=== PATIENT | female | born 1955 | race Caucasian/White ===

== ENCOUNTER 2016-10-07 14:07 | Emergency (ER) | payer BC ==
[2016-10-07 14:17] VITALS: RESP 18
--- NOTE | 2016-10-07 14:35 | ED ---
General Adult HPI - General Chief complaint: Neuro Symptoms/Deficit Stated complaint: R/O CVA Sent by Urgent Care Time Seen by Provider: 10/07/16 14:15 Source: patient, RN notes reviewed Mode of arrival: ambulatory Limitations: no limitations - History of Present Illness Initial comments: This is a 61-year-old female presents emergency department with right-sided facial droop. Patient states heart having some symptoms last evening and they have progressed today per patient states she smiles is her right side of her mouth does not rise. Patient states when she tries to drink she is drooling out of the right side of mouth. Patient states also closing her eyes real tight right eyelid doesn't close status left. Patient states she has had some tingling to the tongue as well. Patient denies any visual disturbance or speech disturbance. Patient denies any headache patient denies any extremity weakness or extremity numbness. Patient denies any recent fever or chills however she does mention she just got over a bad bout of canker sores in her mouth. Patient denies any chest pain shortness of breath difficulty breathing or palpitations - Related Data Home Medications Medication Instructions Recorded Confirmed Fexofenadine HCl [Shamika Allergy] 180 mg PO HS 05/06/15 10/07/16 Levothyroxine Sodium [Synthroid] 75 mcg PO DAILY@1200 05/06/15 10/07/16 Metoprolol Tartrate [Lopressor] 100 mg PO DAILY 05/06/15 10/07/16 Montelukast [Singulair] 10 mg PO HS 05/06/15 10/07/16 Pantoprazole [Protonix] 40 mg PO DAILY 05/06/15 10/07/16 Rosuvastatin [Crestor] 10 mg PO HS 05/06/15 10/07/16 Aspirin [Adult Low Dose Aspirin EC] 81 mg PO DAILY 10/07/16 10/07/16 Fluticasone Nasal [place] [Flonase 1 spray EA NOSTRIL BID 10/07/16 10/07/16 Nasal [place]] Ibuprofen [Motrin] 400 mg PO Q6HR PRN 10/07/16 10/07/16 Melatonin 1 mg PO HS 10/07/16 10/07/16 Multivitamins, Thera [Multivitamin 1 tab PO DAILY 10/07/16 10/07/16 (formulary)] Allergies Allergy/AdvReac Type Severity Reaction Status Date / Time Penicillins Allergy Rash/Hives Verified 10/07/16 15:23 Review of Systems ROS Statement: Those systems with pertinent positive or pertinent negative responses have been documented in the HPI. ROS Other: All systems not noted in ROS Statement are negative. Past Medical History Past Medical History: GERD/Reflux, Hypertension, Thyroid Disorder Additional Past Medical History / Comment(s): 05/06/15 . had a recent normal stress test per pt. She is being admitted with clinical impression of unstable angina pectoris. (, murmur, recent negative stress test, IBS, constipation, hypothyroidism, sciatica with low back and L leg pain, L wrist pulled ligament? hiatal hernia. History of Any Multi-Drug Resistant Organisms: None Reported Past Surgical History: Ablation, Section, Hysterectomy, Tonsillectomy Additional Past Surgical History / Comment(s): Uterine ablation, normal colonoscopy, EGD, 2 C-Sections Past Anesthesia/Blood Transfusion Reactions: Postoperative Nausea & Vomiting ( PONV) Past Psychological History: No Psychological Hx Reported Additional Psychological History / Comment(s): Pt resides with her spouse and 2 adult children. She is independent. She uses no assistive device. She drives. Smoking Status: Never smoker Past Alcohol Use History: None Reported Past Drug Use History: None Reported - Past Family History Father Family Medical History: Cancer Additional Family Medical History / Comment(s): Father has heart problems and has had prostate cancer. He is 78 yrs old. Mother Family Medical History: Cancer, Dementia Additional Family Medical History / Comment(s): Mother of dementia at age 78 yrs. General Exam - General Exam Comments Initial Comments: GENERAL: Patient is well-developed and well-nourished. Patient is nontoxic and well- hydrated and is in no acute distress. ENT: Neck is soft and supple. No significant lymphadenopathy is noted. Oropharynx is clear. Moist mucous membranes. Neck has full range of motion without eliciting any pain. EYES: The sclera were anicteric and conjunctiva were pink and moist. Extraocular movements were intact and pupils were equal round and reactive to light. Eyelids were unremarkable. PULMONARY: Unlabored respirations. Good breath sounds bilaterally. No audible rales rhonchi or wheezing was noted. CARDIOVASCULAR: There is a regular rate and rhythm without any murmurs gallops or rubs. ABDOMEN: Soft and nontender with normal bowel sounds. No palpable organomegaly was noted. There is no palpable pulsatile mass. SKIN: Skin is clear with no lesions or rashes and otherwise unremarkable. NEUROLOGIC: Patient is alert and oriented x3. Patient has some facial droop on the right side about the lip as well as the right eyelid. Motor and sensory are also intact. Normal speech, volume and content. Symmetrical smile. MUSCULOSKELETAL: Normal extremities with adequate strength and full range of motion. No lower extremity swelling or edema. No calf tenderness. LYMPHATICS: No significant lymphadenopathy is noted PSYCHIATRIC: Normal psychiatric evaluation. Normal interpersonal interactions appears functionally intact in deals appropriately with others. No signs of depression. No signs of anxiety. Limitations: no limitations Course Vital Signs 10/07/16 10/07/16 14:12 15:20 Temperature 98.4 F 98.4 F Pulse Rate 84 68 Respiratory 18 18 Rate Blood Pressure 186/101 187/95 O2 Sat by Pulse 99 99 Oximetry Medical Decision Making - Medical Decision Making EKG shows normal sinus rhythm at 74 bpm MT interval 140 QRS is 80 QT interval 370 QTC is 419 per patient's EKG shows no ST segment elevation or depression or T-wave abdomen is noted. CT shows no acute abnormality. Because the patient had symptoms similar to Alvarenga's palsy I started her on her cycle for prednisone. I spoke with Dr. Shaw and I will be admitting the patient with a neurological consult. - Lab Data Result diagrams: 10/07/16 14:42 10/07/16 14:42 Lab Results 10/07/16 10/07/16 10/07/16 Range/Units 14:42 14:42 14:42 WBC 6.6 (3.8-10.6) k/uL RBC 4.65 (3.80-5.40) m/uL Hgb 12.6 (11.4-16.0) gm/dL Hct 37.0 (34.0-46.0) % MCV 79.7 L (80.0-100.0) fL MCH 27.1 (25.0-35.0) pg MCHC 34.0 (31.0-37.0) g/dL RDW 12.8 (11.5-15.5) % Plt Count 335 (150-450) k/uL Neutrophils % 54 % Lymphocytes % 33 % Monocytes % 8 % Eosinophils % 1 % Basophils % 0 % Neutrophils # 3.6 (1.3-7.7) k/uL Lymphocytes # 2.2 (1.0-4.8) k/uL Monocytes # 0.5 (0-1.0) k/uL Eosinophils # 0.1 (0-0.7) k/uL Basophils # 0.0 (0-0.2) k/uL PT (9.0-12.0) sec INR (<1.1) APTT (22.0-30.0) sec Sodium 143 (137-145) mmol/L Potassium 4.0 (3.5-5.1) mmol/L Chloride 107 (98-107) mmol/L Carbon Dioxide 25 (22-30) mmol/L Anion Gap 11 mmol/L BUN 13 (7-17) mg/dL Creatinine 0.73 (0.52-1.04) mg/dL Est GFR (MDRD) Af Amer >60 (>60 ml/min/1.73 sqM) Est GFR (MDRD) Non-Af >60 (>60 ml/min/1.73 sqM) Glucose 113 H (74-99) mg/dL Calcium 9.8 (8.4-10.2) mg/dL Total Bilirubin 0.4 (0.2-1.3) mg/dL AST 31 (14-36) U/L ALT 45 (9-52) U/L Alkaline Phosphatase 120 (38-126) U/L Total Creatine Kinase 53 (30-135) U/L CK-MB (CK-2) 0.6 (0.0-2.4) ng/mL CK-MB (CK-2) Rel Index 1.1 Troponin I <0.012 (0.000-0.034) ng/mL Total Protein 7.8 (6.3-8.2) g/dL Albumin 4.6 (3.5-5.0) g/dL 10/07/16 Range/Units 14:42 WBC (3.8-10.6) k/uL RBC (3.80-5.40) m/uL Hgb (11.4-16.0) gm/dL Hct (34.0-46.0) % MCV (80.0-100.0) fL MCH (25.0-35.0) pg MCHC (31.0-37.0) g/dL RDW (11.5-15.5) % Plt Count (150-450) k/uL Neutrophils % % Lymphocytes % % Monocytes % % Eosinophils % % Basophils % % Neutrophils # (1.3-7.7) k/uL Lymphocytes # (1.0-4.8) k/uL Monocytes # (0-1.0) k/uL Eosinophils # (0-0.7) k/uL Basophils # (0-0.2) k/uL PT 9.9 (9.0-12.0) sec INR 1.0 (<1.1) APTT 22.4 (22.0-30.0) sec Sodium (137-145) mmol/L Potassium (3.5-5.1) mmol/L Chloride (98-107) mmol/L Carbon Dioxide (22-30) mmol/L Anion Gap mmol/L BUN (7-17) mg/dL Creatinine (0.52-1.04) mg/dL Est GFR (MDRD) Af Amer (>60 ml/min/1.73 sqM) Est GFR (MDRD) Non-Af (>60 ml/min/1.73 sqM) Glucose (74-99) mg/dL Calcium (8.4-10.2) mg/dL Total Bilirubin (0.2-1.3) mg/dL AST (14-36) U/L ALT (9-52) U/L Alkaline Phosphatase (38-126) U/L Total Creatine Kinase (30-135) U/L CK-MB (CK-2) (0.0-2.4) ng/mL CK-MB (CK-2) Rel Index Troponin I (0.000-0.034) ng/mL Total Protein (6.3-8.2) g/dL Albumin (3.5-5.0) g/dL Disposition Clinical Impression: CVA (cerebral vascular accident), Alvarenga's palsy Disposition: ADMITTED IP TO THIS HOSP Referrals: Alejandro Haq MD [Primary Care Provider] - 1-2 days Time of Disposition: 15:53
[2016-10-07 14:59] LABS: Basophils % (A) 0 %; CH 26.9; CHCM 33.9; Eosinophils # (A) 0.1 k/uL (0-0.7); Eosinophils % (A) 1 %; HDW 2.75; HGB 12.6 gm/dL (11.4-16.0); Luc # (Auto) 0.21; Luc % (Auto) 3; Lymphocytes # (A) 2.2 k/uL (1.0-4.8); Lymphocytes % (A) 33 %; MCH 27.1 pg (25.0-35.0); MCV 79.7 fL (80.0-100.0); Mean Platelet Volume 6.8; Monocytes # (A) 0.5 k/uL (0-1.0); Monocytes % (A) 8 %; Neutrophils # (A) 3.6 k/uL (1.3-7.7); Neutrophils % (A) 54 %; RBC 4.65 m/uL (3.80-5.40); RDW 12.8 % (11.5-15.5); WBC 6.6 k/uL (3.8-10.6); WBC (Perox) 6.94
[2016-10-07 15:02] LABS: ALT 45 U/L (9-52); AST 31 U/L (14-36); Alkaline Phosphatase 120 U/L (38-126); Anion Gap 11 mmol/L; Blood Urea Nitrogen 13 mg/dL (7-17); Calcium 9.8 mg/dL (8.4-10.2); Carbon Dioxide 25 mmol/L (22-30); Chloride 107 mmol/L (98-107); Glucose 113 mg/dL (74-99); Non-African American GFR(MDRD) >60 (>60 ml/min/1.73 sqM); Sodium 143 mmol/L (137-145); Total Bilirubin 0.4 mg/dL (0.2-1.3); Total Protein 7.8 g/dL (6.3-8.2)
[2016-10-07 15:06] LABS: Partial Thromboplastin Time 22.4 sec (22.0-30.0); Prothrombin Time 9.9 sec (9.0-12.0)
--- NOTE | 2016-10-07 15:08 | XR ---
EXAMINATION TYPE: XR chest 2V DATE OF EXAM ORDERED: 10/07/2016 3:01 PM HISTORY: altered mental status. REFERENCE: Previous study dated 05/06/2015. FINDINGS: The lungs are clear. Pleural spaces are clear. Heart size is normal. IMPRESSION: NORMAL CHEST.
[2016-10-07 15:13] LABS: Creatine Kinase 53 U/L (30-135)
--- NOTE | 2016-10-07 15:16 | CT ---
EXAMINATION TYPE: CT brain wo con DATE OF EXAM: 10/07/2016 3:07 PM COMPARISON: Previous study dated 07/28/2009. HISTORY: Neuro Deficits CT DLP: 1058 mGycm Automated exposure control for dose reduction was used. FINDINGS: Central structures are midline. There is no evidence of hydrocephalus. No acute focal lesion, mass ef fect or midline shift is seen. I do not see evidence of intracranial blood.. Visualized portions of the paranasal sinuses and mastoids are clear. No depressed skull fracture is s een. IMPRESSION: NORMAL CT SCAN OF THE BRAIN.
[2016-10-07 15:26] LABS: Creatine Kinase MB 0.6 ng/mL (0.0-2.4); Troponin I <0.012 ng/mL (0.000-0.034)
[2016-10-07] MEDS ORDERED: ASPIRIN 325 MG TAB PO STA (15:55)
[2016-10-07 16:04] VITALS: TEMP 98.6
[2016-10-07 17:02] VITALS: BP 169/78; PULSE 68
--- NOTE | 2016-10-07 17:07 | US ---
EXAMINATION TYPE: US carotid duplex BILAT DATE OF EXAM: 10/07/2016 4:55 PM COMPARISON: NONE CLINICAL HISTORY: Stenosis. Right facial drooping, left facial edema EXAM MEASUREMENTS: RIGHT: Peak Systolic Velocity (PSV) cm/sec ----- Right CCA: 91.5 ----- Right ICA: 133.8 ----- Right ECA: 72.3 ICA/CCA ratio: 1.5 RIGHT: End Diastole cm/sec ----- Right CCA: 27.5 ----- Right ICA: 37.2 ----- Right ECA: 12.8 LEFT: Peak Systolic Velocity (PSV) cm/sec ----- Left CCA: 83.2 ----- Left ICA: 129.1 ----- Left ECA: 67.2 ICA/CCA ratio: 1.6 LEFT: End Diastole cm/sec ----- Left CCA: 30.3 ----- Left ICA: 38.6 ----- Left ECA: 12.8 VERTEBRALS (direction of flow): Right Vertebral: Antegrade Left Vertebral: Antegrade Tortuous distal ICA's. IMPRESSION: Bilateral slightly elevated peak systolic velocities of the internal carotid arteries. F inding could relate to underlying hypertension as the degree of tang scale plaquing does not correlat e with hemodynamically significant stenosis. Alternatively stenosis of 50-69% bilaterally could be pr esent if there is lack of history of hypertension.
--- NOTE | 2016-10-07 19:49 | HP ---
HISTORY AND PHYSICAL and DISCHARGE SUMMARY DATE OF ADMISSION: REASON FOR ADMISSION: Right-sided facial numbness and weakness. HISTORY OF PRESENTING ILLNESS: This is a 61-year-old female with history of hypertension who comes in the hospital with complaints of acute-onset right-sided facial weakness and numbness. Patient stated that she noticed some drooping on the right side and diffuse numbness on the right side and inability to close her right eye that started the night before admission. Patient came to the emergency room with concern about a cerebrovascular accident. The patient denies having any additional complaints, including headaches, change in vision, nausea, vomiting focal motor or sensory deficits other than as described above. Patient denies having previous episodes of CVA or TIA. In the emergency room a CT scan of the head did not reveal any acute abnormalities. Her only symptoms are facial drooping and numbness from her forehead to the angle of mandible on the right side across the midline. Past medical history includes: 1. Dyslipidemia. 2. Hypertension. 3. Hypothyroidism. 4. Asthma. 5. Remote history of smoking. Surgical history includes: 1. . 2. Hysterectomy. 3. Tonsillectomy. SOCIAL HISTORY: Previous history of smoking. Denies significant alcohol or drug use. FAMILY HISTORY: Significant for cancer on the paternal side and maternal side of blood prostate cancer. Medications included: 1. Aspirin. 2. Flonase. 3. Motrin. 4. Melatonin. 5. Metoprolol. 6. Synthroid. 7. Montelukast. 8. Pantoprazole. 9. Fexofenadine. Doses were appropriately reviewed and reconciled on discharge. ALLERGIES: PENICILLIN causes rash. REVIEW OF SYSTEMS: Fourteen-point review of systems was done; none pertinent other than what was described in HPI. Physical exam today includes vitals of temperature 98.4, heart rate 84, respiratory rate 18, blood pressure 186/101. Saturating 99% on room air. GENERALLY: Patient appears to be alert, oriented x3. HEENT: The pupils are equal and reactive to light and accommodation. HEART: S1, S2 present. No murmur appreciated. LUNGS: Good air entry. No wheezing or rhonchi noted. ABDOMINAL EXAM: Soft, nontender, no organomegaly appreciated. GENITOURINARY: No Duran in place. EXTREMITIES: Pulses can be palpated distally. Denies any tenderness on gross palpation. SKIN: On a gross skin exam does not appear to have any purpura or any skin rashes that were noted. NEUROLOGICALLY: On the right side there is a droop at the angle of the mouth on the right, some weakness of the orbicularis oculi on evaluation of lid retraction. Patient does state she has numbness across the forehead and across the lower part of the face on the right side. Muscle strength is 5 out of 5 in all 4 extremities. Deep tendon reflexes are within normal limits. She is able to perform serial 7s. She is able to recall 3 objects after 5 minutes. Cranial nerves from 2 through 12 other than the facial nerve are within normal limits. RADIOLOGIC IMAGING: CT scan: no abnormalities noted. EKG did not reveal any abnormalities. No ST-T-wave elevations were noted. Laboratory data include hemoglobin 12.6, hematocrit 37, white count 6.6, platelets 335; sodium 143, potassium 4, chloride 107, bicarb 25; BUN 13, creatinine 0.73. ASSESSMENT AND PLAN: 1. Patient was initially evaluated for cerebrovascular accident. However, it appears to be a clear-cut Alvarenga's palsy on the right side. 2. Hypertension, slightly accelerated. 3. Dyslipidemia. 4. Hypothyroidism. 5. History of asthma. 6. Remote history of tobacco use. PLAN: With patient having Alvarenga's palsy, patient will be discharged on a prednisone dose for about 5 days 50 mg b.i.d., valcyclovir to continue for 7 days, and patient will also be added on amlodipine 5 mg, as the blood pressure is slightly elevated. It appears to be an upper motor neuron lesion. Hence there is no significant concern for a cerebrovascular accident. I did discuss that, if patient does seem to have onset of new symptoms, including any focal weakness, to come into the emergency room as soon as possible. Patient was comfortable with disposition. Patient is recommended to follow up with Dr. Haq, who is her primary care physician, in 1 to 2 days. If symptoms of Alvarenga's palsy continue to persist thereafter, she could be referred to a neurologist for further evaluation. I did discuss the effectiveness of steroids in these cases and possibility of prolonged symptoms for a long period of time as well. Patient and her family were comfortable with the disposition and hence patient was discharged home from the emergency room. This was also discussed with the emergency room physician.
[2016-10-07] MEDS ORDERED: valACYclovir 500 MG TAB PO SCH (21:00)
[2016-10-07] MEDS ORDERED: predniSONE 10 MG TAB PO SCH (21:00)
[2016-10-08] MEDS ORDERED: ASPIRIN 325 MG TAB PO SCH (09:00)
== END 2016-10-07 17:43 | disposition home or self-care (01) ==
LOC: EC 14:07 → UNDOADMIN 15:53 → 6SEL 15:53 → EC 17:43
DX: I63.9 Cerebral infarction, unspecified (principal); G51.0 Bell's palsy; K21.9 Gastro-esophageal reflux disease without esophagitis; I10 Essential (primary) hypertension; E03.9 Hypothyroidism, unspecified; K58.9 Irritable bowel syndrome, unspecified; Z79.82 Long term (current) use of aspirin; Z79.899 Other long term (current) drug therapy; Z88.0 Allergy status to penicillin
CPT/HCPCS: 36415; 70450; 71020; 80053; 82550; 82553; 84484; 85025; 85610; 85730; 93005; 93880; 99285

== ENCOUNTER 2017-02-03 09:42 | Day surgery (SDC) | payer BC ==
[2017-02-02 09:18] VITALS: BMI 29.7
[~2017-02-03 09:42] MED LIST: LACTATED RINGERS 1,000 ML IV SCH
[2017-02-03 10:18] VITALS: RESP 16; TEMP 98.1
[2017-02-03] MEDS ORDERED: LIDOCAINE 1% 20 ML VIAL (10MG/ML) FOR IV START INTRADERMA ONE (10:23)
[2017-02-03] MEDS ORDERED: PROPOFOL 10 MG/ML 20 ML VIAL IV ONE (10:43)
--- NOTE | 2017-02-03 10:56 | P.PCN ---
Date of Procedure: 02/03/17 Preoperative Diagnosis: Postoperative Diagnosis: Procedure(s) Performed: BRIEF HISTORY: Patient is a 62-year-old pleasant female, scheduled for an elective colonoscopy as a part of screening for colorectal neoplasia. PROCEDURE PERFORMED: Colonoscopy. PREOPERATIVE DIAGNOSIS: Screening for colon cancer. IV sedation per Anesthesia. PROCEDURE: After informed consent was obtained, the patient, was brought into the endoscopy unit. IV sedation was administered by Anesthesia under continuous monitoring. Digital rectal examination was normal. Initially the Olympus CF- 160 flexible video colonoscope was then inserted in the rectum, gradually advanced into the cecum without any difficulty. Careful examination was performed as the scope was gradually being withdrawn. Ileocecal valve and the appendiceal orifice were visualized and appeared normal. Prep was excellent. Mucosa of the cecum, ascending colon, transverse colon, descending colon, sigmoid colon, and rectum appeared normal. Retroflexion was performed in the rectum and no lesions were seen. The patient tolerated the procedure well. IMPRESSION: Normal-appearing colon from rectum to cecum no evidence of colorectal neoplasia . RECOMMENDATIONS: Findings of this examination were discussed with the patient as well as her family. She was advised to have a repeat screening colonoscopy in 10 years. Implants: Indications for Procedure: Operative Findings: Description of Procedure:
[2017-02-03 11:18] VITALS: BP 142/81; PULSE 61
== END 2017-02-03 11:41 | disposition home or self-care (01) ==
LOC: ORWHC2ENDO 09:42
PROVIDERS: ATTEND Internal Medicine Gastroenterology
DX: Z12.11 Encounter for screening for malignant neoplasm of colon (principal); G43.909 Migraine, unspecified, not intractable, without status migrainosus; K21.9 Gastro-esophageal reflux disease without esophagitis; K58.9 Irritable bowel syndrome, unspecified; Z88.0 Allergy status to penicillin; Z79.1 Long term (current) use of non-steroidal anti-inflammatories (NSAID); Z79.82 Long term (current) use of aspirin; Z79.51 Long term (current) use of inhaled steroids; Z79.899 Other long term (current) drug therapy
CPT/HCPCS: J2704; G0121

== ENCOUNTER → 2018-03-29 | Outpatient (CLI) | payer BC ==
--- NOTE | 2018-04-02 09:11 | MM ---
Reason for exam: screening (asymptomatic). Last mammogram was performed 5 years ago. History: Patient is postmenopausal. Family history of breast cancer in mother at age 58, breast cancer in aunt at age 58, and breast cancer in aunt. Took hormonal contraceptives for 7 years. Physical Findings: A clinical breast exam by your physician is recommended on an annual basis and results should be correlated with mammographic findings. MG 3D Screening Mammo W/Cad Bilateral CC and MLO view(s) were taken. Prior study comparison: March 27, 2013, [facility] DIGITAL LEFT BREAST MAMMOGRAM w/CAD. March 20, 2013, bilateral digital screening mammo w/CAD. The breast tissue is heterogeneously dense. This may lower the sensitivity of mammography. No significant changes when compared with prior studies. ASSESSMENT: Benign, BI-RAD 2 RECOMMENDATION: Routine screening mammogram of both breasts in 1 year.
== END | disposition home or self-care (01) ==
LOC: RADMAMWWP 16:08
PROVIDERS: ATTEND Family Medicine
DX: Z12.31 Encounter for screening mammogram for malignant neoplasm of breast (principal)
CPT/HCPCS: 77063; 77067

== ENCOUNTER 2018-11-12 12:55 | Emergency (ER) | payer BC ==
[2018-11-12 13:27] VITALS: RESP 18
[2018-11-12] MEDS ORDERED: SODIUM CHLORIDE 0.9% 500 ML 500 ML IV STA (13:35)
[2018-11-12 13:56] LABS: Basophils % (A) 0 %; Eosinophils # (A) 0.1 k/uL (0-0.7); Eosinophils % (A) 0 %; HCT 37.3 % (34.0-46.0); HGB 11.9 gm/dL (11.4-16.0); Lymphocytes % (A) 29 %; MCH 26.5 pg (25.0-35.0); MCV 82.8 fL (80.0-100.0); Monocytes # (A) 0.9 k/uL (0-1.0); Monocytes % (A) 6 %; Neutrophils # (A) 8.3 k/uL (1.3-7.7); Neutrophils % (A) 60 %; Platelet Count 405 k/uL (150-450); RBC 4.51 m/uL (3.80-5.40); RDW 13.4 % (11.5-15.5); WBC 13.7 k/uL (3.8-10.6)
[2018-11-12 13:57] LABS: Appearance,Urine Clear (Clear); Bacteria,Urine Few /hpf; Bilirubin,Urine Negative (Negative); Blood,Urine Negative (Negative); Color,Urine Light Yellow; Glucose,Urine (UA) Negative (Negative); Ketones,Urine Negative (Negative); Leukocyte Esterase,Urine Large (Negative); Mucus,Urine Rare /hpf; Nitrite,Urine Negative (Negative); PH, Urine 5.5 (5.0-8.0); Protein,Urine Negative (Negative); RBC,Urine 3 /hpf (0-5); Specific Gravity,Urine 1.007 (1.001-1.035); Squamous Epithelial Cell,Urine 1 /hpf (0-4); Urobilinogen,Urine <2.0 mg/dL (<2.0); WBC,Urine 9 /hpf (0-5)
[2018-11-12 14:08] LABS: African American GFR (CKD) >90 (>60 ml/min/1.73 sqM); Albumin 4.2 g/dL (3.5-5.0); Anion Gap 11 mmol/L; Blood Urea Nitrogen 15 mg/dL (7-17); Carbon Dioxide 24 mmol/L (22-30); Chloride 104 mmol/L (98-107); Glucose 80 mg/dL (74-99); Sodium 139 mmol/L (137-145); Total Bilirubin 0.5 mg/dL (0.2-1.3); Total Protein 6.9 g/dL (6.3-8.2)
[2018-11-12 14:10] LABS: ALT 16 U/L (9-52); AST 26 U/L (14-36); Alkaline Phosphatase 94 U/L (38-126); Magnesium 1.7 mg/dL (1.6-2.3); Potassium 4.2 mmol/L (3.5-5.1)
[2018-11-12 14:17] LABS: INR 0.9 (<1.2); Prothrombin Time 10.1 sec (9.0-12.0)
--- NOTE | 2018-11-12 14:29 | XR ---
EXAMINATION TYPE: XR chest 2V DATE OF EXAM: 11/12/2018 COMPARISON: 10/07/2016 HISTORY: Syncope TECHNIQUE: Frontal and lateral views of the chest are obtained. FINDINGS: There is no focal air space opacity, pleural effusion, or pneumothorax seen. The cardiac silhouette size is within normal limits. Minimal multilevel degenerative changes of the thoracic spin e. The osseous structures are intact. IMPRESSION: No acute cardiopulmonary process.
[2018-11-12] MEDS ORDERED: hydrALAZINE HCL 20 MG/ML 1 ML VIAL IVP STA (14:31)
--- NOTE | 2018-11-12 15:09 | ED ---
General Adult HPI - General Chief complaint: Syncope Stated complaint: near syncope Time Seen by Provider: 11/12/18 13:35 Source: patient Mode of arrival: EMS Limitations: no limitations - History of Present Illness Initial comments: 63-year-old female presenting for presyncope. Patient states that today while in the hallway at work she felt sweaty she felt like her knees were shaking she felt like her heart was racing. She has any chest pain or shortness of breath. Patient states she did eat at 6 AM this morning. Patient states that the symptoms occurred around 11 AM. Patient states she then walked to the office at down. She states that they called EMS because they thought she might pass out. Patient denies any syncope. Patient denies any headache dizziness nausea vomiting epigastric pain and indigestion upper extremity paresthesias. Patient states she has had experience with her heart racing in the past. 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 Patient states she is feeling fine now. She states that when EMS arrived her sugar was 73. She was provided or issues. Patient denies any leg swelling recent travel recent surgeries she denies any history of experiencing recent chest pain or shortness of breath. She has history of blood clots or DVTs she denies hemoptysis. She denies any infectious symptoms fever chills or night sweats. Patient denies a dysuria urgency frequency. Remaining review of systems negative. Upon arrival patient is a symptomaticall appearing well. BP elevated. - Related Data Home Medications Medication Instructions Recorded Confirmed Levothyroxine Sodium [Synthroid] 75 mcg PO DAILY 05/06/15 11/12/18 Metoprolol Tartrate [Lopressor] 100 mg PO DAILY 05/06/15 11/12/18 Montelukast [Singulair] 10 mg PO HS 05/06/15 11/12/18 Pantoprazole [Protonix] 40 mg PO BID 05/06/15 11/12/18 Rosuvastatin [Crestor] 10 mg PO HS 05/06/15 11/12/18 Fluticasone Nasal [place] [Flonase 2 spray EA NOSTRIL DAILY 10/07/16 11/12/18 Nasal [place]] Citalopram Hydrobromide [CeleXA] 20 mg PO DAILY 11/12/18 11/12/18 Lisinopril [Prinivil] 5 mg PO DAILY 11/12/18 11/12/18 metFORMIN HCL [Glucophage] 500 mg PO BID 11/12/18 11/12/18 methylPREDNISolone [Medrol Dose See Taper PO DIRECTED 11/12/18 11/12/18 Pack] Allergies Allergy/AdvReac Type Severity Reaction Status Date / Time Penicillins Allergy Rash/Hives Verified 11/12/18 13:27 Review of Systems ROS Statement: Those systems with pertinent positive or pertinent negative responses have been documented in the HPI. ROS Other: All systems not noted in ROS Statement are negative. Past Medical History Past Medical History: GERD/Reflux, Hypertension, Thyroid Disorder Additional Past Medical History / Comment(s): HEART murmur, IBS, hiatal hernia. History of Any Multi-Drug Resistant Organisms: None Reported Past Surgical History: Section, Hysterectomy, Orthopedic Surgery, To nsillectomy, Uterine Ablation Additional Past Surgical History / Comment(s): RT CARPAL TUNNEL, 2 C-Sections Past Anesthesia/Blood Transfusion Reactions: Postoperative Nausea & Vomiting (PONV) Past Psychological History: No Psychological Hx Reported Smoking Status: Never smoker Past Alcohol Use History: None Reported Past Drug Use History: None Reported - Past Family History Father Family Medical History: Cancer Additional Family Medical History / Comment(s): Father has heart problems and has had prostate cancer. He is 78 yrs old. Mother Family Medical History: Cancer, Dementia Additional Family Medical History / Comment(s): Mother of dementia at age 78 yrs. General Exam - General Exam Comments Initial Comments: General: The patient is awake and alert, in no distress, and does not appear acutely ill. Eye: +3 mm pupils are equal, round and reactive to light, extra-ocular movements are intact. No nystagmus. There is normal conjunctiva bilaterally. No signs of icterus. Ears, nose, mouth and throat: There are moist mucous membranes and no oral lesions. Neck: The neck is supple, there is no tenderness or JVD. Cardiovascular: There is a regular rate and rhythm. No murmur, rub or gallop is appreciated. Respiratory: Lungs are clear to auscultation, respirations are non-labored, breath sounds are equal. No wheezes, stridor, rales, or rhonchi. Gastrointestinal: Soft, non-distended, non-tender abdomen without masses or organomegaly noted. There is no rebound or guarding present. No CVA tenderness. Bowel sounds are unremarkable. Musculoskeletal: Normal ROM, no tenderness. Strength 5/5. Sensation intact. Pulses equal bilaterally 2+. Neurological: A&O x 3. CN II-XII intact, There are no obvious motor or sensory deficits. Coordination appears grossly intact. Speech is normal. No pronator drift. Full strength in the upper extremities. Skin: Skin is warm and dry and no rashes or lesions are noted. No LE edema. Psychiatric: Cooperative, appropriate mood & affect, normal judgment. Limitations: no limitations Course Vital Signs 11/12/18 11/12/18 11/12/18 13:23 13:50 14:34 Temperature 97 F L Pulse Rate 61 57 L 70 Respiratory 18 18 18 Rate Blood Pressure 204/100 183/96 189/95 O2 Sat by Pulse 99 98 99 Oximetry 11/12/18 15:19 Temperature 96.9 F L Pulse Rate 81 Respiratory 18 Rate Blood Pressure 140/72 O2 Sat by Pulse 98 Oximetry EKG Findings - EKG Comments: EKG Findings:: Ventricular rate 59 bpm, IA interval 142 ms, shortest duration 80 ms, QT/QTC 434/429 ms. This is sinus bradycardia no ST elevation or depression. Sinus bradycardia. EKg interpretted by Dr. Crooks. Medical Decision Making - Medical Decision Making Well-appearing 63-year-old female presenting for possible presyncope. Patient has no symptoms on arrival. Patient denies any history of chest pain or shortness of breath. Upon examination there is no focalized findings. No neurological deficits. No murmur. Lungs are clear to auscultation with no lower extremity swelling. Upon arrival EMS patient had slightly decreased blood glucose. Laboratory studies unremarkable. Patient's urinalysis does reveal findings consistent with possible infection patient denies symptoms while culture. EKG no acute findings. Chest x-ray within normal limits. Troponin negative. Patient does have elevated blood pressure did take blood pressures this morning. Patient improved her blood pressure upon a menstruation of IV hydralazine. I discussed the case might any provider Dr. Crooks reviewed patient's EKG as well as laboratory studies and discuss history as well as patient's past medical history. Patient is requesting discharge at this time we feel patient is stable for discharge with strict return parameters. We suggested patient follow-up with her die try out worker as well primary care provider. - Lab Data Result diagrams: 11/12/18 13:15 11/12/18 13:15 Lab Results 11/12/18 11/12/18 11/12/18 Range/Units 13:15 13:15 13:15 WBC 13.7 H (3.8-10.6) k/uL RBC 4.51 (3.80-5.40) m/uL Hgb 11.9 (11.4-16.0) gm/dL Hct 37.3 (34.0-46.0) % MCV 82.8 (80.0-100.0) fL MCH 26.5 (25.0-35.0) pg MCHC 32.0 (31.0-37.0) g/dL RDW 13.4 (11.5-15.5) % Plt Count 405 (150-450) k/uL Neutrophils % 60 % Lymphocytes % 29 % Monocytes % 6 % Eosinophils % 0 % Basophils % 0 % Neutrophils # 8.3 H (1.3-7.7) k/uL Lymphocytes # 4.0 (1.0-4.8) k/uL Monocytes # 0.9 (0-1.0) k/uL Eosinophils # 0.1 (0-0.7) k/uL Basophils # 0.0 (0-0.2) k/uL PT 10.1 (9.0-12.0) sec INR 0.9 (<1.2) APTT 23.0 (22.0-30.0) sec Sodium 139 (137-145) mmol/L Potassium 4.2 (3.5-5.1) mmol/L Chloride 104 (98-107) mmol/L Carbon Dioxide 24 (22-30) mmol/L Anion Gap 11 mmol/L BUN 15 (7-17) mg/dL Creatinine 0.76 (0.52-1.04) mg/dL Est GFR (CKD-EPI)AfAm >90 (>60 ml/min/1.73 sqM) Est GFR (CKD-EPI)NonAf 85 (>60 ml/min/1.73 sqM) Glucose 80 (74-99) mg/dL Calcium 9.0 (8.4-10.2) mg/dL Magnesium 1.7 (1.6-2.3) mg/dL Total Bilirubin 0.5 (0.2-1.3) mg/dL AST 26 (14-36) U/L ALT 16 (9-52) U/L Alkaline Phosphatase 94 (38-126) U/L Troponin I (0.000-0.034) ng/mL Total Protein 6.9 (6.3-8.2) g/dL Albumin 4.2 (3.5-5.0) g/dL Urine Color Urine Appearance (Clear) Urine pH (5.0-8.0) Ur Specific [place] (1.001-1.035) Urine Protein (Negative) Urine Glucose (UA) (Negative) Urine Ketones (Negative) Urine Blood (Negative) Urine Nitrite (Negative) Urine Bilirubin (Negative) Urine Urobilinogen (<2.0) mg/dL Ur Leukocyte Esterase (Negative) Urine RBC (0-5) /hpf Urine WBC (0-5) /hpf Ur Squamous Epith Cells (0-4) /hpf Urine Bacteria (None) /hpf Urine Mucus (None) /hpf 11/12/18 11/12/18 Range/Units 13:15 13:15 WBC (3.8-10.6) k/uL RBC (3.80-5.40) m/uL Hgb (11.4-16.0) gm/dL Hct (34.0-46.0) % MCV (80.0-100.0) fL MCH (25.0-35.0) pg MCHC (31.0-37.0) g/dL RDW (11.5-15.5) % Plt Count (150-450) k/uL Neutrophils % % Lymphocytes % % Monocytes % % Eosinophils % % Basophils % % Neutrophils # (1.3-7.7) k/uL Lymphocytes # (1.0-4.8) k/uL Monocytes # (0-1.0) k/uL Eosinophils # (0-0.7) k/uL Basophils # (0-0.2) k/uL PT (9.0-12.0) sec INR (<1.2) APTT (22.0-30.0) sec Sodium (137-145) mmol/L Potassium (3.5-5.1) mmol/L Chloride (98-107) mmol/L Carbon Dioxide (22-30) mmol/L Anion Gap mmol/L BUN (7-17) mg/dL Creatinine (0.52-1.04) mg/dL Est GFR (CKD-EPI)AfAm (>60 ml/min/1.73 sqM) Est GFR (CKD-EPI)NonAf (>60 ml/min/1.73 sqM) Glucose (74-99) mg/dL Calcium (8.4-10.2) mg/dL Magnesium (1.6-2.3) mg/dL Total Bilirubin (0.2-1.3) mg/dL AST (14-36) U/L ALT (9-52) U/L Alkaline Phosphatase (38-126) U/L Troponin I <0.012 (0.000-0.034) ng/mL Total Protein (6.3-8.2) g/dL Albumin (3.5-5.0) g/dL Urine Color Light Yellow Urine Appearance Clear (Clear) Urine pH 5.5 (5.0-8.0) Ur Specific [place] 1.007 (1.001-1.035) Urine Protein Negative (Negative) Urine Glucose (UA) Negative (Negative) Urine Ketones Negative (Negative) Urine Blood Negative (Negative) Urine Nitrite Negative (Negative) Urine Bilirubin Negative (Negative) Urine Urobilinogen <2.0 (<2.0) mg/dL Ur Leukocyte Esterase Large H (Negative) Urine RBC 3 (0-5) /hpf Urine WBC 9 H (0-5) /hpf Ur Squamous Epith Cells 1 (0-4) /hpf Urine Bacteria Few H (None) /hpf Urine Mucus Rare H (None) /hpf Disposition Clinical Impression: Heart palpitations, Weakness, Elevated blood pressure reading Disposition: HOME SELF-CARE Condition: Good Instructions (If sedation given, give patient instructions): Heart Palpitations (ED), Near Syncope (ED) Additional Instructions: Please follow-up with family doctor in the next 2 days, please follow-up with your die try out worker. Please return to emergency room if the symptoms increase or worsen or for any other concerns. Immediate return for any episodes of presyncope, chest pain, shortness of breath. Is patient prescribed a controlled substance at d/c from ED?: No Referrals: Alejandro Haq MD [Primary Care Provider] - 1-2 days Time of Disposition: 15:08
[2018-11-12 15:21] VITALS: BP 140/72; PULSE 81; TEMP 96.9
== END 2018-11-12 15:19 | disposition home or self-care (01) ==
LOC: EC 12:55
DX: R53.1 Weakness (principal); R00.2 Palpitations; I10 Essential (primary) hypertension; R55 Syncope and collapse; K21.9 Gastro-esophageal reflux disease without esophagitis; E07.9 Disorder of thyroid, unspecified; Z87.19 Personal history of other diseases of the digestive system; Z90.710 Acquired absence of both cervix and uterus; Z98.890 Other specified postprocedural states; Z79.52 Long term (current) use of systemic steroids; Z79.84 Long term (current) use of oral hypoglycemic drugs; Z79.890 Hormone replacement therapy; Z79.899 Other long term (current) drug therapy; Z88.0 Allergy status to penicillin
CPT/HCPCS: 36415; 93005; 80053; 83735; 84484; 85025; 85610; 85730; 81001; 71046; 99285; 96374; J0360

== ENCOUNTER 2019-09-16 16:44 | Emergency (ER) | payer BC ==
[2019-09-16] MEDS ORDERED: KETOROLAC 30 MG/ML 1 ML VIAL IVP STA (18:07)
[2019-09-16] MEDS ORDERED: SODIUM CHLORIDE 0.9% 500 ML 500 ML IV STA (18:07)
[2019-09-16 18:24] LABS: Basophils % (A) 0 %; Eosinophils # (A) 0.1 k/uL (0-0.7); Eosinophils % (A) 1 %; HCT 38.7 % (34.0-46.0); HGB 12.7 gm/dL (11.4-16.0); Lymphocytes % (A) 33 %; MCH 26.8 pg (25.0-35.0); MCHC 32.7 g/dL (31.0-37.0); MCV 81.8 fL (80.0-100.0); Mean Platelet Volume 7.5; Monocytes # (A) 0.4 k/uL (0-1.0); Monocytes % (A) 7 %; Neutrophils # (A) 3.4 k/uL (1.3-7.7); Neutrophils % (A) 57 %; Platelet Count 318 k/uL (150-450); RBC 4.73 m/uL (3.80-5.40)
[2019-09-16 18:32] LABS: INR 0.9 (<1.2); Partial Thromboplastin Time 22.5 sec (22.0-30.0); Prothrombin Time 9.6 sec (9.0-12.0)
[2019-09-16 18:38] LABS: ALT 21 U/L (4-34); AST 28 U/L (14-36); African American GFR (CKD) >90 (>60 ml/min/1.73 sqM); Albumin 4.4 g/dL (3.5-5.0); Alkaline Phosphatase 95 U/L (38-126); Anion Gap 6 mmol/L; Blood Urea Nitrogen 10 mg/dL (7-17); Calcium 9.7 mg/dL (8.4-10.2); Carbon Dioxide 27 mmol/L (22-30); Chloride 106 mmol/L (98-107); Glucose 94 mg/dL (74-99); Magnesium 1.9 mg/dL (1.6-2.3); Non-African American GFR(CKD) >90 (>60 ml/min/1.73 sqM); Sodium 139 mmol/L (137-145); Total Bilirubin 0.2 mg/dL (0.2-1.3); Total Protein 7.2 g/dL (6.3-8.2)
--- NOTE | 2019-09-16 18:38 | XR ---
EXAMINATION TYPE: XR chest 2V DATE OF EXAM: 09/16/2019 COMPARISON: 11/12/2018 TECHNIQUE: PA and lateral views submitted. HISTORY: Dysrhythmia FINDINGS: The lungs are clear and there is no pneumothorax, pleural effusion, or focal pneumonia. Hypertrophi c and degenerative change of the spine. No overt failure. Heart size stable. IMPRESSION: 1. No acute process.
[2019-09-16 19:45] LABS: T4, Free (Free Thyroxine) 1.35 ng/dL (0.78-2.19)
[2019-09-16 19:46] VITALS: BP 159/78; PULSE 58; RESP 17; TEMP 97.7
--- NOTE | 2019-09-16 19:48 | ED ---
General Adult HPI - General Chief complaint: Headache Stated complaint: headache/heart palpitations Time Seen by Provider: 09/16/19 17:05 Source: patient Mode of arrival: wheelchair Limitations: no limitations - History of Present Illness Initial comments: 64-year-old female patient presents to the emergency department today for evaluation of feeling unwell. Patient states her up-to-date stay she has had a mild headache. States that she did have some dizziness earlier in the day. She is also reporting heart palpitations. States it felt like a fluttering in her chest. Patient states that she has had palpitations in the past but has been a long time. States that her blood pressure has been elevated at home. She is currently taking metoprolol and lisinopril daily. States she takes her medications as directed. She denies any chest pain or shortness of breath. Denies any numbness or tingling in her extremities. States that she has been feeling mildly nauseated throughout the day but has been able to eat and drink. Denies any new medications. Patient denies any recent rash, cough, abdominal pain, diarrhea, constipation, back pain, weakness, hematuria, dysuria, urinary urgency, urinary frequency, visual changes, or any other complaints. - Related Data Home Medications Medication Instructions Recorded Confirmed Levothyroxine Sodium [Synthroid] 75 mcg PO DAILY 05/06/15 11/12/18 Metoprolol Tartrate [Lopressor] 100 mg PO DAILY 05/06/15 11/12/18 Montelukast [Singulair] 10 mg PO HS 05/06/15 11/12/18 Pantoprazole [Protonix] 40 mg PO BID 05/06/15 11/12/18 Rosuvastatin [Crestor] 10 mg PO HS 05/06/15 11/12/18 Fluticasone Nasal [place] [Flonase 2 spray EA NOSTRIL DAILY 10/07/16 11/12/18 Nasal [place]] Citalopram Hydrobromide [CeleXA] 20 mg PO DAILY 11/12/18 11/12/18 Lisinopril [Prinivil] 5 mg PO DAILY 11/12/18 11/12/18 metFORMIN HCL [Glucophage] 500 mg PO BID 11/12/18 11/12/18 methylPREDNISolone [Medrol Dose See Taper PO DIRECTED 11/12/18 11/12/18 Pack] Allergies Allergy/AdvReac Type Severity Reaction Status Date / Time Penicillins Allergy Rash/Hives Verified 11/12/18 13:27 Review of Systems ROS Statement: Those systems with pertinent positive or pertinent negative responses have been documented in the HPI. ROS Other: All systems not noted in ROS Statement are negative. Past Medical History Past Medical History: GERD/Reflux, Hypertension, Thyroid Disorder Additional Past Medical History / Comment(s): HEART murmur, IBS, hiatal hernia. raynauds History of Any Multi-Drug Resistant Organisms: None Reported Past Surgical History: Section, Hysterectomy, Orthopedic Surgery, Tonsillectomy, Uterine Ablation Additional Past Surgical History / Comment(s): RT CARPAL TUNNEL, 2 C-Sections Past Anesthesia/Blood Transfusion Reactions: Postoperative Nausea & Vomiting (PONV) Past Psychological History: No Psychological Hx Reported Smoking Status: Never smoker Past Alcohol Use History: None Reported Past Drug Use History: None Reported - Past Family History Father Family Medical History: Cancer Additional Family Medical History / Comment(s): Father has heart problems and has had prostate cancer. He is 78 yrs old. Mother Family Medical History: Cancer, Dementia Additional Family Medical History / Comment(s): Mother of dementia at age 78 yrs. General Exam Limitations: no limitations General appearance: alert, in no apparent distress, other (This is a well- developed, well-nourished adult female patient in no acute distress. Vital signs upon presentation are temperature 97.9F, pulse 60, respirations 18, blood pressure 203/94, pulse ox 100% on room air.) Eye exam: Present: normal appearance, PERRL, EOMI. Absent: scleral icterus, conjunctival injection, periorbital swelling ENT exam: Present: normal exam, normal oropharynx, mucous membranes moist Respiratory exam: Present: normal lung sounds bilaterally. Absent: respiratory distress, wheezes, rales, rhonchi, stridor Cardiovascular Exam: Present: regular rate, normal rhythm, normal heart sounds. Absent: systolic murmur, diastolic murmur, rubs, gallop, clicks GI/Abdominal exam: Present: soft, normal bowel sounds. Absent: distended, tenderness, guarding, rebound, rigid Neurological exam: Present: alert, oriented X3, CN II-XII intact, other (Strength in all 4 extremities is 5/5) Psychiatric exam: Present: normal affect, normal mood Skin exam: Present: warm, dry, intact, normal color. Absent: rash Course Vital Signs 09/16/19 09/16/19 09/16/19 16:45 17:30 18:00 Temperature 97.9 F Pulse Rate 60 54 L 53 L Respiratory 18 16 18 Rate Blood Pressure 203/94 185/83 173/83 O2 Sat by Pulse 100 98 97 Oximetry 09/16/19 09/16/19 09/16/19 18:30 19:00 19:46 Temperature 97.7 F Pulse Rate 54 L 54 L 58 L Respiratory 18 18 17 Rate Blood Pressure 159/88 174/88 159/78 O2 Sat by Pulse 97 Oximetry EKG Findings - EKG Comments: EKG Findings:: EKG obtained at 1717 shows sinus bradycardia at the ventricular rate of 55, [place] interval 156, QRS duration 80, QT 432, QTc 413. No evidence of ST elevation or depression. Medical Decision Making - Medical Decision Making 64-year-old female patient presented to the emergency department today for evaluation of high blood pressure, headache, and palpitations. Physical examination is unremarkable. She is neurologically intact with no focal deficits. EKG showed sinus bradycardia with a heart rate in the 50s. Labs reviewed and did reveal a low TSH with a normal T4. Other labs are unremarkable. Upon reevaluation patient does report improve symptoms. She'll be discharged home at this time to follow-up with her primary care physician, she does have an appointment tomorrow. She is urged discuss TSH level as well as blood pressure, and possible heart monitoring for the palpitations. Return parameters were discussed in detail. She verbalizes understanding and agrees with this plan. - Lab Data Result diagrams: 09/16/19 18:12 09/16/19 18:12 Lab Results 09/16/19 09/16/19 09/16/19 Range/Units 18:12 18:12 18:12 WBC 6.0 (3.8-10.6) k/uL RBC 4.73 (3.80-5.40) m/uL Hgb 12.7 (11.4-16.0) gm/dL Hct 38.7 (34.0-46.0) % MCV 81.8 (80.0-100.0) fL MCH 26.8 (25.0-35.0) pg MCHC 32.7 (31.0-37.0) g/dL RDW 13.0 (11.5-15.5) % Plt Count 318 (150-450) k/uL Neutrophils % 57 % Lymphocytes % 33 % Monocytes % 7 % Eosinophils % 1 % Basophils % 0 % Neutrophils # 3.4 (1.3-7.7) k/uL Lymphocytes # 2.0 (1.0-4.8) k/uL Monocytes # 0.4 (0-1.0) k/uL Eosinophils # 0.1 (0-0.7) k/uL Basophils # 0.0 (0-0.2) k/uL PT 9.6 (9.0-12.0) sec INR 0.9 (<1.2) APTT 22.5 (22.0-30.0) sec Sodium 139 (137-145) mmol/L Potassium 4.0 (3.5-5.1) mmol/L Chloride 106 (98-107) mmol/L Carbon Dioxide 27 (22-30) mmol/L Anion Gap 6 mmol/L BUN 10 (7-17) mg/dL Creatinine 0.64 (0.52-1.04) mg/dL Est GFR (CKD-EPI)AfAm >90 (>60 ml/min/1.73 sqM) Est GFR (CKD-EPI)NonAf >90 (>60 ml/min/1.73 sqM) Glucose 94 (74-99) mg/dL Calcium 9.7 (8.4-10.2) mg/dL Magnesium 1.9 (1.6-2.3) mg/dL Total Bilirubin 0.2 (0.2-1.3) mg/dL AST 28 (14-36) U/L ALT 21 (4-34) U/L Alkaline Phosphatase 95 (38-126) U/L Troponin I (0.000-0.034) ng/mL Total Protein 7.2 (6.3-8.2) g/dL Albumin 4.4 (3.5-5.0) g/dL TSH 0.208 L (0.465-4.680) mIU/L Free T4 1.35 (0.78-2.19) ng/dL 09/16/19 Range/Units 18:12 WBC (3.8-10.6) k/uL RBC (3.80-5.40) m/uL Hgb (11.4-16.0) gm/dL Hct (34.0-46.0) % MCV (80.0-100.0) fL MCH (25.0-35.0) pg MCHC (31.0-37.0) g/dL RDW (11.5-15.5) % Plt Count (150-450) k/uL Neutrophils % % Lymphocytes % % Monocytes % % Eosinophils % % Basophils % % Neutrophils # (1.3-7.7) k/uL Lymphocytes # (1.0-4.8) k/uL Monocytes # (0-1.0) k/uL Eosinophils # (0-0.7) k/uL Basophils # (0-0.2) k/uL PT (9.0-12.0) sec INR (<1.2) APTT (22.0-30.0) sec Sodium (137-145) mmol/L Potassium (3.5-5.1) mmol/L Chloride (98-107) mmol/L Carbon Dioxide (22-30) mmol/L Anion Gap mmol/L BUN (7-17) mg/dL Creatinine (0.52-1.04) mg/dL Est GFR (CKD-EPI)AfAm (>60 ml/min/1.73 sqM) Est GFR (CKD-EPI)NonAf (>60 ml/min/1.73 sqM) Glucose (74-99) mg/dL Calcium (8.4-10.2) mg/dL Magnesium (1.6-2.3) mg/dL Total Bilirubin (0.2-1.3) mg/dL AST (14-36) U/L ALT (4-34) U/L Alkaline Phosphatase (38-126) U/L Troponin I <0.012 (0.000-0.034) ng/mL Total Protein (6.3-8.2) g/dL Albumin (3.5-5.0) g/dL TSH (0.465-4.680) mIU/L Free T4 (0.78-2.19) ng/dL - Radiology Data Radiology results: report reviewed, image reviewed Two-view x-ray of the chest is obtained. Report was reviewed in its entirety. Impression by Dr. Ference shows no acute process. Disposition Clinical Impression: Headache, Palpitations Disposition: HOME SELF-CARE Condition: Good Instructions (If sedation given, give patient instructions): Heart Palpitations (ED), Acute Headache (ED) Additional Instructions: Increase fluids. Rest. Take an additional lisinopril of her blood pressure continues to be high. If palpitations continue discuss possible heart monitoring with your physician. TSH level was low at 0.208, T4 was normal at 1.35. Follow-up with your primary care physician for recheck this as possible. Return to the emergency department immediately for any new, worsening, or concerning symptoms. Is patient prescribed a controlled substance at d/c from ED?: No Referrals: Alejandro Haq MD [Primary Care Provider] - 1-2 days Time of Disposition: 19:55
== END 2019-09-16 20:06 | disposition home or self-care (01) ==
LOC: EC 16:44
DX: R51 Headache (principal); R00.2 Palpitations; R42 Dizziness and giddiness; R00.1 Bradycardia, unspecified; R94.6 Abnormal results of thyroid function studies; I10 Essential (primary) hypertension; E07.9 Disorder of thyroid, unspecified; K21.9 Gastro-esophageal reflux disease without esophagitis; Z79.890 Hormone replacement therapy; Z79.84 Long term (current) use of oral hypoglycemic drugs; Z79.52 Long term (current) use of systemic steroids; Z79.899 Other long term (current) drug therapy; Z88.0 Allergy status to penicillin
CPT/HCPCS: 36415; 93005; 84439; 80053; 84443; 83735; 84484; 85025; 85610; 85730; 71046; 99284; 96374; 96361; J1885

== ENCOUNTER 2020-09-05 17:34 | Inpatient (IN) | payer BC ==
[2020-09-05] MEDS ORDERED: SODIUM CHLORIDE 0.9% 1,000 ML IV STA ×2 (18:02)
--- NOTE | 2020-09-05 18:22 | ED ---
General Adult HPI - General Chief complaint: Shortness of Breath Stated complaint: Covid+, MARCIE Time Seen by Provider: 09/05/20 17:50 Source: patient, RN notes reviewed Mode of arrival: ambulatory Limitations: no limitations - History of Present Illness Initial comments: Is a 65-year-old female states she's been exposed to Covid 19 odor from both her son and daughter who states she's had symptoms similar today for last 8 days which include nausea vomiting recently diarrhea rhinorrhea no overt shortness of breath she does have a cough also a fever and generalized weakness. He also decreased oral intake. She is here just because she is profoundly weak at this time. Not able to keep fluids down. - Related Data Home Medications Medication Instructions Recorded Confirmed RX: Levothyroxine Sodium 75 mcg PO MOTUWETHFR 05/06/15 09/05/20 [Synthroid] RX: Metoprolol Tartrate [Lopressor] 100 mg PO DAILY 05/06/15 09/05/20 RX: Montelukast [Singulair] 10 mg PO HS 05/06/15 09/05/20 RX: Rosuvastatin [Crestor] 10 mg PO HS 05/06/15 09/05/20 lisinopriL [Prinivil] 5 mg PO HS 11/12/18 09/05/20 metFORMIN HCL [Glucophage] 500 mg PO BID 11/12/18 09/05/20 Aspirin EC [Ecotrin Low Dose] 81 mg PO HS 09/05/20 09/05/20 Citalopram Hydrobromide [CeleXA] 40 mg PO DAILY 09/05/20 09/05/20 Fexofenadine HCl [Shamika Allergy] 180 mg PO HS 09/05/20 09/05/20 Levothyroxine Sodium [Synthroid] 37.5 mcg PO SA 09/05/20 09/05/20 Multivitamins, Thera [Multivitamin 1 tab PO HS 09/05/20 09/05/20 (formulary)] RX: Melatonin 5 mg PO HS 09/05/20 09/05/20 RX: Omeprazole 20 mg PO BID 09/05/20 09/05/20 amLODIPine [Norvasc] 5 mg PO DAILY@1400 09/05/20 09/05/20 lisinopriL [Zestril] 10 mg PO DAILY 09/05/20 09/05/20 Allergies Allergy/AdvReac Type Severity Reaction Status Date / Time Penicillins Allergy Rash/Hives Verified 09/05/20 20:18 Review of Systems ROS Statement: Those systems with pertinent positive or pertinent negative responses have been documented in the HPI. ROS Other: All systems not noted in ROS Statement are negative. Past Medical History Past Medical History: GERD/Reflux, Hypertension, Thyroid Disorder Additional Past Medical History / Comment(s): HEART murmur, IBS, hiatal hernia. raynauds History of Any Multi-Drug Resistant Organisms: None Reported Past Surgical History: Section, Hysterectomy, Orthopedic Surgery, Tonsillectomy, Uterine Ablation Additional Past Surgical History / Comment(s): RT CARPAL TUNNEL, 2 C-Sections Past Anesthesia/Blood Transfusion Reactions: Postoperative Nausea & Vomiting (P ONV) Past Psychological History: No Psychological Hx Reported Smoking Status: Never smoker Past Alcohol Use History: None Reported Past Drug Use History: None Reported - Past Family History Father Family Medical History: Cancer Additional Family Medical History / Comment(s): Father has heart problems and has had prostate cancer. He is 78 yrs old. Mother Family Medical History: Cancer, Dementia Additional Family Medical History / Comment(s): Mother of dementia at age 78 yrs. General Exam - General Exam Comments Initial Comments: This is a well-developed well-nourished awake alert oriented 3 female Limitations: no limitations General appearance: alert, in no apparent distress Head exam: Present: atraumatic, normocephalic, normal inspection Eye exam: Present: normal appearance, PERRL, EOMI. Absent: scleral icterus, conjunctival injection, periorbital swelling ENT exam: Present: mucous membranes dry Neck exam: Present: normal inspection. Absent: tenderness, meningismus, lymphadenopathy Respiratory exam: Present: normal lung sounds bilaterally. Absent: respiratory distress, wheezes, rales, rhonchi, stridor Cardiovascular Exam: Present: regular rate, normal rhythm, normal heart sounds. Absent: systolic murmur, diastolic murmur, rubs, gallop, clicks GI/Abdominal exam: Present: soft, normal bowel sounds. Absent: distended, tenderness, guarding, rebound, rigid Extremities exam: Present: normal inspection, full ROM, normal capillary refill. Absent: tenderness, pedal edema, joint swelling, calf tenderness Back exam: Present: normal inspection Neurological exam: Present: alert, oriented X3, CN II-XII intact Psychiatric exam: Present: normal affect, normal mood Skin exam: Present: warm, dry, intact, normal color. Absent: rash Course Vital Signs 09/05/20 09/05/20 09/05/20 17:37 18:13 18:15 Temperature 100.9 F H 101.1 F H Pulse Rate 84 68 Respiratory 24 20 18 Rate Blood Pressure 130/72 143/74 O2 Sat by Pulse 84 L 98 Oximetry 09/05/20 19:06 Temperature 99.7 F H Pulse Rate 76 Respiratory 18 Rate Blood Pressure 117/71 O2 Sat by Pulse 93 L Oximetry EKG Findings - EKG Results: EKG: interpreted by ERMD, sinus rhythm (Sinus rhythm a 71. Interval 158 QRS 76 QT since QTC 396/428 nonspecific T-wave configuration) Medical Decision Making - Medical Decision Making I did discuss findings with the patient as well as Dr. Finch the patient will be admitted for inpatient treatment. - Lab Data Result diagrams: 09/05/20 18:13 09/05/20 18:13 Lab Results 09/05/20 09/05/20 09/05/20 Range/Units 18:13 18:13 18:13 WBC 3.5 L (3.8-10.6) k/uL RBC 4.25 (3.80-5.40) m/uL Hgb 12.5 (11.4-16.0) gm/dL Hct 35.5 (34.0-46.0) % MCV 83.4 (80.0-100.0) fL MCH 29.3 (25.0-35.0) pg MCHC 35.1 (31.0-37.0) g/dL RDW 12.5 (11.5-15.5) % Plt Count 239 (150-450) k/uL MPV 7.3 Neutrophils % 65 % Lymphocytes % 26 % Monocytes % 5 % Eosinophils % 1 % Basophils % 0 % Neutrophils # 2.3 (1.3-7.7) k/uL Lymphocytes # 0.9 L (1.0-4.8) k/uL Monocytes # 0.2 (0-1.0) k/uL Eosinophils # 0.0 (0-0.7) k/uL Basophils # 0.0 (0-0.2) k/uL PT 9.9 (9.0-12.0) sec INR 0.9 (<1.2) APTT 27.0 (22.0-30.0) sec D-Dimer 0.61 H (<0.60) mg/L FEU Sodium 131 L (137-145) mmol/L Potassium 3.9 (3.5-5.1) mmol/L Chloride 100 (98-107) mmol/L Carbon Dioxide 24 (22-30) mmol/L Anion Gap 7 mmol/L BUN 12 (7-17) mg/dL Creatinine 0.64 (0.52-1.04) mg/dL Est GFR (CKD-EPI)AfAm >90 (>60 ml/min/1.73 sqM) Est GFR (CKD-EPI)NonAf >90 (>60 ml/min/1.73 sqM) Glucose 110 H (74-99) mg/dL Plasma Lactic Acid Jose (0.7-2.0) mmol/L Calcium 8.4 (8.4-10.2) mg/dL Magnesium 1.7 (1.6-2.3) mg/dL Total Bilirubin 0.4 (0.2-1.3) mg/dL AST 51 H (14-36) U/L ALT 21 (4-34) U/L Alkaline Phosphatase 89 (38-126) U/L Creatine Kinase 40 (30-135) U/L Troponin I (0.000-0.034) ng/mL NT-Pro-B Natriuret Pep pg/mL Total Protein 6.2 L (6.3-8.2) g/dL Albumin 3.4 L (3.5-5.0) g/dL Coronavirus (PCR) (Not Detectd) 09/05/20 09/05/20 09/05/20 Range/Units 18:13 18:13 18:13 WBC (3.8-10.6) k/uL RBC (3.80-5.40) m/uL Hgb (11.4-16.0) gm/dL Hct (34.0-46.0) % MCV (80.0-100.0) fL MCH (25.0-35.0) pg MCHC (31.0-37.0) g/dL RDW (11.5-15.5) % Plt Count (150-450) k/uL MPV Neutrophils % % Lymphocytes % % Monocytes % % Eosinophils % % Basophils % % Neutrophils # (1.3-7.7) k/uL Lymphocytes # (1.0-4.8) k/uL Monocytes # (0-1.0) k/uL Eosinophils # (0-0.7) k/uL Basophils # (0-0.2) k/uL PT (9.0-12.0) sec INR (<1.2) APTT (22.0-30.0) sec D-Dimer (<0.60) mg/L FEU Sodium (137-145) mmol/L Potassium (3.5-5.1) mmol/L Chloride (98-107) mmol/L Carbon Dioxide (22-30) mmol/L Anion Gap mmol/L BUN (7-17) mg/dL Creatinine (0.52-1.04) mg/dL Est GFR (CKD-EPI)AfAm (>60 ml/min/1.73 sqM) Est GFR (CKD-EPI)NonAf (>60 ml/min/1.73 sqM) Glucose (74-99) mg/dL Plasma Lactic Acid Jose 0.8 (0.7-2.0) mmol/L Calcium (8.4-10.2) mg/dL Magnesium (1.6-2.3) mg/dL Total Bilirubin (0.2-1.3) mg/dL AST (14-36) U/L ALT (4-34) U/L Alkaline Phosphatase (38-126) U/L Creatine Kinase (30-135) U/L Troponin I <0.012 (0.000-0.034) ng/mL NT-Pro-B Natriuret Pep 73 pg/mL Total Protein (6.3-8.2) g/dL Albumin (3.5-5.0) g/dL Coronavirus (PCR) (Not Detectd) 09/05/20 Range/Units 18:13 WBC (3.8-10.6) k/uL RBC (3.80-5.40) m/uL Hgb (11.4-16.0) gm/dL Hct (34.0-46.0) % MCV (80.0-100.0) fL MCH (25.0-35.0) pg MCHC (31.0-37.0) g/dL RDW (11.5-15.5) % Plt Count (150-450) k/uL MPV Neutrophils % % Lymphocytes % % Monocytes % % Eosinophils % % Basophils % % Neutrophils # (1.3-7.7) k/uL Lymphocytes # (1.0-4.8) k/uL Monocytes # (0-1.0) k/uL Eosinophils # (0-0.7) k/uL Basophils # (0-0.2) k/uL PT (9.0-12.0) sec INR (<1.2) APTT (22.0-30.0) sec D-Dimer (<0.60) mg/L FEU Sodium (137-145) mmol/L Potassium (3.5-5.1) mmol/L Chloride (98-107) mmol/L Carbon Dioxide (22-30) mmol/L Anion Gap mmol/L BUN (7-17) mg/dL Creatinine (0.52-1.04) mg/dL Est GFR (CKD-EPI)AfAm (>60 ml/min/1.73 sqM) Est GFR (CKD-EPI)NonAf (>60 ml/min/1.73 sqM) Glucose (74-99) mg/dL Plasma Lactic Acid Jose (0.7-2.0) mmol/L Calcium (8.4-10.2) mg/dL Magnesium (1.6-2.3) mg/dL Total Bilirubin (0.2-1.3) mg/dL AST (14-36) U/L ALT (4-34) U/L Alkaline Phosphatase (38-126) U/L Creatine Kinase (30-135) U/L Troponin I (0.000-0.034) ng/mL NT-Pro-B Natriuret Pep pg/mL Total Protein (6.3-8.2) g/dL Albumin (3.5-5.0) g/dL Coronavirus (PCR) Detected A (Not Detectd) - Radiology Data Radiology results: report reviewed (J reviewed bilateral interstitial infiltrates), image reviewed Disposition Clinical Impression: COVID-19, Interstitial pneumonia of both lungs, Hypoxemia, Dehydration, Febrile illness, acute Disposition: ADMITTED IP TO THIS [facility] Condition: Fair Referrals: Borgiel,Alejandro, MD [Primary Care Provider] - 1-2 days
[2020-09-05 18:24] LABS: Basophils % (A) 0 %; Eosinophils % (A) 1 %; HCT 35.5 % (34.0-46.0); HGB 12.5 gm/dL (11.4-16.0); Lymphocytes # (A) 0.9 k/uL (1.0-4.8); Lymphocytes % (A) 26 %; MCH 29.3 pg (25.0-35.0); MCHC 35.1 g/dL (31.0-37.0); MCV 83.4 fL (80.0-100.0); Mean Platelet Volume 7.3; Monocytes # (A) 0.2 k/uL (0-1.0); Monocytes % (A) 5 %; Neutrophils # (A) 2.3 k/uL (1.3-7.7); Neutrophils % (A) 65 %; Platelet Count 239 k/uL (150-450); RBC 4.25 m/uL (3.80-5.40); RDW 12.5 % (11.5-15.5); WBC 3.5 k/uL (3.8-10.6)
[2020-09-05 18:37] LABS: INR 0.9 (<1.2)
[2020-09-05 18:38] LABS: Prothrombin Time 9.9 sec (9.0-12.0)
[2020-09-05 18:41] LABS: ALT 21 U/L (4-34); AST 51 U/L (14-36); African American GFR (CKD) >90 (>60 ml/min/1.73 sqM); Albumin 3.4 g/dL (3.5-5.0); Alkaline Phosphatase 89 U/L (38-126); Anion Gap 7 mmol/L; Blood Urea Nitrogen 12 mg/dL (7-17); Calcium 8.4 mg/dL (8.4-10.2); Carbon Dioxide 24 mmol/L (22-30); Chloride 100 mmol/L (98-107); Creatine Kinase 40 U/L (30-135); Glucose 110 mg/dL (74-99); Magnesium 1.7 mg/dL (1.6-2.3); Non-African American GFR(CKD) >90 (>60 ml/min/1.73 sqM); Potassium 3.9 mmol/L (3.5-5.1); Sodium 131 mmol/L (137-145); Total Bilirubin 0.4 mg/dL (0.2-1.3); Total Protein 6.2 g/dL (6.3-8.2)
[2020-09-05 18:48] LABS: D-Dimer 0.61 mg/L FEU (<0.60)
--- NOTE | 2020-09-05 19:09 | XR ---
EXAMINATION TYPE: XR chest 2V DATE OF EXAM: 09/05/2020 COMPARISON: 09/16/2019 HISTORY: Difficulty breathing TECHNIQUE: 2 views FINDINGS: There is bilateral patchy pulmonary airspace infiltrates. Heart size is normal. There is no pleural effusion. There are no hilar masses. There are chest leads. Mediastinum is normal. Bony thor ax is intact. IMPRESSION: Bilateral patchy airspace pneumonia is new compared to old exam. Normal heart.
--- NOTE | 2020-09-05 21:07 | CT ---
EXAMINATION TYPE: CT angio chest DATE OF EXAM: 09/05/2020 COMPARISON: None HISTORY: covid, elevated d-dimer CT DLP: 253.9 mGycm Automated exposure control for dose reduction was used. CONTRAST: Performed with IV Contrast, patient injected with 100 mL of Isovue 370. There are 3-D post processed images. There is extensive patchy airspace infiltrates in both lungs. There is mediastinal and bronchial juan carlos opathy. There are lymph nodes measuring up to almost 2 cm. Heart size is is normal. There is no peric ardial effusion. There is no evidence of filling defect in the pulmonary arteries. Thoracic aorta is intact. There is no aneurysm or dissection. The thoracic spine is intact. IMPRESSION: No evidence of pulmonary embolism. Extensive bilateral pneumonia with mediastinal and bronchial adenopathy.
[2020-09-05] MEDS ORDERED: NALOXONE 0.4 MG/ML 1 ML VIAL IV PRN (21:59)
[2020-09-05] MEDS ORDERED: dexAMETHasone 2 MG TAB PO STA (22:02)
[2020-09-05] MEDS: LEVOTHYROXINE 75 MCG TAB PO SCH (22:56)
[2020-09-05] MEDS: SODIUM CHLORIDE 0.9% 1,000 ML IV SCH (22:56)
[2020-09-06] MEDS ORDERED: ALBUTEROL HFA INHALER INHALATION SCH
[2020-09-06] MEDS ORDERED: ALBUTEROL HFA INHALER INHALATION PRN (00:22)
[2020-09-06] MEDS: ALBUTEROL HFA INHALER INHALATION SCH ×4 (07:49→19:54)
[2020-09-06] MEDS: PANTOPRAZOLE 40 MG TABLET PO SCH ×2 (08:13→20:53)
[2020-09-06] MEDS: lisinopriL 5 MG TAB PO SCH ×2 (08:13→20:53)
[2020-09-06] MEDS: metFORMIN 500 MG TAB PO SCH ×2 (08:13→20:53)
[2020-09-06] MEDS: CHOLECALCIFEROL 25 MCG (1000 IU) TABLET PO SCH (08:13)
[2020-09-06] MEDS: METOPROLOL TARTRATE 50 MG TAB PO SCH (08:13)
[2020-09-06] MEDS: ZINC SULFATE 220 MG CAP PO SCH (08:14)
[2020-09-06] MEDS: ASCORBIC ACID 500 MG TAB PO SCH (08:14)
[2020-09-06] MEDS: CITALOPRAM HYDROBROMIDE 20 MG TAB PO SCH (08:14)
[2020-09-06] MEDS: ENOXAPARIN 40 MG/0.4 ML SYRINGE SQ SCH (08:14)
[2020-09-06] MEDS: SODIUM CHLORIDE 0.9% 1,000 ML IV SCH ×3 (08:15→23:57)
[2020-09-06 11:03] LABS: Basophils % (A) 0 %; Eosinophils % (A) 0 %; HCT 34.6 % (34.0-46.0); HGB 11.5 gm/dL (11.4-16.0); Lymphocytes # (A) 0.4 k/uL (1.0-4.8); Lymphocytes % (A) 11 %; MCH 28.1 pg (25.0-35.0); MCHC 33.4 g/dL (31.0-37.0); MCV 84.3 fL (80.0-100.0); Mean Platelet Volume 7.2; Monocytes # (A) 0.2 k/uL (0-1.0); Monocytes % (A) 5 %; Neutrophils # (A) 3.4 k/uL (1.3-7.7); Neutrophils % (A) 82 %; Platelet Count 254 k/uL (150-450); RDW 12.7 % (11.5-15.5); WBC 4.1 k/uL (3.8-10.6)
[2020-09-06 11:13] LABS: African American GFR (CKD) >90 (>60 ml/min/1.73 sqM); Anion Gap 6 mmol/L; Blood Urea Nitrogen 10 mg/dL (7-17); Calcium 8.5 mg/dL (8.4-10.2); Carbon Dioxide 27 mmol/L (22-30); Chloride 103 mmol/L (98-107); Glucose 125 mg/dL (74-99); LDH 1515 U/L (313-618); Non-African American GFR(CKD) >90 (>60 ml/min/1.73 sqM); Sodium 136 mmol/L (137-145)
[2020-09-06] MEDS: ACETAMINOPHEN TAB 325 MG TAB PO PRN (12:25)
[2020-09-06] MEDS: amLODIPine 5 MG TAB PO SCH (14:40)
[2020-09-06 15:05] LABS: ABG PCO2 36 mmHg (35-45); ABG PH 7.46 (7.35-7.45); Allen Test Performed? Yes
[2020-09-06 15:06] LABS: ABG Base Excess 0.9 mmol/L; ABG HCO3 25 mmol/L (21-25); ABG PO2 44 mmHg (83-108); ABG TCO2 26 mmol/L (19-24)
[2020-09-06 16:28] LABS: Ferritin 337.5 ng/mL (10.0-291.0)
[2020-09-06] MEDS: LORazepam 2 MG/ML INJ IV PRN ×2 (18:19→23:33)
--- NOTE | 2020-09-06 18:57 | P.HPIM ---
History of Present Illness H&P Date: 09/06/20 Chief Complaint: Difficulty breathing/COVID positive Is a 65-year-old female states she's been exposed to Covid 19 odor from both her son and daughter who states she's had symptoms similar today for last 8 days which include nausea vomiting recently diarrhea rhinorrhea no overt shortness of breath she does have a cough also a fever and generalized weakness. He also decreased oral intake. She is here just because she is profoundly weak at this time. Not able to keep fluids down. Review of Systems REVIEW OF SYSTEMS: CONSTITUTIONAL: No fever, no malaise, no fatigue. HEENT: No recent visual problems or hearing problems. Denied any sore throat. CARDIOVASCULAR: No chest pain, orthopnea, PND, no palpitations, no syncope. PULMONARY: No shortness of breath, no cough, no hemoptysis. GASTROINTESTINAL: No diarrhea, no nausea, no vomiting, no abdominal pain. NEUROLOGICAL: No headaches, no weakness, no numbness. HEMATOLOGICAL: Denies any bleeding or petechiae. GENITOURINARY: Denies any burning micturition, frequency, or urgency. MUSCULOSKELETAL/RHEUMATOLOGICAL: Denies any joint pain, swelling, or any muscle pain. ENDOCRINE: Denies any polyuria or polydipsia. The rest of the 14-point review of systems is negative. Past Medical History Past Medical History: GERD/Reflux, Hypertension, Thyroid Disorder Additional Past Medical History / Comment(s): HEART murmur, IBS, hiatal hernia. raynauds History of Any Multi-Drug Resistant Organisms: None Reported Past Surgical History: Section, Hysterectomy, Orthopedic Surgery, Tonsillectomy, Uterine Ablation Additional Past Surgical History / Comment(s): RT CARPAL TUNNEL, 2 C-Sections Past Anesthesia/Blood Transfusion Reactions: Postoperative Nausea & Vomiting (PONV) Past Psychological History: No Psychological Hx Reported Smoking Status: Never smoker Past Alcohol Use History: None Reported Past Drug Use History: None Reported - Past Family History Father Family Medical History: Cancer Additional Family Medical History / Comment(s): Father has heart problems and has had prostate cancer. He is 78 yrs old. Mother Family Medical History: Cancer, Dementia Additional Family Medical History / Comment(s): Mother of dementia at age 78 yrs. Medications and Allergies Home Medications Medication Instructions Recorded Confirmed Type Levothyroxine Sodium [Synthroid] 75 mcg PO MOTUWETHFR 05/06/15 09/05/20 History Metoprolol Tartrate [Lopressor] 100 mg PO DAILY 05/06/15 09/05/20 History Montelukast [Singulair] 10 mg PO HS 05/06/15 09/05/20 History Rosuvastatin [Crestor] 10 mg PO HS 05/06/15 09/05/20 History lisinopriL [Prinivil] 5 mg PO HS 11/12/18 09/05/20 History metFORMIN HCL [Glucophage] 500 mg PO BID 11/12/18 09/05/20 History Aspirin EC [Ecotrin Low Dose] 81 mg PO HS 09/05/20 09/05/20 History Citalopram Hydrobromide [CeleXA] 40 mg PO DAILY 09/05/20 09/05/20 History Fexofenadine HCl [Shamika Allergy] 180 mg PO HS 09/05/20 09/05/20 History Levothyroxine Sodium [Synthroid] 37.5 mcg PO SA 09/05/20 09/05/20 History Melatonin 5 mg PO HS 09/05/20 09/05/20 History Multivitamins, Thera [Multivitamin 1 tab PO HS 09/05/20 09/05/20 History (formulary)] Omeprazole 20 mg PO BID 09/05/20 09/05/20 History amLODIPine [Norvasc] 5 mg PO DAILY@1400 09/05/20 09/05/20 History lisinopriL [Zestril] 10 mg PO DAILY 09/05/20 09/05/20 History Allergies Allergy/AdvReac Type Severity Reaction Status Date / Time Penicillins Allergy Rash/Hives Verified 09/05/20 20:18 Physical Exam Vitals: Vital Signs Temp Pulse Resp BP Pulse Ox 09/06/20 08:11 97.8 F 106 H 18 152/80 96 09/06/20 07:18 96 18 148/79 95 09/06/20 06:00 89 18 93 L 09/06/20 05:00 89 18 91 L 09/06/20 02:34 98.9 F 70 18 119/74 92 L 09/05/20 19:06 99.7 F H 76 18 117/71 93 L 09/05/20 18:15 101.1 F H 68 18 143/74 98 09/05/20 18:13 20 09/05/20 17:37 100.9 F H 84 24 130/72 84 L Intake and Output 09/05/20 09/06/20 09/06/20 22:59 06:59 14:59 Other: Weight 63.503 kg General appearance: alert, in no apparent distress Head exam: Present: atraumatic, normocephalic, normal inspection Eye exam: Present: normal appearance, PERRL, EOMI. Absent: scleral icterus, conjunctival injection, periorbital swelling ENT exam: Present: mucous membranes dry Neck exam: Present: normal inspection. Absent: tenderness, meningismus, lymphadenopathy Respiratory exam: Present: normal lung sounds bilaterally. Absent: respiratory distress, wheezes, rales, rhonchi, stridor Cardiovascular Exam: Present: regular rate, normal rhythm, normal heart sounds. Absent: systolic murmur, diastolic murmur, rubs, gallop, clicks GI/Abdominal exam: Present: soft, normal bowel sounds. Absent: distended, tenderness, guarding, rebound, rigid Extremities exam: Present: normal inspection, full ROM, normal capillary refill. Absent: tenderness, pedal edema, joint swelling, calf tenderness Back exam: Present: normal inspection Neurological exam: Present: alert, oriented X3, CN II-XII intact Psychiatric exam: Present: normal affect, normal mood Skin exam: Present: warm, dry, intact, normal color. Absent: rash Results CBC & Chem 7: 09/06/20 10:01 09/06/20 10:01 Labs: Abnormal Lab Results - Last 24 Hours (Table) 09/05/20 09/05/20 09/05/20 Range/Units 18:13 18:13 18:13 WBC 3.5 L (3.8-10.6) k/uL Lymphocytes # 0.9 L (1.0-4.8) k/uL D-Dimer 0.61 H (<0.60) mg/L FEU Sodium 131 L (137-145) mmol/L Glucose 110 H (74-99) mg/dL AST 51 H (14-36) U/L Total Protein 6.2 L (6.3-8.2) g/dL Albumin 3.4 L (3.5-5.0) g/dL Coronavirus (PCR) (Not Detectd) 09/05/20 Range/Units 18:13 WBC (3.8-10.6) k/uL Lymphocytes # (1.0-4.8) k/uL D-Dimer (<0.60) mg/L FEU Sodium (137-145) mmol/L Glucose (74-99) mg/dL AST (14-36) U/L Total Protein (6.3-8.2) g/dL Albumin (3.5-5.0) g/dL Coronavirus (PCR) Detected A (Not Detectd) Assessment and Plan Assessment: 1. Acute hypoxic respiratory failure - Patient was saturating adequately initially on nasal cannula; continue to decline while in ED; we will place patient on BiPAP and titrate oxygen up keeping SpO2 greater than 90% - IV dexamethasone 6 mg daily; zinc sulfate, vitamin C and vitamin D and subcu Lovenox - Pulmonary is consulted for further recommendations 2. Interstitial pneumonia secondary to COVID; with hypoxia; pulmonary consulted for further recommendations 3. Elevated d-dimer; CT of chest is negative for PE 4. Elevated liver enzymes; possibly related to Covid 19 infection 5. Hypothyroidism; levothyroxine 75 MCG daily 6. Hypertension; continue with home dose of metoprolol 100 mg daily, lisinopril 5 mg daily, Norvasc 10 mg daily 6. Hyperlipidemia; continue with home statin therapy 8. Asthma; not in exacerbation; continue singular 10 mg daily at home inhaler therapy 9. Diabetes mellitus type 2; continue with home dose of metformin; monitor Accu-Cheks every 6 hours as with insulin sliding scale DVT prophylaxis; SCDs/subcu Lovenox CODE STATUS; full code
[2020-09-06] MEDS: ATORVASTATIN 20 MG TAB PO SCH (20:53)
[2020-09-06] MEDS: ASPIRIN 81 MG PO SCH (20:53)
[2020-09-06] MEDS: MULTIVITAMINS, THERA 1 EACH TAB PO SCH (20:53)
[2020-09-06] MEDS: MELATONIN 5 MG TABLET PO SCH (20:53)
[2020-09-06] MEDS: MONTELUKAST 10 MG TAB PO SCH (20:53)
[2020-09-06] MEDS: LORATADINE 10 MG TAB PO SCH (20:53)
[2020-09-07 02:45] LABS: Glucose,Whole Blood 128 mg/dL (75-99)
[2020-09-07 03:10] LABS: Appearance,Urine Clear (Clear); Bilirubin,Urine Negative (Negative); Blood,Urine Negative (Negative); Color,Urine Yellow; Glucose,Urine (UA) Negative (Negative); Ketones,Urine Negative (Negative); Leukocyte Esterase,Urine Negative (Negative); Nitrite,Urine Negative (Negative); Protein,Urine Trace (Negative); Specific Gravity,Urine 1.006 (1.001-1.035); Urobilinogen,Urine <2.0 mg/dL (<2.0)
[2020-09-07] MEDS: LORazepam 2 MG/ML INJ IV PRN (04:33)
[2020-09-07] MEDS ORDERED: propofoL 100 ML IV ONE (04:59)
[2020-09-07 05:25] LABS: Basophils % (A) 0 %; Eosinophils % (A) 0 %; HCT 34.8 % (34.0-46.0); HGB 11.7 gm/dL (11.4-16.0); Lymphocytes # (A) 0.7 k/uL (1.0-4.8); Lymphocytes % (A) 9 %; MCH 28.6 pg (25.0-35.0); MCHC 33.7 g/dL (31.0-37.0); MCV 84.8 fL (80.0-100.0); Mean Platelet Volume 7.3; Monocytes # (A) 0.3 k/uL (0-1.0); Monocytes % (A) 4 %; Neutrophils % (A) 86 %; Platelet Count 307 k/uL (150-450); RDW 12.7 % (11.5-15.5)
--- NOTE | 2020-09-07 05:35 | XR ---
EXAM: XR Chest, 1 View CLINICAL HISTORY: ITS.REASON XR Reason: Tube placement TECHNIQUE: Frontal view of the chest. COMPARISON: 09/16/2019 IMPRESSION: ET tube terminates 4 cm from the jason. NG tube side-port terminates above the diaphragm. Recommend advancing 8- 10 cm. Increased bilateral patchy opacities. Trace right pleural effusion. Cardiomegaly.
[2020-09-07] MEDS ORDERED: CISATRACURIUM 2 MG/ML 5 ML VIAL IV ONE (05:39)
[2020-09-07 05:50] LABS: African American GFR (CKD) >90 (>60 ml/min/1.73 sqM); Anion Gap 6 mmol/L; Blood Urea Nitrogen 8 mg/dL (7-17); Carbon Dioxide 27 mmol/L (22-30); Chloride 104 mmol/L (98-107); Glucose 125 mg/dL (74-99); Non-African American GFR(CKD) >90 (>60 ml/min/1.73 sqM); Potassium 3.7 mmol/L (3.5-5.1); Sodium 137 mmol/L (137-145)
[2020-09-07] MEDS: CISATRACURIUM 200 MG in SODIUM CHLORIDE 0.9% 180 ML IV SCH (05:51)
[2020-09-07] MEDS ORDERED: fentaNYL (PF) 1,000 MCG in SODIUM CHLORIDE 0.9% 80 ML IV SCH ×2 (06:00→06:30)
[2020-09-07 06:23] LABS: ABG PCO2 36 mmHg (35-45); ABG PH 7.44 (7.35-7.45); Allen Test Performed? Yes
[2020-09-07 06:24] LABS: ABG Base Excess -0.1 mmol/L; ABG HCO3 24 mmol/L (21-25); ABG PO2 50 mmHg (83-108); ABG TCO2 25 mmol/L (19-24)
[2020-09-07] MEDS ORDERED: Potassium Replacement Protocol 1 EACH MISC MISCELLANE PRN (06:32)
[2020-09-07] MEDS: SODIUM CHLORIDE 0.9% 1,000 ML IV SCH ×3 (06:51→20:17)
[2020-09-07] MEDS: fentaNYL (PF) 1,000 MCG in SODIUM CHLORIDE 0.9% 80 ML IV SCH ×2 (06:54→19:37)
[2020-09-07] MEDS ORDERED: POTASSIUM BICARBONATE/CIT AC 20 MEQ TABLET.EFF NG-TUBE SCH (07:00)
[2020-09-07] MEDS: CITALOPRAM HYDROBROMIDE 20 MG TAB PO SCH (08:36)
[2020-09-07] MEDS: CHLORHEXIDINE GLUCONATE 15 ML CUP MUCOUS MEM SCH ×2 (08:36→20:13)
[2020-09-07] MEDS: CHOLECALCIFEROL 25 MCG (1000 IU) TABLET PO SCH (08:37)
[2020-09-07] MEDS: LEVOTHYROXINE 75 MCG TAB PO SCH (08:37)
[2020-09-07] MEDS: ASCORBIC ACID 500 MG TAB PO SCH (08:37)
[2020-09-07] MEDS: metFORMIN 500 MG TAB PO SCH ×2 (08:37→20:12)
[2020-09-07] MEDS: PANTOPRAZOLE 40 MG TABLET PO SCH ×2 (08:38→20:13)
[2020-09-07] MEDS: ZINC SULFATE 220 MG CAP PO SCH (08:38)
[2020-09-07] MEDS: ENOXAPARIN 40 MG/0.4 ML SYRINGE SQ SCH ×2 (08:38→21:55)
[2020-09-07] MEDS: ALBUTEROL HFA INHALER INHALATION SCH ×4 (08:39→19:30)
[2020-09-07 08:43] LABS: C Reactive Protein 130.8 mg/L (<10.0)
[2020-09-07] MEDS ORDERED: SODIUM CHLORIDE 0.9% IV ONE (10:15)
[2020-09-07] MEDS ORDERED: TOCILIZUMAB IV ONE (10:15)
[2020-09-07] MEDS: methylPREDNISolone SOD SUCCI 125 MG/2 ML VIAL IV SCH ×3 (12:19→23:55)
[2020-09-07 12:28] LABS: ABG Base Excess -0.4 mmol/L; ABG HCO3 24 mmol/L (21-25); ABG Oxygen Saturation 93.2 % (94-97); ABG PCO2 39 mmHg (35-45); ABG PO2 65 mmHg (83-108); ABG TCO2 26 mmol/L (19-24)
[2020-09-07 12:29] LABS: Allen Test Performed? no
[2020-09-07 13:15] LABS: Glucose,Whole Blood 120 mg/dL (75-99)
--- NOTE | 2020-09-07 13:15 | P.CNPUL ---
History of Present Illness Consult date: 09/07/20 Requesting physician: Cheo Olivia Reason for consult: dyspnea Chief complaint: Nausea, vomiting, diarrhea, cough, generalized weakness History of present illness: 65-year-old white female patient of Dr. Haq with past medical history of hypertension, hypothyroidism, IBS, hiatal hernia, renal disorder, who presented to the emergency department on 09/05/2020 with symptoms of nausea, vomiting, diarrhea, she reported some cough, fever and generalized weakness, but no overt shortness of breath. Patient had exposure to COVID 19 from her son and daughter. Patient had decreased oral intake, she came in with profound generalized weakness and not being able to keep fluids down. Chest x-ray showed bilateral patchy airspace pneumonia, COVID 19 PCR was positive. Patient was lymphopenic with lymphocytic 0.9, white blood cell count is 3.5, hemoglobin is 12.5, d-dimer 0.61, troponin was less than 0.012, pro calcitonin level was 0.07. LDH was 1550, CRP is 130.8, ferritin level is 337.5. Presentation patient was severely hypoxic, with O2 saturations in the low 80s on 100% FiO2. Blood gas was obtained showing pO2 of 44, pCO2 of 36, pH of 7.46, patient was intubated and placed on mechanical ventilator. She is currently sedated and paralyzed, and on assist control mode of ventilation with a rate of 28, tacrolimus 400, FiO2 100%, and PEEP of 14. This morning blood gases showed pO2 of 50, pCO2 36, and pH of 7.44. Currently patient sedated and paralyzed on [facility] ventilator. 0.9 at 130 in the per hour, and Nimbex is at 2 mics per kilo per minute, Diprivan is a 50 mics per kilo per minute, and fentanyl drip is currently is 1 mcg/kg/m. Patient has been started on IV steroids 60 mg every 6 hours of Solu-Medrol, she is on Lovenox 40 mg daily. She'll be given a dose of convalescent plasma and she is awaiting a dose of Tocili. Follow-up chest x-ray today shows increased bilateral patchy opacities, and trace right pleural effusion. CTA chest was completed showing no evidence of pulmonary embolism. Review of Systems All systems: negative Constitutional: Denies chills, Denies fever Eyes: denies blurred vision, denies pain Ears, nose, mouth and throat: Denies headache, Denies sore throat Cardiovascular: Denies chest pain, Denies shortness of breath Respiratory: Reports dyspnea, Denies cough Gastrointestinal: Reports diarrhea, Reports nausea, Reports vomiting, Denies abdominal pain Genitourinary: Denies dysuria, Denies hematuria Musculoskeletal: Denies myalgias Integumentary: Denies pruritus, Denies rash Neurological: Denies numbness, Denies weakness Psychiatric: Denies anxiety, Denies depression Endocrine: Denies fatigue, Denies weight change Past Medical History Past Medical History: GERD/Reflux, Hypertension, Thyroid Disorder Additional Past Medical History / Comment(s): HEART murmur, IBS, hiatal hernia. raynauds History of Any Multi-Drug Resistant Organisms: None Reported Past Surgical History: Section, Hysterectomy, Orthopedic Surgery, Tonsillectomy, Uterine Ablation Additional Past Surgical History / Comment(s): RT CARPAL TUNNEL, 2 C-Sections Past Anesthesia/Blood Transfusion Reactions: Postoperative Nausea & Vomiting (PONV) Past Psychological History: No Psychological Hx Reported Smoking Status: Never smoker Past Alcohol Use History: None Reported Past Drug Use History: None Reported - Past Family History Father Family Medical History: Cancer Additional Family Medical History / Comment(s): Father has heart problems and has had prostate cancer. He is 78 yrs old. Mother Family Medical History: Cancer, Dementia Additional Family Medical History / Comment(s): Mother of dementia at age 78 yrs. Medications and Allergies Home Medications Medication Instructions Recorded Confirmed Type Levothyroxine Sodium [Synthroid] 75 mcg PO MOTUWETHFR 05/06/15 09/05/20 History Metoprolol Tartrate [Lopressor] 100 mg PO DAILY 05/06/15 09/05/20 History Montelukast [Singulair] 10 mg PO HS 05/06/15 09/05/20 History Rosuvastatin [Crestor] 10 mg PO HS 05/06/15 09/05/20 History lisinopriL [Prinivil] 5 mg PO HS 11/12/18 09/05/20 History metFORMIN HCL [Glucophage] 500 mg PO BID 11/12/18 09/05/20 History Aspirin EC [Ecotrin Low Dose] 81 mg PO HS 09/05/20 09/05/20 History Citalopram Hydrobromide [CeleXA] 40 mg PO DAILY 09/05/20 09/05/20 History Fexofenadine HCl [Shamika Allergy] 180 mg PO HS 09/05/20 09/05/20 History Levothyroxine Sodium [Synthroid] 37.5 mcg PO 09/05/20 09/05/20 History Melatonin 5 mg PO HS 09/05/20 09/05/20 History Multivitamins, Thera [Multivitamin 1 tab PO HS 09/05/20 09/05/20 History (formulary)] Omeprazole 20 mg PO BID 09/05/20 09/05/20 History amLODIPine [Norvasc] 5 mg PO DAILY@1400 09/05/20 09/05/20 History lisinopriL [Zestril] 10 mg PO DAILY 09/05/20 09/05/20 History Allergies Allergy/AdvReac Type Severity Reaction Status Date / Time Penicillins Allergy Rash/Hives Verified 09/05/20 20:18 Physical Exam Vitals: Vital Signs Temp Pulse Pulse Resp BP BP Pulse Ox 09/07/20 10:00 115 H 28 H 88 L 09/07/20 09:00 111 H 28 H 86 L 09/07/20 08:00 105 H 30 H 85/49 89 L 09/07/20 07:00 104 H 28 H 89 L 09/07/20 06:00 118 H 28 H 127/82 83 L 09/07/20 05:00 126 H 133 H 49 H 167/87 83 L 09/07/20 04:00 133 H 50 H 172/90 87 L 09/07/20 03:00 129 H 48 H 176/106 87 L 09/07/20 02:10 133 H 52 H 149/72 82 L 09/07/20 00:11 97.9 F 106 H 35 H 135/72 98 09/06/20 21:00 98.3 F 102 H 30 H 144/83 92 L 09/06/20 18:02 92 18 175/93 95 09/06/20 16:34 87 18 131/81 98 09/06/20 14:58 94 L 09/06/20 14:38 97.8 F 83 18 130/74 85 L 09/06/20 14:15 88 L 09/06/20 13:44 90 L 09/06/20 13:16 90 L Intake and Output 09/06/20 09/07/20 09/07/20 22:59 06:59 14:59 Intake Total 250 527.367 300.334 Output Total 1025 80 Balance 250 -497.633 220.334 Intake: IV 520 260 Sodium Chloride 0.9% 1, 520 260 000 ml @ 130 mls/hr IV . Q7H42M [facility] Rx#:[id number] Intake, IV Titration 7.367 40.334 Amount Cisatracurium 200 mg In 11.684 Sodium Chloride 0.9% 180 ml @ 1 MCG/KG/MIN 3.81 mls/hr IV .Q24H [facility] Rx#: [id number] fentaNYL (PF) 1,000 mcg 7.567 In Sodium Chloride 0.9% 80 ml @ Per Protocol IV . Q0M [facility] Rx#:[id number] propofoL 1,000 mg In 7.367 21.083 Empty Bag 1 bag @ Titrate IV .Q0M [facility] Rx#: [id number] Oral 250 Output: Urine 1025 80 Other: Voiding Method Bedpan Indwelling Catheter # Voids 1 Weight 63.503 kg ABP, PAP, CO, CI - Last 8 Hours Arterial Blood Pressure 123/63 Arterial Blood Pressure 134/82 Arterial Blood Pressure 118/54 GENERAL EXAM: Sitting, intubated, 65-year-old white female, on assist-control mode of ventilation with FiO2 100%, comfortable in no apparent distress. HEAD: Normocephalic/atraumatic. EYES: Normal reaction of pupils, equal size. Conjunctiva pink, sclera white. NOSE: Clear with pink turbinates. THROAT: No erythema or exudates. NECK: No masses, no JVD, no thyroid enlargement, no adenopathy. CHEST: No chest wall deformity. Symmetrical expansion. LUNGS: Equal air entry with no crackles, wheeze, rhonchi or dullness. CVS: Regular rate and rhythm, normal S1 and S2, no gallops, no murmurs, no rubs ABDOMEN: Soft, nontender. No hepatosplenomegaly, normal bowel sounds, no guarding or rigidity. EXTREMITIES: No clubbing, no edema, no cyanosis, 2+ pulses and upper and lower extremities. MUSCULOSKELETAL: Muscle strength and tone normal. SPINE: No scoliosis or deformity SKIN: No rashes CENTRAL NERVOUS SYSTEM: Sedated, intubated No focal deficits, tone is normal in all 4 extremities. Results - Laboratory Findings CBC and BMP: 09/07/20 04:23 09/07/20 04:23 ABG ABG pH 7.40 (7.35-7.45) 09/07/20 12:26 ABG pCO2 39 mmHg (35-45) 09/07/20 12:26 ABG pO2 65 mmHg (83-108) L 09/07/20 12:26 ABG O2 Saturation 93.2 % (94-97) L 09/07/20 12:26 PT/INR, D-dimer PT 9.9 sec (9.0-12.0) 09/05/20 18:13 INR 0.9 (<1.2) 09/05/20 18:13 D-Dimer 1.12 mg/L FEU (<0.60) H 09/07/20 04:23 Abnormal lab findings: Abnormal Labs 09/05/20 09/05/20 09/05/20 18:13 18:13 18:13 WBC 3.5 L Lymphocytes # 0.9 L D-Dimer 0.61 H ABG pH ABG pO2 ABG Total CO2 ABG O2 Saturation Sodium 131 L Glucose 110 H POC Glucose (mg/dL) Calcium Ferritin AST 51 H Lactate Dehydrogenase C-Reactive Protein Total Protein 6.2 L Albumin 3.4 L Urine Protein Coronavirus (PCR) 09/05/20 09/06/20 09/06/20 18:13 10:01 10:01 WBC Lymphocytes # 0.4 L D-Dimer ABG pH ABG pO2 ABG Total CO2 ABG O2 Saturation Sodium 136 L Glucose 125 H POC Glucose (mg/dL) Calcium Ferritin 337.5 H AST Lactate Dehydrogenase 1515 H C-Reactive Protein Total Protein Albumin Urine Protein Coronavirus (PCR) Detected A 09/06/20 09/07/20 09/07/20 14:31 02:30 02:43 WBC Lymphocytes # D-Dimer ABG pH 7.46 H ABG pO2 44 L* ABG Total CO2 26 H ABG O2 Saturation 82.0 L Sodium Glucose POC Glucose (mg/dL) 128 H Calcium Ferritin AST Lactate Dehydrogenase C-Reactive Protein Total Protein Albumin Urine Protein Trace H Coronavirus (PCR) 09/07/20 09/07/20 09/07/20 04:23 04:23 04:23 WBC Lymphocytes # 0.7 L D-Dimer 1.12 H ABG pH ABG pO2 ABG Total CO2 ABG O2 Saturation Sodium Glucose 125 H POC Glucose (mg/dL) Calcium 8.0 L Ferritin AST Lactate Dehydrogenase C-Reactive Protein Total Protein Albumin Urine Protein Coronavirus (PCR) 09/07/20 09/07/20 09/07/20 04:23 06:15 12:26 WBC Lymphocytes # D-Dimer ABG pH ABG pO2 50 L* 65 L ABG Total CO2 25 H 26 H ABG O2 Saturation 87.0 L 93.2 L Sodium Glucose POC Glucose (mg/dL) Calcium Ferritin AST Lactate Dehydrogenase 1952 H C-Reactive Protein 130.8 H Total Protein Albumin Urine Protein Coronavirus (PCR) - Diagnostic Findings Chest x-ray: report reviewed, image reviewed CT scan - chest: report reviewed, image reviewed Additional studies: EKG reviewed Assessment and Plan Plan: Assessment: #1. Acute hypoxic respiratory failure related to acute COVID 19 pneumonia, patient was admitted to the hospital on 09/05/2020, transfer to the intensive care unit on 09/07/2020 and intubated on 09/07/2020, will receive a dose of Actemra 1, and, last plasma 1 today #2. Increased d-dimer related to the above with no CT evidence of pulmonary embolism #3. Increased inflammatory markers #4. Hypertension #5. Hypothyroidism #6. Never smoker #7. IBS #8. Raynaud's Plan: We will increase the PEEP up to 18 and We'll obtain a follow-up blood gas, keep the patient sedated and paralyzed, no weaning trials today. We'll give the patient a dose of October at 8 mg/kg of body weight, and convalescent plasma 1, continue with current dose of IV steroids Solu-Medrol 60 mg every 6 hours, continue prophylactic dose Lovenox 40 mg daily, continue vitamins, follow-up chest x-ray and labs tomorrow, follow up inflammatory markers and daily d-dimer. Start nutritional support today. Continue to closely follow clinical course and make further recommendations. I performed a history & physical examination of the patient and discussed their management with my nurse practitioner, Danyell Larsen. I reviewed the nurse practitioner's note and agree with the documented findings and plan of care. Lung sounds are positive for diminished breath sounds. The findings and the impression was discussed with the patient. I attest to the documentation by the nurse practitioner. Time with Patient: Greater than 30
[2020-09-07] MEDS ORDERED: SODIUM CHLORIDE 0.9% 1,000 ML IV ONE (14:48)
[2020-09-07] MEDS: lisinopriL 5 MG TAB PO SCH ×2 (14:49→19:38)
[2020-09-07] MEDS: METOPROLOL TARTRATE 50 MG TAB PO SCH (14:49)
[2020-09-07] MEDS: amLODIPine 5 MG TAB PO SCH (14:56)
[2020-09-07 15:28] LABS: ALT 19 U/L (4-34); AST 50 U/L (14-36); African American GFR (CKD) >90 (>60 ml/min/1.73 sqM); Albumin 2.6 g/dL (3.5-5.0); Alkaline Phosphatase 90 U/L (38-126); Anion Gap 8 mmol/L; Blood Urea Nitrogen 11 mg/dL (7-17); Calcium 7.3 mg/dL (8.4-10.2); Carbon Dioxide 23 mmol/L (22-30); Chloride 109 mmol/L (98-107); Glucose 129 mg/dL (74-99); Non-African American GFR(CKD) 88 (>60 ml/min/1.73 sqM); Potassium 3.8 mmol/L (3.5-5.1); Sodium 140 mmol/L (137-145); Total Bilirubin 0.4 mg/dL (0.2-1.3); Total Protein 4.9 g/dL (6.3-8.2)
[2020-09-07 15:37] LABS: Basophils % (A) 0 %; Eosinophils % (A) 1 %; HCT 26.4 % (34.0-46.0); Lymphocytes # (A) 0.4 k/uL (1.0-4.8); Lymphocytes % (A) 7 %; MCH 29.6 pg (25.0-35.0); MCHC 34.8 g/dL (31.0-37.0); Mean Platelet Volume 7.7; Monocytes # (A) 0.2 k/uL (0-1.0); Monocytes % (A) 4 %; Neutrophils # (A) 4.9 k/uL (1.3-7.7); Neutrophils % (A) 87 %; Platelet Count 250 k/uL (150-450); RBC 3.11 m/uL (3.80-5.40); RDW 12.7 % (11.5-15.5); WBC 5.7 k/uL (3.8-10.6)
[2020-09-07 15:40] LABS: HGB 9.2 gm/dL (11.4-16.0)
[2020-09-07 17:33] LABS: Glucose,Whole Blood 177 mg/dL (75-99)
[2020-09-07 17:51] LABS: Ferritin 435.5 ng/mL (10.0-291.0)
[2020-09-07] MEDS: MELATONIN 5 MG TABLET PO SCH (19:39)
[2020-09-07] MEDS ORDERED: ARTIFICIAL TEARS-HYPROMELLOSE DROPS 15 ML BTL BOTH EYES PRN (20:04)
[2020-09-07] MEDS: MULTIVITAMINS, THERA 1 EACH TAB PO SCH (20:12)
[2020-09-07] MEDS: MONTELUKAST 10 MG TAB PO SCH (20:13)
[2020-09-07] MEDS: ATORVASTATIN 20 MG TAB PO SCH (20:13)
[2020-09-07] MEDS: ASPIRIN 81 MG PO SCH (20:13)
[2020-09-07] MEDS: LORATADINE 10 MG TAB PO SCH (20:13)
--- NOTE | 2020-09-07 21:10 | P.PN ---
Progress Note - Text Progress Note Date: 09/07/20 Chief Complaint: Difficulty breathing/COVID positive History of presenting complaint 65-year-old female , whose PCP is Dr. Haq, states she's been exposed to Covid 19 from both her son and daughter who states she's had symptoms similar today for last 8 days which include nausea vomiting recently diarrhea rhinorrhea no overt shortness of breath she does have a cough also a fever and generalized weakness. decreased oral intake. She is here just because she is profoundly weak at this time. Not able to keep fluids down. Admitted with COVID 19 pneumonia. Acute hypoxic respiratory failure. Patient was given convalescent plasma. Dexamethasone, Today-in the ICU: Been into respiratory distress. Was intubated. Given a dose of ACTEMRA. Convalescent plasma. Drips include: Propofol, fentanyl, Nimbex, patient has been febrile. Hypotensive given fluid bolus. Telemetry shows sinus rhythm. Ventilator: FiO2 90% and a PEEP of 18. Sedated Review of systems: Patient intubated Active Medications Acetaminophen (Acetaminophen Tab 325 Mg Tab) 650 mg PO Q6HR PRN PRN Reason: Mild Pain or Fever > 100.5 Last Admin: 09/06/20 12:25 Dose: 650 mg Documented by: Albuterol Sulfate (Albuterol Hfa Inhaler) 2 puff INHALATION RT-QID [facility] Last Admin: 09/07/20 19:30 Dose: 2 puff Documented by: Albuterol Sulfate (Albuterol Hfa Inhaler) 2 puff INHALATION RT-QID PRN PRN Reason: Shortness Of Breath Or Wheezing Amlodipine Besylate (Amlodipine 5 Mg Tab) 5 mg PO DAILY@1400 [facility] Last Admin: 09/07/20 14:56 Dose: Not Given Documented by: Artificial Tears (Artificial Tears-Hypromellose Drops 15 Ml Btl) 1 drops BOTH EYES Q4H [facility] Ascorbic Acid (Ascorbic Acid 500 Mg Tab) 1,000 mg PO DAILY [facility] Last Admin: 09/07/20 08:37 Dose: 1,000 mg Documented by: Aspirin (Aspirin 81 Mg) 81 mg PO [facility] Last Admin: 09/07/20 20:13 Dose: 81 mg Documented by: Atorvastatin Calcium (Atorvastatin 20 Mg Tab) 20 mg PO [facility] Last Admin: 09/07/20 20:13 Dose: 20 mg Documented by: Chlorhexidine Gluconate (Chlorhexidine Gluconate 15 Ml Cup) 15 ml MUCOUS MEM BID [facility] Last Admin: 09/07/20 20:13 Dose: 15 ml Documented by: Cholecalciferol (Cholecalciferol 25 Mcg (1000 Iu) Tablet) 125 mcg PO DAILY [facility] Last Admin: 09/07/20 08:37 Dose: 125 mcg Documented by: Citalopram Hydrobromide (Citalopram Hydrobromide 20 Mg Tab) 40 mg PO DAILY [facility] Last Admin: 09/07/20 08:36 Dose: 40 mg Documented by: Enoxaparin Sodium (Enoxaparin 40 Mg/0.4 Ml Syringe) 40 mg SQ DAILY [facility] Last Admin: 09/07/20 08:38 Dose: 40 mg Documented by: Sodium Chloride (Saline 0.9%) 1,000 mls @ 130 mls/hr IV .Q7H42M [facility] Last Admin: 09/07/20 20:17 Dose: 130 mls/hr Documented by: Propofol 1,000 mg/ IV Solution 100 mls @ 0 mls/hr IV .Q0M [facility]; Protocol Last Titration: 09/07/20 07:23 Dose: 50 mcg/kg/min, 19.051 mls/hr Documented by: Cisatracurium Besylate 200 mg/ (Sodium Chloride) 200 mls @ 3.81 mls/hr IV .Q24H [facility]; Protocol Last Titration: 09/07/20 08:55 Dose: 2 mcg/kg/min, 7.62 mls/hr Documented by: Fentanyl Citrate 1,000 mcg/ (Sodium Chloride) 100 mls @ 0 mls/hr IV .Q0M [facility]; Protocol Last Admin: 09/07/20 19:37 Dose: 1 mcg/kg/hr, 6.35 mls/hr Documented by: Insulin Aspart (Insulin Aspart (Novolog) 100 Unit/Ml Vial) 0 unit SQ Q6H [facility]; Protocol Levothyroxine Sodium (Levothyroxine 75 Mcg Tab) 75 mcg PO MoTuWeThFr@0630 [facility] Last Admin: 09/07/20 08:37 Dose: 75 mcg Documented by: Levothyroxine Sodium (Levothyroxine 75 Mcg Tab) 37.5 mcg PO SA [facility] Last Admin: 09/05/20 22:56 Dose: 37.5 mcg Documented by: Lisinopril (Lisinopril 5 Mg Tab) 10 mg PO DAILY [facility] Last Admin: 09/07/20 14:49 Dose: Not Given Documented by: Lisinopril (Lisinopril 5 Mg Tab) 5 mg PO [facility] Last Admin: 09/07/20 19:38 Dose: Not Given Documented by: Loratadine (Loratadine 10 Mg Tab) 10 mg PO [facility] Last Admin: 09/07/20 20:13 Dose: 10 mg Documented by: Melatonin (Melatonin 5 Mg Tablet) 5 mg PO [facility] Last Admin: 09/07/20 19:39 Dose: Not Given Documented by: Metformin HCl (Metformin 500 Mg Tab) 500 mg PO BID [facility] Last Admin: 09/07/20 20:12 Dose: 500 mg Documented by: Methylprednisolone Sodium Succinate (Methylprednisolone Sod Succi 125 Mg/2 Ml Vial) 60 mg IV Q6HR [facility] Last Admin: 09/07/20 17:30 Dose: 60 mg Documented by: Metoprolol Tartrate (Metoprolol Tartrate 50 Mg Tab) 100 mg PO DAILY [facility] Last Admin: 09/07/20 14:49 Dose: Not Given Documented by: Miscellaneous Information (Potassium Replacement Protocol 1 Each Misc) 1 each MISCELLANE DAILY PRN; Protocol PRN Reason: Per Protocol Montelukast Sodium (Montelukast 10 Mg Tab) 10 mg PO [facility] Last Admin: 09/07/20 20:13 Dose: 10 mg Documented by: Multivitamins (Multivitamins, Thera 1 Each Tab) 1 each PO [facility] Last Admin: 09/07/20 20:12 Dose: 1 each Documented by: Naloxone HCl (Naloxone 0.4 Mg/Ml 1 Ml Vial) 0.2 mg IV Q2M PRN PRN Reason: Opioid Reversal Pantoprazole Sodium (Pantoprazole 40 Mg Tablet) 40 mg PO BID [facility] Last Admin: 09/07/20 20:13 Dose: 40 mg Documented by: Zinc Sulfate (Zinc Sulfate 220 Mg Cap) 220 mg PO DAILY [facility] Last Admin: 09/07/20 08:38 Dose: 220 mg Documented by: On examination: VITAL SIGNS: [101.8, 90, 28, 81/40, 96% on 100% FiO2] GENERAL APPEARANCE: BMI 28.3, laying in bed, intubated PSYCHIATRY: Patient intubated sedated. Unable to assess Rest of exam as per pulmonary nursing INVESTIGATIONS, reviewed in the clinical context: September 07: WBC 5.7 hemoglobin 9.2 platelets 250 potassium 3.8 creatinine 0.73 troponin I 0.084 albumin 2.6 Chest x-ray film personally reviewed by me-[September 07: Bilateral infiltrates, confluent more so in the lower zones and metolazone EKG tracing personally reviewed by me-normal sinus rhythm. Nonspecific changes CT [place] chest: Extensive bilateral infiltrates with adenopathy. No PE Admission labs: Troponin I less than 0.012 Assessment and plan Acute hypoxic respiratory failure-worsening - Patient was saturating adequately initially on nasal cannula; continue to decline while in ED; we will place patient on BiPAP and titrate oxygen up keeping SpO2 greater than 90% Patient intubated today on September 07 Interstitial pneumonia secondary to COVID-19: Worsening -Receiving Lovenox, dexamethasone, vitamin C vitamin D, Pepcid, zinc. Received ACTEMRA and convalescent plasma Hypothyroidism; - levothyroxine 75 MCG daily Essential Hypertension; - continue with home dose of metoprolol 100 mg daily, lisinopril 5 mg daily, Norvasc 10 mg daily Hyperlipidemia; -continue with home statin therapy Asthma; not in exacerbation; -continue singular 10 mg daily at home inhaler therapy GERD: - Continue with PPI Irritable bowel syndrome: -Follow clinically Raynauds phenomenon. - Follow clinically Diabetes mellitus type 2; -hold metformin. Follow Accu-Cheks. Normocytic anemia. -Follow H&H Acute hypoalbuminemia: Acute phase reactant CODE STATUS; full code Patient remains rather critically ill. In the ICU. Intubated. Follow with spiral tube winder helper
[2020-09-07 23:28] LABS: Glucose,Whole Blood 177 mg/dL (75-99)
[2020-09-07] MEDS: INSULIN ASPART (NovoLOG) 100 UNIT/ML VIAL SQ SCH (23:55)
[2020-09-07] MEDS: ARTIFICIAL TEARS-HYPROMELLOSE DROPS 15 ML BTL BOTH EYES SCH (23:55)
[2020-09-08] MEDS: ARTIFICIAL TEARS-HYPROMELLOSE DROPS 15 ML BTL BOTH EYES SCH ×5 (04:06→20:01)
[2020-09-08] MEDS: SODIUM CHLORIDE 0.9% 1,000 ML IV SCH ×3 (04:06→17:44)
[2020-09-08 04:37] LABS: Basophils % (A) 0 %; Eosinophils % (A) 0 %; HCT 25.4 % (34.0-46.0); HGB 8.8 gm/dL (11.4-16.0); Lymphocytes # (A) 0.8 k/uL (1.0-4.8); Lymphocytes % (A) 15 %; MCH 29.3 pg (25.0-35.0); MCHC 34.5 g/dL (31.0-37.0); MCV 84.8 fL (80.0-100.0); Mean Platelet Volume 7.6; Monocytes # (A) 0.2 k/uL (0-1.0); Monocytes % (A) 3 %; Neutrophils # (A) 4.4 k/uL (1.3-7.7); Neutrophils % (A) 80 %; Platelet Count 237 k/uL (150-450); RDW 13.1 % (11.5-15.5); WBC 5.4 k/uL (3.8-10.6)
[2020-09-08 05:00] LABS: ALT 19 U/L (4-34); AST 48 U/L (14-36); African American GFR (CKD) >90 (>60 ml/min/1.73 sqM); Albumin 2.3 g/dL (3.5-5.0); Alkaline Phosphatase 80 U/L (38-126); Anion Gap 6 mmol/L; Blood Urea Nitrogen 13 mg/dL (7-17); Calcium 7.1 mg/dL (8.4-10.2); Carbon Dioxide 19 mmol/L (22-30); Chloride 114 mmol/L (98-107); Glucose 144 mg/dL (74-99); Non-African American GFR(CKD) >90 (>60 ml/min/1.73 sqM); Potassium 3.3 mmol/L (3.5-5.1); Sodium 139 mmol/L (137-145); Total Bilirubin 0.3 mg/dL (0.2-1.3); Total Protein 4.6 g/dL (6.3-8.2)
[2020-09-08] MEDS: CISATRACURIUM 200 MG in SODIUM CHLORIDE 0.9% 180 ML IV SCH (05:10)
[2020-09-08 05:36] LABS: ABG Base Excess -5.7 mmol/L; ABG HCO3 19 mmol/L (21-25); ABG Oxygen Saturation 91.1 % (94-97); ABG PCO2 33 mmHg (35-45); ABG PH 7.38 (7.35-7.45); ABG PO2 63 mmHg (83-108); ABG TCO2 20 mmol/L (19-24); Allen Test Performed? Yes
[2020-09-08] MEDS: LEVOTHYROXINE 75 MCG TAB PO SCH (05:49)
[2020-09-08] MEDS: POTASSIUM BICARBONATE/CIT AC 20 MEQ TABLET.EFF NG-TUBE SCH ×2 (05:49→06:34)
[2020-09-08] MEDS: methylPREDNISolone SOD SUCCI 125 MG/2 ML VIAL IV SCH ×3 (05:50→17:32)
[2020-09-08 05:57] LABS: Glucose,Whole Blood 165 mg/dL (75-99)
[2020-09-08] MEDS: INSULIN ASPART (NovoLOG) 100 UNIT/ML VIAL SQ SCH ×3 (05:57→17:32)
[2020-09-08] MEDS: fentaNYL (PF) 1,000 MCG in SODIUM CHLORIDE 0.9% 80 ML IV SCH ×2 (06:34→19:51)
[2020-09-08] MEDS: ALBUTEROL HFA INHALER INHALATION SCH ×4 (07:20→19:17)
[2020-09-08] MEDS: CHOLECALCIFEROL 25 MCG (1000 IU) TABLET PO SCH (08:12)
[2020-09-08] MEDS: ZINC SULFATE 220 MG CAP PO SCH (08:12)
[2020-09-08] MEDS: ASCORBIC ACID 500 MG TAB PO SCH (08:12)
[2020-09-08] MEDS: CITALOPRAM HYDROBROMIDE 20 MG TAB PO SCH (08:12)
[2020-09-08] MEDS: PANTOPRAZOLE 40 MG TABLET PO SCH ×2 (08:13→20:00)
[2020-09-08] MEDS: ENOXAPARIN 40 MG/0.4 ML SYRINGE SQ SCH (08:13)
[2020-09-08] MEDS: CHLORHEXIDINE GLUCONATE 15 ML CUP MUCOUS MEM SCH ×2 (08:13→20:00)
[2020-09-08] MEDS: METOPROLOL TARTRATE 50 MG TAB PO SCH (08:14)
[2020-09-08] MEDS: lisinopriL 5 MG TAB PO SCH ×2 (08:14→20:00)
--- NOTE | 2020-09-08 09:24 | P.CRDCN ---
History of Present Illness Consult date: 09/08/20 Chief complaint: Shortness of breath History of present illness: This is a 65-year-old female patient with a past medical history significant for hypertension and dyslipidemia who requested to see in the intensive care unit for further evaluation of abnormal cardiac enzymes and slightly elevated troponin. The patient presented to the emergency department 2 days ago with symptoms of nausea and vomiting and also diarrhea and beside that she was reporting symptoms of fever as well as cough and symptoms of generalized weakness. No chest pain or chest discomfort but she wasn't short of breath. The patient was tested positive for COVID-19 infection. The chest x-ray showed bilateral patchy infiltrate and pneumonia. The PCR was positive. We requested to see the patient mainly because of abnormal cardiac enzymes. The first troponin was within normal limits and the second troponin came in to be slightly elevated but the third one came in to be within normal limits. Hemoglobin was 12.5. Kidney function is within normal limits. Again no reports symptoms of chest pain or chest discomfort. Currently the patient is intubated and she is on mechanical ventilation and the history was taken from the chart as well as from the nurse taking care of the patient. No prior history of coronary artery disease or congestive heart failure or cardiac arrhythmia and no history of any coronary revascularization in the past. Currently the patient is on aspirin as well as a statin as well as beta gricel. An echocardiogram was ordered and still pending at this point. Past Medical History Past Medical History: GERD/Reflux, Hypertension, Thyroid Disorder Additional Past Medical History / Comment(s): HEART murmur, IBS, hiatal hernia. raynauds History of Any Multi-Drug Resistant Organisms: None Reported Past Surgical History: Section, Hysterectomy, Orthopedic Surgery, Tonsillectomy, Uterine Ablation Additional Past Surgical History / Comment(s): RT CARPAL TUNNEL, 2 C-Sections Past Anesthesia/Blood Transfusion Reactions: Postoperative Nausea & Vomiting (PONV) Past Psychological History: No Psychological Hx Reported Smoking Status: Never smoker Past Alcohol Use History: None Reported Past Drug Use History: None Reported - Past Family History Father Family Medical History: Cancer Additional Family Medical History / Comment(s): Father has heart problems and has had prostate cancer. He is 78 yrs old. Mother Family Medical History: Cancer, Dementia Additional Family Medical History / Comment(s): Mother of dementia at age 78 yrs. Medications and Allergies Home Medications Medication Instructions Recorded Confirmed Type Levothyroxine Sodium [Synthroid] 75 mcg PO MOTUWETHFR 05/06/15 09/05/20 History Metoprolol Tartrate [Lopressor] 100 mg PO DAILY 05/06/15 09/05/20 History Montelukast [Singulair] 10 mg PO HS 05/06/15 09/05/20 History Rosuvastatin [Crestor] 10 mg PO HS 05/06/15 09/05/20 History lisinopriL [Prinivil] 5 mg PO HS 11/12/18 09/05/20 History metFORMIN HCL [Glucophage] 500 mg PO BID 11/12/18 09/05/20 History Aspirin EC [Ecotrin Low Dose] 81 mg PO HS 09/05/20 09/05/20 History Citalopram Hydrobromide [CeleXA] 40 mg PO DAILY 09/05/20 09/05/20 History Fexofenadine HCl [Shamika Allergy] 180 mg PO HS 09/05/20 09/05/20 History Levothyroxine Sodium [Synthroid] 37.5 mcg PO SA 09/05/20 09/05/20 History Melatonin 5 mg PO HS 09/05/20 09/05/20 History Multivitamins, Thera [Multivitamin 1 tab PO HS 09/05/20 09/05/20 History (formulary)] Omeprazole 20 mg PO BID 09/05/20 09/05/20 History amLODIPine [Norvasc] 5 mg PO DAILY@1400 09/05/20 09/05/20 History lisinopriL [Zestril] 10 mg PO DAILY 09/05/20 09/05/20 History Allergies Allergy/AdvReac Type Severity Reaction Status Date / Time Penicillins Allergy Rash/Hives Verified 09/05/20 20:18 Physical Exam Vitals: Vital Signs Temp Pulse Resp BP Pulse Ox 09/08/20 07:00 48 L 28 H 93 L 09/08/20 06:00 43 L 28 H 92 L 09/08/20 05:00 93.4 F L 41 L 28 H 93 L 09/08/20 04:00 96 F L 44 L 28 H 96 09/08/20 03:00 45 L 28 H 95 09/08/20 02:00 48 L 28 H 95 09/08/20 01:00 50 L 28 H 95 09/08/20 00:05 49 L 28 H 97 09/08/20 00:00 96.8 F L 47 L 28 H 97 09/07/20 23:00 51 L 28 H 96 09/07/20 22:00 52 L 28 H 96 09/07/20 21:00 56 L 28 H 96 09/07/20 20:00 97.6 F 60 28 H 95 09/07/20 19:00 61 28 H 97 09/07/20 18:00 64 28 H 97 09/07/20 17:00 69 28 H 96 09/07/20 16:00 73 28 H 97 09/07/20 15:00 79 28 H 97 09/07/20 14:35 101.8 F H 90 28 H 81/40 96 09/07/20 14:18 101.5 F H 91 28 H 81/41 95 09/07/20 14:09 101.5 F H 105 H 28 H 85/54 93 L 09/07/20 14:08 101.5 F H 98 28 H 85/54 93 L 09/07/20 14:00 109 H 28 H 93 L 09/07/20 13:00 114 H 28 H 91 L 09/07/20 12:00 102.6 F H 113 H 28 H 90 L 09/07/20 11:00 116 H 28 H 90 L 09/07/20 10:00 115 H 28 H 88 L Intake and Output 09/07/20 09/08/20 09/08/20 22:59 06:59 14:59 Intake Total 8742.888 8066.318 193.787 Output Total 354 253 25 Balance 477.749 6289.318 168.787 Intake: IV 1040 1040 130 Sodium Chloride 0.9% 1, 1040 1040 130 000 ml @ 130 mls/hr IV . Q7H42M [facility] Rx#:[id number] Intake, IV Titration 243.593 156.318 43.787 Amount Cisatracurium 200 mg In 106.426 32.933 Sodium Chloride 0.9% 180 ml @ 1 MCG/KG/MIN 3.81 mls/hr IV .Q24H [facility] Rx#: [id number] fentaNYL (PF) 1,000 mcg 65.617 69.533 In Sodium Chloride 0.9% 80 ml @ Per Protocol IV . Q0M [facility] Rx#:[id number] propofoL 1,000 mg In 71.55 53.852 43.787 Empty Bag 1 bag @ Titrate IV .Q0M [facility] Rx#: [id number] Tube Feeding 10 110 20 Other 60 Output: Urine 354 253 25 Other: Voiding Method Indwelling Catheter Indwelling Catheter Weight 70.6 kg ABP, PAP, CO, CI - Last 8 Hours Arterial Blood Pressure 98/50 Arterial Blood Pressure 110/52 Arterial Blood Pressure 102/50 Arterial Blood Pressure 117/57 Arterial Blood Pressure 96/62 Arterial Blood Pressure 99/51 - Constitutional General appearance: no acute distress Results 09/08/20 04:10 09/08/20 04:10 Cardiac Enzymes 09/07/20 09/07/20 09/08/20 Range/Units 14:29 14: 04:10 AST 50 H 48 H (14-36) U/L Troponin I 0.084 H* (0.000-0.034) ng/mL 09/08/20 Range/Units 04:10 AST (14-36) U/L Troponin I <0.012 (0.000-0.034) ng/mL CBC 09/07/20 09/08/20 Range/Units 14:29 04:10 WBC 5.7 5.4 (3.8-10.6) k/uL RBC 3.11 L 3.00 L (3.80-5.40) m/uL Hgb 9.2 L D 8.8 L (11.4-16.0) gm/dL Hct 26.4 L 25.4 L (34.0-46.0) % Plt Count 250 237 (150-450) k/uL Comprehensive Metabolic Panel 09/07/20 09/08/20 Range/Units 14:29 04:10 Sodium 140 139 (137-145) mmol/L Potassium 3.8 3.3 L (3.5-5.1) mmol/L Chloride 109 H 114 H (98-107) mmol/L Carbon Dioxide 23 19 L (22-30) mmol/L BUN 11 13 (7-17) mg/dL Creatinine 0.73 0.53 (0.52-1.04) mg/dL Glucose 129 H 144 H (74-99) mg/dL Calcium 7.3 L 7.1 L (8.4-10.2) mg/dL AST 50 H 48 H (14-36) U/L ALT 19 19 (4-34) U/L Alkaline Phosphatase 90 80 (38-126) U/L Total Protein 4.9 L 4.6 L (6.3-8.2) g/dL Albumin 2.6 L 2.3 L (3.5-5.0) g/dL Current Medications Generic Name Dose Route Start Last Admin Trade Name Freq PRN Reason Stop Dose Admin Acetaminophen 650 mg 09/05/20 21:59 09/06/20 12:25 Acetaminophen Tab 325 Mg Tab PO 650 mg Q6HR PRN Administration Mild Pain or Fever > 100.5 Albuterol Sulfate 2 puff 09/06/20 00:22 Albuterol Hfa Inhaler INHALATION RT-QID PRN Shortness Of Breath Or Wheezing Albuterol Sulfate 4 puff 09/08/20 08:00 09/08/20 07:20 Albuterol Hfa Inhaler INHALATION 4 puff RT-QID [facility] Administration Amlodipine Besylate 5 mg 09/06/20 14:00 09/07/20 14:56 Amlodipine 5 Mg Tab PO Not Given DAILY@1400 [facility] Artificial Tears 1 drops 09/08/20 00:00 09/08/20 08:11 Artificial Tears-Hypromellose Drops 15 Ml Btl BOTH EYES 1 drops Q4H [facility] Administration Ascorbic Acid 1,000 mg 09/06/20 09:00 09/08/20 08:12 Ascorbic Acid 500 Mg Tab PO 1,000 mg DAILY [facility] Administration Aspirin 81 mg 09/06/20 21:00 09/07/20 20:13 Aspirin 81 Mg PO 81 mg HS [facility] Administration Atorvastatin Calcium 20 mg 09/06/20 21:00 09/07/20 20:13 Atorvastatin 20 Mg Tab PO 20 mg HS [facility] Administration Chlorhexidine Gluconate 15 ml 09/07/20 09:00 09/08/20 08:13 Chlorhexidine Gluconate 15 Ml Cup MUCOUS MEM 15 ml BID [facility] Administration Cholecalciferol 125 mcg 09/06/20 09:00 09/08/20 08:12 Cholecalciferol 25 Mcg (1000 Iu) Tablet PO 125 mcg DAILY [facility] Administration Citalopram Hydrobromide 40 mg 09/06/20 09:00 09/08/20 08:12 Citalopram Hydrobromide 20 Mg Tab PO 40 mg DAILY [facility] Administration Enoxaparin Sodium 40 mg 09/07/20 21:15 09/08/20 08:13 Enoxaparin 40 Mg/0.4 Ml Syringe SQ 40 mg BID [facility] Administration Sodium Chloride 1,000 mls @ 130 mls/hr 09/05/20 22:00 09/08/20 04:06 Saline 0.9% IV 130 mls/hr .Q7H42M [facility] Administration Propofol 1,000 mg/ IV Solution 100 mls @ 0 mls/hr 09/07/20 05:15 09/08/20 08:11 IV 35 mcg/kg/min .Q0M [facility] 13.336 mls/hr Administration Protocol Titrate Cisatracurium Besylate 200 mg/ 200 mls @ 3.81 mls/hr 09/07/20 06:00 09/08/20 05:10 Sodium Chloride IV 1.45 mcg/kg/min .Q24H [facility] 5.525 mls/hr Administration Protocol 1 MCG/KG/MIN Fentanyl Citrate 1,000 mcg/ 100 mls @ 0 mls/hr 09/07/20 06:30 09/08/20 06:34 Sodium Chloride IV 1 mcg/kg/hr .Q0M [facility] 6.35 mls/hr Administration Protocol Per Protocol Insulin Aspart 0 unit 09/08/20 00:00 09/08/20 05:57 Insulin Aspart (Novolog) 100 Unit/Ml Vial SQ 3 unit Q6H [facility] Administration Protocol Levothyroxine Sodium 75 mcg 09/07/20 06:30 09/08/20 05:49 Levothyroxine 75 Mcg Tab PO 75 mcg [id number] [facility] Administration Levothyroxine Sodium 37.5 mcg 09/05/20 22:15 09/05/20 22:56 Levothyroxine 75 Mcg Tab PO 37.5 mcg SA [facility] Administration Lisinopril 10 mg 09/06/20 09:00 09/08/20 08:14 Lisinopril 5 Mg Tab PO Not Given DAILY [facility] Lisinopril 5 mg 09/06/20 21:00 09/07/20 19:38 Lisinopril 5 Mg Tab PO Not Given HS [facility] Loratadine 10 mg 09/06/20 21:00 09/07/20 20:13 Loratadine 10 Mg Tab PO 10 mg HS [facility] Administration Melatonin 5 mg 09/06/20 21:00 09/07/20 19:39 Melatonin 5 Mg Tablet PO Not Given HS [facility] Methylprednisolone Sodium Succinate 60 mg 09/07/20 12:00 09/08/20 05:50 Methylprednisolone Sod Succi 125 Mg/2 Ml Vial IV 60 mg Q6HR [facility] Administration Metoprolol Tartrate 100 mg 09/06/20 09:00 09/08/20 08:14 Metoprolol Tartrate 50 Mg Tab PO Not Given DAILY [facility] Miscellaneous Information 1 each 09/07/20 06:32 Potassium Replacement Protocol 1 Each Misc MISCELLANE DAILY PRN Per Protocol Protocol Montelukast Sodium 10 mg 09/06/20 21:00 09/07/20 20:13 Montelukast 10 Mg Tab PO 10 mg HS [facility] Administration Multivitamins 1 each 09/06/20 21:00 09/07/20 20:12 Multivitamins, Thera 1 Each Tab PO 1 each HS [facility] Administration Naloxone HCl 0.2 mg 09/05/20 21:59 Naloxone 0.4 Mg/Ml 1 Ml Vial IV Q2M PRN Opioid Reversal Pantoprazole Sodium 40 mg 09/06/20 09:00 09/08/20 08:13 Pantoprazole 40 Mg Tablet PO 40 mg BID [facility] Administration Zinc Sulfate 220 mg 09/06/20 09:00 09/08/20 08:12 Zinc Sulfate 220 Mg Cap PO 220 mg DAILY [facility] Administration Intake and Output 09/07/20 09/08/20 09/08/20 22:59 06:59 14:59 Intake Total 9195.462 9907.318 193.787 Output Total 354 253 25 Balance 223.925 0316.318 168.787 Intake: IV 1040 1040 130 Sodium Chloride 0.9% 1, 1040 1040 130 000 ml @ 130 mls/hr IV . Q7H42M [facility] Rx#:[id number] Intake, IV Titration 243.593 156.318 43.787 Amount Cisatracurium 200 mg In 106.426 32.933 Sodium Chloride 0.9% 180 ml @ 1 MCG/KG/MIN 3.81 mls/hr IV .Q24H [facility] Rx#: [id number] fentaNYL (PF) 1,000 mcg 65.617 69.533 In Sodium Chloride 0.9% 80 ml @ Per Protocol IV . Q0M [facility] Rx#:[id number] propofoL 1,000 mg In 71.55 53.852 43.787 Empty Bag 1 bag @ Titrate IV .Q0M [facility] Rx#: [id number] Tube Feeding 10 110 20 Other 60 Output: Urine 354 253 25 Other: Voiding Method Indwelling Catheter Indwelling Catheter Weight 70.6 kg 09/08/20 04:10 09/08/20 04:10 Assessment and Plan Assessment: Assessment #1 acute hypoxic respiratory failure secondary to COVID-19 pneumonia #2 mildly abnormal troponin #3 hypertension #4 dyslipidemia #5 multiple comorbid conditions Plan #1 consider conservative medical approach at this point #2 continue the current medical regimen #3 follow-up on the echocardiogram #4 follow-up with the patient
[2020-09-08] MEDS ORDERED: SODIUM CHLORIDE 0.9% 1,000 ML IV ONE (10:20)
--- NOTE | 2020-09-08 10:28 | PCN ---
PROCEDURE NOTE PULMONARY/CRITICAL CARE PROCEDURE NOTE: PROCEDURE: Left subclavian triple-lumen catheter. PREOPERATIVE DIAGNOSIS: Administration of fluids and pressors. POSTOPERATIVE DIAGNOSIS: Administration of fluids and pressors. OPERATORS: Dr. Leon and Danyell Larsen. TRIPLE LUMEN CATHETER PLACEMENT: Indication: Hemodynamic monitoring/Intravenous access. A time-out was completed verifying correct patient, procedure, site, positioning, and implant(s) or special equipment if applicable. The patient was placed in a dependent position appropriate for triple lumen catheter placement based on the vein to be cannulated. The patient's left shoulder was prepped and draped in sterile fashion. 1% Lidocaine was used to anesthetize the surrounding skin area. A triple lumen 9F Cordis catheter was introduced into the left subclavian vein using Seldinger technique. The catheter was threaded smoothly over the guide wire and appropriate blood return was obtained. Each lumen of the catheter was evacuated of air and flushed with sterile saline. The catheter was then sutured in place to the skin and a sterile dressing applied. Perfusion to the extremity distal to the point of catheter insertion was checked and found to be adequate. There was no immediate complication. The catheter was sutured in place. There was good blood return from all 3 ports. A sterile dressing was applied by the nurse. A chest x-ray was ordered. The tip of the catheter was seen in the right atrium. A sterile dressing was applied by the nurse. There was no immediate complication. MMODL / IJN: [id number] /
[2020-09-08 11:24] LABS: Glucose,Whole Blood 156 mg/dL (75-99)
--- NOTE | 2020-09-08 12:02 | XR ---
EXAMINATION TYPE: XR chest 1V portable DATE OF EXAM: 09/08/2020 COMPARISON: 09/08/2020 INDICATION: Placement TECHNIQUE: Single frontal view of the chest is obtained. FINDINGS: The heart size is normal. The pulmonary vasculature is normal. Consolidations are within the bilateral lung bases. This may be increasing on the right Endotracheal tube tip is above the jason. Left central venous catheter tips in the proximal right at rium. No pneumothorax is evident. Nasogastric tube tip is within the abdomen IMPRESSION: 1. Worsening bibasilar infiltrates. 2. Lines and catheters discussed above. 3. Left-sided central venous catheter placement with tip in the proximal right atrium. No pneumothora x is evident.
--- NOTE | 2020-09-08 12:04 | XR ---
EXAMINATION TYPE: XR chest 1V portable DATE OF EXAM: 09/08/2020 COMPARISON: 09/08/2020 INDICATION: Tube placement TECHNIQUE: Single frontal view of the chest is obtained. FINDINGS: The heart size is normal. The pulmonary vasculature is normal. Bibasilar infiltrates are present. There is an endotracheal tube tip above the jaosn. Nasogastric tube transverses the thorax. IMPRESSION: 1. Bibasilar infiltrates.
--- NOTE | 2020-09-08 12:17 | P.PN ---
Subjective Progress Note Date: 09/08/20 Principal diagnosis: Nausea, vomiting, diarrhea, weakness 65-year-old white female patient of Dr. Haq with past medical history of hypertension, hypothyroidism, IBS, hiatal hernia, renal disorder, who presented to the emergency department on 09/05/2020 with symptoms of nausea, vomiting, diarrhea, she reported some cough, fever and generalized weakness, but no overt shortness of breath. Patient had exposure to COVID 19 from her son and daughter. Patient had decreased oral intake, she came in with profound generalized weakness and not being able to keep fluids down. Chest x-ray showed bilateral patchy airspace pneumonia, COVID 19 PCR was positive. Patient was lymphopenic with lymphocytic 0.9, white blood cell count is 3.5, hemoglobin is 12.5, d-dimer 0.61, troponin was less than 0.012, pro calcitonin level was 0.07. LDH was 1550, CRP is 130.8, ferritin level is 337.5. Presentation patient was severely hypoxic, with O2 saturations in the low 80s on 100% FiO2. Blood gas was obtained showing pO2 of 44, pCO2 of 36, pH of 7.46, patient was intubated and placed on mechanical ventilator. She is currently sedated and paralyzed, and on assist control mode of ventilation with a rate of 28, tacrolimus 400, FiO2 100%, and PEEP of 14. This morning blood gases showed pO2 of 50, pCO2 36, and pH of 7.44. Currently patient sedated and paralyzed on [facility] ventilator. 0.9 at 130 in the per hour, and Nimbex is at 2 mics per kilo per minute, Diprivan is a 50 mics per kilo per minute, and fentanyl drip is currently is 1 mcg/kg/m. Patient has been started on IV steroids 60 mg every 6 hours of Solu-Medrol, she is on Lovenox 40 mg daily. She'll be given a dose of convalescent plasma and she is awaiting a dose of Tocili. Follow-up chest x-ray today shows increased bilateral patchy opacities, and trace right pleural effusion. CTA chest was completed showing no evidence of pulmonary embolism. On 09/08/2020 patient seen in follow-up in the intensive care units. She remains sedated, intubated, currently on assist control with a rate of 20s, tidal volume is 450, FiO2 70%, and PEEP of 18, this morning blood gases show pO2 of 63, pCO2 33, pH is 7.38. Patient is currently on 0.9 at 130 and no per hour, Diprivan is a 35 mics per kilo per minute, fentanyl drip is at 1 adam per kilo per minute, and Nexium is at 1.45 mics per kilo per minute. She is noted to be hypothermic early this morning with a temp of 93.4F. White blood cell count is 5.4, hemoglobin is 8.8, facet, 0.8, d-dimer is 1.67, sodium is 139, potassium is 3.3, chloride is 114, CO2 is 19, BUN is 13, creatinine 0.53, CRP is 216, AST is 40, ALT is 19, alkaline phosphatase is 80, troponin was less than 0.012. LDH is pending today. Progesterone level was negative at 0.07, urinalysis showed no evidence of infection. Blood cultures were negative. She remains on Lovenox 40 mg twice daily, IV Solu-Medrol 60 g every 6 hours, she received 480 mg of Tocilizumab. Received 1 unit of convalescent plasma. She is receiving nutritional support in the form of vital HP at 20 with a goal of 29. Has been tolerating tube feedings, fluid boluses were given yesterday, she still continues on 0.9 NS at 130 ML per hour and her urine output is marginal, and patient will receive additional liter fluid bolus Objective - Vital Signs Vital signs: Vital Signs Temp 93.4 F L 09/08/20 05:00 Pulse 48 L 09/08/20 07:00 Resp 28 H 09/08/20 07:00 BP 81/40 09/07/20 14:35 Pulse Ox 93 L 09/08/20 07:00 Intake & Output 09/07/20 09/08/20 09/08/20 18:59 06:59 18:59 Intake Total 2047.580 9568.911 193.787 Output Total 545 382 25 Balance 2239.203 5617.911 168.787 Weight 63.503 kg 70.6 kg Intake: IV 1560 1560 130 Sodium Chloride 0.9% 1, 1560 1560 130 000 ml @ 130 mls/hr IV . Q7H42M [facility] Rx#:[id number] Intake, IV Titration 40.334 399.911 43.787 Amount Cisatracurium 200 mg In 11.684 139.359 Sodium Chloride 0.9% 180 ml @ 1 MCG/KG/MIN 3.81 mls/hr IV .Q24H [facility] Rx#: [id number] fentaNYL (PF) 1,000 mcg 7.567 135.150 In Sodium Chloride 0.9% 80 ml @ Per Protocol IV . Q0M [facility] Rx#:[id number] propofoL 1,000 mg In 21.083 125.402 43.787 Empty Bag 1 bag @ Titrate IV .Q0M [facility] Rx#: [id number] Tube Feeding 120 20 Blood Product 308 Ffp Convalescent Plasma 308 Cpd Unit [id number] Other 60 Output: Urine 545 382 25 Other: Voiding Method Indwelling Catheter Indwelling Catheter ABP, PAP, CO, CI - Last Documented Arterial Blood Pressure 98/50 - Exam GENERAL EXAM: Sitting, intubated, 65-year-old white female, on assist-control mode of ventilation with FiO2 100%, comfortable in no apparent distress. HEAD: Normocephalic/atraumatic. EYES: Normal reaction of pupils, equal size. Conjunctiva pink, sclera white. NOSE: Clear with pink turbinates. THROAT: No erythema or exudates. NECK: No masses, no JVD, no thyroid enlargement, no adenopathy. CHEST: No chest wall deformity. Symmetrical expansion. LUNGS: Equal air entry with no crackles, wheeze, rhonchi or dullness. CVS: Regular rate and rhythm, normal S1 and S2, no gallops, no murmurs, no rubs ABDOMEN: Soft, nontender. No hepatosplenomegaly, normal bowel sounds, no guarding or rigidity. EXTREMITIES: No clubbing, no edema, no cyanosis, 2+ pulses and upper and lower extremities. MUSCULOSKELETAL: Muscle strength and tone normal. SPINE: No scoliosis or deformity SKIN: No rashes CENTRAL NERVOUS SYSTEM: Sedated, intubated No focal deficits, tone is normal in all 4 extremities. - Labs CBC & Chem 7: 09/08/20 04:10 09/08/20 04:10 Labs: Abnormal Lab Results - Last 24 Hours (Table) 09/07/20 09/07/20 09/07/20 Range/Units 04:23 12:26 13:14 RBC (3.80-5.40) m/uL Hgb (11.4-16.0) gm/dL Hct (34.0-46.0) % Lymphocytes # (1.0-4.8) k/uL D-Dimer (<0.60) mg/L FEU ABG pCO2 (35-45) mmHg ABG pO2 65 L (83-108) mmHg ABG HCO3 (21-25) mmol/L ABG Total CO2 26 H (19-24) mmol/L ABG O2 Saturation 93.2 L (94-97) % Potassium (3.5-5.1) mmol/L Chloride (98-107) mmol/L Carbon Dioxide (22-30) mmol/L Glucose (74-99) mg/dL POC Glucose (mg/dL) 120 H (75-99) mg/dL Calcium (8.4-10.2) mg/dL Ferritin 435.5 H (10.0-291.0) ng/mL AST (14-36) U/L Troponin I (0.000-0.034) ng/mL C-Reactive Protein (<10.0) mg/L Total Protein (6.3-8.2) g/dL Albumin (3.5-5.0) g/dL 09/07/20 09/07/20 09/07/20 Range/Units 14:29 14:29 14:29 RBC 3.11 L (3.80-5.40) m/uL Hgb 9.2 L D (11.4-16.0) gm/dL Hct 26.4 L (34.0-46.0) % Lymphocytes # 0.4 L (1.0-4.8) k/uL D-Dimer (<0.60) mg/L FEU ABG pCO2 (35-45) mmHg ABG pO2 (83-108) mmHg ABG HCO3 (21-25) mmol/L ABG Total CO2 (19-24) mmol/L ABG O2 Saturation (94-97) % Potassium (3.5-5.1) mmol/L Chloride 109 H (98-107) mmol/L Carbon Dioxide (22-30) mmol/L Glucose 129 H (74-99) mg/dL POC Glucose (mg/dL) (75-99) mg/dL Calcium 7.3 L (8.4-10.2) mg/dL Ferritin (10.0-291.0) ng/mL AST 50 H (14-36) U/L Troponin I 0.084 H* (0.000-0.034) ng/mL C-Reactive Protein (<10.0) mg/L Total Protein 4.9 L (6.3-8.2) g/dL Albumin 2.6 L (3.5-5.0) g/dL 09/07/20 09/07/20 09/08/20 Range/Units 17:31 23:27 04:10 RBC (3.80-5.40) m/uL Hgb (11.4-16.0) gm/dL Hct (34.0-46.0) % Lymphocytes # (1.0-4.8) k/uL D-Dimer 1.67 H (<0.60) mg/L FEU ABG pCO2 (35-45) mmHg ABG pO2 (83-108) mmHg ABG HCO3 (21-25) mmol/L ABG Total CO2 (19-24) mmol/L ABG O2 Saturation (94-97) % Potassium (3.5-5.1) mmol/L Chloride (98-107) mmol/L Carbon Dioxide (22-30) mmol/L Glucose (74-99) mg/dL POC Glucose (mg/dL) 177 H 177 H (75-99) mg/dL Calcium (8.4-10.2) mg/dL Ferritin (10.0-291.0) ng/mL AST (14-36) U/L Troponin I (0.000-0.034) ng/mL C-Reactive Protein (<10.0) mg/L Total Protein (6.3-8.2) g/dL Albumin (3.5-5.0) g/dL 09/08/20 09/08/20 09/08/20 Range/Units 04:10 04:10 05:31 RBC 3.00 L (3.80-5.40) m/uL Hgb 8.8 L (11.4-16.0) gm/dL Hct 25.4 L (34.0-46.0) % Lymphocytes # 0.8 L (1.0-4.8) k/uL D-Dimer (<0.60) mg/L FEU ABG pCO2 33 L (35-45) mmHg ABG pO2 63 L (83-108) mmHg ABG HCO3 19 L (21-25) mmol/L ABG Total CO2 (19-24) mmol/L ABG O2 Saturation 91.1 L (94-97) % Potassium 3.3 L (3.5-5.1) mmol/L Chloride 114 H (98-107) mmol/L Carbon Dioxide 19 L (22-30) mmol/L Glucose 144 H (74-99) mg/dL POC Glucose (mg/dL) (75-99) mg/dL Calcium 7.1 L (8.4-10.2) mg/dL Ferritin (10.0-291.0) ng/mL AST 48 H (14-36) U/L Troponin I (0.000-0.034) ng/mL C-Reactive Protein 216.0 H (<10.0) mg/L Total Protein 4.6 L (6.3-8.2) g/dL Albumin 2.3 L (3.5-5.0) g/dL 09/08/20 09/08/20 Range/Units 05:55 11:22 RBC (3.80-5.40) m/uL Hgb (11.4-16.0) gm/dL Hct (34.0-46.0) % Lymphocytes # (1.0-4.8) k/uL D-Dimer (<0.60) mg/L FEU ABG pCO2 (35-45) mmHg ABG pO2 (83-108) mmHg ABG HCO3 (21-25) mmol/L ABG Total CO2 (19-24) mmol/L ABG O2 Saturation (94-97) % Potassium (3.5-5.1) mmol/L Chloride (98-107) mmol/L Carbon Dioxide (22-30) mmol/L Glucose (74-99) mg/dL POC Glucose (mg/dL) 165 H 156 H (75-99) mg/dL Calcium (8.4-10.2) mg/dL Ferritin (10.0-291.0) ng/mL AST (14-36) U/L Troponin I (0.000-0.034) ng/mL C-Reactive Protein (<10.0) mg/L Total Protein (6.3-8.2) g/dL Albumin (3.5-5.0) g/dL Microbiology - Last 24 Hours (Table) 09/05/20 19:00 Blood Culture - Preliminary Blood No Growth after 48 hours 09/05/20 18:45 Blood Culture - Preliminary Blood No Growth after 48 hours Assessment and Plan Plan: Assessment: #1. Acute hypoxic respiratory failure related to acute COVID 19 pneumonia, patient was admitted to the hospital on 09/05/2020, transfer to the intensive care unit on 09/07/2020 and intubated on 09/07/2020, will receive a dose of Actemra 1, and, convalescent plasma 1 on 09/07/2020 #2. Increased d-dimer related to the above with no CT evidence of pulmonary embolism #3. Increased inflammatory markers #4. Hypertension #5. Hypothyroidism #6. Never smoker #7. IBS #8. Raynaud's Plan: Continue current medical treatment, continue current dose IV Solu-Medrol, we will adjust the Lovenox to 40 mg daily based on today's d-dimer. She has no CT evidence of pulmonary embolism. Continue follow d-dimer, inflammatory markers on a daily basis, patient is status post transfusion with 1 unit convalescent plasma and Actemra. His blood gases have been reviewed, we'll continue with current vent settings, continue to attempt to wean FiO2 to maintain O2 saturati ons between 88 and 90%. Continue closely follow the patient in the ICU, we'll give the patient 0.9 liter bolus continue maintenance fluids at 130 ML per hour. I performed a history & physical examination of the patient and discussed their management with my nurse practitioner, Danyell Larsen. I reviewed the nurse practitioner's note and agree with the documented findings and plan of care. Lung sounds are positive for diminished breath sounds. The findings and the impression was discussed with the patient. I attest to the documentation by the nurse practitioner. Time with Patient: Greater than 30
[2020-09-08] MEDS: amLODIPine 5 MG TAB PO SCH (14:51)
--- NOTE | 2020-09-08 16:55 | ECHOF ---
Referral Reason:Abnormal troponin MEASUREMENTS -------- HEIGHT: 127.0 cm WEIGHT: 70.3 kg BP: 110/52 IVSd: 1.2 cm (0.6 - 1.1) LVIDd: 3.6 cm (3.9 - 5.3) LVPWd: 1.0 cm (0.6 - 1.1) EDV(Teich): 56 ml IVSs: 1.8 cm LVIDs: 1.5 cm LVPWs: 1.9 cm %IVS Thck: 52 % ESV(Teich): 6 ml EF(Teich): 90 % %FS: 60 % SV(Teich): 50 ml RVIDd: 2.9 cm (< 3.3) IVC: 21.28 mm LALs A4C: 4.6 cm LAAs A4C: 13.3 cm LAESV A-L A4C: 33 ml LAESV MOD A4C: 30 ml LALs A2C: 4.2 cm LAAs A2C: 10.8 cm LAESV A-L A2C: 24 ml LAESV MOD A2C: 22 ml LAESV(A-L): 29 ml LAESV Index (A-L): 19.82 ml/m Ao Diam: 2.6 cm (2.0 - 3.7) LA Diam: 2.9 cm (2.7 - 3.8) AV Cusp: 1.8 cm (1.5 - 2.6) EPSS: 0.2 cm MV E Yann: 0.93 m/s MV DecT: 253 ms MV Dec Morris: 3.7 m/s MV A Yann: 0.54 m/s MV E/A Ratio: 1.70 MV PHT: 73 ms MR Vmax: 1.00 m/s MR maxP.99 mmHg AV Vmax: 1.03 m/s AV maxP.20 mmHg TR Vmax: 1.62 m/s TR maxP.50 mmHg RAP: 20.00 mmHg RVSP: 30.50 mmHg MV EF SLOPE: 114.86 mm/s (70 - 150) MV EXCURSION: 13.34 mm (> 18.000) FINDINGS -------- This was a technically adequate study. Pt. on a vent. The left ventricular size is normal. There is borderline concentric left ventricular hypertrophy. Overall left ventricular systolic function is normal with, an EF between 55 - 60 %. The diastolic filling pattern is normal for the age of the patient 13.73. The right ventricle is normal in size. The left atrial size is normal. Normal LA size by volume 22+/-6 ml/m2. The right atrial size is normal. Interatrial and interventricular septum intact. The aortic valve is trileaflet and appears structurally normal. The mitral valve is normal. There is trace mitral regurgitation. The tricuspid valve appears structurally normal. Mild tricuspid regurgitation present. Right vent ricular systolic pressure is normal at < 35 mmHg. There is no pulmonic regurgitation present. The aortic root size is normal. The inferior vena cava is dilated with no significant inspiratory collapse which is consistent estima gerardo right atrial pressure of >20 mmHg. There is no pericardial effusion. CONCLUSIONS -------- 1. The left ventricular size is normal. 2. There is borderline concentric left ventricular hypertrophy. 3. Overall left ventricular systolic function is normal with, an EF between 55 - 60 %. 4. The diastolic filling pattern is normal for the age of the patient 13.73 5. There is trace mitral regurgitation. 6. Mild tricuspid regurgitation present. 7. The inferior vena cava is dilated with no significant inspiratory collapse which is consistent est imated right atrial pressure of >20 mmHg. 8. There is no pericardial effusion. COOLER MAN: Kellen Edmonds RDCS
[2020-09-08 17:13] LABS: Glucose,Whole Blood 177 mg/dL (75-99)
--- NOTE | 2020-09-08 19:24 | P.PN ---
Progress Note - Text Progress Note Date: 09/08/20 Chief Complaint: Difficulty breathing/COVID positive History of presenting complaint 65-year-old female , whose PCP is Dr. Haq, states she's been exposed to Covid 19 from both her son and daughter who states she's had symptoms similar today for last 8 days which include nausea vomiting recently diarrhea rhinorrhea no overt shortness of breath she does have a cough also a fever and generalized weakness. decreased oral intake. She is here just because she is profoundly weak at this time. Not able to keep fluids down. Admitted with COVID 19 pneumonia. Acute hypoxic respiratory failure. Patient was given convalescent plasma. Dexamethasone, September 07: into respiratory distress. intubated. Given ACTEMRA. Convalescent plasma. , Today: ICU: Drips include: Propofol, fentanyl, Nimbex. Ventilator: 70% with a PEEP of 18 2 feeding at 29 mL an hour. Sinus rhythm Review of systems: Patient intubated Active Medications Acetaminophen (Acetaminophen Tab 325 Mg Tab) 650 mg PO Q6HR PRN PRN Reason: Mild Pain or Fever > 100.5 Last Admin: 09/06/20 12:25 Dose: 650 mg Documented by: Albuterol Sulfate (Albuterol Hfa Inhaler) 2 puff INHALATION RT-QID PRN PRN Reason: Shortness Of Breath Or Wheezing Albuterol Sulfate (Albuterol Hfa Inhaler) 4 puff INHALATION RT-QID [facility] Last Admin: 09/08/20 19:17 Dose: 4 puff Documented by: Amlodipine Besylate (Amlodipine 5 Mg Tab) 5 mg PO DAILY@1400 [facility] Last Admin: 09/08/20 14:51 Dose: 5 mg Documented by: Artificial Tears (Artificial Tears-Hypromellose Drops 15 Ml Btl) 1 drops BOTH EYES Q4H [facility] Last Admin: 09/08/20 16:21 Dose: 1 drops Documented by: Ascorbic Acid (Ascorbic Acid 500 Mg Tab) 1,000 mg PO DAILY [facility] Last Admin: 09/08/20 08:12 Dose: 1,000 mg Documented by: Aspirin (Aspirin 81 Mg) 81 mg PO [facility] Last Admin: 09/07/20 20:13 Dose: 81 mg Documented by: Atorvastatin Calcium (Atorvastatin 20 Mg Tab) 20 mg PO [facility] Last Admin: 09/07/20 20:13 Dose: 20 mg Documented by: Chlorhexidine Gluconate (Chlorhexidine Gluconate 15 Ml Cup) 15 ml MUCOUS MEM BID [facility] Last Admin: 09/08/20 08:13 Dose: 15 ml Documented by: Cholecalciferol (Cholecalciferol 25 Mcg (1000 Iu) Tablet) 125 mcg PO DAILY [facility] Last Admin: 09/08/20 08:12 Dose: 125 mcg Documented by: Citalopram Hydrobromide (Citalopram Hydrobromide 20 Mg Tab) 40 mg PO DAILY [facility] Last Admin: 09/08/20 08:12 Dose: 40 mg Documented by: Enoxaparin Sodium (Enoxaparin 40 Mg/0.4 Ml Syringe) 40 mg SQ DAILY [facility] Sodium Chloride (Saline 0.9%) 1,000 mls @ 130 mls/hr IV .Q7H42M [facility] Last Admin: 09/08/20 17:44 Dose: 130 mls/hr Documented by: Propofol 1,000 mg/ IV Solution 100 mls @ 0 mls/hr IV .Q0M [facility]; Protocol Last Admin: 09/08/20 17:43 Dose: 45 mcg/kg/min, 19.062 mls/hr Documented by: Cisatracurium Besylate 200 mg/ (Sodium Chloride) 200 mls @ 3.81 mls/hr IV .Q24H [facility]; Protocol Last Admin: 09/08/20 05:10 Dose: 1.45 mcg/kg/min, 5.525 mls/hr Documented by: Fentanyl Citrate 1,000 mcg/ (Sodium Chloride) 100 mls @ 0 mls/hr IV .Q0M [facility]; Protocol Last Admin: 09/08/20 06:34 Dose: 1 mcg/kg/hr, 6.35 mls/hr Documented by: Insulin Aspart (Insulin Aspart (Novolog) 100 Unit/Ml Vial) 0 unit SQ Q6H [facility]; Protocol Last Admin: 09/08/20 17:32 Dose: 4 unit Documented by: Levothyroxine Sodium (Levothyroxine 75 Mcg Tab) 75 mcg PO MoTuWeThFr@0630 [facility] Last Admin: 09/08/20 05:49 Dose: 75 mcg Documented by: Levothyroxine Sodium (Levothyroxine 75 Mcg Tab) 37.5 mcg PO SA [facility] Last Admin: 09/05/20 22:56 Dose: 37.5 mcg Documented by: Lisinopril (Lisinopril 5 Mg Tab) 10 mg PO DAILY [facility] Last Admin: 09/08/20 08:14 Dose: Not Given Documented by: Lisinopril (Lisinopril 5 Mg Tab) 5 mg PO [facility] Last Admin: 09/07/20 19:38 Dose: Not Given Documented by: Loratadine (Loratadine 10 Mg Tab) 10 mg PO [facility] Last Admin: 09/07/20 20:13 Dose: 10 mg Documented by: Melatonin (Melatonin 5 Mg Tablet) 5 mg PO [facility] Last Admin: 09/07/20 19:39 Dose: Not Given Documented by: Methylprednisolone Sodium Succinate (Methylprednisolone Sod Succi 125 Mg/2 Ml Vial) 60 mg IV Q6HR [facility] Last Admin: 09/08/20 17:32 Dose: 60 mg Documented by: Metoprolol Tartrate (Metoprolol Tartrate 50 Mg Tab) 100 mg PO DAILY [facility] Last Admin: 09/08/20 08:14 Dose: Not Given Documented by: Miscellaneous Information (Potassium Replacement Protocol 1 Each Misc) 1 each MISCELLANE DAILY PRN; Protocol PRN Reason: Per Protocol Montelukast Sodium (Montelukast 10 Mg Tab) 10 mg PO [facility] Last Admin: 09/07/20 20:13 Dose: 10 mg Documented by: Multivitamins (Multivitamins, Thera 1 Each Tab) 1 each PO [facility] Last Admin: 09/07/20 20:12 Dose: 1 each Documented by: Naloxone HCl (Naloxone 0.4 Mg/Ml 1 Ml Vial) 0.2 mg IV Q2M PRN PRN Reason: Opioid Reversal Pantoprazole Sodium (Pantoprazole 40 Mg Tablet) 40 mg PO BID [facility] Last Admin: 09/08/20 08:13 Dose: 40 mg Documented by: Zinc Sulfate (Zinc Sulfate 220 Mg Cap) 220 mg PO DAILY [facility] Last Admin: 09/08/20 08:12 Dose: 220 mg Documented by: On examination: VITAL SIGNS: 98.1, 62, 28, 106/62, 113/57, 93% on the ventilator GENERAL APPEARANCE: laying in bed, intubated HEENT: Endotracheal tube PSYCHIATRY: Unable to assess Rest of exam as per pulmonary nursing INVESTIGATIONS, reviewed in the clinical context: September 08: WBC 5.4 hemoglobin 8.8 platelets 237 d-dimer 1.67. Potassium 3.3 creatinine 0.53 CRP 216 September 07: WBC 5.7 hemoglobin 9.2 platelets 250 potassium 3.8 creatinine 0.73 troponin I 0.084 albumin 2.6 Chest x-ray film personally reviewed by me-[September 07: Bilateral infiltrates, confluent more so in the lower zones and metolazone EKG tracing personally reviewed by me-normal sinus rhythm. Nonspecific changes CT [place] chest: Extensive bilateral infiltrates with adenopathy. No PE Admission labs: Troponin I less than 0.012 Assessment and plan Acute hypoxic respiratory not improving - intubated on September 07. On the ventilator Interstitial pneumonia secondary to COVID-19: Not improving -Receiving Lovenox, dexamethasone, vitamin C vitamin D, Pepcid, zinc. Received ACTEMRA and convalescent plasma Hypothyroidism; - levothyroxine 75 MCG daily Essential Hypertension; - continue with home dose of metoprolol 100 mg daily, lisinopril 5 mg daily, N orvasc 10 mg daily Hyperlipidemia; -continue with home statin therapy Asthma; not in exacerbation; -continue singular 10 mg daily home inhaler therapy GERD: - Continue with PPI Irritable bowel syndrome: -Follow clinically Raynauds phenomenon. - Follow clinically Diabetes mellitus type 2; -hold metformin. Follow Accu-Cheks. Normocytic anemia. -Follow H&H Acute hypoalbuminemia: -Acute phase reactant Obesity BMI 31.4 -To follow outpatient for weight loss measures CODE STATUS; full code Patient remains rather critically ill. In the ICU. Intubated. Follow with director of accounts payable
[2020-09-08] MEDS: MELATONIN 5 MG TABLET PO SCH (20:00)
[2020-09-08] MEDS: ATORVASTATIN 20 MG TAB PO SCH (20:00)
[2020-09-08] MEDS: MULTIVITAMINS, THERA 1 EACH TAB PO SCH (20:00)
[2020-09-08] MEDS: LORATADINE 10 MG TAB PO SCH (20:00)
[2020-09-08] MEDS: MONTELUKAST 10 MG TAB PO SCH (20:00)
[2020-09-08] MEDS: ASPIRIN 81 MG PO SCH (20:02)
[2020-09-09 00:07] LABS: Glucose,Whole Blood 175 mg/dL (75-99)
[2020-09-09] MEDS: ARTIFICIAL TEARS-HYPROMELLOSE DROPS 15 ML BTL BOTH EYES SCH ×6 (00:37→21:51)
[2020-09-09] MEDS: methylPREDNISolone SOD SUCCI 125 MG/2 ML VIAL IV SCH ×4 (00:37→17:13)
[2020-09-09] MEDS: INSULIN ASPART (NovoLOG) 100 UNIT/ML VIAL SQ SCH ×4 (00:38→18:10)
[2020-09-09 03:53] LABS: Basophils % (A) 0 %; Eosinophils % (A) 0 %; HCT 26.6 % (34.0-46.0); Lymphocytes # (A) 0.8 k/uL (1.0-4.8); Lymphocytes % (A) 8 %; MCH 28.9 pg (25.0-35.0); MCHC 33.8 g/dL (31.0-37.0); MCV 85.6 fL (80.0-100.0); Mean Platelet Volume 7.7; Monocytes # (A) 0.4 k/uL (0-1.0); Monocytes % (A) 3 %; Neutrophils # (A) 9.1 k/uL (1.3-7.7); Neutrophils % (A) 87 %; Platelet Count 352 k/uL (150-450); RBC 3.11 m/uL (3.80-5.40); RDW 13.3 % (11.5-15.5); WBC 10.5 k/uL (3.8-10.6)
[2020-09-09 04:14] LABS: ALT 19 U/L (4-34); AST 39 U/L (14-36); African American GFR (CKD) >90 (>60 ml/min/1.73 sqM); Albumin 2.3 g/dL (3.5-5.0); Alkaline Phosphatase 86 U/L (38-126); Anion Gap 4 mmol/L; Blood Urea Nitrogen 17 mg/dL (7-17); Calcium 7.3 mg/dL (8.4-10.2); Carbon Dioxide 22 mmol/L (22-30); Chloride 118 mmol/L (98-107); Glucose 172 mg/dL (74-99); Non-African American GFR(CKD) >90 (>60 ml/min/1.73 sqM); Potassium 4.2 mmol/L (3.5-5.1); Sodium 144 mmol/L (137-145); Total Bilirubin 0.3 mg/dL (0.2-1.3); Total Protein 4.6 g/dL (6.3-8.2)
[2020-09-09] MEDS: SODIUM CHLORIDE 0.9% 1,000 ML IV SCH ×2 (04:29→18:04)
[2020-09-09 04:37] LABS: C Reactive Protein 80.1 mg/L (<10.0)
[2020-09-09 05:24] LABS: ABG Base Excess -3.9 mmol/L; ABG HCO3 21 mmol/L (21-25); ABG Oxygen Saturation 96.3 % (94-97); ABG PCO2 37 mmHg (35-45); ABG PH 7.37 (7.35-7.45); ABG PO2 84 mmHg (83-108); ABG TCO2 22 mmol/L (19-24); Allen Test Performed? Yes
[2020-09-09 05:56] LABS: Glucose,Whole Blood 181 mg/dL (75-99)
[2020-09-09] MEDS: LEVOTHYROXINE 75 MCG TAB PO SCH (06:15)
[2020-09-09] MEDS: fentaNYL (PF) 1,000 MCG in SODIUM CHLORIDE 0.9% 80 ML IV SCH ×3 (06:31→17:23)
--- NOTE | 2020-09-09 07:30 | XR ---
EXAMINATION TYPE: XR chest 1V portable DATE OF EXAM: 09/09/2020 COMPARISON: NONE HISTORY: SOB, Follow Up FINDINGS: Indwelling tubes and catheters are unchanged. Diffuse airspace infiltrates persist unchanged. Stable appearance of the cardio-mediastinal structures at this time. Pleural effusion unchanged. IMPRESSION: 1. Stable portable chest. Clinical correlation and follow up until resolution is recommended.
[2020-09-09] MEDS: ALBUTEROL HFA INHALER INHALATION SCH ×4 (07:52→21:46)
[2020-09-09] MEDS: PANTOPRAZOLE 40 MG TABLET PO SCH ×2 (07:59→21:40)
[2020-09-09] MEDS: CHOLECALCIFEROL 25 MCG (1000 IU) TABLET PO SCH (07:59)
[2020-09-09] MEDS: CITALOPRAM HYDROBROMIDE 20 MG TAB PO SCH (07:59)
[2020-09-09] MEDS: ZINC SULFATE 220 MG CAP PO SCH (07:59)
[2020-09-09] MEDS: ASCORBIC ACID 500 MG TAB PO SCH (08:00)
[2020-09-09] MEDS: CHLORHEXIDINE GLUCONATE 15 ML CUP MUCOUS MEM SCH ×3 (08:00→21:47)
--- NOTE | 2020-09-09 08:40 | P.PN ---
Subjective Progress Note Date: 09/09/20 Principal diagnosis: Abnormal cardiac enzymes This is a 65-year-old female patient with hypertension and dyslipidemia was admitted to the hospital with acute hypoxic respiratory failure secondary to COVID-19 infection. We consulted to see the patient because of mildly abnormal troponin. The patient was seen today 09/10/2019 first. She remains intubated on mechanical ventilation beach she is hemodynamic be stable. The echo revealed normal left ventricle systolic function without any evidence of wall motion abnormalities. We decided to consider a conservative medical approach in the absence of any evidence of ischemic ST or T-wave abnormalities concerning for ischemia. The patient currently is on maximize medical treatment. Objective - Vital Signs Vital signs: Vital Signs Temp 98.1 F 09/09/20 04:00 Pulse 68 09/09/20 07:00 Resp 28 H 09/09/20 07:00 BP 134/73 09/09/20 07:00 Pulse Ox 93 L 09/09/20 07:00 Intake & Output 09/08/20 09/09/20 09/09/20 18:59 06:59 18:59 Intake Total 3078.787 2320.204 226.67 Output Total 550 510 60 Balance 2528.787 1810.204 166.67 Weight 76.6 kg Intake: IV 2560 1560 130 Sodium Chloride 0.9% 1, 1560 1560 130 000 ml @ 130 mls/hr IV . Q7H42M [facility] Rx#:[id number] Sodium Chloride 0.9% 1, 1000 000 ml @ 999 mls/hr IV . Q1H1M [facility] Rx#:[id number] Intake, IV Titration 143.787 351.204 67.67 Amount fentaNYL (PF) 1,000 mcg 152.082 In Sodium Chloride 0.9% 80 ml @ Per Protocol IV . Q0M [facility] Rx#:[id number] propofoL 1,000 mg In 143.787 199.122 67.67 Empty Bag 1 bag @ Titrate IV .Q0M [facility] Rx#: [id number] Oral 30 Tube Feeding 285 319 29 Other 60 90 Output: Urine 550 510 60 Other: Voiding Method Indwelling Catheter Indwelling Catheter ABP, PAP, CO, CI - Last Documented Arterial Blood Pressure 139/69 - Labs CBC & Chem 7: 09/09/20 03:35 09/09/20 03:35 Labs: Abnormal Lab Results - Last 24 Hours (Table) 09/08/20 09/08/20 09/09/20 Range/Units 11:22 17:12 00:05 RBC (3.80-5.40) m/uL Hgb (11.4-16.0) gm/dL Hct (34.0-46.0) % Neutrophils # (1.3-7.7) k/uL Lymphocytes # (1.0-4.8) k/uL D-Dimer (<0.60) mg/L FEU Chloride (98-107) mmol/L Glucose (74-99) mg/dL POC Glucose (mg/dL) 156 H 177 H 175 H (75-99) mg/dL Calcium (8.4-10.2) mg/dL AST (14-36) U/L Lactate Dehydrogenase (313-618) U/L C-Reactive Protein (<10.0) mg/L Total Protein (6.3-8.2) g/dL Albumin (3.5-5.0) g/dL 09/09/20 09/09/20 09/09/20 Range/Units 03:35 03:35 03:35 RBC 3.11 L (3.80-5.40) m/uL Hgb 9.0 L (11.4-16.0) gm/dL Hct 26.6 L (34.0-46.0) % Neutrophils # 9.1 H (1.3-7.7) k/uL Lymphocytes # 0.8 L (1.0-4.8) k/uL D-Dimer 3.00 H (<0.60) mg/L FEU Chloride 118 H (98-107) mmol/L Glucose 172 H (74-99) mg/dL POC Glucose (mg/dL) (75-99) mg/dL Calcium 7.3 L (8.4-10.2) mg/dL AST 39 H (14-36) U/L Lactate Dehydrogenase (313-618) U/L C-Reactive Protein (<10.0) mg/L Total Protein 4.6 L (6.3-8.2) g/dL Albumin 2.3 L (3.5-5.0) g/dL 09/09/20 09/09/20 Range/Units 03:35 05:54 RBC (3.80-5.40) m/uL Hgb (11.4-16.0) gm/dL Hct (34.0-46.0) % Neutrophils # (1.3-7.7) k/uL Lymphocytes # (1.0-4.8) k/uL D-Dimer (<0.60) mg/L FEU Chloride (98-107) mmol/L Glucose (74-99) mg/dL POC Glucose (mg/dL) 181 H (75-99) mg/dL Calcium (8.4-10.2) mg/dL AST (14-36) U/L Lactate Dehydrogenase 1453 H (313-618) U/L C-Reactive Protein 80.1 H (<10.0) mg/L Total Protein (6.3-8.2) g/dL Albumin (3.5-5.0) g/dL Microbiology - Last 24 Hours (Table) 09/05/20 18:45 Blood Culture - Preliminary Blood No Growth after 72 hours 09/05/20 19:00 Blood Culture - Preliminary Blood No Growth after 72 hours Assessment and Plan Assessment: Assessment #1 acute hypoxic respiratory failure secondary to COVID-19 pneumonia #2 mildly abnormal troponin #3 hypertension #4 dyslipidemia #5 multiple comorbid conditions Plan #1 consider conservative medical approach at this point #2 continue the current medical regimen #3 the echo was reviewed and revealed normal LV function without any wall motion abnormalities. #4 follow-up with the patient
[2020-09-09] MEDS ORDERED: ENOXAPARIN 40 MG/0.4 ML SYRINGE SQ SCH (09:00)
[2020-09-09] MEDS: CISATRACURIUM 200 MG in SODIUM CHLORIDE 0.9% 180 ML IV SCH (09:25)
[2020-09-09] MEDS: METOPROLOL TARTRATE 50 MG TAB PO SCH (10:03)
[2020-09-09 11:24] LABS: Glucose,Whole Blood 191 mg/dL (75-99)
[2020-09-09 11:38] LABS: Glucose,Whole Blood 190 mg/dL (75-99)
[2020-09-09 12:05] LABS: Ferritin 262.3 ng/mL (10.0-291.0)
--- NOTE | 2020-09-09 13:13 | P.PN ---
Subjective Progress Note Date: 09/09/20 Principal diagnosis: Acute hypoxemic respiratory failure 65-year-old white female patient of Dr. Haq with past medical history of hypertension, hypothyroidism, IBS, hiatal hernia, renal disorder, who presented to the emergency department on 09/05/2020 with symptoms of nausea, vomiting, diarrhea, she reported some cough, fever and generalized weakness, but no overt shortness of breath. Patient had exposure to COVID 19 from her son and daughter. Patient had decreased oral intake, she came in with profound generalized weakness and not being able to keep fluids down. Chest x-ray showed bilateral patchy airspace pneumonia, COVID 19 PCR was positive. Patient was lymphopenic with lymphocytic 0.9, white blood cell count is 3.5, hemoglobin is 12.5, d-dimer 0.61, troponin was less than 0.012, pro calcitonin level was 0.07. LDH was 1550, CRP is 130.8, ferritin level is 337.5. Presentation patient was severely hypoxic, with O2 saturations in the low 80s on 100% FiO2. Blood gas was obtained showing pO2 of 44, pCO2 of 36, pH of 7.46, patient was intubated and placed on mechanical ventilator. She is currently sedated and paralyzed, and on assist control mode of ventilation with a rate of 28, tacrolimus 400, FiO2 100%, and PEEP of 14. This morning blood gases showed pO2 of 50, pCO2 36, and pH of 7.44. Currently patient sedated and paralyzed on [facility] ventilator. 0.9 at 130 in the per hour, and Nimbex is at 2 mics per kilo per minute, Diprivan is a 50 mics per kilo per minute, and fentanyl drip is currently is 1 mcg/kg/m. Patient has been started on IV steroids 60 mg every 6 hours of Solu-Medrol, she is on Lovenox 40 mg daily. She'll be given a dose of convalescent plasma and she is awaiting a dose of Tocili. Follow-up chest x-ray today shows increased bilateral patchy opacities, and trace right pleural effusion. CTA chest was completed showing no evidence of pulmonary embolism. On 09/08/2020 patient seen in follow-up in the intensive care units. She remains sedated, intubated, currently on assist control with a rate of 20s, tidal volume is 450, FiO2 70%, and PEEP of 18, this morning blood gases show pO2 of 63, pCO2 33, pH is 7.38. Patient is currently on 0.9 at 130 and no per hour, Diprivan is a 35 mics per kilo per minute, fentanyl drip is at 1 adam per kilo per minute, and Nexium is at 1.45 mics per kilo per minute. She is noted to be hypothermic early this morning with a temp of 93.4F. White blood cell count is 5.4, hemoglobin is 8.8, facet, 0.8, d-dimer is 1.67, sodium is 139, potassium is 3.3, chloride is 114, CO2 is 19, BUN is 13, creatinine 0.53, CRP is 216, AST is 40, ALT is 19, alkaline phosphatase is 80, troponin was less than 0.012. LDH is pending today. Progesterone level was negative at 0.07, urinalysis showed no evidence of infection. Blood cultures were negative. She remains on Lovenox 40 mg twice daily, IV Solu-Medrol 60 g every 6 hours, she received 480 mg of Tocilizumab. Received 1 unit of convalescent plasma. She is receiving nutritional support in the form of vital HP at 20 with a goal of 29. Has been tolerating tube feedings, fluid boluses were given yesterday, she still continues on 0.9 NS at 130 ML per hour and her urine output is marginal, and patient will receive additional liter fluid bolus Progress note dated 09/09/2020. 65-year-old female, seen again today in room 263. She remains on mechanical ventilator. She is on the volume assist control mode, rate of 28, tidal volume 400, FiO2 70%, and a PEEP of 18. Blood gases show pO2 of 83, pCO2 of 37, and a pH is 7.37. Currently, she is on propofol at 50 g kilogram per minute, fentanyl 1 mcg/kg/h, Nimbex at 1.5 mcg/kg/m, saline at 130 mL an hour, vital high protein at 29 mL an hour, which is goal. We will attempt to get her off the Nimbex today if possible. White count 10.5, hemoglobin 9, hematocrit 26.6, platelet count 352,000. D-dimer is 3. Sodium 144, potassium 4.2, chlorides 118, CO2 22, anion gap 4, BUN 17, creatinine 0.59. Calcium 7.3. LDH 1453, and C-reactive protein is 80.1. Chest x-ray shows diffuse bilateral airspace disease which is stable. Objective - Vital Signs Vital signs: Vital Signs Temp 98.3 F 09/09/20 08:00 Pulse 98 09/09/20 10:00 Resp 28 H 09/09/20 10:00 BP 134/73 09/09/20 07:00 Pulse Ox 94 L 09/09/20 10:00 Intake & Output 09/08/20 09/09/20 09/09/20 18:59 06:59 18:59 Intake Total 3078.787 2320.204 1009.224 Output Total 550 510 245 Balance 2528.787 1810.204 764.224 Weight 76.6 kg Intake: IV 2560 1560 520 Sodium Chloride 0.9% 1, 1560 1560 520 000 ml @ 130 mls/hr IV . Q7H42M [facility] Rx#:[id number] Sodium Chloride 0.9% 1, 1000 000 ml @ 999 mls/hr IV . Q1H1M [facility] Rx#:[id number] Intake, IV Titration 143.787 351.204 343.224 Amount Cisatracurium 200 mg In 156.081 Sodium Chloride 0.9% 180 ml @ 1 MCG/KG/MIN 3.81 mls/hr IV .Q24H [facility] Rx#: [id number] fentaNYL (PF) 1,000 mcg 152.082 19.473 In Sodium Chloride 0.9% 80 ml @ Per Protocol IV . Q0M [facility] Rx#:[id number] propofoL 1,000 mg In 143.787 199.122 167.670 Empty Bag 1 bag @ Titrate IV .Q0M [facility] Rx#: [id number] Oral 30 Tube Feeding 285 319 116 Other 60 90 30 Output: Urine 550 510 245 Other: Voiding Method Indwelling Catheter Indwelling Catheter Indwelling Catheter ABP, PAP, CO, CI - Last Documented Arterial Blood Pressure 178/86 - Exam No acute distress, oriented 3. The patient is sedated and intubated and on the mechanical ventilator. She is also chemically paralyzed. HEENT examination is grossly unremarkable. Neck supple. Full range of motion. No adenopathy thyromegaly or neck vein d istention. Cardiovascular examination reveals regular rhythm rate. S1-S2 normal. No S3 or S4. No discernible murmur noted. Heart rate 98 bpm. Lungs reveal coarse bilateral breath sounds. No wheezes. No crackles. Breath sounds equal bilaterally. Abdomen soft bowel sounds are heard. No masses or tenderness. Extremities are intact. No cyanosis clubbing or edema. Skin is without rash or lesion. Neurologic examination is difficult to evaluate because of patient's currently sedated and paralyzed. - Labs CBC & Chem 7: 09/09/20 03:35 09/09/20 03:35 Labs: Abnormal Lab Results - Last 24 Hours (Table) 09/08/20 09/09/20 09/09/20 Range/Units 17:12 00:05 03:35 RBC 3.11 L (3.80-5.40) m/uL Hgb 9.0 L (11.4-16.0) gm/dL Hct 26.6 L (34.0-46.0) % Neutrophils # 9.1 H (1.3-7.7) k/uL Lymphocytes # 0.8 L (1.0-4.8) k/uL D-Dimer (<0.60) mg/L FEU Chloride (98-107) mmol/L Glucose (74-99) mg/dL POC Glucose (mg/dL) 177 H 175 H (75-99) mg/dL Calcium (8.4-10.2) mg/dL AST (14-36) U/L Lactate Dehydrogenase (313-618) U/L C-Reactive Protein (<10.0) mg/L Total Protein (6.3-8.2) g/dL Albumin (3.5-5.0) g/dL 09/09/20 09/09/20 09/09/20 Range/Units 03:35 03:35 03:35 RBC (3.80-5.40) m/uL Hgb (11.4-16.0) gm/dL Hct (34.0-46.0) % Neutrophils # (1.3-7.7) k/uL Lymphocytes # (1.0-4.8) k/uL D-Dimer 3.00 H (<0.60) mg/L FEU Chloride 118 H (98-107) mmol/L Glucose 172 H (74-99) mg/dL POC Glucose (mg/dL) (75-99) mg/dL Calcium 7.3 L (8.4-10.2) mg/dL AST 39 H (14-36) U/L Lactate Dehydrogenase 1453 H (313-618) U/L C-Reactive Protein 80.1 H (<10.0) mg/L Total Protein 4.6 L (6.3-8.2) g/dL Albumin 2.3 L (3.5-5.0) g/dL 09/09/20 09/09/20 09/09/20 Range/Units 05:54 11:22 11:36 RBC (3.80-5.40) m/uL Hgb (11.4-16.0) gm/dL Hct (34.0-46.0) % Neutrophils # (1.3-7.7) k/uL Lymphocytes # (1.0-4.8) k/uL D-Dimer (<0.60) mg/L FEU Chloride (98-107) mmol/L Glucose (74-99) mg/dL POC Glucose (mg/dL) 181 H 191 H 190 H (75-99) mg/dL Calcium (8.4-10.2) mg/dL AST (14-36) U/L Lactate Dehydrogenase (313-618) U/L C-Reactive Protein (<10.0) mg/L Total Protein (6.3-8.2) g/dL Albumin (3.5-5.0) g/dL Microbiology - Last 24 Hours (Table) 09/05/20 18:45 Blood Culture - Preliminary Blood No Growth after 72 hours 09/05/20 19:00 Blood Culture - Preliminary Blood No Growth after 72 hours Assessment and Plan Assessment: #1. Acute hypoxic respiratory failure related to acute COVID 19 pneumonia, patient was admitted to the hospital on 09/05/2020, transfer to the intensive care unit on 09/07/2020 and intubated on 09/07/2020, will receive a dose of Actemra 1, and, convalescent plasma 1 on 09/07/2020 #2. Increased d-dimer related to the above with no CT evidence of pulmonary embolism #3. Increased inflammatory markers #4. Hypertension #5. Hypothyroidism #6. Never smoker #7. IBS #8. Raynaud's Plan: Plan dated 09/09/2020. Currently, the patient remains on the chemical ventilator. We'll attempt to get her off the Nimbex today. The patient's blood gases are reasonable, although she is on FiO2 percent, and PEEP of 18. We will continue to follow make recommendations were appropriate. She's on appropriate medications including corticosteroids, and vitamins. In addition, she is being nourished and really at goal. Additional recommendations and suggestions are forthcoming. Prognosis is guarded. The patient has received convalescent plasma, as well as TOCI. Time with Patient: Greater than 30
[2020-09-09] MEDS: lisinopriL 5 MG TAB PO SCH ×2 (14:20→21:50)
--- NOTE | 2020-09-09 16:07 | P.PN ---
Progress Note - Text Progress Note Date: 09/09/20 Chief Complaint: Difficulty breathing/COVID positive History of presenting complaint 65-year-old female , whose PCP is Dr. Haq, states she's been exposed to Covid 19 from both her son and daughter who states she's had symptoms similar today for last 8 days which include nausea vomiting recently diarrhea rhinorrhea no overt shortness of breath she does have a cough also a fever and generalized weakness. decreased oral intake. She is here just because she is profoundly weak at this time. Not able to keep fluids down. Admitted with COVID 19 pneumonia. Acute hypoxic respiratory failure. Patient was given convalescent plasma. Dexamethasone, September 07: into respiratory distress. intubated. Given ACTEMRA. Convalescent plasma. , Today: ICU: Drips include: Propofol, fentanyl, Nimbex. Ventilator: 70% with a PEEP of 18 ;tube feeding at 29 mL an hour. Sinus rhythm. OG tube and endotracheal tube. Review of systems: Patient intubated Active Medications Acetaminophen (Acetaminophen Tab 325 Mg Tab) 650 mg PO Q6HR PRN PRN Reason: Mild Pain or Fever > 100.5 Last Admin: 09/06/20 12:25 Dose: 650 mg Documented by: Albuterol Sulfate (Albuterol Hfa Inhaler) 2 puff INHALATION RT-QID PRN PRN Reason: Shortness Of Breath Or Wheezing Albuterol Sulfate (Albuterol Hfa Inhaler) 4 puff INHALATION RT-QID [facility] Last Admin: 09/09/20 11:38 Dose: 4 puff Documented by: Amlodipine Besylate (Amlodipine 5 Mg Tab) 5 mg PO DAILY@1400 [facility] Last Admin: 09/08/20 14:51 Dose: 5 mg Documented by: Artificial Tears (Artificial Tears-Hypromellose Drops 15 Ml Btl) 1 drops BOTH EYES Q4H [facility] Last Admin: 09/09/20 12:37 Dose: Not Given Documented by: Ascorbic Acid (Ascorbic Acid 500 Mg Tab) 1,000 mg PO DAILY [facility] Last Admin: 09/09/20 08:00 Dose: 1,000 mg Documented by: Aspirin (Aspirin 81 Mg) 81 mg PO [facility] Last Admin: 09/08/20 20:02 Dose: 81 mg Documented by: Atorvastatin Calcium (Atorvastatin 20 Mg Tab) 20 mg PO [facility] Last Admin: 09/08/20 20:00 Dose: 20 mg Documented by: Chlorhexidine Gluconate (Chlorhexidine Gluconate 15 Ml Cup) 15 ml MUCOUS MEM BID [facility] Last Admin: 09/09/20 08:00 Dose: 15 ml Documented by: Cholecalciferol (Cholecalciferol 25 Mcg (1000 Iu) Tablet) 125 mcg PO DAILY [facility] Last Admin: 09/09/20 07:59 Dose: 125 mcg Documented by: Citalopram Hydrobromide (Citalopram Hydrobromide 20 Mg Tab) 40 mg PO DAILY [facility] Last Admin: 09/09/20 07:59 Dose: 40 mg Documented by: Enoxaparin Sodium (Enoxaparin 40 Mg/0.4 Ml Syringe) 40 mg SQ DAILY [facility] Last Admin: 09/09/20 08:00 Dose: 40 mg Documented by: Sodium Chloride (Saline 0.9%) 1,000 mls @ 130 mls/hr IV .Q7H42M [facility] Last Admin: 09/09/20 04:29 Dose: 130 mls/hr Documented by: Propofol 1,000 mg/ IV Solution 100 mls @ 0 mls/hr IV .Q0M [facility]; Protocol Last Admin: 09/09/20 12:37 Dose: 50 mcg/kg/min, 22.98 mls/hr Documented by: Cisatracurium Besylate 200 mg/ (Sodium Chloride) 200 mls @ 3.81 mls/hr IV .Q24H [facility]; Protocol Last Admin: 09/09/20 09:25 Dose: 1.45 mcg/kg/min, 5.525 mls/hr Documented by: Fentanyl Citrate 1,000 mcg/ (Sodium Chloride) 100 mls @ 0 mls/hr IV .Q0M [facility]; Protocol Last Titration: 09/09/20 09:35 Dose: 2 mcg/kg/hr, 12.701 mls/hr Documented by: Insulin Aspart (Insulin Aspart (Novolog) 100 Unit/Ml Vial) 0 unit SQ Q6H [facility]; Protocol Last Admin: 09/09/20 12:37 Dose: 5 unit Documented by: Levothyroxine Sodium (Levothyroxine 75 Mcg Tab) 75 mcg PO [id number]@0630 [facility] Last Admin: 09/09/20 06:15 Dose: 75 mcg Documented by: Levothyroxine Sodium (Levothyroxine 75 Mcg Tab) 37.5 mcg PO SA [facility] Last Admin: 09/05/20 22:56 Dose: 37.5 mcg Documented by: Lisinopril (Lisinopril 5 Mg Tab) 10 mg PO DAILY [facility] Last Admin: 09/09/20 14:20 Dose: Not Given Documented by: Lisinopril (Lisinopril 5 Mg Tab) 5 mg PO [facility] Last Admin: 09/08/20 20:00 Dose: 5 mg Documented by: Loratadine (Loratadine 10 Mg Tab) 10 mg PO [facility] Last Admin: 09/08/20 20:00 Dose: 10 mg Documented by: Melatonin (Melatonin 5 Mg Tablet) 5 mg PO [facility] Last Admin: 09/08/20 20:00 Dose: 5 mg Documented by: Methylprednisolone Sodium Succinate (Methylprednisolone Sod Succi 125 Mg/2 Ml Vial) 60 mg IV Q6HR [facility] Last Admin: 09/09/20 12:36 Dose: 60 mg Documented by: Metoprolol Tartrate (Metoprolol Tartrate 50 Mg Tab) 100 mg PO DAILY [facility] Last Admin: 09/09/20 10:03 Dose: 100 mg Documented by: Miscellaneous Information (Potassium Replacement Protocol 1 Each Misc) 1 each MISCELLANE DAILY PRN; Protocol PRN Reason: Per Protocol Montelukast Sodium (Montelukast 10 Mg Tab) 10 mg PO [facility] Last Admin: 09/08/20 20:00 Dose: 10 mg Documented by: Multivitamins (Multivitamins, Thera 1 Each Tab) 1 each PO [facility] Last Admin: 09/08/20 20:00 Dose: 1 each Documented by: Naloxone HCl (Naloxone 0.4 Mg/Ml 1 Ml Vial) 0.2 mg IV Q2M PRN PRN Reason: Opioid Reversal Pantoprazole Sodium (Pantoprazole 40 Mg Tablet) 40 mg PO BID [facility] Last Admin: 09/09/20 07:59 Dose: 40 mg Documented by: Zinc Sulfate (Zinc Sulfate 220 Mg Cap) 220 mg PO DAILY [facility] Last Admin: 09/09/20 07:59 Dose: 220 mg Documented by: On examination: VITAL SIGNS: 98.3, 68, 28, 146/72, 93% on the ventilator GENERAL APPEARANCE: laying in bed, intubated . ETT, O-tube HEENT: Endotracheal tube PSYCHIATRY: Unable to assess Rest of exam as per pulmonary nursing INVESTIGATIONS, reviewed in the clinical context: September 09: WBC 10.5 hemoglobin 9 at bedtime 352 d-dimer 3.0 potassium 4.2 creatinine 0.59 CRP 80.1 September 08: WBC 5.4 hemoglobin 8.8 platelets 237 d-dimer 1.67. Potassium 3.3 creatinine 0.53 CRP 216 September 07: WBC 5.7 hemoglobin 9.2 platelets 250 potassium 3.8 creatinine 0.73 troponin I 0.084 albumin 2.6 Chest x-ray film personally reviewed by me-[September 07: Bilateral infiltrates, confluent more so in the lower zones and metolazone EKG tracing personally reviewed by me-normal sinus rhythm. Nonspecific changes CT Malcolm chest: Extensive bilateral infiltrates with adenopathy. No PE Admission labs: Troponin I less than 0.012 Assessment and plan Acute hypoxic respiratory not improving - intubated on September 07. On the ventilator-70% Interstitial pneumonia secondary to COVID-19: Not improving -Receiving Lovenox, dexamethasone, vitamin C vitamin D, Pepcid, zinc. Received ACTEMRA and convalescent plasma Hypothyroidism; - levothyroxine 75 MCG daily Essential Hypertension; - continue with home dose of metoprolol 100 mg daily, lisinopril 5 mg daily, Norvasc 10 mg daily Hyperlipidemia; -continue with home statin therapy Asthma; not in exacerbation; -continue singular 10 mg daily home inhaler therapy GERD: - Continue with PPI Irritable bowel syndrome: -Follow clinically Raynauds phenomenon. - Follow clinically Diabetes mellitus type 2; -hold metformin. Follow Accu-Cheks. Normocytic anemia. -Follow H&H Acute hypoalbuminemia: -Acute phase reactant Obesity BMI 31.4 -To follow outpatient for weight loss measures CODE STATUS; full code Patient remains rather critically ill. In the ICU. Intubated.
[2020-09-09 17:51] LABS: Glucose,Whole Blood 172 mg/dL (75-99)
[2020-09-09] MEDS: amLODIPine 5 MG TAB PO SCH (18:05)
[2020-09-09] MEDS: ASPIRIN 81 MG PO SCH (21:38)
[2020-09-09] MEDS: ATORVASTATIN 20 MG TAB PO SCH (21:39)
[2020-09-09] MEDS: MULTIVITAMINS, THERA 1 EACH TAB PO SCH (21:39)
[2020-09-09] MEDS: MONTELUKAST 10 MG TAB PO SCH (21:39)
[2020-09-09] MEDS: MELATONIN 5 MG TABLET PO SCH (21:50)
[2020-09-09] MEDS: LORATADINE 10 MG TAB PO SCH (21:50)
[2020-09-10] MEDS: fentaNYL (PF) 1,000 MCG in SODIUM CHLORIDE 0.9% 80 ML IV SCH ×4 (01:26→23:31)
[2020-09-10 01:32] LABS: Glucose,Whole Blood 179 mg/dL (75-99)
[2020-09-10] MEDS: INSULIN ASPART (NovoLOG) 100 UNIT/ML VIAL SQ SCH ×4 (01:56→18:26)
[2020-09-10] MEDS: ARTIFICIAL TEARS-HYPROMELLOSE DROPS 15 ML BTL BOTH EYES SCH ×6 (01:56→20:28)
[2020-09-10] MEDS: methylPREDNISolone SOD SUCCI 125 MG/2 ML VIAL IV SCH ×4 (01:56→18:26)
[2020-09-10 04:16] LABS: Basophils % (A) 0 %; Eosinophils % (A) 0 %; HCT 25.9 % (34.0-46.0); HGB 8.8 gm/dL (11.4-16.0); Lymphocytes # (A) 1.1 k/uL (1.0-4.8); Lymphocytes % (A) 8 %; MCH 29.3 pg (25.0-35.0); MCV 86.3 fL (80.0-100.0); Mean Platelet Volume 7.6; Monocytes # (A) 0.5 k/uL (0-1.0); Monocytes % (A) 4 %; Neutrophils # (A) 10.8 k/uL (1.3-7.7); Neutrophils % (A) 85 %; Platelet Count 360 k/uL (150-450); RDW 13.7 % (11.5-15.5); WBC 12.7 k/uL (3.8-10.6)
[2020-09-10 04:17] LABS: African American GFR (CKD) >90 (>60 ml/min/1.73 sqM); Anion Gap 5 mmol/L; Blood Urea Nitrogen 21 mg/dL (7-17); Carbon Dioxide 21 mmol/L (22-30); Chloride 118 mmol/L (98-107); Glucose 152 mg/dL (74-99); Potassium 4.2 mmol/L (3.5-5.1); Sodium 144 mmol/L (137-145)
[2020-09-10 04:18] LABS: ALT 24 U/L (4-34); AST 36 U/L (14-36); Albumin 2.3 g/dL (3.5-5.0); Alkaline Phosphatase 83 U/L (38-126); Calcium 7.6 mg/dL (8.4-10.2); Creatine Kinase 72 U/L (30-135); LDH 1386 U/L (313-618); Non-African American GFR(CKD) >90 (>60 ml/min/1.73 sqM); Total Bilirubin 0.3 mg/dL (0.2-1.3); Total Protein 4.5 g/dL (6.3-8.2)
[2020-09-10 05:02] LABS: D-Dimer 10.5 mg/L FEU (<0.60)
[2020-09-10 05:33] LABS: ABG Base Excess -2.8 mmol/L; ABG HCO3 22 mmol/L (21-25); ABG PCO2 38 mmHg (35-45); ABG PH 7.38 (7.35-7.45); ABG PO2 69 mmHg (83-108); ABG TCO2 23 mmol/L (19-24)
[2020-09-10 05:54] LABS: Allen Test Performed? no
[2020-09-10 06:04] LABS: Glucose,Whole Blood 179 mg/dL (75-99)
[2020-09-10] MEDS: LEVOTHYROXINE 75 MCG TAB PO SCH (06:22)
[2020-09-10] MEDS: SODIUM CHLORIDE 0.9% 1,000 ML IV SCH ×4 (06:23→23:05)
[2020-09-10] MEDS: CISATRACURIUM 200 MG in SODIUM CHLORIDE 0.9% 180 ML IV SCH (06:24)
--- NOTE | 2020-09-10 07:11 | XR ---
EXAMINATION TYPE: XR chest 1V portable DATE OF EXAM: 09/10/2020 COMPARISON: 09/09/2020 HISTORY: SOB, Follow Up FINDINGS: Indwelling tubes and catheters are unchanged. Persistent but slightly improved left perihilar and basilar infiltrates. Stable appearance of the cardio-mediastinal structures at this time. IMPRESSION: 1. Persistent but slightly improved left perihilar and basilar infiltrates. Clinical correlation and follow up until resolution is recommended.
[2020-09-10] MEDS: ALBUTEROL HFA INHALER INHALATION SCH ×4 (07:38→19:13)
[2020-09-10] MEDS ORDERED: FUROSEMIDE 10 MG/ML 4 ML VIAL IV STA (08:49)
[2020-09-10] MEDS ORDERED: LACTULOSE 20 GM/30 ML CUP PO SCH (09:00)
--- NOTE | 2020-09-10 09:04 | P.PN ---
Subjective Progress Note Date: 09/10/20 Principal diagnosis: Abnormal cardiac enzymes This is a 65-year-old female patient with hypertension and dyslipidemia was admitted to the hospital with acute hypoxic respiratory failure secondary to COVID-19 infection. We consulted to see the patient because of mildly abnormal troponin. The patient was seen today per liter of 2020. She remains intubated on mechanical ventilation. The pressure is elevated. With that being seated on going to increase the dose of lisinopril to 20 mg by mouth daily. We'll continue the conservative medical approach regarding mildly abnormal troponin. We'll continue following up with the patient. Objective - Vital Signs Vital signs: Vital Signs Temp 98.3 F 09/10/20 04:00 Pulse 59 L 09/10/20 07:00 Resp 28 H 09/10/20 07:00 BP 131/69 09/09/20 23:00 Pulse Ox 94 L 09/10/20 07:00 Intake & Output 09/09/20 09/10/20 09/10/20 18:59 06:59 18:59 Intake Total 2394.166 2517.108 159 Output Total 670 610 60 Balance 1529.360 3016.108 99 Weight 76.6 kg 82 kg Intake: IV 1560 1560 130 Sodium Chloride 0.9% 1, 1560 1560 130 000 ml @ 130 mls/hr IV . Q7H42M [facility] Rx#:[id number] Intake, IV Titration 542.166 519.108 Amount Cisatracurium 200 mg In 156.081 132.204 Sodium Chloride 0.9% 180 ml @ 1 MCG/KG/MIN 3.81 mls/hr IV .Q24H [facility] Rx#: [id number] fentaNYL (PF) 1,000 mcg 118.415 100 In Sodium Chloride 0.9% 80 ml @ Per Protocol IV . Q0M [facility] Rx#:[id number] propofoL 1,000 mg In 267.670 286.904 Empty Bag 1 bag @ Titrate IV .Q0M [facility] Rx#: [id number] Tube Feeding 232 348 29 Other 60 90 Output: Urine 670 610 60 Other: Voiding Method Indwelling Catheter Indwelling Catheter ABP, PAP, CO, CI - Last Documented Arterial Blood Pressure 159/73 - Labs CBC & Chem 7: 09/10/20 03:35 09/10/20 03:35 Labs: Abnormal Lab Results - Last 24 Hours (Table) 09/09/20 09/09/20 09/09/20 Range/Units 11:22 11:36 17:50 WBC (3.8-10.6) k/uL RBC (3.80-5.40) m/uL Hgb (11.4-16.0) gm/dL Hct (34.0-46.0) % Neutrophils # (1.3-7.7) k/uL D-Dimer (<0.60) mg/L FEU ABG pO2 (83-108) mmHg ABG O2 Saturation (94-97) % Chloride (98-107) mmol/L Carbon Dioxide (22-30) mmol/L BUN (7-17) mg/dL Glucose (74-99) mg/dL POC Glucose (mg/dL) 191 H 190 H 172 H (75-99) mg/dL Calcium (8.4-10.2) mg/dL Lactate Dehydrogenase (313-618) U/L C-Reactive Protein (<10.0) mg/L Total Protein (6.3-8.2) g/dL Albumin (3.5-5.0) g/dL 09/10/20 09/10/20 09/10/20 Range/Units 01:31 03:35 03:35 WBC (3.8-10.6) k/uL RBC (3.80-5.40) m/uL Hgb (11.4-16.0) gm/dL Hct (34.0-46.0) % Neutrophils # (1.3-7.7) k/uL D-Dimer 10.50 H (<0.60) mg/L FEU ABG pO2 (83-108) mmHg ABG O2 Saturation (94-97) % Chloride 118 H (98-107) mmol/L Carbon Dioxide 21 L (22-30) mmol/L BUN 21 H (7-17) mg/dL Glucose 152 H (74-99) mg/dL POC Glucose (mg/dL) 179 H (75-99) mg/dL Calcium 7.6 L (8.4-10.2) mg/dL Lactate Dehydrogenase 1386 H (313-618) U/L C-Reactive Protein 33.0 H (<10.0) mg/L Total Protein 4.5 L (6.3-8.2) g/dL Albumin 2.3 L (3.5-5.0) g/dL 09/10/20 09/10/20 09/10/20 Range/Units 03:35 05:32 06:02 WBC 12.7 H (3.8-10.6) k/uL RBC 3.00 L (3.80-5.40) m/uL Hgb 8.8 L (11.4-16.0) gm/dL Hct 25.9 L (34.0-46.0) % Neutrophils # 10.8 H (1.3-7.7) k/uL D-Dimer (<0.60) mg/L FEU ABG pO2 69 L (83-108) mmHg ABG O2 Saturation 93.0 L (94-97) % Chloride (98-107) mmol/L Carbon Dioxide (22-30) mmol/L BUN (7-17) mg/dL Glucose (74-99) mg/dL POC Glucose (mg/dL) 179 H (75-99) mg/dL Calcium (8.4-10.2) mg/dL Lactate Dehydrogenase (313-618) U/L C-Reactive Protein (<10.0) mg/L Total Protein (6.3-8.2) g/dL Albumin (3.5-5.0) g/dL Microbiology - Last 24 Hours (Table) 09/05/20 18:45 Blood Culture - Preliminary Blood No Growth after 96 hours 09/05/20 19:00 Blood Culture - Preliminary Blood No Growth after 96 hours Assessment and Plan Assessment: Assessment #1 acute hypoxic respiratory failure secondary to COVID-19 pneumonia #2 mildly abnormal troponin #3 hypertension #4 dyslipidemia #5 multiple comorbid conditions Plan #1 consider conservative medical approach at this point #2 continue the current medical regimen #3 the echo was reviewed and revealed normal LV function without any wall motion abnormalities. #4 increase the dose of lisinopril to 20 mg by mouth daily
[2020-09-10] MEDS: ENOXAPARIN 40 MG/0.4 ML SYRINGE SQ SCH ×2 (09:12→21:06)
[2020-09-10] MEDS: METOPROLOL TARTRATE 50 MG TAB PO SCH (09:13)
[2020-09-10] MEDS: PANTOPRAZOLE 40 MG TABLET PO SCH (09:13)
[2020-09-10] MEDS: CITALOPRAM HYDROBROMIDE 20 MG TAB PO SCH (09:13)
[2020-09-10] MEDS: ASCORBIC ACID 500 MG TAB PO SCH (09:13)
[2020-09-10] MEDS: CHOLECALCIFEROL 25 MCG (1000 IU) TABLET PO SCH (09:14)
[2020-09-10] MEDS: CHLORHEXIDINE GLUCONATE 15 ML CUP MUCOUS MEM SCH ×2 (09:14→21:07)
[2020-09-10] MEDS: ZINC SULFATE 220 MG CAP PO SCH (09:14)
[2020-09-10 10:28] LABS: Ferritin 167.4 ng/mL (10.0-291.0)
--- NOTE | 2020-09-10 11:05 | P.PN ---
Subjective Progress Note Date: 09/10/20 Principal diagnosis: Acute hypoxemic respiratory failure 65-year-old white female patient of Dr. Haq with past medical history of hypertension, hypothyroidism, IBS, hiatal hernia, renal disorder, who presented to the emergency department on 09/05/2020 with symptoms of nausea, vomiting, diarrhea, she reported some cough, fever and generalized weakness, but no overt shortness of breath. Patient had exposure to COVID 19 from her son and daughter. Patient had decreased oral intake, she came in with profound generalized weakness and not being able to keep fluids down. Chest x-ray showed bilateral patchy airspace pneumonia, COVID 19 PCR was positive. Patient was lymphopenic with lymphocytic 0.9, white blood cell count is 3.5, hemoglobin is 12.5, d-dimer 0.61, troponin was less than 0.012, pro calcitonin level was 0.07. LDH was 1550, CRP is 130.8, ferritin level is 337.5. Presentation patient was severely hypoxic, with O2 saturations in the low 80s on 100% FiO2. Blood gas was obtained showing pO2 of 44, pCO2 of 36, pH of 7.46, patient was intubated and placed on mechanical ventilator. She is currently sedated and paralyzed, and on assist control mode of ventilation with a rate of 28, tacrolimus 400, FiO2 100%, and PEEP of 14. This morning blood gases showed pO2 of 50, pCO2 36, and pH of 7.44. Currently patient sedated and paralyzed on [facility] ventilator. 0.9 at 130 in the per hour, and Nimbex is at 2 mics per kilo per minute, Diprivan is a 50 mics per kilo per minute, and fentanyl drip is currently is 1 mcg/kg/m. Patient has been started on IV steroids 60 mg every 6 hours of Solu-Medrol, she is on Lovenox 40 mg daily. She'll be given a dose of convalescent plasma and she is awaiting a dose of Tocili. Follow-up chest x-ray today shows increased bilateral patchy opacities, and trace right pleural effusion. CTA chest was completed showing no evidence of pulmonary embolism. On 09/08/2020 patient seen in follow-up in the intensive care units. She remains sedated, intubated, currently on assist control with a rate of 20s, tidal volume is 450, FiO2 70%, and PEEP of 18, this morning blood gases show pO2 of 63, pCO2 33, pH is 7.38. Patient is currently on 0.9 at 130 and no per hour, Diprivan is a 35 mics per kilo per minute, fentanyl drip is at 1 adam per kilo per minute, and Nexium is at 1.45 mics per kilo per minute. She is noted to be hypothermic early this morning with a temp of 93.4F. White blood cell count is 5.4, hemoglobin is 8.8, facet, 0.8, d-dimer is 1.67, sodium is 139, potassium is 3.3, chloride is 114, CO2 is 19, BUN is 13, creatinine 0.53, CRP is 216, AST is 40, ALT is 19, alkaline phosphatase is 80, troponin was less than 0.012. LDH is pending today. Progesterone level was negative at 0.07, urinalysis showed no evidence of infection. Blood cultures were negative. She remains on Lovenox 40 mg twice daily, IV Solu-Medrol 60 g every 6 hours, she received 480 mg of Tocilizumab. Received 1 unit of convalescent plasma. She is receiving nutritional support in the form of vital HP at 20 with a goal of 29. Has been tolerating tube feedings, fluid boluses were given yesterday, she still continues on 0.9 NS at 130 ML per hour and her urine output is marginal, and patient will receive additional liter fluid bolus Progress note dated 09/09/2020. 65-year-old female, seen again today in room 263. She remains on mechanical ventilator. She is on the volume assist control mode, rate of 28, tidal volume 400, FiO2 70%, and a PEEP of 18. Blood gases show pO2 of 83, pCO2 of 37, and a pH is 7.37. Currently, she is on propofol at 50 g kilogram per minute, fentanyl 1 mcg/kg/h, Nimbex at 1.5 mcg/kg/m, saline at 130 mL an hour, vital high protein at 29 mL an hour, which is goal. We will attempt to get her off the Nimbex today if possible. White count 10.5, hemoglobin 9, hematocrit 26.6, platelet count 352,000. D-dimer is 3. Sodium 144, potassium 4.2, chlorides 118, CO2 22, anion gap 4, BUN 17, creatinine 0.59. Calcium 7.3. LDH 1453, and C-reactive protein is 80.1. Chest x-ray shows diffuse bilateral airspace disease which is stable. Progress note dated 09/10/2020. The patient is again seen in the intensive care unit, room 263. She remains on mechanical ventilation. She is on the volume assist control mode, rate 28, tidal volume 400, FiO2 70%, and PEEP of 18. Arterial blood gases show a PaO2 of 69, PaCO2 of 38, and a pH of 7.38. The patient's getting propofol at 50 mcg/kg/m, fentanyl at 2 mcg/kg/h, Nimbex at 2 mcg/kg/m, saline, at 130 mL an hour, to be reduced to 75 mL an hour, Lasix 40 mg IV push 1, and vital high protein at goal, which is 29 mL an hour. Addition, she'll be placed on Lovenox 40 mg subcu twice a day. White count 12.7, hemoglobin 8.8, hematocrit 25.9, platelet count 360,000. D-dimer is 10.50. Sodium 144, potassium 4.2, chlorides 118, CO2 21, anion gap is 5, BUN 21, and creatinine 0.63. LDH is 1386. C- reactive protein is 33. Chest x-ray shows persistent but slightly improved bilateral infiltrates. Objective - Vital Signs Vital signs: Vital Signs Temp 98.3 F 09/10/20 04:00 Pulse 59 L 09/10/20 07:00 Resp 28 H 09/10/20 07:00 BP 131/69 09/09/20 23:00 Pulse Ox 94 L 09/10/20 07:00 Intake & Output 09/09/20 09/10/20 09/10/20 18:59 06:59 18:59 Intake Total 2394.166 2517.108 332.964 Output Total 670 610 60 Balance 2486.739 5350.108 272.964 Weight 76.6 kg 82 kg Intake: IV 1560 1560 130 Sodium Chloride 0.9% 1, 1560 1560 130 000 ml @ 130 mls/hr IV . Q7H42M [facility] Rx#:[id number] Intake, IV Titration 542.166 519.108 173.964 Amount Cisatracurium 200 mg In 156.081 132.204 Sodium Chloride 0.9% 180 ml @ 1 MCG/KG/MIN 3.81 mls/hr IV .Q24H [facility] Rx#: [id number] fentaNYL (PF) 1,000 mcg 118.415 100 99.279 In Sodium Chloride 0.9% 80 ml @ Per Protocol IV . Q0M [facility] Rx#:[id number] propofoL 1,000 mg In 267.670 286.904 74.685 Empty Bag 1 bag @ Titrate IV .Q0M [facility] Rx#: [id number] Tube Feeding 232 348 29 Other 60 90 Output: Urine 670 610 60 Other: Voiding Method Indwelling Catheter Indwelling Catheter ABP, PAP, CO, CI - Last Documented Arterial Blood Pressure 159/73 - Exam No acute distress, oriented 3. The patient is sedated and intubated and on the mechanical ventilator. She is also chemically paralyzed. HEENT examination is grossly unremarkable. Orally placed endotracheal tube is noted. Neck supple. Full range of motion. No adenopathy thyromegaly or neck vein distention. Cardiovascular examination reveals regular rhythm rate. S1-S2 normal. No S3 or S4. No discernible murmur noted. Heart rate 59 bpm. Lungs reveal bilateral coarse rhonchi, and by basilar crackles. Breath sounds equal bilaterally. There are no wheezes. Abdomen soft bowel sounds are heard. No masses or tenderness. Extremities are intact. No cyanosis clubbing or edema. Skin is without rash or lesion. Neurologic examination is difficult to evaluate because of patient's currently sedated and paralyzed. - Labs CBC & Chem 7: 09/10/20 03:35 09/10/20 03:35 Labs: Abnormal Lab Results - Last 24 Hours (Table) 09/09/20 09/09/20 09/09/20 Range/Units 11:22 11:36 17:50 WBC (3.8-10.6) k/uL RBC (3.80-5.40) m/uL Hgb (11.4-16.0) gm/dL Hct (34.0-46.0) % Neutrophils # (1.3-7.7) k/uL D-Dimer (<0.60) mg/L FEU ABG pO2 (83-108) mmHg ABG O2 Saturation (94-97) % Chloride (98-107) mmol/L Carbon Dioxide (22-30) mmol/L BUN (7-17) mg/dL Glucose (74-99) mg/dL POC Glucose (mg/dL) 191 H 190 H 172 H (75-99) mg/dL Calcium (8.4-10.2) mg/dL Lactate Dehydrogenase (313-618) U/L C-Reactive Protein (<10.0) mg/L Total Protein (6.3-8.2) g/dL Albumin (3.5-5.0) g/dL 09/10/20 09/10/20 09/10/20 Range/Units 01:31 03:35 03:35 WBC (3.8-10.6) k/uL RBC (3.80-5.40) m/uL Hgb (11.4-16.0) gm/dL Hct (34.0-46.0) % Neutrophils # (1.3-7.7) k/uL D-Dimer 10.50 H (<0.60) mg/L FEU ABG pO2 (83-108) mmHg ABG O2 Saturation (94-97) % Chloride 118 H (98-107) mmol/L Carbon Dioxide 21 L (22-30) mmol/L BUN 21 H (7-17) mg/dL Glucose 152 H (74-99) mg/dL POC Glucose (mg/dL) 179 H (75-99) mg/dL Calcium 7.6 L (8.4-10.2) mg/dL Lactate Dehydrogenase 1386 H (313-618) U/L C-Reactive Protein 33.0 H (<10.0) mg/L Total Protein 4.5 L (6.3-8.2) g/dL Albumin 2.3 L (3.5-5.0) g/dL 09/10/20 09/10/20 09/10/20 Range/Units 03:35 05:32 06:02 WBC 12.7 H (3.8-10.6) k/uL RBC 3.00 L (3.80-5.40) m/uL Hgb 8.8 L (11.4-16.0) gm/dL Hct 25.9 L (34.0-46.0) % Neutrophils # 10.8 H (1.3-7.7) k/uL D-Dimer (<0.60) mg/L FEU ABG pO2 69 L (83-108) mmHg ABG O2 Saturation 93.0 L (94-97) % Chloride (98-107) mmol/L Carbon Dioxide (22-30) mmol/L BUN (7-17) mg/dL Glucose (74-99) mg/dL POC Glucose (mg/dL) 179 H (75-99) mg/dL Calcium (8.4-10.2) mg/dL Lactate Dehydrogenase (313-618) U/L C-Reactive Protein (<10.0) mg/L Total Protein (6.3-8.2) g/dL Albumin (3.5-5.0) g/dL Microbiology - Last 24 Hours (Table) 09/05/20 18:45 Blood Culture - Preliminary Blood No Growth after 96 hours 09/05/20 19:00 Blood Culture - Preliminary Blood No Growth after 96 hours Assessment and Plan Assessment: #1. Acute hypoxic respiratory failure related to acute COVID 19 pneumonia, patient was admitted to the hospital on 09/05/2020, transfer to the intensive c are unit on 09/07/2020 and intubated on 09/07/2020, will receive a dose of Actemra 1, and, convalescent plasma 1 on 09/07/2020 #2. Increased d-dimer related to the above with no CT evidence of pulmonary embolism #3. Increased inflammatory markers #4. Hypertension #5. Hypothyroidism #6. Never smoker #7. IBS #8. Raynaud's Plan: Plan dated 09/09/2020. Currently, the patient remains on the chemical ventilator. We'll attempt to get her off the Nimbex today. The patient's blood gases are reasonable, although she is on FiO2 percent, and PEEP of 18. We will continue to follow make recommendations were appropriate. She's on appropriate medications including corticosteroids, and vitamins. In addition, she is being nourished and really at goal. Additional recommendations and suggestions are forthcoming. Prognosis is guarded. The patient has received convalescent plasma, as well as TOCI. Plan dated 09/10/2020. The patient remains on the mechanical ventilator. Vent settings as above. She remains on propofol, fentanyl, and Nimbex. We will drop the IV rate from 1:30 down to 75 mL an hour. We'll also give her Lasix 40 mg IV push. She remains on tube feeds at goal. She's getting Lovenox 40 mg subcu twice a day. Additional recommendations and suggestions are forthcoming. Prognosis is guarded. She has not made much progress since being here in the intensive care unit. She did receive convalescent plasma and TOCI. Time with Patient: Greater than 30
[2020-09-10 13:00] LABS: Glucose,Whole Blood 189 mg/dL (75-99)
[2020-09-10] MEDS: CLEVIDIPINE BUTYRATE 25 MG in EMPTY BAG 1 BAG IV SCH (13:44)
[2020-09-10] MEDS: amLODIPine 5 MG TAB PO SCH (14:49)
[2020-09-10 18:07] LABS: Glucose,Whole Blood 190 mg/dL (75-99)
[2020-09-10] MEDS ORDERED: LACTULOSE 20 GM/30 ML CUP PO PRN (19:05)
[2020-09-10] MEDS: MELATONIN 5 MG TABLET PO SCH (20:35)
[2020-09-10] MEDS: PANTOPRAZOLE 40 MG/10 ML VIAL IVP SCH (21:06)
[2020-09-10] MEDS: MULTIVITAMINS, THERA 1 EACH TAB PO SCH (21:07)
[2020-09-10] MEDS: MONTELUKAST 10 MG TAB PO SCH (21:07)
[2020-09-10] MEDS: ATORVASTATIN 20 MG TAB PO SCH (21:07)
[2020-09-10] MEDS: ASPIRIN 81 MG PO SCH (21:07)
[2020-09-10] MEDS: LORATADINE 10 MG TAB PO SCH (21:07)
--- NOTE | 2020-09-10 21:15 | P.PN ---
Progress Note - Text Progress Note Date: 09/10/20 Chief Complaint: Difficulty breathing/COVID positive History of presenting complaint 65-year-old female , whose PCP is Dr. Haq, states she's been exposed to Covid 19 from both her son and daughter who states she's had symptoms similar today for last 8 days which include nausea vomiting recently diarrhea rhinorrhea no overt shortness of breath she does have a cough also a fever and generalized weakness. decreased oral intake. She is here just because she is profoundly weak at this time. Not able to keep fluids down. Admitted with COVID 19 pneumonia. Acute hypoxic respiratory failure. Patient was given convalescent plasma. Dexamethasone, September 07: into respiratory distress. intubated. Given ACTEMRA. Convalescent plasma. , Today: ICU: Drips include: Propofol, fentanyl, Nimbex. Ventilator: 70% with a PEEP of 18 ;tube feeding at 29 mL an hour. Sinus rhythm. OG tube and endotracheal tube. Review of systems: Patient intubated Active Medications Acetaminophen (Acetaminophen Tab 325 Mg Tab) 650 mg PO Q6HR PRN PRN Reason: Mild Pain or Fever > 100.5 Last Admin: 09/06/20 12:25 Dose: 650 mg Documented by: Albuterol Sulfate (Albuterol Hfa Inhaler) 2 puff INHALATION RT-QID PRN PRN Reason: Shortness Of Breath Or Wheezing Albuterol Sulfate (Albuterol Hfa Inhaler) 4 puff INHALATION RT-QID [facility] Last Admin: 09/10/20 19:13 Dose: 4 puff Documented by: Amlodipine Besylate (Amlodipine 5 Mg Tab) 5 mg PO DAILY@1400 [facility] Last Admin: 09/10/20 14:49 Dose: Not Given Documented by: Artificial Tears (Artificial Tears-Hypromellose Drops 15 Ml Btl) 1 drops BOTH EYES Q4H [facility] Last Admin: 09/10/20 20:28 Dose: 1 drops Documented by: Ascorbic Acid (Ascorbic Acid 500 Mg Tab) 1,000 mg PO DAILY [facility] Last Admin: 09/10/20 09:13 Dose: 1,000 mg Documented by: Aspirin (Aspirin 81 Mg) 81 mg PO [facility] Last Admin: 09/09/20 21:38 Dose: 81 mg Documented by: Atorvastatin Calcium (Atorvastatin 20 Mg Tab) 20 mg PO [facility] Last Admin: 09/09/20 21:39 Dose: 20 mg Documented by: Chlorhexidine Gluconate (Chlorhexidine Gluconate 15 Ml Cup) 15 ml MUCOUS MEM BID [facility] Last Admin: 09/10/20 09:14 Dose: 15 ml Documented by: Cholecalciferol (Cholecalciferol 25 Mcg (1000 Iu) Tablet) 125 mcg PO DAILY [facility] Last Admin: 09/10/20 09:14 Dose: 125 mcg Documented by: Citalopram Hydrobromide (Citalopram Hydrobromide 20 Mg Tab) 40 mg PO DAILY [facility] Last Admin: 09/10/20 09:13 Dose: 40 mg Documented by: Enoxaparin Sodium (Enoxaparin 40 Mg/0.4 Ml Syringe) 40 mg SQ BID [facility] Last Admin: 09/10/20 09:12 Dose: 40 mg Documented by: Propofol 1,000 mg/ IV Solution 100 mls @ 0 mls/hr IV .Q0M [facility]; Protocol Last Titration: 09/10/20 20:26 Dose: 55 mcg/kg/min, 27.06 mls/hr Documented by: Cisatracurium Besylate 200 mg/ (Sodium Chloride) 200 mls @ 3.81 mls/hr IV .Q24H [facility]; Protocol Last Admin: 09/10/20 06:24 Dose: 2 mcg/kg/min, 7.62 mls/hr Documented by: Fentanyl Citrate 1,000 mcg/ (Sodium Chloride) 100 mls @ 0 mls/hr IV .Q0M [facility]; Protocol Last Admin: 09/10/20 16:28 Dose: 2 mcg/kg/hr, 12.701 mls/hr Documented by: Sodium Chloride (Saline 0.9%) 1,000 mls @ 75 mls/hr IV .[id number] [facility] Last Admin: 09/10/20 09:12 Dose: 75 mls/hr Documented by: Clevidipine 25 mg/ IV Solution 50 mls @ 2 mls/hr IV .Q24H [facility]; Protocol Last Titration: 09/10/20 20:26 Dose: 2 mg/hr, 4 mls/hr Documented by: Insulin Aspart (Insulin Aspart (Novolog) 100 Unit/Ml Vial) 0 unit SQ Q6H [facility]; Protocol Last Admin: 09/10/20 18:26 Dose: 5 unit Documented by: Lactulose (Lactulose 20 Gm/30 Ml Cup) 30 gm PO BID PRN PRN Reason: Constipation Levothyroxine Sodium (Levothyroxine 75 Mcg Tab) 75 mcg PO [id number] [facility] Last Admin: 09/10/20 06:22 Dose: 75 mcg Documented by: Levothyroxine Sodium (Levothyroxine 75 Mcg Tab) 37.5 mcg PO [facility] Last Admin: 09/05/20 22:56 Dose: 37.5 mcg Documented by: Lisinopril (Lisinopril 20 Mg Tab) 20 mg PO DAILY [facility] Loratadine (Loratadine 10 Mg Tab) 10 mg PO [facility] Last Admin: 09/09/20 21:50 Dose: 10 mg Documented by: Melatonin (Melatonin 5 Mg Tablet) 5 mg PO [facility] Last Admin: 09/10/20 20:35 Dose: Not Given Documented by: Methylprednisolone Sodium Succinate (Methylprednisolone Sod Succi 125 Mg/2 Ml Vial) 60 mg IV Q6HR [facility] Last Admin: 09/10/20 18:26 Dose: 60 mg Documented by: Metoprolol Tartrate (Metoprolol Tartrate 50 Mg Tab) 100 mg PO DAILY [facility] Last Admin: 09/10/20 09:13 Dose: 100 mg Documented by: Miscellaneous Information (Potassium Replacement Protocol 1 Each Misc) 1 each MISCELLANE DAILY PRN; Protocol PRN Reason: Per Protocol Montelukast Sodium (Montelukast 10 Mg Tab) 10 mg PO [facility] Last Admin: 09/09/20 21:39 Dose: 10 mg Documented by: Multivitamins (Multivitamins, Thera 1 Each Tab) 1 each PO [facility] Last Admin: 09/09/20 21:39 Dose: 1 each Documented by: Naloxone HCl (Naloxone 0.4 Mg/Ml 1 Ml Vial) 0.2 mg IV Q2M PRN PRN Reason: Opioid Reversal Pantoprazole Sodium (Pantoprazole 40 Mg/10 Ml Vial) 40 mg IVP BID [facility] Zinc Sulfate (Zinc Sulfate 220 Mg Cap) 220 mg PO DAILY [facility] Last Admin: 09/10/20 09:14 Dose: 220 mg Documented by: On examination: VITAL SIGNS: 97.3, 77, 28, 160/77, 77% on the ventilator GENERAL APPEARANCE: laying in bed, intubated . ETT, OGtube-2 feeding HEENT: Endotracheal tube PSYCHIATRY: Unable to assess Rest of exam as per pulmonary nursing INVESTIGATIONS, reviewed in the clinical context: September 10: WBC 12.7 hemoglobin 8.8 platelets 360 d-dimer 10.5 potassium 4.2 creatinine 0.63 CRP 33 September 09: WBC 10.5 hemoglobin 9 at bedtime 352 d-dimer 3.0 potassium 4.2 creatinine 0.59 CRP 80.1 September 08: WBC 5.4 hemoglobin 8.8 platelets 237 d-dimer 1.67. Potassium 3.3 creatinine 0.53 CRP 216 September 07: WBC 5.7 hemoglobin 9.2 platelets 250 potassium 3.8 creatinine 0.73 troponin I 0.084 albumin 2.6 Chest x-ray film personally reviewed by me-[September 07: Bilateral infiltrates, confluent more so in the lower zones and metolazone EKG tracing personally reviewed by me-normal sinus rhythm. Nonspecific changes CT [place] chest: Extensive bilateral infiltrates with adenopathy. No PE Admission labs: Troponin I less than 0.012 Assessment and plan Acute hypoxic respiratory not improving - intubated on September 07. On the ventilator-70%. PEEP 18 Interstitial pneumonia secondary to COVID-19: Not improving -Receiving Lovenox, dexamethasone, vitamin C vitamin D, Pepcid, zinc. Received ACTEMRA and convalescent plasma Hypothyroidism; - levothyroxine 75 MCG daily Essential Hypertension; - continue with home dose of metoprolol 100 mg daily, lisinopril 5 mg daily, Norvasc 10 mg daily Hyperlipidemia; -continue with home statin therapy Asthma; not in exacerbation; -continue singular 10 mg daily home inhaler therapy GERD: - Continue with PPI Irritable bowel syndrome: -Follow clinically Raynauds phenomenon. - Follow clinically Diabetes mellitus type 2; -hold metformin. Follow Accu-Cheks. Normocytic anemia. -Follow H&H Acute hypoalbuminemia: -Acute phase reactant Obesity BMI 31.4 -To follow outpatient for weight loss measures CODE STATUS; full code Patient remains rather critically ill. In the ICU. Intubated. 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
[2020-09-11 00:01] LABS: Glucose,Whole Blood 172 mg/dL (75-99)
[2020-09-11] MEDS: methylPREDNISolone SOD SUCCI 125 MG/2 ML VIAL IV SCH ×4 (00:16→17:08)
[2020-09-11] MEDS: INSULIN ASPART (NovoLOG) 100 UNIT/ML VIAL SQ SCH ×4 (00:17→17:49)
[2020-09-11] MEDS: ARTIFICIAL TEARS-HYPROMELLOSE DROPS 15 ML BTL BOTH EYES SCH ×6 (00:17→21:17)
[2020-09-11] MEDS: CLEVIDIPINE BUTYRATE 25 MG in EMPTY BAG 1 BAG IV SCH ×5 (03:41→23:33)
[2020-09-11] MEDS: fentaNYL (PF) 1,000 MCG in SODIUM CHLORIDE 0.9% 80 ML IV SCH (04:22)
[2020-09-11 04:27] LABS: ABG Base Excess 3.6 mmol/L; ABG HCO3 27 mmol/L (21-25); ABG Oxygen Saturation 98.6 % (94-97); ABG PCO2 37 mmHg (35-45); ABG PH 7.47 (7.35-7.45); ABG PO2 167 mmHg (83-108); ABG TCO2 28 mmol/L (19-24)
[2020-09-11 04:28] LABS: Allen Test Performed? no
[2020-09-11 04:53] LABS: Basophils # (A) 0.1 k/uL (0-0.2); Basophils % (A) 0 %; Eosinophils % (A) 0 %; HCT 27.2 % (34.0-46.0); HGB 9.6 gm/dL (11.4-16.0); Lymphocytes # (A) 1.4 k/uL (1.0-4.8); Lymphocytes % (A) 8 %; MCH 29.9 pg (25.0-35.0); MCHC 35.3 g/dL (31.0-37.0); MCV 84.7 fL (80.0-100.0); Mean Platelet Volume 7.5; Monocytes # (A) 0.9 k/uL (0-1.0); Monocytes % (A) 5 %; Neutrophils # (A) 14.3 k/uL (1.3-7.7); Neutrophils % (A) 85 %; Platelet Count 442 k/uL (150-450); RBC 3.21 m/uL (3.80-5.40); RDW 13.6 % (11.5-15.5); WBC 16.9 k/uL (3.8-10.6)
[2020-09-11 05:29] LABS: ALT 33 U/L (4-34); AST 34 U/L (14-36); African American GFR (CKD) >90 (>60 ml/min/1.73 sqM); Albumin 2.6 g/dL (3.5-5.0); Alkaline Phosphatase 93 U/L (38-126); Anion Gap 4 mmol/L; Blood Urea Nitrogen 20 mg/dL (7-17); C Reactive Protein 16.6 mg/L (<10.0); Carbon Dioxide 26 mmol/L (22-30); Chloride 115 mmol/L (98-107); Glucose 158 mg/dL (74-99); LDH 1750 U/L (313-618); Non-African American GFR(CKD) >90 (>60 ml/min/1.73 sqM); Potassium 3.6 mmol/L (3.5-5.1); Sodium 145 mmol/L (137-145); Total Bilirubin 0.4 mg/dL (0.2-1.3); Total Protein 4.9 g/dL (6.3-8.2)
[2020-09-11 06:21] LABS: Glucose,Whole Blood 162 mg/dL (75-99)
[2020-09-11] MEDS: LEVOTHYROXINE 75 MCG TAB PO SCH (06:44)
[2020-09-11] MEDS: ALBUTEROL HFA INHALER INHALATION SCH ×4 (07:24→20:27)
[2020-09-11] MEDS ORDERED: POTASSIUM BICARBONATE/CIT AC 20 MEQ TABLET.EFF NG-TUBE SCH (09:00)
[2020-09-11] MEDS: fentaNYL (PF) 2,500 MCG in SODIUM CHLORIDE 0.9% 200 ML IV SCH (09:41)
[2020-09-11] MEDS: CHLORHEXIDINE GLUCONATE 15 ML CUP MUCOUS MEM SCH ×2 (09:41→21:21)
[2020-09-11] MEDS: CISATRACURIUM 200 MG in SODIUM CHLORIDE 0.9% 180 ML IV SCH (09:41)
[2020-09-11] MEDS: CHOLECALCIFEROL 25 MCG (1000 IU) TABLET PO SCH (09:43)
[2020-09-11] MEDS: ENOXAPARIN 40 MG/0.4 ML SYRINGE SQ SCH ×2 (09:44→21:21)
[2020-09-11] MEDS: PANTOPRAZOLE 40 MG/10 ML VIAL IVP SCH ×2 (09:44→21:21)
[2020-09-11] MEDS: lisinopriL 20 MG TAB PO SCH (09:45)
[2020-09-11] MEDS: METOPROLOL TARTRATE 50 MG TAB PO SCH (09:45)
[2020-09-11] MEDS: CITALOPRAM HYDROBROMIDE 20 MG TAB PO SCH (09:45)
[2020-09-11] MEDS: ASCORBIC ACID 500 MG TAB PO SCH (09:45)
[2020-09-11] MEDS: ZINC SULFATE 220 MG CAP PO SCH (09:45)
[2020-09-11] MEDS: SODIUM CHLORIDE 0.9% 1,000 ML IV SCH ×2 (09:47→21:21)
--- NOTE | 2020-09-11 10:23 | XR ---
EXAMINATION TYPE: XR chest 1V portable DATE OF EXAM: 09/11/2020 Comparison: 09/10/2020 Clinical History: 65-year-old female Tube placement Findings: ET tube tip at the level of the medial clavicular heads. NG tube is short, it appears to have been pu lled back. The sidehole is now in the lower chest. The tube can be advanced by 10 cm into the stomach . Heart upper limits of normal in size. Patchy mid and lower lung opacities show some improvement. No pleural effusion. Left subclavian IVC tip in the upper right atrium. Some kinking of the proximal as pect is noted. Impression: 1. NG tube has been pulled back. The sidehole is in the lower chest. The tube can be advanced by 10 c m into the stomach. 2. Some kinking of the proximal aspect of the left subclavian CVC. 3. Patchy mid and lower lung airspace disease persists but is improving.
[2020-09-11 10:33] LABS: Ferritin 152.3 ng/mL (10.0-291.0)
--- NOTE | 2020-09-11 11:25 | P.PN ---
Subjective Progress Note Date: 09/11/20 Principal diagnosis: Acute hypoxemic respiratory failure 65-year-old white female patient of Dr. Haq with past medical history of hypertension, hypothyroidism, IBS, hiatal hernia, renal disorder, who presented to the emergency department on 09/05/2020 with symptoms of nausea, vomiting, diarrhea, she reported some cough, fever and generalized weakness, but no overt shortness of breath. Patient had exposure to COVID 19 from her son and daughter. Patient had decreased oral intake, she came in with profound generalized weakness and not being able to keep fluids down. Chest x-ray showed bilateral patchy airspace pneumonia, COVID 19 PCR was positive. Patient was lymphopenic with lymphocytic 0.9, white blood cell count is 3.5, hemoglobin is 12.5, d-dimer 0.61, troponin was less than 0.012, pro calcitonin level was 0.07. LDH was 1550, CRP is 130.8, ferritin level is 337.5. Presentation patient was severely hypoxic, with O2 saturations in the low 80s on 100% FiO2. Blood gas was obtained showing pO2 of 44, pCO2 of 36, pH of 7.46, patient was intubated and placed on mechanical ventilator. She is currently sedated and paralyzed, and on assist control mode of ventilation with a rate of 28, tacrolimus 400, FiO2 100%, and PEEP of 14. This morning blood gases showed pO2 of 50, pCO2 36, and pH of 7.44. Currently patient sedated and paralyzed on [facility] ventilator. 0.9 at 130 in the per hour, and Nimbex is at 2 mics per kilo per minute, Diprivan is a 50 mics per kilo per minute, and fentanyl drip is currently is 1 mcg/kg/m. Patient has been started on IV steroids 60 mg every 6 hours of Solu-Medrol, she is on Lovenox 40 mg daily. She'll be given a dose of convalescent plasma and she is awaiting a dose of Tocili. Follow-up chest x-ray today shows increased bilateral patchy opacities, and trace right pleural effusion. CTA chest was completed showing no evidence of pulmonary embolism. On 09/08/2020 patient seen in follow-up in the intensive care units. She remains sedated, intubated, currently on assist control with a rate of 20s, tidal volume is 450, FiO2 70%, and PEEP of 18, this morning blood gases show pO2 of 63, pCO2 33, pH is 7.38. Patient is currently on 0.9 at 130 and no per hour, Diprivan is a 35 mics per kilo per minute, fentanyl drip is at 1 adam per kilo per minute, and Nexium is at 1.45 mics per kilo per minute. She is noted to be hypothermic early this morning with a temp of 93.4F. White blood cell count is 5.4, hemoglobin is 8.8, facet, 0.8, d-dimer is 1.67, sodium is 139, potassium is 3.3, chloride is 114, CO2 is 19, BUN is 13, creatinine 0.53, CRP is 216, AST is 40, ALT is 19, alkaline phosphatase is 80, troponin was less than 0.012. LDH is pending today. Progesterone level was negative at 0.07, urinalysis showed no evidence of infection. Blood cultures were negative. She remains on Lovenox 40 mg twice daily, IV Solu-Medrol 60 g every 6 hours, she received 480 mg of Tocilizumab. Received 1 unit of convalescent plasma. She is receiving nutritional support in the form of vital HP at 20 with a goal of 29. Has been tolerating tube feedings, fluid boluses were given yesterday, she still continues on 0.9 NS at 130 ML per hour and her urine output is marginal, and patient will receive additional liter fluid bolus Progress note dated 09/09/2020. 65-year-old female, seen again today in room 263. She remains on mechanical ventilator. She is on the volume assist control mode, rate of 28, tidal volume 400, FiO2 70%, and a PEEP of 18. Blood gases show pO2 of 83, pCO2 of 37, and a pH is 7.37. Currently, she is on propofol at 50 g kilogram per minute, fentanyl 1 mcg/kg/h, Nimbex at 1.5 mcg/kg/m, saline at 130 mL an hour, vital high protein at 29 mL an hour, which is goal. We will attempt to get her off the Nimbex today if possible. White count 10.5, hemoglobin 9, hematocrit 26.6, platelet count 352,000. D-dimer is 3. Sodium 144, potassium 4.2, chlorides 118, CO2 22, anion gap 4, BUN 17, creatinine 0.59. Calcium 7.3. LDH 1453, and C-reactive protein is 80.1. Chest x-ray shows diffuse bilateral airspace disease which is stable. Progress note dated 09/10/2020. The patient is again seen in the intensive care unit, room 263. She remains on mechanical ventilation. She is on the volume assist control mode, rate 28, tidal volume 400, FiO2 70%, and PEEP of 18. Arterial blood gases show a PaO2 of 69, PaCO2 of 38, and a pH of 7.38. The patient's getting propofol at 50 mcg/kg/m, fentanyl at 2 mcg/kg/h, Nimbex at 2 mcg/kg/m, saline, at 130 mL an hour, to be reduced to 75 mL an hour, Lasix 40 mg IV push 1, and vital high protein at goal, which is 29 mL an hour. Addition, she'll be placed on Lovenox 40 mg subcu twice a day. White count 12.7, hemoglobin 8.8, hematocrit 25.9, platelet count 360,000. D-dimer is 10.50. Sodium 144, potassium 4.2, chlorides 118, CO2 21, anion gap is 5, BUN 21, and creatinine 0.63. LDH is 1386. C- reactive protein is 33. Chest x-ray shows persistent but slightly improved bilateral infiltrates. Progress note dated 09/21/2020. 65-year-old female, again seen in the intensive care unit, and room 263. She remains on the mechanical ventilator, and the volume assist control mode. Her rate is set at 28, FiO2 is 60% to be dropped down to 50%, PEEP of 18, to be dropped to a PEEP of 15, and a tidal volume of 400. Arterial blood gases show a PaO2 of 167, pCO2 37, and a pH of 7.47. The patient was prone yesterday. In addition, the patient's on Cleveprex at 3 mg an hour, propofol at 50 mcg/kg/m, fentanyl 3 mcg/kg/h, and Nimbex at 2 mcg/kg/m. The patient's getting saline at 75 mL an hour, and vital high protein at 29, with a goal of 29 mL an hour. White count 16.9, hemoglobin 9.6, hematocrit 27.2, and platelet count 442,000. Sodium 145, potassium 3.6, chlorides 115, CO2 26, anion gap 4, BUN 20, creatinine 0.56. Chest x-ray shows bilateral patchy infiltrates. Objective - Vital Signs Vital signs: Vital Signs Temp 98 F 09/11/20 04:00 Pulse 71 09/11/20 07:00 Resp 28 H 09/11/20 07:00 BP 190/111 09/10/20 22:30 Pulse Ox 99 09/11/20 07:00 Intake & Output 09/10/20 09/11/20 09/11/20 18:59 06:59 18:59 Intake Total 6697.278 5393.124 392.9 Output Total 3000 800 30 Balance -1231.744 552.124 362.9 Weight 79.4 kg Intake: IV 1085 825 75 Sodium Chloride 0.9% 1, 335 000 ml @ 130 mls/hr IV . Q7H42M [facility] Rx#:[id number] Sodium Chloride 0.9% 1, 750 825 75 000 ml @ 75 mls/hr IV . [id number] [facility] Rx#:[id number] Intake, IV Titration 391.256 527.124 317.9 Amount Cisatracurium 200 mg In 200 Sodium Chloride 0.9% 180 ml @ 1 MCG/KG/MIN 3.81 mls/hr IV .Q24H [facility] Rx#: [id number] Clevidipine Butyrate 25 25.633 48.900 17.9 mg In Empty Bag 1 bag @ 1 MG/HR 2 mls/hr IV .Q24H [facility] Rx#:[id number] fentaNYL (PF) 1,000 mcg 190.938 183.738 In Sodium Chloride 0.9% 80 ml @ Per Protocol IV . Q0M [facility] Rx#:[id number] propofoL 1,000 mg In 174.685 294.486 100 Empty Bag 1 bag @ Titrate IV .Q0M [facility] Rx#: [id number] Tube Feeding 232 Other 60 Output: Urine 3000 800 30 Other: Voiding Method Indwelling Catheter Indwelling Catheter # Bowel Movements 1 ABP, PAP, CO, CI - Last Documented Arterial Blood Pressure 168/77 - Exam No acute distress, oriented 3. The patient is sedated and intubated and on the mechanical ventilator. She is also chemically paralyzed. HEENT examination is grossly unremarkable. Orally placed endotracheal tube is noted. Neck supple. Full range of motion. No adenopathy thyromegaly or neck vein distention. Cardiovascular examination reveals regular rhythm rate. S1-S2 normal. No S3 or S4. No discernible murmur noted. Heart rate 71 bpm. Lungs reveal bilateral coarse rhonchi, and by basilar crackles. Breath sounds equal bilaterally. There are no wheezes. Abdomen soft bowel sounds are heard. No masses or tenderness. Extremities are intact. No cyanosis clubbing or edema. Skin is without rash or lesion. Neurologic examination is difficult to evaluate because of patient's currently sedated and paralyzed. - Labs CBC & Chem 7: 09/11/20 04:25 09/11/20 04:25 Labs: Abnormal Lab Results - Last 24 Hours (Table) 09/10/20 09/10/20 09/10/20 Range/Units 12:58 18:06 23:56 WBC (3.8-10.6) k/uL RBC (3.80-5.40) m/uL Hgb (11.4-16.0) gm/dL Hct (34.0-46.0) % Neutrophils # (1.3-7.7) k/uL ABG pH (7.35-7.45) ABG pO2 (83-108) mmHg ABG HCO3 (21-25) mmol/L ABG Total CO2 (19-24) mmol/L ABG O2 Saturation (94-97) % Chloride (98-107) mmol/L BUN (7-17) mg/dL Glucose (74-99) mg/dL POC Glucose (mg/dL) 189 H 190 H 172 H (75-99) mg/dL Calcium (8.4-10.2) mg/dL Lactate Dehydrogenase (313-618) U/L C-Reactive Protein (<10.0) mg/L Total Protein (6.3-8.2) g/dL Albumin (3.5-5.0) g/dL 09/11/20 09/11/20 09/11/20 Range/Units 04:16 04:25 04:25 WBC 16.9 H (3.8-10.6) k/uL RBC 3.21 L (3.80-5.40) m/uL Hgb 9.6 L (11.4-16.0) gm/dL Hct 27.2 L (34.0-46.0) % Neutrophils # 14.3 H (1.3-7.7) k/uL ABG pH 7.47 H (7.35-7.45) ABG pO2 167 H (83-108) mmHg ABG HCO3 27 H (21-25) mmol/L ABG Total CO2 28 H (19-24) mmol/L ABG O2 Saturation 98.6 H (94-97) % Chloride 115 H (98-107) mmol/L BUN 20 H (7-17) mg/dL Glucose 158 H (74-99) mg/dL POC Glucose (mg/dL) (75-99) mg/dL Calcium 8.0 L (8.4-10.2) mg/dL Lactate Dehydrogenase 1750 H (313-618) U/L C-Reactive Protein 16.6 H (<10.0) mg/L Total Protein 4.9 L (6.3-8.2) g/dL Albumin 2.6 L (3.5-5.0) g/dL 09/11/20 Range/Units 06:19 WBC (3.8-10.6) k/uL RBC (3.80-5.40) m/uL Hgb (11.4-16.0) gm/dL Hct (34.0-46.0) % Neutrophils # (1.3-7.7) k/uL ABG pH (7.35-7.45) ABG pO2 (83-108) mmHg ABG HCO3 (21-25) mmol/L ABG Total CO2 (19-24) mmol/L ABG O2 Saturation (94-97) % Chloride (98-107) mmol/L BUN (7-17) mg/dL Glucose (74-99) mg/dL POC Glucose (mg/dL) 162 H (75-99) mg/dL Calcium (8.4-10.2) mg/dL Lactate Dehydrogenase (313-618) U/L C-Reactive Protein (<10.0) mg/L Total Protein (6.3-8.2) g/dL Albumin (3.5-5.0) g/dL Microbiology - Last 24 Hours (Table) 09/05/20 19:00 Blood Culture - Preliminary Blood No Growth after 120 hours 09/05/20 18:45 Blood Culture - Preliminary Blood No Growth after 120 hours Assessment and Plan Assessment: #1. Acute hypoxic respiratory failure related to acute COVID 19 pneumonia, patient was admitted to the hospital on 09/05/2020, transfer to the intensive care unit on 09/07/2020 and intubated on 09/07/2020, will receive a dose of Actemra 1, and, convalescent plasma 1 on 09/07/2020 #2. Increased d-dimer related to the above with no CT evidence of pulmonary embolism #3. Increased inflammatory markers #4. Hypertension #5. Hypothyroidism #6. Never smoker #7. IBS #8. Raynaud's Plan: Plan dated 09/09/2020. Currently, the patient remains on the chemical ventilator. We'll attempt to get her off the Nimbex today. The patient's blood gases are reasonable, although she is on FiO2 percent, and PEEP of 18. We will continue to follow make recommendations were appropriate. She's on appropriate medications including corticosteroids, and vitamins. In addition, she is being nourished and really at goal. Additional recommendations and suggestions are forthcoming. Prognosis is guarded. The patient has received convalescent plasma, as well as TOCI. Plan dated 09/10/2020. The patient remains on the mechanical ventilator. Vent settings as above. She remains on propofol, fentanyl, and Nimbex. We will drop the IV rate from 1:30 down to 75 mL an hour. We'll also give her Lasix 40 mg IV push. She remains on tube feeds at goal. She's getting Lovenox 40 mg subcu twice a day. Additional recommendations and suggestions are forthcoming. Prognosis is guarded. She has not made much progress since being here in the intensive care unit. She did receive convalescent plasma and TOCI. Plan dated 09/11/2020. The patient remains on the mechanical ventilator. The patient was proned to yesterday. Her oxygenation has improved. The FiO2 will be dropped from 60 to 50%. In addition, the PEEP was dropped from 18 down to 15 cm water. The PaO2 on today's blood gases 167. She remains on Cleveprex, propofol, fentanyl, and Nimbex. She is getting tube feeds at goal. Prognosis is guarded. X-rays, labs, and medications are all reviewed. Continue to follow make recommendations were appropriate. In the end, the patient may require a tracheostomy tube and PEG tube. Time with Patient: Greater than 30
[2020-09-11 11:44] LABS: Glucose,Whole Blood 172 mg/dL (75-99)
--- NOTE | 2020-09-11 12:15 | XR ---
EXAMINATION TYPE: XR abdomen 1V DATE OF EXAM: 09/11/2020 Comparison: Chest radiograph earlier today Clinical History: 65-year-old female OG placement to start tube feeds Findings: Nonobstructive bowel gas pattern. The patient's OG tube has been advanced. The sidehole is at the lev el of the gastric body and tip at the level of the gastric antrum. Impression: Satisfactory advancement of the OG tube into the stomach.
[2020-09-11] MEDS: amLODIPine 5 MG TAB PO SCH (15:57)
[2020-09-11 17:17] LABS: Glucose,Whole Blood 160 mg/dL (75-99)
--- NOTE | 2020-09-11 18:16 | P.PN ---
Progress Note - Text Progress Note Date: 09/11/20 Chief Complaint: Difficulty breathing/COVID positive History of presenting complaint 65-year-old female , whose PCP is Dr. Haq, states she's been exposed to Covid 19 from both her son and daughter who states she's had symptoms similar today for last 8 days which include nausea vomiting recently diarrhea rhinorrhea no overt shortness of breath she does have a cough also a fever and generalized weakness. decreased oral intake. She is here just because she is profoundly weak at this time. Not able to keep fluids down. Admitted with COVID 19 pneumonia. Acute hypoxic respiratory failure. Patient was given convalescent plasma. Dexamethasone, September 07: into respiratory distress. intubated. Given ACTEMRA. Convalescent plasma. , Today: ICU: Drips include: Propofol, fentanyl, Nimbex. Ventilator: 70% with a PEEP of 18 ;tube feeding Sinus rhythm. OG tube and endotracheal tube. Review of systems: Patient intubated Active Medications Acetaminophen (Acetaminophen Tab 325 Mg Tab) 650 mg PO Q6HR PRN PRN Reason: Mild Pain or Fever > 100.5 Last Admin: 09/06/20 12:25 Dose: 650 mg Documented by: Albuterol Sulfate (Albuterol Hfa Inhaler) 2 puff INHALATION RT-QID PRN PRN Reason: Shortness Of Breath Or Wheezing Albuterol Sulfate (Albuterol Hfa Inhaler) 4 puff INHALATION RT-QID [facility] Last Admin: 09/11/20 16:09 Dose: 4 puff Documented by: Amlodipine Besylate (Amlodipine 5 Mg Tab) 5 mg PO DAILY@1400 [facility] Last Admin: 09/11/20 15:57 Dose: 5 mg Documented by: Artificial Tears (Artificial Tears-Hypromellose Drops 15 Ml Btl) 1 drops BOTH EYES Q4H [facility] Last Admin: 09/11/20 15:57 Dose: 1 drops Documented by: Ascorbic Acid (Ascorbic Acid 500 Mg Tab) 1,000 mg PO DAILY [facility] Last Admin: 09/11/20 09:45 Dose: 1,000 mg Documented by: Aspirin (Aspirin 81 Mg) 81 mg PO [facility] Last Admin: 09/10/20 21:07 Dose: 81 mg Documented by: Atorvastatin Calcium (Atorvastatin 20 Mg Tab) 20 mg PO [facility] Last Admin: 09/10/20 21:07 Dose: 20 mg Documented by: Chlorhexidine Gluconate (Chlorhexidine Gluconate 15 Ml Cup) 15 ml MUCOUS MEM BID [facility] Last Admin: 09/11/20 09:41 Dose: 15 ml Documented by: Cholecalciferol (Cholecalciferol 25 Mcg (1000 Iu) Tablet) 125 mcg PO DAILY [facility] Last Admin: 09/11/20 09:43 Dose: 125 mcg Documented by: Citalopram Hydrobromide (Citalopram Hydrobromide 20 Mg Tab) 40 mg PO DAILY [facility] Last Admin: 09/11/20 09:45 Dose: 40 mg Documented by: Enoxaparin Sodium (Enoxaparin 40 Mg/0.4 Ml Syringe) 40 mg SQ BID [facility] Last Admin: 09/11/20 09:44 Dose: 40 mg Documented by: Propofol 1,000 mg/ IV Solution 100 mls @ 0 mls/hr IV .Q0M [facility]; Protocol Last Admin: 09/11/20 15:56 Dose: 60 mcg/kg/min, 28.584 mls/hr Documented by: Cisatracurium Besylate 200 mg/ (Sodium Chloride) 200 mls @ 3.81 mls/hr IV .Q24H [facility]; Protocol Last Titration: 09/11/20 12:00 Dose: 3 mcg/kg/min, 11.431 mls/hr Documented by: Sodium Chloride (Saline 0.9%) 1,000 mls @ 75 mls/hr IV .[id number] [facility] Last Admin: 09/11/20 09:47 Dose: 75 mls/hr Documented by: Clevidipine 25 mg/ IV Solution 50 mls @ 2 mls/hr IV .Q24H [facility]; Protocol Last Admin: 09/11/20 15:56 Dose: 4 mg/hr, 8 mls/hr Documented by: Fentanyl Citrate 2,500 mcg/ (Sodium Chloride) 250 mls @ 0 mls/hr IV .Q0M [facility]; Protocol Last Admin: 09/11/20 09:41 Dose: 3 mcg/kg/hr, 23.82 mls/hr Documented by: Insulin Aspart (Insulin Aspart (Novolog) 100 Unit/Ml Vial) 0 unit SQ Q6H [facility]; Protocol Last Admin: 09/11/20 17:49 Dose: 3 unit Documented by: Lactulose (Lactulose 20 Gm/30 Ml Cup) 30 gm PO BID PRN PRN Reason: Constipation Levothyroxine Sodium (Levothyroxine 75 Mcg Tab) 75 mcg PO MoTuWeThFr@0630 [facility] Last Admin: 09/11/20 06:44 Dose: 75 mcg Documented by: Levothyroxine Sodium (Levothyroxine 75 Mcg Tab) 37.5 mcg PO [facility] Last Admin: 09/05/20 22:56 Dose: 37.5 mcg Documented by: Lisinopril (Lisinopril 20 Mg Tab) 20 mg PO DAILY [facility] Last Admin: 09/11/20 09:45 Dose: 20 mg Documented by: Loratadine (Loratadine 10 Mg Tab) 10 mg PO [facility] Last Admin: 09/10/20 21:07 Dose: 10 mg Documented by: Melatonin (Melatonin 5 Mg Tablet) 5 mg PO [facility] Last Admin: 09/10/20 20:35 Dose: Not Given Documented by: Methylprednisolone Sodium Succinate (Methylprednisolone Sod Succi 125 Mg/2 Ml Vial) 60 mg IV Q6HR [facility] Last Admin: 09/11/20 17:08 Dose: 60 mg Documented by: Metoprolol Tartrate (Metoprolol Tartrate 50 Mg Tab) 100 mg PO DAILY [facility] Last Admin: 09/11/20 09:45 Dose: 100 mg Documented by: Miscellaneous Information (Potassium Replacement Protocol 1 Each Misc) 1 each MISCELLANE DAILY PRN; Protocol PRN Reason: Per Protocol Montelukast Sodium (Montelukast 10 Mg Tab) 10 mg PO [facility] Last Admin: 09/10/20 21:07 Dose: 10 mg Documented by: Multivitamins (Multivitamins, Thera 1 Each Tab) 1 each PO [facility] Last Admin: 09/10/20 21:07 Dose: 1 each Documented by: Naloxone HCl (Naloxone 0.4 Mg/Ml 1 Ml Vial) 0.2 mg IV Q2M PRN PRN Reason: Opioid Reversal Pantoprazole Sodium (Pantoprazole 40 Mg/10 Ml Vial) 40 mg IVP BID [facility] Last Admin: 09/11/20 09:44 Dose: 40 mg Documented by: Zinc Sulfate (Zinc Sulfate 220 Mg Cap) 220 mg PO DAILY [facility] Last Admin: 09/11/20 09:45 Dose: 220 mg Documented by: On examination: VITAL SIGNS: 98, 62, 28, 1 54 x 69, 94% on the ventilator GENERAL APPEARANCE: laying in bed, intubated . ETT, OGtube-2 feeding HEENT: Endotracheal tube PSYCHIATRY: Unable to assess Rest of exam as per pulmonary nursing INVESTIGATIONS, reviewed in the clinical context: September 11: WBC 16.9 hemoglobin 9.6 platelets 442 potassium 3.6 creatinine 0.56 CR be 16.6 September 10: WBC 12.7 hemoglobin 8.8 platelets 360 d-dimer 10.5 potassium 4.2 creatinine 0.63 CRP 33 September 09: WBC 10.5 hemoglobin 9 at bedtime 352 d-dimer 3.0 potassium 4.2 creatinine 0.59 CRP 80.1 September 08: WBC 5.4 hemoglobin 8.8 platelets 237 d-dimer 1.67. Potassium 3.3 creatinine 0.53 CRP 216 September 07: WBC 5.7 hemoglobin 9.2 platelets 250 potassium 3.8 creatinine 0.73 troponin I 0.084 albumin 2.6 Chest x-ray film personally reviewed by me-[September 07: Bilateral infiltrates, confluent more so in the lower zones and metolazone EKG tracing personally reviewed by me-normal sinus rhythm. Nonspecific changes CT [place] chest: Extensive bilateral infiltrates with adenopathy. No PE Admission labs: Troponin I less than 0.012 Assessment and plan Acute hypoxic respiratory not improving - intubated on September 07. On the ventilator-70%. PEEP 18 Interstitial pneumonia secondary to COVID-19: Not improving -Receiving Lovenox, dexamethasone, vitamin C vitamin D, Pepcid, zinc. Received ACTEMRA and convalescent plasma Hypothyroidism; - levothyroxine 75 MCG daily Essential Hypertension; - continue with home dose of metoprolol 100 mg daily, lisinopril 5 mg daily, Norvasc 10 mg daily Hyperlipidemia; -continue with home statin therapy Asthma; not in exacerbation; -continue singular 10 mg daily home inhaler therapy GERD: - Continue with PPI Irritable bowel syndrome: -Follow clinically Raynauds phenomenon. - Follow clinically Diabetes mellitus type 2; -hold metformin. Follow Accu-Cheks. Normocytic anemia. -Follow H&H Acute hypoalbuminemia: -Acute phase reactant Obesity BMI 31.4 -To follow outpatient for weight loss measures CODE STATUS; full code Patient remains rather critically ill. In the ICU. Continue current medications
[2020-09-11] MEDS: LORATADINE 10 MG TAB PO SCH (21:21)
[2020-09-11] MEDS: MELATONIN 5 MG TABLET PO SCH (21:21)
[2020-09-11] MEDS: ASPIRIN 81 MG PO SCH (21:21)
[2020-09-11] MEDS: MONTELUKAST 10 MG TAB PO SCH (21:22)
[2020-09-11] MEDS: ATORVASTATIN 20 MG TAB PO SCH (21:22)
[2020-09-11] MEDS: MULTIVITAMINS, THERA 1 EACH TAB PO SCH (21:22)
[2020-09-12 00:08] LABS: Glucose,Whole Blood 176 mg/dL (75-99)
[2020-09-12] MEDS: methylPREDNISolone SOD SUCCI 125 MG/2 ML VIAL IV SCH ×4 (00:23→18:05)
[2020-09-12] MEDS: INSULIN ASPART (NovoLOG) 100 UNIT/ML VIAL SQ SCH ×4 (00:24→18:05)
[2020-09-12] MEDS: fentaNYL (PF) 2,500 MCG in SODIUM CHLORIDE 0.9% 200 ML IV SCH ×2 (01:22→17:50)
[2020-09-12] MEDS: CLEVIDIPINE BUTYRATE 25 MG in EMPTY BAG 1 BAG IV SCH ×3 (01:42→15:18)
[2020-09-12] MEDS: ARTIFICIAL TEARS-HYPROMELLOSE DROPS 15 ML BTL BOTH EYES SCH ×6 (01:44→20:21)
[2020-09-12] MEDS: CISATRACURIUM 200 MG in SODIUM CHLORIDE 0.9% 180 ML IV SCH ×2 (04:14→21:20)
[2020-09-12 05:50] LABS: ABG Base Excess 3.5 mmol/L; ABG HCO3 27 mmol/L (21-25); ABG Oxygen Saturation 95.5 % (94-97); ABG PCO2 35 mmHg (35-45); ABG PH 7.49 (7.35-7.45); ABG PO2 77 mmHg (83-108); ABG TCO2 28 mmol/L (19-24); Allen Test Performed? Yes
[2020-09-12 05:51] LABS: ALT 30 U/L (4-34); AST 29 U/L (14-36); African American GFR (CKD) >90 (>60 ml/min/1.73 sqM); Albumin 2.4 g/dL (3.5-5.0); Alkaline Phosphatase 82 U/L (38-126); Anion Gap 2 mmol/L; Blood Urea Nitrogen 27 mg/dL (7-17); C Reactive Protein 10.3 mg/L (<10.0); Calcium 7.7 mg/dL (8.4-10.2); Carbon Dioxide 26 mmol/L (22-30); Chloride 112 mmol/L (98-107); Glucose 181 mg/dL (74-99); Non-African American GFR(CKD) >90 (>60 ml/min/1.73 sqM); Potassium 3.5 mmol/L (3.5-5.1); Sodium 140 mmol/L (137-145); Total Bilirubin 0.5 mg/dL (0.2-1.3); Total Protein 4.5 g/dL (6.3-8.2)
[2020-09-12 05:58] LABS: D-Dimer 10.2 mg/L FEU (<0.60)
[2020-09-12 06:05] LABS: Glucose,Whole Blood 198 mg/dL (75-99)
[2020-09-12 06:08] LABS: HGB 10.2 gm/dL (11.4-16.0); MCH 29.1 pg (25.0-35.0); MCHC 34.1 g/dL (31.0-37.0); MCV 85.2 fL (80.0-100.0); Mean Platelet Volume 7.6; Platelet Count 430 k/uL (150-450); RBC 3.52 m/uL (3.80-5.40); RDW 14.1 % (11.5-15.5); WBC 14.2 k/uL (3.8-10.6)
[2020-09-12] MEDS ORDERED: Potassium Replacement Protocol 1 EACH MISC MISCELLANE PRN (06:42)
[2020-09-12] MEDS: POTASSIUM BICARBONATE/CIT AC 20 MEQ TABLET.EFF NG-TUBE SCH ×2 (06:50→09:29)
[2020-09-12] MEDS: ALBUTEROL HFA INHALER INHALATION SCH ×4 (07:46→20:10)
[2020-09-12] MEDS ORDERED: FUROSEMIDE 10 MG/ML 4 ML VIAL IV STA (09:06)
--- NOTE | 2020-09-12 09:07 | XR ---
EXAMINATION TYPE: XR chest 1V portable DATE OF EXAM: 09/12/2020 COMPARISON: 09/11/2020 INDICATION: Tube placement TECHNIQUE: Single frontal view of the chest is obtained. FINDINGS: The heart size is normal. The pulmonary vasculature is normal. Right lower lobe consolidation is present. Some scattered mild left lower lobe infiltrate is present. Endotracheal tube tip is above the jason. Nasogastric tube transverses the thorax. Left central veno us catheter is present with tip in the proximal right atrium. IMPRESSION: 1. Right lower lobe and milder left lower lobe infiltrate, worsening from comparison. 2. Lines and catheters discussed above
[2020-09-12 09:14] LABS: Band Neutrophils % 5 %; Eosinophils # (M) 0.14 k/uL (0-0.7); Lymphocytes # (M) 0.28 k/uL (1.0-4.8); Metamyelocytes # (M) 0.43 k/uL (0); Metamyelocytes % 3 %; Monocytes # (M) 0.57 k/uL (0-1.0); Myelocytes # (M) 0.14 k/uL (0); Myelocytes % 1 %; Neutrophils % (M) 85 %; Nucleated Red Blood Cells 0 /100 WBC (0-0); Total Cells Counted 200
[2020-09-12] MEDS: CITALOPRAM HYDROBROMIDE 20 MG TAB PO SCH (09:29)
[2020-09-12] MEDS: lisinopriL 20 MG TAB PO SCH (09:29)
[2020-09-12] MEDS: ENOXAPARIN 40 MG/0.4 ML SYRINGE SQ SCH ×2 (09:29→21:21)
[2020-09-12] MEDS: CHOLECALCIFEROL 25 MCG (1000 IU) TABLET PO SCH (09:29)
[2020-09-12] MEDS: CHLORHEXIDINE GLUCONATE 15 ML CUP MUCOUS MEM SCH ×2 (09:29→21:21)
[2020-09-12] MEDS: PANTOPRAZOLE 40 MG/10 ML VIAL IVP SCH ×2 (09:30→21:21)
[2020-09-12] MEDS: ASCORBIC ACID 500 MG TAB PO SCH (09:30)
[2020-09-12] MEDS: METOPROLOL TARTRATE 50 MG TAB PO SCH (09:30)
[2020-09-12] MEDS: ZINC SULFATE 220 MG CAP PO SCH (09:30)
--- NOTE | 2020-09-12 11:52 | P.PN ---
Subjective Progress Note Date: 09/12/20 Principal diagnosis: Acute hypoxemic respiratory failure 65-year-old white female patient of Dr. Haq with past medical history of hypertension, hypothyroidism, IBS, hiatal hernia, renal disorder, who presented to the emergency department on 09/05/2020 with symptoms of nausea, vomiting, diarrhea, she reported some cough, fever and generalized weakness, but no overt shortness of breath. Patient had exposure to COVID 19 from her son and daughter. Patient had decreased oral intake, she came in with profound generalized weakness and not being able to keep fluids down. Chest x-ray showed bilateral patchy airspace pneumonia, COVID 19 PCR was positive. Patient was lymphopenic with lymphocytic 0.9, white blood cell count is 3.5, hemoglobin is 12.5, d-dimer 0.61, troponin was less than 0.012, pro calcitonin level was 0.07. LDH was 1550, CRP is 130.8, ferritin level is 337.5. Presentation patient was severely hypoxic, with O2 saturations in the low 80s on 100% FiO2. Blood gas was obtained showing pO2 of 44, pCO2 of 36, pH of 7.46, patient was intubated and placed on mechanical ventilator. She is currently sedated and paralyzed, and on assist control mode of ventilation with a rate of 28, tacrolimus 400, FiO2 100%, and PEEP of 14. This morning blood gases showed pO2 of 50, pCO2 36, and pH of 7.44. Currently patient sedated and paralyzed on [facility] ventilator. 0.9 at 130 in the per hour, and Nimbex is at 2 mics per kilo per minute, Diprivan is a 50 mics per kilo per minute, and fentanyl drip is currently is 1 mcg/kg/m. Patient has been started on IV steroids 60 mg every 6 hours of Solu-Medrol, she is on Lovenox 40 mg daily. She'll be given a dose of convalescent plasma and she is awaiting a dose of Tocili. Follow-up chest x-ray today shows increased bilateral patchy opacities, and trace right pleural effusion. CTA chest was completed showing no evidence of pulmonary embolism. On 09/08/2020 patient seen in follow-up in the intensive care units. She remains sedated, intubated, currently on assist control with a rate of 20s, tidal volume is 450, FiO2 70%, and PEEP of 18, this morning blood gases show pO2 of 63, pCO2 33, pH is 7.38. Patient is currently on 0.9 at 130 and no per hour, Diprivan is a 35 mics per kilo per minute, fentanyl drip is at 1 adam per kilo per minute, and Nexium is at 1.45 mics per kilo per minute. She is noted to be hypothermic early this morning with a temp of 93.4F. White blood cell count is 5.4, hemoglobin is 8.8, facet, 0.8, d-dimer is 1.67, sodium is 139, potassium is 3.3, chloride is 114, CO2 is 19, BUN is 13, creatinine 0.53, CRP is 216, AST is 40, ALT is 19, alkaline phosphatase is 80, troponin was less than 0.012. LDH is pending today. Progesterone level was negative at 0.07, urinalysis showed no evidence of infection. Blood cultures were negative. She remains on Lovenox 40 mg twice daily, IV Solu-Medrol 60 g every 6 hours, she received 480 mg of Tocilizumab. Received 1 unit of convalescent plasma. She is receiving nutritional support in the form of vital HP at 20 with a goal of 29. Has been tolerating tube feedings, fluid boluses were given yesterday, she still continues on 0.9 NS at 130 ML per hour and her urine output is marginal, and patient will receive additional liter fluid bolus Progress note dated 09/09/2020. 65-year-old female, seen again today in room 263. She remains on mechanical ventilator. She is on the volume assist control mode, rate of 28, tidal volume 400, FiO2 70%, and a PEEP of 18. Blood gases show pO2 of 83, pCO2 of 37, and a pH is 7.37. Currently, she is on propofol at 50 g kilogram per minute, fentanyl 1 mcg/kg/h, Nimbex at 1.5 mcg/kg/m, saline at 130 mL an hour, vital high protein at 29 mL an hour, which is goal. We will attempt to get her off the Nimbex today if possible. White count 10.5, hemoglobin 9, hematocrit 26.6, platelet count 352,000. D-dimer is 3. Sodium 144, potassium 4.2, chlorides 118, CO2 22, anion gap 4, BUN 17, creatinine 0.59. Calcium 7.3. LDH 1453, and C-reactive protein is 80.1. Chest x-ray shows diffuse bilateral airspace disease which is stable. Progress note dated 09/10/2020. The patient is again seen in the intensive care unit, room 263. She remains on mechanical ventilation. She is on the volume assist control mode, rate 28, tidal volume 400, FiO2 70%, and PEEP of 18. Arterial blood gases show a PaO2 of 69, PaCO2 of 38, and a pH of 7.38. The patient's getting propofol at 50 mcg/kg/m, fentanyl at 2 mcg/kg/h, Nimbex at 2 mcg/kg/m, saline, at 130 mL an hour, to be reduced to 75 mL an hour, Lasix 40 mg IV push 1, and vital high protein at goal, which is 29 mL an hour. Addition, she'll be placed on Lovenox 40 mg subcu twice a day. White count 12.7, hemoglobin 8.8, hematocrit 25.9, platelet count 360,000. D-dimer is 10.50. Sodium 144, potassium 4.2, chlorides 118, CO2 21, anion gap is 5, BUN 21, and creatinine 0.63. LDH is 1386. C- reactive protein is 33. Chest x-ray shows persistent but slightly improved bilateral infiltrates. Progress note dated 09/11/2020. 65-year-old female, again seen in the intensive care unit, and room 263. She remains on the mechanical ventilator, and the volume assist control mode. Her rate is set at 28, FiO2 is 60% to be dropped down to 50%, PEEP of 18, to be dropped to a PEEP of 15, and a tidal volume of 400. Arterial blood gases show a PaO2 of 167, pCO2 37, and a pH of 7.47. The patient was prone yesterday. In addition, the patient's on Cleveprex at 3 mg an hour, propofol at 50 mcg/kg/m, fentanyl 3 mcg/kg/h, and Nimbex at 2 mcg/kg/m. The patient's getting saline at 75 mL an hour, and vital high protein at 29, with a goal of 29 mL an hour. White count 16.9, hemoglobin 9.6, hematocrit 27.2, and platelet count 442,000. Sodium 145, potassium 3.6, chlorides 115, CO2 26, anion gap 4, BUN 20, creatinine 0.56. Chest x-ray shows bilateral patchy infiltrates. Progress note dated 09/12/2020. 65-year-old female again seen in the intensive care unit, room 263. She was admitted with a diagnosis of acute hypoxemic respiratory volume. The patient remains on the ventilator. She is on the volume assist control mode, rate 28, out of I'm 400, FiO2 50%, PEEP of 15. Blood gases show a PaO2 of 77, pCO2 35, pH is 7.49. She's on propofol at 60 g kilogram per minute, fentanyl at 3 mcg/kg/h, Nimbex at 3 mcg/kg/m, Cleveprex is 6 mg an hour, saline at 75 mL an hour and vital high protein at 10 mL an hour which is goal. White count 14.2, hematoma 10.2, hematocrit 30, and platelet count 430,000. Fibrinogen is 207. D-dimer 10.2. Sodium 140, potassium 3.5, chlorides 112, CO2 26, anion gap is 2, BUN 27, and creatinine 0.53. C-reactive protein is 10.3. Chest x-ray shows bilateral infiltrates, right greater than left. Objective - Vital Signs Vital signs: Vital Signs Temp 98.5 F 09/12/20 04:00 Pulse 64 09/12/20 07:00 Resp 28 H 09/12/20 07:00 BP 190/111 09/10/20 22:30 Pulse Ox 94 L 09/12/20 07:00 Intake & Output 09/11/20 09/12/20 09/12/20 18:59 06:59 18:59 Intake Total 1600.077 5237.314 88 Output Total 525 980 115 Balance 917.620 923.314 -27 Weight 79.4 kg 80.8 kg Intake: IV 900 933 78 Purnima flush 33 3 Sodium Chloride 0.9% 1, 900 900 75 000 ml @ 75 mls/hr IV . [id number] [facility] Rx#:[id number] Intake, IV Titration 484.620 760.314 Amount Cisatracurium 200 mg In 217.653 182.347 Sodium Chloride 0.9% 180 ml @ 1 MCG/KG/MIN 3.81 mls/hr IV .Q24H [facility] Rx#: [id number] Clevidipine Butyrate 25 66.967 127.967 mg In Empty Bag 1 bag @ 1 MG/HR 2 mls/hr IV .Q24H [facility] Rx#:[id number] fentaNYL (PF) 2,500 mcg 250 In Sodium Chloride 0.9% 200 ml @ Per Protocol IV .Q0M [facility] Rx#:[id number] propofoL 1,000 mg In 200 200 Empty Bag 1 bag @ Titrate IV .Q0M [facility] Rx#: [id number] Tube Feeding 58 120 10 Other 90 Output: Urine 525 980 115 Other: Voiding Method Indwelling Catheter Indwelling Catheter ABP, PAP, CO, CI - Last Documented Arterial Blood Pressure 144/70 - Exam No acute distress, oriented 3. The patient is sedated and intubated and on the mechanical ventilator. She is also chemically paralyzed. HEENT examination is grossly unremarkable. Orally placed endotracheal tube is noted. Neck supple. Full range of motion. No adenopathy thyromegaly or neck vein distention. Cardiovascular examination reveals regular rhythm rate. S1-S2 normal. No S3 or S4. No discernible murmur noted. Heart rate 64 bpm. Lungs reveal bilateral coarse rhonchi, and by basilar crackles. Breath sounds equal bilaterally. There are no wheezes. Abdomen soft bowel sounds are heard. No masses or tenderness. Extremities are intact. No cyanosis clubbing or edema. Skin is without rash or lesion. Neurologic examination is difficult to evaluate because of patient's currently sedated and paralyzed. - Labs CBC & Chem 7: 09/12/20 05:20 09/12/20 05:20 Labs: Abnormal Lab Results - Last 24 Hours (Table) 09/11/20 09/12/20 09/12/20 Range/Units 17:16 00:05 05:20 WBC 14.2 H (3.8-10.6) k/uL RBC 3.52 L (3.80-5.40) m/uL Hgb 10.2 L (11.4-16.0) gm/dL Hct 30.0 L (34.0-46.0) % Neutrophils # (Manual) 12.70 H (1.3-7.7) k/uL Lymphocytes # (Manual) 0.28 L (1.0-4.8) k/uL Metamyelocytes # (Man) 0.43 H (0) k/uL Myelocytes # (Manual) 0.14 H (0) k/uL D-Dimer (<0.60) mg/L FEU ABG pH (7.35-7.45) ABG pO2 (83-108) mmHg ABG HCO3 (21-25) mmol/L ABG Total CO2 (19-24) mmol/L Chloride (98-107) mmol/L BUN (7-17) mg/dL Glucose (74-99) mg/dL POC Glucose (mg/dL) 160 H 176 H (75-99) mg/dL Calcium (8.4-10.2) mg/dL C-Reactive Protein (<10.0) mg/L Total Protein (6.3-8.2) g/dL Albumin (3.5-5.0) g/dL 09/12/20 09/12/20 09/12/20 Range/Units 05:20 05:20 05:45 WBC (3.8-10.6) k/uL RBC (3.80-5.40) m/uL Hgb (11.4-16.0) gm/dL Hct (34.0-46.0) % Neutrophils # (Manual) (1.3-7.7) k/uL Lymphocytes # (Manual) (1.0-4.8) k/uL Metamyelocytes # (Man) (0) k/uL Myelocytes # (Manual) (0) k/uL D-Dimer 10.20 H (<0.60) mg/L FEU ABG pH 7.49 H (7.35-7.45) ABG pO2 77 L (83-108) mmHg ABG HCO3 27 H (21-25) mmol/L ABG Total CO2 28 H (19-24) mmol/L Chloride 112 H (98-107) mmol/L BUN 27 H (7-17) mg/dL Glucose 181 H (74-99) mg/dL POC Glucose (mg/dL) (75-99) mg/dL Calcium 7.7 L (8.4-10.2) mg/dL C-Reactive Protein 10.3 H (<10.0) mg/L Total Protein 4.5 L (6.3-8.2) g/dL Albumin 2.4 L (3.5-5.0) g/dL 09/12/20 Range/Units 06:02 WBC (3.8-10.6) k/uL RBC (3.80-5.40) m/uL Hgb (11.4-16.0) gm/dL Hct (34.0-46.0) % Neutrophils # (Manual) (1.3-7.7) k/uL Lymphocytes # (Manual) (1.0-4.8) k/uL Metamyelocytes # (Man) (0) k/uL Myelocytes # (Manual) (0) k/uL D-Dimer (<0.60) mg/L FEU ABG pH (7.35-7.45) ABG pO2 (83-108) mmHg ABG HCO3 (21-25) mmol/L ABG Total CO2 (19-24) mmol/L Chloride (98-107) mmol/L BUN (7-17) mg/dL Glucose (74-99) mg/dL POC Glucose (mg/dL) 198 H (75-99) mg/dL Calcium (8.4-10.2) mg/dL C-Reactive Protein (<10.0) mg/L Total Protein (6.3-8.2) g/dL Albumin (3.5-5.0) g/dL Microbiology - Last 24 Hours (Table) 09/05/20 19:00 Blood Culture - Final Blood No Growth after 144 hours 09/05/20 18:45 Blood Culture - Final Blood No Growth after 144 hours Assessment and Plan Assessment: #1. Acute hypoxic respiratory failure related to acute COVID 19 pneumonia, patient was admitted to the hospital on 09/05/2020, transfer to the intensive care unit on 09/07/2020 and intubated on 09/07/2020, will receive a dose of Actemra 1, and, convalescent plasma 1 on 09/07/2020 #2. Increased d-dimer related to the above with no CT evidence of pulmonary embolism #3. Increased inflammatory markers #4. Hypertension #5. Hypothyroidism #6. Never smoker #7. IBS #8. Raynaud's Plan: Plan dated 09/09/2020. Currently, the patient remains on the chemical ventilator. We'll attempt to get her off the Nimbex today. The patient's blood gases are reasonable, although she is on FiO2 percent, and PEEP of 18. We will continue to follow make recommendations were appropriate. She's on appropriate medications including corticosteroids, and vitamins. In addition, she is being nourished and really at goal. Additional recommendations and suggestions are forthcoming. Prognosis is guarded. The patient has received convalescent plasma, as well as TOCI. Plan dated 09/10/2020. The patient remains on the mechanical ventilator. Vent settings as above. She remains on propofol, fentanyl, and Nimbex. We will drop the IV rate from 1:30 down to 75 mL an hour. We'll also give her Lasix 40 mg IV push. She remains on tube feeds at goal. She's getting Lovenox 40 mg subcu twice a day. Additional recommendations and suggestions are forthcoming. Prognosis is guarded. She has not made much progress since being here in the intensive care unit. She did receive convalescent plasma and TOCI. Plan dated 09/11/2020. The patient remains on the mechanical ventilator. The patient was proned to yesterday. Her oxygenation has improved. The FiO2 will be dropped from 60 to 50%. In addition, the PEEP was dropped from 18 down to 15 cm water. The PaO2 on today's blood gases 167. She remains on Cleveprex, propofol, fentanyl, and Nimbex. She is getting tube feeds at goal. Prognosis is guarded. X-rays, lab s, and medications are all reviewed. Continue to follow make recommendations were appropriate. In the end, the patient may require a tracheostomy tube and PEG tube. Plan dated 09/12/2020. The patient remains on the mechanical ventilator. Her oxygenation is a bit improved. She remains on propofol, fentanyl, Nimbex, Cleveprex, and nutrition. We will attempt to get her off Nimbex today. Additional recommendations and suggestions are forthcoming. The patient did receive convalescent plasma and TOCI. Prognosis remains guarded. Labs, x-rays, and medications are all reviewed. In the end, the patient may require tracheostomy tube and PEG tube placement. Additional recommendations and suggestions are forthcoming. Time with Patient: Greater than 30
[2020-09-12 11:56] LABS: Glucose,Whole Blood 209 mg/dL (75-99)
[2020-09-12] MEDS: SODIUM CHLORIDE 0.9% 1,000 ML IV SCH ×2 (14:19→22:40)
[2020-09-12] MEDS: amLODIPine 5 MG TAB PO SCH (15:18)
[2020-09-12 17:35] LABS: Glucose,Whole Blood 167 mg/dL (75-99)
[2020-09-12] MEDS: ASPIRIN 81 MG PO SCH (21:21)
[2020-09-12] MEDS: MONTELUKAST 10 MG TAB PO SCH (21:21)
[2020-09-12] MEDS: MELATONIN 5 MG TABLET PO SCH (21:21)
[2020-09-12] MEDS: ATORVASTATIN 20 MG TAB PO SCH (21:21)
[2020-09-12] MEDS: MULTIVITAMINS, THERA 1 EACH TAB PO SCH (21:21)
[2020-09-12] MEDS: LORATADINE 10 MG TAB PO SCH (21:22)
[2020-09-12] MEDS: LEVOTHYROXINE 75 MCG TAB PO SCH (21:22)
--- NOTE | 2020-09-12 21:35 | P.PN ---
Progress Note - Text Progress Note Date: 09/12/20 Chief Complaint: Difficulty breathing/COVID positive History of presenting complaint 65-year-old female , whose PCP is Dr. Haq, states she's been exposed to Covid 19 from both her son and daughter who states she's had symptoms similar today for last 8 days which include nausea vomiting recently diarrhea rhinorrhea no overt shortness of breath she does have a cough also a fever and generalized weakness. decreased oral intake. She is here just because she is profoundly weak at this time. Not able to keep fluids down. Admitted with COVID 19 pneumonia. Acute hypoxic respiratory failure. Patient was given convalescent plasma. Dexamethasone, September 07: into respiratory distress. intubated. Given ACTEMRA. Convalescent plasma. , Today: ICU: Drips include: Propofol, Nimbex, fentanyl, Cleviprex. Ventilator: FiO2 50 with PEEP of 15. Telemetry: Sinus rhythm. 2 feeding Review of systems: Patient intubated Active Medications Acetaminophen (Acetaminophen Tab 325 Mg Tab) 650 mg PO Q6HR PRN PRN Reason: Mild Pain or Fever > 100.5 Last Admin: 09/06/20 12:25 Dose: 650 mg Documented by: Albuterol Sulfate (Albuterol Hfa Inhaler) 2 puff INHALATION RT-QID PRN PRN Reason: Shortness Of Breath Or Wheezing Albuterol Sulfate (Albuterol Hfa Inhaler) 4 puff INHALATION RT-QID [facility] Last Admin: 09/12/20 20:10 Dose: 4 puff Documented by: Amlodipine Besylate (Amlodipine 5 Mg Tab) 5 mg PO DAILY@1400 [facility] Last Admin: 09/12/20 15:18 Dose: 5 mg Documented by: Artificial Tears (Artificial Tears-Hypromellose Drops 15 Ml Btl) 1 drops BOTH EYES Q4H [facility] Last Admin: 09/12/20 20:21 Dose: 1 drops Documented by: Ascorbic Acid (Ascorbic Acid 500 Mg Tab) 1,000 mg PO DAILY [facility] Last Admin: 09/12/20 09:30 Dose: 1,000 mg Documented by: Aspirin (Aspirin 81 Mg) 81 mg PO [facility] Last Admin: 09/12/20 21:21 Dose: 81 mg Documented by: Atorvastatin Calcium (Atorvastatin 20 Mg Tab) 20 mg PO [facility] Last Admin: 09/12/20 21:21 Dose: 20 mg Documented by: Chlorhexidine Gluconate (Chlorhexidine Gluconate 15 Ml Cup) 15 ml MUCOUS MEM BID [facility] Last Admin: 09/12/20 21:21 Dose: 15 ml Documented by: Cholecalciferol (Cholecalciferol 25 Mcg (1000 Iu) Tablet) 125 mcg PO DAILY [facility] Last Admin: 09/12/20 09:29 Dose: 125 mcg Documented by: Citalopram Hydrobromide (Citalopram Hydrobromide 20 Mg Tab) 40 mg PO DAILY [facility] Last Admin: 09/12/20 09:29 Dose: 40 mg Documented by: Enoxaparin Sodium (Enoxaparin 40 Mg/0.4 Ml Syringe) 40 mg SQ BID [facility] Last Admin: 09/12/20 21:21 Dose: 40 mg Documented by: Propofol 1,000 mg/ IV Solution 100 mls @ 0 mls/hr IV .Q0M [facility]; Protocol Last Admin: 09/12/20 15:19 Dose: 60 mcg/kg/min, 28.584 mls/hr Documented by: Cisatracurium Besylate 200 mg/ (Sodium Chloride) 200 mls @ 3.81 mls/hr IV .Q24H [facility]; Protocol Last Admin: 09/12/20 21:20 Dose: 3 mcg/kg/min, 11.431 mls/hr Documented by: Sodium Chloride (Saline 0.9%) 1,000 mls @ 75 mls/hr IV .[id number] [facility] Last Admin: 09/12/20 14:19 Dose: Not Given Documented by: Clevidipine 25 mg/ IV Solution 50 mls @ 2 mls/hr IV .Q24H [facility]; Protocol Last Admin: 09/12/20 15:18 Dose: 4 mg/hr, 8 mls/hr Documented by: Fentanyl Citrate 2,500 mcg/ (Sodium Chloride) 250 mls @ 0 mls/hr IV .Q0M [facility]; Protocol Last Admin: 09/12/20 17:50 Dose: 3 mcg/kg/hr, 24.24 mls/hr Documented by: Insulin Aspart (Insulin Aspart (Novolog) 100 Unit/Ml Vial) 0 unit SQ Q6H [facility]; Protocol Last Admin: 09/12/20 18:05 Dose: 3 unit Documented by: Lactulose (Lactulose 20 Gm/30 Ml Cup) 30 gm PO BID PRN PRN Reason: Constipation Levothyroxine Sodium (Levothyroxine 75 Mcg Tab) 75 mcg PO [id number]@0630 [facility] Last Admin: 09/11/20 06:44 Dose: 75 mcg Documented by: Levothyroxine Sodium (Levothyroxine 75 Mcg Tab) 37.5 mcg PO SA [facility] Last Admin: 09/12/20 21:22 Dose: 37.5 mcg Documented by: Lisinopril (Lisinopril 20 Mg Tab) 20 mg PO DAILY [facility] Last Admin: 09/12/20 09:29 Dose: 20 mg Documented by: Loratadine (Loratadine 10 Mg Tab) 10 mg PO [facility] Last Admin: 09/12/20 21:22 Dose: 10 mg Documented by: Melatonin (Melatonin 5 Mg Tablet) 5 mg PO [facility] Last Admin: 09/12/20 21:21 Dose: 5 mg Documented by: Methylprednisolone Sodium Succinate (Methylprednisolone Sod Succi 125 Mg/2 Ml Vial) 60 mg IV Q6HR [facility] Last Admin: 09/12/20 18:05 Dose: 60 mg Documented by: Metoprolol Tartrate (Metoprolol Tartrate 50 Mg Tab) 100 mg PO DAILY [facility] Last Admin: 09/12/20 09:30 Dose: 100 mg Documented by: Miscellaneous Information (Potassium Replacement Protocol 1 Each Misc) 1 each MISCELLANE DAILY PRN; Protocol PRN Reason: Per Protocol Miscellaneous Information (Potassium Replacement Protocol 1 Each Misc) 1 each MISCELLANE DAILY PRN; Protocol PRN Reason: Per Protocol Montelukast Sodium (Montelukast 10 Mg Tab) 10 mg PO [facility] Last Admin: 09/12/20 21:21 Dose: 10 mg Documented by: Multivitamins (Multivitamins, Thera 1 Each Tab) 1 each PO HS [facility] Last Admin: 09/12/20 21:21 Dose: 1 each Documented by: Naloxone HCl (Naloxone 0.4 Mg/Ml 1 Ml Vial) 0.2 mg IV Q2M PRN PRN Reason: Opioid Reversal Pantoprazole Sodium (Pantoprazole 40 Mg/10 Ml Vial) 40 mg IVP BID [facility] Last Admin: 09/12/20 21:21 Dose: 40 mg Documented by: Zinc Sulfate (Zinc Sulfate 220 Mg Cap) 220 mg PO DAILY [facility] Last Admin: 09/12/20 09:30 Dose: 220 mg Documented by: On examination: VITAL SIGNS: 98, 62, 28, 1 54 x 69, 94% on the ventilator GENERAL APPEARANCE: laying in bed, intubated . ETT, OGtube-2 feeding HEENT: Endotracheal tube PSYCHIATRY: Unable to assess Rest of exam as per pulmonary nursing INVESTIGATIONS, reviewed in the clinical context: September 12: WBC 14.2 hemoglobin 10.2 d-dimer 10.2 potassium 3.5 creatinine 0.53 CRP 10.3 September 11: WBC 16.9 hemoglobin 9.6 platelets 442 potassium 3.6 creatinine 0.56 CR be 16.6 September 10: WBC 12.7 hemoglobin 8.8 platelets 360 d-dimer 10.5 potassium 4.2 creatinine 0.63 CRP 33 September 09: WBC 10.5 hemoglobin 9 at bedtime 352 d-dimer 3.0 potassium 4.2 creatinine 0.59 CRP 80.1 September 08: WBC 5.4 hemoglobin 8.8 platelets 237 d-dimer 1.67. Potassium 3.3 creatinine 0.53 CRP 216 September 07: WBC 5.7 hemoglobin 9.2 platelets 250 potassium 3.8 creatinine 0.73 troponin I 0.084 albumin 2.6 Chest x-ray film personally reviewed by me-[September 07: Bilateral infiltrates, confluent more so in the lower zones and metolazone EKG tracing personally reviewed by me-normal sinus rhythm. Nonspecific changes CT [place] chest: Extensive bilateral infiltrates with adenopathy. No PE Blood cultures: Negative Admission labs: Troponin I less than 0.012 Assessment and plan Acute hypoxic respiratory-slow to respond - intubated on September 07. On the ventilator-50 %. PEEP 15 Interstitial pneumonia secondary to COVID-19: Not improving -Receiving Lovenox, dexamethasone, vitamin C vitamin D, Pepcid, zinc. Received ACTEMRA and convalescent plasma Hypothyroidism; - levothyroxine 75 MCG daily Essential Hypertension; -metoprolol 100 mg daily, lisinopril 5 mg daily, Norvasc 10 mg daily Hyperlipidemia; -continue with home statin therapy Asthma; not in exacerbation; -continue singular 10 mg daily home inhaler therapy GERD: - Continue with PPI Irritable bowel syndrome: -Follow clinically Raynauds phenomenon. - Follow clinically Diabetes mellitus type 2; uncontrolled with hyperglycemia -hold metformin. Follow Accu-Cheks. Normocytic anemia. -Follow H&H Acute hypoalbuminemia: -Acute phase reactant Obesity BMI 31.4 -To follow outpatient for weight loss measures CODE STATUS; full code Patient remains rather critically ill. In the ICU. Follow with guide plant
[2020-09-12 23:54] LABS: Glucose,Whole Blood 192 mg/dL (75-99)
[2020-09-13] MEDS: INSULIN ASPART (NovoLOG) 100 UNIT/ML VIAL SQ SCH ×4 (00:13→18:13)
[2020-09-13] MEDS: methylPREDNISolone SOD SUCCI 125 MG/2 ML VIAL IV SCH ×3 (00:13→12:22)
[2020-09-13] MEDS: ARTIFICIAL TEARS-HYPROMELLOSE DROPS 15 ML BTL BOTH EYES SCH ×6 (00:31→21:23)
[2020-09-13] MEDS: CLEVIDIPINE BUTYRATE 25 MG in EMPTY BAG 1 BAG IV SCH ×3 (01:23→21:24)
[2020-09-13] MEDS: fentaNYL (PF) 2,500 MCG in SODIUM CHLORIDE 0.9% 200 ML IV SCH ×2 (05:14→17:45)
[2020-09-13 05:40] LABS: Basophils % (A) 0 %; Eosinophils % (A) 0 %; HCT 28.8 % (34.0-46.0); HGB 9.3 gm/dL (11.4-16.0); Lymphocytes # (A) 1.1 k/uL (1.0-4.8); Lymphocytes % (A) 8 %; MCHC 32.3 g/dL (31.0-37.0); MCV 86.5 fL (80.0-100.0); Mean Platelet Volume 7.9; Monocytes # (A) 0.9 k/uL (0-1.0); Monocytes % (A) 7 %; Neutrophils # (A) 10.7 k/uL (1.3-7.7); Neutrophils % (A) 83 %; Platelet Count 420 k/uL (150-450); RBC 3.33 m/uL (3.80-5.40); RDW 14.6 % (11.5-15.5); WBC 12.8 k/uL (3.8-10.6)
[2020-09-13 05:48] LABS: D-Dimer 8.21 mg/L FEU (<0.60)
[2020-09-13 05:53] LABS: ABG HCO3 29 mmol/L (21-25); ABG Oxygen Saturation 96.6 % (94-97); ABG PCO2 33 mmHg (35-45); ABG PH 7.54 (7.35-7.45); ABG PO2 83 mmHg (83-108); ABG TCO2 30 mmol/L (19-24); Allen Test Performed? Yes
[2020-09-13 05:55] LABS: ALT 36 U/L (4-34); AST 33 U/L (14-36); African American GFR (CKD) >90 (>60 ml/min/1.73 sqM); Albumin 2.4 g/dL (3.5-5.0); Alkaline Phosphatase 70 U/L (38-126); Anion Gap 4 mmol/L; Blood Urea Nitrogen 31 mg/dL (7-17); Calcium 7.6 mg/dL (8.4-10.2); Carbon Dioxide 26 mmol/L (22-30); Chloride 110 mmol/L (98-107); Glucose 165 mg/dL (74-99); Non-African American GFR(CKD) >90 (>60 ml/min/1.73 sqM); Sodium 140 mmol/L (137-145); Total Bilirubin 0.5 mg/dL (0.2-1.3); Total Protein 4.5 g/dL (6.3-8.2)
[2020-09-13 06:08] LABS: Glucose,Whole Blood 187 mg/dL (75-99)
[2020-09-13] MEDS ORDERED: POTASSIUM BICARBONATE/CIT AC 20 MEQ TABLET.EFF PO ONE (06:13)
[2020-09-13] MEDS: CHLORHEXIDINE GLUCONATE 15 ML CUP MUCOUS MEM SCH ×2 (07:54→22:37)
[2020-09-13] MEDS: ASCORBIC ACID 500 MG TAB PO SCH (07:54)
[2020-09-13] MEDS: CITALOPRAM HYDROBROMIDE 20 MG TAB PO SCH (07:55)
[2020-09-13] MEDS: CHOLECALCIFEROL 25 MCG (1000 IU) TABLET PO SCH (07:55)
[2020-09-13] MEDS: ENOXAPARIN 40 MG/0.4 ML SYRINGE SQ SCH (07:56)
[2020-09-13] MEDS: ALBUTEROL HFA INHALER INHALATION SCH ×4 (07:56→19:01)
[2020-09-13] MEDS: lisinopriL 20 MG TAB PO SCH ×2 (07:56→22:38)
[2020-09-13] MEDS: METOPROLOL TARTRATE 50 MG TAB PO SCH (07:56)
[2020-09-13] MEDS: PANTOPRAZOLE 40 MG/10 ML VIAL IVP SCH ×2 (07:57→22:39)
[2020-09-13] MEDS: ZINC SULFATE 220 MG CAP PO SCH (07:58)
[2020-09-13 09:36] LABS: Ferritin 99.2 ng/mL (10.0-291.0)
--- NOTE | 2020-09-13 10:37 | XR ---
EXAMINATION TYPE: XR chest 1V DATE OF EXAM: 09/13/2020 COMPARISON: 09/12/2020 INDICATION: Short of breath TECHNIQUE: Single frontal view of the chest is obtained. FINDINGS: The heart size is normal. The pulmonary vasculature is normal. Right lower lobe infiltrate is present. Some milder scattered infiltrates through the right upper and left lower lung eli. Findings are improving from comparison. Endotracheal tube tip is above the jason. Nasogastric tube transverses the thorax. Left central veno us catheter tip is in the proximal right atrium. IMPRESSION: 1. Improving bilateral lung infiltrates. 2. Lines and catheters discussed above.
[2020-09-13 12:01] LABS: Glucose,Whole Blood 181 mg/dL (75-99)
--- NOTE | 2020-09-13 12:55 | P.PN ---
Subjective Progress Note Date: 09/13/20 Principal diagnosis: Acute hypoxemic respiratory failure 65-year-old white female patient of Dr. Haq with past medical history of hypertension, hypothyroidism, IBS, hiatal hernia, renal disorder, who presented to the emergency department on 09/05/2020 with symptoms of nausea, vomiting, diarrhea, she reported some cough, fever and generalized weakness, but no overt shortness of breath. Patient had exposure to COVID 19 from her son and daughter. Patient had decreased oral intake, she came in with profound generalized weakness and not being able to keep fluids down. Chest x-ray showed bilateral patchy airspace pneumonia, COVID 19 PCR was positive. Patient was lymphopenic with lymphocytic 0.9, white blood cell count is 3.5, hemoglobin is 12.5, d-dimer 0.61, troponin was less than 0.012, pro calcitonin level was 0.07. LDH was 1550, CRP is 130.8, ferritin level is 337.5. Presentation patient was severely hypoxic, with O2 saturations in the low 80s on 100% FiO2. Blood gas was obtained showing pO2 of 44, pCO2 of 36, pH of 7.46, patient was intubated and placed on mechanical ventilator. She is currently sedated and paralyzed, and on assist control mode of ventilation with a rate of 28, tacrolimus 400, FiO2 100%, and PEEP of 14. This morning blood gases showed pO2 of 50, pCO2 36, and pH of 7.44. Currently patient sedated and paralyzed on [facility] ventilator. 0.9 at 130 in the per hour, and Nimbex is at 2 mics per kilo per minute, Diprivan is a 50 mics per kilo per minute, and fentanyl drip is currently is 1 mcg/kg/m. Patient has been started on IV steroids 60 mg every 6 hours of Solu-Medrol, she is on Lovenox 40 mg daily. She'll be given a dose of convalescent plasma and she is awaiting a dose of Tocili. Follow-up chest x-ray today shows increased bilateral patchy opacities, and trace right pleural effusion. CTA chest was completed showing no evidence of pulmonary embolism. On 09/08/2020 patient seen in follow-up in the intensive care units. She remains sedated, intubated, currently on assist control with a rate of 20s, tidal volume is 450, FiO2 70%, and PEEP of 18, this morning blood gases show pO2 of 63, pCO2 33, pH is 7.38. Patient is currently on 0.9 at 130 and no per hour, Diprivan is a 35 mics per kilo per minute, fentanyl drip is at 1 adam per kilo per minute, and Nexium is at 1.45 mics per kilo per minute. She is noted to be hypothermic early this morning with a temp of 93.4F. White blood cell count is 5.4, hemoglobin is 8.8, facet, 0.8, d-dimer is 1.67, sodium is 139, potassium is 3.3, chloride is 114, CO2 is 19, BUN is 13, creatinine 0.53, CRP is 216, AST is 40, ALT is 19, alkaline phosphatase is 80, troponin was less than 0.012. LDH is pending today. Progesterone level was negative at 0.07, urinalysis showed no evidence of infection. Blood cultures were negative. She remains on Lovenox 40 mg twice daily, IV Solu-Medrol 60 g every 6 hours, she received 480 mg of Tocilizumab. Received 1 unit of convalescent plasma. She is receiving nutritional support in the form of vital HP at 20 with a goal of 29. Has been tolerating tube feedings, fluid boluses were given yesterday, she still continues on 0.9 NS at 130 ML per hour and her urine output is marginal, and patient will receive additional liter fluid bolus Progress note dated 09/09/2020. 65-year-old female, seen again today in room 263. She remains on mechanical ventilator. She is on the volume assist control mode, rate of 28, tidal volume 400, FiO2 70%, and a PEEP of 18. Blood gases show pO2 of 83, pCO2 of 37, and a pH is 7.37. Currently, she is on propofol at 50 g kilogram per minute, fentanyl 1 mcg/kg/h, Nimbex at 1.5 mcg/kg/m, saline at 130 mL an hour, vital high protein at 29 mL an hour, which is goal. We will attempt to get her off the Nimbex today if possible. White count 10.5, hemoglobin 9, hematocrit 26.6, platelet count 352,000. D-dimer is 3. Sodium 144, potassium 4.2, chlorides 118, CO2 22, anion gap 4, BUN 17, creatinine 0.59. Calcium 7.3. LDH 1453, and C-reactive protein is 80.1. Chest x-ray shows diffuse bilateral airspace disease which is stable. Progress note dated 09/10/2020. The patient is again seen in the intensive care unit, room 263. She remains on mechanical ventilation. She is on the volume assist control mode, rate 28, tidal volume 400, FiO2 70%, and PEEP of 18. Arterial blood gases show a PaO2 of 69, PaCO2 of 38, and a pH of 7.38. The patient's getting propofol at 50 mcg/kg/m, fentanyl at 2 mcg/kg/h, Nimbex at 2 mcg/kg/m, saline, at 130 mL an hour, to be reduced to 75 mL an hour, Lasix 40 mg IV push 1, and vital high protein at goal, which is 29 mL an hour. Addition, she'll be placed on Lovenox 40 mg subcu twice a day. White count 12.7, hemoglobin 8.8, hematocrit 25.9, platelet count 360,000. D-dimer is 10.50. Sodium 144, potassium 4.2, chlorides 118, CO2 21, anion gap is 5, BUN 21, and creatinine 0.63. LDH is 1386. C- reactive protein is 33. Chest x-ray shows persistent but slightly improved bilateral infiltrates. Progress note dated 09/11/2020. 65-year-old female, again seen in the intensive care unit, and room 263. She remains on the mechanical ventilator, and the volume assist control mode. Her rate is set at 28, FiO2 is 60% to be dropped down to 50%, PEEP of 18, to be dropped to a PEEP of 15, and a tidal volume of 400. Arterial blood gases show a PaO2 of 167, pCO2 37, and a pH of 7.47. The patient was prone yesterday. In addition, the patient's on Cleveprex at 3 mg an hour, propofol at 50 mcg/kg/m, fentanyl 3 mcg/kg/h, and Nimbex at 2 mcg/kg/m. The patient's getting saline at 75 mL an hour, and vital high protein at 29, with a goal of 29 mL an hour. White count 16.9, hemoglobin 9.6, hematocrit 27.2, and platelet count 442,000. Sodium 145, potassium 3.6, chlorides 115, CO2 26, anion gap 4, BUN 20, creatinine 0.56. Chest x-ray shows bilateral patchy infiltrates. Progress note dated 09/12/2020. 65-year-old female again seen in the intensive care unit, room 263. She was admitted with a diagnosis of acute hypoxemic respiratory volume. The patient remains on the ventilator. She is on the volume assist control mode, rate 28, out of I'm 400, FiO2 50%, PEEP of 15. Blood gases show a PaO2 of 77, pCO2 35, pH is 7.49. She's on propofol at 60 g kilogram per minute, fentanyl at 3 mcg/kg/h, Nimbex at 3 mcg/kg/m, Cleveprex is 6 mg an hour, saline at 75 mL an hour and vital high protein at 10 mL an hour which is goal. White count 14.2, hematoma 10.2, hematocrit 30, and platelet count 430,000. Fibrinogen is 207. D-dimer 10.2. Sodium 140, potassium 3.5, chlorides 112, CO2 26, anion gap is 2, BUN 27, and creatinine 0.53. C-reactive protein is 10.3. Chest x-ray shows bilateral infiltrates, right greater than left. Progress note dated 09/13/2020. 65-year-old female, again seen in the intensive care unit, room 263. She was admitted with a diagnosis of acute hypoxemic respiratory failure. The patient remains on mechanical ventilator, on the volume assist control mode, rate 28, tidal volume 400, FiO2 50%, PEEP of 15. Arterial blood gases show a PaO2 of 83, PaCO2 33, pH is 7.54. The patient is on saline at 75 mL an hour, propofol at 60 mcg/kg/m, clubbing or milligrams an hour, fentanyl and 3 g kilogram per hour, Nimbex at 3 mcg/kg/m, and vital high protein at 10, which is goal. Today, we'll attempt to discontinue the Nimbex. White count 12.8, he will 9.3, hematocrit 28.8, and platelet count is 120,000. D-dimer is 8.21, sodium 140, potassium 4, chlorides 110, CO2 26, anion gap 4, BUN 31, creatinine 0.54. Chest x-ray shows stable to slightly improved bilateral infiltrates. Objective - Vital Signs Vital signs: Vital Signs Temp 99.5 F 09/13/20 03:00 Pulse 75 09/13/20 05:00 Resp 28 H 09/13/20 12:00 BP 190/111 09/10/20 22:30 Pulse Ox 95 09/13/20 08:00 Intake & Output 09/12/20 09/13/20 09/13/20 18:59 06:59 18:59 Intake Total 1646 1782.537 763.849 Output Total 2024 850 515 Balance -379 932.537 248.849 Weight 69.6 kg Intake: IV 936 936 453 Sodium Chloride 0.9% 1, 900 900 450 000 ml @ 75 mls/hr IV . [id number] [facility] Rx#:[id number] pressure bag 36 36 3 Intake, IV Titration 500 626.537 170.849 Amount Cisatracurium 200 mg In 195.47 140.982 Sodium Chloride 0.9% 180 ml @ 1 MCG/KG/MIN 3.81 mls/hr IV .Q24H [facility] Rx#: [id number] Clevidipine Butyrate 25 50 81.067 29.867 mg In Empty Bag 1 bag @ 1 MG/HR 2 mls/hr IV .Q24H [facility] Rx#:[id number] fentaNYL (PF) 2,500 mcg 250 250 In Sodium Chloride 0.9% 200 ml @ Per Protocol IV .Q0M [facility] Rx#:[id number] propofoL 1,000 mg In 200 100 Empty Bag 1 bag @ Titrate IV .Q0M [facility] Rx#: [id number] Tube Feeding 120 130 80 Other 90 90 60 Output: Urine 2024 850 515 Other: Voiding Method Indwelling Catheter Indwelling Catheter Indwelling Catheter # Voids 1 ABP, PAP, CO, CI - Last Documented Arterial Blood Pressure 170/46 - Exam No acute distress, oriented 3. The patient is sedated and intubated and on the mechanical ventilator. She is also chemically paralyzed. HEENT examination is grossly unremarkable. Orally placed endotracheal tube is noted. Neck supple. Full range of motion. No adenopathy thyromegaly or neck vein distention. Cardiovascular examination reveals regular rhythm rate. S1-S2 normal. No S3 or S4. No discernible murmur noted. Heart rate 75 bpm. Lungs reveal bilateral coarse rhonchi, and by basilar crackles. Breath sounds equal bilaterally. There are no wheezes. Abdomen soft bowel sounds are heard. No masses or tenderness. Extremities are intact. No cyanosis clubbing or edema. Skin is without rash or lesion. Neurologic examination is difficult to evaluate because of patient's currently sedated and paralyzed. - Labs CBC & Chem 7: 09/13/20 04:55 09/13/20 04:55 Labs: Abnormal Lab Results - Last 24 Hours (Table) 09/12/20 09/12/20 09/13/20 Range/Units 17:34 23:50 04:55 WBC 12.8 H (3.8-10.6) k/uL RBC 3.33 L (3.80-5.40) m/uL Hgb 9.3 L (11.4-16.0) gm/dL Hct 28.8 L (34.0-46.0) % Neutrophils # 10.7 H (1.3-7.7) k/uL Fibrinogen (200-500) mg/dL D-Dimer (<0.60) mg/L FEU ABG pH (7.35-7.45) ABG pCO2 (35-45) mmHg ABG HCO3 (21-25) mmol/L ABG Total CO2 (19-24) mmol/L Chloride (98-107) mmol/L BUN (7-17) mg/dL Glucose (74-99) mg/dL POC Glucose (mg/dL) 167 H 192 H (75-99) mg/dL Calcium (8.4-10.2) mg/dL ALT (4-34) U/L Total Protein (6.3-8.2) g/dL Albumin (3.5-5.0) g/dL 09/13/20 09/13/20 09/13/20 Range/Units 04:55 04:55 05:50 WBC (3.8-10.6) k/uL RBC (3.80-5.40) m/uL Hgb (11.4-16.0) gm/dL Hct (34.0-46.0) % Neutrophils # (1.3-7.7) k/uL Fibrinogen 170 L (200-500) mg/dL D-Dimer 8.21 H (<0.60) mg/L FEU ABG pH 7.54 H (7.35-7.45) ABG pCO2 33 L (35-45) mmHg ABG HCO3 29 H (21-25) mmol/L ABG Total CO2 30 H (19-24) mmol/L Chloride 110 H (98-107) mmol/L BUN 31 H (7-17) mg/dL Glucose 165 H (74-99) mg/dL POC Glucose (mg/dL) (75-99) mg/dL Calcium 7.6 L (8.4-10.2) mg/dL ALT 36 H (4-34) U/L Total Protein 4.5 L (6.3-8.2) g/dL Albumin 2.4 L (3.5-5.0) g/dL 09/13/20 09/13/20 Range/Units 06:04 11:59 WBC (3.8-10.6) k/uL RBC (3.80-5.40) m/uL Hgb (11.4-16.0) gm/dL Hct (34.0-46.0) % Neutrophils # (1.3-7.7) k/uL Fibrinogen (200-500) mg/dL D-Dimer (<0.60) mg/L FEU ABG pH (7.35-7.45) ABG pCO2 (35-45) mmHg ABG HCO3 (21-25) mmol/L ABG Total CO2 (19-24) mmol/L Chloride (98-107) mmol/L BUN (7-17) mg/dL Glucose (74-99) mg/dL POC Glucose (mg/dL) 187 H 181 H (75-99) mg/dL Calcium (8.4-10.2) mg/dL ALT (4-34) U/L Total Protein (6.3-8.2) g/dL Albumin (3.5-5.0) g/dL Assessment and Plan Assessment: #1. Acute hypoxic respiratory failure related to acute COVID 19 pneumonia, patient was admitted to the hospital on 09/05/2020, transfer to the intensive care unit on 09/07/2020 and intubated on 09/07/2020, will receive a dose of Actemra 1, and, convalescent plasma 1 on 09/07/2020 #2. Increased d-dimer related to the above with no CT evidence of pulmonary embolism #3. Increased inflammatory markers #4. Hypertension #5. Hypothyroidism #6. Never smoker #7. IBS #8. Raynaud's Plan: Plan dated 09/09/2020. Currently, the patient remains on the chemical ventilator. We'll attempt to get her off the Nimbex today. The patient's blood gases are reasonable, although she is on FiO2 percent, and PEEP of 18. We will continue to follow make recommendations were appropriate. She's on appropriate medications including corticosteroids, and vitamins. In addition, she is being nourished and really at goal. Additional recommendations and suggestions are forthcoming. Prognosis is guarded. The patient has received convalescent plasma, as well as TOCI. Plan dated 09/10/2020. The patient remains on the mechanical ventilator. Vent settings as above. She remains on propofol, fentanyl, and Nimbex. We will drop the IV rate from 1:30 down to 75 mL an hour. We'll also give her Lasix 40 mg IV push. She remains on tube feeds at goal. She's getting Lovenox 40 mg subcu twice a day. Additional recommendations and suggestions are forthcoming. Prognosis is guarded. She has not made much progress since being here in the intensive care unit. She did receive convalescent plasma and TOCI. Plan dated 09/11/2020. The patient remains on the mechanical ventilator. The patient was proned to yesterday. Her oxygenation has improved. The FiO2 will be dropped from 60 to 50%. In addition, the PEEP was dropped from 18 down to 15 cm water. The PaO2 on today's blood gases 167. She remains on Cleveprex, propofol, fentanyl, and Nimbex. She is getting tube feeds at goal. Prognosis is guarded. X-rays, labs, and medications are all reviewed. Continue to follow make recommendations were appropriate. In the end, the patient may require a tracheostomy tube and PEG tube. Plan dated 09/12/2020. The patient remains on the mechanical ventilator. Her oxygenation is a bit improved. She remains on propofol, fentanyl, Nimbex, Cleveprex, and nutrition. We will attempt to get her off Nimbex today. Additional recommendations and suggestions are forthcoming. The patient did receive convalescent plasma and TOCI. Prognosis remains guarded. Labs, x-rays, and medications are all reviewed. In the end, the patient may require tracheostomy tube and PEG tube placement. Additional recommendations and suggestions are forthcoming. Plan dated 09/13/2020. The patient remains on the mechanical ventilator. We will attempt to DC the Nimbex today. The patient remains on Cleveprex to lower the blood pressure. The patient is getting nourished with the bilateral high protein at goal. Blood gases have been reviewed. Chest x-ray, medications, and labs are all reviewed. The patient's overall prognosis is guarded. She did receive convalescent plasma and TOCI. She will eventually probably end up with a tracheostomy tube and PEG tube. Additional recommendations and suggestions are forthcoming. We will continue to follow this patient and make recommendations. Time with Patient: Greater than 30
[2020-09-13 17:13] LABS: Glucose,Whole Blood 127 mg/dL (75-99)
[2020-09-13] MEDS: methylPREDNISolone SOD SUCCI 40 MG/ML 1 ML VIAL IV SCH (17:45)
[2020-09-13] MEDS: SODIUM CHLORIDE 0.9% 1,000 ML IV SCH (17:46)
--- NOTE | 2020-09-13 18:01 | P.PN ---
Progress Note - Text Progress Note Date: 09/13/20 Chief Complaint: Difficulty breathing/COVID positive History of presenting complaint 65-year-old female , whose PCP is Dr. Haq, states she's been exposed to Covid 19 from both her son and daughter who states she's had symptoms similar today for last 8 days which include nausea vomiting recently diarrhea rhinorrhea no overt shortness of breath she does have a cough also a fever and generalized weakness. decreased oral intake. She is here just because she is profoundly weak at this time. Not able to keep fluids down. Admitted with COVID 19 pneumonia. Acute hypoxic respiratory failure. Patient was given convalescent plasma. Dexamethasone, September 07: into respiratory distress. intubated. Given ACTEMRA. Convalescent plasma. , Today: ICU: Drips include: Propofol, Nimbex, fentanyl, Cleviprex. Ventilator: FiO2 50 with PEEP of 15. Telemetry: Sinus rhythm. Tube feeding. Blood pressure running high Review of systems: Patient intubated Active Medications Acetaminophen (Acetaminophen Tab 325 Mg Tab) 650 mg PO Q6HR PRN PRN Reason: Mild Pain or Fever > 100.5 Last Admin: 09/06/20 12:25 Dose: 650 mg Documented by: Albuterol Sulfate (Albuterol Hfa Inhaler) 2 puff INHALATION RT-QID PRN PRN Reason: Shortness Of Breath Or Wheezing Albuterol Sulfate (Albuterol Hfa Inhaler) 4 puff INHALATION RT-QID [facility] Last Admin: 09/13/20 16:13 Dose: 4 puff Documented by: Amlodipine Besylate (Amlodipine 5 Mg Tab) 5 mg PO BID [facility] Artificial Tears (Artificial Tears-Hypromellose Drops 15 Ml Btl) 1 drops BOTH EYES Q4H [facility] Last Admin: 09/13/20 16:25 Dose: Not Given Documented by: Ascorbic Acid (Ascorbic Acid 500 Mg Tab) 1,000 mg PO DAILY [facility] Last Admin: 09/13/20 07:54 Dose: 1,000 mg Documented by: Aspirin (Aspirin 81 Mg) 81 mg PO HS [facility] Last Admin: 09/12/20 21:21 Dose: 81 mg Documented by: Atorvastatin Calcium (Atorvastatin 20 Mg Tab) 20 mg PO [facility] Last Admin: 09/12/20 21:21 Dose: 20 mg Documented by: Chlorhexidine Gluconate (Chlorhexidine Gluconate 15 Ml Cup) 15 ml MUCOUS MEM BID [facility] Last Admin: 09/13/20 07:54 Dose: 15 ml Documented by: Cholecalciferol (Cholecalciferol 25 Mcg (1000 Iu) Tablet) 125 mcg PO DAILY [facility] Last Admin: 09/13/20 07:55 Dose: 125 mcg Documented by: Citalopram Hydrobromide (Citalopram Hydrobromide 20 Mg Tab) 40 mg PO DAILY [facility] Last Admin: 09/13/20 07:55 Dose: 40 mg Documented by: Enoxaparin Sodium (Enoxaparin 60 Mg/0.6 Ml Syringe) 60 mg SQ BID [facility] Propofol 1,000 mg/ IV Solution 100 mls @ 0 mls/hr IV .Q0M [facility]; Protocol Last Admin: 09/13/20 12:54 Dose: 60 mcg/kg/min, 25.056 mls/hr Documented by: Cisatracurium Besylate 200 mg/ (Sodium Chloride) 200 mls @ 3.81 mls/hr IV .Q24H [facility]; Protocol Last Titration: 09/13/20 10:00 Dose: 1 mcg/kg/min, 3.81 mls/hr Documented by: Sodium Chloride (Saline 0.9%) 1,000 mls @ 75 mls/hr IV .[id number] [facility] Last Admin: 09/13/20 17:46 Dose: 75 mls/hr Documented by: Clevidipine 25 mg/ IV Solution 50 mls @ 2 mls/hr IV .Q24H [facility]; Protocol Last Titration: 09/13/20 09:00 Dose: 2 mg/hr, 4 mls/hr Documented by: Fentanyl Citrate 2,500 mcg/ (Sodium Chloride) 250 mls @ 0 mls/hr IV .Q0M [facility]; Protocol Last Admin: 09/13/20 17:45 Dose: 3 mcg/kg/hr, 20.88 mls/hr Documented by: Insulin Aspart (Insulin Aspart (Novolog) 100 Unit/Ml Vial) 0 unit SQ Q6H [facility]; Protocol Last Admin: 09/13/20 12:22 Dose: 4 unit Documented by: Lactulose (Lactulose 20 Gm/30 Ml Cup) 30 gm PO BID PRN PRN Reason: Constipation Levothyroxine Sodium (Levothyroxine 75 Mcg Tab) 75 mcg PO [id number] [facility] Last Admin: 09/11/20 06:44 Dose: 75 mcg Documented by: Levothyroxine Sodium (Levothyroxine 75 Mcg Tab) 37.5 mcg PO SA [facility] Last Admin: 09/12/20 21:22 Dose: 37.5 mcg Documented by: Lisinopril (Lisinopril 20 Mg Tab) 20 mg PO BID [facility] Loratadine (Loratadine 10 Mg Tab) 10 mg PO [facility] Last Admin: 09/12/20 21:22 Dose: 10 mg Documented by: Melatonin (Melatonin 5 Mg Tablet) 5 mg PO [facility] Last Admin: 09/12/20 21:21 Dose: 5 mg Documented by: Methylprednisolone Sodium Succinate (Methylprednisolone Sod Succi 40 Mg/Ml 1 Ml Vial) 40 mg IV Q8HR [facility] Last Admin: 09/13/20 17:45 Dose: 40 mg Documented by: Metoprolol Tartrate (Metoprolol Tartrate 50 Mg Tab) 100 mg PO DAILY [facility] Last Admin: 09/13/20 07:56 Dose: 100 mg Documented by: Miscellaneous Information (Potassium Replacement Protocol 1 Each Misc) 1 each MISCELLANE DAILY PRN; Protocol PRN Reason: Per Protocol Miscellaneous Information (Potassium Replacement Protocol 1 Each Misc) 1 each MISCELLANE DAILY PRN; Protocol PRN Reason: Per Protocol Montelukast Sodium (Montelukast 10 Mg Tab) 10 mg PO [facility] Last Admin: 09/12/20 21:21 Dose: 10 mg Documented by: Multivitamins (Multivitamins, Thera 1 Each Tab) 1 each PO [facility] Last Admin: 09/12/20 21:21 Dose: 1 each Documented by: Naloxone HCl (Naloxone 0.4 Mg/Ml 1 Ml Vial) 0.2 mg IV Q2M PRN PRN Reason: Opioid Reversal Pantoprazole Sodium (Pantoprazole 40 Mg/10 Ml Vial) 40 mg IVP BID [facility] Last Admin: 09/13/20 07:57 Dose: 40 mg Documented by: Zinc Sulfate (Zinc Sulfate 220 Mg Cap) 220 mg PO DAILY [facility] Last Admin: 09/13/20 07:58 Dose: 220 mg Documented by: On examination: VITAL SIGNS: 99.2, 73, 18, 149/66, 92% on the ventilator GENERAL APPEARANCE: laying in bed, intubated . ETT, OGtube-2 feeding HEENT: Endotracheal tube PSYCHIATRY: Unable to assess Rest of exam as per pulmonary nursing INVESTIGATIONS, reviewed in the clinical context: September 13: WBC 12.8 hemoglobin 9.3 platelets 420 d-dimer 8.21 potassium 4 creatinine 0.5 for CRP 9 September 12: WBC 14.2 hemoglobin 10.2 d-dimer 10.2 potassium 3.5 creatinine 0.53 CRP 10.3 September 9: WBC 16.9 hemoglobin 9.6 platelets 442 potassium 3.6 creatinine 0.56 CR be 16.6 September 10: WBC 12.7 hemoglobin 8.8 platelets 360 d-dimer 10.5 potassium 4.2 creatinine 0.63 CRP 33 September 7: WBC 10.5 hemoglobin 9 at bedtime 352 d-dimer 3.0 potassium 4.2 creatinine 0.59 CRP 80.1 September 08: WBC 5.4 hemoglobin 8.8 platelets 237 d-dimer 1.67. Potassium 3.3 creatinine 0.53 CRP 216 September 07: WBC 5.7 hemoglobin 9.2 platelets 250 potassium 3.8 creatinine 0.73 troponin I 0.084 albumin 2.6 Chest x-ray film personally reviewed by me-[September 07: Bilateral infiltrates, confluent more so in the lower zones and metolazone EKG tracing personally reviewed by me-normal sinus rhythm. Nonspecific changes CT [place] chest: Extensive bilateral infiltrates with adenopathy. No PE Blood cultures: Negative Admission labs: Troponin I less than 0.012 Assessment and plan Acute hypoxic respiratory-slow to respond - intubated on September 07. On the ventilator-50 %. PEEP 15 Interstitial pneumonia secondary to COVID-19: Not improving -Receiving Lovenox, dexamethasone, vitamin C vitamin D, Pepcid, zinc. Received ACTEMRA and convalescent plasma Hypothyroidism; - levothyroxine 75 MCG daily Essential Hypertension; uncontrolled Increase lisinopril to 20 mg twice a day, amlodipine increased to 5 mg twice a day Hyperlipidemia; -continue with home statin therapy Asthma; not in exacerbation; -continue singular 10 mg daily home inhaler therapy GERD: - Continue with PPI Irritable bowel syndrome: -Follow clinically Raynauds phenomenon. - Follow clinically Diabetes mellitus type 2; uncontrolled with hyperglycemia -hold metformin. Follow Accu-Cheks. Normocytic anemia. -Follow H&H Acute hypoalbuminemia: -Acute phase reactant Obesity BMI 31.4 -To follow outpatient for weight loss measures CODE STATUS; full code Antihypertensives dose increased today. Cutback and Solu-Medrol. Prognosis guarded.
[2020-09-13] MEDS: LORATADINE 10 MG TAB PO SCH (22:37)
[2020-09-13] MEDS: MULTIVITAMINS, THERA 1 EACH TAB PO SCH (22:37)
[2020-09-13] MEDS: MONTELUKAST 10 MG TAB PO SCH (22:38)
[2020-09-13] MEDS: MELATONIN 5 MG TABLET PO SCH (22:38)
[2020-09-13] MEDS: ASPIRIN 81 MG PO SCH (22:39)
[2020-09-13] MEDS: amLODIPine 5 MG TAB PO SCH (22:39)
[2020-09-13] MEDS: ATORVASTATIN 20 MG TAB PO SCH (22:39)
[2020-09-13] MEDS: ENOXAPARIN 60 MG/0.6 ML SYRINGE SQ SCH (23:10)
[2020-09-13 23:33] LABS: Glucose,Whole Blood 156 mg/dL (75-99)
[2020-09-14] MEDS: methylPREDNISolone SOD SUCCI 40 MG/ML 1 ML VIAL IV SCH ×4 (00:01→23:44)
[2020-09-14] MEDS: ARTIFICIAL TEARS-HYPROMELLOSE DROPS 15 ML BTL BOTH EYES SCH ×7 (00:02→23:44)
[2020-09-14] MEDS: INSULIN ASPART (NovoLOG) 100 UNIT/ML VIAL SQ SCH ×5 (00:02→23:44)
[2020-09-14] MEDS: CLEVIDIPINE BUTYRATE 25 MG in EMPTY BAG 1 BAG IV SCH ×2 (02:10→16:52)
[2020-09-14 05:17] LABS: Glucose,Whole Blood 152 mg/dL (75-99)
[2020-09-14] MEDS: LEVOTHYROXINE 75 MCG TAB PO SCH (05:52)
[2020-09-14 05:53] LABS: African American GFR (CKD) >90 (>60 ml/min/1.73 sqM); Anion Gap 2 mmol/L; Blood Urea Nitrogen 29 mg/dL (7-17); Calcium 7.5 mg/dL (8.4-10.2); Carbon Dioxide 25 mmol/L (22-30); Chloride 112 mmol/L (98-107); Glucose 151 mg/dL (74-99); Non-African American GFR(CKD) >90 (>60 ml/min/1.73 sqM); Sodium 139 mmol/L (137-145)
--- NOTE | 2020-09-14 06:09 | P.PN ---
Subjective Progress Note Date: 09/14/20 On 09/14/2020 and seeing this patient for a follow-up as the patient is sara landaverde intubated on a mechanical ventilated with hypoxic respiratory failure due to COVID 19 related pneumonia and respiratory failure. The patient was intubated on 09/07/2020 and the patient has been treated with a convalescent plasma and received a dose of Actemra and the patient is currently on steroids. On today's evaluation, the patient remains sedated and the patient is currently on a combination of propofol 60 mics /kg per minute and the patient on fentanyl at 3 mcg/kg/h. The patient was also paralyzed and the paramedics was discontinued yesterday at around 10:00. Since then the patient has been off paralytics.. The patient remains on a mechanical ventilator on assist control mode at the rate of 28 with a tidal volume of 400 and FiO2 of 50% with a PEEP of 15. The patient blood gases is still pending from this morning.Chest x-ray showing diffuse bilateral pulmonary infiltrate, and the infiltrates are worse in the right lower lobe compared to the left although there is bilateral pulmonary infiltrates. The patient's subclavian triple-lumen catheter on the left and the patient has an ET tube that that being around 2 cm above the jason. and the patient remains on Lovenox 60 mg every 24 hours. The patient is receiving NovoLog insulin for size. Coverage blood sugar control. The patient is also utilizing clevidipine drip for blood pressure control at 2 mg an hour she is on Norvasc 5 mg by mouth twice a day. The patient is also on metoprolol 100 mg by mouth twice a day. The patient is on Zestril 20 mg by mouth twice a day for blood pressure control. The patient is on levothyroxine 75 g and 37.5 g orally on a daily basis. The patient is receiving enteral feeding for nutritional support. The most recent CRP level is at 9, the most recent LDH level was 1750. D-dimer was elevated at 8.2. Hypertension, hypothyroidism, IBS, hiatal hernia, and the patient initially presented to us on 09/05/2020 with gastrointestinal symptoms and shortness of breath. the morning labs show normal electrolytes, no other abnormalities are noted. The patient remains on IV Solu- Medrol 40 mg every 12 hours. Lovenox is a 60 mg every 12 hours and the patient d-dimer was 8.21. The peak airway pressures around 41. Static pressure is 33- 34. Objective - Vital Signs Vital signs: Vital Signs Temp 99 F 09/14/20 04:00 Pulse 68 09/14/20 05:00 Resp 19 09/14/20 05:00 BP 144/69 09/13/20 12:00 Pulse Ox 92 L 09/14/20 05:00 Intake & Output 09/13/20 09/13/20 09/14/20 06:59 18:59 06:59 Intake Total 9722.114 0129.982 1162.926 Output Total 850 840 900 Balance 932.537 913.982 262.926 Weight 69.6 kg 84.2 kg Intake: IV 936 903 825 Sodium Chloride 0.9% 1, 900 900 825 000 ml @ 75 mls/hr IV . [id number] [facility] Rx#:[id number] pressure bag 36 3 Intake, IV Titration 626.537 640.982 167.926 Amount Cisatracurium 200 mg In 195.47 140.982 Sodium Chloride 0.9% 180 ml @ 1 MCG/KG/MIN 3.81 mls/hr IV .Q24H [facility] Rx#: [id number] Clevidipine Butyrate 25 81.067 50.000 19.067 mg In Empty Bag 1 bag @ 1 MG/HR 2 mls/hr IV .Q24H [facility] Rx#:[id number] fentaNYL (PF) 2,500 mcg 250 250 In Sodium Chloride 0.9% 200 ml @ Per Protocol IV .Q0M [facility] Rx#:[id number] propofoL 1,000 mg In 100 200 148.859 Empty Bag 1 bag @ Titrate IV .Q0M [facility] Rx#: [id number] Tube Feeding 130 150 110 Other 90 60 60 Output: Urine 850 840 900 Other: Voiding Method Indwelling Catheter Indwelling Catheter Indwelling Catheter # Voids 1 ABP, PAP, CO, CI - Last Documented Arterial Blood Pressure 158/72 - Exam No acute distress. The patient is sedated and intubated and on the mechanical ventilator. She is also off paralytics, the tongue is swollen and protruded. The patient is off paralytics and the patient is quite segments of the mechanical ventilator. HEENT examination is grossly unremarkable. Orally placed endotracheal tube is noted. Neck supple. Full range of motion. No adenopathy thyromegaly or neck vein distention. Cardiovascular examination reveals regular rhythm rate. S1-S2 normal. No S3 or S4. No discernible murmur noted. Heart rate 75 bpm. Lungs reveal bilateral coarse rhonchi, and by basilar crackles. Breath sounds equal bilaterally. There are no wheezes. Abdomen soft bowel sounds are heard. No masses or tenderness. Extremities are intact. No cyanosis clubbing or edema. Skin is without rash or lesion. Neurologic examination is difficult to evaluate because of patient's currently sedated and paralyzed. - Labs CBC & Chem 7: 09/13/20 04:55 09/14/20 05:12 Labs: Abnormal Lab Results - Last 24 Hours (Table) 09/13/20 09/13/20 09/13/20 Range/Units 05:50 06:04 11:59 ABG pH 7.54 H (7.35-7.45) ABG pCO2 33 L (35-45) mmHg ABG HCO3 29 H (21-25) mmol/L ABG Total CO2 30 H (19-24) mmol/L Chloride (98-107) mmol/L BUN (7-17) mg/dL Glucose (74-99) mg/dL POC Glucose (mg/dL) 187 H 181 H (75-99) mg/dL Calcium (8.4-10.2) mg/dL 09/13/20 09/13/20 09/14/20 Range/Units 17:12 23:30 05:12 ABG pH (7.35-7.45) ABG pCO2 (35-45) mmHg ABG HCO3 (21-25) mmol/L ABG Total CO2 (19-24) mmol/L Chloride 112 H (98-107) mmol/L BUN 29 H (7-17) mg/dL Glucose 151 H (74-99) mg/dL POC Glucose (mg/dL) 127 H 156 H (75-99) mg/dL Calcium 7.5 L (8.4-10.2) mg/dL 09/14/20 Range/Units 05:14 ABG pH (7.35-7.45) ABG pCO2 (35-45) mmHg ABG HCO3 (21-25) mmol/L ABG Total CO2 (19-24) mmol/L Chloride (98-107) mmol/L BUN (7-17) mg/dL Glucose (74-99) mg/dL POC Glucose (mg/dL) 152 H (75-99) mg/dL Calcium (8.4-10.2) mg/dL Assessment and Plan Plan: #1. Acute hypoxic respiratory failure related to acute COVID 19 pneumonia, patient was admitted to the hospital on 09/05/2020, transfer to the intensive care unit on 09/07/2020 and intubated on 09/07/2020, will receive a dose of Actemra 1, and, convalescent plasma 1 on 09/07/2020, and the patient is currently sedated with a combination of propofol and fentanyl and the patient is also paralyzed. Chest x-ray and blood gases were noted. The patient is on Decadron. Note that on today's evaluation, the patient is stable chest x-ray findings. The patient is in a positive fluid balance over the past 48 hours and the patient is showing edema in all 4 extremities. The patient is on IV Solu- Medrol. The patient is taken off paralytics over the past 24 hours. Blood gases are still pending. Inflammatory markers are still pending. D-dimer was elevated and the patient is on Lovenox 60 mg every 12 hours. #2. Increased d-dimer related to the above with no CT evidence of pulmonary embolism, currently on Lovenox 60 mg subcu every 12 hours #3. Increased inflammatory markers #4. Hypertension, requiring clevidipine drip in addition to a combination of Norvasc, lisinopril and metoprolol for blood pressure control #5. Hypothyroidism, currently on thyroid hormone replacement #6. Never smoker #7. IBS #8. Raynaud's Plan: Continue sedation with combination of propofol and fentanyl Paralytic has been discontinued Wean off to have a proximal drip and discontinue the patient is on various ant ihypertensive medication which will be continued Give the patient Lasix 40 mg IV every 24 hours Continue ventilator support Continue IV Solu Medrol 40 mg every every 8 hours Continue Lovenox 60 mg subcu every 12 hours Monitor inflammatory markers Enteral feeding for nutritional support Wean off clevidipine drip and discontinue and utilizing a combination of Norvasc and lisinopril and metoprolol for blood pressure control Humalog sliding scale coverage We'll continue to follow, not a whole lot of improvement, unable to do any ventilator changes awaiting blood gases for now. Critically care evaluation more than 30 minutes Time with Patient: Greater than 30
[2020-09-14 06:26] LABS: ABG Base Excess 4.3 mmol/L; ABG HCO3 27 mmol/L (21-25); ABG Oxygen Saturation 96.3 % (94-97); ABG PCO2 32 mmHg (35-45); ABG PH 7.53 (7.35-7.45); ABG PO2 80 mmHg (83-108); ABG TCO2 28 mmol/L (19-24); Allen Test Performed? Yes
[2020-09-14 06:29] LABS: HCT 27.1 % (34.0-46.0); HGB 9.6 gm/dL (11.4-16.0); MCH 30.2 pg (25.0-35.0); MCHC 35.6 g/dL (31.0-37.0); Platelet Count 344 k/uL (150-450); RBC 3.19 m/uL (3.80-5.40); RDW 14.1 % (11.5-15.5); WBC 12.9 k/uL (3.8-10.6)
[2020-09-14] MEDS: CISATRACURIUM 200 MG in SODIUM CHLORIDE 0.9% 180 ML IV SCH (08:03)
[2020-09-14] MEDS: ENOXAPARIN 60 MG/0.6 ML SYRINGE SQ SCH ×2 (08:10→21:05)
[2020-09-14] MEDS: CHLORHEXIDINE GLUCONATE 15 ML CUP MUCOUS MEM SCH ×2 (08:10→21:05)
[2020-09-14] MEDS: amLODIPine 5 MG TAB PO SCH ×2 (08:10→21:05)
[2020-09-14] MEDS: ZINC SULFATE 220 MG CAP PO SCH (08:10)
[2020-09-14] MEDS: ASCORBIC ACID 500 MG TAB PO SCH (08:11)
[2020-09-14] MEDS: CITALOPRAM HYDROBROMIDE 20 MG TAB PO SCH (08:11)
[2020-09-14] MEDS: METOPROLOL TARTRATE 50 MG TAB PO SCH (08:11)
[2020-09-14] MEDS: PANTOPRAZOLE 40 MG/10 ML VIAL IVP SCH ×2 (08:11→21:05)
[2020-09-14] MEDS: lisinopriL 20 MG TAB PO SCH ×2 (08:11→21:05)
[2020-09-14] MEDS ORDERED: propofoL 100 ML IV ONE (08:17)
[2020-09-14] MEDS: fentaNYL (PF) 2,500 MCG in SODIUM CHLORIDE 0.9% 200 ML IV SCH (08:32)
[2020-09-14] MEDS: SODIUM CHLORIDE 0.9% 1,000 ML IV SCH ×2 (08:33→21:06)
[2020-09-14] MEDS ORDERED: FUROSEMIDE 10 MG/ML 4 ML VIAL IV SCH (09:00)
[2020-09-14] MEDS: ALBUTEROL HFA INHALER INHALATION SCH ×4 (09:32→19:43)
[2020-09-14 10:54] LABS: Band Neutrophils % 3 %; Lymphocytes # (M) 0.65 k/uL (1.0-4.8); Metamyelocytes # (M) 0.26 k/uL (0); Metamyelocytes % 2 %; Monocytes # (M) 0.77 k/uL (0-1.0); Myelocytes # (M) 0.39 k/uL (0); Myelocytes % 3 %; Neutrophils % (M) 83 %; Nucleated Red Blood Cells 0 /100 WBC (0-0); Total Cells Counted 200
--- NOTE | 2020-09-14 10:55 | XR ---
EXAMINATION TYPE: XR chest 1V DATE OF EXAM: 09/14/2020 CLINICAL HISTORY: Difficulty breathing progress study. TECHNIQUE: Single AP portable semiupright view of the chest is obtained. COMPARISON: Chest x-ray from one day earlier and older studies. CTA chest September 05, 2020. FINDINGS: Stable endotracheal and orogastric tubes. Stable left subclavian central venous catheter. Cardiac silhouette size is stable and within normal limits. Persistent bilateral increased opacities greatest in the lower lungs. Osseous structures are intact. IMPRESSION: Bilateral multifocal opacities redemonstrated consistent with covid-19 infection, no sign ificant change from most recent x-ray.
[2020-09-14 11:54] LABS: Glucose,Whole Blood 163 mg/dL (75-99)
[2020-09-14] MEDS: CHOLECALCIFEROL 25 MCG (1000 IU) TABLET PO SCH (12:26)
[2020-09-14 13:03] LABS: ABG Base Excess 4.9 mmol/L; ABG HCO3 28 mmol/L (21-25); ABG Oxygen Saturation 96.8 % (94-97); ABG PCO2 38 mmHg (35-45); ABG PH 7.48 (7.35-7.45); ABG PO2 90 mmHg (83-108); ABG TCO2 30 mmol/L (19-24); Allen Test Performed? Yes
[2020-09-14 18:11] LABS: Glucose,Whole Blood 140 mg/dL (75-99)
[2020-09-14] MEDS: MULTIVITAMINS, THERA 1 EACH TAB PO SCH (21:05)
[2020-09-14] MEDS: ATORVASTATIN 20 MG TAB PO SCH (21:05)
[2020-09-14] MEDS: ASPIRIN 81 MG PO SCH (21:05)
[2020-09-14] MEDS: MONTELUKAST 10 MG TAB PO SCH (21:05)
[2020-09-14] MEDS: LORATADINE 10 MG TAB PO SCH (21:05)
[2020-09-14] MEDS: MELATONIN 5 MG TABLET PO SCH (21:05)
--- NOTE | 2020-09-14 21:43 | P.PN ---
Progress Note - Text Progress Note Date: 09/14/20 Chief Complaint: Difficulty breathing/COVID positive History of presenting complaint 65-year-old female , whose PCP is Dr. Haq, states she's been exposed to Covid 19 from both her son and daughter who states she's had symptoms similar today for last 8 days which include nausea vomiting recently diarrhea rhinorrhea no overt shortness of breath she does have a cough also a fever and generalized weakness. decreased oral intake. She is here just because she is profoundly weak at this time. Not able to keep fluids down. Admitted with COVID 19 pneumonia. Acute hypoxic respiratory failure. Patient was given convalescent plasma. Dexamethasone, September 07: into respiratory distress. intubated. Given ACTEMRA. Convalescent plasma. , Today: ICU: Tubes include propofol, clubbing pricks, fentanyl, Nimbex has been off. 2 feeding at 10 mL an hour. Ventilator: FiO2 59 PEEP of 15. Review of systems: Patient intubated Active Medications Acetaminophen (Acetaminophen Tab 325 Mg Tab) 650 mg PO Q6HR PRN PRN Reason: Mild Pain or Fever > 100.5 Last Admin: 09/06/20 12:25 Dose: 650 mg Documented by: Albuterol Sulfate (Albuterol Hfa Inhaler) 2 puff INHALATION RT-QID PRN PRN Reason: Shortness Of Breath Or Wheezing Albuterol Sulfate (Albuterol Hfa Inhaler) 4 puff INHALATION RT-QID [facility] Last Admin: 09/14/20 19:43 Dose: 4 puff Documented by: Amlodipine Besylate (Amlodipine 5 Mg Tab) 5 mg PO BID [facility] Last Admin: 09/14/20 21:05 Dose: 5 mg Documented by: Artificial Tears (Artificial Tears-Hypromellose Drops 15 Ml Btl) 1 drops BOTH EYES Q4H [facility] Last Admin: 09/14/20 20:58 Dose: 1 drops Documented by: Ascorbic Acid (Ascorbic Acid 500 Mg Tab) 1,000 mg PO DAILY [facility] Last Admin: 09/14/20 08:11 Dose: 1,000 mg Documented by: Aspirin (Aspirin 81 Mg) 81 mg PO [facility] Last Admin: 09/14/20 21:05 Dose: 81 mg Documented by: Atorvastatin Calcium (Atorvastatin 20 Mg Tab) 20 mg PO [facility] Last Admin: 09/14/20 21:05 Dose: 20 mg Documented by: Chlorhexidine Gluconate (Chlorhexidine Gluconate 15 Ml Cup) 15 ml MUCOUS MEM BID [facility] Last Admin: 09/14/20 21:05 Dose: 15 ml Documented by: Cholecalciferol (Cholecalciferol 25 Mcg (1000 Iu) Tablet) 125 mcg PO DAILY [facility] Last Admin: 09/14/20 12:26 Dose: 125 mcg Documented by: Citalopram Hydrobromide (Citalopram Hydrobromide 20 Mg Tab) 40 mg PO DAILY [facility] Last Admin: 09/14/20 08:11 Dose: 40 mg Documented by: Enoxaparin Sodium (Enoxaparin 60 Mg/0.6 Ml Syringe) 60 mg SQ BID [facility] Last Admin: 09/14/20 21:05 Dose: 60 mg Documented by: Furosemide (Furosemide 10 Mg/Ml 4 Ml Vial) 40 mg IV DAILY [facility] Last Admin: 09/14/20 06:32 Dose: 40 mg Documented by: Propofol 1,000 mg/ IV Solution 100 mls @ 0 mls/hr IV .Q0M [facility]; Protocol Last Admin: 09/14/20 20:59 Dose: 60 mcg/kg/min, 25.056 mls/hr Documented by: Cisatracurium Besylate 200 mg/ (Sodium Chloride) 200 mls @ 3.81 mls/hr IV .Q24H [facility]; Protocol Last Admin: 09/14/20 08:03 Dose: Not Given Documented by: Sodium Chloride (Saline 0.9%) 1,000 mls @ 20 mls/hr IV .Q24H [facility] Last Admin: 09/14/20 21:06 Dose: 20 mls/hr Documented by: Clevidipine 25 mg/ IV Solution 50 mls @ 2 mls/hr IV .Q24H [facility]; Protocol Last Admin: 09/14/20 16:52 Dose: 2 mg/hr, 4 mls/hr Documented by: Fentanyl Citrate 2,500 mcg/ (Sodium Chloride) 250 mls @ 0 mls/hr IV .Q0M [facility]; Protocol Last Admin: 09/14/20 08:32 Dose: 3 mcg/kg/hr, 20.88 mls/hr Documented by: Insulin Aspart (Insulin Aspart (Novolog) 100 Unit/Ml Vial) 0 unit SQ Q6H [facility]; Protocol Last Admin: 09/14/20 18:19 Dose: 1 unit Documented by: Lactulose (Lactulose 20 Gm/30 Ml Cup) 30 gm PO BID PRN PRN Reason: Constipation Levothyroxine Sodium (Levothyroxine 75 Mcg Tab) 75 mcg PO [id number] [facility] Last Admin: 09/14/20 05:52 Dose: 75 mcg Documented by: Levothyroxine Sodium (Levothyroxine 75 Mcg Tab) 37.5 mcg PO SA [facility] Last Admin: 09/12/20 21:22 Dose: 37.5 mcg Documented by: Lisinopril (Lisinopril 20 Mg Tab) 20 mg PO BID [facility] Last Admin: 09/14/20 21:05 Dose: 20 mg Documented by: Loratadine (Loratadine 10 Mg Tab) 10 mg PO [facility] Last Admin: 09/14/20 21:05 Dose: 10 mg Documented by: Melatonin (Melatonin 5 Mg Tablet) 5 mg PO [facility] Last Admin: 09/14/20 21:05 Dose: 5 mg Documented by: Methylprednisolone Sodium Succinate (Methylprednisolone Sod Succi 40 Mg/Ml 1 Ml Vial) 40 mg IV Q8HR [facility] Last Admin: 09/14/20 16:52 Dose: 40 mg Documented by: Metoprolol Tartrate (Metoprolol Tartrate 50 Mg Tab) 100 mg PO DAILY [facility] Last Admin: 09/14/20 08:11 Dose: Not Given Documented by: Miscellaneous Information (Potassium Replacement Protocol 1 Each Misc) 1 each MISCELLANE DAILY PRN; Protocol PRN Reason: Per Protocol Miscellaneous Information (Potassium Replacement Protocol 1 Each Misc) 1 each MISCELLANE DAILY PRN; Protocol PRN Reason: Per Protocol Montelukast Sodium (Montelukast 10 Mg Tab) 10 mg PO [facility] Last Admin: 09/14/20 21:05 Dose: 10 mg Documented by: Multivitamins (Multivitamins, Thera 1 Each Tab) 1 each PO [facility] Last Admin: 09/14/20 21:05 Dose: 1 each Documented by: Naloxone HCl (Naloxone 0.4 Mg/Ml 1 Ml Vial) 0.2 mg IV Q2M PRN PRN Reason: Opioid Reversal Pantoprazole Sodium (Pantoprazole 40 Mg/10 Ml Vial) 40 mg IVP BID [facility] Last Admin: 09/14/20 21:05 Dose: 40 mg Documented by: Zinc Sulfate (Zinc Sulfate 220 Mg Cap) 220 mg PO DAILY [facility] Last Admin: 09/14/20 08:10 Dose: 220 mg Documented by: On examination: VITAL SIGNS: 98.9, 49, 28, 1 25 x 56, 95% on the ventilator GENERAL APPEARANCE: laying in bed, intubated . ETT, OGtube-2 feeding HEENT: Endotracheal tube PSYCHIATRY: Unable to assess Rest of exam as per pulmonary nursing INVESTIGATIONS, reviewed in the clinical context: September 14: WBC 12.9 hemoglobin 9.6 potassium 4 creatinine 0.62 September 08: WBC 5.4 hemoglobin 8.8 platelets 237 d-dimer 1.67. Potassium 3.3 creatinine 0.53 CRP 216 September 07: WBC 5.7 hemoglobin 9.2 platelets 250 potassium 3.8 creatinine 0.73 troponin I 0.084 albumin 2.6 Chest x-ray film personally reviewed by me-[September 07: Bilateral infiltrates, confluent more so in the lower zones and metolazone EKG tracing personally reviewed by me-normal sinus rhythm. Nonspecific changes CT [place] chest: Extensive bilateral infiltrates with adenopathy. No PE Blood cultures: Negative Admission labs: Troponin I less than 0.012 Assessment and plan Acute hypoxic respiratory-slow to respond - intubated on September 07. On the ventilator-50 %. PEEP 15 Interstitial pneumonia secondary to COVID-19: Not improving -Receiving Lovenox, dexamethasone, vitamin C vitamin D, Pepcid, zinc. Received ACTEMRA and convalescent plasma Hypothyroidism; - levothyroxine 75 MCG daily Essential Hypertension; better controlled Increase lisinopril to 20 mg twice a day, amlodipine increased to 5 mg twice a day Hyperlipidemia; -continue with home statin therapy Asthma; not in exacerbation; -continue singular 10 mg daily home inhaler therapy GERD: - Continue with PPI Irritable bowel syndrome: -Follow clinically Raynauds phenomenon. - Follow clinically Diabetes mellitus type 2; uncontrolled with hyperglycemia -hold metformin. Follow Accu-Cheks. Normocytic anemia. -Follow H&H Acute hypoalbuminemia: -Acute phase reactant Obesity BMI 31.4 -To follow outpatient for weight loss measures CODE STATUS; full code Continue current medication treatment plan. 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 Prognosis guarded
[2020-09-14 23:29] LABS: Glucose,Whole Blood 139 mg/dL (75-99)
[2020-09-15] MEDS: fentaNYL (PF) 2,500 MCG in SODIUM CHLORIDE 0.9% 200 ML IV SCH ×2 (01:22→18:03)
[2020-09-15] MEDS: CLEVIDIPINE BUTYRATE 25 MG in EMPTY BAG 1 BAG IV SCH ×7 (01:29→23:53)
[2020-09-15 04:09] LABS: Basophils % (A) 0 %; Eosinophils % (A) 0 %; HCT 28.4 % (34.0-46.0); HGB 9.8 gm/dL (11.4-16.0); Lymphocytes # (A) 0.9 k/uL (1.0-4.8); Lymphocytes % (A) 7 %; MCH 29.3 pg (25.0-35.0); MCHC 34.3 g/dL (31.0-37.0); MCV 85.3 fL (80.0-100.0); Mean Platelet Volume 8.3; Monocytes # (A) 0.6 k/uL (0-1.0); Monocytes % (A) 5 %; Neutrophils % (A) 87 %; Platelet Count 278 k/uL (150-450); RBC 3.33 m/uL (3.80-5.40); RDW 14.3 % (11.5-15.5); WBC 12.7 k/uL (3.8-10.6)
[2020-09-15] MEDS: ARTIFICIAL TEARS-HYPROMELLOSE DROPS 15 ML BTL BOTH EYES SCH ×6 (04:20→23:54)
[2020-09-15 04:25] LABS: ALT 60 U/L (4-34); AST 42 U/L (14-36); African American GFR (CKD) >90 (>60 ml/min/1.73 sqM); Albumin 2.3 g/dL (3.5-5.0); Alkaline Phosphatase 65 U/L (38-126); Anion Gap 0 mmol/L; Blood Urea Nitrogen 27 mg/dL (7-17); Calcium 7.5 mg/dL (8.4-10.2); Carbon Dioxide 28 mmol/L (22-30); Chloride 109 mmol/L (98-107); Glucose 158 mg/dL (74-99); Non-African American GFR(CKD) >90 (>60 ml/min/1.73 sqM); Potassium 4.1 mmol/L (3.5-5.1); Sodium 137 mmol/L (137-145); Total Bilirubin 0.6 mg/dL (0.2-1.3); Total Protein 4.3 g/dL (6.3-8.2)
[2020-09-15 05:17] LABS: ABG HCO3 28 mmol/L (21-25); ABG Oxygen Saturation 96.8 % (94-97); ABG PCO2 38 mmHg (35-45); ABG PH 7.49 (7.35-7.45); ABG PO2 90 mmHg (83-108); ABG TCO2 30 mmol/L (19-24)
[2020-09-15] MEDS: CISATRACURIUM 200 MG in SODIUM CHLORIDE 0.9% 180 ML IV SCH (05:42)
[2020-09-15] MEDS: LEVOTHYROXINE 75 MCG TAB PO SCH (05:43)
--- NOTE | 2020-09-15 06:10 | P.PN ---
Subjective Progress Note Date: 09/15/20 On 09/14/2020 and seeing this patient for a follow-up as the patient is sara landaverde intubated on a mechanical ventilated with hypoxic respiratory failure due to COVID 19 related pneumonia and respiratory failure. The patient was intubated on 09/07/2020 and the patient has been treated with a convalescent plasma and received a dose of Actemra and the patient is currently on steroids. On today's evaluation, the patient remains sedated and the patient is currently on a combination of propofol 60 mics /kg per minute and the patient on fentanyl at 3 mcg/kg/h. The patient was also paralyzed and the paramedics was discontinued yesterday at around 10:00. Since then the patient has been off paralytics.. The patient remains on a mechanical ventilator on assist control mode at the rate of 28 with a tidal volume of 400 and FiO2 of 50% with a PEEP of 15. The patient blood gases is still pending from this morning.Chest x-ray showing diffuse bilateral pulmonary infiltrate, and the infiltrates are worse in the right lower lobe compared to the left although there is bilateral pulmonary infiltrates. The patient's subclavian triple-lumen catheter on the left and the patient has an ET tube that that being around 2 cm above the jason. and the patient remains on Lovenox 60 mg every 24 hours. The patient is receiving NovoLog insulin for size. Coverage blood sugar control. The patient is also utilizing clevidipine drip for blood pressure control at 2 mg an hour she is on Norvasc 5 mg by mouth twice a day. The patient is also on metoprolol 100 mg by mouth twice a day. The patient is on Zestril 20 mg by mouth twice a day for blood pressure control. The patient is on levothyroxine 75 g and 37.5 g orally on a daily basis. The patient is receiving enteral feeding for nutritional support. The most recent CRP level is at 9, the most recent LDH level was 1750. D-dimer was elevated at 8.2. Hypertension, hypothyroidism, IBS, hiatal hernia, and the patient initially presented to us on 09/05/2020 with gastrointestinal symptoms and shortness of breath. the morning labs show normal electrolytes, no other abnormalities are noted. The patient remains on IV Solu- Medrol 40 mg every 12 hours. Lovenox is a 60 mg every 12 hours and the patient d-dimer was 8.21. The peak airway pressures around 41. Static pressure is 33- 34. On 09/15/2020, the patient remains intubated on mechanical ventilator. The patient was intubated for Covid 19 related pneumonia. The patient was intubated on 09/07/2020. The patient currently is sedated with propofol which is running at 60 mcg/kg per minute and the fentanyl is also running at 3 mcg/kg/h. The patient is off paralytics for now. Meanwhile, the patient remains an assist- control mode of ventilation which is essentially the same as yesterday. The patient is on a tidal volume of 350 with an FiO2 of 50% and a PEEP of 13 and the rate of 28. The peak airway pressures around 37 anesthetic pressures 34. The patient continues to have a very enlarged and swollen tongue which is nonnecrotic at this point in time. The blood gases from this morning shows a pH of 7.49 with a pCO2 of 38 and a pO2 of 90. Chest x-ray still pending for now. The chest x-ray from yesterday was still showing diffuse bilateral pulmonary infiltrates. Meanwhile, the patient is still on clevidipine drip for blood pressure control. Her blood pressure remains quite elevated. She is running at 4 mg an hour and the patient is also on a combination of Norvasc a total of 10 mg by mouth daily, metoprolol 100 mg by mouth twice a day, Zestril 20 mg by mouth twice a day. She is still receiving Solu-Medrol 40 mg IV every 8 hours. Anticoagulation is with Lovenox 60 mg by subcu twice a day. On her blood work, she has a normal renal function with a BUN of 27 and creatinine of 0.5. Electrolytes are normal. White count of 12.7 with a hemoglobin of 9.8. The liver function tests are essentially within normal limits. Hemodynamically stable. No pressors for now. She is afebrile. Her net fluid balance is been +1.4 L over the past 24 hours. The patient is receiving enteral feeding for nutritional support. She is receiving vital high protein at the rate of 10 mL an hour. She is also receiving NovoLog insulin for sliding scale coverage. Objective - Vital Signs Vital signs: Vital Signs Temp 98.7 F 09/15/20 00:00 Pulse 76 09/15/20 05:30 Resp 28 H 09/15/20 05:30 BP 144/69 09/13/20 12:00 Pulse Ox 95 09/15/20 05:30 Intake & Output 09/14/20 09/14/20 09/15/20 06:59 18:59 06:59 Intake Total 1497.926 735.367 888.569 Output Total 940 2670 950 Balance 557.926 -1934.633 -61.431 Weight 84.2 kg 84.2 kg 84.7 kg Intake: IV 900 275 230 Sodium Chloride 0.9% 1, 900 260 200 000 ml @ 20 mls/hr IV . Q24H [facility] Rx#:[id number] pressure bag 15 30 Intake, IV Titration 417.926 220.367 408.569 Amount Clevidipine Butyrate 25 19.067 20.367 57.733 mg In Empty Bag 1 bag @ 1 MG/HR 2 mls/hr IV .Q24H [facility] Rx#:[id number] fentaNYL (PF) 2,500 mcg 250 250 In Sodium Chloride 0.9% 200 ml @ Per Protocol IV .Q0M [facility] Rx#:[id number] propofoL 1,000 mg In 148.859 200 100.836 Empty Bag 1 bag @ Titrate IV .Q0M [facility] Rx#: [id number] Tube Feeding 120 150 100 Other 60 90 150 Output: Urine 940 2670 950 Other: Voiding Method Indwelling Catheter Indwelling Catheter Indwelling Catheter ABP, PAP, CO, CI - Last Documented Arterial Blood Pressure 151/60 - Exam No acute distress. The patient is sedated and intubated and on the mechanical ventilator. She is also off paralytics, the tongue is swollen and protruded. The patient is off paralytics and the patient is quite segments of the mechanical ventilator. HEENT examination is grossly unremarkable. Orally placed endotracheal tube is noted. Neck supple. Full range of motion. No adenopathy thyromegaly or neck vein distention. Cardiovascular examination reveals regular rhythm rate. S1-S2 normal. No S3 or S4. No discernible murmur noted. Heart rate 75 bpm. Lungs reveal bilateral coarse rhonchi, and by basilar crackles. Breath sounds equal bilaterally. There are no wheezes. Abdomen soft bowel sounds are heard. No masses or tenderness. Extremities are intact. No cyanosis clubbing or edema. Skin is without rash or lesion. Neurologic examination is difficult to evaluate because of patient's currently sedated and the patient is currently off paralytics. - Labs CBC & Chem 7: 09/15/20 03:45 09/15/20 03:45 Labs: Abnormal Lab Results - Last 24 Hours (Table) 09/14/20 09/14/20 09/14/20 Range/Units 05:12 06:20 11:51 WBC 12.9 H (3.8-10.6) k/uL RBC 3.19 L (3.80-5.40) m/uL Hgb 9.6 L (11.4-16.0) gm/dL Hct 27.1 L (34.0-46.0) % Neutrophils # (1.3-7.7) k/uL Neutrophils # (Manual) 11.00 H (1.3-7.7) k/uL Lymphocytes # (1.0-4.8) k/uL Lymphocytes # (Manual) 0.65 L (1.0-4.8) k/uL Metamyelocytes # (Man) 0.26 H (0) k/uL Myelocytes # (Manual) 0.39 H (0) k/uL ABG pH 7.53 H (7.35-7.45) ABG pCO2 32 L (35-45) mmHg ABG pO2 80 L (83-108) mmHg ABG HCO3 27 H (21-25) mmol/L ABG Total CO2 28 H (19-24) mmol/L Chloride (98-107) mmol/L BUN (7-17) mg/dL Creatinine (0.52-1.04) mg/dL Glucose (74-99) mg/dL POC Glucose (mg/dL) 163 H (75-99) mg/dL Calcium (8.4-10.2) mg/dL AST (14-36) U/L ALT (4-34) U/L Total Protein (6.3-8.2) g/dL Albumin (3.5-5.0) g/dL 09/14/20 09/14/20 09/14/20 Range/Units 12:54 18:08 23:28 WBC (3.8-10.6) k/uL RBC (3.80-5.40) m/uL Hgb (11.4-16.0) gm/dL Hct (34.0-46.0) % Neutrophils # (1.3-7.7) k/uL Neutrophils # (Manual) (1.3-7.7) k/uL Lymphocytes # (1.0-4.8) k/uL Lymphocytes # (Manual) (1.0-4.8) k/uL Metamyelocytes # (Man) (0) k/uL Myelocytes # (Manual) (0) k/uL ABG pH 7.48 H (7.35-7.45) ABG pCO2 (35-45) mmHg ABG pO2 (83-108) mmHg ABG HCO3 28 H (21-25) mmol/L ABG Total CO2 30 H (19-24) mmol/L Chloride (98-107) mmol/L BUN (7-17) mg/dL Creatinine (0.52-1.04) mg/dL Glucose (74-99) mg/dL POC Glucose (mg/dL) 140 H 139 H (75-99) mg/dL Calcium (8.4-10.2) mg/dL AST (14-36) U/L ALT (4-34) U/L Total Protein (6.3-8.2) g/dL Albumin (3.5-5.0) g/dL 09/15/20 09/15/20 09/15/20 Range/Units 03:45 03:45 05:08 WBC 12.7 H (3.8-10.6) k/uL RBC 3.33 L (3.80-5.40) m/uL Hgb 9.8 L (11.4-16.0) gm/dL Hct 28.4 L (34.0-46.0) % Neutrophils # 11.0 H (1.3-7.7) k/uL Neutrophils # (Manual) (1.3-7.7) k/uL Lymphocytes # 0.9 L (1.0-4.8) k/uL Lymphocytes # (Manual) (1.0-4.8) k/uL Metamyelocytes # (Man) (0) k/uL Myelocytes # (Manual) (0) k/uL ABG pH 7.49 H (7.35-7.45) ABG pCO2 (35-45) mmHg ABG pO2 (83-108) mmHg ABG HCO3 28 H (21-25) mmol/L ABG Total CO2 30 H (19-24) mmol/L Chloride 109 H (98-107) mmol/L BUN 27 H (7-17) mg/dL Creatinine 0.51 L (0.52-1.04) mg/dL Glucose 158 H (74-99) mg/dL POC Glucose (mg/dL) (75-99) mg/dL Calcium 7.5 L (8.4-10.2) mg/dL AST 42 H (14-36) U/L ALT 60 H (4-34) U/L Total Protein 4.3 L (6.3-8.2) g/dL Albumin 2.3 L (3.5-5.0) g/dL Assessment and Plan Plan: #1. Acute hypoxic respiratory failure related to acute COVID 19 pneumonia, patient was admitted to the hospital on 09/05/2020, transfer to the intensive c are unit on 09/07/2020 and intubated on 09/07/2020, will receive a dose of Actemra 1, and, convalescent plasma 1 on 09/07/2020, and the patient is currently sedated with a combination of propofol and fentanyl and the patient is also paralyzed. Chest x-ray and blood gases were noted. The patient is on Decadron. Note that on today's evaluation, the patient is stable chest x-ray findings. The patient remains intubated on a mechanical ventilator. I was able to wean the PEEP off yesterday. I'm also giving her steroids and diuretics to achieve a negative fluid balance. The patient was wide swallow no 4 extremities. Meanwhile, she remains on IV Solu Medrol and chest x-ray from today is to follow on the blood gases showed adequate oxygenation. #2. Increased d-dimer related to the above with no CT evidence of pulmonary embolism, currently on Lovenox 60 mg subcu every 12 hours, the d-dimer from 09/13/2020 was 8.2. This is to be repeated. The rest of the inflammatory markers will be also repeated. #3. Increased inflammatory markers #4. Hypertension, requiring clevidipine drip in addition to a combination of Norvasc, lisinopril and metoprolol for blood pressure control, consider the possibility of angioedema of the tongue from lisinopril. #5. Hypothyroidism, currently on thyroid hormone replacement #6. Never smoker #7. IBS #8. Raynaud's Plan: Continue sedation with combination of propofol and fentanyl Paralytic has been discontinued Increase the Lasix to 40 mg every 12 hours Stop the lisinopril for now and monitor the tongue swelling Continue chiropractor for blood pressure control Drop the PEEP down to 10 and keep the FiO2 at 50% Continue ventilator support Continue IV Solu Medrol 40 mg every every 8 hours Continue Lovenox 60 mg subcu every 12 hours, and recheck a d-dimer that the rest of the inflammatory markers Monitor inflammatory markers Enteral feeding for nutritional support Wean off clevidipine drip and discontinue and utilizing a combination of Norvasc and and metoprolol for blood pressure control, and add hydralazine 100 mg 3 times a day for blood pressure control and discontinue the lisinopril because of tongue swelling. Humalog sliding scale coverage We'll continue to follow, is likely that we are headed towards a PEG tube insertion of tracheostomy tube insertion for prolonged respiratory failure and prolonged need for mechanical ventilation. I'm going to discuss this with the family and is agreeable, we'll consult general surgery for a PEG tube insertion of tracheostomy tube insertion. Critically care evaluation more than 30 minutes Time with Patient: Greater than 30
[2020-09-15 06:48] LABS: Glucose,Whole Blood 149 mg/dL (75-99)
[2020-09-15] MEDS: INSULIN ASPART (NovoLOG) 100 UNIT/ML VIAL SQ SCH ×3 (07:07→17:55)
[2020-09-15 07:48] LABS: D-Dimer 6.75 mg/L FEU (<0.60)
[2020-09-15 07:52] LABS: C Reactive Protein 7.1 mg/L (<10.0)
[2020-09-15] MEDS: CHOLECALCIFEROL 25 MCG (1000 IU) TABLET PO SCH (08:13)
[2020-09-15] MEDS: methylPREDNISolone SOD SUCCI 40 MG/ML 1 ML VIAL IV SCH ×3 (08:14→23:54)
[2020-09-15] MEDS: ASCORBIC ACID 500 MG TAB PO SCH (08:15)
[2020-09-15] MEDS: ZINC SULFATE 220 MG CAP PO SCH (08:15)
[2020-09-15] MEDS: ALBUTEROL HFA INHALER INHALATION SCH ×4 (08:15→21:15)
[2020-09-15] MEDS: hydrALAZINE HCL 50 MG TAB PO SCH ×3 (08:15→20:03)
[2020-09-15] MEDS: METOPROLOL TARTRATE 50 MG TAB PO SCH (08:16)
[2020-09-15] MEDS: amLODIPine 5 MG TAB PO SCH ×2 (08:16→20:03)
[2020-09-15] MEDS: CITALOPRAM HYDROBROMIDE 20 MG TAB PO SCH (08:16)
[2020-09-15] MEDS: FUROSEMIDE 10 MG/ML 4 ML VIAL IV SCH ×2 (08:17→20:03)
[2020-09-15] MEDS: PANTOPRAZOLE 40 MG/10 ML VIAL IVP SCH ×2 (08:17→20:03)
--- NOTE | 2020-09-15 08:50 | XR ---
EXAMINATION TYPE: XR chest 1V portable DATE OF EXAM: 09/15/2020 Comparison: 09/14/2020 Clinical History: 65-year-old female Crackles Findings: ET tube satisfactory. Left subclavian CVC tip at the lower SVC. NG tube courses below the diaphragm. Heart borderline enlarged. Diffuse interstitial opacity and patchy confluent mid and lower lung opaci ties relatively unchanged. Small left effusion difficult to exclude. Impression: Borderline heart size with continued diffuse interstitial opacity and confluent consolidation in the lower lungs, not significantly changed. Possible small left effusion.
[2020-09-15] MEDS: ENOXAPARIN 60 MG/0.6 ML SYRINGE SQ SCH ×2 (10:31→20:04)
[2020-09-15] MEDS: CHLORHEXIDINE GLUCONATE 15 ML CUP MUCOUS MEM SCH ×2 (10:31→20:03)
[2020-09-15 11:58] LABS: Glucose,Whole Blood 201 mg/dL (75-99)
[2020-09-15 16:51] LABS: Ferritin 116.8 ng/mL (10.0-291.0)
[2020-09-15 17:22] LABS: Glucose,Whole Blood 125 mg/dL (75-99)
[2020-09-15] MEDS: ASPIRIN 81 MG PO SCH (20:02)
[2020-09-15] MEDS: MULTIVITAMINS, THERA 1 EACH TAB PO SCH (20:02)
[2020-09-15] MEDS: ATORVASTATIN 20 MG TAB PO SCH (20:02)
[2020-09-15] MEDS: MELATONIN 5 MG TABLET PO SCH (20:03)
[2020-09-15] MEDS: LORATADINE 10 MG TAB PO SCH (20:03)
[2020-09-15] MEDS: MONTELUKAST 10 MG TAB PO SCH (20:03)
[2020-09-15] MEDS: SODIUM CHLORIDE 0.9% 1,000 ML IV SCH (20:05)
--- NOTE | 2020-09-15 20:22 | P.PN ---
Progress Note - Text Progress Note Date: 09/15/20 Chief Complaint: Difficulty breathing/COVID positive History of presenting complaint 65-year-old female , whose PCP is Dr. Haq, states she's been exposed to Covid 19 from both her son and daughter who states she's had symptoms similar today for last 8 days which include nausea vomiting recently diarrhea rhinorrhea no overt shortness of breath she does have a cough also a fever and generalized weakness. decreased oral intake. She is here just because she is profoundly weak at this time. Not able to keep fluids down. Admitted with COVID 19 pneumonia. Acute hypoxic respiratory failure. Patient was given convalescent plasma. Dexamethasone, September 07: into respiratory distress. intubated. Given ACTEMRA. Convalescent plasma. , Today: ICU: Ventilator: FiO2 50 and a PEEP of 10. Drips included propofol, Cleviprex, fentanyl, 2 feeding at 10 mL an hour Review of systems: Patient intubated Active Medications Acetaminophen (Acetaminophen Tab 325 Mg Tab) 650 mg PO Q6HR PRN PRN Reason: Mild Pain or Fever > 100.5 Last Admin: 09/06/20 12:25 Dose: 650 mg Documented by: Albuterol Sulfate (Albuterol Hfa Inhaler) 2 puff INHALATION RT-QID PRN PRN Reason: Shortness Of Breath Or Wheezing Albuterol Sulfate (Albuterol Hfa Inhaler) 4 puff INHALATION RT-QID [facility] Last Admin: 09/15/20 16:45 Dose: 4 puff Documented by: Amlodipine Besylate (Amlodipine 5 Mg Tab) 5 mg PO BID [facility] Last Admin: 09/15/20 20:03 Dose: 5 mg Documented by: Artificial Tears (Artificial Tears-Hypromellose Drops 15 Ml Btl) 1 drops BOTH EYES Q4H [facility] Last Admin: 09/15/20 20:04 Dose: 1 drops Documented by: Ascorbic Acid (Ascorbic Acid 500 Mg Tab) 1,000 mg PO DAILY [facility] Last Admin: 09/15/20 08:15 Dose: 1,000 mg Documented by: Aspirin (Aspirin 81 Mg) 81 mg PO [facility] Last Admin: 09/15/20 20:02 Dose: 81 mg Documented by: Atorvastatin Calcium (Atorvastatin 20 Mg Tab) 20 mg PO [facility] Last Admin: 09/15/20 20:02 Dose: 20 mg Documented by: Chlorhexidine Gluconate (Chlorhexidine Gluconate 15 Ml Cup) 15 ml MUCOUS MEM BID [facility] Last Admin: 09/15/20 20:03 Dose: 15 ml Documented by: Cholecalciferol (Cholecalciferol 25 Mcg (1000 Iu) Tablet) 125 mcg PO DAILY [facility] Last Admin: 09/15/20 08:13 Dose: 125 mcg Documented by: Citalopram Hydrobromide (Citalopram Hydrobromide 20 Mg Tab) 40 mg PO DAILY [facility] Last Admin: 09/15/20 08:16 Dose: 40 mg Documented by: Enoxaparin Sodium (Enoxaparin 60 Mg/0.6 Ml Syringe) 60 mg SQ BID [facility] Last Admin: 09/15/20 20:04 Dose: 60 mg Documented by: Furosemide (Furosemide 10 Mg/Ml 4 Ml Vial) 40 mg IV Q12HR [facility] Last Admin: 09/15/20 20:03 Dose: 40 mg Documented by: Hydralazine HCl (Hydralazine Hcl 50 Mg Tab) 100 mg PO TID [facility] Last Admin: 09/15/20 20:03 Dose: 100 mg Documented by: Propofol 1,000 mg/ IV Solution 100 mls @ 0 mls/hr IV .Q0M [facility]; Protocol Last Admin: 09/15/20 20:06 Dose: 50 mcg/kg/min, 25.41 mls/hr Documented by: Cisatracurium Besylate 200 mg/ (Sodium Chloride) 200 mls @ 3.81 mls/hr IV .Q24H [facility]; Protocol Last Admin: 09/15/20 05:42 Dose: Not Given Documented by: Sodium Chloride (Saline 0.9%) 1,000 mls @ 20 mls/hr IV .Q24H [facility] Last Admin: 09/15/20 20:05 Dose: 20 mls/hr Documented by: Clevidipine 25 mg/ IV Solution 50 mls @ 2 mls/hr IV .Q24H [facility]; Protocol Last Admin: 09/15/20 16:40 Dose: 6 mg/hr, 12 mls/hr Documented by: Fentanyl Citrate 2,500 mcg/ (Sodium Chloride) 250 mls @ 0 mls/hr IV .Q0M [facility]; Protocol Last Admin: 09/15/20 18:03 Dose: 2.5 mcg/kg/hr, 21.175 mls/hr Documented by: Insulin Aspart (Insulin Aspart (Novolog) 100 Unit/Ml Vial) 0 unit SQ Q6H [facility]; Protocol Last Admin: 09/15/20 17:55 Dose: Not Given Documented by: Lactulose (Lactulose 20 Gm/30 Ml Cup) 30 gm PO BID PRN PRN Reason: Constipation Levothyroxine Sodium (Levothyroxine 75 Mcg Tab) 75 mcg PO [id number] [facility] Last Admin: 09/15/20 05:43 Dose: 75 mcg Documented by: Levothyroxine Sodium (Levothyroxine 75 Mcg Tab) 37.5 mcg PO [facility] Last Admin: 09/12/20 21:22 Dose: 37.5 mcg Documented by: Loratadine (Loratadine 10 Mg Tab) 10 mg PO [facility] Last Admin: 09/15/20 20:03 Dose: 10 mg Documented by: Melatonin (Melatonin 5 Mg Tablet) 5 mg PO [facility] Last Admin: 09/15/20 20:03 Dose: 5 mg Documented by: Methylprednisolone Sodium Succinate (Methylprednisolone Sod Succi 40 Mg/Ml 1 Ml Vial) 40 mg IV Q8HR [facility] Last Admin: 09/15/20 15:18 Dose: 40 mg Documented by: Metoprolol Tartrate (Metoprolol Tartrate 50 Mg Tab) 100 mg PO DAILY [facility] Last Admin: 09/15/20 08:16 Dose: 100 mg Documented by: Miscellaneous Information (Potassium Replacement Protocol 1 Each Misc) 1 each MISCELLANE DAILY PRN; Protocol PRN Reason: Per Protocol Miscellaneous Information (Potassium Replacement Protocol 1 Each Misc) 1 each MISCELLANE DAILY PRN; Protocol PRN Reason: Per Protocol Montelukast Sodium (Montelukast 10 Mg Tab) 10 mg PO [facility] Last Admin: 09/15/20 20:03 Dose: 10 mg Documented by: Multivitamins (Multivitamins, Thera 1 Each Tab) 1 each PO [facility] Last Admin: 09/15/20 20:02 Dose: 1 each Documented by: Naloxone HCl (Naloxone 0.4 Mg/Ml 1 Ml Vial) 0.2 mg IV Q2M PRN PRN Reason: Opioid Reversal Pantoprazole Sodium (Pantoprazole 40 Mg/10 Ml Vial) 40 mg IVP BID [facility] Last Admin: 09/15/20 20:03 Dose: 40 mg Documented by: Zinc Sulfate (Zinc Sulfate 220 Mg Cap) 220 mg PO DAILY [facility] Last Admin: 09/15/20 08:15 Dose: 220 mg Documented by: On examination: VITAL SIGNS: 98.8, 69, 28, 148/69, 95% on the ventilator GENERAL APPEARANCE: laying in bed, intubated . ETT, OGtube-2 feeding HEENT: Endotracheal tube PSYCHIATRY: Unable to assess Rest of exam as per pulmonary nursing INVESTIGATIONS, reviewed in the clinical context: September 15: D-dimer 6.75 CRP 7.1 September 14: WBC 12.9 hemoglobin 9.6 potassium 4 creatinine 0.62 September 08: WBC 5.4 hemoglobin 8.8 platelets 237 d-dimer 1.67. Potassium 3.3 creatinine 0.53 CRP 216 September 07: WBC 5.7 hemoglobin 9.2 platelets 250 potassium 3.8 creatinine 0.73 troponin I 0.084 albumin 2.6 Chest x-ray film personally reviewed by me-[September 07: Bilateral infiltrates, confluent more so in the lower zones and metolazone EKG tracing personally reviewed by me-normal sinus rhythm. Nonspecific changes CT [facility] chest: Extensive bilateral infiltrates with adenopathy. No PE Blood cultures: Negative Admission labs: Troponin I less than 0.012 Assessment and plan Acute hypoxic respiratory-slow to respond - intubated on September 07. On the ventilator-50 %. PEEP 15 Interstitial pneumonia secondary to COVID-19: Not improving -Receiving Lovenox, dexamethasone, vitamin C vitamin D, Pepcid, zinc. Received ACTEMRA and convalescent plasma Hypothyroidism; - levothyroxine 75 MCG daily Essential Hypertension; better controlled lisinopril to 20 mg twice a day, amlodipine to 5 mg twice a day Hyperlipidemia; -continue with home statin therapy Asthma; not in exacerbation; -continue singular 10 mg daily home inhaler therapy GERD: - Continue with PPI Irritable bowel syndrome: -Follow clinically Raynauds phenomenon. - Follow clinically Diabetes mellitus type 2; uncontrolled with hyperglycemia -hold metformin. Follow Accu-Cheks. Normocytic anemia. -Follow H&H Acute hypoalbuminemia: -Acute phase reactant Obesity BMI 31.4 -To follow outpatient for weight loss measures CODE STATUS; full code Continue current medication treatment plan. In the ICU Prognosis guarded
[2020-09-15 22:37] LABS: LD Isoenzymes 1 15 % (19-38); LD Isoenzymes 2 33 % (30-43); LD Isoenzymes 3 26 % (16-26); LD Isoenzymes 4 13 % (3-12); LD Isoenzymes 5 13 % (3-14); Lactacte Dehydrogenase(LD) ISO 505 U/L (120-250)
[2020-09-15 22:37] LABS: LD Isoenzymes 1 20 % (19-38); LD Isoenzymes 2 34 % (30-43); LD Isoenzymes 3 24 % (16-26); LD Isoenzymes 4 11 % (3-12); LD Isoenzymes 5 11 % (3-14); Lactacte Dehydrogenase(LD) ISO 485 U/L (120-250)
[2020-09-16 00:32] LABS: Glucose,Whole Blood 131 mg/dL (75-99)
[2020-09-16] MEDS: INSULIN ASPART (NovoLOG) 100 UNIT/ML VIAL SQ SCH ×5 (00:41→23:19)
[2020-09-16] MEDS: CLEVIDIPINE BUTYRATE 25 MG in EMPTY BAG 1 BAG IV SCH (03:13)
[2020-09-16] MEDS: ARTIFICIAL TEARS-HYPROMELLOSE DROPS 15 ML BTL BOTH EYES SCH ×6 (03:14→23:19)
[2020-09-16 04:27] LABS: Basophils # (A) 0.1 k/uL (0-0.2); Basophils % (A) 0 %; Eosinophils % (A) 0 %; HCT 30.6 % (34.0-46.0); HGB 10.4 gm/dL (11.4-16.0); Lymphocytes # (A) 0.8 k/uL (1.0-4.8); Lymphocytes % (A) 4 %; MCH 29.4 pg (25.0-35.0); MCHC 33.9 g/dL (31.0-37.0); MCV 86.7 fL (80.0-100.0); Mean Platelet Volume 8.2; Monocytes # (A) 1.1 k/uL (0-1.0); Monocytes % (A) 6 %; Neutrophils # (A) 16.5 k/uL (1.3-7.7); Neutrophils % (A) 89 %; Platelet Count 279 k/uL (150-450); RBC 3.53 m/uL (3.80-5.40); RDW 14.7 % (11.5-15.5); WBC 18.6 k/uL (3.8-10.6)
[2020-09-16 04:38] LABS: ALT 47 U/L (4-34); AST 36 U/L (14-36); African American GFR (CKD) >90 (>60 ml/min/1.73 sqM); Albumin 2.4 g/dL (3.5-5.0); Alkaline Phosphatase 77 U/L (38-126); Anion Gap 2 mmol/L; Blood Urea Nitrogen 23 mg/dL (7-17); C Reactive Protein 6.9 mg/L (<10.0); Calcium 7.6 mg/dL (8.4-10.2); Carbon Dioxide 29 mmol/L (22-30); Chloride 102 mmol/L (98-107); Creatine Kinase 113 U/L (30-135); Glucose 145 mg/dL (74-99); Non-African American GFR(CKD) >90 (>60 ml/min/1.73 sqM); Potassium 3.7 mmol/L (3.5-5.1); Sodium 133 mmol/L (137-145); Total Bilirubin 0.6 mg/dL (0.2-1.3); Total Protein 4.3 g/dL (6.3-8.2)
[2020-09-16 04:50] LABS: D-Dimer 5.62 mg/L FEU (<0.60)
[2020-09-16] MEDS ORDERED: POTASSIUM BICARBONATE/CIT AC 20 MEQ TABLET.EFF NG-TUBE SCH ×3 (05:00→19:00)
[2020-09-16 05:26] LABS: ABG Base Excess 6.3 mmol/L; ABG HCO3 29 mmol/L (21-25); ABG Oxygen Saturation 91.7 % (94-97); ABG PCO2 35 mmHg (35-45); ABG PH 7.53 (7.35-7.45); ABG PO2 62 mmHg (83-108); ABG TCO2 30 mmol/L (19-24); Allen Test Performed? Yes
[2020-09-16] MEDS: CISATRACURIUM 200 MG in SODIUM CHLORIDE 0.9% 180 ML IV SCH (05:30)
[2020-09-16 06:00] LABS: Glucose,Whole Blood 167 mg/dL (75-99)
[2020-09-16] MEDS: LEVOTHYROXINE 75 MCG TAB PO SCH (06:09)
[2020-09-16] MEDS: methylPREDNISolone SOD SUCCI 40 MG/ML 1 ML VIAL IV SCH (07:53)
[2020-09-16] MEDS: CHOLECALCIFEROL 25 MCG (1000 IU) TABLET PO SCH (07:55)
[2020-09-16] MEDS: hydrALAZINE HCL 50 MG TAB PO SCH ×3 (07:55→20:10)
[2020-09-16] MEDS: METOPROLOL TARTRATE 50 MG TAB PO SCH (07:55)
[2020-09-16] MEDS: CITALOPRAM HYDROBROMIDE 20 MG TAB PO SCH (07:56)
[2020-09-16] MEDS: FUROSEMIDE 10 MG/ML 4 ML VIAL IV SCH ×2 (07:56→20:04)
[2020-09-16] MEDS: CHLORHEXIDINE GLUCONATE 15 ML CUP MUCOUS MEM SCH ×2 (07:56→20:04)
[2020-09-16] MEDS: PANTOPRAZOLE 40 MG/10 ML VIAL IVP SCH ×2 (07:56→20:04)
[2020-09-16] MEDS: ASCORBIC ACID 500 MG TAB PO SCH (07:56)
[2020-09-16] MEDS: amLODIPine 5 MG TAB PO SCH ×2 (07:56→20:10)
[2020-09-16] MEDS: ZINC SULFATE 220 MG CAP PO SCH (07:57)
[2020-09-16] MEDS: ENOXAPARIN 60 MG/0.6 ML SYRINGE SQ SCH ×2 (07:57→20:04)
--- NOTE | 2020-09-16 09:25 | P.PN ---
Subjective Progress Note Date: 09/16/20 On 09/14/2020 and seeing this patient for a follow-up as the patient is sara landaverde intubated on a mechanical ventilated with hypoxic respiratory failure due to COVID 19 related pneumonia and respiratory failure. The patient was intubated on 09/07/2020 and the patient has been treated with a convalescent plasma and received a dose of Actemra and the patient is currently on steroids. On today's evaluation, the patient remains sedated and the patient is currently on a combination of propofol 60 mics /kg per minute and the patient on fentanyl at 3 mcg/kg/h. The patient was also paralyzed and the paramedics was discontinued yesterday at around 10:00. Since then the patient has been off paralytics.. The patient remains on a mechanical ventilator on assist control mode at the rate of 28 with a tidal volume of 400 and FiO2 of 50% with a PEEP of 15. The patient blood gases is still pending from this morning.Chest x-ray showing diffuse bilateral pulmonary infiltrate, and the infiltrates are worse in the right lower lobe compared to the left although there is bilateral pulmonary infiltrates. The patient's subclavian triple-lumen catheter on the left and the patient has an ET tube that that being around 2 cm above the jason. and the patient remains on Lovenox 60 mg every 24 hours. The patient is receiving NovoLog insulin for size. Coverage blood sugar control. The patient is also utilizing clevidipine drip for blood pressure control at 2 mg an hour she is on Norvasc 5 mg by mouth twice a day. The patient is also on metoprolol 100 mg by mouth twice a day. The patient is on Zestril 20 mg by mouth twice a day for blood pressure control. The patient is on levothyroxine 75 g and 37.5 g orally on a daily basis. The patient is receiving enteral feeding for nutritional support. The most recent CRP level is at 9, the most recent LDH level was 1750. D-dimer was elevated at 8.2. Hypertension, hypothyroidism, IBS, hiatal hernia, and the patient initially presented to us on 09/05/2020 with gastrointestinal symptoms and shortness of breath. the morning labs show normal electrolytes, no other abnormalities are noted. The patient remains on IV Solu- Medrol 40 mg every 12 hours. Lovenox is a 60 mg every 12 hours and the patient d-dimer was 8.21. The peak airway pressures around 41. Static pressure is 33- 34. On 09/15/2020, the patient remains intubated on mechanical ventilator. The patient was intubated for Covid 19 related pneumonia. The patient was intubated on 09/07/2020. The patient currently is sedated with propofol which is running at 60 mcg/kg per minute and the fentanyl is also running at 3 mcg/kg/h. The patient is off paralytics for now. Meanwhile, the patient remains an assist- control mode of ventilation which is essentially the same as yesterday. The patient is on a tidal volume of 350 with an FiO2 of 50% and a PEEP of 13 and the rate of 28. The peak airway pressures around 37 anesthetic pressures 34. The patient continues to have a very enlarged and swollen tongue which is nonnecrotic at this point in time. The blood gases from this morning shows a pH of 7.49 with a pCO2 of 38 and a pO2 of 90. Chest x-ray still pending for now. The chest x-ray from yesterday was still showing diffuse bilateral pulmonary infiltrates. Meanwhile, the patient is still on clevidipine drip for blood pressure control. Her blood pressure remains quite elevated. She is running at 4 mg an hour and the patient is also on a combination of Norvasc a total of 10 mg by mouth daily, metoprolol 100 mg by mouth twice a day, Zestril 20 mg by mouth twice a day. She is still receiving Solu-Medrol 40 mg IV every 8 hours. Anticoagulation is with Lovenox 60 mg by subcu twice a day. On her blood work, she has a normal renal function with a BUN of 27 and creatinine of 0.5. Electrolytes are normal. White count of 12.7 with a hemoglobin of 9.8. The liver function tests are essentially within normal limits. Hemodynamically stable. No pressors for now. She is afebrile. Her net fluid balance is been +1.4 L over the past 24 hours. The patient is receiving enteral feeding for nutritional support. She is receiving vital high protein at the rate of 10 mL an hour. She is also receiving NovoLog insulin for sliding scale coverage. 09/15/2020, patient is being seen for a follow-up. The patient remains sedated with propofol at 50 mcg/kg per minute and fentanyl is running at 2.5 mcg/kg/h. No paralytics are being utilized. She remains on a mechanical ventilator. She is still with Covid 19 related pneumonia and she is intubated as such on 09/07/2020. She is on assist control mode at the rate of 28 with a tidal volume of 350 and FiO2 of 50% with a PEEP of 8. We were able to wean the PEEP considerably since yesterday. Her current peak airway pressure is 31. The follow-up blood gases from today showing a pH of 7.52 with a pCO2 of 35 and a pO2 of 61. The chest x-ray from today is showing bilateral pulmonary infiltrates and there is improved aeration in the upper lobes. There is still infiltration of the mid and lower lobes bilaterally. ET tube is in good location. The patient continues to have extensive tongue swelling which is obviously protruding outside her mouth. No signs of any necrosis of the tongue. I stopped the DEV inhibitor. She remains on steroids and the patient is receiving Solu Medrol 40 mg every 8 hours. She remains on Lovenox 60 mg of cutaneous every 12 hours. In terms of her blood work, the patient has a hemoglobin of 10.4 with a white cell count of 18.6, and platelet count is at 279, her d-dimer is at 5.62 which is lower compared to yesterday, the rest of the inflammatory markers are showing a CRP level of 6.9 which is also lower compared to yesterday. LFTs are normal. Creatinine 0.5 which is also normal. He was dynamically stable. She is on no pressors. Fluid balance is -3.8 L over the past 24 hours as the patient was being diuresed with Lasix. She received 40 mg of Lasix every 12 hours and this is obviously helped her with her fluid balance. She is gently sedated for now. She is arousable. Moves around. No agitation. She is quite successfully mechanical ventilator. During feeding is with vital high protein at the rate of 10 mL an hour. Objective - Vital Signs Vital signs: Vital Signs Temp 99.9 F H 09/16/20 08:00 Pulse 67 09/16/20 08:00 Resp 28 H 09/16/20 08:00 BP 152/72 09/15/20 19:00 Pulse Ox 94 L 09/16/20 08:00 Intake & Output 09/15/20 09/16/20 09/16/20 18:59 06:59 18:59 Intake Total 1160.944 810.315 65.267 Output Total 3025 2839 80 Balance -1864.056 -2028.685 -14.733 Weight 81.7 kg Intake: IV 276 276 23 Sodium Chloride 0.9% 1, 240 240 20 000 ml @ 20 mls/hr IV . Q24H [facility] Rx#:[id number] pressure bag 36 36 3 Intake, IV Titration 654.944 254.315 32.267 Amount Clevidipine Butyrate 25 120.667 153.467 32.267 mg In Empty Bag 1 bag @ 1 MG/HR 2 mls/hr IV .Q24H [facility] Rx#:[id number] fentaNYL (PF) 2,500 mcg 250 In Sodium Chloride 0.9% 200 ml @ Per Protocol IV .Q0M [facility] Rx#:[id number] propofoL 1,000 mg In 284.277 100.848 Empty Bag 1 bag @ Titrate IV .Q0M [facility] Rx#: [id number] Tube Feeding 140 130 10 Other 90 150 Output: Urine 3025 2839 80 Other: Voiding Method Indwelling Catheter Indwelling Catheter Indwelling Catheter ABP, PAP, CO, CI - Last Documented Arterial Blood Pressure 122/58 - Exam No acute distress. The patient is sedated and intubated and on the mechanical ventilator. She is also off paralytics, the tongue is swollen and protruded. The patient is off paralytics and the patient is quite segments of the mechanical ventilator. The patient is arousable despite being off sedation. I will say she is lightly sedated on a combination of propofol and fentanyl. The bulky protruding tongue remains unchanged. HEENT examination is grossly unremarkable. Orally placed endotracheal tube is noted. Neck supple. Full range of motion. No adenopathy thyromegaly or neck vein distention. Cardiovascular examination reveals regular rhythm rate. S1-S2 normal. No S3 or S4. No discernible murmur noted. Heart rate 75 bpm. Lungs reveal bilateral coarse rhonchi, and by basilar crackles. Breath sounds equal bilaterally. There are no wheezes. Abdomen soft bowel sounds are heard. No masses or tenderness. Extremities are intact. No cyanosis clubbing or edema. Skin is without rash or lesion. Neurologic the patient opens her eyes spontaneously. She is moving all 4 extremities. She gently sedated for now. No focal neurological deficit at this point in time. - Labs CBC & Chem 7: 09/16/20 03:50 09/16/20 03:50 Labs: Abnormal Lab Results - Last 24 Hours (Table) 09/12/20 09/13/20 09/15/20 Range/Units 05:20 04:55 11:56 WBC (3.8-10.6) k/uL RBC (3.80-5.40) m/uL Hgb (11.4-16.0) gm/dL Hct (34.0-46.0) % Neutrophils # (1.3-7.7) k/uL Lymphocytes # (1.0-4.8) k/uL Monocytes # (0-1.0) k/uL Fibrinogen (200-500) mg/dL D-Dimer (<0.60) mg/L FEU ABG pH (7.35-7.45) ABG pO2 (83-108) mmHg ABG HCO3 (21-25) mmol/L ABG Total CO2 (19-24) mmol/L ABG O2 Saturation (94-97) % Sodium (137-145) mmol/L BUN (7-17) mg/dL Glucose (74-99) mg/dL POC Glucose (mg/dL) 201 H (75-99) mg/dL Calcium (8.4-10.2) mg/dL ALT (4-34) U/L LD Isoenzymes 505 H 485 H (120-250) U/L LD 1 15 L (19-38) % LD 4 13 H (3-12) % Total Protein (6.3-8.2) g/dL Albumin (3.5-5.0) g/dL 09/15/20 09/16/20 09/16/20 Range/Units 17:17 00:31 03:50 WBC (3.8-10.6) k/uL RBC (3.80-5.40) m/uL Hgb (11.4-16.0) gm/dL Hct (34.0-46.0) % Neutrophils # (1.3-7.7) k/uL Lymphocytes # (1.0-4.8) k/uL Monocytes # (0-1.0) k/uL Fibrinogen 171 L (200-500) mg/dL D-Dimer 5.62 H (<0.60) mg/L FEU ABG pH (7.35-7.45) ABG pO2 (83-108) mmHg ABG HCO3 (21-25) mmol/L ABG Total CO2 (19-24) mmol/L ABG O2 Saturation (94-97) % Sodium (137-145) mmol/L BUN (7-17) mg/dL Glucose (74-99) mg/dL POC Glucose (mg/dL) 125 H 131 H (75-99) mg/dL Calcium (8.4-10.2) mg/dL ALT (4-34) U/L LD Isoenzymes (120-250) U/L LD 1 (19-38) % LD 4 (3-12) % Total Protein (6.3-8.2) g/dL Albumin (3.5-5.0) g/dL 09/16/20 09/16/20 09/16/20 Range/Units 03:50 03:50 05:20 WBC 18.6 H (3.8-10.6) k/uL RBC 3.53 L (3.80-5.40) m/uL Hgb 10.4 L (11.4-16.0) gm/dL Hct 30.6 L (34.0-46.0) % Neutrophils # 16.5 H (1.3-7.7) k/uL Lymphocytes # 0.8 L (1.0-4.8) k/uL Monocytes # 1.1 H (0-1.0) k/uL Fibrinogen (200-500) mg/dL D-Dimer (<0.60) mg/L FEU ABG pH 7.53 H (7.35-7.45) ABG pO2 62 L (83-108) mmHg ABG HCO3 29 H (21-25) mmol/L ABG Total CO2 30 H (19-24) mmol/L ABG O2 Saturation 91.7 L (94-97) % Sodium 133 L (137-145) mmol/L BUN 23 H (7-17) mg/dL Glucose 145 H (74-99) mg/dL POC Glucose (mg/dL) (75-99) mg/dL Calcium 7.6 L (8.4-10.2) mg/dL ALT 47 H (4-34) U/L LD Isoenzymes (120-250) U/L LD 1 (19-38) % LD 4 (3-12) % Total Protein 4.3 L (6.3-8.2) g/dL Albumin 2.4 L (3.5-5.0) g/dL 09/16/20 Range/Units 05:59 WBC (3.8-10.6) k/uL RBC (3.80-5.40) m/uL Hgb (11.4-16.0) gm/dL Hct (34.0-46.0) % Neutrophils # (1.3-7.7) k/uL Lymphocytes # (1.0-4.8) k/uL Monocytes # (0-1.0) k/uL Fibrinogen (200-500) mg/dL D-Dimer (<0.60) mg/L FEU ABG pH (7.35-7.45) ABG pO2 (83-108) mmHg ABG HCO3 (21-25) mmol/L ABG Total CO2 (19-24) mmol/L ABG O2 Saturation (94-97) % Sodium (137-145) mmol/L BUN (7-17) mg/dL Glucose (74-99) mg/dL POC Glucose (mg/dL) 167 H (75-99) mg/dL Calcium (8.4-10.2) mg/dL ALT (4-34) U/L LD Isoenzymes (120-250) U/L LD 1 (19-38) % LD 4 (3-12) % Total Protein (6.3-8.2) g/dL Albumin (3.5-5.0) g/dL Assessment and Plan Plan: #1. Acute hypoxic respiratory failure related to acute COVID 19 pneumonia, patient was admitted to the hospital on 09/05/2020, transfer to the intensive care unit on 09/07/2020 and intubated on 09/07/2020, will receive a dose of Actemra 1, and, convalescent plasma 1 on 09/07/2020, and the patient is currently sedated with a combination of propofol and fentanyl.. Chest x-ray and blood gases were noted. The patient is on Decadron. The patient is arousable. Chest x-ray was noted. Blood gases was noted. There is some limited improvement and x-ray findings. Oxygenation is also improved and the patient is currently on a PEEP of 8 with an FiO2 of 50%. She continues to have a bulky protruded tongue. ET tube is in a good location of the chest x-ray. She is in a negative fluid balance on IV Lasix. #2. Increased d-dimer related to the above with no CT evidence of pulmonary embolism, currently on Lovenox 60 mg subcu every 12 hours, the d-dimer from 09/13/2020 was 5.6. This is to be repeated. The rest of the inflammatory markers will be also repeated. #3. Increased inflammatory markers #4. Hypertension, requiring clevidipine drip in addition to a combination of Norvasc, lisinopril and metoprolol for blood pressure control, consider the possibility of angioedema of the tongue from lisinopril. The clevidipine drip is running at 2 mg an hour. #5. Hypothyroidism, currently on thyroid hormone replacement #6. Never smoker #7. IBS #8. Raynaud's Plan: Continue sedation with combination of propofol and fentanyl Lasix to 40 mg every 12 hours for another 24 hours Stop the lisinopril on hold and monitor the tongue swelling Continue clevipine for blood pressure control Continue ventilator support Stop the patient IV Solu-Medrol. The patient on Decadron 6 mg IV every 12 hours. I'm hoping this would also help with her tongue swelling. Continue Lovenox 60 mg subcu every 12 hours, and recheck a d-dimer that the rest of the inflammatory markers Monitor inflammatory markers Enteral feeding for nutritional support Wean off clevidipine drip and discontinue and utilizing a combination of Norvasc and and metoprolol for blood pressure control, and add hydralazine 100 mg 3 times a day for blood pressure control and discontinue the lisinopril because of tongue swelling. Humalog sliding scale coverage I think ultimately, the patient may benefit from a tracheostomy tube insertion. I think removing the ET tube will at least give the tongue some relief and I do not foresee the patient extubating properly with a very large bulky tongue. As such, I'm recommending a tracheostomy tube insertion which was secured airway for this patient and may facilitate her weaning process. The family will be aware I am going to contact the patient family accordingly. Critically care evaluation more than 30 minutes Time with Patient: Greater than 30
--- NOTE | 2020-09-16 11:15 | P.GSCN ---
History of Present Illness Consult date: 09/16/20 Reason for Consult: Respiratory failure History of present illness: 65-year-old female admitted to the hospital with complaints of shortness of breath. Patient had some other symptoms including nausea vomiting and diarrhea. Patient was exposed to Covid. She was found to be positive. She was placed on the ventilator on 09/07. Has been prone at least on one occasion. Patient having some improvement in her pulmonary status. [employer] however does not believe patient is a candidate for weaning or extubation given her current settings and some tongue swelling that has been appreciated. For that reason we were consulted for tracheostomy and PEG tube placement. Patient on Lovenox 60 mg twice a day. Review of Systems ROS unobtainable: due to endotracheal tube, due to mental status Past Medical History Past Medical History: GERD/Reflux, Hypertension, Thyroid Disorder Additional Past Medical History / Comment(s): HEART murmur, IBS, hiatal hernia. raynauds History of Any Multi-Drug Resistant Organisms: None Reported Past Surgical History: Section, Hysterectomy, Orthopedic Surgery, Tonsillectomy, Uterine Ablation Additional Past Surgical History / Comment(s): RT CARPAL TUNNEL, 2 C-Sections Past Anesthesia/Blood Transfusion Reactions: Postoperative Nausea & Vomiting (PONV) Past Psychological History: No Psychological Hx Reported Smoking Status: Never smoker Past Alcohol Use History: None Reported Past Drug Use History: None Reported - Past Family History Father Family Medical History: Cancer Additional Family Medical History / Comment(s): Father has heart problems and has had prostate cancer. He is 78 yrs old. Mother Family Medical History: Cancer, Dementia Additional Family Medical History / Comment(s): Mother of dementia at age 78 yrs. Medications and Allergies Home Medications Medication Instructions Recorded Confirmed Type Levothyroxine Sodium [Synthroid] 75 mcg PO MOTUWETHFR 05/06/15 09/05/20 History Metoprolol Tartrate [Lopressor] 100 mg PO DAILY 05/06/15 09/05/20 History Montelukast [Singulair] 10 mg PO HS 05/06/15 09/05/20 History Rosuvastatin [Crestor] 10 mg PO HS 05/06/15 09/05/20 History lisinopriL [Prinivil] 5 mg PO HS 11/12/18 09/05/20 History metFORMIN HCL [Glucophage] 500 mg PO BID 11/12/18 09/05/20 History Aspirin EC [Ecotrin Low Dose] 81 mg PO HS 09/05/20 09/05/20 History Citalopram Hydrobromide [CeleXA] 40 mg PO DAILY 09/05/20 09/05/20 History Fexofenadine HCl [Shamika Allergy] 180 mg PO HS 09/05/20 09/05/20 History Levothyroxine Sodium [Synthroid] 37.5 mcg PO SA 09/05/20 09/05/20 History Melatonin 5 mg PO HS 09/05/20 09/05/20 History Multivitamins, Thera [Multivitamin 1 tab PO HS 09/05/20 09/05/20 History (formulary)] Omeprazole 20 mg PO BID 09/05/20 09/05/20 History amLODIPine [Norvasc] 5 mg PO DAILY@1400 09/05/20 09/05/20 History lisinopriL [Zestril] 10 mg PO DAILY 09/05/20 09/05/20 History Allergies Allergy/AdvReac Type Severity Reaction Status Date / Time Penicillins Allergy Rash/Hives Verified 09/05/20 20:18 Surgical - Exam Vital Signs Temp Pulse Resp BP Pulse Ox 100.9 F H 84 24 130/72 84 L 09/05/20 17:37 09/05/20 17:37 09/05/20 17:37 09/05/20 17:37 09/05/20 17:37 Physical exam: General: Well-developed, well-nourished HEENT: Normocephalic, sclerae nonicteric, some Neck swelling, Tongue swelling obviously present without evidence of necrosis Abdomen: Nontender, nondistended Extremities: Mild lower extremity edema Neuro: Sedated Results - Labs 09/16/20 03:50 09/16/20 03:50 Abnormal Lab Results - Last 24 Hours (Table) 09/12/20 09/13/20 09/15/20 Range/Units 05:20 04:55 11:56 WBC (3.8-10.6) k/uL RBC (3.80-5.40) m/uL Hgb (11.4-16.0) gm/dL Hct (34.0-46.0) % Neutrophils # (1.3-7.7) k/uL Lymphocytes # (1.0-4.8) k/uL Monocytes # (0-1.0) k/uL Fibrinogen (200-500) mg/dL D-Dimer (<0.60) mg/L FEU ABG pH (7.35-7.45) ABG pO2 (83-108) mmHg ABG HCO3 (21-25) mmol/L ABG Total CO2 (19-24) mmol/L ABG O2 Saturation (94-97) % Sodium (137-145) mmol/L BUN (7-17) mg/dL Glucose (74-99) mg/dL POC Glucose (mg/dL) 201 H (75-99) mg/dL Calcium (8.4-10.2) mg/dL ALT (4-34) U/L LD Isoenzymes 505 H 485 H (120-250) U/L LD 1 15 L (19-38) % LD 4 13 H (3-12) % Total Protein (6.3-8.2) g/dL Albumin (3.5-5.0) g/dL 09/15/20 09/16/20 09/16/20 Range/Units 17:17 00:31 03:50 WBC (3.8-10.6) k/uL RBC (3.80-5.40) m/uL Hgb (11.4-16.0) gm/dL Hct (34.0-46.0) % Neutrophils # (1.3-7.7) k/uL Lymphocytes # (1.0-4.8) k/uL Monocytes # (0-1.0) k/uL Fibrinogen 171 L (200-500) mg/dL D-Dimer 5.62 H (<0.60) mg/L FEU ABG pH (7.35-7.45) ABG pO2 (83-108) mmHg ABG HCO3 (21-25) mmol/L ABG Total CO2 (19-24) mmol/L ABG O2 Saturation (94-97) % Sodium (137-145) mmol/L BUN (7-17) mg/dL Glucose (74-99) mg/dL POC Glucose (mg/dL) 125 H 131 H (75-99) mg/dL Calcium (8.4-10.2) mg/dL ALT (4-34) U/L LD Isoenzymes (120-250) U/L LD 1 (19-38) % LD 4 (3-12) % Total Protein (6.3-8.2) g/dL Albumin (3.5-5.0) g/dL 09/16/20 09/16/20 09/16/20 Range/Units 03:50 03:50 05:20 WBC 18.6 H (3.8-10.6) k/uL RBC 3.53 L (3.80-5.40) m/uL Hgb 10.4 L (11.4-16.0) gm/dL Hct 30.6 L (34.0-46.0) % Neutrophils # 16.5 H (1.3-7.7) k/uL Lymphocytes # 0.8 L (1.0-4.8) k/uL Monocytes # 1.1 H (0-1.0) k/uL Fibrinogen (200-500) mg/dL D-Dimer (<0.60) mg/L FEU ABG pH 7.53 H (7.35-7.45) ABG pO2 62 L (83-108) mmHg ABG HCO3 29 H (21-25) mmol/L ABG Total CO2 30 H (19-24) mmol/L ABG O2 Saturation 91.7 L (94-97) % Sodium 133 L (137-145) mmol/L BUN 23 H (7-17) mg/dL Glucose 145 H (74-99) mg/dL POC Glucose (mg/dL) (75-99) mg/dL Calcium 7.6 L (8.4-10.2) mg/dL ALT 47 H (4-34) U/L LD Isoenzymes (120-250) U/L LD 1 (19-38) % LD 4 (3-12) % Total Protein 4.3 L (6.3-8.2) g/dL Albumin 2.4 L (3.5-5.0) g/dL 09/16/20 Range/Units 05:59 WBC (3.8-10.6) k/uL RBC (3.80-5.40) m/uL Hgb (11.4-16.0) gm/dL Hct (34.0-46.0) % Neutrophils # (1.3-7.7) k/uL Lymphocytes # (1.0-4.8) k/uL Monocytes # (0-1.0) k/uL Fibrinogen (200-500) mg/dL D-Dimer (<0.60) mg/L FEU ABG pH (7.35-7.45) ABG pO2 (83-108) mmHg ABG HCO3 (21-25) mmol/L ABG Total CO2 (19-24) mmol/L ABG O2 Saturation (94-97) % Sodium (137-145) mmol/L BUN (7-17) mg/dL Glucose (74-99) mg/dL POC Glucose (mg/dL) 167 H (75-99) mg/dL Calcium (8.4-10.2) mg/dL ALT (4-34) U/L LD Isoenzymes (120-250) U/L LD 1 (19-38) % LD 4 (3-12) % Total Protein (6.3-8.2) g/dL Albumin (3.5-5.0) g/dL Diabetes panel 09/16/20 Range/Units 03:50 Sodium 133 L (137-145) mmol/L Potassium 3.7 (3.5-5.1) mmol/L Chloride 102 (98-107) mmol/L Carbon Dioxide 29 (22-30) mmol/L BUN 23 H (7-17) mg/dL Creatinine 0.52 (0.52-1.04) mg/dL Glucose 145 H (74-99) mg/dL Calcium 7.6 L (8.4-10.2) mg/dL AST 36 (14-36) U/L ALT 47 H (4-34) U/L Alkaline Phosphatase 77 (38-126) U/L Total Protein 4.3 L (6.3-8.2) g/dL Albumin 2.4 L (3.5-5.0) g/dL Calcium panel 09/16/20 Range/Units 03:50 Calcium 7.6 L (8.4-10.2) mg/dL Albumin 2.4 L (3.5-5.0) g/dL Pituitary panel 09/16/20 Range/Units 03:50 Sodium 133 L (137-145) mmol/L Potassium 3.7 (3.5-5.1) mmol/L Chloride 102 (98-107) mmol/L Carbon Dioxide 29 (22-30) mmol/L BUN 23 H (7-17) mg/dL Creatinine 0.52 (0.52-1.04) mg/dL Glucose 145 H (74-99) mg/dL Calcium 7.6 L (8.4-10.2) mg/dL Adrenal panel 09/16/20 Range/Units 03:50 Sodium 133 L (137-145) mmol/L Potassium 3.7 (3.5-5.1) mmol/L Chloride 102 (98-107) mmol/L Carbon Dioxide 29 (22-30) mmol/L BUN 23 H (7-17) mg/dL Creatinine 0.52 (0.52-1.04) mg/dL Glucose 145 H (74-99) mg/dL Calcium 7.6 L (8.4-10.2) mg/dL Total Bilirubin 0.6 (0.2-1.3) mg/dL AST 36 (14-36) U/L ALT 47 H (4-34) U/L Alkaline Phosphatase 77 (38-126) U/L Total Protein 4.3 L (6.3-8.2) g/dL Albumin 2.4 L (3.5-5.0) g/dL Assessment and Plan (1) Respiratory failure Narrative/Plan: Will proceed with tracheostomy and PEG tube placement tentatively tomorrow. Will discuss with patient's family. I called the and left a message. Current Visit: Yes Status: Acute Code(s): J96.90 - RESPIRATORY FAILURE, UNSP, UNSP W HYPOXIA OR HYPERCAPNIA SNOMED Code(s): 306230733
[2020-09-16 11:32] LABS: Glucose,Whole Blood 182 mg/dL (75-99)
[2020-09-16] MEDS: ALBUTEROL HFA INHALER INHALATION SCH ×4 (11:35→19:53)
--- NOTE | 2020-09-16 11:56 | XR ---
EXAMINATION TYPE: XR chest 1V portable DATE OF EXAM: 09/16/2020 COMPARISON: 09/15/2020 INDICATION: Abnormal auscultation TECHNIQUE: Single frontal view of the chest is obtained. FINDINGS: The heart size is highly prominent. The pulmonary vasculature is normal. Patchy infiltrates are present in the mid lower lung eli bilaterally. Endotracheal tube tip is 1.4 cm above the jason. This could be pulled back approximately 1 cm. Nasog astric tube transverses the thorax. Left central venous catheter tip is in the right atrium. IMPRESSION: 1. Stable bilateral patchy infiltrates. 2. Lines and catheters discussed above. 3. Endotracheal tube tip 1.4 cm above the jason and can be pulled back 1 cm.
[2020-09-16 12:56] LABS: Ferritin 105.7 ng/mL (10.0-291.0)
[2020-09-16] MEDS: fentaNYL (PF). 1,000 MCG in SODIUM CHLORIDE 0.9% 80 ML IV SCH ×2 (14:35→19:59)
[2020-09-16 17:40] LABS: Glucose,Whole Blood 109 mg/dL (75-99)
--- NOTE | 2020-09-16 19:02 | P.PN ---
Progress Note - Text Progress Note Date: 09/16/20 Chief Complaint: Difficulty breathing/COVID positive History of presenting complaint 65-year-old female , whose PCP is Dr. Haq, states she's been exposed to Covid 19 from both her son and daughter who states she's had symptoms similar today for last 8 days which include nausea vomiting recently diarrhea rhinorrhea no overt shortness of breath she does have a cough also a fever and generalized weakness. decreased oral intake. She is here just because she is profoundly weak at this time. Not able to keep fluids down. Admitted with COVID 19 pneumonia. Acute hypoxic respiratory failure. Patient was given convalescent plasma. Dexamethasone, September 07: into respiratory distress. intubated. Given ACTEMRA. Convalescent plasma. , Today: ICU: Ventilator: FiO2 50 and a PEEP of 10. Drips included propofol, Cleviprex, fentanyl, 2 feeding at 10 mL an hour Review of systems: Patient intubated Active Medications Acetaminophen (Acetaminophen Tab 325 Mg Tab) 650 mg PO Q6HR PRN PRN Reason: Mild Pain or Fever > 100.5 Last Admin: 09/06/20 12:25 Dose: 650 mg Documented by: Albuterol Sulfate (Albuterol Hfa Inhaler) 2 puff INHALATION RT-QID PRN PRN Reason: Shortness Of Breath Or Wheezing Albuterol Sulfate (Albuterol Hfa Inhaler) 4 puff INHALATION RT-QID [facility] Last Admin: 09/16/20 15:53 Dose: 4 puff Documented by: Amlodipine Besylate (Amlodipine 5 Mg Tab) 5 mg PO BID [facility] Last Admin: 09/16/20 07:56 Dose: 5 mg Documented by: Artificial Tears (Artificial Tears-Hypromellose Drops 15 Ml Btl) 1 drops BOTH EYES Q4H [facility] Last Admin: 09/16/20 16:00 Dose: 1 drops Documented by: Ascorbic Acid (Ascorbic Acid 500 Mg Tab) 1,000 mg PO DAILY [facility] Last Admin: 09/16/20 07:56 Dose: 1,000 mg Documented by: Aspirin (Aspirin 81 Mg) 81 mg PO [facility] Last Admin: 09/15/20 20:02 Dose: 81 mg Documented by: Atorvastatin Calcium (Atorvastatin 20 Mg Tab) 20 mg PO [facility] Last Admin: 09/15/20 20:02 Dose: 20 mg Documented by: Chlorhexidine Gluconate (Chlorhexidine Gluconate 15 Ml Cup) 15 ml MUCOUS MEM BID [facility] Last Admin: 09/16/20 07:56 Dose: 15 ml Documented by: Cholecalciferol (Cholecalciferol 25 Mcg (1000 Iu) Tablet) 125 mcg PO DAILY [facility] Last Admin: 09/16/20 07:55 Dose: 125 mcg Documented by: Citalopram Hydrobromide (Citalopram Hydrobromide 20 Mg Tab) 40 mg PO DAILY [facility] Last Admin: 09/16/20 07:56 Dose: 40 mg Documented by: Dexamethasone Sodium Phosphate (Dexamethasone Sod Phosphate 10 Mg/Ml 1 Ml Vial) 6 mg IV BID [facility] Enoxaparin Sodium (Enoxaparin 60 Mg/0.6 Ml Syringe) 60 mg SQ BID [facility] Last Admin: 09/16/20 07:57 Dose: 60 mg Documented by: Furosemide (Furosemide 10 Mg/Ml 4 Ml Vial) 40 mg IV Q12HR [facility] Last Admin: 09/16/20 07:56 Dose: 40 mg Documented by: Hydralazine HCl (Hydralazine Hcl 50 Mg Tab) 100 mg PO TID [facility] Last Admin: 09/16/20 18:06 Dose: 100 mg Documented by: Propofol 1,000 mg/ IV Solution 100 mls @ 0 mls/hr IV .Q0M [facility]; Protocol Last Admin: 09/16/20 15:40 Dose: 50 mcg/kg/min, 24.51 mls/hr Documented by: Sodium Chloride (Saline 0.9%) 1,000 mls @ 20 mls/hr IV .Q24H [facility] Last Admin: 09/15/20 20:05 Dose: 20 mls/hr Documented by: Clevidipine 25 mg/ IV Solution 50 mls @ 2 mls/hr IV .Q24H [facility]; Protocol Last Titration: 09/16/20 11:44 Dose: Infused Documented by: Fentanyl Citrate 1,000 mcg/ (Sodium Chloride) 100 mls @ 0 mls/hr IV .Q0M [facility]; Protocol Last Admin: 09/16/20 14:35 Dose: 2 mcg/kg/hr, 16.34 mls/hr Documented by: Insulin Aspart (Insulin Aspart (Novolog) 100 Unit/Ml Vial) 0 unit SQ Q6H [facility]; Protocol Last Admin: 09/16/20 18:09 Dose: Not Given Documented by: Lactulose (Lactulose 20 Gm/30 Ml Cup) 30 gm PO BID PRN PRN Reason: Constipation Levothyroxine Sodium (Levothyroxine 75 Mcg Tab) 75 mcg PO [id number] [facility] Last Admin: 09/16/20 06:09 Dose: 75 mcg Documented by: Levothyroxine Sodium (Levothyroxine 75 Mcg Tab) 37.5 mcg PO [facility] Last Admin: 09/12/20 21:22 Dose: 37.5 mcg Documented by: Loratadine (Loratadine 10 Mg Tab) 10 mg PO [facility] Last Admin: 09/15/20 20:03 Dose: 10 mg Documented by: Melatonin (Melatonin 5 Mg Tablet) 5 mg PO [facility] Last Admin: 09/15/20 20:03 Dose: 5 mg Documented by: Metoprolol Tartrate (Metoprolol Tartrate 50 Mg Tab) 100 mg PO DAILY [facility] Last Admin: 09/16/20 07:55 Dose: 100 mg Documented by: Miscellaneous Information (Potassium Replacement Protocol 1 Each Misc) 1 each MISCELLANE DAILY PRN; Protocol PRN Reason: Per Protocol Miscellaneous Information (Potassium Replacement Protocol 1 Each Misc) 1 each MISCELLANE DAILY PRN; Protocol PRN Reason: Per Protocol Montelukast Sodium (Montelukast 10 Mg Tab) 10 mg PO [facility] Last Admin: 09/15/20 20:03 Dose: 10 mg Documented by: Multivitamins (Multivitamins, Thera 1 Each Tab) 1 each PO [facility] Last Admin: 09/15/20 20:02 Dose: 1 each Documented by: Naloxone HCl (Naloxone 0.4 Mg/Ml 1 Ml Vial) 0.2 mg IV Q2M PRN PRN Reason: Opioid Reversal Pantoprazole Sodium (Pantoprazole 40 Mg/10 Ml Vial) 40 mg IVP BID [facility] Last Admin: 09/16/20 07:56 Dose: 40 mg Documented by: Potassium Bicarbonate (Potassium Bicarbonate/Cit Ac 20 Meq Tablet.Eff) 20 meq NG-TUBE Q1HR [facility]; Protocol Stop: 09/16/20 19:01 Zinc Sulfate (Zinc Sulfate 220 Mg Cap) 220 mg PO DAILY [facility] Last Admin: 09/16/20 07:57 Dose: 220 mg Documented by: On examination: VITAL SIGNS: Afebrile, 85, 28, 162.75, 96% on the ventilator GENERAL APPEARANCE: laying in bed, intubated . ETT, OGtube-2 feeding HEENT: Endotracheal tube PSYCHIATRY: Unable to assess Rest of exam as per pulmonary nursing INVESTIGATIONS, reviewed in the clinical context: September 16: WBC 10.6 hemoglobin 10.4 platelets 279 d-dimer 5.62 potassium 3.7 creatinine 0.5 to September 15: D-dimer 6.75 CRP 7.1 September 14: WBC 12.9 hemoglobin 9.6 potassium 4 creatinine 0.62 September 08: WBC 5.4 hemoglobin 8.8 platelets 237 d-dimer 1.67. Potassium 3.3 creatinine 0.53 CRP 216 September 07: WBC 5.7 hemoglobin 9.2 platelets 250 potassium 3.8 creatinine 0.73 troponin I 0.084 albumin 2.6 Chest x-ray film personally reviewed by me-[September 07: Bilateral infiltrates, confluent more so in the lower zones and metolazone EKG tracing personally reviewed by me-normal sinus rhythm. Nonspecific changes CT [place] chest: Extensive bilateral infiltrates with adenopathy. No PE Blood cultures: Negative Admission labs: Troponin I less than 0.012 Assessment and plan Acute hypoxic respiratory-slow to respond - intubated on September 07. On the ventilator-50 %. PEEP 8 Interstitial pneumonia secondary to COVID-19: Not improving -Receiving Lovenox, dexamethasone, vitamin C vitamin D, Pepcid, zinc. Received ACTEMRA and convalescent plasma Hypothyroidism; - levothyroxine 75 MCG daily Essential Hypertension; better controlled lisinopril to 20 mg twice a day, amlodipine to 5 mg twice a day Hyperlipidemia; -continue with home statin therapy Asthma; not in exacerbation; -continue singular 10 mg daily home inhaler therapy GERD: - Continue with PPI Irritable bowel syndrome: -Follow clinically Raynauds phenomenon. - Follow clinically Diabetes mellitus type 2; uncontrolled with hyperglycemia -hold metformin. Follow Accu-Cheks. Normocytic anemia. -Follow H&H Acute hypoalbuminemia: -Acute phase reactant Obesity BMI 31.4 -To follow outpatient for weight loss measures CODE STATUS; full code Continue current medication treatment plan. Prognosis guarded
[2020-09-16] MEDS: SODIUM CHLORIDE 0.9% 1,000 ML IV SCH (19:30)
[2020-09-16] MEDS: DEXAMETHASONE SOD PHOSPHATE 10 MG/ML 1 ML VIAL IV SCH (20:05)
[2020-09-16] MEDS: ASPIRIN 81 MG PO SCH (20:10)
[2020-09-16] MEDS: ATORVASTATIN 20 MG TAB PO SCH (20:10)
[2020-09-16] MEDS: LORATADINE 10 MG TAB PO SCH (20:10)
[2020-09-16] MEDS: MELATONIN 5 MG TABLET PO SCH (20:10)
[2020-09-16] MEDS: MULTIVITAMINS, THERA 1 EACH TAB PO SCH (20:10)
[2020-09-16] MEDS: MONTELUKAST 10 MG TAB PO SCH (20:10)
[2020-09-16 23:19] LABS: Glucose,Whole Blood 125 mg/dL (75-99)
[2020-09-17] MEDS: fentaNYL (PF). 1,000 MCG in SODIUM CHLORIDE 0.9% 80 ML IV SCH ×4 (01:23→19:48)
[2020-09-17] MEDS: ARTIFICIAL TEARS-HYPROMELLOSE DROPS 15 ML BTL BOTH EYES SCH ×6 (03:12→23:01)
[2020-09-17 04:25] LABS: ALT 44 U/L (4-34); AST 36 U/L (14-36); African American GFR (CKD) >90 (>60 ml/min/1.73 sqM); Albumin 2.3 g/dL (3.5-5.0); Alkaline Phosphatase 71 U/L (38-126); Anion Gap 3 mmol/L; Blood Urea Nitrogen 22 mg/dL (7-17); C Reactive Protein 9.8 mg/L (<10.0); Calcium 7.6 mg/dL (8.4-10.2); Carbon Dioxide 29 mmol/L (22-30); Chloride 101 mmol/L (98-107); Creatine Kinase 68 U/L (30-135); Glucose 121 mg/dL (74-99); Non-African American GFR(CKD) >90 (>60 ml/min/1.73 sqM); Potassium 3.7 mmol/L (3.5-5.1); Sodium 133 mmol/L (137-145); Total Bilirubin 0.5 mg/dL (0.2-1.3); Total Protein 4.2 g/dL (6.3-8.2)
[2020-09-17 04:32] LABS: D-Dimer 2.87 mg/L FEU (<0.60)
[2020-09-17 05:10] LABS: Basophils % (A) 0 %; Eosinophils % (A) 0 %; HCT 27.4 % (34.0-46.0); HGB 9.7 gm/dL (11.4-16.0); Lymphocytes # (A) 0.9 k/uL (1.0-4.8); Lymphocytes % (A) 5 %; MCH 30.3 pg (25.0-35.0); MCHC 35.5 g/dL (31.0-37.0); MCV 85.5 fL (80.0-100.0); Mean Platelet Volume 8.9; Monocytes % (A) 6 %; Neutrophils % (A) 87 %; Platelet Count 214 k/uL (150-450); RBC 3.21 m/uL (3.80-5.40); RDW 14.6 % (11.5-15.5)
[2020-09-17 05:31] LABS: ABG HCO3 30 mmol/L (21-25); ABG Oxygen Saturation 96.4 % (94-97); ABG PCO2 33 mmHg (35-45); ABG PO2 88 mmHg (83-108); ABG TCO2 31 mmol/L (19-24)
[2020-09-17] MEDS: LEVOTHYROXINE 75 MCG TAB PO SCH (05:45)
[2020-09-17 05:57] LABS: ABG PH 7.57 (7.35-7.45); Allen Test Performed? no
[2020-09-17 06:04] LABS: Glucose,Whole Blood 120 mg/dL (75-99)
[2020-09-17] MEDS: INSULIN ASPART (NovoLOG) 100 UNIT/ML VIAL SQ SCH ×4 (06:11→23:43)
[2020-09-17] MEDS: POTASSIUM CHLORIDE 10 MEQ in WATER FOR INJECTION 1 100ML.BAG IVPB SCH ×4 (06:17→22:41)
[2020-09-17] MEDS: ENOXAPARIN 60 MG/0.6 ML SYRINGE SQ SCH (07:27)
[2020-09-17] MEDS: ALBUTEROL HFA INHALER INHALATION SCH ×4 (07:33→19:53)
[2020-09-17] MEDS: PANTOPRAZOLE 40 MG/10 ML VIAL IVP SCH ×2 (08:20→20:11)
[2020-09-17] MEDS: CHLORHEXIDINE GLUCONATE 15 ML CUP MUCOUS MEM SCH ×2 (08:20→20:11)
[2020-09-17] MEDS: hydrALAZINE HCL 50 MG TAB PO SCH ×3 (08:21→21:37)
[2020-09-17] MEDS: FUROSEMIDE 10 MG/ML 4 ML VIAL IV SCH ×2 (08:21→10:37)
[2020-09-17] MEDS: METOPROLOL TARTRATE 50 MG TAB PO SCH (08:21)
[2020-09-17] MEDS: ASCORBIC ACID 500 MG TAB PO SCH (08:21)
[2020-09-17] MEDS: CITALOPRAM HYDROBROMIDE 20 MG TAB PO SCH (08:21)
[2020-09-17] MEDS: amLODIPine 5 MG TAB PO SCH ×2 (08:21→21:37)
[2020-09-17] MEDS: DEXAMETHASONE SOD PHOSPHATE 10 MG/ML 1 ML VIAL IV SCH ×2 (08:21→20:11)
[2020-09-17] MEDS: CHOLECALCIFEROL 25 MCG (1000 IU) TABLET PO SCH (08:22)
[2020-09-17] MEDS: ZINC SULFATE 220 MG CAP PO SCH (08:22)
--- NOTE | 2020-09-17 08:40 | P.PN ---
Subjective Progress Note Date: 09/17/20 On 09/14/2020 and seeing this patient for a follow-up as the patient is sara landaverde intubated on a mechanical ventilated with hypoxic respiratory failure due to COVID 19 related pneumonia and respiratory failure. The patient was intubated on 09/07/2020 and the patient has been treated with a convalescent plasma and received a dose of Actemra and the patient is currently on steroids. On today's evaluation, the patient remains sedated and the patient is currently on a combination of propofol 60 mics /kg per minute and the patient on fentanyl at 3 mcg/kg/h. The patient was also paralyzed and the paramedics was discontinued yesterday at around 10:00. Since then the patient has been off paralytics.. The patient remains on a mechanical ventilator on assist control mode at the rate of 28 with a tidal volume of 400 and FiO2 of 50% with a PEEP of 15. The patient blood gases is still pending from this morning.Chest x-ray showing diffuse bilateral pulmonary infiltrate, and the infiltrates are worse in the right lower lobe compared to the left although there is bilateral pulmonary infiltrates. The patient's subclavian triple-lumen catheter on the left and the patient has an ET tube that that being around 2 cm above the jason. and the patient remains on Lovenox 60 mg every 24 hours. The patient is receiving NovoLog insulin for size. Coverage blood sugar control. The patient is also utilizing clevidipine drip for blood pressure control at 2 mg an hour she is on Norvasc 5 mg by mouth twice a day. The patient is also on metoprolol 100 mg by mouth twice a day. The patient is on Zestril 20 mg by mouth twice a day for blood pressure control. The patient is on levothyroxine 75 g and 37.5 g orally on a daily basis. The patient is receiving enteral feeding for nutritional support. The most recent CRP level is at 9, the most recent LDH level was 1750. D-dimer was elevated at 8.2. Hypertension, hypothyroidism, IBS, hiatal hernia, and the patient initially presented to us on 09/05/2020 with gastrointestinal symptoms and shortness of breath. the morning labs show normal electrolytes, no other abnormalities are noted. The patient remains on IV Solu- Medrol 40 mg every 12 hours. Lovenox is a 60 mg every 12 hours and the patient d-dimer was 8.21. The peak airway pressures around 41. Static pressure is 33- 34. On 09/15/2020, the patient remains intubated on mechanical ventilator. The patient was intubated for Covid 19 related pneumonia. The patient was intubated on 09/07/2020. The patient currently is sedated with propofol which is running at 60 mcg/kg per minute and the fentanyl is also running at 3 mcg/kg/h. The patient is off paralytics for now. Meanwhile, the patient remains an assist- control mode of ventilation which is essentially the same as yesterday. The patient is on a tidal volume of 350 with an FiO2 of 50% and a PEEP of 13 and the rate of 28. The peak airway pressures around 37 anesthetic pressures 34. The patient continues to have a very enlarged and swollen tongue which is nonnecrotic at this point in time. The blood gases from this morning shows a pH of 7.49 with a pCO2 of 38 and a pO2 of 90. Chest x-ray still pending for now. The chest x-ray from yesterday was still showing diffuse bilateral pulmonary infiltrates. Meanwhile, the patient is still on clevidipine drip for blood pressure control. Her blood pressure remains quite elevated. She is running at 4 mg an hour and the patient is also on a combination of Norvasc a total of 10 mg by mouth daily, metoprolol 100 mg by mouth twice a day, Zestril 20 mg by mouth twice a day. She is still receiving Solu-Medrol 40 mg IV every 8 hours. Anticoagulation is with Lovenox 60 mg by subcu twice a day. On her blood work, she has a normal renal function with a BUN of 27 and creatinine of 0.5. Electrolytes are normal. White count of 12.7 with a hemoglobin of 9.8. The liver function tests are essentially within normal limits. Hemodynamically stable. No pressors for now. She is afebrile. Her net fluid balance is been +1.4 L over the past 24 hours. The patient is receiving enteral feeding for nutritional support. She is receiving vital high protein at the rate of 10 mL an hour. She is also receiving NovoLog insulin for sliding scale coverage. 09/16/2020, patient is being seen for a follow-up. The patient remains sedated with propofol at 50 mcg/kg per minute and fentanyl is running at 2.5 mcg/kg/h. No paralytics are being utilized. She remains on a mechanical ventilator. She is still with Covid 19 related pneumonia and she is intubated as such on 09/07/2020. She is on assist control mode at the rate of 28 with a tidal volume of 350 and FiO2 of 50% with a PEEP of 8. We were able to wean the PEEP considerably since yesterday. Her current peak airway pressure is 31. The follow-up blood gases from today showing a pH of 7.52 with a pCO2 of 35 and a pO2 of 61. The chest x-ray from today is showing bilateral pulmonary infiltrates and there is improved aeration in the upper lobes. There is still infiltration of the mid and lower lobes bilaterally. ET tube is in good location. The patient continues to have extensive tongue swelling which is obviously protruding outside her mouth. No signs of any necrosis of the tongue. I stopped the DEV inhibitor. She remains on steroids and the patient is receiving Solu Medrol 40 mg every 8 hours. She remains on Lovenox 60 mg of cutaneous every 12 hours. In terms of her blood work, the patient has a hemoglobin of 10.4 with a white cell count of 18.6, and platelet count is at 279, her d-dimer is at 5.62 which is lower compared to yesterday, the rest of the inflammatory markers are showing a CRP level of 6.9 which is also lower compared to yesterday. LFTs are normal. Creatinine 0.5 which is also normal. He was dynamically stable. She is on no pressors. Fluid balance is -3.8 L over the past 24 hours as the patient was being diuresed with Lasix. She received 40 mg of Lasix every 12 hours and this is obviously helped her with her fluid balance. She is gently sedated for now. She is arousable. Moves around. No agitation. She is quite successfully mechanical ventilator. During feeding is with vital high protein at the rate of 10 mL an hour. Orthostasis thousand and 21, the patient is awaiting PEG and trach. She is currently sedated with propofol running at 50 mcg/kg per minute and the fentanyl is running at 2.5 mcg/kg/h. The patient is on no paralytics. She is arousable and she is following some simple orders and commands even while being on sedation. She is gradually noted to be more aroused. As mentioned earlier she, she is a case of a Covid 19 related pneumonia with secondary respiratory failure and the patient has been on mechanical ventilator since 09/07/2020. She remains on assist control mode at the rate of 28 with a tidal volume of 350 and FiO2 of 50% with a PEEP of 8. The chest x-ray from today is showing infiltration in the mid and lower lung eli bilaterally. Most of the infiltration is in the perihilar area.. X-ray is looking slightly improved compared to yesterday and ET tube remains in a good location, The blood gases from today is showing a pH of 7.57 with a pCO2 of 33 and pO2 of 88. I'm suggesting a drop in her respiratory rate based on the fact that the patient has developed some respirato ry alkalosis. The peak and static pressures are 29 and 22 respectively. I dropped a respiratory rate down to 18 and the flow down to 60. On a separate note, the patient continues to have a very swollen and large tongue which is sticking out of her mouth. I'm not exactly sure what's causing this problem. ET tube may be causing some pressure on her tongue. In any rate, the ET tube was removed and the patient will be having a tracheostomy tube inserted today.. The patient remains on Decadron. The patient is currently on Decadron at a dose of 6 mg IV every 12 hours. The patient is also on Lovenox 60 mg every 12 hours and this is held this morning for surgery. The patient has a d-dimer of 2.87 and the rest of the inflammatory markers are still pending for now. She is hemodynamically stable. Fluid balance is in order of -1.6 L. The patient is getting Lasix 40 mg IV every 12 hours pages also on vital high protein at the rate of 10 mL an hour and currently the enteral feeding is on hold awaiting surgery. Objective - Vital Signs Vital signs: Vital Signs Temp 99.7 F H 09/17/20 04:00 Pulse 59 L 09/17/20 07:00 Resp 28 H 09/17/20 07:00 BP 152/72 09/15/20 19:00 Pulse Ox 95 09/17/20 07:00 Intake & Output 09/16/20 09/17/20 09/17/20 18:59 06:59 18:59 Intake Total 6112.627 9370.853 123 Output Total 1979 1825 110 Balance -977.600 -720.147 13 Weight 81.7 kg 79.1 kg Intake: IV 276 376 123 Potassium Chloride 10 meq 100 100 In Water For Injection 1 100ml.bag @ 100 mls/hr IVPB Q1H [facility] Rx#: [id number] Sodium Chloride 0.9% 1, 240 240 20 000 ml @ 20 mls/hr IV . Q24H [facility] Rx#:[id number] pressure bag 36 36 3 Intake, IV Titration 486.400 558.853 Amount Clevidipine Butyrate 25 36.400 mg In Empty Bag 1 bag @ 1 MG/HR 2 mls/hr IV .Q24H [facility] Rx#:[id number] fentaNYL (PF) 2,500 mcg 250 In Sodium Chloride 0.9% 200 ml @ Per Protocol IV .Q0M [facility] Rx#:[id number] fentaNYL (PF). 1,000 mcg 256.810 In Sodium Chloride 0.9% 80 ml @ Per Protocol IV . Q0M [facility] Rx#:[id number] propofoL 1,000 mg In 200 302.043 Empty Bag 1 bag @ Titrate IV .Q0M [facility] Rx#: [id number] Tube Feeding 150 60 Other 90 110 Output: Urine 1979 Other: Voiding Method Indwelling Catheter Indwelling Catheter ABP, PAP, CO, CI - Last Documented Arterial Blood Pressure 126/54 - Exam No acute distress. The patient is sedated and intubated and on the mechanical ventilator. She is also off paralytics, the tongue is swollen and protruded. The patient is arousable despite being off sedation. I will say she is lightly sedated on a combination of propofol and fentanyl. The bulky protruding tongue remains unchanged. HEENT examination is grossly unremarkable. Orally placed endotracheal tube is noted. Neck supple. Full range of motion. No adenopathy thyromegaly or neck vein distention. Cardiovascular examination reveals regular rhythm rate. S1-S2 normal. No S3 or S4. No discernible murmur noted. Heart rate 75 bpm. Lungs reveal bilateral coarse rhonchi, and by basilar crackles. Breath sounds equal bilaterally. There are no wheezes. Abdomen soft bowel sounds are heard. No masses or tenderness. Extremities are intact. No cyanosis clubbing or edema. Skin is without rash or lesion. Neurologic the patient opens her eyes spontaneously. She is moving all 4 extremities. She gently sedated for now. No focal neurological deficit at this point in time. - Labs CBC & Chem 7: 09/17/20 03:40 09/17/20 03:40 Labs: Abnormal Lab Results - Last 24 Hours (Table) 09/16/20 09/16/20 09/16/20 Range/Units 11:30 17:38 23:15 WBC (3.8-10.6) k/uL RBC (3.80-5.40) m/uL Hgb (11.4-16.0) gm/dL Hct (34.0-46.0) % Neutrophils # (1.3-7.7) k/uL Lymphocytes # (1.0-4.8) k/uL D-Dimer (<0.60) mg/L FEU ABG pH (7.35-7.45) ABG pCO2 (35-45) mmHg ABG HCO3 (21-25) mmol/L ABG Total CO2 (19-24) mmol/L Sodium (137-145) mmol/L BUN (7-17) mg/dL Glucose (74-99) mg/dL POC Glucose (mg/dL) 182 H 109 H 125 H (75-99) mg/dL Calcium (8.4-10.2) mg/dL ALT (4-34) U/L Total Protein (6.3-8.2) g/dL Albumin (3.5-5.0) g/dL 09/17/20 09/17/20 09/17/20 Range/Units 03:40 03:40 03:40 WBC 16.0 H (3.8-10.6) k/uL RBC 3.21 L (3.80-5.40) m/uL Hgb 9.7 L (11.4-16.0) gm/dL Hct 27.4 L (34.0-46.0) % Neutrophils # 14.0 H (1.3-7.7) k/uL Lymphocytes # 0.9 L (1.0-4.8) k/uL D-Dimer 2.87 H (<0.60) mg/L FEU ABG pH (7.35-7.45) ABG pCO2 (35-45) mmHg ABG HCO3 (21-25) mmol/L ABG Total CO2 (19-24) mmol/L Sodium 133 L (137-145) mmol/L BUN 22 H (7-17) mg/dL Glucose 121 H (74-99) mg/dL POC Glucose (mg/dL) (75-99) mg/dL Calcium 7.6 L (8.4-10.2) mg/dL ALT 44 H (4-34) U/L Total Protein 4.2 L (6.3-8.2) g/dL Albumin 2.3 L (3.5-5.0) g/dL 09/17/20 09/17/20 Range/Units 05:30 06:01 WBC (3.8-10.6) k/uL RBC (3.80-5.40) m/uL Hgb (11.4-16.0) gm/dL Hct (34.0-46.0) % Neutrophils # (1.3-7.7) k/uL Lymphocytes # (1.0-4.8) k/uL D-Dimer (<0.60) mg/L FEU ABG pH 7.57 H* (7.35-7.45) ABG pCO2 33 L (35-45) mmHg ABG HCO3 30 H (21-25) mmol/L ABG Total CO2 31 H (19-24) mmol/L Sodium (137-145) mmol/L BUN (7-17) mg/dL Glucose (74-99) mg/dL POC Glucose (mg/dL) 120 H (75-99) mg/dL Calcium (8.4-10.2) mg/dL ALT (4-34) U/L Total Protein (6.3-8.2) g/dL Albumin (3.5-5.0) g/dL Assessment and Plan Plan: #1. Acute hypoxic respiratory failure related to acute COVID 19 pneumonia, patient was admitted to the hospital on 09/05/2020, transfer to the intensive care unit on 09/07/2020 and intubated on 09/07/2020, will receive a dose of Actemra 1, and, convalescent plasma 1 on 09/07/2020, and the patient is currently sedated with a combination of propofol and fentanyl.. Chest x-ray and blood gases were noted. The patient is on Decadron. The patient is arousable. Chest x-ray was noted. Blood gases was noted. Elevation, the patient's blood gases showing a component of respiratory alkalosis and the necessary ventilator changes will be done. Chest x-rays also showing some interval clearing of the bilateral pulmonary infiltrates more so on the right. The patient continues to have a large protruded tongue. This is obviously going to go with anatomic obstruction. The plan is to proceed with a tracheostomy tube insertion for ongoing respiratory care and ongoing need for mechanical ventilation. She will also have a PEG tube inserted. For now, the patient is nothing by mouth and the Lovenox has been held. #2. Increased d-dimer related to the above with no CT evidence of pulmonary embolism, currently on Lovenox 60 mg subcu every 12 hours, the d-dimer from 09/13/2020 was 5.6. Repeat d-dimer is showing lower levels of the Lovenox dose will be adjusted. #3. Increased inflammatory markers #4. Hypertension, off clevidipine drip in addition to a combination of Norvasc and metoprolol for blood pressure control, consider the possibility of angioedema of the tongue from lisinopril. Lisinopril has been discontinued. The patient is currently on when necessary hydralazine #5. Hypothyroidism, currently on thyroid hormone replacement #6. Never smoker #7. IBS #8. Raynaud's #9 swollen and extremely bulky and enlarged tongue, could be ALLERGIC, could be angioedema, consider possibility of anatomic obstruction and secondary swelling. Plan: Continue sedation with combination of propofol and fentanyl, the patient will be gradually weaned off the sedation once she arrived back from the operating room post PEG and trach Lasix to 40 mg every 24 hr Stop the lisinopril on hold and monitor the tongue swelling Continue clevipine on hold Continue ventilator support, drop RR to 18 and flow to 60 Decadron 6 mg IV every 12 hours. Continue Lovenox 40 mg SC qd Monitor inflammatory markers Enteral feeding for nutritional support Humalog sliding scale coverage PEG and trach today Critically care evaluation more than 30 minutes Time with Patient: Greater than 30
[2020-09-17] MEDS ORDERED: ENOXAPARIN 60 MG/0.6 ML SYRINGE SQ SCH (09:00)
--- NOTE | 2020-09-17 09:16 | XR ---
EXAMINATION TYPE: XR chest 1V portable DATE OF EXAM: 09/17/2020 COMPARISON: 09/16/2020 INDICATION: Rhonchi, abnormal auscultation TECHNIQUE: Single frontal view of the chest is obtained. FINDINGS: The heart size is normal. The pulmonary vasculature is normal. Bibasilar infiltrates are present. Small left pleural effusion is present. Endotracheal tube tip is above the jason. Left central venous catheter tip is in the proximal right atrium. Nasogastric tube transverses the thorax. IMPRESSION: 1. Improving bibasilar infiltrates. Small left pleural effusion is present. 2. Lines and catheters discussed above.
[2020-09-17 09:54] LABS: Ferritin 119.8 ng/mL (10.0-291.0)
[2020-09-17] MEDS: ENOXAPARIN 40 MG/0.4 ML SYRINGE SQ SCH (10:37)
[2020-09-17 11:09] LABS: Glucose,Whole Blood 122 mg/dL (75-99)
--- NOTE | 2020-09-17 12:31 | P.PN ---
Progress Note - Text Progress Note Date: 09/17/20 Patient did well overnight. Oxygen requirements slightly improved. She is on sedation and responding to simple commands. Tongue swelling persists. I did speak with the patient's by phone. The procedures both tracheostomy and EGD with PEG tube placement described in detail. Risks of bleeding infection catheter malposition bowel injury and discussed as risks. He understands and wishes to proceed. Lovenox and tube feeds remains on hold.
[2020-09-17] MEDS ORDERED: fentaNYL (PF) 50 MCG/ML 2 ML AMP ONE (13:59)
[2020-09-17] MEDS ORDERED: ROCURONIUM 10 MG/ML (5 ML VIAL) IV ONE (13:59)
[2020-09-17] MEDS ORDERED: IV FLUID CONTINUATION 1,000 ML IV ONE (14:09)
[2020-09-17] MEDS ORDERED: BUPIVACAINE (PF) 0.5% 30 ML VIAL SQ ONE ×2 (14:35)
[2020-09-17] MEDS ORDERED: LACTATED RINGERS 1,000 ML IV ONE (15:48)
--- NOTE | 2020-09-17 15:55 | P.OP ---
Date of Procedure: 09/17/20 Procedure(s) Performed: PREOPERATIVE DIAGNOSIS: Respiratory failure, malnutrition POSTOPERATIVE DIAGNOSIS: Same PROCEDURE: Tracheostomy, EGD with PEG tube placement SURGEON: Servando EBL: 10 mL ANESTHESIA: General COMPLICATIONS: None OPERATIVE PROCEDURE: Patient was placed in the operative table in the supine position. A shoulder roll was utilized. The neck was prepped and draped in usual sterile fashion. The skin was infiltrated with local anesthesia. A small cervical incision was created using the scalpel. Dissection through the subcutaneous fat and platysma layer took place using electrocautery. The underlying strap muscles were divided in the midline. It should be noted that there was some ecchymosis within the strap muscle layer and induration between the strap muscles and the thyroid isthmus. The thyroid isthmus was divided using electrocautery as well. No bleeding was seen. The trachea was easily identified at this time. The endotracheal tube was advanced and the balloon was reinflated. The patient was preoxygenated with 100% FiO2. The FiO2 was then brought down to room air. Once the end title oxygen level was less than 35 a vertical tracheostomy was created using the electrocautery. This went through the second and third tracheal ring. The patient was again preoxygenated with 100% FiO2. The child development teacher was utilized. Carefully the endotracheal tube was withdrawn just proximal to our tracheostomy. The 8-[place]oc[place] Shiley nonfenestrated tracheostomy catheter was advanced under direct visualization into the trachea. This was then connected to the ventilator. Positive end tidal CO2 was confirmed. The tracheal ties were utilized. The trach was sutured to the skin superiorly using 2 separate 0 silk sutures. The skin was closed using 3-0 Vicryl sutures. A dressing was applied. The patient was kept in the supine position on the operating room table. The Olympus gastroscope was inserted into the oropharynx and passed under direct visualization to the region of the duodenum. No obstruction was seen. The pylorus was widely patent. The stomach was carefully inspected. The stomach was fully insufflated with air. The abdominal wall was inspected. The light was seen shining through the abdominal wall in the left upper quadrant. This site was chosen for PEG tube placement. The area was prepped in the usual sterile fashion. A small vertical incision was made using the scalpel. The Seldinger needle was advanced into the lumen of the stomach the wire was advanced. The wire was grasped with an endoscopic snare. The wire was pulled through the oropharynx. The catheter was then threaded over the guidewire and the guidewire and catheter were pulled anteriorly until the hub of the PEG tube catheter was seated against the anterior wall the stomach. The circular bolster was applied and tightened down. The endoscope was then readvanced into the stomach. There was no evidence of any bleeding and there was appropriate tightness on the bolster. The catheter was cut appropriately. The dual port feeding adapter was applied. DISPOSITION: Case discussed with reference services head. The patient's significant tongue swelling and some purulent fluid noted in the oropharynx was discussed. The tongue itself had some irritation from the underlying teeth on the inferior aspect. We decided to consult ear nose and throat at that point. I spoke with Dr. Rutherford. He will be evaluating later tonight or tomorrow.
[2020-09-17 17:59] LABS: Glucose,Whole Blood 103 mg/dL (75-99)
[2020-09-17] MEDS: SODIUM CHLORIDE 0.9% 1,000 ML IV SCH (18:11)
--- NOTE | 2020-09-17 18:41 | P.PN ---
Progress Note - Text Progress Note Date: 09/17/20 Chief Complaint: Difficulty breathing/COVID positive History of presenting complaint 65-year-old female , whose PCP is Dr. Haq, states she's been exposed to Covid 19 from both her son and daughter who states she's had symptoms similar today for last 8 days which include nausea vomiting recently diarrhea rhinorrhea no overt shortness of breath she does have a cough also a fever and generalized weakness. decreased oral intake. She is here just because she is profoundly weak at this time. Not able to keep fluids down. Admitted with COVID 19 pneumonia. Acute hypoxic respiratory failure. Patient was given convalescent plasma. Dexamethasone, September 07: into respiratory distress. intubated. Given ACTEMRA. Convalescent plasma. , Today: ICU: Ventilator: FiO2 30 and a PEEP of 5. 2 feeding is on hold. Patient is pending a colostomy and PEG tube placement later this afternoon. Telemetry sinus rhythm. Drips included propofol and fentanyl. Does occasionally open eyes Review of systems: Patient intubated Active Medications Acetaminophen (Acetaminophen Tab 325 Mg Tab) 650 mg PO Q6HR PRN PRN Reason: Mild Pain or Fever > 100.5 Last Admin: 09/06/20 12:25 Dose: 650 mg Documented by: Albuterol Sulfate (Albuterol Hfa Inhaler) 2 puff INHALATION RT-QID PRN PRN Reason: Shortness Of Breath Or Wheezing Albuterol Sulfate (Albuterol Hfa Inhaler) 4 puff INHALATION RT-QID [facility] [place] Last Admin: 09/17/20 16:40 Dose: 4 puff Documented by: Amlodipine Besylate (Amlodipine 5 Mg Tab) 5 mg PO BID [facility] [place] Last Admin: 09/17/20 08:21 Dose: 5 mg Documented by: Artificial Tears (Artificial Tears-Hypromellose Drops 15 Ml Btl) 1 drops BOTH EYES Q4H [facility] [place] Last Admin: 09/17/20 16:39 Dose: 1 drops Documented by: Ascorbic Acid (Ascorbic Acid 500 Mg Tab) 1,000 mg PO DAILY [facility] [place] Last Admin: 09/17/20 08:21 Dose: 1,000 mg Documented by: Aspirin (Aspirin 81 Mg) 81 mg PO [facility] Last Admin: 09/16/20 20:10 Dose: 81 mg Documented by: Atorvastatin Calcium (Atorvastatin 20 Mg Tab) 20 mg PO [facility] Last Admin: 09/16/20 20:10 Dose: 20 mg Documented by: Chlorhexidine Gluconate (Chlorhexidine Gluconate 15 Ml Cup) 15 ml MUCOUS MEM BID [facility] [place] Last Admin: 09/17/20 08:20 Dose: 15 ml Documented by: Cholecalciferol (Cholecalciferol 25 Mcg (1000 Iu) Tablet) 125 mcg PO DAILY [facility] [place] Last Admin: 09/17/20 08:22 Dose: 125 mcg Documented by: Citalopram Hydrobromide (Citalopram Hydrobromide 20 Mg Tab) 40 mg PO DAILY [facility] [place] Last Admin: 09/17/20 08:21 Dose: 40 mg Documented by: Dexamethasone Sodium Phosphate (Dexamethasone Sod Phosphate 10 Mg/Ml 1 Ml Vial) 6 mg IV BID [facility] [place] Last Admin: 09/17/20 08:21 Dose: 6 mg Documented by: Enoxaparin Sodium (Enoxaparin 40 Mg/0.4 Ml Syringe) 40 mg SQ DAILY [facility] [place] Last Admin: 09/17/20 10:37 Dose: Not Given Documented by: Furosemide (Furosemide 10 Mg/Ml 4 Ml Vial) 40 mg IV DAILY [facility] Last Admin: 09/17/20 10:37 Dose: Not Given Documented by: Hydralazine HCl (Hydralazine Hcl 50 Mg Tab) 100 mg PO TID [facility] [place] Last Admin: 09/17/20 16:39 Dose: 100 mg Documented by: Propofol 1,000 mg/ IV Solution 100 mls @ 0 mls/hr IV .Q0M [facility] [place]; Protocol Last Admin: 09/17/20 18:09 Dose: 50 mcg/kg/min, 24.51 mls/hr Documented by: Sodium Chloride (Saline 0.9%) 1,000 mls @ 20 mls/hr IV .Q24H [facility] [place] Last Admin: 09/17/20 18:11 Dose: 20 mls/hr Documented by: Fentanyl Citrate 1,000 mcg/ (Sodium Chloride) 100 mls @ 0 mls/hr IV .Q0M [facility] [place]; Protocol Last Admin: 09/17/20 12:03 Dose: 2 mcg/kg/hr, 16.34 mls/hr Documented by: Insulin Aspart (Insulin Aspart (Novolog) 100 Unit/Ml Vial) 0 unit SQ Q6H [facility] [place]; Protocol Last Admin: 09/17/20 18:10 Dose: Not Given Documented by: Lactulose (Lactulose 20 Gm/30 Ml Cup) 30 gm PO BID PRN PRN Reason: Constipation Levothyroxine Sodium (Levothyroxine 75 Mcg Tab) 75 mcg PO [id number] [facility] [place] Last Admin: 09/17/20 05:45 Dose: Not Given Documented by: Levothyroxine Sodium (Levothyroxine 75 Mcg Tab) 37.5 mcg PO [facility] Last Admin: 09/12/20 21:22 Dose: 37.5 mcg Documented by: Loratadine (Loratadine 10 Mg Tab) 10 mg PO [facility] Last Admin: 09/16/20 20:10 Dose: 10 mg Documented by: Melatonin (Melatonin 5 Mg Tablet) 5 mg PO [facility] Last Admin: 09/16/20 20:10 Dose: 5 mg Documented by: Metoprolol Tartrate (Metoprolol Tartrate 50 Mg Tab) 100 mg PO DAILY [facility] [place] Last Admin: 09/17/20 08:21 Dose: 100 mg Documented by: Miscellaneous Information (Potassium Replacement Protocol 1 Each Misc) 1 each MISCELLANE DAILY PRN; Protocol PRN Reason: Per Protocol Miscellaneous Information (Potassium Replacement Protocol 1 Each Misc) 1 each MISCELLANE DAILY PRN; Protocol PRN Reason: Per Protocol Montelukast Sodium (Montelukast 10 Mg Tab) 10 mg PO [facility] Last Admin: 09/16/20 20:10 Dose: 10 mg Documented by: Multivitamins (Multivitamins, Thera 1 Each Tab) 1 each PO [facility] Last Admin: 09/16/20 20:10 Dose: 1 each Documented by: Naloxone HCl (Naloxone 0.4 Mg/Ml 1 Ml Vial) 0.2 mg IV Q2M PRN PRN Reason: Opioid Reversal Pantoprazole Sodium (Pantoprazole 40 Mg/10 Ml Vial) 40 mg IVP BID [facility] [place] [place] Last Admin: 09/17/20 08:20 Dose: 40 mg Documented by: Zinc Sulfate (Zinc Sulfate 220 Mg Cap) 220 mg PO DAILY [facility] Last Admin: 09/17/20 08:22 Dose: 220 mg Documented by: On examination: VITAL SIGNS: 98.9, 59, 18, 104/44, 95% on the ventilator GENERAL APPEARANCE: laying in bed, intubated . ETT, OGtube-2 feeding HEENT: Endotracheal tube PSYCHIATRY: Unable to assess Rest of exam as per pulmonary nursing INVESTIGATIONS, reviewed in the clinical context: September 17: WBC 16 hemoglobin 9.7 platelets 214 potassium 3.7 creatinine 0.59 September 16: WBC 10.6 hemoglobin 10.4 platelets 279 d-dimer 5.62 potassium 3.7 creatinine 0.5 to September 15: D-dimer 6.75 CRP 7.1 September 14: WBC 12.9 hemoglobin 9.6 potassium 4 creatinine 0.62 September 08: WBC 5.4 hemoglobin 8.8 platelets 237 d-dimer 1.67. Potassium 3.3 creatinine 0.53 CRP 216 September 07: WBC 5.7 hemoglobin 9.2 platelets 250 potassium 3.8 creatinine 0.73 troponin I 0.084 albumin 2.6 Chest x-ray film personally reviewed by me-[September 07: Bilateral infiltrates, confluent more so in the lower zones and metolazone EKG tracing personally reviewed by me-normal sinus rhythm. Nonspecific changes CT Mora chest: Extensive bilateral infiltrates with adenopathy. No PE Blood cultures: Negative Admission labs: Troponin I less than 0.012 Assessment and plan Acute hypoxic respiratory-slow to respond - intubated on September 07. On the ventilator-01/11 Interstitial pneumonia secondary to COVID-19: Not improving -Receiving Lovenox, dexamethasone, vitamin C vitamin D, Pepcid, zinc. Received ACTEMRA and convalescent plasma Hypothyroidism; - levothyroxine 75 MCG daily Essential Hypertension; better controlled lisinopril to 20 mg twice a day, amlodipine to 5 mg twice a day Hyperlipidemia; -continue with home statin therapy Asthma; not in exacerbation; -continue singular 10 mg daily home inhaler therapy GERD: - Continue with PPI Irritable bowel syndrome: -Follow clinically Raynauds phenomenon. - Follow clinically Diabetes mellitus type 2; uncontrolled with hyperglycemia -hold metformin. Follow Accu-Cheks. Normocytic anemia. -Follow H&H Acute hypoalbuminemia: -Acute phase reactant Obesity BMI 31.4 -To follow outpatient for weight loss measures CODE STATUS; full code Pending placement of tracheostomy and PEG tube today. Prognosis guarded.
[2020-09-17] MEDS: MELATONIN 5 MG TABLET PO SCH (20:11)
[2020-09-17] MEDS: MONTELUKAST 10 MG TAB PO SCH (20:11)
[2020-09-17] MEDS: ASPIRIN 81 MG PO SCH (20:11)
[2020-09-17] MEDS: LORATADINE 10 MG TAB PO SCH (20:11)
[2020-09-17] MEDS: ATORVASTATIN 20 MG TAB PO SCH (20:11)
[2020-09-17] MEDS: MULTIVITAMINS, THERA 1 EACH TAB PO SCH (20:12)
[2020-09-17 23:39] LABS: Glucose,Whole Blood 103 mg/dL (75-99)
[2020-09-18] MEDS: fentaNYL (PF). 1,000 MCG in SODIUM CHLORIDE 0.9% 80 ML IV SCH ×4 (02:05→23:19)
[2020-09-18 04:43] LABS: ABG Base Excess 5.9 mmol/L; ABG HCO3 30 mmol/L (21-25); ABG Oxygen Saturation 97.9 % (94-97); ABG PCO2 43 mmHg (35-45); ABG PH 7.45 (7.35-7.45); ABG PO2 154 mmHg (83-108); ABG TCO2 31 mmol/L (19-24); Allen Test Performed? Yes
[2020-09-18] MEDS: ARTIFICIAL TEARS-HYPROMELLOSE DROPS 15 ML BTL BOTH EYES SCH ×5 (04:59→19:52)
[2020-09-18 05:51] LABS: Glucose,Whole Blood 115 mg/dL (75-99)
[2020-09-18] MEDS: INSULIN ASPART (NovoLOG) 100 UNIT/ML VIAL SQ SCH ×3 (06:11→17:34)
[2020-09-18] MEDS: LEVOTHYROXINE 75 MCG TAB PO SCH (06:12)
[2020-09-18 06:57] LABS: Basophils % (A) 0 %; Eosinophils % (A) 0 %; HGB 8.8 gm/dL (11.4-16.0); Lymphocytes # (A) 0.5 k/uL (1.0-4.8); Lymphocytes % (A) 5 %; MCH 29.7 pg (25.0-35.0); MCHC 33.8 g/dL (31.0-37.0); MCV 87.9 fL (80.0-100.0); Mean Platelet Volume 9.3; Monocytes # (A) 0.7 k/uL (0-1.0); Monocytes % (A) 6 %; Neutrophils # (A) 10.3 k/uL (1.3-7.7); Neutrophils % (A) 88 %; Platelet Count 175 k/uL (150-450); RBC 2.96 m/uL (3.80-5.40); RDW 14.6 % (11.5-15.5); WBC 11.6 k/uL (3.8-10.6)
[2020-09-18 07:02] LABS: ALT 48 U/L (4-34); AST 36 U/L (14-36); African American GFR (CKD) >90 (>60 ml/min/1.73 sqM); Albumin 2.2 g/dL (3.5-5.0); Alkaline Phosphatase 74 U/L (38-126); Anion Gap 2 mmol/L; Blood Urea Nitrogen 20 mg/dL (7-17); Calcium 7.6 mg/dL (8.4-10.2); Carbon Dioxide 29 mmol/L (22-30); Chloride 104 mmol/L (98-107); Glucose 117 mg/dL (74-99); Non-African American GFR(CKD) >90 (>60 ml/min/1.73 sqM); Potassium 4.2 mmol/L (3.5-5.1); Sodium 135 mmol/L (137-145); Total Bilirubin 0.5 mg/dL (0.2-1.3); Total Protein 4.1 g/dL (6.3-8.2)
[2020-09-18] MEDS: ALBUTEROL HFA INHALER INHALATION SCH ×4 (07:51→22:56)
[2020-09-18] MEDS: PANTOPRAZOLE 40 MG/10 ML VIAL IVP SCH ×2 (08:02→20:30)
[2020-09-18] MEDS: ENOXAPARIN 40 MG/0.4 ML SYRINGE SQ SCH (08:02)
[2020-09-18] MEDS: CHLORHEXIDINE GLUCONATE 15 ML CUP MUCOUS MEM SCH ×2 (08:02→20:30)
[2020-09-18] MEDS: DEXAMETHASONE SOD PHOSPHATE 10 MG/ML 1 ML VIAL IV SCH (08:02)
[2020-09-18] MEDS: amLODIPine 5 MG TAB PO SCH ×2 (08:03→20:30)
[2020-09-18] MEDS: METOPROLOL TARTRATE 50 MG TAB PO SCH (08:03)
[2020-09-18] MEDS: ASCORBIC ACID 500 MG TAB PO SCH (08:03)
[2020-09-18] MEDS: FUROSEMIDE 10 MG/ML 4 ML VIAL IV SCH (08:03)
[2020-09-18] MEDS: CITALOPRAM HYDROBROMIDE 20 MG TAB PO SCH (08:03)
[2020-09-18] MEDS: CHOLECALCIFEROL 25 MCG (1000 IU) TABLET PO SCH (08:03)
[2020-09-18] MEDS: ZINC SULFATE 220 MG CAP PO SCH (08:03)
[2020-09-18] MEDS: hydrALAZINE HCL 50 MG TAB PO SCH ×3 (08:03→20:30)
--- NOTE | 2020-09-18 09:24 | P.PN ---
Subjective Progress Note Date: 09/18/20 On 09/14/2020 and seeing this patient for a follow-up as the patient is sara landaverde intubated on a mechanical ventilated with hypoxic respiratory failure due to COVID 19 related pneumonia and respiratory failure. The patient was intubated on 09/07/2020 and the patient has been treated with a convalescent plasma and received a dose of Actemra and the patient is currently on steroids. On today's evaluation, the patient remains sedated and the patient is currently on a combination of propofol 60 mics /kg per minute and the patient on fentanyl at 3 mcg/kg/h. The patient was also paralyzed and the paramedics was discontinued yesterday at around 10:00. Since then the patient has been off paralytics.. The patient remains on a mechanical ventilator on assist control mode at the rate of 28 with a tidal volume of 400 and FiO2 of 50% with a PEEP of 15. The patient blood gases is still pending from this morning.Chest x-ray showing diffuse bilateral pulmonary infiltrate, and the infiltrates are worse in the right lower lobe compared to the left although there is bilateral pulmonary infiltrates. The patient's subclavian triple-lumen catheter on the left and the patient has an ET tube that that being around 2 cm above the jason. and the patient remains on Lovenox 60 mg every 24 hours. The patient is receiving NovoLog insulin for size. Coverage blood sugar control. The patient is also utilizing clevidipine drip for blood pressure control at 2 mg an hour she is on Norvasc 5 mg by mouth twice a day. The patient is also on metoprolol 100 mg by mouth twice a day. The patient is on Zestril 20 mg by mouth twice a day for blood pressure control. The patient is on levothyroxine 75 g and 37.5 g orally on a daily basis. The patient is receiving enteral feeding for nutritional support. The most recent CRP level is at 9, the most recent LDH level was 1750. D-dimer was elevated at 8.2. Hypertension, hypothyroidism, IBS, hiatal hernia, and the patient initially presented to us on 09/05/2020 with gastrointestinal symptoms and shortness of breath. the morning labs show normal electrolytes, no other abnormalities are noted. The patient remains on IV Solu- Medrol 40 mg every 12 hours. Lovenox is a 60 mg every 12 hours and the patient d-dimer was 8.21. The peak airway pressures around 41. Static pressure is 33- 34. On 09/15/2020, the patient remains intubated on mechanical ventilator. The patient was intubated for Covid 19 related pneumonia. The patient was intubated on 09/07/2020. The patient currently is sedated with propofol which is running at 60 mcg/kg per minute and the fentanyl is also running at 3 mcg/kg/h. The patient is off paralytics for now. Meanwhile, the patient remains an assist- control mode of ventilation which is essentially the same as yesterday. The patient is on a tidal volume of 350 with an FiO2 of 50% and a PEEP of 13 and the rate of 28. The peak airway pressures around 37 anesthetic pressures 34. The patient continues to have a very enlarged and swollen tongue which is nonnecrotic at this point in time. The blood gases from this morning shows a pH of 7.49 with a pCO2 of 38 and a pO2 of 90. Chest x-ray still pending for now. The chest x-ray from yesterday was still showing diffuse bilateral pulmonary infiltrates. Meanwhile, the patient is still on clevidipine drip for blood pressure control. Her blood pressure remains quite elevated. She is running at 4 mg an hour and the patient is also on a combination of Norvasc a total of 10 mg by mouth daily, metoprolol 100 mg by mouth twice a day, Zestril 20 mg by mouth twice a day. She is still receiving Solu-Medrol 40 mg IV every 8 hours. Anticoagulation is with Lovenox 60 mg by subcu twice a day. On her blood work, she has a normal renal function with a BUN of 27 and creatinine of 0.5. Electrolytes are normal. White count of 12.7 with a hemoglobin of 9.8. The liver function tests are essentially within normal limits. Hemodynamically stable. No pressors for now. She is afebrile. Her net fluid balance is been +1.4 L over the past 24 hours. The patient is receiving enteral feeding for nutritional support. She is receiving vital high protein at the rate of 10 mL an hour. She is also receiving NovoLog insulin for sliding scale coverage. 09/16/2020, patient is being seen for a follow-up. The patient remains sedated with propofol at 50 mcg/kg per minute and fentanyl is running at 2.5 mcg/kg/h. No paralytics are being utilized. She remains on a mechanical ventilator. She is still with Covid 19 related pneumonia and she is intubated as such on 09/07/2020. She is on assist control mode at the rate of 28 with a tidal volume of 350 and FiO2 of 50% with a PEEP of 8. We were able to wean the PEEP considerably since yesterday. Her current peak airway pressure is 31. The follow-up blood gases from today showing a pH of 7.52 with a pCO2 of 35 and a pO2 of 61. The chest x-ray from today is showing bilateral pulmonary infiltrates and there is improved aeration in the upper lobes. There is still infiltration of the mid and lower lobes bilaterally. ET tube is in good location. The patient continues to have extensive tongue swelling which is obviously protruding outside her mouth. No signs of any necrosis of the tongue. I stopped the DEV inhibitor. She remains on steroids and the patient is receiving Solu Medrol 40 mg every 8 hours. She remains on Lovenox 60 mg of cutaneous every 12 hours. In terms of her blood work, the patient has a hemoglobin of 10.4 with a white cell count of 18.6, and platelet count is at 279, her d-dimer is at 5.62 which is lower compared to yesterday, the rest of the inflammatory markers are showing a CRP level of 6.9 which is also lower compared to yesterday. LFTs are normal. Creatinine 0.5 which is also normal. He was dynamically stable. She is on no pressors. Fluid balance is -3.8 L over the past 24 hours as the patient was being diuresed with Lasix. She received 40 mg of Lasix every 12 hours and this is obviously helped her with her fluid balance. She is gently sedated for now. She is arousable. Moves around. No agitation. She is quite successfully mechanical ventilator. During feeding is with vital high protein at the rate of 10 mL an hour. Orthostasis thousand and 21, the patient is awaiting PEG and trach. She is currently sedated with propofol running at 50 mcg/kg per minute and the fentanyl is running at 2.5 mcg/kg/h. The patient is on no paralytics. She is arousable and she is following some simple orders and commands even while being on sedation. She is gradually noted to be more aroused. As mentioned earlier she, she is a case of a Covid 19 related pneumonia with secondary respiratory failure and the patient has been on mechanical ventilator since 09/07/2020. She remains on assist control mode at the rate of 28 with a tidal volume of 350 and FiO2 of 50% with a PEEP of 8. The chest x-ray from today is showing infiltration in the mid and lower lung eli bilaterally. Most of the infiltration is in the perihilar area.. X-ray is looking slightly improved compared to yesterday and ET tube remains in a good location, The blood gases from today is showing a pH of 7.57 with a pCO2 of 33 and pO2 of 88. I'm suggesting a drop in her respiratory rate based on the fact that the patient has developed some respirato ry alkalosis. The peak and static pressures are 29 and 22 respectively. I dropped a respiratory rate down to 18 and the flow down to 60. On a separate note, the patient continues to have a very swollen and large tongue which is sticking out of her mouth. I'm not exactly sure what's causing this problem. ET tube may be causing some pressure on her tongue. In any rate, the ET tube was removed and the patient will be having a tracheostomy tube inserted today.. The patient remains on Decadron. The patient is currently on Decadron at a dose of 6 mg IV every 12 hours. The patient is also on Lovenox 60 mg every 12 hours and this is held this morning for surgery. The patient has a d-dimer of 2.87 and the rest of the inflammatory markers are still pending for now. She is hemodynamically stable. Fluid balance is in order of -1.6 L. The patient is getting Lasix 40 mg IV every 12 hours pages also on vital high protein at the rate of 10 mL an hour and currently the enteral feeding is on hold awaiting surgery. On today's evaluation of 09/17/2020, the patient is post PEG tube insertion and tracheostomy tube insertion. As noted earlier, the patient had a massively enlarged and swollen and protruding the tongue and on today's evaluation the tongue seems to be smaller and more retracted as the orotracheal tube has been taken out and the patient was given a tracheostomy. Currently she is a trach tube which is a Shiley #8. She is calm and comfortable. She is on a combination of propofol and fentanyl. We're the process of weaning the sedation. She is arousable. She is following commands. She is currently running at propofol at 40 mcg/kg per minute and fentanyl is running at 2 mcg/kg/h. She stated that she was in pain and essentially intended to drop the propofol and keep the fentanyl for now. She is quite successfully mechanical ventilator. She is currently on assist control mode with a rate of 18 and tidal volume of 350and FiO2 of 40% with a PEEP of 8. The blood gases from today showing a pH of 7.45 with a pCO2 43 and pO2 of 154. The patient is also having a follow-up chest x-ray that showed adequate positioning of the orotracheal tube. There is some limited infiltration of the lung bases bilaterally. There is also a left subclavian triple-lumen catheter. Otherwise, the patient is doing well. She is arousable. She is following some simple commands. The peak airway pressure on the mechanical ventilator is 24. She remains on Decadron 6 mg IV every 12 hours and the patient is also on Lovenox at a dose of 40 mg every 24 hours. On her blood work, the patient has a d-dimer of 1.83, the patient's LDH level is 1080 and a CRP level was not obtained on today's evaluation. As such, COVID-19 pneumonia is table and the patient is post tracheostomy tube insertion for the need of a prolonged ventilatory support. As far as enteral feeding, the patient was receiving vital high protein is be restarted within 24 hours a PEG tube insertion. PEG tube exit site is dry clean and intact at this point in time. No fever. Hemodynamically stable. No pressors. ENT was consulted regarding the tongue swelling. We are the process of weaning this patient of sedation. Protest on Levaquin for a few days ago was 0.05. Objective - Vital Signs Vital signs: Vital Signs Temp 98.4 F 09/18/20 08:00 Pulse 74 09/18/20 09:00 Resp 23 09/18/20 09:00 BP 152/72 09/15/20 19:00 Pulse Ox 96 09/18/20 09:00 Intake & Output 09/17/20 09/18/20 09/18/20 18:59 06:59 18:59 Intake Total 1423.139 581.638 161.886 Output Total 2045 952 480 Balance -621.861 -370.362 -318.114 Weight 79 kg Intake: IV 945 356 39 Potassium Chloride 10 meq 100 200 In Water For Injection 1 100ml.bag @ 100 mls/hr IVPB Q1H [facility] Rx#: [id number] Sodium Chloride 0.9% 1, 200 120 30 000 ml @ 20 mls/hr IV . Q24H [facility] Rx#:[id number] pressure bag 45 36 9 Intake, IV Titration 418.139 130.638 122.886 Amount fentaNYL (PF). 1,000 mcg 193.955 100 53.524 In Sodium Chloride 0.9% 80 ml @ Per Protocol IV . Q0M [facility] Rx#:[id number] propofoL 1,000 mg In 224.184 30.638 69.362 Empty Bag 1 bag @ Titrate IV .Q0M [facility] Rx#: [id number] Other 60 95 Output: Urine 2034 952 480 Estimated Blood Loss 10 Other: Voiding Method Indwelling Catheter Indwelling Catheter Indwelling Catheter ABP, PAP, CO, CI - Last Documented Arterial Blood Pressure 162/78 - Exam The patient is arousable and she has smoked is eye-opening. She is on a combination of propofol and fentanyl. She is a tracheostomy tube in place. Tongue is less protruded and less swollen compared to yesterday. No signs of tongue necrosis in the mid part of the tongue or the tip. She is able to move her tongue for now Head exam was generally normal. There was no scleral icterus or corneal arcus. Mucous membranes were moist. Neck was supple and without jugular venous distension, thyromegaly, or carotid bruits. Carotids were easily palpable bilaterally. There was no adenopathy. Patient has a #8 [address] trache[address] tube [address] place. Neck supple. Full range of motion. No adenopathy thyromegaly or neck vein distention. Cardiovascular examination reveals regular rhythm rate. S1-S2 normal. No S3 or S4. No discernible murmur noted. Heart rate 75 bpm. Lungs reveal bilateral coarse rhonchi, and by basilar crackles. Breath sounds equal bilaterally. There are no wheezes. Abdomen soft bowel sounds are heard. No masses or tenderness.The patient has a PEG tube in place and the PEG tube site is dry clean and intact and there is no evidence of any bleeds. Extremities are intact. No cyanosis clubbing or edema. Skin is without rash or lesion. Neurologic the patient opens her eyes spontaneously. She is moving all 4 extremities. She gently sedated for now. No focal neurological deficit at this point in time.The patient is arousable. The patient is unresponsive. The patient is moving all 4 extremities. She is following commands. She has generalized global weakness. - Labs CBC & Chem 7: 09/18/20 03:40 09/18/20 03:40 Labs: Abnormal Lab Results - Last 24 Hours (Table) 09/17/20 09/17/20 09/17/20 Range/Units 03:40 11:07 17:57 WBC (3.8-10.6) k/uL RBC (3.80-5.40) m/uL Hgb (11.4-16.0) gm/dL Hct (34.0-46.0) % Neutrophils # (1.3-7.7) k/uL Lymphocytes # (1.0-4.8) k/uL D-Dimer (<0.60) mg/L FEU ABG pO2 (83-108) mmHg ABG HCO3 (21-25) mmol/L ABG Total CO2 (19-24) mmol/L ABG O2 Saturation (94-97) % Sodium (137-145) mmol/L BUN (7-17) mg/dL Glucose (74-99) mg/dL POC Glucose (mg/dL) 122 H 103 H (75-99) mg/dL Calcium (8.4-10.2) mg/dL ALT (4-34) U/L Lactate Dehydrogenase 492 H (120-246) U/L Total Protein (6.3-8.2) g/dL Albumin (3.5-5.0) g/dL 09/17/20 09/18/20 09/18/20 Range/Units 23:37 03:40 03:40 WBC (3.8-10.6) k/uL RBC (3.80-5.40) m/uL Hgb (11.4-16.0) gm/dL Hct (34.0-46.0) % Neutrophils # (1.3-7.7) k/uL Lymphocytes # (1.0-4.8) k/uL D-Dimer 1.83 H (<0.60) mg/L FEU ABG pO2 (83-108) mmHg ABG HCO3 (21-25) mmol/L ABG Total CO2 (19-24) mmol/L ABG O2 Saturation (94-97) % Sodium (137-145) mmol/L BUN (7-17) mg/dL Glucose (74-99) mg/dL POC Glucose (mg/dL) 103 H (75-99) mg/dL Calcium (8.4-10.2) mg/dL ALT (4-34) U/L Lactate Dehydrogenase 1080 H (120-246) U/L Total Protein (6.3-8.2) g/dL Albumin (3.5-5.0) g/dL 09/18/20 09/18/20 09/18/20 Range/Units 03:40 03:40 04:26 WBC 11.6 H (3.8-10.6) k/uL RBC 2.96 L (3.80-5.40) m/uL Hgb 8.8 L (11.4-16.0) gm/dL Hct 26.0 L (34.0-46.0) % Neutrophils # 10.3 H (1.3-7.7) k/uL Lymphocytes # 0.5 L (1.0-4.8) k/uL D-Dimer (<0.60) mg/L FEU ABG pO2 154 H (83-108) mmHg ABG HCO3 30 H (21-25) mmol/L ABG Total CO2 31 H (19-24) mmol/L ABG O2 Saturation 97.9 H (94-97) % Sodium 135 L (137-145) mmol/L BUN 20 H (7-17) mg/dL Glucose 117 H (74-99) mg/dL POC Glucose (mg/dL) (75-99) mg/dL Calcium 7.6 L (8.4-10.2) mg/dL ALT 48 H (4-34) U/L Lactate Dehydrogenase (120-246) U/L Total Protein 4.1 L (6.3-8.2) g/dL Albumin 2.2 L (3.5-5.0) g/dL 09/18/20 Range/Units 05:48 WBC (3.8-10.6) k/uL RBC (3.80-5.40) m/uL Hgb (11.4-16.0) gm/dL Hct (34.0-46.0) % Neutrophils # (1.3-7.7) k/uL Lymphocytes # (1.0-4.8) k/uL D-Dimer (<0.60) mg/L FEU ABG pO2 (83-108) mmHg ABG HCO3 (21-25) mmol/L ABG Total CO2 (19-24) mmol/L ABG O2 Saturation (94-97) % Sodium (137-145) mmol/L BUN (7-17) mg/dL Glucose (74-99) mg/dL POC Glucose (mg/dL) 115 H (75-99) mg/dL Calcium (8.4-10.2) mg/dL ALT (4-34) U/L Lactate Dehydrogenase (120-246) U/L Total Protein (6.3-8.2) g/dL Albumin (3.5-5.0) g/dL Assessment and Plan Plan: #1. Acute hypoxic respiratory failure related to acute COVID 19 pneumonia, patient was admitted to the hospital on for possible transfer, transfer to the intensive care unit on 09/07/2020 and intubated on 09/07/2020, will receive a dose of Actemra 1, and, convalescent plasma 1 on 09/07/2020, and the patient is currently sedated with a combination of propofol and fentanyl. The chest x- ray from today and the blood gas was noted. The necessity ventilator changes will be done. The patient has a nicely inserted a cath every 2 which is a #8 Shiley and this was inserted on 09/17/2020. No complications. We are in the process of gradually withdrawing sedation, propofol first and fentanyl next. #2. elevated inflammatory markers including LDH. D-dimer is down and the patient is only on prophylactic dose of Lovenox #3. swollen and extremely bulky and enlarged tongue, could be ALLERGIC, could be angioedema, consider possibility of anatomic obstruction and secondary swelling. The swelling is improved compared to yesterday and the patient has no orotracheal tube removed and the patient is a tracheostomy tube in place #4. Hypertension, off clevidipine drip in addition to a combination of Norvasc and metoprolol for blood pressure control, consider the possibility of angioedema of the tongue from lisinopril. Lisinopril has been discontinued. The patient is currently on when necessary hydralazine #5. Hypothyroidism, currently on thyroid hormone replacement #6. Never smoker #7. IBS #8. Raynaud's #9 Plan: Continue sedation with combination of propofol and fentanyl Drop the PEEP down to 5 Lasix to 40 mg IV every 24 hr, balance is -1.6 L over the past 24 hours Stop the lisinopril on hold and monitor the tongue swelling, ENT consultation has been obtained Continue clevipine on hold Decadron 6 mg IV and that it used to dose to every 24 hours Continue Lovenox 40 mg SC qd Monitor inflammatory markers Enteral feeding for nutritional support, post tracheostomy tube insertion Humalog sliding scale coverage Consult select specialty for possible LTAC transfer. Critically care evaluation more than 30 minutes Time with Patient: Greater than 30
--- NOTE | 2020-09-18 10:42 | XR ---
EXAMINATION TYPE: XR chest 1V portable DATE OF EXAM: 09/18/2020 Comparison: 09/17/2020 Clinical History: 65-year-old female POST TRACH Findings: Tracheostomy cannula. Left subclavian CVC tip in the upper right atrium. Heart normal size. Dense ret rocardiac opacity and additional patchy lower lung opacities. Aeration shows some improvement on the right. Impression: 1. Interval conversion to tracheostomy cannula. 2. Continued bibasilar airspace disease though with some improvement in aeration of the right.
[2020-09-18 11:21] LABS: Glucose,Whole Blood 110 mg/dL (75-99)
--- NOTE | 2020-09-18 12:13 | P.PN ---
Subjective Progress Note Date: 09/18/20 Principal diagnosis: Respiratory failure Patient doing well today. She is awake on the ventilator at present. No obvious discomfort. Pulmonary status improved. Being seen by ENT regarding tongue swelling. Tongue swelling per nursing's improved as well. Gastric output from [place] connected to the PEG tube 250 mL overnight. Objective - Vital Signs Vital signs: Vital Signs Temp 98.4 F 09/18/20 08:00 Pulse 71 09/18/20 11:00 Resp 22 09/18/20 11:00 BP 152/72 09/15/20 19:00 Pulse Ox 95 09/18/20 11:00 Intake & Output 09/17/20 09/18/20 09/18/20 18:59 06:59 18:59 Intake Total 1423.139 581.638 237.077 Output Total 2045 952 1755 Balance -621.861 -370.362 -1517.923 Weight 79 kg 79 kg Intake: IV 945 356 65 Potassium Chloride 10 meq 100 200 In Water For Injection 1 100ml.bag @ 100 mls/hr IVPB Q1H [facility] Rx#: [id number] Sodium Chloride 0.9% 1, 200 120 50 000 ml @ 20 mls/hr IV . Q24H [facility] Rx#:[id number] pressure bag 45 36 15 Intake, IV Titration 418.139 130.638 172.077 Amount fentaNYL (PF). 1,000 mcg 193.955 100 88.021 In Sodium Chloride 0.9% 80 ml @ Per Protocol IV . Q0M [facility] Rx#:[id number] propofoL 1,000 mg In 224.184 30.638 84.056 Empty Bag 1 bag @ Titrate IV .Q0M [facility] Rx#: [id number] Other 60 95 Output: Urine 2035 952 1755 Estimated Blood Loss 10 Other: Voiding Method Indwelling Catheter Indwelling Catheter Indwelling Catheter ABP, PAP, CO, CI - Last Documented Arterial Blood Pressure 150/68 - Exam Trach site clean and dry, no erythema, tongue one third smaller in size Abdomen soft, mild tenderness around PEG tube site - Labs CBC & Chem 7: 09/18/20 03:40 09/18/20 03:40 Labs: Abnormal Lab Results - Last 24 Hours (Table) 09/17/20 09/17/20 09/17/20 Range/Units 03:40 17:57 23:37 WBC (3.8-10.6) k/uL RBC (3.80-5.40) m/uL Hgb (11.4-16.0) gm/dL Hct (34.0-46.0) % Neutrophils # (1.3-7.7) k/uL Lymphocytes # (1.0-4.8) k/uL D-Dimer (<0.60) mg/L FEU ABG pO2 (83-108) mmHg ABG HCO3 (21-25) mmol/L ABG Total CO2 (19-24) mmol/L ABG O2 Saturation (94-97) % Sodium (137-145) mmol/L BUN (7-17) mg/dL Glucose (74-99) mg/dL POC Glucose (mg/dL) 103 H 103 H (75-99) mg/dL Calcium (8.4-10.2) mg/dL ALT (4-34) U/L Lactate Dehydrogenase 492 H (120-246) U/L Total Protein (6.3-8.2) g/dL Albumin (3.5-5.0) g/dL 09/18/20 09/18/20 09/18/20 Range/Units 03:40 03:40 03:40 WBC 11.6 H (3.8-10.6) k/uL RBC 2.96 L (3.80-5.40) m/uL Hgb 8.8 L (11.4-16.0) gm/dL Hct 26.0 L (34.0-46.0) % Neutrophils # 10.3 H (1.3-7.7) k/uL Lymphocytes # 0.5 L (1.0-4.8) k/uL D-Dimer 1.83 H (<0.60) mg/L FEU ABG pO2 (83-108) mmHg ABG HCO3 (21-25) mmol/L ABG Total CO2 (19-24) mmol/L ABG O2 Saturation (94-97) % Sodium (137-145) mmol/L BUN (7-17) mg/dL Glucose (74-99) mg/dL POC Glucose (mg/dL) (75-99) mg/dL Calcium (8.4-10.2) mg/dL ALT (4-34) U/L Lactate Dehydrogenase 1080 H (120-246) U/L Total Protein (6.3-8.2) g/dL Albumin (3.5-5.0) g/dL 09/18/20 09/18/20 09/18/20 Range/Units 03:40 04:26 05:48 WBC (3.8-10.6) k/uL RBC (3.80-5.40) m/uL Hgb (11.4-16.0) gm/dL Hct (34.0-46.0) % Neutrophils # (1.3-7.7) k/uL Lymphocytes # (1.0-4.8) k/uL D-Dimer (<0.60) mg/L FEU ABG pO2 154 H (83-108) mmHg ABG HCO3 30 H (21-25) mmol/L ABG Total CO2 31 H (19-24) mmol/L ABG O2 Saturation 97.9 H (94-97) % Sodium 135 L (137-145) mmol/L BUN 20 H (7-17) mg/dL Glucose 117 H (74-99) mg/dL POC Glucose (mg/dL) 115 H (75-99) mg/dL Calcium 7.6 L (8.4-10.2) mg/dL ALT 48 H (4-34) U/L Lactate Dehydrogenase (120-246) U/L Total Protein 4.1 L (6.3-8.2) g/dL Albumin 2.2 L (3.5-5.0) g/dL 09/18/20 Range/Units 11:19 WBC (3.8-10.6) k/uL RBC (3.80-5.40) m/uL Hgb (11.4-16.0) gm/dL Hct (34.0-46.0) % Neutrophils # (1.3-7.7) k/uL Lymphocytes # (1.0-4.8) k/uL D-Dimer (<0.60) mg/L FEU ABG pO2 (83-108) mmHg ABG HCO3 (21-25) mmol/L ABG Total CO2 (19-24) mmol/L ABG O2 Saturation (94-97) % Sodium (137-145) mmol/L BUN (7-17) mg/dL Glucose (74-99) mg/dL POC Glucose (mg/dL) 110 H (75-99) mg/dL Calcium (8.4-10.2) mg/dL ALT (4-34) U/L Lactate Dehydrogenase (120-246) U/L Total Protein (6.3-8.2) g/dL Albumin (3.5-5.0) g/dL Assessment and Plan (1) Respiratory failure Narrative/Plan: Overall patient seems to be improving. Begin tube feeds at 10 mL per hour. Check residuals every 4-6 hours and hold if greater than 100 mL. Continue ventilatory weaning per pulmonary. Current Visit: Yes Status: Acute Code(s): J96.90 - RESPIRATORY FAILURE, UNSP, UNSP W HYPOXIA OR HYPERCAPNIA SNOMED Code(s): 442823079
--- NOTE | 2020-09-18 12:24 | P.GSCN ---
History of Present Illness Consult date: 09/18/20 Reason for Consult: Tongue swelling Requesting physician: David Al History of present illness: This is a 65-year-old white female who was intubated secondary to coated 19. She developed some significant tongue swelling. Yesterday she underwent a tracheotomy and was extubated. The nursing staff tells me that the tongue swelling has gone down by 25-33% since extubation yesterday. The patient is not on lisinopril or any DEV inhibitor use. Patient is not able to communicate and the history is through her surgeon and the nursing staff. No other significant issues noted. Review of Systems ROS unobtainable: due to endotracheal tube - Constitutional Reports as per HPI - EENT Ears, nose, mouth and throat: Reports as per HPI Past Medical History Past Medical History: GERD/Reflux, Hypertension, Thyroid Disorder Additional Past Medical History / Comment(s): HEART murmur, IBS, hiatal hernia. raynauds History of Any Multi-Drug Resistant Organisms: None Reported Past Surgical History: Section, Hysterectomy, Orthopedic Surgery, Tonsillectomy, Uterine Ablation Additional Past Surgical History / Comment(s): RT CARPAL TUNNEL, 2 C-Sections Past Anesthesia/Blood Transfusion Reactions: Postoperative Nausea & Vomiting (PONV) Past Psychological History: No Psychological Hx Reported Smoking Status: Never smoker Past Alcohol Use History: None Reported Past Drug Use History: None Reported - Past Family History Father Family Medical History: Cancer Additional Family Medical History / Comment(s): Father has heart problems and has had prostate cancer. He is 78 yrs old. Mother Family Medical History: Cancer, Dementia Additional Family Medical History / Comment(s): Mother of dementia at age 78 yrs. Medications and Allergies Home Medications Medication Instructions Recorded Confirmed Type Levothyroxine Sodium [Synthroid] 75 mcg PO MOTUWETHFR 05/06/15 09/05/20 History Metoprolol Tartrate [Lopressor] 100 mg PO DAILY 05/06/15 09/05/20 History Montelukast [Singulair] 10 mg PO HS 05/06/15 09/05/20 History Rosuvastatin [Crestor] 10 mg PO HS 05/06/15 09/05/20 History lisinopriL [Prinivil] 5 mg PO HS 11/12/18 09/05/20 History metFORMIN HCL [Glucophage] 500 mg PO BID 11/12/18 09/05/20 History Aspirin EC [Ecotrin Low Dose] 81 mg PO HS 09/05/20 09/05/20 History Citalopram Hydrobromide [CeleXA] 40 mg PO DAILY 09/05/20 09/05/20 History Fexofenadine HCl [Shamika Allergy] 180 mg PO HS 09/05/20 09/05/20 History Levothyroxine Sodium [Synthroid] 37.5 mcg PO SA 09/05/20 09/05/20 History Melatonin 5 mg PO HS 09/05/20 09/05/20 History Multivitamins, Thera [Multivitamin 1 tab PO HS 09/05/20 09/05/20 History (formulary)] Omeprazole 20 mg PO BID 09/05/20 09/05/20 History amLODIPine [Norvasc] 5 mg PO DAILY@1400 09/05/20 09/05/20 History lisinopriL [Zestril] 10 mg PO DAILY 09/05/20 09/05/20 History Allergies Allergy/AdvReac Type Severity Reaction Status Date / Time Penicillins Allergy Rash/Hives Verified 09/05/20 20:18 Surgical - Exam Osteopathic Statement: *. No significant issues noted on an osteopathic structural exam other than those noted in the History and Physical/Consult. Vital Signs Temp Pulse Resp BP Pulse Ox 100.9 F H 84 24 130/72 84 L 09/05/20 17:37 09/05/20 17:37 09/05/20 17:37 09/05/20 17:37 09/05/20 17:37 - General no distress, obese - Eyes PERRL, normal ocular movement - ENT Head is in the cephalic face is symmetric. Ears auricles well formed canals are clear. Nose is patent. Mouth and throat demonstrates an enlarged tongue with no signs of any mucosal ulcerations or tumors or masses. Manual palpation reveals a soft but enlarged tongue. No signs of any lateral dental infections or other abnormalities. normal pinna, normal nares - Neck Tracheotomy tube in place no masses, no bruits - Respiratory normal expansion, normal respiratory effort Results - Labs 09/18/20 03:40 09/18/20 03:40 Abnormal Lab Results - Last 24 Hours (Table) 09/17/20 09/17/20 09/17/20 Range/Units 03:40 17:57 23:37 WBC (3.8-10.6) k/uL RBC (3.80-5.40) m/uL Hgb (11.4-16.0) gm/dL Hct (34.0-46.0) % Neutrophils # (1.3-7.7) k/uL Lymphocytes # (1.0-4.8) k/uL D-Dimer (<0.60) mg/L FEU ABG pO2 (83-108) mmHg ABG HCO3 (21-25) mmol/L ABG Total CO2 (19-24) mmol/L ABG O2 Saturation (94-97) % Sodium (137-145) mmol/L BUN (7-17) mg/dL Glucose (74-99) mg/dL POC Glucose (mg/dL) 103 H 103 H (75-99) mg/dL Calcium (8.4-10.2) mg/dL ALT (4-34) U/L Lactate Dehydrogenase 492 H (120-246) U/L Total Protein (6.3-8.2) g/dL Albumin (3.5-5.0) g/dL 09/18/20 09/18/20 09/18/20 Range/Units 03:40 03:40 03:40 WBC 11.6 H (3.8-10.6) k/uL RBC 2.96 L (3.80-5.40) m/uL Hgb 8.8 L (11.4-16.0) gm/dL Hct 26.0 L (34.0-46.0) % Neutrophils # 10.3 H (1.3-7.7) k/uL Lymphocytes # 0.5 L (1.0-4.8) k/uL D-Dimer 1.83 H (<0.60) mg/L FEU ABG pO2 (83-108) mmHg ABG HCO3 (21-25) mmol/L ABG Total CO2 (19-24) mmol/L ABG O2 Saturation (94-97) % Sodium (137-145) mmol/L BUN (7-17) mg/dL Glucose (74-99) mg/dL POC Glucose (mg/dL) (75-99) mg/dL Calcium (8.4-10.2) mg/dL ALT (4-34) U/L Lactate Dehydrogenase 1080 H (120-246) U/L Total Protein (6.3-8.2) g/dL Albumin (3.5-5.0) g/dL 09/18/20 09/18/20 09/18/20 Range/Units 03:40 04:26 05:48 WBC (3.8-10.6) k/uL RBC (3.80-5.40) m/uL Hgb (11.4-16.0) gm/dL Hct (34.0-46.0) % Neutrophils # (1.3-7.7) k/uL Lymphocytes # (1.0-4.8) k/uL D-Dimer (<0.60) mg/L FEU ABG pO2 154 H (83-108) mmHg ABG HCO3 30 H (21-25) mmol/L ABG Total CO2 31 H (19-24) mmol/L ABG O2 Saturation 97.9 H (94-97) % Sodium 135 L (137-145) mmol/L BUN 20 H (7-17) mg/dL Glucose 117 H (74-99) mg/dL POC Glucose (mg/dL) 115 H (75-99) mg/dL Calcium 7.6 L (8.4-10.2) mg/dL ALT 48 H (4-34) U/L Lactate Dehydrogenase (120-246) U/L Total Protein 4.1 L (6.3-8.2) g/dL Albumin 2.2 L (3.5-5.0) g/dL 09/18/20 Range/Units 11:19 WBC (3.8-10.6) k/uL RBC (3.80-5.40) m/uL Hgb (11.4-16.0) gm/dL Hct (34.0-46.0) % Neutrophils # (1.3-7.7) k/uL Lymphocytes # (1.0-4.8) k/uL D-Dimer (<0.60) mg/L FEU ABG pO2 (83-108) mmHg ABG HCO3 (21-25) mmol/L ABG Total CO2 (19-24) mmol/L ABG O2 Saturation (94-97) % Sodium (137-145) mmol/L BUN (7-17) mg/dL Glucose (74-99) mg/dL POC Glucose (mg/dL) 110 H (75-99) mg/dL Calcium (8.4-10.2) mg/dL ALT (4-34) U/L Lactate Dehydrogenase (120-246) U/L Total Protein (6.3-8.2) g/dL Albumin (3.5-5.0) g/dL Diabetes panel 09/17/20 09/18/20 Range/Units 21:07 03:40 Sodium 135 L (137-145) mmol/L Potassium 3.9 4.2 (3.5-5.1) mmol/L Chloride 104 (98-107) mmol/L Carbon Dioxide 29 (22-30) mmol/L BUN 20 H (7-17) mg/dL Creatinine 0.59 (0.52-1.04) mg/dL Glucose 117 H (74-99) mg/dL Calcium 7.6 L (8.4-10.2) mg/dL AST 36 (14-36) U/L ALT 48 H (4-34) U/L Alkaline Phosphatase 74 (38-126) U/L Total Protein 4.1 L (6.3-8.2) g/dL Albumin 2.2 L (3.5-5.0) g/dL Calcium panel 09/18/20 Range/Units 03:40 Calcium 7.6 L (8.4-10.2) mg/dL Albumin 2.2 L (3.5-5.0) g/dL Pituitary panel 09/17/20 09/18/20 Range/Units 21:07 03:40 Sodium 135 L (137-145) mmol/L Potassium 3.9 4.2 (3.5-5.1) mmol/L Chloride 104 (98-107) mmol/L Carbon Dioxide 29 (22-30) mmol/L BUN 20 H (7-17) mg/dL Creatinine 0.59 (0.52-1.04) mg/dL Glucose 117 H (74-99) mg/dL Calcium 7.6 L (8.4-10.2) mg/dL Adrenal panel 09/17/20 09/18/20 Range/Units 21:07 03:40 Sodium 135 L (137-145) mmol/L Potassium 3.9 4.2 (3.5-5.1) mmol/L Chloride 104 (98-107) mmol/L Carbon Dioxide 29 (22-30) mmol/L BUN 20 H (7-17) mg/dL Creatinine 0.59 (0.52-1.04) mg/dL Glucose 117 H (74-99) mg/dL Calcium 7.6 L (8.4-10.2) mg/dL Total Bilirubin 0.5 (0.2-1.3) mg/dL AST 36 (14-36) U/L ALT 48 H (4-34) U/L Alkaline Phosphatase 74 (38-126) U/L Total Protein 4.1 L (6.3-8.2) g/dL Albumin 2.2 L (3.5-5.0) g/dL Assessment and Plan (1) Edema of the tongue Current Visit: Yes Status: Acute Code(s): K14.8 - OTHER DISEASES OF TONGUE SNOMED Code(s): 56354535 Plan: This patient's tongue swelling appears to be secondary to a vascular compromise from an endotracheal tube. Now that the endotracheal tube has been removed or tongue swelling is going down his predicted. I do not see any signs of any specific angioedema etiology. Again I think this is from a vascular compromise from the endotracheal tube and I anticipate resolution over time. Please reconsult me if this swelling should return. Time with Patient: Greater than 30
[2020-09-18 17:29] LABS: Glucose,Whole Blood 87 mg/dL (75-99)
--- NOTE | 2020-09-18 19:20 | P.PN ---
Progress Note - Text Progress Note Date: 09/18/20 Chief Complaint: Difficulty breathing/COVID positive History of presenting complaint 65-year-old female , whose PCP is Dr. Haq, states she's been exposed to Covid 19 from both her son and daughter who states she's had symptoms similar today for last 8 days which include nausea vomiting recently diarrhea rhinorrhea no overt shortness of breath she does have a cough also a fever and generalized weakness. decreased oral intake. She is here just because she is profoundly weak at this time. Not able to keep fluids down. Admitted with COVID 19 pneumonia. Acute hypoxic respiratory failure. Patient was given convalescent plasma. Dexamethasone, September 07: into respiratory distress. intubated. Given ACTEMRA. Convalescent plasma. , September 17: PEG tube and tracheostomy tube done Today: ICU: Ventilator: FiO2 30 and a PEEP of 5. 2 feeding is on hold. Patient is pending a colostomy and PEG tube placement later this afternoon. Telemetry sinus rhythm. Drips included propofol and fentanyl. This seems to understand and follows simple commands Review of systems: Patient intubated Active Medications Acetaminophen (Acetaminophen Tab 325 Mg Tab) 650 mg PO Q6HR PRN PRN Reason: Mild Pain or Fever > 100.5 Last Admin: 09/06/20 12:25 Dose: 650 mg Documented by: Albuterol Sulfate (Albuterol Hfa Inhaler) 2 puff INHALATION RT-QID PRN PRN Reason: Shortness Of Breath Or Wheezing Albuterol Sulfate (Albuterol Hfa Inhaler) 4 puff INHALATION RT-QID [facility] Last Admin: 09/18/20 17:42 Dose: 4 puff Documented by: Amlodipine Besylate (Amlodipine 5 Mg Tab) 5 mg PO BID [facility] Last Admin: 09/18/20 08:03 Dose: 5 mg Documented by: Artificial Tears (Artificial Tears-Hypromellose Drops 15 Ml Btl) 1 drops BOTH EYES Q4H [facility] Last Admin: 09/18/20 16:58 Dose: 1 drops Documented by: Ascorbic Acid (Ascorbic Acid 500 Mg Tab) 1,000 mg PO DAILY [facility] Last Admin: 09/18/20 08:03 Dose: 1,000 mg Documented by: Aspirin (Aspirin 81 Mg) 81 mg PO HS [facility] Last Admin: 09/17/20 20:11 Dose: 81 mg Documented by: Atorvastatin Calcium (Atorvastatin 20 Mg Tab) 20 mg PO HS [facility] Last Admin: 09/17/20 20:11 Dose: 20 mg Documented by: Chlorhexidine Gluconate (Chlorhexidine Gluconate 15 Ml Cup) 15 ml MUCOUS MEM BID [facility] Last Admin: 09/18/20 08:02 Dose: 15 ml Documented by: Cholecalciferol (Cholecalciferol 25 Mcg (1000 Iu) Tablet) 125 mcg PO DAILY [facility] Last Admin: 09/18/20 08:03 Dose: 125 mcg Documented by: Citalopram Hydrobromide (Citalopram Hydrobromide 20 Mg Tab) 40 mg PO DAILY [facility] Last Admin: 09/18/20 08:03 Dose: 40 mg Documented by: Dexamethasone Sodium Phosphate (Dexamethasone Sod Phosphate 10 Mg/Ml 1 Ml Vial) 6 mg IV DAILY [facility] Enoxaparin Sodium (Enoxaparin 40 Mg/0.4 Ml Syringe) 40 mg SQ DAILY [facility] Last Admin: 09/18/20 08:02 Dose: 40 mg Documented by: Furosemide (Furosemide 10 Mg/Ml 4 Ml Vial) 40 mg IV DAILY [facility] Last Admin: 09/18/20 08:03 Dose: 40 mg Documented by: Hydralazine HCl (Hydralazine Hcl 50 Mg Tab) 100 mg PO TID [facility] Last Admin: 09/18/20 16:52 Dose: 100 mg Documented by: Propofol 1,000 mg/ IV Solution 100 mls @ 0 mls/hr IV .Q0M [facility]; Protocol Last Titration: 09/18/20 10:04 Dose: 0 mcg/kg/min, 0 mls/hr Documented by: Sodium Chloride (Saline 0.9%) 1,000 mls @ 20 mls/hr IV .Q24H [facility] Last Admin: 09/17/20 18:11 Dose: 20 mls/hr Documented by: Fentanyl Citrate 1,000 mcg/ (Sodium Chloride) 100 mls @ 0 mls/hr IV .Q0M [facility]; Protocol Last Admin: 09/18/20 16:51 Dose: 2.5 mcg/kg/hr, 19.75 mls/hr Documented by: Insulin Aspart (Insulin Aspart (Novolog) 100 Unit/Ml Vial) 0 unit SQ Q6H [facility]; Protocol Last Admin: 09/18/20 17:34 Dose: Not Given Documented by: Lactulose (Lactulose 20 Gm/30 Ml Cup) 30 gm PO BID PRN PRN Reason: Constipation Levothyroxine Sodium (Levothyroxine 75 Mcg Tab) 75 mcg PO [id number] [facility] Last Admin: 09/18/20 06:12 Dose: 75 mcg Documented by: Levothyroxine Sodium (Levothyroxine 75 Mcg Tab) 37.5 mcg PO [facility] Last Admin: 09/12/20 21:22 Dose: 37.5 mcg Documented by: Loratadine (Loratadine 10 Mg Tab) 10 mg PO [facility] Last Admin: 09/17/20 20:11 Dose: 10 mg Documented by: Melatonin (Melatonin 5 Mg Tablet) 5 mg PO [facility] Last Admin: 09/17/20 20:11 Dose: 5 mg Documented by: Metoprolol Tartrate (Metoprolol Tartrate 50 Mg Tab) 100 mg PO DAILY [facility] Last Admin: 09/18/20 08:03 Dose: 100 mg Documented by: Miscellaneous Information (Potassium Replacement Protocol 1 Each Misc) 1 each MISCELLANE DAILY PRN; Protocol PRN Reason: Per Protocol Miscellaneous Information (Potassium Replacement Protocol 1 Each Misc) 1 each MISCELLANE DAILY PRN; Protocol PRN Reason: Per Protocol Montelukast Sodium (Montelukast 10 Mg Tab) 10 mg PO [facility] Last Admin: 09/17/20 20:11 Dose: 10 mg Documented by: Multivitamins (Multivitamins, Thera 1 Each Tab) 1 each PO [facility] Last Admin: 09/17/20 20:12 Dose: 1 each Documented by: Naloxone HCl (Naloxone 0.4 Mg/Ml 1 Ml Vial) 0.2 mg IV Q2M PRN PRN Reason: Opioid Reversal Pantoprazole Sodium (Pantoprazole 40 Mg/10 Ml Vial) 40 mg IVP BID [facility] Last Admin: 09/18/20 08:02 Dose: 40 mg Documented by: Zinc Sulfate (Zinc Sulfate 220 Mg Cap) 220 mg PO DAILY [facility] Last Admin: 09/18/20 08:03 Dose: 220 mg Documented by: On examination: VITAL SIGNS: 98.4, 76, 19, 157 with 72, 96% on the ventilator NECK: Tracheostomy tube GENERAL APPEARANCE: laying in bed, intubated . ETT, OGtube-2 feeding HEENT: Endotracheal tube PSYCHIATRY: Unable to assess Rest of exam as per pulmonary nursing INVESTIGATIONS, reviewed in the clinical context: September 18: WBC 11.6 hemoglobin 8.8 platelets 175 d-dimer 1.83 potassium 4.2 creatinine 0.59 LDH 180 September 17: WBC 16 hemoglobin 9.7 platelets 214 potassium 3.7 creatinine 0.59 September 16: WBC 10.6 hemoglobin 10.4 platelets 279 d-dimer 5.62 potassium 3.7 creatinine 0.5 to September 15: D-dimer 6.75 CRP 7.1 September 14: WBC 12.9 hemoglobin 9.6 potassium 4 creatinine 0.62 September 08: WBC 5.4 hemoglobin 8.8 platelets 237 d-dimer 1.67. Potassium 3.3 creatinine 0.53 CRP 216 September 07: WBC 5.7 hemoglobin 9.2 platelets 250 potassium 3.8 creatinine 0.73 troponin I 0.084 albumin 2.6 Chest x-ray film personally reviewed by me-[September 07: Bilateral infiltrates, confluent more so in the lower zones and metolazone EKG tracing personally reviewed by me-normal sinus rhythm. Nonspecific changes CT [place] chest: Extensive bilateral infiltrates with adenopathy. No PE Blood cultures: Negative Admission labs: Troponin I less than 0.012 Assessment and plan Acute hypoxic respiratory-slow to respond - intubated on September 07. On the ventilator-01/11 Interstitial pneumonia secondary to COVID-19: Not improving -Receiving Lovenox, dexamethasone, vitamin C vitamin D, Pepcid, zinc. Received ACTEMRA and convalescent plasma Hypothyroidism; - levothyroxine 75 MCG daily Essential Hypertension; better controlled lisinopril to 20 mg twice a day, amlodipine to 5 mg twice a day Hyperlipidemia; -continue with home statin therapy Asthma; not in exacerbation; -continue singular 10 mg daily home inhaler therapy GERD: - Continue with PPI Irritable bowel syndrome: -Follow clinically Raynauds phenomenon. - Follow clinically Diabetes mellitus type 2; uncontrolled with hyperglycemia -hold metformin. Follow Accu-Cheks. Normocytic anemia. -Follow H&H Acute hypoalbuminemia: -Acute phase reactant Obesity BMI 31.4 -To follow outpatient for weight loss measures CODE STATUS; full code -PEG tube and tracheostomy to done on September 17. Continue drips as above. 2 feeding through the PEG tube will resume. Prognosis guarded
[2020-09-18] MEDS: SODIUM CHLORIDE 0.9% 1,000 ML IV SCH (19:34)
[2020-09-18] MEDS: ATORVASTATIN 20 MG TAB PO SCH (20:30)
[2020-09-18] MEDS: MULTIVITAMINS, THERA 1 EACH TAB PO SCH (20:30)
[2020-09-18] MEDS: MELATONIN 5 MG TABLET PO SCH (20:30)
[2020-09-18] MEDS: ASPIRIN 81 MG PO SCH (20:30)
[2020-09-18] MEDS: LORATADINE 10 MG TAB PO SCH (20:30)
[2020-09-18] MEDS: MONTELUKAST 10 MG TAB PO SCH (20:30)
[2020-09-19 00:02] LABS: Glucose,Whole Blood 105 mg/dL (75-99)
[2020-09-19] MEDS: INSULIN ASPART (NovoLOG) 100 UNIT/ML VIAL SQ SCH ×4 (00:06→17:49)
[2020-09-19] MEDS: ARTIFICIAL TEARS-HYPROMELLOSE DROPS 15 ML BTL BOTH EYES SCH ×4 (00:57→12:54)
[2020-09-19] MEDS: fentaNYL (PF). 1,000 MCG in SODIUM CHLORIDE 0.9% 80 ML IV SCH (04:30)
[2020-09-19 04:35] LABS: Basophils % (A) 0 %; Eosinophils % (A) 0 %; HCT 30.1 % (34.0-46.0); HGB 9.7 gm/dL (11.4-16.0); Lymphocytes # (A) 1.4 k/uL (1.0-4.8); Lymphocytes % (A) 11 %; MCH 28.5 pg (25.0-35.0); MCHC 32.1 g/dL (31.0-37.0); MCV 88.7 fL (80.0-100.0); Mean Platelet Volume 8.6; Monocytes # (A) 1.2 k/uL (0-1.0); Monocytes % (A) 10 %; Neutrophils # (A) 9.5 k/uL (1.3-7.7); Neutrophils % (A) 77 %; Platelet Count 217 k/uL (150-450); RBC 3.39 m/uL (3.80-5.40); RDW 14.6 % (11.5-15.5); WBC 12.3 k/uL (3.8-10.6)
[2020-09-19 05:06] LABS: ALT 48 U/L (4-34); AST 35 U/L (14-36); African American GFR (CKD) >90 (>60 ml/min/1.73 sqM); Albumin 2.6 g/dL (3.5-5.0); Alkaline Phosphatase 94 U/L (38-126); Anion Gap 5 mmol/L; Blood Urea Nitrogen 24 mg/dL (7-17); Calcium 8.3 mg/dL (8.4-10.2); Carbon Dioxide 27 mmol/L (22-30); Chloride 102 mmol/L (98-107); Glucose 81 mg/dL (74-99); LDH 1055 U/L (313-618); Non-African American GFR(CKD) >90 (>60 ml/min/1.73 sqM); Potassium 3.9 mmol/L (3.5-5.1); Sodium 134 mmol/L (137-145); Total Bilirubin 0.5 mg/dL (0.2-1.3); Total Protein 4.8 g/dL (6.3-8.2)
[2020-09-19 05:16] LABS: ABG Base Excess 3.8 mmol/L; ABG HCO3 28 mmol/L (21-25); ABG Oxygen Saturation 97.2 % (94-97); ABG PCO2 41 mmHg (35-45); ABG PH 7.44 (7.35-7.45); ABG PO2 107 mmHg (83-108); ABG TCO2 29 mmol/L (19-24)
[2020-09-19 05:39] LABS: Allen Test Performed? no
[2020-09-19 05:42] LABS: Glucose,Whole Blood 99 mg/dL (75-99)
[2020-09-19 06:47] LABS: C Reactive Protein 1.9 mg/dL (<1.0)
--- NOTE | 2020-09-19 07:00 | XR ---
EXAMINATION TYPE: XR chest 1V portable DATE OF EXAM: 09/19/2020 CLINICAL HISTORY: Difficulty breathing progress study. TECHNIQUE: Single AP portable upright view of the chest is obtained. COMPARISON: Chest x-ray from one day earlier and older studies FINDINGS: Stable tracheostomy tube. Stable left subclavian central venous catheter. Diminished inspiration on current study. Cardiac silhouette size is stable and upper limits of normal . Persistent bilateral multifocal increased opacities greatest in the lower lungs. Osseous structures are intact. IMPRESSION: Bilateral multifocal opacities greatest in the lower lungs redemonstrated consistent with covid-19 infection, no significant change from most recent x-ray.
[2020-09-19] MEDS: ALBUTEROL HFA INHALER INHALATION SCH ×4 (07:44→19:12)
[2020-09-19] MEDS ORDERED: POTASSIUM BICARBONATE/CIT AC 20 MEQ TABLET.EFF NG-TUBE SCH (08:00)
[2020-09-19] MEDS: ENOXAPARIN 40 MG/0.4 ML SYRINGE SQ SCH (08:04)
[2020-09-19] MEDS: PANTOPRAZOLE 40 MG/10 ML VIAL IVP SCH ×2 (08:04→20:07)
[2020-09-19] MEDS: amLODIPine 5 MG TAB PO SCH ×2 (08:04→20:03)
[2020-09-19] MEDS: ASCORBIC ACID 500 MG TAB PO SCH (08:04)
[2020-09-19] MEDS: FUROSEMIDE 10 MG/ML 4 ML VIAL IV SCH (08:04)
[2020-09-19] MEDS: ZINC SULFATE 220 MG CAP PO SCH (08:04)
[2020-09-19] MEDS: hydrALAZINE HCL 50 MG TAB PO SCH ×3 (08:04→20:03)
[2020-09-19] MEDS: CHLORHEXIDINE GLUCONATE 15 ML CUP MUCOUS MEM SCH ×2 (08:04→20:03)
[2020-09-19] MEDS: CITALOPRAM HYDROBROMIDE 20 MG TAB PO SCH (08:05)
[2020-09-19] MEDS: METOPROLOL TARTRATE 50 MG TAB PO SCH (08:05)
[2020-09-19] MEDS: CHOLECALCIFEROL 25 MCG (1000 IU) TABLET PO SCH (08:05)
--- NOTE | 2020-09-19 08:45 | P.PN ---
Subjective Progress Note Date: 09/19/20 On 09/14/2020 and seeing this patient for a follow-up as the patient is sara landaverde intubated on a mechanical ventilated with hypoxic respiratory failure due to COVID 19 related pneumonia and respiratory failure. The patient was intubated on 09/07/2020 and the patient has been treated with a convalescent plasma and received a dose of Actemra and the patient is currently on steroids. On today's evaluation, the patient remains sedated and the patient is currently on a combination of propofol 60 mics /kg per minute and the patient on fentanyl at 3 mcg/kg/h. The patient was also paralyzed and the paramedics was discontinued yesterday at around 10:00. Since then the patient has been off paralytics.. The patient remains on a mechanical ventilator on assist control mode at the rate of 28 with a tidal volume of 400 and FiO2 of 50% with a PEEP of 15. The patient blood gases is still pending from this morning.Chest x-ray showing diffuse bilateral pulmonary infiltrate, and the infiltrates are worse in the right lower lobe compared to the left although there is bilateral pulmonary infiltrates. The patient's subclavian triple-lumen catheter on the left and the patient has an ET tube that that being around 2 cm above the jason. and the patient remains on Lovenox 60 mg every 24 hours. The patient is receiving NovoLog insulin for size. Coverage blood sugar control. The patient is also utilizing clevidipine drip for blood pressure control at 2 mg an hour she is on Norvasc 5 mg by mouth twice a day. The patient is also on metoprolol 100 mg by mouth twice a day. The patient is on Zestril 20 mg by mouth twice a day for blood pressure control. The patient is on levothyroxine 75 g and 37.5 g orally on a daily basis. The patient is receiving enteral feeding for nutritional support. The most recent CRP level is at 9, the most recent LDH level was 1750. D-dimer was elevated at 8.2. Hypertension, hypothyroidism, IBS, hiatal hernia, and the patient initially presented to us on 09/05/2020 with gastrointestinal symptoms and shortness of breath. the morning labs show normal electrolytes, no other abnormalities are noted. The patient remains on IV Solu- Medrol 40 mg every 12 hours. Lovenox is a 60 mg every 12 hours and the patient d-dimer was 8.21. The peak airway pressures around 41. Static pressure is 33- 34. On 09/15/2020, the patient remains intubated on mechanical ventilator. The patient was intubated for Covid 19 related pneumonia. The patient was intubated on 09/07/2020. The patient currently is sedated with propofol which is running at 60 mcg/kg per minute and the fentanyl is also running at 3 mcg/kg/h. The patient is off paralytics for now. Meanwhile, the patient remains an assist- control mode of ventilation which is essentially the same as yesterday. The patient is on a tidal volume of 350 with an FiO2 of 50% and a PEEP of 13 and the rate of 28. The peak airway pressures around 37 anesthetic pressures 34. The patient continues to have a very enlarged and swollen tongue which is nonnecrotic at this point in time. The blood gases from this morning shows a pH of 7.49 with a pCO2 of 38 and a pO2 of 90. Chest x-ray still pending for now. The chest x-ray from yesterday was still showing diffuse bilateral pulmonary infiltrates. Meanwhile, the patient is still on clevidipine drip for blood pressure control. Her blood pressure remains quite elevated. She is running at 4 mg an hour and the patient is also on a combination of Norvasc a total of 10 mg by mouth daily, metoprolol 100 mg by mouth twice a day, Zestril 20 mg by mouth twice a day. She is still receiving Solu-Medrol 40 mg IV every 8 hours. Anticoagulation is with Lovenox 60 mg by subcu twice a day. On her blood work, she has a normal renal function with a BUN of 27 and creatinine of 0.5. Electrolytes are normal. White count of 12.7 with a hemoglobin of 9.8. The liver function tests are essentially within normal limits. Hemodynamically stable. No pressors for now. She is afebrile. Her net fluid balance is been +1.4 L over the past 24 hours. The patient is receiving enteral feeding for nutritional support. She is receiving vital high protein at the rate of 10 mL an hour. She is also receiving NovoLog insulin for sliding scale coverage. 09/16/2020, patient is being seen for a follow-up. The patient remains sedated with propofol at 50 mcg/kg per minute and fentanyl is running at 2.5 mcg/kg/h. No paralytics are being utilized. She remains on a mechanical ventilator. She is still with Covid 19 related pneumonia and she is intubated as such on 09/07/2020. She is on assist control mode at the rate of 28 with a tidal volume of 350 and FiO2 of 50% with a PEEP of 8. We were able to wean the PEEP considerably since yesterday. Her current peak airway pressure is 31. The follow-up blood gases from today showing a pH of 7.52 with a pCO2 of 35 and a pO2 of 61. The chest x-ray from today is showing bilateral pulmonary infiltrates and there is improved aeration in the upper lobes. There is still infiltration of the mid and lower lobes bilaterally. ET tube is in good location. The patient continues to have extensive tongue swelling which is obviously protruding outside her mouth. No signs of any necrosis of the tongue. I stopped the DEV inhibitor. She remains on steroids and the patient is receiving Solu Medrol 40 mg every 8 hours. She remains on Lovenox 60 mg of cutaneous every 12 hours. In terms of her blood work, the patient has a hemoglobin of 10.4 with a white cell count of 18.6, and platelet count is at 279, her d-dimer is at 5.62 which is lower compared to yesterday, the rest of the inflammatory markers are showing a CRP level of 6.9 which is also lower compared to yesterday. LFTs are normal. Creatinine 0.5 which is also normal. He was dynamically stable. She is on no pressors. Fluid balance is -3.8 L over the past 24 hours as the patient was being diuresed with Lasix. She received 40 mg of Lasix every 12 hours and this is obviously helped her with her fluid balance. She is gently sedated for now. She is arousable. Moves around. No agitation. She is quite successfully mechanical ventilator. During feeding is with vital high protein at the rate of 10 mL an hour. Orthostasis thousand and 21, the patient is awaiting PEG and trach. She is currently sedated with propofol running at 50 mcg/kg per minute and the fentanyl is running at 2.5 mcg/kg/h. The patient is on no paralytics. She is arousable and she is following some simple orders and commands even while being on sedation. She is gradually noted to be more aroused. As mentioned earlier she, she is a case of a Covid 19 related pneumonia with secondary respiratory failure and the patient has been on mechanical ventilator since 09/07/2020. She remains on assist control mode at the rate of 28 with a tidal volume of 350 and FiO2 of 50% with a PEEP of 8. The chest x-ray from today is showing infiltration in the mid and lower lung eli bilaterally. Most of the infiltration is in the perihilar area.. X-ray is looking slightly improved compared to yesterday and ET tube remains in a good location, The blood gases from today is showing a pH of 7.57 with a pCO2 of 33 and pO2 of 88. I'm suggesting a drop in her respiratory rate based on the fact that the patient has developed some respirato ry alkalosis. The peak and static pressures are 29 and 22 respectively. I dropped a respiratory rate down to 18 and the flow down to 60. On a separate note, the patient continues to have a very swollen and large tongue which is sticking out of her mouth. I'm not exactly sure what's causing this problem. ET tube may be causing some pressure on her tongue. In any rate, the ET tube was removed and the patient will be having a tracheostomy tube inserted today.. The patient remains on Decadron. The patient is currently on Decadron at a dose of 6 mg IV every 12 hours. The patient is also on Lovenox 60 mg every 12 hours and this is held this morning for surgery. The patient has a d-dimer of 2.87 and the rest of the inflammatory markers are still pending for now. She is hemodynamically stable. Fluid balance is in order of -1.6 L. The patient is getting Lasix 40 mg IV every 12 hours pages also on vital high protein at the rate of 10 mL an hour and currently the enteral feeding is on hold awaiting surgery. On today's evaluation of 09/18/2020, the patient is post PEG tube insertion and tracheostomy tube insertion. As noted earlier, the patient had a massively enlarged and swollen and protruding the tongue and on today's evaluation the tongue seems to be smaller and more retracted as the orotracheal tube has been taken out and the patient was given a tracheostomy. Currently she is a trach tube which is a Shiley #8. She is calm and comfortable. She is on a combination of propofol and fentanyl. We're the process of weaning the sedation. She is arousable. She is following commands. She is currently running at propofol at 40 mcg/kg per minute and fentanyl is running at 2 mcg/kg/h. She stated that she was in pain and essentially intended to drop the propofol and keep the fentanyl for now. She is quite successfully mechanical ventilator. She is currently on assist control mode with a rate of 18 and tidal volume of 350and FiO2 of 40% with a PEEP of 8. The blood gases from today showing a pH of 7.45 with a pCO2 43 and pO2 of 154. The patient is also having a follow-up chest x-ray that showed adequate positioning of the orotracheal tube. There is some limited infiltration of the lung bases bilaterally. There is also a left subclavian triple-lumen catheter. Otherwise, the patient is doing well. She is arousable. She is following some simple commands. The peak airway pressure on the mechanical ventilator is 24. She remains on Decadron 6 mg IV every 12 hours and the patient is also on Lovenox at a dose of 40 mg every 24 hours. On her blood work, the patient has a d-dimer of 1.83, the patient's LDH level is 1080 and a CRP level was not obtained on today's evaluation. As such, COVID-19 pneumonia is table and the patient is post tracheostomy tube insertion for the need of a prolonged ventilatory support. As far as enteral feeding, the patient was receiving vital high protein is be restarted within 24 hours a PEG tube insertion. PEG tube exit site is dry clean and intact at this point in time. No fever. Hemodynamically stable. No pressors. ENT was consulted regarding the tongue swelling. We are the process of weaning this patient of sedation. Protest on Levaquin for a few days ago was 0.05. 09/19/2020, the patient is off sedation with propofol and she is on requiring fentanyl at 1.5 mcg/kg per hour and this is only for pain control. she is awake and following commands and answering questions. She is profoundly weak. She again with increasing her fingers and toes. She cannot raise it against gravity. She can move her head. She can blink. Her tongue swelling has improved considerably. She isPost tracheostomy tube insertion and the patient has a #[address]. On today's evaluation, the patient has a assist-control mode rate of 18, tidal volume is at 350, FiO2 is at 40% and a PEEP is currently at 5. The blood gases from today showed a pH of 7.44 with a pCO2 of 41 and pO2 of 107. The chest x-ray from today is showing adequate positioning of the tracheostomy tube. Limited bibasilar pulmonary infiltrates. Findings are essentially stable for now. In terms of inflammatory markers, the d-dimer is down to 3.1 and the LDH level is 1055 and a CRP level is 1.9. Rest of the blood work and electrodes are all within normal limits. She has a PEG tube for which she is getting enteral feeding and nutritional support. She is currently receiving vital high protein at the rate of 30 mL an hour. No abdominal distention. She has not had a bowel movement since 09/11/2020. Her pro-calcitonin level was low. She remains on Lovenox 40 mg subcu every 24 hours. She is also on Decadron 6 mg IV once a day. Objective - Vital Signs Vital signs: Vital Signs Temp 98.6 F 09/19/20 08:00 Pulse 70 09/19/20 08:00 Resp 18 09/19/20 08:00 BP 136/67 09/19/20 08:00 Pulse Ox 97 09/19/20 08:00 Intake & Output 09/18/20 09/19/20 09/19/20 18:59 06:59 18:59 Intake Total 518.077 872.271 103 Output Total 2305 790 90 Balance -1786.923 82.271 13 Weight 79 kg 76.1 kg Intake: IV 156 266 23 Sodium Chloride 0.9% 1, 120 230 20 000 ml @ 20 mls/hr IV . Q24H [facility] Rx#:[id number] pressure bag 36 36 3 Intake, IV Titration 272.077 231.271 Amount fentaNYL (PF). 1,000 mcg 188.021 231.271 In Sodium Chloride 0.9% 80 ml @ Per Protocol IV . Q0M [facility] Rx#:[id number] propofoL 1,000 mg In 84.056 Empty Bag 1 bag @ Titrate IV .Q0M [facility] Rx#: [id number] Tube Feeding 60 240 30 Other 30 135 50 Output: Urine 2305 790 90 Other: Voiding Method Indwelling Catheter Indwelling Catheter Indwelling Catheter ABP, PAP, CO, CI - Last Documented Arterial Blood Pressure 118/45 - Exam The patient is awake and alert and communicating. She has a tracheostomy tube in place. She is very calm and comfortable. No signs of tongue necrosis in the mid part of the tongue or the tip. She is able to move her tongue for now Head exam was generally normal. There was no scleral icterus or corneal arcus. Mucous membranes were moist. Neck was supple and without jugular venous distension, thyromegaly, or carotid bruits. Carotids were easily palpable bilaterally. There was no adenopathy. Patient has a #8 [address] trache[address] tube [address]. Neck supple. Full range of motion. No adenopathy thyromegaly or neck vein distention. Cardiovascular examination reveals regular rhythm rate. S1-S2 normal. No S3 or S4. No discernible murmur noted. Lungs reveal bilateral coarse rhonchi, and by basilar crackles. Breath sounds equal bilaterally. There are no wheezes. Abdomen soft bowel sounds are heard. No masses or tenderness.The patient has a PEG tube in place and the PEG tube site is dry clean and intact and there is no evidence of any bleeds. Extremities are intact. No cyanosis clubbing or edema. Skin is without rash or lesion. Neurologic the patient awake and alert and communicating. She is moving all 4 extremities. She gently sedated for now. No focal neurological deficit at this point in time.The patient is arousable. The patient is unresponsive. The patient is moving all 4 extremities. She is following commands. She has generalized global weakness. - Labs CBC & Chem 7: 09/19/20 04:00 09/19/20 04:00 Labs: Abnormal Lab Results - Last 24 Hours (Table) 09/18/20 09/19/20 09/19/20 Range/Units 11:19 00:00 04:00 WBC (3.8-10.6) k/uL RBC (3.80-5.40) m/uL Hgb (11.4-16.0) gm/dL Hct (34.0-46.0) % Neutrophils # (1.3-7.7) k/uL Monocytes # (0-1.0) k/uL D-Dimer 3.21 H (<0.60) mg/L FEU ABG HCO3 (21-25) mmol/L ABG Total CO2 (19-24) mmol/L ABG O2 Saturation (94-97) % Sodium (137-145) mmol/L BUN (7-17) mg/dL Creatinine (0.52-1.04) mg/dL POC Glucose (mg/dL) 110 H 105 H (75-99) mg/dL Calcium (8.4-10.2) mg/dL ALT (4-34) U/L Lactate Dehydrogenase (313-618) U/L C-Reactive Protein (<1.0) mg/dL Total Protein (6.3-8.2) g/dL Albumin (3.5-5.0) g/dL 09/19/20 09/19/20 09/19/20 Range/Units 04:00 04:00 05:15 WBC 12.3 H (3.8-10.6) k/uL RBC 3.39 L (3.80-5.40) m/uL Hgb 9.7 L (11.4-16.0) gm/dL Hct 30.1 L (34.0-46.0) % Neutrophils # 9.5 H (1.3-7.7) k/uL Monocytes # 1.2 H (0-1.0) k/uL D-Dimer (<0.60) mg/L FEU ABG HCO3 28 H (21-25) mmol/L ABG Total CO2 29 H (19-24) mmol/L ABG O2 Saturation 97.2 H (94-97) % Sodium 134 L (137-145) mmol/L BUN 24 H (7-17) mg/dL Creatinine 0.50 L (0.52-1.04) mg/dL POC Glucose (mg/dL) (75-99) mg/dL Calcium 8.3 L (8.4-10.2) mg/dL ALT 48 H (4-34) U/L Lactate Dehydrogenase 1055 H (313-618) U/L C-Reactive Protein 1.9 H (<1.0) mg/dL Total Protein 4.8 L (6.3-8.2) g/dL Albumin 2.6 L (3.5-5.0) g/dL Assessment and Plan Plan: #1. Acute hypoxic respiratory failure related to acute COVID 19 pneumonia, patient was admitted to the hospital on for possible transfer, transfer to the intensive care unit on 09/07/2020 and intubated on 09/07/2020, will receive a dose of Actemra 1, and, convalescent plasma 1 on 09/07/2020, and the patient is currently sedated with a combination of propofol and fentanyl. The chest x-r ay from today and the blood gas was noted. The necessity ventilator changes will be done. The patient has a nicely inserted a cath every 2 which is a #8 Shiley and this was inserted on 09/17/2020. No complications. The patient is currently off sedation. The patient is currently on an assist-control mode of mechanical ventilation and she is going to be given trial. will start pressure support mode a daily basis. Chest x-ray was noted. Blood gases was noted. oxygenation is improved significantly. She is currently on a PEEP of 5 with an FiO2 of 40% #2. elevated inflammatory markers including LDH. D-dimer is down and the patient is only on prophylactic dose of Lovenox #3. swollen and extremely bulky and enlarged tongue, could be ALLERGIC, could be angioedema, consider possibility of anatomic obstruction and secondary swelling. The swelling is improved compared to yesterday and the patient has no orotracheal tube removed and the patient is a tracheostomy tube in place #4. Hypertension, off clevidipine drip in addition to a combination of Norvasc and metoprolol for blood pressure control, consider the possibility of angioedema of the tongue from lisinopril. Lisinopril has been discontinued. The patient is currently on when necessary hydralazine #5. Hypothyroidism, currently on thyroid hormone replacement #6. Never smoker #7. IBS #8. Raynaud's #9 Plan: Stop fentanyl drip Dilaudid 0.5-1 mg every 3 hours on a when necessary basis for pain The patient is currently on a PEEP of 5 with an FiO2 of 40%. We'll give her daily trazodone pressure support of 10 and PEEP of 5 with an FiO2 of 40%. Switch the Decadron to oral 60 mg by mouth on a daily basis Lovenox 40 mg subcu daily basis Enteral feeding for the condition support and physical therapy for passive range of motion Consult select specialty for possible LTAC transfer. Critically care evaluation more than 30 minutes
[2020-09-19] MEDS ORDERED: DEXAMETHASONE SOD PHOSPHATE 10 MG/ML 1 ML VIAL IV SCH (09:00)
[2020-09-19 12:21] LABS: Glucose,Whole Blood 172 mg/dL (75-99)
[2020-09-19] MEDS: HYDROmorphone 0.5 MG/0.5 ML SYRINGE IVP PRN ×2 (14:46→20:32)
--- NOTE | 2020-09-19 15:31 | P.PN ---
Subjective Progress Note Date: 09/19/20 CHIEF COMPLAINT: Respiratory failure HISTORY OF PRESENT ILLNESS: The patient is a 65-year-old female status post tracheostomy and gastrostomy tube placement. She is currently on tube feeds. She is maintained on tracheostomy with tube feeds being managed by dietitian. ROS: Currently on full ventilatory support. No fevers or chills. PHYSICAL EXAM: VITAL SIGNS: Reviewed CONSTITUTIONAL: Well developed and in no acute distress. EYES: Conjuctivae without sclera icterus. Extraocular movements grossly intact. HEAD, EARS, NOSE, THROAT: Moist buccal mucosa. Head is atraumatic, normocephalic. Hears conversational speech. No nasal drainage. NECK: Trach present RESPIRATORY: Non-labored respirations and equal bilateral excursions. CARDIOVASCULAR: Palpable 2+ radial pulses. ABDOMEN: PEG tube present MUSCULOSKELETAL: No gross deformity of the lower extremities noted. No clubbing. No cyanosis. SKIN: Good skin turgor. Well perfused. NEUROLOGIC: Cranial nerves II through XII grossly intact. No focal or lateralizing signs. PSYCH: Appropriate affect. Alert and oriented to person, place and time. CLINICAL LABS: White blood cell count elevated over 12,000. Hemoglobin low at 9.7 ASSESSMENT: 1. Vent dependent respiratory failure 2. COVID-positive pneumonia 3. Inadequate protein nutrition 4. Tracheostomy status PLAN: 1. Adjust tube feeds to goal as tolerated. Objective - Vital Signs Vital signs: Vital Signs Temp 98.6 F 09/19/20 12:00 Pulse 84 09/19/20 15:00 Resp 20 09/19/20 15:00 BP 136/67 09/19/20 13:00 Pulse Ox 97 09/19/20 15:00 Intake & Output 09/18/20 09/19/20 09/19/20 18:59 06:59 18:59 Intake Total 518.077 872.271 684.436 Output Total 2305 790 1740 Balance -1786.923 82.271 -1055.564 Weight 79 kg 76.1 kg Intake: IV 156 266 207 Sodium Chloride 0.9% 1, 120 230 180 000 ml @ 20 mls/hr IV . Q24H [facility] Rx#:[id number] pressure bag 36 36 27 Intake, IV Titration 272.077 231.271 47.436 Amount fentaNYL (PF). 1,000 mcg 188.021 231.271 47.436 In Sodium Chloride 0.9% 80 ml @ Per Protocol IV . Q0M [facility] Rx#:[id number] propofoL 1,000 mg In 84.056 Empty Bag 1 bag @ Titrate IV .Q0M [facility] Rx#: [id number] Tube Feeding 60 240 320 Other 30 135 110 Output: Urine 2305 790 1740 Other: Voiding Method Indwelling Catheter Indwelling Catheter Indwelling Catheter ABP, PAP, CO, CI - Last Documented Arterial Blood Pressure 143/65 - Labs CBC & Chem 7: 09/24/20 04:45 09/24/20 04:45 Labs: Abnormal Lab Results - Last 24 Hours (Table) 09/19/20 09/19/20 09/19/20 Range/Units 00:00 04:00 04:00 WBC (3.8-10.6) k/uL RBC (3.80-5.40) m/uL Hgb (11.4-16.0) gm/dL Hct (34.0-46.0) % Neutrophils # (1.3-7.7) k/uL Monocytes # (0-1.0) k/uL D-Dimer 3.21 H (<0.60) mg/L FEU ABG HCO3 (21-25) mmol/L ABG Total CO2 (19-24) mmol/L ABG O2 Saturation (94-97) % Sodium 134 L (137-145) mmol/L BUN 24 H (7-17) mg/dL Creatinine 0.50 L (0.52-1.04) mg/dL POC Glucose (mg/dL) 105 H (75-99) mg/dL Calcium 8.3 L (8.4-10.2) mg/dL ALT 48 H (4-34) U/L Lactate Dehydrogenase 1055 H (313-618) U/L C-Reactive Protein 1.9 H (<1.0) mg/dL Total Protein 4.8 L (6.3-8.2) g/dL Albumin 2.6 L (3.5-5.0) g/dL 09/19/20 09/19/20 09/19/20 Range/Units 04:00 05:15 12:19 WBC 12.3 H (3.8-10.6) k/uL RBC 3.39 L (3.80-5.40) m/uL Hgb 9.7 L (11.4-16.0) gm/dL Hct 30.1 L (34.0-46.0) % Neutrophils # 9.5 H (1.3-7.7) k/uL Monocytes # 1.2 H (0-1.0) k/uL D-Dimer (<0.60) mg/L FEU ABG HCO3 28 H (21-25) mmol/L ABG Total CO2 29 H (19-24) mmol/L ABG O2 Saturation 97.2 H (94-97) % Sodium (137-145) mmol/L BUN (7-17) mg/dL Creatinine (0.52-1.04) mg/dL POC Glucose (mg/dL) 172 H (75-99) mg/dL Calcium (8.4-10.2) mg/dL ALT (4-34) U/L Lactate Dehydrogenase (313-618) U/L C-Reactive Protein (<1.0) mg/dL Total Protein (6.3-8.2) g/dL Albumin (3.5-5.0) g/dL Assessment and Plan (1) Tracheostomy present Status: Acute Code(s): Z93.0 - TRACHEOSTOMY STATUS SNOMED Code(s): 070810633 (2) Gastrostomy tube in place Status: Acute Code(s): Z93.1 - GASTROSTOMY STATUS SNOMED Code(s): 025430220 (3) COVID-19 Status: Acute Code(s): U07.1 - COVID-19 SNOMED Code(s): 745354217 (4) Edema of the tongue Status: Acute Code(s): K14.8 - OTHER DISEASES OF TONGUE SNOMED Code(s): 75609299 (5) Respiratory failure Status: Acute Code(s): J96.90 - RESPIRATORY FAILURE, UNSP, UNSP W HYPOXIA OR HYPERCAPNIA SNOMED Code(s): 099330916
[2020-09-19 17:24] LABS: Glucose,Whole Blood 115 mg/dL (75-99)
[2020-09-19] MEDS: ATORVASTATIN 20 MG TAB PO SCH (20:03)
[2020-09-19] MEDS: MONTELUKAST 10 MG TAB PO SCH (20:03)
[2020-09-19] MEDS: MELATONIN 5 MG TABLET PO SCH (20:03)
[2020-09-19] MEDS: ASPIRIN 81 MG PO SCH (20:03)
[2020-09-19] MEDS: MULTIVITAMINS, THERA 1 EACH TAB PO SCH (20:03)
[2020-09-19] MEDS: LORATADINE 10 MG TAB PO SCH (20:03)
[2020-09-19] MEDS: SODIUM CHLORIDE 0.9% 1,000 ML IV SCH (20:04)
[2020-09-19] MEDS: LEVOTHYROXINE 75 MCG TAB PO SCH (20:12)
[2020-09-19] MEDS: ACETAMINOPHEN TAB 325 MG TAB PO PRN (22:21)
--- NOTE | 2020-09-20 00:27 | P.PN ---
Progress Note - Text Progress Note Date: 09/19/20 Chief Complaint: Difficulty breathing/COVID positive History of presenting complaint 65-year-old female , whose PCP is Dr. Haq, states she's been exposed to Covid 19 from both her son and daughter who states she's had symptoms similar today for last 8 days which include nausea vomiting recently diarrhea rhinorrhea no overt shortness of breath she does have a cough also a fever and generalized weakness. decreased oral intake. She is here just because she is profoundly weak at this time. Not able to keep fluids down. Admitted with COVID 19 pneumonia. Acute hypoxic respiratory failure. Patient was given convalescent plasma. Dexamethasone, September 07: into respiratory distress. intubated. Given ACTEMRA. Convalescent plasma. , September 17: PEG tube and tracheostomy tube done Today: ICU: Ventilator: . Has a PEG tube and tracheostomy. Tongue swelling is gone on. Following simple commands. 2 feeding started. Review of systems: Unable to obtain Active Medications Acetaminophen (Acetaminophen Tab 325 Mg Tab) 650 mg PO Q6HR PRN PRN Reason: Mild Pain or Fever > 100.5 Last Admin: 09/19/20 22:21 Dose: 650 mg Documented by: Albuterol Sulfate (Albuterol Hfa Inhaler) 2 puff INHALATION RT-QID PRN PRN Reason: Shortness Of Breath Or Wheezing Albuterol Sulfate (Albuterol Hfa Inhaler) 4 puff INHALATION RT-QID [facility] Last Admin: 09/19/20 19:12 Dose: 4 puff Documented by: Amlodipine Besylate (Amlodipine 5 Mg Tab) 5 mg PO BID [facility] Last Admin: 09/19/20 20:03 Dose: 5 mg Documented by: Ascorbic Acid (Ascorbic Acid 500 Mg Tab) 1,000 mg PO DAILY [facility] Last Admin: 09/19/20 08:04 Dose: 1,000 mg Documented by: Aspirin (Aspirin 81 Mg) 81 mg PO [facility] Last Admin: 09/19/20 20:03 Dose: 81 mg Documented by: Atorvastatin Calcium (Atorvastatin 20 Mg Tab) 20 mg PO [facility] Last Admin: 09/19/20 20:03 Dose: 20 mg Documented by: Chlorhexidine Gluconate (Chlorhexidine Gluconate 15 Ml Cup) 15 ml MUCOUS MEM BID [facility] Last Admin: 09/19/20 20:03 Dose: 15 ml Documented by: Cholecalciferol (Cholecalciferol 25 Mcg (1000 Iu) Tablet) 125 mcg PO DAILY [facility] Last Admin: 09/19/20 08:05 Dose: 125 mcg Documented by: Citalopram Hydrobromide (Citalopram Hydrobromide 20 Mg Tab) 40 mg PO DAILY [facility] Last Admin: 09/19/20 08:05 Dose: 40 mg Documented by: Dexamethasone (Dexamethasone 4 Mg Tab) 4 mg PO DAILY [facility] Enoxaparin Sodium (Enoxaparin 40 Mg/0.4 Ml Syringe) 40 mg SQ DAILY [facility] Last Admin: 09/19/20 08:04 Dose: 40 mg Documented by: Furosemide (Furosemide 10 Mg/Ml 4 Ml Vial) 40 mg IV DAILY [facility] Last Admin: 09/19/20 08:04 Dose: 40 mg Documented by: Hydralazine HCl (Hydralazine Hcl 50 Mg Tab) 100 mg PO TID [facility] Last Admin: 09/19/20 20:03 Dose: 100 mg Documented by: Hydromorphone HCl (Hydromorphone 0.5 Mg/0.5 Ml Syringe) 0.5 mg IVP Q3HR PRN PRN Reason: Pain Last Admin: 09/19/20 20:32 Dose: 0.5 mg Documented by: Sodium Chloride (Saline 0.9%) 1,000 mls @ 20 mls/hr IV .Q24H [facility] Last Admin: 09/19/20 20:04 Dose: 20 mls/hr Documented by: Insulin Aspart (Insulin Aspart (Novolog) 100 Unit/Ml Vial) 0 unit SQ Q6H [facility]; Protocol Last Admin: 09/19/20 17:49 Dose: Not Given Documented by: Lactulose (Lactulose 20 Gm/30 Ml Cup) 30 gm PO BID PRN PRN Reason: Constipation Levothyroxine Sodium (Levothyroxine 75 Mcg Tab) 75 mcg PO [id number] [facility] Last Admin: 09/18/20 06:12 Dose: 75 mcg Documented by: Levothyroxine Sodium (Levothyroxine 75 Mcg Tab) 37.5 mcg PO SA [facility] Last Admin: 09/19/20 20:12 Dose: 37.5 mcg Documented by: Loratadine (Loratadine 10 Mg Tab) 10 mg PO HS [facility] Last Admin: 09/19/20 20:03 Dose: 10 mg Documented by: Melatonin (Melatonin 5 Mg Tablet) 5 mg PO HS [facility] Last Admin: 09/19/20 20:03 Dose: 5 mg Documented by: Metoprolol Tartrate (Metoprolol Tartrate 50 Mg Tab) 100 mg PO DAILY [facility] Last Admin: 09/19/20 08:05 Dose: 100 mg Documented by: Miscellaneous Information (Potassium Replacement Protocol 1 Each Misc) 1 each MISCELLANE DAILY PRN; Protocol PRN Reason: Per Protocol Miscellaneous Information (Potassium Replacement Protocol 1 Each Misc) 1 each MISCELLANE DAILY PRN; Protocol PRN Reason: Per Protocol Montelukast Sodium (Montelukast 10 Mg Tab) 10 mg PO HS [facility] Last Admin: 09/19/20 20:03 Dose: 10 mg Documented by: Multivitamins (Multivitamins, Thera 1 Each Tab) 1 each PO HS [facility] Last Admin: 09/19/20 20:03 Dose: 1 each Documented by: Naloxone HCl (Naloxone 0.4 Mg/Ml 1 Ml Vial) 0.2 mg IV Q2M PRN PRN Reason: Opioid Reversal Pantoprazole Sodium (Pantoprazole 40 Mg/10 Ml Vial) 40 mg IVP BID [facility] Last Admin: 09/19/20 20:07 Dose: 40 mg Documented by: Zinc Sulfate (Zinc Sulfate 220 Mg Cap) 220 mg PO DAILY [facility] Last Admin: 09/19/20 08:04 Dose: 220 mg Documented by: On examination: VITAL SIGNS: 84, 20, 1 36 x 6-7, 97% on the ventilator/40% NECK: Tracheostomy tube GENERAL APPEARANCE: laying in bed, awake, tired HEENT: Endotracheal tube PSYCHIATRY: Unable to assess Rest of exam as per pulmonary nursing INVESTIGATIONS, reviewed in the clinical context: September 19: WBC 12.3 hemoglobin 9.7 d-dimer 3.2 potassium 3.9 creatinine 0.5 LDH 1055 CRP 1.9 September 18: WBC 11.6 hemoglobin 8.8 platelets 175 d-dimer 1.83 potassium 4.2 creatinine 0.59 LDH 180 September 17: WBC 16 hemoglobin 9.7 platelets 214 potassium 3.7 creatinine 0.59 September 16: WBC 10.6 hemoglobin 10.4 platelets 279 d-dimer 5.62 potassium 3.7 creatinine 0.5 to September 15: D-dimer 6.75 CRP 7.1 September 14: WBC 12.9 hemoglobin 9.6 potassium 4 creatinine 0.62 Sirena 6: WBC 5.4 hemoglobin 8.8 platelets 237 d-dimer 1.67. Potassium 3.3 creatinine 0.53 CRP 216 September 07: WBC 5.7 hemoglobin 9.2 platelets 250 potassium 3.8 creatinine 0.73 troponin I 0.084 albumin 2.6 Chest x-ray film personally reviewed by me-[September 07: Bilateral infiltrates, confluent more so in the lower zones and metolazone EKG tracing personally reviewed by me-normal sinus rhythm. Nonspecific changes CT Normal chest: Extensive bilateral infiltrates with adenopathy. No PE Blood cultures: Negative Admission labs: Troponin I less than 0.012 Assessment and plan Acute hypoxic respiratory-slow to respond - intubated on September 07. On the ventilator-01/11 Interstitial pneumonia secondary to COVID-19: Not improving -Receiving Lovenox, dexamethasone, vitamin C vitamin D, Pepcid, zinc. Received ACTEMRA and convalescent plasma Hypothyroidism; - levothyroxine 75 MCG daily Essential Hypertension; better controlled lisinopril to 20 mg twice a day, amlodipine to 5 mg twice a day Hyperlipidemia; -continue with home statin therapy Asthma; not in exacerbation; -continue singular 10 mg daily home inhaler therapy GERD: - Continue with PPI Irritable bowel syndrome: -Follow clinically Raynauds phenomenon. - Follow clinically Diabetes mellitus type 2; uncontrolled with hyperglycemia -hold metformin. Follow Accu-Cheks. Normocytic anemia. -Follow H&H Acute hypoalbuminemia: -Acute phase reactant Obesity BMI 31.4 -To follow outpatient for weight loss measures CODE STATUS; full code -PEG tube and tracheostomy to done on September 17. Remains in ICU. Critical.
[2020-09-20] MEDS: HYDROmorphone 0.5 MG/0.5 ML SYRINGE IVP PRN ×4 (00:40→22:06)
[2020-09-20 00:50] LABS: Glucose,Whole Blood 123 mg/dL (75-99)
[2020-09-20] MEDS: INSULIN ASPART (NovoLOG) 100 UNIT/ML VIAL SQ SCH ×4 (01:44→18:03)
[2020-09-20 05:02] LABS: Basophils % (A) 0 %; Eosinophils % (A) 0 %; HCT 26.5 % (34.0-46.0); Lymphocytes # (A) 1.1 k/uL (1.0-4.8); Lymphocytes % (A) 13 %; MCH 29.7 pg (25.0-35.0); MCHC 34.1 g/dL (31.0-37.0); MCV 87.2 fL (80.0-100.0); Mean Platelet Volume 8.2; Monocytes # (A) 0.9 k/uL (0-1.0); Monocytes % (A) 10 %; Neutrophils # (A) 6.2 k/uL (1.3-7.7); Neutrophils % (A) 74 %; Platelet Count 206 k/uL (150-450); RBC 3.04 m/uL (3.80-5.40); RDW 14.3 % (11.5-15.5); WBC 8.3 k/uL (3.8-10.6)
[2020-09-20 05:36] LABS: ALT 44 U/L (4-34); AST 29 U/L (14-36); African American GFR (CKD) >90 (>60 ml/min/1.73 sqM); Albumin 2.5 g/dL (3.5-5.0); Alkaline Phosphatase 97 U/L (38-126); Anion Gap 1 mmol/L; Blood Urea Nitrogen 23 mg/dL (7-17); C Reactive Protein 1.6 mg/dL (<1.0); Carbon Dioxide 31 mmol/L (22-30); Chloride 100 mmol/L (98-107); Glucose 105 mg/dL (74-99); LDH 883 U/L (313-618); Non-African American GFR(CKD) >90 (>60 ml/min/1.73 sqM); Potassium 3.7 mmol/L (3.5-5.1); Sodium 132 mmol/L (137-145); Total Bilirubin 0.4 mg/dL (0.2-1.3); Total Protein 4.5 g/dL (6.3-8.2)
[2020-09-20 05:44] LABS: ABG HCO3 30 mmol/L (21-25); ABG Oxygen Saturation 98.6 % (94-97); ABG PCO2 40 mmHg (35-45); ABG PH 7.49 (7.35-7.45); ABG PO2 126 mmHg (83-108); ABG TCO2 32 mmol/L (19-24); Allen Test Performed? Yes
[2020-09-20 06:10] LABS: Glucose,Whole Blood 124 mg/dL (75-99)
--- NOTE | 2020-09-20 06:12 | XR ---
EXAMINATION TYPE: XR chest 1V portable DATE OF EXAM: 09/20/2020 CLINICAL HISTORY: Difficulty breathing progress study. TECHNIQUE: Single AP portable semiupright view of the chest is obtained. COMPARISON: Chest x-ray from one day earlier and older studies. FINDINGS: Stable tracheostomy tube. Stable left subclavian central venous catheter. Cardiac silhouette size is stable and upper limits of normal. Persistent multifocal increased opaciti es greatest in the left lung base. Osseous structures are intact. IMPRESSION: Bilateral multifocal opacities greatest in the left lung base redemonstrated consistent w ith covid-19 infection, no significant change from one day earlier.
[2020-09-20] MEDS ORDERED: POTASSIUM BICARBONATE/CIT AC 20 MEQ TABLET.EFF NG-TUBE SCH (07:00)
[2020-09-20] MEDS: ALBUTEROL HFA INHALER INHALATION SCH ×4 (08:20→19:23)
[2020-09-20] MEDS: ENOXAPARIN 40 MG/0.4 ML SYRINGE SQ SCH (08:28)
[2020-09-20] MEDS: FUROSEMIDE 10 MG/ML 4 ML VIAL IV SCH (08:28)
[2020-09-20] MEDS: PANTOPRAZOLE 40 MG/10 ML VIAL IVP SCH ×2 (08:28→21:50)
[2020-09-20] MEDS: CITALOPRAM HYDROBROMIDE 20 MG TAB PO SCH (08:28)
[2020-09-20] MEDS: ASCORBIC ACID 500 MG TAB PO SCH (08:28)
[2020-09-20] MEDS: CHLORHEXIDINE GLUCONATE 15 ML CUP MUCOUS MEM SCH ×2 (08:28→21:50)
[2020-09-20] MEDS: hydrALAZINE HCL 50 MG TAB PO SCH ×3 (08:28→21:51)
[2020-09-20] MEDS: amLODIPine 5 MG TAB PO SCH ×2 (08:28→21:51)
[2020-09-20] MEDS: CHOLECALCIFEROL 25 MCG (1000 IU) TABLET PO SCH (08:29)
[2020-09-20] MEDS: METOPROLOL TARTRATE 50 MG TAB PO SCH (08:29)
[2020-09-20] MEDS: ZINC SULFATE 220 MG CAP PO SCH (08:29)
--- NOTE | 2020-09-20 08:43 | P.PN ---
Subjective Progress Note Date: 09/20/20 On 09/14/2020 and seeing this patient for a follow-up as the patient is sara landaverde intubated on a mechanical ventilated with hypoxic respiratory failure due to COVID 19 related pneumonia and respiratory failure. The patient was intubated on 09/07/2020 and the patient has been treated with a convalescent plasma and received a dose of Actemra and the patient is currently on steroids. On today's evaluation, the patient remains sedated and the patient is currently on a combination of propofol 60 mics /kg per minute and the patient on fentanyl at 3 mcg/kg/h. The patient was also paralyzed and the paramedics was discontinued yesterday at around 10:00. Since then the patient has been off paralytics.. The patient remains on a mechanical ventilator on assist control mode at the rate of 28 with a tidal volume of 400 and FiO2 of 50% with a PEEP of 15. The patient blood gases is still pending from this morning.Chest x-ray showing diffuse bilateral pulmonary infiltrate, and the infiltrates are worse in the right lower lobe compared to the left although there is bilateral pulmonary infiltrates. The patient's subclavian triple-lumen catheter on the left and the patient has an ET tube that that being around 2 cm above the jason. and the patient remains on Lovenox 60 mg every 24 hours. The patient is receiving NovoLog insulin for size. Coverage blood sugar control. The patient is also utilizing clevidipine drip for blood pressure control at 2 mg an hour she is on Norvasc 5 mg by mouth twice a day. The patient is also on metoprolol 100 mg by mouth twice a day. The patient is on Zestril 20 mg by mouth twice a day for blood pressure control. The patient is on levothyroxine 75 g and 37.5 g orally on a daily basis. The patient is receiving enteral feeding for nutritional support. The most recent CRP level is at 9, the most recent LDH level was 1750. D-dimer was elevated at 8.2. Hypertension, hypothyroidism, IBS, hiatal hernia, and the patient initially presented to us on 09/05/2020 with gastrointestinal symptoms and shortness of breath. the morning labs show normal electrolytes, no other abnormalities are noted. The patient remains on IV Solu- Medrol 40 mg every 12 hours. Lovenox is a 60 mg every 12 hours and the patient d-dimer was 8.21. The peak airway pressures around 41. Static pressure is 33- 34. On 09/15/2020, the patient remains intubated on mechanical ventilator. The patient was intubated for Covid 19 related pneumonia. The patient was intubated on 09/07/2020. The patient currently is sedated with propofol which is running at 60 mcg/kg per minute and the fentanyl is also running at 3 mcg/kg/h. The patient is off paralytics for now. Meanwhile, the patient remains an assist- control mode of ventilation which is essentially the same as yesterday. The patient is on a tidal volume of 350 with an FiO2 of 50% and a PEEP of 13 and the rate of 28. The peak airway pressures around 37 anesthetic pressures 34. The patient continues to have a very enlarged and swollen tongue which is nonnecrotic at this point in time. The blood gases from this morning shows a pH of 7.49 with a pCO2 of 38 and a pO2 of 90. Chest x-ray still pending for now. The chest x-ray from yesterday was still showing diffuse bilateral pulmonary infiltrates. Meanwhile, the patient is still on clevidipine drip for blood pressure control. Her blood pressure remains quite elevated. She is running at 4 mg an hour and the patient is also on a combination of Norvasc a total of 10 mg by mouth daily, metoprolol 100 mg by mouth twice a day, Zestril 20 mg by mouth twice a day. She is still receiving Solu-Medrol 40 mg IV every 8 hours. Anticoagulation is with Lovenox 60 mg by subcu twice a day. On her blood work, she has a normal renal function with a BUN of 27 and creatinine of 0.5. Electrolytes are normal. White count of 12.7 with a hemoglobin of 9.8. The liver function tests are essentially within normal limits. Hemodynamically stable. No pressors for now. She is afebrile. Her net fluid balance is been +1.4 L over the past 24 hours. The patient is receiving enteral feeding for nutritional support. She is receiving vital high protein at the rate of 10 mL an hour. She is also receiving NovoLog insulin for sliding scale coverage. 09/16/2020, patient is being seen for a follow-up. The patient remains sedated with propofol at 50 mcg/kg per minute and fentanyl is running at 2.5 mcg/kg/h. No paralytics are being utilized. She remains on a mechanical ventilator. She is still with Covid 19 related pneumonia and she is intubated as such on 09/07/2020. She is on assist control mode at the rate of 28 with a tidal volume of 350 and FiO2 of 50% with a PEEP of 8. We were able to wean the PEEP considerably since yesterday. Her current peak airway pressure is 31. The follow-up blood gases from today showing a pH of 7.52 with a pCO2 of 35 and a pO2 of 61. The chest x-ray from today is showing bilateral pulmonary infiltrates and there is improved aeration in the upper lobes. There is still infiltration of the mid and lower lobes bilaterally. ET tube is in good location. The patient continues to have extensive tongue swelling which is obviously protruding outside her mouth. No signs of any necrosis of the tongue. I stopped the DEV inhibitor. She remains on steroids and the patient is receiving Solu Medrol 40 mg every 8 hours. She remains on Lovenox 60 mg of cutaneous every 12 hours. In terms of her blood work, the patient has a hemoglobin of 10.4 with a white cell count of 18.6, and platelet count is at 279, her d-dimer is at 5.62 which is lower compared to yesterday, the rest of the inflammatory markers are showing a CRP level of 6.9 which is also lower compared to yesterday. LFTs are normal. Creatinine 0.5 which is also normal. He was dynamically stable. She is on no pressors. Fluid balance is -3.8 L over the past 24 hours as the patient was being diuresed with Lasix. She received 40 mg of Lasix every 12 hours and this is obviously helped her with her fluid balance. She is gently sedated for now. She is arousable. Moves around. No agitation. She is quite successfully mechanical ventilator. During feeding is with vital high protein at the rate of 10 mL an hour. Orthostasis thousand and 21, the patient is awaiting PEG and trach. She is currently sedated with propofol running at 50 mcg/kg per minute and the fentanyl is running at 2.5 mcg/kg/h. The patient is on no paralytics. She is arousable and she is following some simple orders and commands even while being on sedation. She is gradually noted to be more aroused. As mentioned earlier she, she is a case of a Covid 19 related pneumonia with secondary respiratory failure and the patient has been on mechanical ventilator since 09/07/2020. She remains on assist control mode at the rate of 28 with a tidal volume of 350 and FiO2 of 50% with a PEEP of 8. The chest x-ray from today is showing infiltration in the mid and lower lung eli bilaterally. Most of the infiltration is in the perihilar area.. X-ray is looking slightly improved compared to yesterday and ET tube remains in a good location, The blood gases from today is showing a pH of 7.57 with a pCO2 of 33 and pO2 of 88. I'm suggesting a drop in her respiratory rate based on the fact that the patient has developed some respirato ry alkalosis. The peak and static pressures are 29 and 22 respectively. I dropped a respiratory rate down to 18 and the flow down to 60. On a separate note, the patient continues to have a very swollen and large tongue which is sticking out of her mouth. I'm not exactly sure what's causing this problem. ET tube may be causing some pressure on her tongue. In any rate, the ET tube was removed and the patient will be having a tracheostomy tube inserted today.. The patient remains on Decadron. The patient is currently on Decadron at a dose of 6 mg IV every 12 hours. The patient is also on Lovenox 60 mg every 12 hours and this is held this morning for surgery. The patient has a d-dimer of 2.87 and the rest of the inflammatory markers are still pending for now. She is hemodynamically stable. Fluid balance is in order of -1.6 L. The patient is getting Lasix 40 mg IV every 12 hours pages also on vital high protein at the rate of 10 mL an hour and currently the enteral feeding is on hold awaiting surgery. On today's evaluation of 09/18/2020, the patient is post PEG tube insertion and tracheostomy tube insertion. As noted earlier, the patient had a massively enlarged and swollen and protruding the tongue and on today's evaluation the tongue seems to be smaller and more retracted as the orotracheal tube has been taken out and the patient was given a tracheostomy. Currently she is a trach tube which is a Shiley #8. She is calm and comfortable. She is on a combination of propofol and fentanyl. We're the process of weaning the sedation. She is arousable. She is following commands. She is currently running at propofol at 40 mcg/kg per minute and fentanyl is running at 2 mcg/kg/h. She stated that she was in pain and essentially intended to drop the propofol and keep the fentanyl for now. She is quite successfully mechanical ventilator. She is currently on assist control mode with a rate of 18 and tidal volume of 350and FiO2 of 40% with a PEEP of 8. The blood gases from today showing a pH of 7.45 with a pCO2 43 and pO2 of 154. The patient is also having a follow-up chest x-ray that showed adequate positioning of the orotracheal tube. There is some limited infiltration of the lung bases bilaterally. There is also a left subclavian triple-lumen catheter. Otherwise, the patient is doing well. She is arousable. She is following some simple commands. The peak airway pressure on the mechanical ventilator is 24. She remains on Decadron 6 mg IV every 12 hours and the patient is also on Lovenox at a dose of 40 mg every 24 hours. On her blood work, the patient has a d-dimer of 1.83, the patient's LDH level is 1080 and a CRP level was not obtained on today's evaluation. As such, COVID-19 pneumonia is table and the patient is post tracheostomy tube insertion for the need of a prolonged ventilatory support. As far as enteral feeding, the patient was receiving vital high protein is be restarted within 24 hours a PEG tube insertion. PEG tube exit site is dry clean and intact at this point in time. No fever. Hemodynamically stable. No pressors. ENT was consulted regarding the tongue swelling. We are the process of weaning this patient of sedation. Protest on Levaquin for a few days ago was 0.05. 09/19/2020, the patient is off sedation with propofol and she is on requiring fentanyl at 1.5 mcg/kg per hour and this is only for pain control. she is awake and following commands and answering questions. She is profoundly weak. She again with increasing her fingers and toes. She cannot raise it against gravity. She can move her head. She can blink. Her tongue swelling has improved considerably. She isPost tracheostomy tube insertion and the patient has a #[address]. On today's evaluation, the patient has a assist-control mode rate of 18, tidal volume is at 350, FiO2 is at 40% and a PEEP is currently at 5. The blood gases from today showed a pH of 7.44 with a pCO2 of 41 and pO2 of 107. The chest x-ray from today is showing adequate positioning of the tracheostomy tube. Limited bibasilar pulmonary infiltrates. Findings are essentially stable for now. In terms of inflammatory markers, the d-dimer is down to 3.1 and the LDH level is 1055 and a CRP level is 1.9. Rest of the blood work and electrodes are all within normal limits. She has a PEG tube for which she is getting enteral feeding and nutritional support. She is currently receiving vital high protein at the rate of 30 mL an hour. No abdominal distention. She has not had a bowel movement since 09/11/2020. Her pro-calcitonin level was low. She remains on Lovenox 40 mg subcu every 24 hours. She is also on Decadron 6 mg IV once a day. 09/20/2020, the patient is completely off sedation. She is awake. Extremely weak limited to prolonged hospitalization intubation mechanical ventilation. She is able to wiggle her toes pH is able to communicate. She follows instructions the she also response to commands. She is very much, comfortable. She is laying down comfortably in bed. She is still on a mechanical ventilator. She has a Shiley tracheostomy tube #8. She is currently on a tidal volume of 350 with an FiO2 of 40% and a PEEP of 5 and a rate of 18. Blood gases from today shows a pH of 7.49 with a pCO2 of 40 and pO2 of 126. Chest x-ray from today is showing no significant change. Note that the patient was given a spontanous breathing trial yesterday with a support of 10 and a PEEP of 5. She was able to tolerate it for a total of 30 minutes and that she gets tired and she was placed back on assist control volume cycle mechanical ventilator. There is clearing of the lower lobe pulmonary infiltrates and a tracheostomy tube is in a good location. She is receiving enteral feeding for nutritional support and she is currently on vital high protein at the rate of 46 mL an hour. On her blood work, the inflammatory markers show a decline in the LDH and CRP as noted from today with an LDH of 883 and a CRP of 1.6. Renal function stable. Hemoglobin is at 9.0. No other issues for now. Does have dropped feet bilaterally and the patient has medi boots. The patient has been in a negative fluid balance as the patient is receiving Lasix 40 mg IV every 24 hours. There is significant improvement edema in all 4 extremities. She is also on Decadron 4 mg oral dose as the patient has been in the hospital and was being on steroids for the past 2 weeks. Objective - Vital Signs Vital signs: Vital Signs Temp 99.1 F 09/20/20 04:00 Pulse 87 09/20/20 07:00 Resp 20 09/20/20 07:00 BP 136/67 09/19/20 13:00 Pulse Ox 99 09/20/20 07:00 Intake & Output 09/19/20 09/20/20 09/20/20 18:59 06:59 18:59 Intake Total 966.436 899 114 Output Total 2014 755 350 Balance -1048.564 144 -236 Weight 73.6 kg Intake: IV 299 253 23 Sodium Chloride 0.9% 1, 260 220 20 000 ml @ 20 mls/hr IV . Q24H [facility] Rx#:[id number] pressure bag 39 33 3 Intake, IV Titration 47.436 Amount fentaNYL (PF). 1,000 mcg 47.436 In Sodium Chloride 0.9% 80 ml @ Per Protocol IV . Q0M [facility] Rx#:[id number] Tube Feeding 480 506 46 Other 140 140 45 Output: Urine 2014 755 350 Other: Voiding Method Indwelling Catheter Indwelling Catheter ABP, PAP, CO, CI - Last Documented Arterial Blood Pressure 156/62 - Exam The patient is awake and alert and communicating. She has a tracheostomy tube in place. She is very calm and comfortable. No signs of tongue necrosis in the mid part of the tongue or the tip. She is able to move her tongue for now and there is further interval improvement in the size and the swelling of the tongue. Head exam was generally normal. There was no scleral icterus or corneal arcus. Mucous membranes were moist. Neck was supple and without jugular venous distension, thyromegaly, or carotid bruits. Carotids were easily palpable bilaterally. There was no adenopathy. Patient has a #[address] trache[address] tube [address]. Neck supple. Full range of motion. No adenopathy thyromegaly or neck vein distention. Cardiovascular examination reveals regular rhythm rate. S1-S2 normal. No S3 or S4. No discernible murmur noted. Lungs reveal bilateral coarse rhonchi, and by basilar crackles. Breath sounds equal bilaterally. There are no wheezes. Abdomen soft bowel sounds are heard. No masses or tenderness.The patient has a PEG tube in place and the PEG tube site is dry clean and intact and there is no evidence of any bleeds. Extremities are intact. No cyanosis clubbing or edema. Skin is without rash or lesion. Neurologic the patient awake and alert and communicating. She is moving all 4 extremities. She gently sedated for now. No focal neurological deficit at this point in time.The patient is arousable. There is significant motor weakness related to critical illness myopathy is also bilateral foot drop.. The patient is moving all 4 extremities. motor strength is 2-3/5 She is following commands. She has generalized global weakness. - Labs CBC & Chem 7: 09/20/20 04:33 09/20/20 04:33 Labs: Abnormal Lab Results - Last 24 Hours (Table) 09/19/20 09/19/20 09/20/20 Range/Units 12:19 17:13 00:49 RBC (3.80-5.40) m/uL Hgb (11.4-16.0) gm/dL Hct (34.0-46.0) % D-Dimer (<0.60) mg/L FEU ABG pH (7.35-7.45) ABG pO2 (83-108) mmHg ABG HCO3 (21-25) mmol/L ABG Total CO2 (19-24) mmol/L ABG O2 Saturation (94-97) % Sodium (137-145) mmol/L Carbon Dioxide (22-30) mmol/L BUN (7-17) mg/dL Creatinine (0.52-1.04) mg/dL Glucose (74-99) mg/dL POC Glucose (mg/dL) 172 H 115 H 123 H (75-99) mg/dL Calcium (8.4-10.2) mg/dL ALT (4-34) U/L Lactate Dehydrogenase (313-618) U/L C-Reactive Protein (<1.0) mg/dL Total Protein (6.3-8.2) g/dL Albumin (3.5-5.0) g/dL 09/20/20 09/20/20 09/20/20 Range/Units 04:33 04:33 04:33 RBC 3.04 L (3.80-5.40) m/uL Hgb 9.0 L (11.4-16.0) gm/dL Hct 26.5 L (34.0-46.0) % D-Dimer 3.54 H (<0.60) mg/L FEU ABG pH (7.35-7.45) ABG pO2 (83-108) mmHg ABG HCO3 (21-25) mmol/L ABG Total CO2 (19-24) mmol/L ABG O2 Saturation (94-97) % Sodium 132 L (137-145) mmol/L Carbon Dioxide 31 H (22-30) mmol/L BUN 23 H (7-17) mg/dL Creatinine 0.42 L (0.52-1.04) mg/dL Glucose 105 H (74-99) mg/dL POC Glucose (mg/dL) (75-99) mg/dL Calcium 8.0 L (8.4-10.2) mg/dL ALT 44 H (4-34) U/L Lactate Dehydrogenase 883 H (313-618) U/L C-Reactive Protein 1.6 H (<1.0) mg/dL Total Protein 4.5 L (6.3-8.2) g/dL Albumin 2.5 L (3.5-5.0) g/dL 09/20/20 09/20/20 Range/Units 05:40 06:08 RBC (3.80-5.40) m/uL Hgb (11.4-16.0) gm/dL Hct (34.0-46.0) % D-Dimer (<0.60) mg/L FEU ABG pH 7.49 H (7.35-7.45) ABG pO2 126 H (83-108) mmHg ABG HCO3 30 H (21-25) mmol/L ABG Total CO2 32 H (19-24) mmol/L ABG O2 Saturation 98.6 H (94-97) % Sodium (137-145) mmol/L Carbon Dioxide (22-30) mmol/L BUN (7-17) mg/dL Creatinine (0.52-1.04) mg/dL Glucose (74-99) mg/dL POC Glucose (mg/dL) 124 H (75-99) mg/dL Calcium (8.4-10.2) mg/dL ALT (4-34) U/L Lactate Dehydrogenase (313-618) U/L C-Reactive Protein (<1.0) mg/dL Total Protein (6.3-8.2) g/dL Albumin (3.5-5.0) g/dL Assessment and Plan Plan: #1. Acute hypoxic respiratory failure related to acute COVID 19 pneumonia, patient was admitted to the hospital on for possible transfer, transfer to the intensive care unit on 09/07/2020 and intubated on 09/07/2020, will receive a dose of Actemra 1, and, convalescent plasma 1 on 09/07/2020. The #8 Shiley and this was inserted on 09/17/2020. No complications. The patient is currently off sedation. The patient is currently on an assist-control mode of mechanical ventilation and she is going to be given trial of spontaneous breathing on a daily basis pH was able to tolerate 30 minutes yesterday. #2. elevated inflammatory markers including LDH. The LDH and D-dimer is down and the patient is only on prophylactic dose of Lovenox #3. swollen and extremely bulky and enlarged tongue, could be ALLERGIC, could be angioedema, consider possibility of anatomic obstruction and secondary swelling. The swelling is improved compared to yesterday and the patient has no orotracheal tube removed and the patient is a tracheostomy tube in place at the tongue swelling has pretty much subsided #4. Hypertension currently on Norvasc, Lopressor and hydralazine. #5. Hypothyroidism, currently on thyroid hormone replacement #6. Never smoker #7. IBS #8. Raynaud's #9 profound muscle weakness secondary to critical illness polyneuropathy and myopathy. Motor function remains extremely weak. Plan: No sedation Aggressive physical therapy and passive range of motion Dilaudid 0.5-1 mg every 3 hours on a when necessary basis for pain The patient is currently on a PEEP of 5 with an FiO2 of 40%. We'll give her daily trials of pressure support of 10 and PEEP of 5 with an FiO2 of 40%. Switch the Decadron to oral 4 mg by mouth on a daily basis Lovenox 40 mg subcu daily basis 6 for another 24 hours as the patient continues to have some swelling Enteral feeding for the condition support and physical therapy for passive range of motion Consult select specialty for possible LTAC transfer. Critically care evaluation more than 30 minutes Time with Patient: Greater than 30
[2020-09-20] MEDS: dexAMETHasone 4 MG TAB PO SCH (08:48)
[2020-09-20 11:49] LABS: Glucose,Whole Blood 171 mg/dL (75-99)
--- NOTE | 2020-09-20 16:20 | P.PN ---
Subjective Progress Note Date: 09/20/20 CHIEF COMPLAINT: Respiratory failure HISTORY OF PRESENT ILLNESS: The patient is a 65-year-old female status post tracheostomy and gastrostomy tube placement. She is tolerating tube feeds. No reports of fevers or chills. She is on ventilatory and undergoing sedation holidays. Overall global weakness noted. She is on tube feeds. No new events overnight ROS: Currently on full ventilatory support. No fevers or chills. PHYSICAL EXAM: VITAL SIGNS: Reviewed CONSTITUTIONAL: Well developed and in no acute distress. EYES: Conjuctivae without sclera icterus. Extraocular movements grossly intact. HEAD, EARS, NOSE, THROAT: Moist buccal mucosa. Head is atraumatic, normocephalic. Hears conversational speech. No nasal drainage. NECK: Trach present on mechanical vent RESPIRATORY: Non-labored respirations and equal bilateral excursions. On full ventilatory support. CARDIOVASCULAR: Palpable 2+ radial pulses. ABDOMEN: PEG tube present with tube feeds running. MUSCULOSKELETAL: No gross deformity of the lower extremities noted. No clubbing. No cyanosis. SKIN: Good skin turgor. Well perfused. NEUROLOGIC: Cranial nerves II through XII grossly intact. No focal or lateralizing signs. PSYCH: Appropriate affect. CLINICAL LABS: White blood cell count elevated over 12,000. Hemoglobin low at 9.7 ASSESSMENT: 1. Vent dependent respiratory failure 2. COVID-positive pneumonia 3. Inadequate protein nutrition 4. Tracheostomy status PLAN: 1. Tube feeds to goal per dietitian 2. Transfer to [facility] care facility when stable Objective - Vital Signs Vital signs: Vital Signs Temp 99.1 F 09/20/20 04:00 Pulse 81 09/20/20 13:00 Resp 20 09/20/20 13:00 BP 136/67 09/19/20 13:00 Pulse Ox 97 09/20/20 13:00 Intake & Output 09/19/20 09/20/20 09/20/20 18:59 06:59 18:59 Intake Total 966.436 899 519 Output Total [phone] Balance -1048.564 144 -9921 Weight 73.6 kg Intake: IV 299 253 138 Sodium Chloride 0.9% 1, 260 220 120 000 ml @ 20 mls/hr IV . Q24H [facility] Rx#:[id number] pressure bag 39 33 18 Intake, IV Titration 47.436 Amount fentaNYL (PF). 1,000 mcg 47.436 In Sodium Chloride 0.9% 80 ml @ Per Protocol IV . Q0M [facility] Rx#:[id number] Tube Feeding 480 506 276 Other 140 140 105 Output: Urine 2014 435 1590 Other: Voiding Method Indwelling Catheter Indwelling Catheter Indwelling Catheter ABP, PAP, CO, CI - Last Documented Arterial Blood Pressure 127/47 - Labs CBC & Chem 7: 09/24/20 04:45 09/24/20 04:45 Labs: Abnormal Lab Results - Last 24 Hours (Table) 09/19/20 09/20/20 09/20/20 Range/Units 17:13 00:49 04:33 RBC 3.04 L (3.80-5.40) m/uL Hgb 9.0 L (11.4-16.0) gm/dL Hct 26.5 L (34.0-46.0) % D-Dimer (<0.60) mg/L FEU ABG pH (7.35-7.45) ABG pO2 (83-108) mmHg ABG HCO3 (21-25) mmol/L ABG Total CO2 (19-24) mmol/L ABG O2 Saturation (94-97) % Sodium (137-145) mmol/L Carbon Dioxide (22-30) mmol/L BUN (7-17) mg/dL Creatinine (0.52-1.04) mg/dL Glucose (74-99) mg/dL POC Glucose (mg/dL) 115 H 123 H (75-99) mg/dL Calcium (8.4-10.2) mg/dL ALT (4-34) U/L Lactate Dehydrogenase (313-618) U/L C-Reactive Protein (<1.0) mg/dL Total Protein (6.3-8.2) g/dL Albumin (3.5-5.0) g/dL 09/20/20 09/20/20 09/20/20 Range/Units 04:33 04:33 05:40 RBC (3.80-5.40) m/uL Hgb (11.4-16.0) gm/dL Hct (34.0-46.0) % D-Dimer 3.54 H (<0.60) mg/L FEU ABG pH 7.49 H (7.35-7.45) ABG pO2 126 H (83-108) mmHg ABG HCO3 30 H (21-25) mmol/L ABG Total CO2 32 H (19-24) mmol/L ABG O2 Saturation 98.6 H (94-97) % Sodium 132 L (137-145) mmol/L Carbon Dioxide 31 H (22-30) mmol/L BUN 23 H (7-17) mg/dL Creatinine 0.42 L (0.52-1.04) mg/dL Glucose 105 H (74-99) mg/dL POC Glucose (mg/dL) (75-99) mg/dL Calcium 8.0 L (8.4-10.2) mg/dL ALT 44 H (4-34) U/L Lactate Dehydrogenase 883 H (313-618) U/L C-Reactive Protein 1.6 H (<1.0) mg/dL Total Protein 4.5 L (6.3-8.2) g/dL Albumin 2.5 L (3.5-5.0) g/dL 09/20/20 09/20/20 Range/Units 06:08 11:37 RBC (3.80-5.40) m/uL Hgb (11.4-16.0) gm/dL Hct (34.0-46.0) % D-Dimer (<0.60) mg/L FEU ABG pH (7.35-7.45) ABG pO2 (83-108) mmHg ABG HCO3 (21-25) mmol/L ABG Total CO2 (19-24) mmol/L ABG O2 Saturation (94-97) % Sodium (137-145) mmol/L Carbon Dioxide (22-30) mmol/L BUN (7-17) mg/dL Creatinine (0.52-1.04) mg/dL Glucose (74-99) mg/dL POC Glucose (mg/dL) 124 H 171 H (75-99) mg/dL Calcium (8.4-10.2) mg/dL ALT (4-34) U/L Lactate Dehydrogenase (313-618) U/L C-Reactive Protein (<1.0) mg/dL Total Protein (6.3-8.2) g/dL Albumin (3.5-5.0) g/dL Assessment and Plan (1) COVID-19 Status: Acute Code(s): U07.1 - COVID-19 SNOMED Code(s): 415107078 (2) Edema of the tongue Status: Acute Code(s): K14.8 - OTHER DISEASES OF TONGUE SNOMED Code(s): 09977769 (3) Gastrostomy tube in place Status: Acute Code(s): Z93.1 - GASTROSTOMY STATUS SNOMED Code(s): 030522680 (4) Respiratory failure Status: Acute Code(s): J96.90 - RESPIRATORY FAILURE, UNSP, UNSP W HYPOXIA OR HYPERCAPNIA SNOMED Code(s): 035569970 (5) Tracheostomy present Status: Acute Code(s): Z93.0 - TRACHEOSTOMY STATUS SNOMED Code(s): 470244753
[2020-09-20 18:07] LABS: Glucose,Whole Blood 130 mg/dL (75-99)
--- NOTE | 2020-09-20 20:13 | P.PN ---
Progress Note - Text Progress Note Date: 09/20/20 Chief Complaint: Difficulty breathing/COVID positive History of presenting complaint 65-year-old female , whose PCP is Dr. Haq, states she's been exposed to Covid 19 from both her son and daughter who states she's had symptoms similar today for last 8 days which include nausea vomiting recently diarrhea rhinorrhea no overt shortness of breath she does have a cough also a fever and generalized weakness. decreased oral intake. She is here just because she is profoundly weak at this time. Not able to keep fluids down. Admitted with COVID 19 pneumonia. Acute hypoxic respiratory failure. Patient was given convalescent plasma. Dexamethasone, September 07: into respiratory distress. intubated. Given ACTEMRA. Convalescent plasma. , September 17: PEG tube and tracheostomy tube done Today: ICU: Ventilator FiO2 40 and a PEEP of 5. Telemetry sinus rhythm. 2 fe eding at 46 mL an hour. Awake but lethargic. On face time with family. Review of systems: Unable to obtain Active Medications Acetaminophen (Acetaminophen Tab 325 Mg Tab) 650 mg PO Q6HR PRN PRN Reason: Mild Pain or Fever > 100.5 Last Admin: 09/19/20 22:21 Dose: 650 mg Documented by: Albuterol Sulfate (Albuterol Hfa Inhaler) 2 puff INHALATION RT-QID PRN PRN Reason: Shortness Of Breath Or Wheezing Albuterol Sulfate (Albuterol Hfa Inhaler) 4 puff INHALATION RT-QID [facility] Last Admin: 09/20/20 19:23 Dose: 4 puff Documented by: Amlodipine Besylate (Amlodipine 5 Mg Tab) 5 mg PO BID [facility] Last Admin: 09/20/20 08:28 Dose: 5 mg Documented by: Ascorbic Acid (Ascorbic Acid 500 Mg Tab) 1,000 mg PO DAILY [facility] Last Admin: 09/20/20 08:28 Dose: 1,000 mg Documented by: Aspirin (Aspirin 81 Mg) 81 mg PO [facility] Last Admin: 09/19/20 20:03 Dose: 81 mg Documented by: Atorvastatin Calcium (Atorvastatin 20 Mg Tab) 20 mg PO [facility] Last Admin: 09/19/20 20:03 Dose: 20 mg Documented by: Chlorhexidine Gluconate (Chlorhexidine Gluconate 15 Ml Cup) 15 ml MUCOUS MEM BID [facility] Last Admin: 09/20/20 08:28 Dose: 15 ml Documented by: Cholecalciferol (Cholecalciferol 25 Mcg (1000 Iu) Tablet) 125 mcg PO DAILY [facility] Last Admin: 09/20/20 08:29 Dose: 125 mcg Documented by: Citalopram Hydrobromide (Citalopram Hydrobromide 20 Mg Tab) 40 mg PO DAILY [facility] Last Admin: 09/20/20 08:28 Dose: 40 mg Documented by: Dexamethasone (Dexamethasone 4 Mg Tab) 4 mg PO DAILY [facility] Last Admin: 09/20/20 08:48 Dose: 4 mg Documented by: Enoxaparin Sodium (Enoxaparin 40 Mg/0.4 Ml Syringe) 40 mg SQ DAILY [facility] Last Admin: 09/20/20 08:28 Dose: 40 mg Documented by: Furosemide (Furosemide 10 Mg/Ml 4 Ml Vial) 40 mg IV DAILY [facility] Hydralazine HCl (Hydralazine Hcl 50 Mg Tab) 100 mg PO TID [facility] Last Admin: 09/20/20 17:52 Dose: 100 mg Documented by: Hydromorphone HCl (Hydromorphone 0.5 Mg/0.5 Ml Syringe) 0.5 mg IVP Q3HR PRN PRN Reason: Pain Last Admin: 09/20/20 17:53 Dose: 0.5 mg Documented by: Sodium Chloride (Saline 0.9%) 1,000 mls @ 20 mls/hr IV .Q24H [facility] Last Admin: 09/19/20 20:04 Dose: 20 mls/hr Documented by: Insulin Aspart (Insulin Aspart (Novolog) 100 Unit/Ml Vial) 0 unit SQ Q6H [facility]; Protocol Last Admin: 09/20/20 18:03 Dose: Not Given Documented by: Lactulose (Lactulose 20 Gm/30 Ml Cup) 30 gm PO BID PRN PRN Reason: Constipation Levothyroxine Sodium (Levothyroxine 75 Mcg Tab) 75 mcg PO [id number] [facility] Last Admin: 09/18/20 06:12 Dose: 75 mcg Documented by: Levothyroxine Sodium (Levothyroxine 75 Mcg Tab) 37.5 mcg PO SA [facility] Last Admin: 09/19/20 20:12 Dose: 37.5 mcg Documented by: Loratadine (Loratadine 10 Mg Tab) 10 mg PO HS [facility] Last Admin: 09/19/20 20:03 Dose: 10 mg Documented by: Melatonin (Melatonin 5 Mg Tablet) 5 mg PO HS [facility] Last Admin: 09/19/20 20:03 Dose: 5 mg Documented by: Metoprolol Tartrate (Metoprolol Tartrate 50 Mg Tab) 100 mg PO DAILY [facility] Last Admin: 09/20/20 08:29 Dose: 100 mg Documented by: Miscellaneous Information (Potassium Replacement Protocol 1 Each Misc) 1 each MISCELLANE DAILY PRN; Protocol PRN Reason: Per Protocol Miscellaneous Information (Potassium Replacement Protocol 1 Each Misc) 1 each MISCELLANE DAILY PRN; Protocol PRN Reason: Per Protocol Montelukast Sodium (Montelukast 10 Mg Tab) 10 mg PO HS [facility] Last Admin: 09/19/20 20:03 Dose: 10 mg Documented by: Multivitamins (Multivitamins, Thera 1 Each Tab) 1 each PO HS [facility] Last Admin: 09/19/20 20:03 Dose: 1 each Documented by: Naloxone HCl (Naloxone 0.4 Mg/Ml 1 Ml Vial) 0.2 mg IV Q2M PRN PRN Reason: Opioid Reversal Pantoprazole Sodium (Pantoprazole 40 Mg/10 Ml Vial) 40 mg IVP BID [facility] Last Admin: 09/20/20 08:28 Dose: 40 mg Documented by: Zinc Sulfate (Zinc Sulfate 220 Mg Cap) 220 mg PO DAILY [facility] Last Admin: 09/20/20 08:29 Dose: 220 mg Documented by: On examination: VITAL SIGNS: 99.3, 88, 30, 135 and 52, 98% on the ventilator NECK: Tracheostomy tube GENERAL APPEARANCE: laying in bed, awake, tired HEENT: Endotracheal tube PSYCHIATRY: Unable to assess NEURO: Weakness of the limbs. Following simple commands. Rest of exam as per pulmonary nursing INVESTIGATIONS, reviewed in the clinical context: September 20: WBC 8.3 hemoglobin 9 platelets 206 d-dimer 3.5 for potassium 3.7 creatinine 0.4 to CRP 1.6 LDH 883 September 19: WBC 12.3 hemoglobin 9.7 d-dimer 3.2 potassium 3.9 creatinine 0.5 LDH 1055 CRP 1.9 September 18: WBC 11.6 hemoglobin 8.8 platelets 175 d-dimer 1.83 potassium 4.2 creatinine 0.59 LDH 180 September 17: WBC 16 hemoglobin 9.7 platelets 214 potassium 3.7 creatinine 0.59 September 16: WBC 10.6 hemoglobin 10.4 platelets 279 d-dimer 5.62 potassium 3.7 creatinine 0.5 to September 15: D-dimer 6.75 CRP 7.1 September 14: WBC 12.9 hemoglobin 9.6 potassium 4 creatinine 0.62 September 08: WBC 5.4 hemoglobin 8.8 platelets 237 d-dimer 1.67. Potassium 3.3 creatinine 0.53 CRP 216 September 07: WBC 5.7 hemoglobin 9.2 platelets 250 potassium 3.8 creatinine 0.73 troponin I 0.084 albumin 2.6 Chest x-ray film personally reviewed by me-[September 07: Bilateral infiltrates, confluent more so in the lower zones and metolazone EKG tracing personally reviewed by me-normal sinus rhythm. Nonspecific changes CT [place] chest: Extensive bilateral infiltrates with adenopathy. No PE Blood cultures: Negative Admission labs: Troponin I less than 0.012 Assessment and plan Acute hypoxic respiratory-slow to respond - intubated on September 07. On the ventilator-01/11. Interstitial pneumonia secondary to COVID-19: Slow to respond -Receiving Lovenox, dexamethasone, vitamin C vitamin D, Pepcid, zinc. Received ACTEMRA and convalescent plasma Hypothyroidism; - levothyroxine 75 MCG daily Essential Hypertension; better controlled lisinopril to 20 mg twice a day, amlodipine to 5 mg twice a day Hyperlipidemia; -continue with home statin therapy Asthma; not in exacerbation; -continue singular 10 mg daily home inhaler therapy GERD: - Continue with PPI Irritable bowel syndrome: -Follow clinically Raynauds phenomenon. - Follow clinically Diabetes mellitus type 2; uncontrolled with hyperglycemia -hold metformin. Follow Accu-Cheks. Normocytic anemia. -Follow H&H Acute hypoalbuminemia: -Acute phase reactant Obesity BMI 31.4 -To follow outpatient for weight loss measures CODE STATUS; full code -PEG tube and tracheostomy-September 17. 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 Continue current medications..
[2020-09-20] MEDS: ASPIRIN 81 MG PO SCH (21:50)
[2020-09-20] MEDS: MONTELUKAST 10 MG TAB PO SCH (21:50)
[2020-09-20] MEDS: MULTIVITAMINS, THERA 1 EACH TAB PO SCH (21:50)
[2020-09-20] MEDS: LORATADINE 10 MG TAB PO SCH (21:51)
[2020-09-20] MEDS: MELATONIN 5 MG TABLET PO SCH (21:51)
[2020-09-20] MEDS: ATORVASTATIN 20 MG TAB PO SCH (21:51)
[2020-09-20] MEDS: SODIUM CHLORIDE 0.9% 1,000 ML IV SCH (21:51)
[2020-09-21 00:07] LABS: Glucose,Whole Blood 127 mg/dL (75-99)
[2020-09-21] MEDS: INSULIN ASPART (NovoLOG) 100 UNIT/ML VIAL SQ SCH ×4 (00:09→18:36)
[2020-09-21] MEDS: HYDROmorphone 0.5 MG/0.5 ML SYRINGE IVP PRN ×5 (02:07→21:29)
[2020-09-21 05:35] LABS: Glucose,Whole Blood 131 mg/dL (75-99)
[2020-09-21 05:43] LABS: Basophils % (A) 0 %; Eosinophils % (A) 0 %; HCT 26.1 % (34.0-46.0); HGB 8.9 gm/dL (11.4-16.0); Lymphocytes % (A) 11 %; MCH 29.8 pg (25.0-35.0); MCHC 34.1 g/dL (31.0-37.0); MCV 87.5 fL (80.0-100.0); Mean Platelet Volume 8.3; Monocytes % (A) 11 %; Neutrophils # (A) 6.4 k/uL (1.3-7.7); Neutrophils % (A) 75 %; Platelet Count 212 k/uL (150-450); RBC 2.98 m/uL (3.80-5.40); RDW 14.4 % (11.5-15.5); WBC 8.5 k/uL (3.8-10.6)
[2020-09-21 05:52] LABS: ABG Base Excess 7.5 mmol/L; ABG HCO3 31 mmol/L (21-25); ABG PCO2 41 mmHg (35-45); ABG PH 7.49 (7.35-7.45); ABG PO2 118 mmHg (83-108); ABG TCO2 32 mmol/L (19-24); Allen Test Performed? Yes
[2020-09-21 06:12] LABS: African American GFR (CKD) >90 (>60 ml/min/1.73 sqM); Anion Gap 0 mmol/L; Blood Urea Nitrogen 21 mg/dL (7-17); Calcium 8.1 mg/dL (8.4-10.2); Carbon Dioxide 31 mmol/L (22-30); Chloride 102 mmol/L (98-107); Glucose 122 mg/dL (74-99); LDH 793 U/L (313-618); Non-African American GFR(CKD) >90 (>60 ml/min/1.73 sqM); Potassium 3.5 mmol/L (3.5-5.1); Sodium 133 mmol/L (137-145)
[2020-09-21] MEDS ORDERED: Potassium Replacement Protocol 1 EACH MISC MISCELLANE PRN ×2 (06:25→07:01)
[2020-09-21] MEDS ORDERED: POTASSIUM CHLORIDE ER 20 MEQ TAB.ER PO SCH (07:00)
[2020-09-21] MEDS: POTASSIUM BICARBONATE/CIT AC 20 MEQ TABLET.EFF NG-TUBE SCH ×3 (07:05→08:14)
[2020-09-21] MEDS: LEVOTHYROXINE 75 MCG TAB PO SCH (07:06)
[2020-09-21] MEDS: ALBUTEROL HFA INHALER INHALATION SCH ×4 (07:23→19:51)
--- NOTE | 2020-09-21 07:57 | XR ---
EXAMINATION TYPE: XR chest 1V DATE OF EXAM: 09/21/2020 COMPARISON: 09/20/2020 HISTORY: 65 year-old female shortness of breath TECHNIQUE: Single frontal view of the chest is obtained. FINDINGS: Tracheostomy cannula. Left subclavian CVC tip in the right atrium. Heart normal size. Interstitial op acity bilaterally are similar. No pleural effusion. IMPRESSION: Similar bilateral mild interstitial opacities.
[2020-09-21] MEDS: PANTOPRAZOLE 40 MG/10 ML VIAL IVP SCH ×2 (08:13→20:31)
[2020-09-21] MEDS: ENOXAPARIN 40 MG/0.4 ML SYRINGE SQ SCH (08:14)
[2020-09-21] MEDS: CITALOPRAM HYDROBROMIDE 20 MG TAB PO SCH (08:14)
[2020-09-21] MEDS: hydrALAZINE HCL 50 MG TAB PO SCH ×3 (08:14→20:31)
[2020-09-21] MEDS: METOPROLOL TARTRATE 50 MG TAB PO SCH (08:14)
[2020-09-21] MEDS: amLODIPine 5 MG TAB PO SCH ×2 (08:14→20:31)
[2020-09-21] MEDS: CHLORHEXIDINE GLUCONATE 15 ML CUP MUCOUS MEM SCH ×2 (08:14→20:31)
[2020-09-21] MEDS: CHOLECALCIFEROL 25 MCG (1000 IU) TABLET PO SCH (08:15)
[2020-09-21] MEDS: FUROSEMIDE 10 MG/ML 4 ML VIAL IV SCH (08:15)
[2020-09-21] MEDS: ZINC SULFATE 220 MG CAP PO SCH (08:15)
[2020-09-21] MEDS: ASCORBIC ACID 500 MG TAB PO SCH (08:15)
[2020-09-21] MEDS: dexAMETHasone 4 MG TAB PO SCH (08:15)
[2020-09-21] MEDS ORDERED: LIDOCAINE 1% INJ 10MG/ML (20 ML MDV) SQ ONE (10:38)
--- NOTE | 2020-09-21 10:55 | P.PN ---
<Kayce Morocho - Last Filed: 09/21/20 10:45> Subjective Progress Note Date: 09/21/20 CHIEF COMPLAINT: Respiratory failure HISTORY OF PRESENT ILLNESS: Patient is status post tracheostomy and PEG tube placement. She is tolerating tube feedings. Tube feeds are at goal. She is scheduled for PICC line placement today and possible transfer to LTAC today. She's currently on CPAP. Afebrile. WBC 8.5 PHYSICAL EXAM: VITAL SIGNS: Reviewed. GENERAL: Well-developed in no acute distress. HEENT: Trach site clean dry and intact ABDOMEN: Soft. Nondistended. Nontender. PEG tube site clean dry and intact NEUROLOGIC: Alert and oriented. Cranial nerves II through XII grossly intact. ASSESSMENT: 1. Acute hypoxic respiratory failure secondary to COVID-19 pneumonia. Status post tracheostomy placement 2. Severe protein calorie malnutrition status post PEG tube placement PLAN: -Continue ICU management -Continue supportive care -Continue tube feedings Physician Picker And Sorter Load And Unload note has been reviewed by physician. Signing provider agrees with the documented findings, assessment, and plan of care. Objective - Vital Signs Vital signs: Vital Signs Temp 99.1 F 09/21/20 08:00 Pulse 87 09/21/20 10:00 Resp 15 09/21/20 10:00 BP 136/67 09/21/20 10:00 Pulse Ox 96 09/21/20 10:00 Intake & Output 09/20/20 09/21/20 09/21/20 18:59 06:59 18:59 Intake Total 1032 895 412 Output Total 2265 715 1160 Balance -1233 180 -748 Weight 72.2 kg Intake: IV 299 253 92 Sodium Chloride 0.9% 1, 260 220 80 000 ml @ 20 mls/hr IV . Q24H [facility] Rx#:[id number] pressure bag 39 33 12 Tube Feeding 598 552 230 Other 135 90 90 Output: Urine 2265 715 1160 Other: Voiding Method Indwelling Catheter Indwelling Catheter Indwelling Catheter ABP, PAP, CO, CI - Last Documented Arterial Blood Pressure 112/50 - Labs CBC & Chem 7: 09/21/20 05:00 09/21/20 05:00 Labs: Abnormal Lab Results - Last 24 Hours (Table) 09/20/20 09/20/20 09/21/20 Range/Units 11:37 17:55 00:05 RBC (3.80-5.40) m/uL Hgb (11.4-16.0) gm/dL Hct (34.0-46.0) % ABG pH (7.35-7.45) ABG pO2 (83-108) mmHg ABG HCO3 (21-25) mmol/L ABG Total CO2 (19-24) mmol/L ABG O2 Saturation (94-97) % Sodium (137-145) mmol/L Carbon Dioxide (22-30) mmol/L BUN (7-17) mg/dL Creatinine (0.52-1.04) mg/dL Glucose (74-99) mg/dL POC Glucose (mg/dL) 171 H 130 H 127 H (75-99) mg/dL Calcium (8.4-10.2) mg/dL Lactate Dehydrogenase (313-618) U/L C-Reactive Protein (<1.0) mg/dL 09/21/20 09/21/20 09/21/20 Range/Units 05:00 05:00 05:34 RBC 2.98 L (3.80-5.40) m/uL Hgb 8.9 L (11.4-16.0) gm/dL Hct 26.1 L (34.0-46.0) % ABG pH (7.35-7.45) ABG pO2 (83-108) mmHg ABG HCO3 (21-25) mmol/L ABG Total CO2 (19-24) mmol/L ABG O2 Saturation (94-97) % Sodium 133 L (137-145) mmol/L Carbon Dioxide 31 H (22-30) mmol/L BUN 21 H (7-17) mg/dL Creatinine 0.42 L (0.52-1.04) mg/dL Glucose 122 H (74-99) mg/dL POC Glucose (mg/dL) 131 H (75-99) mg/dL Calcium 8.1 L (8.4-10.2) mg/dL Lactate Dehydrogenase 793 H (313-618) U/L C-Reactive Protein 1.0 H (<1.0) mg/dL 09/21/20 Range/Units 05:48 RBC (3.80-5.40) m/uL Hgb (11.4-16.0) gm/dL Hct (34.0-46.0) % ABG pH 7.49 H (7.35-7.45) ABG pO2 118 H (83-108) mmHg ABG HCO3 31 H (21-25) mmol/L ABG Total CO2 32 H (19-24) mmol/L ABG O2 Saturation 99.0 H (94-97) % Sodium (137-145) mmol/L Carbon Dioxide (22-30) mmol/L BUN (7-17) mg/dL Creatinine (0.52-1.04) mg/dL Glucose (74-99) mg/dL POC Glucose (mg/dL) (75-99) mg/dL Calcium (8.4-10.2) mg/dL Lactate Dehydrogenase (313-618) U/L C-Reactive Protein (<1.0) mg/dL <David Al - Last Filed: 09/21/20 15:04> Subjective As above. Patient tolerating tube feeds at goal. No issues with the tracheostomy. Has been weaning. She is afebrile with stable vital signs. Her white blood cell count is normal. On exam her abdomen has mild tenderness around the PEG tube site without erythema. The bolster was loosened 0.5-1 cm which I routinely do. After loosening and I did see some purulent fluid coming from around the PEG tube site. Will resume antibiotics in the form of Levaquin. CAT scan abdomen will be ordered prior to consideration for transfer. Objective - Vital Signs Vital signs: Vital Signs Temp 98.9 F 09/21/20 12:00 Pulse 95 09/21/20 14:00 Resp 16 09/21/20 14:00 BP 136/67 09/21/20 09:00 Pulse Ox 97 09/21/20 14:00 Intake & Output 09/20/20 09/21/20 09/21/20 18:59 06:59 18:59 Intake Total 1032 895 675 Output Total 2265 715 1959 Balance -1233 180 -1285 Weight 72.2 kg Intake: IV 299 253 141 Sodium Chloride 0.9% 1, 260 220 120 000 ml @ 20 mls/hr IV . Q24H [facility] Rx#:[id number] pressure bag 39 33 21 Tube Feeding 598 552 414 Other 135 90 120 Output: Urine 2265 715 1960 Other: Voiding Method Indwelling Catheter Indwelling Catheter Indwelling Catheter ABP, PAP, CO, CI - Last Documented Arterial Blood Pressure 135/59 - Labs CBC & Chem 7: 09/21/20 05:00 09/21/20 05:00 Labs: Abnormal Lab Results - Last 24 Hours (Table) 09/20/20 09/21/20 09/21/20 Range/Units 17:55 00:05 05:00 RBC (3.80-5.40) m/uL Hgb (11.4-16.0) gm/dL Hct (34.0-46.0) % ABG pH (7.35-7.45) ABG pO2 (83-108) mmHg ABG HCO3 (21-25) mmol/L ABG Total CO2 (19-24) mmol/L ABG O2 Saturation (94-97) % Sodium 133 L (137-145) mmol/L Carbon Dioxide 31 H (22-30) mmol/L BUN 21 H (7-17) mg/dL Creatinine 0.42 L (0.52-1.04) mg/dL Glucose 122 H (74-99) mg/dL POC Glucose (mg/dL) 130 H 127 H (75-99) mg/dL Calcium 8.1 L (8.4-10.2) mg/dL Lactate Dehydrogenase 793 H (313-618) U/L C-Reactive Protein 1.0 H (<1.0) mg/dL 09/21/20 09/21/20 09/21/20 Range/Units 05:00 05:34 05:48 RBC 2.98 L (3.80-5.40) m/uL Hgb 8.9 L (11.4-16.0) gm/dL Hct 26.1 L (34.0-46.0) % ABG pH 7.49 H (7.35-7.45) ABG pO2 118 H (83-108) mmHg ABG HCO3 31 H (21-25) mmol/L ABG Total CO2 32 H (19-24) mmol/L ABG O2 Saturation 99.0 H (94-97) % Sodium (137-145) mmol/L Carbon Dioxide (22-30) mmol/L BUN (7-17) mg/dL Creatinine (0.52-1.04) mg/dL Glucose (74-99) mg/dL POC Glucose (mg/dL) 131 H (75-99) mg/dL Calcium (8.4-10.2) mg/dL Lactate Dehydrogenase (313-618) U/L C-Reactive Protein (<1.0) mg/dL 09/21/20 Range/Units 12:01 RBC (3.80-5.40) m/uL Hgb (11.4-16.0) gm/dL Hct (34.0-46.0) % ABG pH (7.35-7.45) ABG pO2 (83-108) mmHg ABG HCO3 (21-25) mmol/L ABG Total CO2 (19-24) mmol/L ABG O2 Saturation (94-97) % Sodium (137-145) mmol/L Carbon Dioxide (22-30) mmol/L BUN (7-17) mg/dL Creatinine (0.52-1.04) mg/dL Glucose (74-99) mg/dL POC Glucose (mg/dL) 217 H (75-99) mg/dL Calcium (8.4-10.2) mg/dL Lactate Dehydrogenase (313-618) U/L C-Reactive Protein (<1.0) mg/dL Assessment and Plan (1) Respiratory failure Current Visit: Yes Status: Acute Code(s): J96.90 - RESPIRATORY FAILURE, UNSP , UNSP W HYPOXIA OR HYPERCAPNIA SNOMED Code(s): 153429658
--- NOTE | 2020-09-21 11:20 | CDI ---
Documentation Clarification Form Date: 09/21/2020 11:02:53 AM From: Tiffany Caldwell RN, CCDS Admit Date: 09/05/2020 09:59:00 PM Patient Name: Peri Ayala Visit Number: [id number] ATTENTION: The Clinical Documentation Specialists (CDI) and [facility] Coding Staff appreciate your assistance in clarifying documentation. Please respond to the clarification below the line at the bottom and electronically sign. The CDI & [facility] Coding staff will review the response and follow-up if needed. Please note: Queries are made part of the Legal Health Record. If you have any questions, please contact the author of this message via ITS. Dr. Juan Peace Malnutrition is documented 09/17 in the Op not as reason for PEG tube insertion and requires further specificity. Additional clarification regarding the severity of malnutrition is requested. History/Risk Factors: GERD, HTN, Hypothyroid, IBS, Hiatal hernia, Raynauds, DM2 with hyperglycemia, Obesity, Covid 19 pneumonia with acute hypoxic respiratory failure, ventilator dependent Clinical Indicators: 09/21 Current BMI: 32.1 Insufficient energy intake: Patient Maintained NPO, tune feeding initiated 09/07 Loss of subcutaneous fat: no documented pressure ulcers 09/20 Fluid accumulation: There is significant improvement edema in all 4 extremities. 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 Lab monitoring: Am daily 09/17 PEG tube inserted Please clarify the type of malnutrition, if known: [ ] Mild Protein-Calorie Malnutrition [ ] Moderate Protein-Calorie Malnutrition [ ] Severe Protein-Calorie Malnutrition [ ] Other condition, please specify [ ] Unable to Determine (Template Last Revised: August 2020) No protein calorie malnutrition MTDD
--- NOTE | 2020-09-21 11:32 | XR ---
EXAMINATION TYPE: XR chest 1V confirm line [facility] DATE OF EXAM: 09/21/2020 COMPARISON: Chest x-ray 09/21/2020 HISTORY: PICC line placement TECHNIQUE: Single frontal view of the chest is obtained. FINDINGS: There is been interval placement of right-sided PICC line, distal tip is overlying superio r vena cava. No significant change. IMPRESSION: No evident complication status post PICC line placement
--- NOTE | 2020-09-21 11:38 | P.PN ---
Subjective Progress Note Date: 09/21/20 Principal diagnosis: Nausea, vomiting, diarrhea, weakness 65-year-old white female patient of Dr. Haq with past medical history of hypertension, hypothyroidism, IBS, hiatal hernia, renal disorder, who presented to the emergency department on 09/05/2020 with symptoms of nausea, vomiting, diarrhea, she reported some cough, fever and generalized weakness, but no overt shortness of breath. Patient had exposure to COVID 19 from her son and daughter. Patient had decreased oral intake, she came in with profound generalized weakness and not being able to keep fluids down. Chest x-ray showed bilateral patchy airspace pneumonia, COVID 19 PCR was positive. Patient was lymphopenic with lymphocytic 0.9, white blood cell count is 3.5, hemoglobin is 12.5, d-dimer 0.61, troponin was less than 0.012, pro calcitonin level was 0.07. LDH was 1550, CRP is 130.8, ferritin level is 337.5. Presentation patient was severely hypoxic, with O2 saturations in the low 80s on 100% FiO2. Blood gas was obtained showing pO2 of 44, pCO2 of 36, pH of 7.46, patient was intubated and placed on mechanical ventilator. She is currently sedated and paralyzed, and on assist control mode of ventilation with a rate of 28, tacrolimus 400, FiO2 100%, and PEEP of 14. This morning blood gases showed pO2 of 50, pCO2 36, and pH of 7.44. Currently patient sedated and paralyzed on [facility] ventilator. 0.9 at 130 in the per hour, and Nimbex is at 2 mics per kilo per minute, Diprivan is a 50 mics per kilo per minute, and fentanyl drip is currently is 1 mcg/kg/m. Patient has been started on IV steroids 60 mg every 6 hours of Solu-Medrol, she is on Lovenox 40 mg daily. She'll be given a dose of convalescent plasma and she is awaiting a dose of Tocili. Follow-up chest x-ray today shows increased bilateral patchy opacities, and trace right pleural effusion. CTA chest was completed showing no evidence of pulmonary embolism. On 09/08/2020 patient seen in follow-up in the intensive care units. She remains sedated, intubated, currently on assist control with a rate of 20s, tidal volume is 450, FiO2 70%, and PEEP of 18, this morning blood gases show pO2 of 63, pCO2 33, pH is 7.38. Patient is currently on 0.9 at 130 and no per hour, Diprivan is a 35 mics per kilo per minute, fentanyl drip is at 1 adam per kilo per minute, and Nexium is at 1.45 mics per kilo per minute. She is noted to be hypothermic early this morning with a temp of 93.4F. White blood cell count is 5.4, hemoglobin is 8.8, facet, 0.8, d-dimer is 1.67, sodium is 139, potassium is 3.3, chloride is 114, CO2 is 19, BUN is 13, creatinine 0.53, CRP is 216, AST is 40, ALT is 19, alkaline phosphatase is 80, troponin was less than 0.012. LDH is pending today. Progesterone level was negative at 0.07, urinalysis showed no evidence of infection. Blood cultures were negative. She remains on Lovenox 40 mg twice daily, IV Solu-Medrol 60 g every 6 hours, she received 480 mg of Tocilizumab. Received 1 unit of convalescent plasma. She is receiving nutritional support in the form of vital HP at 20 with a goal of 29. Has been tolerating tube feedings, fluid boluses were given yesterday, she still continues on 0.9 NS at 130 ML per hour and her urine output is marginal, and patient will receive additional liter fluid bolus On 09/14/2020 and seeing this patient for a follow-up as the patient is currently intubated on a mechanical ventilated with hypoxic respiratory failure due to COVID 19 related pneumonia and respiratory failure. The patient was intubated on 09/07/2020 and the patient has been treated with a convalescent plasma and received a dose of Actemra and the patient is currently on steroids. On today's evaluation, the patient remains sedated and the patient is currently on a combination of propofol 60 mics /kg per minute and the patient on fentanyl at 3 mcg/kg/h. The patient was also paralyzed and the paramedics was discontinued yesterday at around 10:00. Since then the patient has been off paralytics.. The patient remains on a mechanical ventilator on assist control mode at the rate of 28 with a tidal volume of 400 and FiO2 of 50% with a PEEP of 15. The patient blood gases is still pending from this morning.Chest x-ray showing diffuse bilateral pulmonary infiltrate, and the infiltrates are worse in the right lower lobe compared to the left although there is bilateral pulmonary infiltrates. The patient's subclavian triple-lumen catheter on the left and the patient has an ET tube that that being around 2 cm above the jason. and the patient remains on Lovenox 60 mg every 24 hours. The patient is receiving NovoLog insulin for size. Coverage blood sugar control. The patient is also utilizing clevidipine drip for blood pressure control at 2 mg an hour she is on Norvasc 5 mg by mouth twice a day. The patient is also on metoprolol 100 mg by mouth twice a day. The patient is on Zestril 20 mg by mouth twice a day for blood pressure control. The patient is on levothyroxine 75 g and 37.5 g orally on a daily basis. The patient is receiving enteral feeding for nutritional support. The most recent CRP level is at 9, the most recent LDH level was 1750. D-dimer was elevated at 8.2. Hypertension, hypothyroidism, IBS, hiatal hernia, and the patient initially presented to us on 09/05/2020 with gastrointestinal symptoms and shortness of breath. the morning labs show normal electrolytes, no other abnormalities are noted. The patient remains on IV Solu-Medrol 40 mg every 12 hours. Lovenox is a 60 mg every 12 hours and the patient d-dimer was 8.21. The peak airway pressures around 41. Static pressure is 33-34. On 09/15/2020, the patient remains intubated on mechanical ventilator. The patient was intubated for Covid 19 related pneumonia. The patient was intubated on 09/07/2020. The patient currently is sedated with propofol which is running at 60 mcg/kg per minute and the fentanyl is also running at 3 mcg/kg/h. The patient is off paralytics for now. Meanwhile, the patient remains an assist- control mode of ventilation which is essentially the same as yesterday. The patient is on a tidal volume of 350 with an FiO2 of 50% and a PEEP of 13 and the rate of 28. The peak airway pressures around 37 anesthetic pressures 34. The patient continues to have a very enlarged and swollen tongue which is nonnecrotic at this point in time. The blood gases from this morning shows a pH of 7.49 with a pCO2 of 38 and a pO2 of 90. Chest x-ray still pending for now. The chest x-ray from yesterday was still showing diffuse bilateral pulmonary in filtrates. Meanwhile, the patient is still on clevidipine drip for blood pressure control. Her blood pressure remains quite elevated. She is running at 4 mg an hour and the patient is also on a combination of Norvasc a total of 10 mg by mouth daily, metoprolol 100 mg by mouth twice a day, Zestril 20 mg by mouth twice a day. She is still receiving Solu-Medrol 40 mg IV every 8 hours. Anticoagulation is with Lovenox 60 mg by subcu twice a day. On her blood work, she has a normal renal function with a BUN of 27 and creatinine of 0.5. Electrolytes are normal. White count of 12.7 with a hemoglobin of 9.8. The liver function tests are essentially within normal limits. Hemodynamically stab le. No pressors for now. She is afebrile. Her net fluid balance is been +1.4 L over the past 24 hours. The patient is receiving enteral feeding for nutritional support. She is receiving vital high protein at the rate of 10 mL an hour. She is also receiving NovoLog insulin for sliding scale coverage. 09/16/2020, patient is being seen for a follow-up. The patient remains sedated with propofol at 50 mcg/kg per minute and fentanyl is running at 2.5 mcg/kg/h. No paralytics are being utilized. She remains on a mechanical ventilator. She is still with Covid 19 related pneumonia and she is intubated as such on 09/07/2020. She is on assist control mode at the rate of 28 with a tidal volume of 350 and FiO2 of 50% with a PEEP of 8. We were able to wean the PEEP considerably since yesterday. Her current peak airway pressure is 31. The follow-up blood gases from today showing a pH of 7.52 with a pCO2 of 35 and a pO2 of 61. The chest x-ray from today is showing bilateral pulmonary in filtrates and there is improved aeration in the upper lobes. There is still infiltration of the mid and lower lobes bilaterally. ET tube is in good location. The patient continues to have extensive tongue swelling which is obviously protruding outside her mouth. No signs of any necrosis of the tongue. I stopped the DEV inhibitor. She remains on steroids and the patient is receiving Solu Medrol 40 mg every 8 hours. She remains on Lovenox 60 mg of cutaneous every 12 hours. In terms of her blood work, the patient has a hemoglobin of 10.4 with a white cell count of 18.6, and platelet count is at 279, her d-dimer is at 5.62 which is lower compared to yesterday, the rest of the inflammatory markers are showing a CRP level of 6.9 which is also lower compared to yesterday. LFTs are normal. Creatinine 0.5 which is also normal. He was dynamically stable. She is on no pressors. Fluid balance is -3.8 L over the past 24 hours as the patient was being diuresed with Lasix. She received 40 mg of Lasix every 12 hours and this is obviously helped her with her fluid balance. She is gently sedated for now. She is arousable. Moves around. No agitation. She is quite successfully mechanical ventilator. During feeding is with vital high protein at the rate of 10 mL an hour. Orthostasis thousand and 21, the patient is awaiting PEG and trach. She is currently sedated with propofol running at 50 mcg/kg per minute and the fentanyl is running at 2.5 mcg/kg/h. The patient is on no paralytics. She is arousable and she is following some simple orders and commands even while being on sedation. She is gradually noted to be more aroused. As mentioned earlier she, she is a case of a Covid 19 related pneumonia with secondary respiratory failure and the patient has been on mechanical ventilator since 09/07/2020. She remains on assist control mode at the rate of 28 with a tidal volume of 350 and FiO2 of 50% with a PEEP of 8. The chest x-ray from today is showing infiltration in the mid and lower lung eli bilaterally. Most of the infiltration is in the perihilar area.. X-ray is looking slightly improved compared to yesterday and ET tube remains in a good location, The blood gases from today is showing a pH of 7.57 with a pCO2 of 33 and pO2 of 88. I'm suggesting a drop in her respiratory rate based on the fact that the patient has developed some respiratory alkalosis. The peak and static pressures are 29 and 22 respectively. I dropped a respiratory rate down to 18 and the flow down to 60. On a separate note, the patient continues to have a very swollen and large tongue which is sticking out of her mouth. I'm not exactly sure what's causing this problem. ET tube may be causing some pressure on her tongue. In any rate, the ET tube was removed and the patient will be having a tracheostomy tube inserted today.. The patient remains on Decadron. The patient is currently on Decadron at a dose of 6 mg IV every 12 hours. The patient is also on Lovenox 60 mg every 12 hours and this is held this morning for surgery. The patient has a d-dimer of 2.87 and the rest of the inflammatory markers are still pending for now. She is hemodynamically stable. Fluid balance is in order of -1.6 L. The patient is getting Lasix 40 mg IV every 12 hours pages also on vital high protein at the rate of 10 mL an hour and currently the enteral feeding is on hold awaiting surgery. On today's evaluation of 09/18/2020, the patient is post PEG tube insertion and tracheostomy tube insertion. As noted earlier, the patient had a massively enlarged and swollen and protruding the tongue and on today's evaluation the tongue seems to be smaller and more retracted as the orotracheal tube has been taken out and the patient was given a tracheostomy. Currently she is a trach tube which is a Shiley #8. She is calm and comfortable. She is on a combination of propofol and fentanyl. We're the process of weaning the sedation. She is arousable. She is following commands. She is currently running at propofol at 40 mcg/kg per minute and fentanyl is running at 2 mcg/ kg/h. She stated that she was in pain and essentially intended to drop the propofol and keep the fentanyl for now. She is quite successfully mechanical ventilator. She is currently on assist control mode with a rate of 18 and tidal volume of 350and FiO2 of 40% with a PEEP of 8. The blood gases from today showing a pH of 7.45 with a pCO2 43 and pO2 of 154. The patient is also having a follow-up chest x-ray that showed adequate positioning of the orotracheal tube. There is some limited infiltration of the lung bases bilaterally. There is also a left subclavian triple-lumen catheter. Otherwise, the patient is doing well. She is arousable. She is following some simple commands. The peak airway pressure on the mechanical ventilator is 24. She remains on Decadron 6 mg IV every 12 hours and the patient is also on Lovenox at a dose of 40 mg every 24 hours. On her blood work, the patient has a d-dimer of 1.83, the patient's LDH level is 1080 and a CRP level was not obtained on today's evaluation. As such, COVID-19 pneumonia is table and the patient is post tracheostomy tube inse rtion for the need of a prolonged ventilatory support. As far as enteral feeding, the patient was receiving vital high protein is be restarted within 24 hours a PEG tube insertion. PEG tube exit site is dry clean and intact at this point in time. No fever. Hemodynamically stable. No pressors. ENT was consulted regarding the tongue swelling. We are the process of weaning this patient of sedation. Protest on Levaquin for a few days ago was 0.05. 09/19/2020, the patient is off sedation with propofol and she is on requiring fentanyl at 1.5 mcg/kg per hour and this is only for pain control. she is awake and following commands and answering questions. She is profoundly weak. She again with increasing her fingers and toes. She cannot raise it against gravity. She can move her head. She can blink. Her tongue swelling has improved considerably. She isPost tracheostomy tube insertion and the patient has a #[address]. On today's evaluation, the patient has a assist-control mode rate of 18, tidal volume is at 350, FiO2 is at 40% and a PEEP is currently at 5. The blood gases from today showed a pH of 7.44 with a pCO2 of 41 and pO2 of 107. The chest x-ray from today is showing adequate positioning of the tracheostomy tube. Limited bibasilar pulmonary infiltrates. Findings are essentially stable for now. In terms of inflammatory markers, the d-dimer is down to 3.1 and the LDH level is 1055 and a CRP level is 1.9. Rest of the blood work and electrodes are all within normal limits. She has a PEG tube for which she is getting enteral feeding and nutritional support. She is currently receiving vital high protein at the rate of 30 mL an hour. No abdominal distention. She has not had a bowel movement since 09/11/2020. Her pro-calcitonin level was low. She remains on Lovenox 40 mg subcu every 24 hours. She is also on Decadron 6 mg IV once a day. 09/20/2020, the patient is completely off sedation. She is awake. Extremely weak limited to prolonged hospitalization intubation mechanical ventilation. She is able to wiggle her toes pH is able to communicate. She follows instructions the she also response to commands. She is very much, comfortable. She is laying down comfortably in bed. She is still on a mechanical ventilator. She has a Shiley tracheostomy tube #8. She is currently on a tidal volume of 350 with an FiO2 of 40% and a PEEP of 5 and a rate of 18. Blood gases from today shows a pH of 7.49 with a pCO2 of 40 and pO2 of 126. Chest x-ray from today is showing no significant change. Note that the patient was given a spontanous breathing trial yesterday with a support of 10 and a PEEP of 5. She was able to tolerate it for a total of 30 minutes and that she gets tired and she was placed back on assist control volume cycle mechanical ventilator. There is clearing of the lower lobe pulmonary infiltrates and a tracheostomy tube is in a good location. She is receiving enteral feeding for nutritional support and she is currently on vital high protein at the rate of 46 mL an hour. On her blood work, the inflammatory markers show a decline in the LDH and CRP as noted from today with an LDH of 883 and a CRP of 1.6. Renal function stable. Hemoglobin is at 9.0. No other issues for now. Does have dropped feet bilaterally and the patient has medi boots. The patient has been in a negative fluid balance as the patient is receiving Lasix 40 mg IV every 24 hours. There is significant improvement edema in all 4 extremities. She is also on Decadron 4 mg oral dose as the patient has been in the hospital and was being on steroids for the past 2 weeks. On 09/21/2020 patient seen in follow-up in the intensive care unit, she remains off all sedation, she is following commands, she is awake and alert, she is mouthing words, she is able to raise her arms slightly, and wiggle her toes, however she remains very weak, she has been tolerating pressure support trials, and she currently remains on pressure support of 10 and CPAP of 5, with FiO2 of 40%, and she has been tolerating them very well, is maintaining O2 saturation at or around 96-97% on FiO2 of 40%, her vital signs have been stable, hem odynamically she stable, she is in sinus mechanism, she has had some low-grade fevers, afebrile this morning, blood cultures have shown no growth. Today's labs have been reviewed, normal white count at 8.5, hemoglobin of 8.9, sodium is 133, potassium is 3.5, chloride is 102, CO2 31, BUN of 21 creatinine 0.42, LDH is trending down, and is currently at 793, and CRP is at 1.0. Patient remains on oral Decadron 4 mg daily, current dose of Lovenox is 40 mg daily. Today's chest x-ray shows similar appearing bilateral interstitial opacities. She is receiving nutritional support in the form of vital high protein at goal, with standard water flushes, and patient has been tolerating tube feedings quite well. Patient will receive a PICC line today, her central line will be discontinued, discharge planning is in progress for discharge to LTAC facility Objective - Vital Signs Vital signs: Vital Signs Temp 99.1 F 09/21/20 08:00 Pulse 87 09/21/20 10:00 Resp 15 09/21/20 10:00 BP 136/67 09/21/20 10:00 Pulse Ox 96 09/21/20 10:00 Intake & Output 09/20/20 09/21/20 09/21/20 18:59 06:59 18:59 Intake Total 1032 895 412 Output Total 2265 715 1160 Balance -1233 180 -748 Weight 72.2 kg Intake: IV 299 253 92 Sodium Chloride 0.9% 1, 260 220 80 000 ml @ 20 mls/hr IV . [facility] Rx#:[id number] pressure bag 39 33 12 Tube Feeding 598 552 230 Other 135 90 90 Output: Urine 2265 715 1160 Other: Voiding Method Indwelling Catheter Indwelling Catheter Indwelling Catheter ABP, PAP, CO, CI - Last Documented Arterial Blood Pressure 112/50 - Exam GENERAL EXAM: Awake and alert, 65-year-old white female trached to the vent ilator, on pressure-support of 10, and CPAP of 5, and FiO2 of 40% of 96%, comfortable in no apparent distress. HEAD: Normocephalic/atraumatic. EYES: Normal reaction of pupils, equal size. Conjunctiva pink, sclera white. NOSE: Clear with pink turbinates. THROAT: No erythema or exudates. NECK: No masses, no JVD, no thyroid enlargement, no adenopathy. Midline tracheostomy patient has a Shiley tube in place, and it is connected to the ventilator patient is currently on pressure-support mode of ventilation CHEST: No chest wall deformity. Symmetrical expansion. LUNGS: Equal air entry with no crackles, wheeze, rhonchi or dullness. CVS: Regular rate and rhythm, normal S1 and S2, no gallops, no murmurs, no rubs ABDOMEN: Soft, nontender. No hepatosplenomegaly, normal bowel sounds, no guarding or rigidity. PEG tube is in place and patient is receiving nutritional support with tube feedings EXTREMITIES: No clubbing, no edema, no cyanosis, 2+ pulses and upper and lower extremities. MUSCULOSKELETAL: Muscle strength and tone normal. SPINE: No scoliosis or deformity SKIN: No rashes CENTRAL NERVOUS SYSTEM: Awake and alert, oriented 3, is trached, she is able to mouth words, she is responding appropriately to verbal command, No focal deficits, tone is normal in all 4 extremities. - Labs CBC & Chem 7: 09/21/20 05:00 09/21/20 05:00 Labs: Abnormal Lab Results - Last 24 Hours (Table) 09/20/20 09/20/20 09/21/20 Range/Units 11:37 17:55 00:05 RBC (3.80-5.40) m/uL Hgb (11.4-16.0) gm/dL Hct (34.0-46.0) % ABG pH (7.35-7.45) ABG pO2 (83-108) mmHg ABG HCO3 (21-25) mmol/L ABG Total CO2 (19-24) mmol/L ABG O2 Saturation (94-97) % Sodium (137-145) mmol/L Carbon Dioxide (22-30) mmol/L BUN (7-17) mg/dL Creatinine (0.52-1.04) mg/dL Glucose (74-99) mg/dL POC Glucose (mg/dL) 171 H 130 H 127 H (75-99) mg/dL Calcium (8.4-10.2) mg/dL Lactate Dehydrogenase (313-618) U/L C-Reactive Protein (<1.0) mg/dL 09/21/20 09/21/20 09/21/20 Range/Units 05:00 05:00 05:34 RBC 2.98 L (3.80-5.40) m/uL Hgb 8.9 L (11.4-16.0) gm/dL Hct 26.1 L (34.0-46.0) % ABG pH (7.35-7.45) ABG pO2 (83-108) mmHg ABG HCO3 (21-25) mmol/L ABG Total CO2 (19-24) mmol/L ABG O2 Saturation (94-97) % Sodium 133 L (137-145) mmol/L Carbon Dioxide 31 H (22-30) mmol/L BUN 21 H (7-17) mg/dL Creatinine 0.42 L (0.52-1.04) mg/dL Glucose 122 H (74-99) mg/dL POC Glucose (mg/dL) 131 H (75-99) mg/dL Calcium 8.1 L (8.4-10.2) mg/dL Lactate Dehydrogenase 793 H (313-618) U/L C-Reactive Protein 1.0 H (<1.0) mg/dL 09/21/20 Range/Units 05:48 RBC (3.80-5.40) m/uL Hgb (11.4-16.0) gm/dL Hct (34.0-46.0) % ABG pH 7.49 H (7.35-7.45) ABG pO2 118 H (83-108) mmHg ABG HCO3 31 H (21-25) mmol/L ABG Total CO2 32 H (19-24) mmol/L ABG O2 Saturation 99.0 H (94-97) % Sodium (137-145) mmol/L Carbon Dioxide (22-30) mmol/L BUN (7-17) mg/dL Creatinine (0.52-1.04) mg/dL Glucose (74-99) mg/dL POC Glucose (mg/dL) (75-99) mg/dL Calcium (8.4-10.2) mg/dL Lactate Dehydrogenase (313-618) U/L C-Reactive Protein (<1.0) mg/dL Assessment and Plan Plan: Assessment: #1. Acute hypoxic respiratory failure related to acute COVID 19 pneumonia, patient was admitted to the hospital on 09/05/2020, transfer to the intensive care unit on 09/07/2020 and intubated on 09/07/2020, will receive a dose of Actemra 1, and, convalescent plasma 1 on 09/07/2020. Patient received a tracheostomy tube and PEG tube on 09/17/2020, without complications, patient is currently off sedation, following commands, and currently on pressure-support with pressure of 10 and CPAP of 5, tolerating them well so far #2. Elevated inflammatory markers including LDH and a d-dimer, which are improving and patient is currently on Decadron 4 mg daily, and at prophylactic dose of Lovenox #3. Swollen and extremely bulky and enlarged tongue, the possibility of ALLERGIC reaction and possibility of angioedema consider possibility of an stomach obstruction and secondary swelling and the swelling has improved, and patient had the orotracheal ET tube removed and patient currently has a tracheostomy tube in place and the tongue swelling has pretty much subsided #4. Retention, currently better controlled, and she is on cognition and Norvasc on Lopressor and hydralazine #5. Increased inflammatory markers, improving #6. Hypothyroidism #6. Never smoker #7. IBS #8. 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 Plan: Continue with pressure-support trials, and patient may be switched to assist control mode of ventilation if she becomes fatigued Keep off sedation Continue nutritional support Continue current dose of prophylactic Lovenox in the Decadron is being weaned and is currently at 4 mg daily Physical therapy to continue working on passive range of motion Chest x-ray and labs reviewed Clinically stable, oxygenation has improved and patient has been breathing comfortably tolerating pressure-support trials and maintaining O2 saturations above 92-94% on FiO2 of 40% Patient is stable for LTAC facility discharge today We'll obtain a PICC line, and remove the central line I performed a history & physical examination of the patient and discussed their management with my nurse practitioner, Danyell Larsen. I reviewed the nurse practitioner's note and agree with the documented findings and plan of care. Lung sounds are positive for diminished breath sounds. The findings and the impression was discussed with the patient. I attest to the documentation by the nurse practitioner. Time with Patient: Greater than 30
--- NOTE | 2020-09-21 11:43 | CDI ---
Documentation Clarification Form Date: 09/21/2020 11:28:14 AM From: Tiffany Caldwell RN, CCDS Admit Date: 09/05/2020 09:59:00 PM Patient Name: Peri Ayala Visit Number: [id number] ATTENTION: The Clinical Documentation Specialists (CDI) and [facility] Coding Staff appreciate your assistance in clarifying documentation. Please respond to the clarification below the line at the bottom and electronically sign. The CDI & [facility] Coding staff will review the response and follow-up if needed. Please note: Queries are made part of the Legal Health Record. If you have any questions, please contact the author of this message via ITS. Dr. Juan Peace There is documentation of nausea, vomiting, and diarrhea in a patient with documented COVID 19. Additional clarification is requested in regards to if the conditions are related to Covid 19. History/Risk Factors: GERD, HTN, Hypothyroidism, IBS, Hiatal Hernia, Covid 19 pneumonia with acute hypoxic respiratory failure s/p trach and peg, critical illness polyneuropathy and myopathy Clinical Indicators: 09/06 H&P-09/20 Attending Progress Notes: "she's been exposed to Covid 19 from both her son and daughter who states she's had symptoms similar today for last 8 days which include nausea vomiting recently diarrhea rhinorrhea no overt shortness of breath she does have a cough also a fever and generalized weakness. Decreased oral intake." Treatment: 09/05 1L 0.9% NS IVF Bolus followed by 130 cc/hr. 09/07 1L 0.9% NS IVF Bolus 09/08 31L 0.9% NS IVF Bolus Electrolytes replaced per protocol Daily Multivitamin Tube feedings of Vital High Protein as recommended by Dietary Can you please clarify if the nausea, vomiting and diarrhea are related to COVID 19? [ ] Covid 19 viral enteritis [ ] GI symptoms are related to other specified cause, please specify [ ] Unable to determine (Template Last Revised: August 2020) COVID 19 viral enteritis MTDD
[2020-09-21 12:03] LABS: Glucose,Whole Blood 217 mg/dL (75-99)
[2020-09-21] MEDS: SODIUM CHLORIDE 0.9% 500 ML 500 ML IV SCH (15:11)
[2020-09-21] MEDS: LEVOFLOXACIN 500MG-D5W PMX 500 MG in DEXTROSE/WATER 1 100ML.BAG IVPB SCH (16:48)
--- NOTE | 2020-09-21 17:05 | IR ---
EXAMINATION TYPE: IR cvc insert >=5 years DATE OF EXAM: 09/21/2020 COMPARISON: NONE HISTORY: Needs long-term intravenous access for therapy, Covid 19 infection, pneumonia FINDINGS: Maximal barrier technique was utilized. Hand hygiene obtained with soap and water and alco hol-based hand rub. The skin overlying the right upper extremity vein was localized with ultrasound a nd noted to be compressible and patent by ultrasound. An ultrasound image was obtained and submitted on patient's chart. Sterile technique utilized with the ultrasound machine. The skin overlying was p repped and draped and Lidocaine used for local anesthesia. A skin joey was made with a scalpel. Acc ess was gained to the vein under direct ultrasound guidance with a 21-gauge needle and a 0.018 inch w shira was advanced. Access site was dilated with a peel-away sheath and the catheter tailored to lengt h. Catheter advanced centrally and a post procedure chest x-ray verified placement with tip at the s uperior vena cava. Catheter was fixed to the skin and a sterile dressing placed. Hemostasis achieve d and the catheter was aspirated and flushed with sterile saline. The patient remained in stable con dition. IMPRESSION: STATUS POST ULTRASOUND GUIDED PICC LINE PLACEMENT, READY FOR USE. THIS PROCEDURE WAS PER FORMED BY THE UNDERSIGNED.
[2020-09-21 17:36] LABS: Glucose,Whole Blood 175 mg/dL (75-99)
[2020-09-21] MEDS: ASPIRIN 81 MG PO SCH (20:31)
[2020-09-21] MEDS: ATORVASTATIN 20 MG TAB PO SCH (20:31)
[2020-09-21] MEDS: MELATONIN 5 MG TABLET PO SCH (20:31)
[2020-09-21] MEDS: LORATADINE 10 MG TAB PO SCH (20:31)
[2020-09-21] MEDS: MONTELUKAST 10 MG TAB PO SCH (20:31)
[2020-09-21] MEDS: MULTIVITAMINS, THERA 1 EACH TAB PO SCH (20:31)
--- NOTE | 2020-09-21 20:56 | P.PN ---
Progress Note - Text Progress Note Date: 09/21/20 Chief Complaint: Difficulty breathing/COVID positive History of presenting complaint 65-year-old female , whose PCP is Dr. Haq, states she's been exposed to Covid 19 from both her son and daughter who states she's had symptoms similar today for last 8 days which include nausea vomiting recently diarrhea rhinorrhea no overt shortness of breath she does have a cough also a fever and generalized weakness. decreased oral intake. She is here just because she is profoundly weak at this time. Not able to keep fluids down. Admitted with COVID 19 pneumonia. Acute hypoxic respiratory failure. Patient was given convalescent plasma. Dexamethasone, September 07: into respiratory distress. intubated. Given ACTEMRA. Convalescent plasma. , September 17: PEG tube and tracheostomy tube done Today: ICU: Had a PICC line placed. Patient did CPAP yesterday at 40/5. And today. Some pus/redness was noted around PEG tube. Bolster was loosened by surgery. They added Levaquin. Telemetry sinus rhythm. Awake. Weakness in the limbs. Review of systems: Unable to obtain Active Medications Acetaminophen (Acetaminophen Tab 325 Mg Tab) 650 mg PO Q6HR PRN PRN Reason: Mild Pain or Fever > 100.5 Last Admin: 09/19/20 22:21 Dose: 650 mg Documented by: Albuterol Sulfate (Albuterol Hfa Inhaler) 2 puff INHALATION RT-QID PRN PRN Reason: Shortness Of Breath Or Wheezing Albuterol Sulfate (Albuterol Hfa Inhaler) 4 puff INHALATION RT-QID [facility] Last Admin: 09/21/20 19:51 Dose: 4 puff Documented by: Amlodipine Besylate (Amlodipine 5 Mg Tab) 5 mg PO BID [facility] Last Admin: 09/21/20 20:31 Dose: 5 mg Documented by: Ascorbic Acid (Ascorbic Acid 500 Mg Tab) 1,000 mg PO DAILY [facility] Last Admin: 09/21/20 08:15 Dose: 1,000 mg Documented by: Aspirin (Aspirin 81 Mg) 81 mg PO [facility] Last Admin: 09/21/20 20:31 Dose: 81 mg Documented by: Atorvastatin Calcium (Atorvastatin 20 Mg Tab) 20 mg PO [facility] Last Admin: 09/21/20 20:31 Dose: 20 mg Documented by: Chlorhexidine Gluconate (Chlorhexidine Gluconate 15 Ml Cup) 15 ml MUCOUS MEM BID [facility] Last Admin: 09/21/20 20:31 Dose: 15 ml Documented by: Cholecalciferol (Cholecalciferol 25 Mcg (1000 Iu) Tablet) 125 mcg PO DAILY [facility] Last Admin: 09/21/20 08:15 Dose: 125 mcg Documented by: Citalopram Hydrobromide (Citalopram Hydrobromide 20 Mg Tab) 40 mg PO DAILY [facility] Last Admin: 09/21/20 08:14 Dose: 40 mg Documented by: Dexamethasone (Dexamethasone 4 Mg Tab) 4 mg PO DAILY [facility] Last Admin: 09/21/20 08:15 Dose: 4 mg Documented by: Enoxaparin Sodium (Enoxaparin 40 Mg/0.4 Ml Syringe) 40 mg SQ DAILY [facility] Last Admin: 09/21/20 08:14 Dose: 40 mg Documented by: Furosemide (Furosemide 10 Mg/Ml 4 Ml Vial) 40 mg IV DAILY [facility] Last Admin: 09/21/20 08:15 Dose: 40 mg Documented by: Hydralazine HCl (Hydralazine Hcl 50 Mg Tab) 100 mg PO TID [facility] Last Admin: 09/21/20 20:31 Dose: 100 mg Documented by: Hydromorphone HCl (Hydromorphone 0.5 Mg/0.5 Ml Syringe) 0.5 mg IVP Q3HR PRN PRN Reason: Pain Last Admin: 09/21/20 17:45 Dose: 0.5 mg Documented by: Levofloxacin 500 mg/ IV (Solution) 100 mls @ 100 mls/hr IVPB Q24H [facility] Last Admin: 09/21/20 16:48 Dose: 100 mls/hr Documented by: Sodium Chloride (Saline 0.9%) 500 mls @ 20 mls/hr IV .Q24H [facility] Last Admin: 09/21/20 15:11 Dose: 20 mls/hr Documented by: Insulin Aspart (Insulin Aspart (Novolog) 100 Unit/Ml Vial) 0 unit SQ Q6H [facility]; Protocol Last Admin: 09/21/20 18:36 Dose: 4 unit Documented by: Iopamidol (Iopamidol Contrast (Oral Use) Vial) 30 ml PO ONCE PRN PRN Reason: CT Scan Stop: 09/22/20 23:00 Lactulose (Lactulose 20 Gm/30 Ml Cup) 30 gm PO BID PRN PRN Reason: Constipation Last Admin: 09/21/20 13:52 Dose: 30 gm Documented by: Levothyroxine Sodium (Levothyroxine 75 Mcg Tab) 75 mcg PO [id number] [facility] Last Admin: 09/21/20 07:06 Dose: 75 mcg Documented by: Levothyroxine Sodium (Levothyroxine 75 Mcg Tab) 37.5 mcg PO SA [facility] Last Admin: 09/19/20 20:12 Dose: 37.5 mcg Documented by: Loratadine (Loratadine 10 Mg Tab) 10 mg PO [facility] Last Admin: 09/21/20 20:31 Dose: 10 mg Documented by: Melatonin (Melatonin 5 Mg Tablet) 5 mg PO [facility] Last Admin: 09/21/20 20:31 Dose: 5 mg Documented by: Metoprolol Tartrate (Metoprolol Tartrate 50 Mg Tab) 100 mg PO DAILY [facility] Last Admin: 09/21/20 08:14 Dose: 100 mg Documented by: Miscellaneous Information (Potassium Replacement Protocol 1 Each Misc) 1 each MISCELLANE DAILY PRN; Protocol PRN Reason: Per Protocol Miscellaneous Information (Potassium Replacement Protocol 1 Each Misc) 1 each MISCELLANE DAILY PRN; Protocol PRN Reason: Per Protocol Miscellaneous Information (Potassium Replacement Protocol 1 Each Misc) 1 each MISCELLANE DAILY PRN; Protocol PRN Reason: Per Protocol Miscellaneous Information (Potassium Replacement Protocol 1 Each Misc) 1 each MISCELLANE DAILY PRN; Protocol PRN Reason: Per Protocol Montelukast Sodium (Montelukast 10 Mg Tab) 10 mg PO [facility] Last Admin: 09/21/20 20:31 Dose: 10 mg Documented by: Multivitamins (Multivitamins, Thera 1 Each Tab) 1 each PO [facility] Last Admin: 09/21/20 20:31 Dose: 1 each Documented by: Naloxone HCl (Naloxone 0.4 Mg/Ml 1 Ml Vial) 0.2 mg IV Q2M PRN PRN Reason: Opioid Reversal Pantoprazole Sodium (Pantoprazole 40 Mg/10 Ml Vial) 40 mg IVP BID [facility] Last Admin: 09/21/20 20:31 Dose: 40 mg Documented by: Sodium Chloride (Sodium Chloride 0.9% Flush 10 Ml Syringe) 10 ml IV Q4HR PRN PRN Reason: PICC Line Sodium Chloride (Sodium Chloride 0.9% Flush 10 Ml Syringe) 10 ml IV WEEKLY [facility] Sodium Chloride (Sodium Chloride 0.9% Flush 10 Ml Syringe) 20 ml IV Q4HR PRN PRN Reason: PICC Line Zinc Sulfate (Zinc Sulfate 220 Mg Cap) 220 mg PO DAILY [facility] Last Admin: 09/21/20 08:15 Dose: 220 mg Documented by: On examination: VITAL SIGNS: 99.1, 87, 16, 127/51, 97% on this CPAP/40% NECK: Tracheostomy tube GENERAL APPEARANCE: laying in bed, awake, tired PSYCHIATRY: Unable to assess NEURO: Weakness of the limbs. Following simple commands. Rest of exam as per pulmonary nursing INVESTIGATIONS, reviewed in the clinical context: September 21: WBC 8.5 hemoglobin 8.9 platelets 212 potassium 3.5 bun 21 creatinine 0.42 LDH 793 CRP 1 September 20: WBC 8.3 hemoglobin 9 platelets 206 d-dimer 3.5 for potassium 3.7 creatinine 0.4 to CRP 1.6 LDH 883 September 19: WBC 12.3 hemoglobin 9.7 d-dimer 3.2 potassium 3.9 creatinine 0.5 LDH 1055 CRP 1.9 September 18: WBC 11.6 hemoglobin 8.8 platelets 175 d-dimer 1.83 potassium 4.2 creatinine 0.59 LDH 180 September 15: WBC 16 hemoglobin 9.7 platelets 214 potassium 3.7 creatinine 0.59 September 16: WBC 10.6 hemoglobin 10.4 platelets 279 d-dimer 5.62 potassium 3.7 creatinine 0.5 to September 13: D-dimer 6.75 CRP 7.1 September 14: WBC 12.9 hemoglobin 9.6 potassium 4 creatinine 0.62 September 6: WBC 5.4 hemoglobin 8.8 platelets 237 d-dimer 1.67. Potassium 3.3 creatinine 0.53 CRP 216 September 07: WBC 5.7 hemoglobin 9.2 platelets 250 potassium 3.8 creatinine 0.73 troponin I 0.084 albumin 2.6 Chest x-ray film personally reviewed by me-[September 07: Bilateral infiltrates, confluent more so in the lower zones and metolazone EKG tracing personally reviewed by me-normal sinus rhythm. Nonspecific changes CT [place] chest: Extensive bilateral infiltrates with adenopathy. No PE Blood cultures: Negative Admission labs: Troponin I less than 0.012 Assessment and plan Acute hypoxic respiratory failure-improving - intubated on September 07. Patient now on CPAP since yesterday. At 40% Interstitial pneumonia secondary to COVID-19: Slow to respond -Receiving Lovenox, dexamethasone, vitamin C vitamin D, Pepcid, zinc. Received ACTEMRA and convalescent plasma Hypothyroidism; - levothyroxine 75 MCG daily Essential Hypertension; better controlled lisinopril to 20 mg twice a day, amlodipine to 5 mg twice a day Hyperlipidemia; -continue with home statin therapy Asthma; not in exacerbation; -continue singular 10 mg daily home inhaler therapy GERD: - Continue with PPI Irritable bowel syndrome: -Follow clinically Raynauds phenomenon. - Follow clinically Diabetes mellitus type 2; uncontrolled with hyperglycemia -hold metformin. Follow Accu-Cheks. Normocytic anemia. -Follow H&H Acute hypoalbuminemia: -Acute phase reactant Obesity BMI 31.4 -To follow outpatient for weight loss measures CODE STATUS; full code -PEG tube and tracheostomy-September 17. -Acute medical debility multifactorial PTOT -Critical care myopathy PTOT -Acute PEG tube site cellulitis. Put on Levaquin. Plan is in place to possibly have the patient transferred. Surgery wants to do a computed tomography scan prior to that. Meantime continue current medication treatment plan.
[2020-09-21 23:51] LABS: Glucose,Whole Blood 108 mg/dL (75-99)
[2020-09-22] MEDS: INSULIN ASPART (NovoLOG) 100 UNIT/ML VIAL SQ SCH ×4 (00:01→18:34)
[2020-09-22] MEDS: HYDROmorphone 0.5 MG/0.5 ML SYRINGE IVP PRN ×3 (04:19→23:19)
--- NOTE | 2020-09-22 05:17 | CT ---
EXAM: CT Abdomen Without Intravenous Contrast CLINICAL HISTORY: ITS.REASON CT Reason: Epigastric pain, evaluate PEG TECHNIQUE: Axial computed tomography images of the abdomen without intravenous contrast. CTDI is 13.8 mGy and DLP is 536.2 mGy-cm. This CT exam was performed using one or more of the following dose reduction techniques: automated exposure control, adjustment of the mA and/or kV according to patient size, and/or use of iterative reconstruction technique. COMPARISON: No relevant prior studies available. FINDINGS: Lung bases: Patchy reticular and groundglass opacities within the lower lungs with consolidation of the left lower lobe likely is an infectious process. Liver: Lobular contour of the liver which may represent early cirrhosis. Gallbladder and bile ducts: Unremarkable. No calcified stones. No ductal dilation. Pancreas: Unremarkable. No ductal dilation. Spleen: Unremarkable. No splenomegaly. Adrenals: Unremarkable. No mass. Kidneys and ureters: Unremarkable. No obstructing stones. No hydronephrosis. Stomach and bowel: Unremarkable. No obstruction. No mucosal thickening. Intraperitoneal space: Unremarkable. No free air. No significant fluid collection. Bones/joints: No acute fracture. No dislocation. Soft tissues: See below. Vasculature: Unremarkable. No abdominal aortic aneurysm. Lymph nodes: Unremarkable. Tubes, lines and devices: Percutaneous G-tube is noted. This appears to be in appropriate position. There is mild edema within the soft tissues about the catheter. Correlate clinically to exclude cellulitis. IMPRESSION: 1. Patchy reticular and groundglass opacities within the lower lungs with consolidation of the left lower lobe likely is an infectious process. 2. Percutaneous G-tube is noted. This appears to be in appropriate position. There is mild edema within the soft tissues about the catheter. Correlate clinically to exclude cellulitis. 3. Lobular contour of the liver which may represent early cirrhosis.
[2020-09-22 05:32] LABS: Basophils % (A) 0 %; Eosinophils % (A) 0 %; HCT 27.4 % (34.0-46.0); HGB 9.3 gm/dL (11.4-16.0); Lymphocytes # (A) 0.8 k/uL (1.0-4.8); Lymphocytes % (A) 8 %; MCH 30.2 pg (25.0-35.0); MCHC 34.2 g/dL (31.0-37.0); MCV 88.4 fL (80.0-100.0); Mean Platelet Volume 7.8; Monocytes # (A) 0.6 k/uL (0-1.0); Monocytes % (A) 6 %; Neutrophils # (A) 8.1 k/uL (1.3-7.7); Neutrophils % (A) 84 %; Platelet Count 218 k/uL (150-450); RDW 14.6 % (11.5-15.5); WBC 9.7 k/uL (3.8-10.6)
[2020-09-22 05:58] LABS: Glucose,Whole Blood 181 mg/dL (75-99)
[2020-09-22] MEDS: LEVOTHYROXINE 75 MCG TAB PO SCH (06:03)
[2020-09-22 06:07] LABS: ABG Base Excess 7.1 mmol/L; ABG HCO3 30 mmol/L (21-25); ABG Oxygen Saturation 99.2 % (94-97); ABG PCO2 40 mmHg (35-45); ABG PH 7.49 (7.35-7.45); ABG PO2 139 mmHg (83-108); ABG TCO2 32 mmol/L (19-24)
[2020-09-22 06:07] LABS: African American GFR (CKD) >90 (>60 ml/min/1.73 sqM); Anion Gap 0 mmol/L; Blood Urea Nitrogen 20 mg/dL (7-17); C Reactive Protein 1.4 mg/dL (<1.0); Calcium 8.7 mg/dL (8.4-10.2); Carbon Dioxide 31 mmol/L (22-30); Chloride 101 mmol/L (98-107); Glucose 158 mg/dL (74-99); LDH 816 U/L (313-618); Non-African American GFR(CKD) >90 (>60 ml/min/1.73 sqM); Potassium 3.5 mmol/L (3.5-5.1); Sodium 132 mmol/L (137-145)
[2020-09-22 06:08] LABS: Allen Test Performed? no
[2020-09-22] MEDS: POTASSIUM BICARBONATE/CIT AC 20 MEQ TABLET.EFF NG-TUBE SCH ×2 (06:25→08:11)
[2020-09-22] MEDS: ALBUTEROL HFA INHALER INHALATION SCH ×4 (07:18→22:29)
--- NOTE | 2020-09-22 07:31 | XR ---
EXAMINATION TYPE: XR chest 1V portable DATE OF EXAM: 09/22/2020 Comparison: 09/21/2020 Clinical History: 65-year-old female vent Findings: Tracheostomy cannula. Residual oral contrast material within the stomach. Heart upper limits of joana l in size. Mild interstitial opacities are relatively similar. No mathieu consolidation or pleural effu young. Right PICC tip mid SVC level. Left subclavian CVC removed in the interval. No pleural effusion. Impression: Very mild interstitial infiltrates are similar.
[2020-09-22] MEDS ORDERED: IOPAMIDOL CONTRAST (ORAL USE) VIAL PO PRN (08:00)
[2020-09-22] MEDS: dexAMETHasone 4 MG TAB PO SCH (08:09)
[2020-09-22] MEDS: ASCORBIC ACID 500 MG TAB PO SCH (08:10)
[2020-09-22] MEDS: METOPROLOL TARTRATE 50 MG TAB PO SCH (08:10)
[2020-09-22] MEDS: CHOLECALCIFEROL 25 MCG (1000 IU) TABLET PO SCH (08:10)
[2020-09-22] MEDS: FUROSEMIDE 10 MG/ML 4 ML VIAL IV SCH (08:10)
[2020-09-22] MEDS: PANTOPRAZOLE 40 MG/10 ML VIAL IVP SCH ×2 (08:10→20:46)
[2020-09-22] MEDS: ZINC SULFATE 220 MG CAP PO SCH (08:10)
[2020-09-22] MEDS: CITALOPRAM HYDROBROMIDE 20 MG TAB PO SCH (08:10)
[2020-09-22] MEDS: hydrALAZINE HCL 50 MG TAB PO SCH ×3 (08:10→20:46)
[2020-09-22] MEDS: amLODIPine 5 MG TAB PO SCH ×2 (08:10→20:46)
[2020-09-22] MEDS: CHLORHEXIDINE GLUCONATE 15 ML CUP MUCOUS MEM SCH ×2 (08:11→20:46)
[2020-09-22] MEDS: ENOXAPARIN 40 MG/0.4 ML SYRINGE SQ SCH (08:11)
--- NOTE | 2020-09-22 10:57 | P.PN ---
<Kayce Morocho - Last Filed: 09/22/20 10:47> Subjective Progress Note Date: 09/22/20 CHIEF COMPLAINT: Respiratory failure HISTORY OF PRESENT ILLNESS: Patient is status post tracheostomy and PEG tube placement. She is tolerating tube feedings. Tube feeds are at goal. She is a possible transfer to LTAC, pending insurance authorization. She is on mechanical ventilation. She had some drainage around the PEG tube site yesterday and was started on Levaquin. Computed tomography scan of the abdomen and pelvis shows percutaneous G-tube is noted. This appears to be in appropriate position. There is mild edema within the soft tissue about the catheter. Correlate clinically to exclude cellulitis. Patchy reticular and groundglass opacities within the lower lungs with consolidation of the left lower lobe likely is an infectious process. Lobular contour of the liver which may represent early cirrhosis. Afebrile. Patient was tachycardic with a heart rate of 128 this morning now down to 91. WBC 9.7 hemoglobin 9.3 PHYSICAL EXAM: VITAL SIGNS: Reviewed. GENERAL: Well-developed in no acute distress. HEENT: Trach site clean dry and intact ABDOMEN: Soft. Nondistended. Nontender. PEG tube site clean dry and intact NEUROLOGIC: Alert and oriented. Cranial nerves II through XII grossly intact. ASSESSMENT: 1. Acute hypoxic respiratory failure secondary to COVID-19 pneumonia. Status post tracheostomy placement 2. Severe protein calorie malnutrition status post PEG tube placement 3. Drainage from PEG tube site PLAN: -Continue ICU management -Continue supportive care -Continue antibiotics -Continue tube feedings -Further recommendations forthcoming per surgeon Physician Chlorine Operator note has been reviewed by physician. Signing provider agrees with the documented findings, assessment, and plan of care. Objective - Vital Signs Vital signs: Vital Signs Temp 97.8 F 09/22/20 05:00 Pulse 91 09/22/20 10:00 Resp 20 09/22/20 10:00 BP 136/67 09/22/20 06:00 Pulse Ox 97 09/22/20 10:00 Intake & Output 09/21/20 09/22/20 09/22/20 18:59 06:59 18:59 Intake Total 1175 964 412 Output Total 2480 525 915 Balance -1305 439 -503 Weight 72.2 kg 72.4 kg Intake: IV 156 256 92 Sodium Chloride 0.9% 1, 120 000 ml @ 20 mls/hr IV . Q24H [facility] Rx#:[id number] Sodium Chloride 0.9% 500 220 80 ml 500 ml @ 20 mls/hr IV .Q24H [facility] Rx#:[id number] pressure bag 36 36 12 Intake, IV Titration 180 20 Amount Levofloxacin 500Mg-D5w 100 Pmx 500 mg In Dextrose/ Water 1 100ml.bag @ 100 mls/hr IVPB Q24H [facility] Rx#: [id number] Sodium Chloride 0.9% 500 80 20 ml 500 ml @ 20 mls/hr IV .Q24H [facility] Rx#:[id number] Tube Feeding 689 598 230 Other 150 90 90 Output: Urine 2480 525 915 Other: Voiding Method Indwelling Catheter Indwelling Catheter # Bowel Movements 1 1 ABP, PAP, CO, CI - Last Documented Arterial Blood Pressure 118/53 - Labs CBC & Chem 7: 09/22/20 04:57 09/22/20 04:57 Labs: Abnormal Lab Results - Last 24 Hours (Table) 09/21/20 09/21/20 09/21/20 Range/Units 12:01 17:34 23:49 RBC (3.80-5.40) m/uL Hgb (11.4-16.0) gm/dL Hct (34.0-46.0) % Neutrophils # (1.3-7.7) k/uL Lymphocytes # (1.0-4.8) k/uL ABG pH (7.35-7.45) ABG pO2 (83-108) mmHg ABG HCO3 (21-25) mmol/L ABG Total CO2 (19-24) mmol/L ABG O2 Saturation (94-97) % Sodium (137-145) mmol/L Carbon Dioxide (22-30) mmol/L BUN (7-17) mg/dL Creatinine (0.52-1.04) mg/dL Glucose (74-99) mg/dL POC Glucose (mg/dL) 217 H 175 H 108 H (75-99) mg/dL Lactate Dehydrogenase (313-618) U/L C-Reactive Protein (<1.0) mg/dL 09/22/20 09/22/20 09/22/20 Range/Units 04:57 04:57 05:57 RBC 3.10 L (3.80-5.40) m/uL Hgb 9.3 L (11.4-16.0) gm/dL Hct 27.4 L (34.0-46.0) % Neutrophils # 8.1 H (1.3-7.7) k/uL Lymphocytes # 0.8 L (1.0-4.8) k/uL ABG pH (7.35-7.45) ABG pO2 (83-108) mmHg ABG HCO3 (21-25) mmol/L ABG Total CO2 (19-24) mmol/L ABG O2 Saturation (94-97) % Sodium 132 L (137-145) mmol/L Carbon Dioxide 31 H (22-30) mmol/L BUN 20 H (7-17) mg/dL Creatinine 0.44 L (0.52-1.04) mg/dL Glucose 158 H (74-99) mg/dL POC Glucose (mg/dL) 181 H (75-99) mg/dL Lactate Dehydrogenase 816 H (313-618) U/L C-Reactive Protein 1.4 H (<1.0) mg/dL 09/22/20 Range/Units 06:00 RBC (3.80-5.40) m/uL Hgb (11.4-16.0) gm/dL Hct (34.0-46.0) % Neutrophils # (1.3-7.7) k/uL Lymphocytes # (1.0-4.8) k/uL ABG pH 7.49 H (7.35-7.45) ABG pO2 139 H (83-108) mmHg ABG HCO3 30 H (21-25) mmol/L ABG Total CO2 32 H (19-24) mmol/L ABG O2 Saturation 99.2 H (94-97) % Sodium (137-145) mmol/L Carbon Dioxide (22-30) mmol/L BUN (7-17) mg/dL Creatinine (0.52-1.04) mg/dL Glucose (74-99) mg/dL POC Glucose (mg/dL) (75-99) mg/dL Lactate Dehydrogenase (313-618) U/L C-Reactive Protein (<1.0) mg/dL <David Al - Last Filed: 09/22/20 16:46> Subjective CAT scan reviewed. Mild thickening of the rectus noted. No abscess seen. When I reexamined the PEG tube today again proximally 5 mL of malodorous purulent fluid came out from around the PEG tube. No fluctuance or erythema around the PEG tube. She is afebrile with a normal white blood cell count. Continue antibiotics. We will reevaluate tomorrow. Objective - Vital Signs Vital signs: Vital Signs Temp 98.7 F 09/22/20 16:00 Pulse 79 09/22/20 16:00 Resp 20 09/22/20 16:00 BP 136/67 09/22/20 06:00 Pulse Ox 98 09/22/20 16:00 Intake & Output 09/21/20 09/22/20 09/22/20 18:59 06:59 18:59 Intake Total 9568 844 6173 Output Total 2480 525 1460 Balance -1305 439 -398 Weight 72.2 kg 72.4 kg Intake: IV 156 256 230 Sodium Chloride 0.9% 1, 120 000 ml @ 20 mls/hr IV . Q24H [facility] Rx#:[id number] Sodium Chloride 0.9% 500 220 200 ml 500 ml @ 20 mls/hr IV .Q24H [facility] Rx#:[id number] pressure bag 36 36 30 Intake, IV Titration 180 20 100 Amount Levofloxacin 500Mg-D5w 100 100 Pmx 500 mg In Dextrose/ Water 1 100ml.bag @ 100 mls/hr IVPB Q24H [facility] Rx#: [id number] Sodium Chloride 0.9% 500 80 20 ml 500 ml @ 20 mls/hr IV .Q24H [facility] Rx#:[id number] Tube Feeding 689 598 552 Other 150 90 180 Output: Urine 2480 525 1460 Other: Voiding Method Indwelling Catheter Indwelling Catheter Indwelling Catheter # Bowel Movements 1 1 ABP, PAP, CO, CI - Last Documented Arterial Blood Pressure 121/50 - Labs CBC & Chem 7: 09/22/20 04:57 09/22/20 04:57 Labs: Abnormal Lab Results - Last 24 Hours (Table) 09/21/20 09/21/20 09/22/20 Range/Units 17:34 23:49 04:57 RBC 3.10 L (3.80-5.40) m/uL Hgb 9.3 L (11.4-16.0) gm/dL Hct 27.4 L (34.0-46.0) % Neutrophils # 8.1 H (1.3-7.7) k/uL Lymphocytes # 0.8 L (1.0-4.8) k/uL ABG pH (7.35-7.45) ABG pO2 (83-108) mmHg ABG HCO3 (21-25) mmol/L ABG Total CO2 (19-24) mmol/L ABG O2 Saturation (94-97) % Sodium (137-145) mmol/L Carbon Dioxide (22-30) mmol/L BUN (7-17) mg/dL Creatinine (0.52-1.04) mg/dL Glucose (74-99) mg/dL POC Glucose (mg/dL) 175 H 108 H (75-99) mg/dL Lactate Dehydrogenase (313-618) U/L C-Reactive Protein (<1.0) mg/dL 09/22/20 09/22/20 09/22/20 Range/Units 04:57 05:57 06:00 RBC (3.80-5.40) m/uL Hgb (11.4-16.0) gm/dL Hct (34.0-46.0) % Neutrophils # (1.3-7.7) k/uL Lymphocytes # (1.0-4.8) k/uL ABG pH 7.49 H (7.35-7.45) ABG pO2 139 H (83-108) mmHg ABG HCO3 30 H (21-25) mmol/L ABG Total CO2 32 H (19-24) mmol/L ABG O2 Saturation 99.2 H (94-97) % Sodium 132 L (137-145) mmol/L Carbon Dioxide 31 H (22-30) mmol/L BUN 20 H (7-17) mg/dL Creatinine 0.44 L (0.52-1.04) mg/dL Glucose 158 H (74-99) mg/dL POC Glucose (mg/dL) 181 H (75-99) mg/dL Lactate Dehydrogenase 816 H (313-618) U/L C-Reactive Protein 1.4 H (<1.0) mg/dL 09/22/20 Range/Units 11:46 RBC (3.80-5.40) m/uL Hgb (11.4-16.0) gm/dL Hct (34.0-46.0) % Neutrophils # (1.3-7.7) k/uL Lymphocytes # (1.0-4.8) k/uL ABG pH (7.35-7.45) ABG pO2 (83-108) mmHg ABG HCO3 (21-25) mmol/L ABG Total CO2 (19-24) mmol/L ABG O2 Saturation (94-97) % Sodium (137-145) mmol/L Carbon Dioxide (22-30) mmol/L BUN (7-17) mg/dL Creatinine (0.52-1.04) mg/dL Glucose (74-99) mg/dL POC Glucose (mg/dL) 204 H (75-99) mg/dL Lactate Dehydrogenase (313-618) U/L C-Reactive Protein (<1.0) mg/dL Assessment and Plan (1) Respiratory failure Current Visit: Yes Status: Acute Code(s): J96.90 - RESPIRATORY FAILURE, UNSP, UNSP W HYPOXIA OR HYPERCAPNIA SNOMED Code(s): 295350103
[2020-09-22 11:48] LABS: Glucose,Whole Blood 204 mg/dL (75-99)
--- NOTE | 2020-09-22 12:56 | P.PN ---
Subjective Progress Note Date: 09/22/20 Principal diagnosis: Nausea, vomiting, diarrhea, weakness 65-year-old white female patient of Dr. Haq with past medical history of hypertension, hypothyroidism, IBS, hiatal hernia, renal disorder, who presented to the emergency department on 09/05/2020 with symptoms of nausea, vomiting, diarrhea, she reported some cough, fever and generalized weakness, but no overt shortness of breath. Patient had exposure to COVID 19 from her son and daughter. Patient had decreased oral intake, she came in with profound generalized weakness and not being able to keep fluids down. Chest x-ray showed bilateral patchy airspace pneumonia, COVID 19 PCR was positive. Patient was lymphopenic with lymphocytic 0.9, white blood cell count is 3.5, hemoglobin is 12.5, d-dimer 0.61, troponin was less than 0.012, pro calcitonin level was 0.07. LDH was 1550, CRP is 130.8, ferritin level is 337.5. Presentation patient was severely hypoxic, with O2 saturations in the low 80s on 100% FiO2. Blood gas was obtained showing pO2 of 44, pCO2 of 36, pH of 7.46, patient was intubated and placed on mechanical ventilator. She is currently sedated and paralyzed, and on assist control mode of ventilation with a rate of 28, tacrolimus 400, FiO2 100%, and PEEP of 14. This morning blood gases showed pO2 of 50, pCO2 36, and pH of 7.44. Currently patient sedated and paralyzed on [facility] ventilator. 0.9 at 130 in the per hour, and Nimbex is at 2 mics per kilo per minute, Diprivan is a 50 mics per kilo per minute, and fentanyl drip is currently is 1 mcg/kg/m. Patient has been started on IV steroids 60 mg every 6 hours of Solu-Medrol, she is on Lovenox 40 mg daily. She'll be given a dose of convalescent plasma and she is awaiting a dose of Tocili. Follow-up chest x-ray today shows increased bilateral patchy opacities, and trace right pleural effusion. CTA chest was completed showing no evidence of pulmonary embolism. On 09/08/2020 patient seen in follow-up in the intensive care units. She remains sedated, intubated, currently on assist control with a rate of 20s, tidal volume is 450, FiO2 70%, and PEEP of 18, this morning blood gases show pO2 of 63, pCO2 33, pH is 7.38. Patient is currently on 0.9 at 130 and no per hour, Diprivan is a 35 mics per kilo per minute, fentanyl drip is at 1 adam per kilo per minute, and Nexium is at 1.45 mics per kilo per minute. She is noted to be hypothermic early this morning with a temp of 93.4F. White blood cell count is 5.4, hemoglobin is 8.8, facet, 0.8, d-dimer is 1.67, sodium is 139, potassium is 3.3, chloride is 114, CO2 is 19, BUN is 13, creatinine 0.53, CRP is 216, AST is 40, ALT is 19, alkaline phosphatase is 80, troponin was less than 0.012. LDH is pending today. Progesterone level was negative at 0.07, urinalysis showed no evidence of infection. Blood cultures were negative. She remains on Lovenox 40 mg twice daily, IV Solu-Medrol 60 g every 6 hours, she received 480 mg of Tocilizumab. Received 1 unit of convalescent plasma. She is receiving nutritional support in the form of vital HP at 20 with a goal of 29. Has been tolerating tube feedings, fluid boluses were given yesterday, she still continues on 0.9 NS at 130 ML per hour and her urine output is marginal, and patient will receive additional liter fluid bolus On 09/14/2020 and seeing this patient for a follow-up as the patient is currently intubated on a mechanical ventilated with hypoxic respiratory failure due to COVID 19 related pneumonia and respiratory failure. The patient was intubated on 09/07/2020 and the patient has been treated with a convalescent plasma and received a dose of Actemra and the patient is currently on steroids. On today's evaluation, the patient remains sedated and the patient is currently on a combination of propofol 60 mics /kg per minute and the patient on fentanyl at 3 mcg/kg/h. The patient was also paralyzed and the paramedics was discontinued yesterday at around 10:00. Since then the patient has been off paralytics.. The patient remains on a mechanical ventilator on assist control mode at the rate of 28 with a tidal volume of 400 and FiO2 of 50% with a PEEP of 15. The patient blood gases is still pending from this morning.Chest x-ray showing diffuse bilateral pulmonary infiltrate, and the infiltrates are worse in the right lower lobe compared to the left although there is bilateral pulmonary infiltrates. The patient's subclavian triple-lumen catheter on the left and the patient has an ET tube that that being around 2 cm above the jason. and the patient remains on Lovenox 60 mg every 24 hours. The patient is receiving NovoLog insulin for size. Coverage blood sugar control. The patient is also utilizing clevidipine drip for blood pressure control at 2 mg an hour she is on Norvasc 5 mg by mouth twice a day. The patient is also on metoprolol 100 mg by mouth twice a day. The patient is on Zestril 20 mg by mouth twice a day for blood pressure control. The patient is on levothyroxine 75 g and 37.5 g orally on a daily basis. The patient is receiving enteral feeding for nutritional support. The most recent CRP level is at 9, the most recent LDH level was 1750. D-dimer was elevated at 8.2. Hypertension, hypothyroidism, IBS, hiatal hernia, and the patient initially presented to us on 09/05/2020 with gastrointestinal symptoms and shortness of breath. the morning labs show normal electrolytes, no other abnormalities are noted. The patient remains on IV Solu-Medrol 40 mg every 12 hours. Lovenox is a 60 mg every 12 hours and the patient d-dimer was 8.21. The peak airway pressures around 41. Static pressure is 33-34. On 09/15/2020, the patient remains intubated on mechanical ventilator. The patient was intubated for Covid 19 related pneumonia. The patient was intubated on 09/07/2020. The patient currently is sedated with propofol which is running at 60 mcg/kg per minute and the fentanyl is also running at 3 mcg/kg/h. The patient is off paralytics for now. Meanwhile, the patient remains an assist- control mode of ventilation which is essentially the same as yesterday. The patient is on a tidal volume of 350 with an FiO2 of 50% and a PEEP of 13 and the rate of 28. The peak airway pressures around 37 anesthetic pressures 34. The patient continues to have a very enlarged and swollen tongue which is nonnecrotic at this point in time. The blood gases from this morning shows a pH of 7.49 with a pCO2 of 38 and a pO2 of 90. Chest x-ray still pending for now. The chest x-ray from yesterday was still showing diffuse bilateral pulmonary in filtrates. Meanwhile, the patient is still on clevidipine drip for blood pressure control. Her blood pressure remains quite elevated. She is running at 4 mg an hour and the patient is also on a combination of Norvasc a total of 10 mg by mouth daily, metoprolol 100 mg by mouth twice a day, Zestril 20 mg by mouth twice a day. She is still receiving Solu-Medrol 40 mg IV every 8 hours. Anticoagulation is with Lovenox 60 mg by subcu twice a day. On her blood work, she has a normal renal function with a BUN of 27 and creatinine of 0.5. Electrolytes are normal. White count of 12.7 with a hemoglobin of 9.8. The liver function tests are essentially within normal limits. Hemodynamically stab le. No pressors for now. She is afebrile. Her net fluid balance is been +1.4 L over the past 24 hours. The patient is receiving enteral feeding for nutritional support. She is receiving vital high protein at the rate of 10 mL an hour. She is also receiving NovoLog insulin for sliding scale coverage. 09/16/2020, patient is being seen for a follow-up. The patient remains sedated with propofol at 50 mcg/kg per minute and fentanyl is running at 2.5 mcg/kg/h. No paralytics are being utilized. She remains on a mechanical ventilator. She is still with Covid 19 related pneumonia and she is intubated as such on 09/07/2020. She is on assist control mode at the rate of 28 with a tidal volume of 350 and FiO2 of 50% with a PEEP of 8. We were able to wean the PEEP considerably since yesterday. Her current peak airway pressure is 31. The follow-up blood gases from today showing a pH of 7.52 with a pCO2 of 35 and a pO2 of 61. The chest x-ray from today is showing bilateral pulmonary in filtrates and there is improved aeration in the upper lobes. There is still infiltration of the mid and lower lobes bilaterally. ET tube is in good location. The patient continues to have extensive tongue swelling which is obviously protruding outside her mouth. No signs of any necrosis of the tongue. I stopped the DEV inhibitor. She remains on steroids and the patient is receiving Solu Medrol 40 mg every 8 hours. She remains on Lovenox 60 mg of cutaneous every 12 hours. In terms of her blood work, the patient has a hemoglobin of 10.4 with a white cell count of 18.6, and platelet count is at 279, her d-dimer is at 5.62 which is lower compared to yesterday, the rest of the inflammatory markers are showing a CRP level of 6.9 which is also lower compared to yesterday. LFTs are normal. Creatinine 0.5 which is also normal. He was dynamically stable. She is on no pressors. Fluid balance is -3.8 L over the past 24 hours as the patient was being diuresed with Lasix. She received 40 mg of Lasix every 12 hours and this is obviously helped her with her fluid balance. She is gently sedated for now. She is arousable. Moves around. No agitation. She is quite successfully mechanical ventilator. During feeding is with vital high protein at the rate of 10 mL an hour. Orthostasis thousand and 21, the patient is awaiting PEG and trach. She is currently sedated with propofol running at 50 mcg/kg per minute and the fentanyl is running at 2.5 mcg/kg/h. The patient is on no paralytics. She is arousable and she is following some simple orders and commands even while being on sedation. She is gradually noted to be more aroused. As mentioned earlier she, she is a case of a Covid 19 related pneumonia with secondary respiratory failure and the patient has been on mechanical ventilator since 09/07/2020. She remains on assist control mode at the rate of 28 with a tidal volume of 350 and FiO2 of 50% with a PEEP of 8. The chest x-ray from today is showing infiltration in the mid and lower lung eli bilaterally. Most of the infiltration is in the perihilar area.. X-ray is looking slightly improved compared to yesterday and ET tube remains in a good location, The blood gases from today is showing a pH of 7.57 with a pCO2 of 33 and pO2 of 88. I'm suggesting a drop in her respiratory rate based on the fact that the patient has developed some respiratory alkalosis. The peak and static pressures are 29 and 22 respectively. I dropped a respiratory rate down to 18 and the flow down to 60. On a separate note, the patient continues to have a very swollen and large tongue which is sticking out of her mouth. I'm not exactly sure what's causing this problem. ET tube may be causing some pressure on her tongue. In any rate, the ET tube was removed and the patient will be having a tracheostomy tube inserted today.. The patient remains on Decadron. The patient is currently on Decadron at a dose of 6 mg IV every 12 hours. The patient is also on Lovenox 60 mg every 12 hours and this is held this morning for surgery. The patient has a d-dimer of 2.87 and the rest of the inflammatory markers are still pending for now. She is hemodynamically stable. Fluid balance is in order of -1.6 L. The patient is getting Lasix 40 mg IV every 12 hours pages also on vital high protein at the rate of 10 mL an hour and currently the enteral feeding is on hold awaiting surgery. On today's evaluation of 09/18/2020, the patient is post PEG tube insertion and tracheostomy tube insertion. As noted earlier, the patient had a massively enlarged and swollen and protruding the tongue and on today's evaluation the tongue seems to be smaller and more retracted as the orotracheal tube has been taken out and the patient was given a tracheostomy. Currently she is a trach tube which is a Shiley #8. She is calm and comfortable. She is on a combination of propofol and fentanyl. We're the process of weaning the sedation. She is arousable. She is following commands. She is currently running at propofol at 40 mcg/kg per minute and fentanyl is running at 2 mcg/ kg/h. She stated that she was in pain and essentially intended to drop the propofol and keep the fentanyl for now. She is quite successfully mechanical ventilator. She is currently on assist control mode with a rate of 18 and tidal volume of 350and FiO2 of 40% with a PEEP of 8. The blood gases from today showing a pH of 7.45 with a pCO2 43 and pO2 of 154. The patient is also having a follow-up chest x-ray that showed adequate positioning of the orotracheal tube. There is some limited infiltration of the lung bases bilaterally. There is also a left subclavian triple-lumen catheter. Otherwise, the patient is doing well. She is arousable. She is following some simple commands. The peak airway pressure on the mechanical ventilator is 24. She remains on Decadron 6 mg IV every 12 hours and the patient is also on Lovenox at a dose of 40 mg every 24 hours. On her blood work, the patient has a d-dimer of 1.83, the patient's LDH level is 1080 and a CRP level was not obtained on today's evaluation. As such, COVID-19 pneumonia is table and the patient is post tracheostomy tube inse rtion for the need of a prolonged ventilatory support. As far as enteral feeding, the patient was receiving vital high protein is be restarted within 24 hours a PEG tube insertion. PEG tube exit site is dry clean and intact at this point in time. No fever. Hemodynamically stable. No pressors. ENT was consulted regarding the tongue swelling. We are the process of weaning this patient of sedation. Protest on Levaquin for a few days ago was 0.05. 09/19/2020, the patient is off sedation with propofol and she is on requiring fentanyl at 1.5 mcg/kg per hour and this is only for pain control. she is awake and following commands and answering questions. She is profoundly weak. She again with increasing her fingers and toes. She cannot raise it against gravity. She can move her head. She can blink. Her tongue swelling has improved considerably. She isPost tracheostomy tube insertion and the patient has a #[address]. On today's evaluation, the patient has a assist-control mode rate of 18, tidal volume is at 350, FiO2 is at 40% and a PEEP is currently at 5. The blood gases from today showed a pH of 7.44 with a pCO2 of 41 and pO2 of 107. The chest x-ray from today is showing adequate positioning of the tracheostomy tube. Limited bibasilar pulmonary infiltrates. Findings are essentially stable for now. In terms of inflammatory markers, the d-dimer is down to 3.1 and the LDH level is 1055 and a CRP level is 1.9. Rest of the blood work and electrodes are all within normal limits. She has a PEG tube for which she is getting enteral feeding and nutritional support. She is currently receiving vital high protein at the rate of 30 mL an hour. No abdominal distention. She has not had a bowel movement since 09/11/2020. Her pro-calcitonin level was low. She remains on Lovenox 40 mg subcu every 24 hours. She is also on Decadron 6 mg IV once a day. 09/20/2020, the patient is completely off sedation. She is awake. Extremely weak limited to prolonged hospitalization intubation mechanical ventilation. She is able to wiggle her toes pH is able to communicate. She follows instructions the she also response to commands. She is very much, comfortable. She is laying down comfortably in bed. She is still on a mechanical ventilator. She has a Shiley tracheostomy tube #8. She is currently on a tidal volume of 350 with an FiO2 of 40% and a PEEP of 5 and a rate of 18. Blood gases from today shows a pH of 7.49 with a pCO2 of 40 and pO2 of 126. Chest x-ray from today is showing no significant change. Note that the patient was given a spontanous breathing trial yesterday with a support of 10 and a PEEP of 5. She was able to tolerate it for a total of 30 minutes and that she gets tired and she was placed back on assist control volume cycle mechanical ventilator. There is clearing of the lower lobe pulmonary infiltrates and a tracheostomy tube is in a good location. She is receiving enteral feeding for nutritional support and she is currently on vital high protein at the rate of 46 mL an hour. On her blood work, the inflammatory markers show a decline in the LDH and CRP as noted from today with an LDH of 883 and a CRP of 1.6. Renal function stable. Hemoglobin is at 9.0. No other issues for now. Does have dropped feet bilaterally and the patient has medi boots. The patient has been in a negative fluid balance as the patient is receiving Lasix 40 mg IV every 24 hours. There is significant improvement edema in all 4 extremities. She is also on Decadron 4 mg oral dose as the patient has been in the hospital and was being on steroids for the past 2 weeks. On 09/21/2020 patient seen in follow-up in the intensive care unit, she remains off all sedation, she is following commands, she is awake and alert, she is mouthing words, she is able to raise her arms slightly, and wiggle her toes, however she remains very weak, she has been tolerating pressure support trials, and she currently remains on pressure support of 10 and CPAP of 5, with FiO2 of 40%, and she has been tolerating them very well, is maintaining O2 saturation at or around 96-97% on FiO2 of 40%, her vital signs have been stable, hem odynamically she stable, she is in sinus mechanism, she has had some low-grade fevers, afebrile this morning, blood cultures have shown no growth. Today's labs have been reviewed, normal white count at 8.5, hemoglobin of 8.9, sodium is 133, potassium is 3.5, chloride is 102, CO2 31, BUN of 21 creatinine 0.42, LDH is trending down, and is currently at 793, and CRP is at 1.0. Patient remains on oral Decadron 4 mg daily, current dose of Lovenox is 40 mg daily. Today's chest x-ray shows similar appearing bilateral interstitial opacities. She is receiving nutritional support in the form of vital high protein at goal, with standard water flushes, and patient has been tolerating tube feedings quite well. Patient will receive a PICC line today, her central line will be discontinued, discharge planning is in progress for discharge to LTAC facility On 09/22/2020 patient seen in follow-up in the intensive care unit, she is awake and alert, she is following commands, she remains very weak, she is mouthing words, answering appropriately, seems to be oriented 3, she is trached to the ventilator, and she has tolerated close to 36 hours of pressure-support trials from Monday at 9:30 in the morning through Monday at 5:30 in the evening, and was placed on assist-control mode of ventilation last night in view of respiratory fatigue, this morning she was on assist-control ventilation with a rate of 18, tidal 350, FiO2 of 40% and PEEP of 5, this morning's blood gas showed pO2 of 139, pCO2 40, and pH of 7.49, patient was placed back on pressure- support of 10, a CPAP of 5, FiO2 of 40%, tolerating it very well, her only IV drip this point I'm seeing in 20 ML per hour, she was found to have some drainage around the PEG tube site and some redness, and she was placed on Levaquin empirically, CT of the abdomen and pelvis showed mild edema within the soft tissues about the PEG tube insertion site, with possibility of cellulitis, and lobular contour of the liver which may represent early cirrhosis. Lung windows showed a patchy reticular and groundglass opacities within the lower lungs with consolidation in the left lower lobe related to COVID-19 pneumonia. Chest x-ray showed very mild interstitial infiltrates. Her CBC shows white blood cell count of 9.7, hemoglobin of 9.3, sodium is 132, potassium is 3.5, chloride is 101, CO2 31, BUN 20, creatinine 0.4, LDH of 816, CRP of 1.4. Blood cultures have shown no growth. Patient is currently on 4 mg of oral Decadron and daily basis, and prophylactic dose of Lovenox, she also continues on daily dose of IV Lasix, she is in -866 mL fluid balance over the last 24 hours, she has had no acute events overnight, social work is following, and patient is appropriate for transfer to LTAC facility for further weaning and physical therapy, and is currently awaiting insurance authorization. Objective - Vital Signs Vital signs: Vital Signs Temp 98.9 F 09/22/20 12:00 Pulse 90 09/22/20 12:00 Resp 24 09/22/20 12:00 BP 136/67 09/22/20 06:00 Pulse Ox 98 09/22/20 12:00 Intake & Output 09/21/20 09/22/20 09/22/20 18:59 06:59 18:59 Intake Total 1175 964 580 Output Total 2480 525 1190 Balance -1305 439 -610 Weight 72.2 kg 72.4 kg Intake: IV 156 256 138 Sodium Chloride 0.9% 1, 120 000 ml @ 20 mls/hr IV . Q24H [facility] Rx#:[id number] Sodium Chloride 0.9% 500 220 120 ml 500 ml @ 20 mls/hr IV .Q24H [facility] Rx#:[id number] pressure bag 36 36 18 Intake, IV Titration 180 20 Amount Levofloxacin 500Mg-D5w 100 Pmx 500 mg In Dextrose/ Water 1 100ml.bag @ 100 mls/hr IVPB Q24H [facility] Rx#: [id number] Sodium Chloride 0.9% 500 80 20 ml 500 ml @ 20 mls/hr IV .Q24H [facility] Rx#:[id number] Tube Feeding 689 598 322 Other 150 90 120 Output: Urine 2480 525 1190 Other: Voiding Method Indwelling Catheter Indwelling Catheter Indwelling Catheter # Bowel Movements 1 1 ABP, PAP, CO, CI - Last Documented Arterial Blood Pressure 125/53 - Exam GENERAL EXAM: Awake and alert, 65-year-old white female trached to the ventilator, on pressure-support of 10, and CPAP of 5, and FiO2 of 40% of 96%, comfortable in no apparent distress. HEAD: Normocephalic/atraumatic. EYES: Normal reaction of pupils, equal size. Conjunctiva pink, sclera white. NOSE: Clear with pink turbinates. THROAT: No erythema or exudates. NECK: No masses, no JVD, no thyroid enlargement, no adenopathy. Midline trache ostomy patient has a Shiley tube in place, and it is connected to the ventilator patient is currently on pressure-support mode of ventilation CHEST: No chest wall deformity. Symmetrical expansion. LUNGS: Equal air entry with no crackles, wheeze, rhonchi or dullness. CVS: Regular rate and rhythm, normal S1 and S2, no gallops, no murmurs, no rubs ABDOMEN: Soft, nontender. No hepatosplenomegaly, normal bowel sounds, no guarding or rigidity. PEG tube is in place and patient is receiving nutritional support with tube feedings EXTREMITIES: No clubbing, no edema, no cyanosis, 2+ pulses and upper and lower extremities. MUSCULOSKELETAL: Muscle strength and tone normal. SPINE: No scoliosis or deformity SKIN: No rashes CENTRAL NERVOUS SYSTEM: Awake and alert, oriented 3, is trached, she is able to mouth words, she is responding appropriately to verbal command, No focal deficits, tone is normal in all 4 extremities. - Labs CBC & Chem 7: 09/22/20 04:57 09/22/20 04:57 Labs: Abnormal Lab Results - Last 24 Hours (Table) 09/21/20 09/21/20 09/22/20 Range/Units 17:34 23:49 04:57 RBC 3.10 L (3.80-5.40) m/uL Hgb 9.3 L (11.4-16.0) gm/dL Hct 27.4 L (34.0-46.0) % Neutrophils # 8.1 H (1.3-7.7) k/uL Lymphocytes # 0.8 L (1.0-4.8) k/uL ABG pH (7.35-7.45) ABG pO2 (83-108) mmHg ABG HCO3 (21-25) mmol/L ABG Total CO2 (19-24) mmol/L ABG O2 Saturation (94-97) % Sodium (137-145) mmol/L Carbon Dioxide (22-30) mmol/L BUN (7-17) mg/dL Creatinine (0.52-1.04) mg/dL Glucose (74-99) mg/dL POC Glucose (mg/dL) 175 H 108 H (75-99) mg/dL Lactate Dehydrogenase (313-618) U/L C-Reactive Protein (<1.0) mg/dL 09/22/20 09/22/20 09/22/20 Range/Units 04:57 05:57 06:00 RBC (3.80-5.40) m/uL Hgb (11.4-16.0) gm/dL Hct (34.0-46.0) % Neutrophils # (1.3-7.7) k/uL Lymphocytes # (1.0-4.8) k/uL ABG pH 7.49 H (7.35-7.45) ABG pO2 139 H (83-108) mmHg ABG HCO3 30 H (21-25) mmol/L ABG Total CO2 32 H (19-24) mmol/L ABG O2 Saturation 99.2 H (94-97) % Sodium 132 L (137-145) mmol/L Carbon Dioxide 31 H (22-30) mmol/L BUN 20 H (7-17) mg/dL Creatinine 0.44 L (0.52-1.04) mg/dL Glucose 158 H (74-99) mg/dL POC Glucose (mg/dL) 181 H (75-99) mg/dL Lactate Dehydrogenase 816 H (313-618) U/L C-Reactive Protein 1.4 H (<1.0) mg/dL 09/22/20 Range/Units 11:46 RBC (3.80-5.40) m/uL Hgb (11.4-16.0) gm/dL Hct (34.0-46.0) % Neutrophils # (1.3-7.7) k/uL Lymphocytes # (1.0-4.8) k/uL ABG pH (7.35-7.45) ABG pO2 (83-108) mmHg ABG HCO3 (21-25) mmol/L ABG Total CO2 (19-24) mmol/L ABG O2 Saturation (94-97) % Sodium (137-145) mmol/L Carbon Dioxide (22-30) mmol/L BUN (7-17) mg/dL Creatinine (0.52-1.04) mg/dL Glucose (74-99) mg/dL POC Glucose (mg/dL) 204 H (75-99) mg/dL Lactate Dehydrogenase (313-618) U/L C-Reactive Protein (<1.0) mg/dL Assessment and Plan Plan: Assessment: #1. Acute hypoxic respiratory failure related to acute COVID 19 pneumonia, patient was admitted to the hospital on 09/05/2020, transfer to the intensive care unit on 09/07/2020 and intubated on 09/07/2020, will receive a dose of Actemra 1, and, convalescent plasma 1 on 09/07/2020. Patient received a tracheostomy tube and PEG tube on 09/17/2020, without complications, patient is currently off sedation, following commands, and currently on pressure-support with pressure of 10 and CPAP of 5, tolerating them well so far #2. Elevated inflammatory markers including LDH and a d-dimer, which are improving and patient is currently on Decadron 4 mg daily, and at prophylactic dose of Lovenox #3. Swollen and extremely bulky and enlarged tongue, the possibility of ALLERGIC reaction and possibility of angioedema consider possibility of an stomach obstruction and secondary swelling and the swelling has improved, and patient had the orotracheal ET tube removed and patient currently has a tracheostomy tube in place and the tongue swelling has pretty much subsided #4. Retention, currently better controlled, and she is on cognition and Norvasc on Lopressor and hydralazine #5. Increased inflammatory markers, improving #6. Hypothyroidism #6. Never smoker #7. IBS #8. 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 Hemodynamically stable Continue current dose of prophylactic Lovenox in the Decadron is being weaned and is currently at 4 mg daily Physical therapy to continue working on passive range of motion Chest x-ray and labs reviewed Clinically stable, oxygenation has improved and patient has been breathing comfortably tolerating pressure-support trials and maintaining O2 saturations above 92-94% on FiO2 of 40% PICC line was placed Discharge to LTAC facility once the insurance authorization is obtained I performed a history & physical examination of the patient and discussed their management with my nurse practitioner, Danyell Larsen. I reviewed the nurse practitioner's note and agree with the documented findings and plan of care. Lung sounds are positive for diminished breath sounds. The findings and the i mpression was discussed with the patient. I attest to the documentation by the nurse practitioner. Time with Patient: Greater than 30
[2020-09-22] MEDS: SODIUM CHLORIDE 0.9% 500 ML 500 ML IV SCH (16:18)
[2020-09-22] MEDS: LEVOFLOXACIN 500MG-D5W PMX 500 MG in DEXTROSE/WATER 1 100ML.BAG IVPB SCH (16:18)
[2020-09-22 18:25] LABS: Glucose,Whole Blood 172 mg/dL (75-99)
[2020-09-22] MEDS: ASPIRIN 81 MG PO SCH (20:46)
[2020-09-22] MEDS: MELATONIN 5 MG TABLET PO SCH (20:46)
[2020-09-22] MEDS: MULTIVITAMINS, THERA 1 EACH TAB PO SCH (20:46)
[2020-09-22] MEDS: LORATADINE 10 MG TAB PO SCH (20:46)
[2020-09-22] MEDS: ATORVASTATIN 20 MG TAB PO SCH (20:46)
[2020-09-22] MEDS: MONTELUKAST 10 MG TAB PO SCH (20:46)
--- NOTE | 2020-09-22 22:02 | P.PN ---
Subjective 65-year-old female , whose PCP is Dr. Haq, states she's been exposed to Covid 19 from both her son and daughter who states she's had symptoms similar today for last 8 days which include nausea vomiting recently diarrhea rhinorrhea no overt shortness of breath she does have a cough also a fever and generalized weakness. decreased oral intake. She is here just because she is profoundly weak at this time. Not able to keep fluids down. Pt Admitted with COVID 19 pneumonia. Acute hypoxic respiratory failure. Patient was given intubated and currently status post tracheostomy and PEG tube placement with plan for her to go to LTAC facility once insurance approval obtained Objective - Vital Signs Vital signs: Vital Signs Temp 98.9 F 09/22/20 12:00 Pulse 90 09/22/20 12:00 Resp 24 09/22/20 12:00 BP 136/67 09/22/20 06:00 Pulse Ox 98 09/22/20 12:00 Intake & Output 09/21/20 09/22/20 09/22/20 18:59 06:59 18:59 Intake Total 1175 964 580 Output Total 2480 525 1190 Balance -1305 439 -610 Weight 72.2 kg 72.4 kg Intake: IV 156 256 138 Sodium Chloride 0.9% 1, 120 000 ml @ 20 mls/hr IV . Q24H [facility] Rx#:[id number] Sodium Chloride 0.9% 500 220 120 ml 500 ml @ 20 mls/hr IV .Q24H [facility] Rx#:[id number] pressure bag 36 36 18 Intake, IV Titration 180 20 Amount Levofloxacin 500Mg-D5w 100 Pmx 500 mg In Dextrose/ Water 1 100ml.bag @ 100 mls/hr IVPB Q24H [facility] Rx#: [id number] Sodium Chloride 0.9% 500 80 20 ml 500 ml @ 20 mls/hr IV .Q24H [facility] Rx#:[id number] Tube Feeding 689 598 322 Other 150 90 120 Output: Urine 2480 525 1190 Other: Voiding Method Indwelling Catheter Indwelling Catheter Indwelling Catheter # Bowel Movements 1 1 ABP, PAP, CO, CI - Last Documented Arterial Blood Pressure 125/53 - Exam -GENERAL: The patient is alert and awake and oriented , follows commands HEENT: Pupils are round and equally reacting to light. EOMI. No scleral icterus. No conjunctival pallor. Normocephalic, atraumatic. No pharyngeal erythema. No thyromegaly. CARDIOVASCULAR: S1 and S2 present. No murmurs, rubs, or gallops. PULMONARY: Chest is clear to auscultation, no wheezing or crackles ABDOMEN: Soft, nontender, nondistended, normoactive bowel sounds. No palpable organomegaly. MUSCULOSKELETAL: No joint swelling or deformity. EXTREMITIES: No cyanosis, clubbing, or pedal edema. NEUROLOGICAL: Gross neurological examination did not reveal any focal deficits. SKIN: No rashes. no petechiae. - Labs CBC & Chem 7: 09/22/20 04:57 09/22/20 04:57 Labs: Abnormal Lab Results - Last 24 Hours (Table) 09/21/20 09/21/20 09/22/20 Range/Units 17:34 23:49 04:57 RBC 3.10 L (3.80-5.40) m/uL Hgb 9.3 L (11.4-16.0) gm/dL Hct 27.4 L (34.0-46.0) % Neutrophils # 8.1 H (1.3-7.7) k/uL Lymphocytes # 0.8 L (1.0-4.8) k/uL ABG pH (7.35-7.45) ABG pO2 (83-108) mmHg ABG HCO3 (21-25) mmol/L ABG Total CO2 (19-24) mmol/L ABG O2 Saturation (94-97) % Sodium (137-145) mmol/L Carbon Dioxide (22-30) mmol/L BUN (7-17) mg/dL Creatinine (0.52-1.04) mg/dL Glucose (74-99) mg/dL POC Glucose (mg/dL) 175 H 108 H (75-99) mg/dL Lactate Dehydrogenase (313-618) U/L C-Reactive Protein (<1.0) mg/dL 09/22/20 09/22/20 09/22/20 Range/Units 04:57 05:57 06:00 RBC (3.80-5.40) m/uL Hgb (11.4-16.0) gm/dL Hct (34.0-46.0) % Neutrophils # (1.3-7.7) k/uL Lymphocytes # (1.0-4.8) k/uL ABG pH 7.49 H (7.35-7.45) ABG pO2 139 H (83-108) mmHg ABG HCO3 30 H (21-25) mmol/L ABG Total CO2 32 H (19-24) mmol/L ABG O2 Saturation 99.2 H (94-97) % Sodium 132 L (137-145) mmol/L Carbon Dioxide 31 H (22-30) mmol/L BUN 20 H (7-17) mg/dL Creatinine 0.44 L (0.52-1.04) mg/dL Glucose 158 H (74-99) mg/dL POC Glucose (mg/dL) 181 H (75-99) mg/dL Lactate Dehydrogenase 816 H (313-618) U/L C-Reactive Protein 1.4 H (<1.0) mg/dL 09/22/20 Range/Units 11:46 RBC (3.80-5.40) m/uL Hgb (11.4-16.0) gm/dL Hct (34.0-46.0) % Neutrophils # (1.3-7.7) k/uL Lymphocytes # (1.0-4.8) k/uL ABG pH (7.35-7.45) ABG pO2 (83-108) mmHg ABG HCO3 (21-25) mmol/L ABG Total CO2 (19-24) mmol/L ABG O2 Saturation (94-97) % Sodium (137-145) mmol/L Carbon Dioxide (22-30) mmol/L BUN (7-17) mg/dL Creatinine (0.52-1.04) mg/dL Glucose (74-99) mg/dL POC Glucose (mg/dL) 204 H (75-99) mg/dL Lactate Dehydrogenase (313-618) U/L C-Reactive Protein (<1.0) mg/dL Assessment and Plan Assessment: -Acute severe bilateral COVID 19 pneumonia, improving -Acute severe hypoxic respiratory failure, she is status post tracheostomy tube and PEG tube on 09/17/2020 -Acute delirium and acute metabolic encephalopathy from COVID 19 pneumonia, improved and currently she is alert and awake. -Hypothyroidism; -Essential Hypertension -Hyperlipidemia -Asthma -GERD - irritable bowel syndrome: -Diabetes mellitus type 2 -Obesity BMI 31.4 Plan: This is a pleasant 65 years old female who presents with Covid pneumonia and hypoxia, she is status post tracheostomy tube and PEG tube, awake, she is going to LTAC upon discharge. Surgery team and Pulmonary/critical care team on the case and follow-up with a recommendation. Pt is on vitamin c, vitamin D and zinc, also on dexamethasone, lovenex and Levaquin . DVT and GI prophylaxis
[2020-09-22 23:50] LABS: Glucose,Whole Blood 110 mg/dL (75-99)
[2020-09-23] MEDS: INSULIN ASPART (NovoLOG) 100 UNIT/ML VIAL SQ SCH ×4 (00:59→18:49)
[2020-09-23 04:47] LABS: Basophils % (A) 0 %; Eosinophils % (A) 0 %; HCT 23.7 % (34.0-46.0); HGB 8.1 gm/dL (11.4-16.0); Lymphocytes # (A) 1.4 k/uL (1.0-4.8); Lymphocytes % (A) 16 %; MCH 30.3 pg (25.0-35.0); MCHC 34.2 g/dL (31.0-37.0); MCV 88.5 fL (80.0-100.0); Mean Platelet Volume 7.9; Monocytes # (A) 0.6 k/uL (0-1.0); Monocytes % (A) 7 %; Neutrophils # (A) 6.4 k/uL (1.3-7.7); Neutrophils % (A) 74 %; Platelet Count 209 k/uL (150-450); RBC 2.68 m/uL (3.80-5.40); RDW 14.9 % (11.5-15.5); WBC 8.6 k/uL (3.8-10.6)
[2020-09-23 05:05] LABS: African American GFR (CKD) >90 (>60 ml/min/1.73 sqM); Anion Gap 3 mmol/L; Blood Urea Nitrogen 22 mg/dL (7-17); C Reactive Protein 1.7 mg/dL (<1.0); Calcium 8.2 mg/dL (8.4-10.2); Carbon Dioxide 29 mmol/L (22-30); Chloride 104 mmol/L (98-107); Glucose 136 mg/dL (74-99); LDH 652 U/L (313-618); Non-African American GFR(CKD) >90 (>60 ml/min/1.73 sqM); Potassium 3.4 mmol/L (3.5-5.1); Sodium 136 mmol/L (137-145)
[2020-09-23 05:17] LABS: ABG Base Excess 5.8 mmol/L; ABG HCO3 29 mmol/L (21-25); ABG Oxygen Saturation 98.9 % (94-97); ABG PCO2 40 mmHg (35-45); ABG PH 7.47 (7.35-7.45); ABG PO2 133 mmHg (83-108); ABG TCO2 31 mmol/L (19-24); Allen Test Performed? Yes
[2020-09-23] MEDS: LEVOTHYROXINE 75 MCG TAB PO SCH (05:28)
[2020-09-23] MEDS: POTASSIUM BICARBONATE/CIT AC 20 MEQ TABLET.EFF NG-TUBE SCH ×2 (05:28→07:05)
[2020-09-23 05:33] LABS: Glucose,Whole Blood 148 mg/dL (75-99)
[2020-09-23] MEDS: ALBUTEROL HFA INHALER INHALATION SCH ×4 (08:24→20:32)
[2020-09-23] MEDS: CITALOPRAM HYDROBROMIDE 20 MG TAB PO SCH (08:25)
[2020-09-23] MEDS: ASCORBIC ACID 500 MG TAB PO SCH (08:25)
[2020-09-23] MEDS: CHLORHEXIDINE GLUCONATE 15 ML CUP MUCOUS MEM SCH ×2 (08:25→21:33)
[2020-09-23] MEDS: ZINC SULFATE 220 MG CAP PO SCH (08:26)
[2020-09-23] MEDS: hydrALAZINE HCL 50 MG TAB PO SCH ×3 (08:26→21:34)
[2020-09-23] MEDS: amLODIPine 5 MG TAB PO SCH ×2 (08:26→08:32)
[2020-09-23] MEDS: METOPROLOL TARTRATE 50 MG TAB PO SCH ×4 (08:26→21:34)
[2020-09-23] MEDS: dexAMETHasone 4 MG TAB PO SCH (08:26)
[2020-09-23] MEDS: CHOLECALCIFEROL 25 MCG (1000 IU) TABLET PO SCH (08:26)
[2020-09-23] MEDS: PANTOPRAZOLE 40 MG/10 ML VIAL IVP SCH ×2 (08:29→21:34)
[2020-09-23] MEDS: ENOXAPARIN 40 MG/0.4 ML SYRINGE SQ SCH (08:29)
[2020-09-23] MEDS: FUROSEMIDE 10 MG/ML 4 ML VIAL IV SCH (08:30)
[2020-09-23] MEDS ORDERED: LIDOCAINE 1% INJ 10MG/ML (20 ML MDV) ONE (11:40)
[2020-09-23 11:41] VITALS: BMI 32.8
[2020-09-23] MEDS: HYDROmorphone 0.5 MG/0.5 ML SYRINGE IVP PRN ×2 (11:52→21:33)
--- NOTE | 2020-09-23 12:01 | P.PCN ---
Date of Procedure: 09/23/20 Procedure(s) Performed: PREOPERATIVE DIAGNOSIS: Abdominal wall abscess POSTOPERATIVE DIAGNOSIS: Same PROCEDURE: Excision and drainage abdominal wall abscess SURGEON: Servando EBL: Deborah ANESTHESIA: Local COMPLICATIONS: None OPERATIVE PROCEDURE: Patient with a area purulence around her PEG tube site. Some fluctuance and mild erythema seen on today's exam. Area prepped with ChloraPrep. Bolster loosened to about 10 cm. Hub of PEG tube able to easily pass in and out. Area of fluctuance was inferiorly. Skin localized with lidocaine. Less than 1 cm incision made inferiorly. Cotton-tipped gauze used to palpate the tissue around the feeding tube. Small amount of additional purulence evacuated. Cultures were retaken this morning. Wound was packed with quarter-inch iodoform gauze. DISPOSITION: Stable. Will irrigate this wound later today with hydrogen peroxide. Discussed findings and plan with the patient's by phone.
--- NOTE | 2020-09-23 12:08 | P.DS ---
Providers Date of admission: 09/05/20 21:59 Attending physician: Juan Peace Consults: 09/06/20 14:19 Consult Physician Routine Consulting Provider: Malinda Bazzi Consult Reason/Comments: Acute hypoxic respiratory failure/COVID 19 pneumonia Do you want consulting provider notified?: Yes 09/07/20 20:59 Consult Physician Routine Consulting Provider: Andrew Hawkins Consult Reason/Comments: Abnormal troponin Do you want consulting provider notified?: Yes 09/16/20 09:25 Consult Physician Routine Consulting Provider: David Al Consult Reason/Comments: trach and peg Do you want consulting provider notified?: Yes 09/17/20 15:51 Consult Physician Routine Consulting Provider: Vidal Mccoy Consult Reason/Comments: Tongue swelling Do you want consulting provider notified?: Already Contacted Primary care physician: Uriah Haq [facility] Course: Diagnoses: -Acute severe bilateral COVID 19 pneumonia, improving -Acute severe hypoxic respiratory failure, she is status post tracheostomy tube and PEG tube on 09/17/2020 -Acute delirium and acute metabolic encephalopathy from COVID 19 pneumonia, improved and currently she is alert and awake. -Acute PEG tube site cellulitis. Put on Levaquin. -mildly abnormal troponin, stock lifter recommended conservative medical management and normal LV function per echo -Hypothyroidism -Essential Hypertension -Hyperlipidemia -Asthma -GERD - irritable bowel syndrome: -Diabetes mellitus type 2 -Obesity BMI 31.4 Hospital course: 65-year-old female , whose PCP is Dr. Haq, states she's been exposed to Covid 19 from both her son and daughter who states she's had smiilar symptoms for last 8 days which include nausea vomiting recently diarrhea rhinorrhea no overt shortness of breath she does have a cough also a fever and generalized weakness. decreased oral intake. Patient found to have acute hypoxic respiratory failure secondary to bilateral acute Covid 19 pneumonia, patient was admitted to the hospital on 09/05/2020, transfer to the intensive care unit on 09/07/2020 and intubated on 09/07/2020, received a dose of Actemra 1, and convalescent plasma 1 on 09/07/2020. Patient received a tracheostomy tube and PEG tube on 09/17/2020, without complications, Currently patient awake and alert and follows commands. She has been followed closely by pulmonary/critical care team. Surgery team did the tracheostomy and PEG tube placement Currently patient is medically stable and she was cleared by all consultants including the pulmonary/critical care team to be transferred to for LTAC facility He would be discharged on short course of dexamethasone, oral Lasix, vitamin C, vitamin D and zinc. Also prophylactic dose of Lovenox, multiple blood pressure medication including hydralazine, metoprolol and Lasix. Her blood pressure is expected to improve with stopping steroids dexamethasone. Also levofloxacin, short oral course while monitoring her cellulitis in the abdomen around PEG tube. Problems and management plan were discussed with the patient and he verbalized understanding and acceptance Patient was found stable and can be discharged home however he needs follow-up as an outpatient. Patient was instructed to follow up with PCP to [facility] within one week and patient agrees. Patient recommended to follow-up with Dr. Leon in 3-4 weeks, surgeon Dr. Mireles went 2 weeks and stock lifter Dr. Bach in 2-4 weeks Physical exam -Gen: patient is a AAOx3, no distress. Status post tracheostomy. Follow command CVS: S1-S2, RRR, no murmur Lungs: B/L CTA, no wheezing -Abdomen: soft, no distention, no tenderness, positive bowel sounds. Status post PEG tube, improving cellulitis around PEG opening Extremity: no leg edema or induration Time spent more than 35 minutes Patient Condition at Discharge: Fair Plan - Discharge Summary New Discharge Prescriptions: New dexAMETHasone ORAL [Hexadrol] 4 mg PO DAILY 2 Days #2 tab Furosemide [Lasix] 40 mg PO DAILY #30 tablet Metoprolol Tartrate [Lopressor] 50 mg PO TID tab Enoxaparin [Lovenox] 40 mg SQ DAILY syringe INSULIN ASPART (NovoLOG) [NovoLOG (formulary)] 0 unit SQ Q6H vial Pantoprazole Sodium [Protonix] 40 mg PO BID #60 tablet. Albuterol Inhaler [Ventolin Hfa Inhaler] 4 puff INHALATION RT-QID PRN puff PRN Reason: Shortness Of Breath Or Wheezing Cholecalciferol [Vitamin D3 (25 Mcg = 1000 Iu)] 125 mcg PO DAILY tablet hydrALAZINE HCL [Apresoline] 100 mg PO TID tab Lactulose [Cephulac] 30 gm PO BID PRN ml PRN Reason: Constipation Levofloxacin [Levaquin] 500 mg PO DAILY 7 Days #7 tab Zinc Sulfate [Orazinc] 220 mg PO DAILY cap Chlorhexidine Gluconate [Peridex] 15 ml MUCOUS MEM BID ml Ascorbic Acid [Vitamin C] 1,000 mg PO DAILY tab Continue Rosuvastatin [Crestor] 10 mg PO HS Montelukast [Singulair] 10 mg PO HS Levothyroxine Sodium [Synthroid] 75 mcg PO MOTUWETHFR Citalopram Hydrobromide [CeleXA] 40 mg PO DAILY Aspirin EC [Ecotrin Low Dose] 81 mg PO HS amLODIPine [Norvasc] 5 mg PO DAILY@1400 Levothyroxine Sodium [Synthroid] 37.5 mcg PO SA Omeprazole 20 mg PO BID Fexofenadine HCl [Shamika Allergy] 180 mg PO HS Changed Melatonin 5 mg PO HS PRN #0 PRN Reason: Insomnia Discontinued Metoprolol Tartrate [Lopressor] 100 mg PO DAILY metFORMIN HCL [Glucophage] 500 mg PO BID lisinopriL [Prinivil] 5 mg PO HS Multivitamins, Thera [Multivitamin (formulary)] 1 tab PO HS lisinopriL [Zestril] 10 mg PO DAILY Discharge Medication List Levothyroxine Sodium [Synthroid] 75 mcg PO MOTUWETHFR 05/06/15 [History] Montelukast [Singulair] 10 mg PO HS 05/06/15 [History] Rosuvastatin [Crestor] 10 mg PO HS 05/06/15 [History] Aspirin EC [Ecotrin Low Dose] 81 mg PO HS 09/05/20 [History] Citalopram Hydrobromide [CeleXA] 40 mg PO DAILY 09/05/20 [History] Fexofenadine HCl [Shamika Allergy] 180 mg PO HS 09/05/20 [History] Levothyroxine Sodium [Synthroid] 37.5 mcg PO SA 09/05/20 [History] Omeprazole 20 mg PO BID 09/05/20 [History] amLODIPine [Norvasc] 5 mg PO DAILY@1400 09/05/20 [History] Albuterol Inhaler [Ventolin Hfa Inhaler] 4 puff INHALATION RT-QID PRN puff 09/23/20 [Rx] Ascorbic Acid [Vitamin C] 1,000 mg PO DAILY tab 09/23/20 [Rx] Chlorhexidine Gluconate [Peridex] 15 ml MUCOUS MEM BID ml 09/23/20 [Rx] Cholecalciferol [Vitamin D3 (25 Mcg = 1000 Iu)] 125 mcg PO DAILY tablet 09/23/20 [Rx] Enoxaparin [Lovenox] 40 mg SQ DAILY syringe 09/23/20 [Rx] Furosemide [Lasix] 40 mg PO DAILY #30 tablet 09/23/20 [Rx] INSULIN ASPART (NovoLOG) [NovoLOG (formulary)] 0 unit SQ Q6H vial 09/23/20 [Rx] Lactulose [Cephulac] 30 gm PO BID PRN ml 09/23/20 [Rx] Levofloxacin [Levaquin] 500 mg PO DAILY 7 Days #7 tab 09/23/20 [Rx] Melatonin 5 mg PO HS PRN #0 09/23/20 [Rx] Metoprolol Tartrate [Lopressor] 50 mg PO TID tab 09/23/20 [Rx] Pantoprazole Sodium [Protonix] 40 mg PO BID #60 tablet.dr 09/23/20 [Rx] Zinc Sulfate [Orazinc] 220 mg PO DAILY cap 09/23/20 [Rx] dexAMETHasone ORAL [Hexadrol] 4 mg PO DAILY 2 Days #2 tab 09/23/20 [Rx] hydrALAZINE HCL [Apresoline] 100 mg PO TID tab 09/23/20 [Rx] Follow up Appointment(s)/Referral(s): David Al MD [Medical Doctor] - 1 Week (general surgeon ) Alejandro aHq MD [Primary Care Provider] - 1-2 days Cheo Leon DO [Doctor of Osteopathic Medicine] - 4 Weeks (tipple supervisor )
--- NOTE | 2020-09-23 12:52 | P.PN ---
Subjective Progress Note Date: 09/23/20 Principal diagnosis: Nausea, vomiting, diarrhea, weakness 65-year-old white female patient of Dr. Haq with past medical history of hypertension, hypothyroidism, IBS, hiatal hernia, renal disorder, who presented to the emergency department on 09/05/2020 with symptoms of nausea, vomiting, diarrhea, she reported some cough, fever and generalized weakness, but no overt shortness of breath. Patient had exposure to COVID 19 from her son and daughter. Patient had decreased oral intake, she came in with profound generalized weakness and not being able to keep fluids down. Chest x-ray showed bilateral patchy airspace pneumonia, COVID 19 PCR was positive. Patient was lymphopenic with lymphocytic 0.9, white blood cell count is 3.5, hemoglobin is 12.5, d-dimer 0.61, troponin was less than 0.012, pro calcitonin level was 0.07. LDH was 1550, CRP is 130.8, ferritin level is 337.5. Presentation patient was severely hypoxic, with O2 saturations in the low 80s on 100% FiO2. Blood gas was obtained showing pO2 of 44, pCO2 of 36, pH of 7.46, patient was intubated and placed on mechanical ventilator. She is currently sedated and paralyzed, and on assist control mode of ventilation with a rate of 28, tacrolimus 400, FiO2 100%, and PEEP of 14. This morning blood gases showed pO2 of 50, pCO2 36, and pH of 7.44. Currently patient sedated and paralyzed on [facility] ventilator. 0.9 at 130 in the per hour, and Nimbex is at 2 mics per kilo per minute, Diprivan is a 50 mics per kilo per minute, and fentanyl drip is currently is 1 mcg/kg/m. Patient has been started on IV steroids 60 mg every 6 hours of Solu-Medrol, she is on Lovenox 40 mg daily. She'll be given a dose of convalescent plasma and she is awaiting a dose of Tocili. Follow-up chest x-ray today shows increased bilateral patchy opacities, and trace right pleural effusion. CTA chest was completed showing no evidence of pulmonary embolism. On 09/08/2020 patient seen in follow-up in the intensive care units. She remains sedated, intubated, currently on assist control with a rate of 20s, tidal volume is 450, FiO2 70%, and PEEP of 18, this morning blood gases show pO2 of 63, pCO2 33, pH is 7.38. Patient is currently on 0.9 at 130 and no per hour, Diprivan is a 35 mics per kilo per minute, fentanyl drip is at 1 adam per kilo per minute, and Nexium is at 1.45 mics per kilo per minute. She is noted to be hypothermic early this morning with a temp of 93.4F. White blood cell count is 5.4, hemoglobin is 8.8, facet, 0.8, d-dimer is 1.67, sodium is 139, potassium is 3.3, chloride is 114, CO2 is 19, BUN is 13, creatinine 0.53, CRP is 216, AST is 40, ALT is 19, alkaline phosphatase is 80, troponin was less than 0.012. LDH is pending today. Progesterone level was negative at 0.07, urinalysis showed no evidence of infection. Blood cultures were negative. She remains on Lovenox 40 mg twice daily, IV Solu-Medrol 60 g every 6 hours, she received 480 mg of Tocilizumab. Received 1 unit of convalescent plasma. She is receiving nutritional support in the form of vital HP at 20 with a goal of 29. Has been tolerating tube feedings, fluid boluses were given yesterday, she still continues on 0.9 NS at 130 ML per hour and her urine output is marginal, and patient will receive additional liter fluid bolus On 09/14/2020 and seeing this patient for a follow-up as the patient is currently intubated on a mechanical ventilated with hypoxic respiratory failure due to COVID 19 related pneumonia and respiratory failure. The patient was intubated on 09/07/2020 and the patient has been treated with a convalescent plasma and received a dose of Actemra and the patient is currently on steroids. On today's evaluation, the patient remains sedated and the patient is currently on a combination of propofol 60 mics /kg per minute and the patient on fentanyl at 3 mcg/kg/h. The patient was also paralyzed and the paramedics was discontinued yesterday at around 10:00. Since then the patient has been off paralytics.. The patient remains on a mechanical ventilator on assist control mode at the rate of 28 with a tidal volume of 400 and FiO2 of 50% with a PEEP of 15. The patient blood gases is still pending from this morning.Chest x-ray showing diffuse bilateral pulmonary infiltrate, and the infiltrates are worse in the right lower lobe compared to the left although there is bilateral pulmonary infiltrates. The patient's subclavian triple-lumen catheter on the left and the patient has an ET tube that that being around 2 cm above the jason. and the patient remains on Lovenox 60 mg every 24 hours. The patient is receiving NovoLog insulin for size. Coverage blood sugar control. The patient is also utilizing clevidipine drip for blood pressure control at 2 mg an hour she is on Norvasc 5 mg by mouth twice a day. The patient is also on metoprolol 100 mg by mouth twice a day. The patient is on Zestril 20 mg by mouth twice a day for blood pressure control. The patient is on levothyroxine 75 g and 37.5 g orally on a daily basis. The patient is receiving enteral feeding for nutritional support. The most recent CRP level is at 9, the most recent LDH level was 1750. D-dimer was elevated at 8.2. Hypertension, hypothyroidism, IBS, hiatal hernia, and the patient initially presented to us on 09/05/2020 with gastrointestinal symptoms and shortness of breath. the morning labs show normal electrolytes, no other abnormalities are noted. The patient remains on IV Solu-Medrol 40 mg every 12 hours. Lovenox is a 60 mg every 12 hours and the patient d-dimer was 8.21. The peak airway pressures around 41. Static pressure is 33-34. On 09/15/2020, the patient remains intubated on mechanical ventilator. The patient was intubated for Covid 19 related pneumonia. The patient was intubated on 09/07/2020. The patient currently is sedated with propofol which is running at 60 mcg/kg per minute and the fentanyl is also running at 3 mcg/kg/h. The patient is off paralytics for now. Meanwhile, the patient remains an assist- control mode of ventilation which is essentially the same as yesterday. The patient is on a tidal volume of 350 with an FiO2 of 50% and a PEEP of 13 and the rate of 28. The peak airway pressures around 37 anesthetic pressures 34. The patient continues to have a very enlarged and swollen tongue which is nonnecrotic at this point in time. The blood gases from this morning shows a pH of 7.49 with a pCO2 of 38 and a pO2 of 90. Chest x-ray still pending for now. The chest x-ray from yesterday was still showing diffuse bilateral pulmonary in filtrates. Meanwhile, the patient is still on clevidipine drip for blood pressure control. Her blood pressure remains quite elevated. She is running at 4 mg an hour and the patient is also on a combination of Norvasc a total of 10 mg by mouth daily, metoprolol 100 mg by mouth twice a day, Zestril 20 mg by mouth twice a day. She is still receiving Solu-Medrol 40 mg IV every 8 hours. Anticoagulation is with Lovenox 60 mg by subcu twice a day. On her blood work, she has a normal renal function with a BUN of 27 and creatinine of 0.5. Electrolytes are normal. White count of 12.7 with a hemoglobin of 9.8. The liver function tests are essentially within normal limits. Hemodynamically stab le. No pressors for now. She is afebrile. Her net fluid balance is been +1.4 L over the past 24 hours. The patient is receiving enteral feeding for nutritional support. She is receiving vital high protein at the rate of 10 mL an hour. She is also receiving NovoLog insulin for sliding scale coverage. 09/16/2020, patient is being seen for a follow-up. The patient remains sedated with propofol at 50 mcg/kg per minute and fentanyl is running at 2.5 mcg/kg/h. No paralytics are being utilized. She remains on a mechanical ventilator. She is still with Covid 19 related pneumonia and she is intubated as such on 09/07/2020. She is on assist control mode at the rate of 28 with a tidal volume of 350 and FiO2 of 50% with a PEEP of 8. We were able to wean the PEEP considerably since yesterday. Her current peak airway pressure is 31. The follow-up blood gases from today showing a pH of 7.52 with a pCO2 of 35 and a pO2 of 61. The chest x-ray from today is showing bilateral pulmonary in filtrates and there is improved aeration in the upper lobes. There is still infiltration of the mid and lower lobes bilaterally. ET tube is in good location. The patient continues to have extensive tongue swelling which is obviously protruding outside her mouth. No signs of any necrosis of the tongue. I stopped the DEV inhibitor. She remains on steroids and the patient is receiving Solu Medrol 40 mg every 8 hours. She remains on Lovenox 60 mg of cutaneous every 12 hours. In terms of her blood work, the patient has a hemoglobin of 10.4 with a white cell count of 18.6, and platelet count is at 279, her d-dimer is at 5.62 which is lower compared to yesterday, the rest of the inflammatory markers are showing a CRP level of 6.9 which is also lower compared to yesterday. LFTs are normal. Creatinine 0.5 which is also normal. He was dynamically stable. She is on no pressors. Fluid balance is -3.8 L over the past 24 hours as the patient was being diuresed with Lasix. She received 40 mg of Lasix every 12 hours and this is obviously helped her with her fluid balance. She is gently sedated for now. She is arousable. Moves around. No agitation. She is quite successfully mechanical ventilator. During feeding is with vital high protein at the rate of 10 mL an hour. Orthostasis thousand and 21, the patient is awaiting PEG and trach. She is currently sedated with propofol running at 50 mcg/kg per minute and the fentanyl is running at 2.5 mcg/kg/h. The patient is on no paralytics. She is arousable and she is following some simple orders and commands even while being on sedation. She is gradually noted to be more aroused. As mentioned earlier she, she is a case of a Covid 19 related pneumonia with secondary respiratory failure and the patient has been on mechanical ventilator since 09/07/2020. She remains on assist control mode at the rate of 28 with a tidal volume of 350 and FiO2 of 50% with a PEEP of 8. The chest x-ray from today is showing infiltration in the mid and lower lung eli bilaterally. Most of the infiltration is in the perihilar area.. X-ray is looking slightly improved compared to yesterday and ET tube remains in a good location, The blood gases from today is showing a pH of 7.57 with a pCO2 of 33 and pO2 of 88. I'm suggesting a drop in her respiratory rate based on the fact that the patient has developed some respiratory alkalosis. The peak and static pressures are 29 and 22 respectively. I dropped a respiratory rate down to 18 and the flow down to 60. On a separate note, the patient continues to have a very swollen and large tongue which is sticking out of her mouth. I'm not exactly sure what's causing this problem. ET tube may be causing some pressure on her tongue. In any rate, the ET tube was removed and the patient will be having a tracheostomy tube inserted today.. The patient remains on Decadron. The patient is currently on Decadron at a dose of 6 mg IV every 12 hours. The patient is also on Lovenox 60 mg every 12 hours and this is held this morning for surgery. The patient has a d-dimer of 2.87 and the rest of the inflammatory markers are still pending for now. She is hemodynamically stable. Fluid balance is in order of -1.6 L. The patient is getting Lasix 40 mg IV every 12 hours pages also on vital high protein at the rate of 10 mL an hour and currently the enteral feeding is on hold awaiting surgery. On today's evaluation of 09/18/2020, the patient is post PEG tube insertion and tracheostomy tube insertion. As noted earlier, the patient had a massively enlarged and swollen and protruding the tongue and on today's evaluation the tongue seems to be smaller and more retracted as the orotracheal tube has been taken out and the patient was given a tracheostomy. Currently she is a trach tube which is a Shiley #8. She is calm and comfortable. She is on a combination of propofol and fentanyl. We're the process of weaning the sedation. She is arousable. She is following commands. She is currently running at propofol at 40 mcg/kg per minute and fentanyl is running at 2 mcg/ kg/h. She stated that she was in pain and essentially intended to drop the propofol and keep the fentanyl for now. She is quite successfully mechanical ventilator. She is currently on assist control mode with a rate of 18 and tidal volume of 350and FiO2 of 40% with a PEEP of 8. The blood gases from today showing a pH of 7.45 with a pCO2 43 and pO2 of 154. The patient is also having a follow-up chest x-ray that showed adequate positioning of the orotracheal tube. There is some limited infiltration of the lung bases bilaterally. There is also a left subclavian triple-lumen catheter. Otherwise, the patient is doing well. She is arousable. She is following some simple commands. The peak airway pressure on the mechanical ventilator is 24. She remains on Decadron 6 mg IV every 12 hours and the patient is also on Lovenox at a dose of 40 mg every 24 hours. On her blood work, the patient has a d-dimer of 1.83, the patient's LDH level is 1080 and a CRP level was not obtained on today's evaluation. As such, COVID-19 pneumonia is table and the patient is post tracheostomy tube inse rtion for the need of a prolonged ventilatory support. As far as enteral feeding, the patient was receiving vital high protein is be restarted within 24 hours a PEG tube insertion. PEG tube exit site is dry clean and intact at this point in time. No fever. Hemodynamically stable. No pressors. ENT was consulted regarding the tongue swelling. We are the process of weaning this patient of sedation. Protest on Levaquin for a few days ago was 0.05. 09/19/2020, the patient is off sedation with propofol and she is on requiring fentanyl at 1.5 mcg/kg per hour and this is only for pain control. she is awake and following commands and answering questions. She is profoundly weak. She again with increasing her fingers and toes. She cannot raise it against gravity. She can move her head. She can blink. Her tongue swelling has improved considerably. She isPost tracheostomy tube insertion and the patient has a #[address]. On today's evaluation, the patient has a assist-control mode rate of 18, tidal volume is at 350, FiO2 is at 40% and a PEEP is currently at 5. The blood gases from today showed a pH of 7.44 with a pCO2 of 41 and pO2 of 107. The chest x-ray from today is showing adequate positioning of the tracheostomy tube. Limited bibasilar pulmonary infiltrates. Findings are essentially stable for now. In terms of inflammatory markers, the d-dimer is down to 3.1 and the LDH level is 1055 and a CRP level is 1.9. Rest of the blood work and electrodes are all within normal limits. She has a PEG tube for which she is getting enteral feeding and nutritional support. She is currently receiving vital high protein at the rate of 30 mL an hour. No abdominal distention. She has not had a bowel movement since 09/11/2020. Her pro-calcitonin level was low. She remains on Lovenox 40 mg subcu every 24 hours. She is also on Decadron 6 mg IV once a day. 09/20/2020, the patient is completely off sedation. She is awake. Extremely weak limited to prolonged hospitalization intubation mechanical ventilation. She is able to wiggle her toes pH is able to communicate. She follows instructions the she also response to commands. She is very much, comfortable. She is laying down comfortably in bed. She is still on a mechanical ventilator. She has a Shiley tracheostomy tube #8. She is currently on a tidal volume of 350 with an FiO2 of 40% and a PEEP of 5 and a rate of 18. Blood gases from today shows a pH of 7.49 with a pCO2 of 40 and pO2 of 126. Chest x-ray from today is showing no significant change. Note that the patient was given a spontanous breathing trial yesterday with a support of 10 and a PEEP of 5. She was able to tolerate it for a total of 30 minutes and that she gets tired and she was placed back on assist control volume cycle mechanical ventilator. There is clearing of the lower lobe pulmonary infiltrates and a tracheostomy tube is in a good location. She is receiving enteral feeding for nutritional support and she is currently on vital high protein at the rate of 46 mL an hour. On her blood work, the inflammatory markers show a decline in the LDH and CRP as noted from today with an LDH of 883 and a CRP of 1.6. Renal function stable. Hemoglobin is at 9.0. No other issues for now. Does have dropped feet bilaterally and the patient has medi boots. The patient has been in a negative fluid balance as the patient is receiving Lasix 40 mg IV every 24 hours. There is significant improvement edema in all 4 extremities. She is also on Decadron 4 mg oral dose as the patient has been in the hospital and was being on steroids for the past 2 weeks. On 09/21/2020 patient seen in follow-up in the intensive care unit, she remains off all sedation, she is following commands, she is awake and alert, she is mouthing words, she is able to raise her arms slightly, and wiggle her toes, however she remains very weak, she has been tolerating pressure support trials, and she currently remains on pressure support of 10 and CPAP of 5, with FiO2 of 40%, and she has been tolerating them very well, is maintaining O2 saturation at or around 96-97% on FiO2 of 40%, her vital signs have been stable, hem odynamically she stable, she is in sinus mechanism, she has had some low-grade fevers, afebrile this morning, blood cultures have shown no growth. Today's labs have been reviewed, normal white count at 8.5, hemoglobin of 8.9, sodium is 133, potassium is 3.5, chloride is 102, CO2 31, BUN of 21 creatinine 0.42, LDH is trending down, and is currently at 793, and CRP is at 1.0. Patient remains on oral Decadron 4 mg daily, current dose of Lovenox is 40 mg daily. Today's chest x-ray shows similar appearing bilateral interstitial opacities. She is receiving nutritional support in the form of vital high protein at goal, with standard water flushes, and patient has been tolerating tube feedings quite well. Patient will receive a PICC line today, her central line will be discontinued, discharge planning is in progress for discharge to LTAC facility On 09/22/2020 patient seen in follow-up in the intensive care unit, she is awake and alert, she is following commands, she remains very weak, she is mouthing words, answering appropriately, seems to be oriented 3, she is trached to the ventilator, and she has tolerated close to 36 hours of pressure-support trials from Monday at 9:30 in the morning through Monday at 5:30 in the evening, and was placed on assist-control mode of ventilation last night in view of respiratory fatigue, this morning she was on assist-control ventilation with a rate of 18, tidal 350, FiO2 of 40% and PEEP of 5, this morning's blood gas showed pO2 of 139, pCO2 40, and pH of 7.49, patient was placed back on pressure- support of 10, a CPAP of 5, FiO2 of 40%, tolerating it very well, her only IV drip this point I'm seeing in 20 ML per hour, she was found to have some drainage around the PEG tube site and some redness, and she was placed on Levaquin empirically, CT of the abdomen and pelvis showed mild edema within the soft tissues about the PEG tube insertion site, with possibility of cellulitis, and lobular contour of the liver which may represent early cirrhosis. Lung windows showed a patchy reticular and groundglass opacities within the lower lungs with consolidation in the left lower lobe related to COVID-19 pneumonia. Chest x-ray showed very mild interstitial infiltrates. Her CBC shows white blood cell count of 9.7, hemoglobin of 9.3, sodium is 132, potassium is 3.5, chloride is 101, CO2 31, BUN 20, creatinine 0.4, LDH of 816, CRP of 1.4. Blood cultures have shown no growth. Patient is currently on 4 mg of oral Decadron and daily basis, and prophylactic dose of Lovenox, she also continues on daily dose of IV Lasix, she is in -866 mL fluid balance over the last 24 hours, she has had no acute events overnight, social work is following, and patient is appropriate for transfer to LTAC facility for further weaning and physical therapy, and is currently awaiting insurance authorization. On 09/23/2020 patient seen in follow-up in intensive care unit, she is trached to the ventilator, she has been doing pressure-support trials every day, she has remained on pressure-support of 10 and CPAP of 5 settings since yesterday morning, tolerating them quite well so far, FiO2 is at 40%, she is maintaining stable O2 saturations, she is breathing comfortably, she is awake and alert, oriented 3, she is achieving tidal volumes of over 600 ML, no tachycardia or tachypnea no desaturations, she is on point of normal saline at a rate of 20 ML per hour, no other drips, she is tolerating tube feedings with vital high protein at a rate of 46 with a goal of 46 and standard water flushes. Her PEG tube site was draining some yellow drainage and patient was started on antibiotics, CT of abdomen and pelvis was completed showing possibility of cellulitis, we'll send wound cultures today, otherwise she has remained stable, no new chest x-ray today, no worsening dyspnea, she is on Levaquin for antibiotic coverage, she is in sinus mechanism with a rate of 90, today's labs have been reviewed showing white blood cell count 8.6, hemoglobin is 8.1, sodium is 136, potassium 3.4, chloride is 104, CO2 is 29, BUN of 22, creatinine 0.47, LDH is 652, and CRP is 1.7. Patient remains on daily dose of Lasix, and she is maintaining negative fluid balance -1.500 fluid balance over the last 24 hours, generalized edema is improving. Patient is working with physical therapy, she remains on Decadron 4 mg daily, Lovenox 40 mg daily, and Polyvitamin's. No other acute events overnight, the patient is awaiting insurance authorization for placement in the LTAC facility Objective - Vital Signs Vital signs: Vital Signs Temp 98.7 F 09/23/20 08:00 Pulse 85 09/23/20 12:00 Resp 18 09/23/20 12:00 BP 117/69 09/23/20 12:00 Pulse Ox 98 09/23/20 12:00 Intake & Output 09/22/20 09/23/20 09/23/20 18:59 06:59 18:59 Intake Total 1246 1012 592 Output Total 3280 668 2333 Balance -314 52 -1558 Weight 73.8 kg 73.8 kg Intake: IV 276 276 135 Sodium Chloride 0.9% 500 240 240 120 ml 500 ml @ 20 mls/hr IV .Q24H [facility] Rx#:[id number] pressure bag 36 36 15 Intake, IV Titration 100 Amount Levofloxacin 500Mg-D5w 100 Pmx 500 mg In Dextrose/ Water 1 100ml.bag @ 100 mls/hr IVPB Q24H [facility] Rx#: [id number] Tube Feeding 690 551 322 Other 180 185 135 Output: Urine 8301 219 6507 Other: Voiding Method Indwelling Catheter Indwelling Catheter Indwelling Catheter # Bowel Movements 1 1 1 ABP, PAP, CO, CI - Last Documented Arterial Blood Pressure 116/55 - Exam GENERAL EXAM: Awake and alert, 65-year-old white female trached to the vent ilator, on pressure-support of 10, and CPAP of 5, and FiO2 of 40% of 96%, comfortable in no apparent distress. HEAD: Normocephalic/atraumatic. EYES: Normal reaction of pupils, equal size. Conjunctiva pink, sclera white. NOSE: Clear with pink turbinates. THROAT: No erythema or exudates. NECK: No masses, no JVD, no thyroid enlargement, no adenopathy. Midline tracheostomy patient has a Shiley tube in place, and it is connected to the ventilator patient is currently on pressure-support mode of ventilation CHEST: No chest wall deformity. Symmetrical expansion. LUNGS: Equal air entry with no crackles, wheeze, rhonchi or dullness. CVS: Regular rate and rhythm, normal S1 and S2, no gallops, no murmurs, no rubs ABDOMEN: Soft, nontender. No hepatosplenomegaly, normal bowel sounds, no guarding or rigidity. PEG tube is in place and patient is receiving nutritional support with tube feedings EXTREMITIES: No clubbing, no edema, no cyanosis, 2+ pulses and upper and lower extremities. MUSCULOSKELETAL: Muscle strength and tone normal. SPINE: No scoliosis or deformity SKIN: No rashes CENTRAL NERVOUS SYSTEM: Awake and alert, oriented 3, is trached, she is able to mouth words, she is responding appropriately to verbal command, No focal deficits, tone is normal in all 4 extremities. - Labs CBC & Chem 7: 09/23/20 04:35 09/23/20 04:35 Labs: Abnormal Lab Results - Last 24 Hours (Table) 09/22/20 09/22/20 09/23/20 Range/Units 18:24 23:49 04:35 RBC 2.68 L (3.80-5.40) m/uL Hgb 8.1 L (11.4-16.0) gm/dL Hct 23.7 L (34.0-46.0) % ABG pH (7.35-7.45) ABG pO2 (83-108) mmHg ABG HCO3 (21-25) mmol/L ABG Total CO2 (19-24) mmol/L ABG O2 Saturation (94-97) % Sodium (137-145) mmol/L Potassium (3.5-5.1) mmol/L BUN (7-17) mg/dL Creatinine (0.52-1.04) mg/dL Glucose (74-99) mg/dL POC Glucose (mg/dL) 172 H 110 H (75-99) mg/dL Calcium (8.4-10.2) mg/dL Lactate Dehydrogenase (313-618) U/L C-Reactive Protein (<1.0) mg/dL 09/23/20 09/23/20 09/23/20 Range/Units 04:35 05:12 05:32 RBC (3.80-5.40) m/uL Hgb (11.4-16.0) gm/dL Hct (34.0-46.0) % ABG pH 7.47 H (7.35-7.45) ABG pO2 133 H (83-108) mmHg ABG HCO3 29 H (21-25) mmol/L ABG Total CO2 31 H (19-24) mmol/L ABG O2 Saturation 98.9 H (94-97) % Sodium 136 L (137-145) mmol/L Potassium 3.4 L (3.5-5.1) mmol/L BUN 22 H (7-17) mg/dL Creatinine 0.47 L (0.52-1.04) mg/dL Glucose 136 H (74-99) mg/dL POC Glucose (mg/dL) 148 H (75-99) mg/dL Calcium 8.2 L (8.4-10.2) mg/dL Lactate Dehydrogenase 652 H (313-618) U/L C-Reactive Protein 1.7 H (<1.0) mg/dL Assessment and Plan Plan: Assessment: #1. Acute hypoxic respiratory failure related to acute COVID 19 pneumonia, patient was admitted to the hospital on 09/05/2020, transfer to the intensive care unit on 09/07/2020 and intubated on 09/07/2020, will receive a dose of Actemra 1, and, convalescent plasma 1 on 09/07/2020. Patient received a tracheostomy tube and PEG tube on 09/17/2020, without complications, patient is currently off sedation, following commands, and currently on pressure-support with pressure of 10 and CPAP of 5, tolerating them well so far #2. Elevated inflammatory markers including LDH and a d-dimer, which are impr oving and patient is currently on Decadron 4 mg daily, and at prophylactic dose of Lovenox #3. Swollen and extremely bulky and enlarged tongue, the possibility of ALLERGIC reaction and possibility of angioedema consider possibility of an stomach obstruction and secondary swelling and the swelling has improved, and patient had the orotracheal ET tube removed and patient currently has a tracheostomy tube in place and the tongue swelling has pretty much subsided #4. Retention, currently better controlled, and she is on cognition and Norvasc on Lopressor and hydralazine #5. Increased inflammatory markers, improving #6. Hypothyroidism #6. Never smoker #7. IBS #8. 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 Plan: Continue on pressure support motor ventilation with pressure support of 10, CPAP of 5 and FiO2 of 40% Switch back to assist control becomes fatigued Continue Lasix Continue current dose Decadron and prophylactic Lovenox Patient is doing well Continues on empiric antibiotics for purulent drainage from around the PEG tube site which we will culture Continue nutritional support Continue with empiric Levaquin Physical therapy to continue working on passive range of motion Chest x-ray and labs reviewed Discharge to LTAC facility once the insurance authorization is obtained I performed a history & physical examination of the patient and discussed their management with my nurse practitioner, Danyell Larsen. I reviewed the nurse practitioner's note and agree with the documented findings and plan of care. Lung sounds are positive for diminished breath sounds. The findings and the impression was discussed with the patient. I attest to the documentation by the nurse practitioner. Time with Patient: Greater than 30
[2020-09-23 13:21] LABS: Glucose,Whole Blood 227 mg/dL (75-99)
[2020-09-23] MEDS: LEVOFLOXACIN 500MG-D5W PMX 500 MG in DEXTROSE/WATER 1 100ML.BAG IVPB SCH (15:58)
[2020-09-23] MEDS: SODIUM CHLORIDE 0.9% 500 ML 500 ML IV SCH (15:59)
--- NOTE | 2020-09-23 16:51 | P.PN ---
Subjective Progress Note Date: 09/23/20 Principal diagnosis: Respiratory failure Patient has remained afebrile. White blood cell count remains normal. Nurse did notice some redness inferior to the PEG tube site. Patient was complaining of mild soreness there. Otherwise as tolerated her tube feeds. Objective - Vital Signs Vital signs: Vital Signs Temp 98.4 F 09/23/20 16:00 Pulse 91 09/23/20 16:00 Resp 17 09/23/20 16:00 BP 121/64 09/23/20 16:00 Pulse Ox 99 09/23/20 16:00 Intake & Output 09/22/20 09/23/20 09/23/20 18:59 06:59 18:59 Intake Total 1246 1012 1014 Output Total 6144 470 2501 Balance -314 52 -1611 Weight 73.8 kg 73.8 kg Intake: IV 276 276 215 Sodium Chloride 0.9% 500 240 240 200 ml 500 ml @ 20 mls/hr IV .Q24H [facility] Rx#:[id number] pressure bag 36 36 15 Intake, IV Titration 100 100 Amount Levofloxacin 500Mg-D5w 100 100 Pmx 500 mg In Dextrose/ Water 1 100ml.bag @ 100 mls/hr IVPB Q24H [facility] Rx#: [id number] Tube Feeding 690 551 534 Other 180 185 165 Output: Urine 5088 163 5272 Other: Voiding Method Indwelling Catheter Indwelling Catheter Indwelling Catheter # Bowel Movements 1 1 1 ABP, PAP, CO, CI - Last Documented Arterial Blood Pressure 116/55 - Exam Abdomen: Soft, nondistended, mild tenderness around PEG tube with decreased drainage, small area of erythema and fluctuance inferior to PEG tube insertion - Labs CBC & Chem 7: 09/23/20 04:35 09/23/20 14:00 Labs: Abnormal Lab Results - Last 24 Hours (Table) 09/22/20 09/22/20 09/23/20 Range/Units 18:24 23:49 04:35 RBC 2.68 L (3.80-5.40) m/uL Hgb 8.1 L (11.4-16.0) gm/dL Hct 23.7 L (34.0-46.0) % ABG pH (7.35-7.45) ABG pO2 (83-108) mmHg ABG HCO3 (21-25) mmol/L ABG Total CO2 (19-24) mmol/L ABG O2 Saturation (94-97) % Sodium (137-145) mmol/L Potassium (3.5-5.1) mmol/L BUN (7-17) mg/dL Creatinine (0.52-1.04) mg/dL Glucose (74-99) mg/dL POC Glucose (mg/dL) 172 H 110 H (75-99) mg/dL Calcium (8.4-10.2) mg/dL Lactate Dehydrogenase (313-618) U/L C-Reactive Protein (<1.0) mg/dL 09/23/20 09/23/20 09/23/20 Range/Units 04:35 05:12 05:32 RBC (3.80-5.40) m/uL Hgb (11.4-16.0) gm/dL Hct (34.0-46.0) % ABG pH 7.47 H (7.35-7.45) ABG pO2 133 H (83-108) mmHg ABG HCO3 29 H (21-25) mmol/L ABG Total CO2 31 H (19-24) mmol/L ABG O2 Saturation 98.9 H (94-97) % Sodium 136 L (137-145) mmol/L Potassium 3.4 L (3.5-5.1) mmol/L BUN 22 H (7-17) mg/dL Creatinine 0.47 L (0.52-1.04) mg/dL Glucose 136 H (74-99) mg/dL POC Glucose (mg/dL) 148 H (75-99) mg/dL Calcium 8.2 L (8.4-10.2) mg/dL Lactate Dehydrogenase 652 H (313-618) U/L C-Reactive Protein 1.7 H (<1.0) mg/dL 09/23/20 Range/Units 13:19 RBC (3.80-5.40) m/uL Hgb (11.4-16.0) gm/dL Hct (34.0-46.0) % ABG pH (7.35-7.45) ABG pO2 (83-108) mmHg ABG HCO3 (21-25) mmol/L ABG Total CO2 (19-24) mmol/L ABG O2 Saturation (94-97) % Sodium (137-145) mmol/L Potassium (3.5-5.1) mmol/L BUN (7-17) mg/dL Creatinine (0.52-1.04) mg/dL Glucose (74-99) mg/dL POC Glucose (mg/dL) 227 H (75-99) mg/dL Calcium (8.4-10.2) mg/dL Lactate Dehydrogenase (313-618) U/L C-Reactive Protein (<1.0) mg/dL Microbiology - Last 24 Hours (Table) 09/23/20 11:00 Anaerobic Culture - Preliminary Abdomen 09/23/20 11:00 Wound Culture - Preliminary Abdomen Assessment and Plan (1) Respiratory failure Narrative/Plan: Suspect infected hematoma at PEG tube site. Will proceed with bedside incision and drainage. Await cultures. Continue antibiotics. Current Visit: Yes Status: Acute Code(s): J96.90 - RESPIRATORY FAILURE, UNSP, UNSP W HYPOXIA OR HYPERCAPNIA SNOMED Code(s): 076068257
[2020-09-23 17:36] LABS: Glucose,Whole Blood 143 mg/dL (75-99)
[2020-09-23] MEDS: LORATADINE 10 MG TAB PO SCH (21:34)
[2020-09-23] MEDS: ATORVASTATIN 20 MG TAB PO SCH (21:34)
[2020-09-23] MEDS: ASPIRIN 81 MG PO SCH (21:34)
[2020-09-23] MEDS: MELATONIN 5 MG TABLET PO SCH (21:34)
[2020-09-23] MEDS: MONTELUKAST 10 MG TAB PO SCH (21:35)
[2020-09-23] MEDS: MULTIVITAMINS, THERA 1 EACH TAB PO SCH (21:35)
[2020-09-23 23:43] LABS: Glucose,Whole Blood 131 mg/dL (75-99)
[2020-09-24] MEDS: HYDROmorphone 0.5 MG/0.5 ML SYRINGE IVP PRN (02:18)
[2020-09-24] MEDS: INSULIN ASPART (NovoLOG) 100 UNIT/ML VIAL SQ SCH ×3 (02:35→14:34)
[2020-09-24 05:01] LABS: Basophils % (A) 0 %; Eosinophils % (A) 0 %; HCT 25.2 % (34.0-46.0); HGB 7.9 gm/dL (11.4-16.0); Lymphocytes # (A) 1.4 k/uL (1.0-4.8); Lymphocytes % (A) 22 %; MCH 28.5 pg (25.0-35.0); MCHC 31.4 g/dL (31.0-37.0); MCV 90.8 fL (80.0-100.0); Mean Platelet Volume 7.4; Monocytes # (A) 0.5 k/uL (0-1.0); Monocytes % (A) 7 %; Neutrophils # (A) 4.5 k/uL (1.3-7.7); Neutrophils % (A) 68 %; Platelet Count 236 k/uL (150-450); RBC 2.77 m/uL (3.80-5.40); RDW 15.2 % (11.5-15.5); WBC 6.6 k/uL (3.8-10.6)
[2020-09-24 05:13] LABS: ALT 127 U/L (4-34); AST 51 U/L (14-36); African American GFR (CKD) >90 (>60 ml/min/1.73 sqM); Albumin 2.8 g/dL (3.5-5.0); Alkaline Phosphatase 138 U/L (38-126); Anion Gap 4 mmol/L; Blood Urea Nitrogen 22 mg/dL (7-17); Calcium 8.7 mg/dL (8.4-10.2); Carbon Dioxide 29 mmol/L (22-30); Chloride 101 mmol/L (98-107); Glucose 118 mg/dL (74-99); Non-African American GFR(CKD) >90 (>60 ml/min/1.73 sqM); Potassium 3.8 mmol/L (3.5-5.1); Sodium 134 mmol/L (137-145); Total Bilirubin 0.3 mg/dL (0.2-1.3)
[2020-09-24 06:10] LABS: Glucose,Whole Blood 142 mg/dL (75-99)
[2020-09-24 06:22] VITALS: TEMP 98.4
--- NOTE | 2020-09-24 06:28 | XR ---
EXAMINATION TYPE: XR chest 1V portable DATE OF EXAM: 09/24/2020 CLINICAL HISTORY: Difficulty breathing progress study. TECHNIQUE: Single AP portable upright view of the chest is obtained. COMPARISON: Chest x-ray from 2 days earlier and older studies FINDINGS: Stable tracheostomy tube. Stable right-sided PICC line. Cardiac silhouette size is mildly enlarged. Persistent multifocal increased opacities greatest in the lung bases. Osseous structures remain intact. Interval clearance of contrast from the stomach. IMPRESSION: Mild cardiomegaly and Bilateral multifocal opacities greatest in the lung bases redemonst rated consistent with covid-19 infection, no significant change from most recent x-ray.
[2020-09-24] MEDS: LEVOTHYROXINE 75 MCG TAB PO SCH (06:30)
[2020-09-24] MEDS ORDERED: POTASSIUM BICARBONATE/CIT AC 20 MEQ TABLET.EFF NG-TUBE SCH (07:00)
[2020-09-24] MEDS: ALBUTEROL HFA INHALER INHALATION SCH ×2 (08:02→11:31)
[2020-09-24] MEDS: CHLORHEXIDINE GLUCONATE 15 ML CUP MUCOUS MEM SCH (08:29)
[2020-09-24] MEDS: FUROSEMIDE 10 MG/ML 4 ML VIAL IV SCH (08:29)
[2020-09-24] MEDS: ENOXAPARIN 40 MG/0.4 ML SYRINGE SQ SCH (08:30)
[2020-09-24] MEDS: hydrALAZINE HCL 50 MG TAB PO SCH (08:30)
[2020-09-24] MEDS: dexAMETHasone 4 MG TAB PO SCH (08:30)
[2020-09-24] MEDS: PANTOPRAZOLE 40 MG/10 ML VIAL IVP SCH (08:30)
[2020-09-24] MEDS: CHOLECALCIFEROL 25 MCG (1000 IU) TABLET PO SCH (08:30)
[2020-09-24] MEDS: amLODIPine 5 MG TAB PO SCH (08:30)
[2020-09-24] MEDS: ZINC SULFATE 220 MG CAP PO SCH (08:31)
[2020-09-24] MEDS: CITALOPRAM HYDROBROMIDE 20 MG TAB PO SCH (08:31)
[2020-09-24] MEDS: METOPROLOL TARTRATE 50 MG TAB PO SCH (08:31)
[2020-09-24] MEDS: ASCORBIC ACID 500 MG TAB PO SCH (08:31)
[2020-09-24 11:22] LABS: Glucose,Whole Blood 175 mg/dL (75-99)
--- NOTE | 2020-09-24 12:23 | P.PN ---
Subjective Progress Note Date: 09/24/20 Principal diagnosis: Nausea, vomiting, diarrhea, weakness 65-year-old white female patient of Dr. Haq with past medical history of hypertension, hypothyroidism, IBS, hiatal hernia, renal disorder, who presented to the emergency department on 09/05/2020 with symptoms of nausea, vomiting, diarrhea, she reported some cough, fever and generalized weakness, but no overt shortness of breath. Patient had exposure to COVID 19 from her son and daughter. Patient had decreased oral intake, she came in with profound generalized weakness and not being able to keep fluids down. Chest x-ray showed bilateral patchy airspace pneumonia, COVID 19 PCR was positive. Patient was lymphopenic with lymphocytic 0.9, white blood cell count is 3.5, hemoglobin is 12.5, d-dimer 0.61, troponin was less than 0.012, pro calcitonin level was 0.07. LDH was 1550, CRP is 130.8, ferritin level is 337.5. Presentation patient was severely hypoxic, with O2 saturations in the low 80s on 100% FiO2. Blood gas was obtained showing pO2 of 44, pCO2 of 36, pH of 7.46, patient was intubated and placed on mechanical ventilator. She is currently sedated and paralyzed, and on assist control mode of ventilation with a rate of 28, tacrolimus 400, FiO2 100%, and PEEP of 14. This morning blood gases showed pO2 of 50, pCO2 36, and pH of 7.44. Currently patient sedated and paralyzed on [facility] ventilator. 0.9 at 130 in the per hour, and Nimbex is at 2 mics per kilo per minute, Diprivan is a 50 mics per kilo per minute, and fentanyl drip is currently is 1 mcg/kg/m. Patient has been started on IV steroids 60 mg every 6 hours of Solu-Medrol, she is on Lovenox 40 mg daily. She'll be given a dose of convalescent plasma and she is awaiting a dose of Tocili. Follow-up chest x-ray today shows increased bilateral patchy opacities, and trace right pleural effusion. CTA chest was completed showing no evidence of pulmonary embolism. On 09/08/2020 patient seen in follow-up in the intensive care units. She remains sedated, intubated, currently on assist control with a rate of 20s, tidal volume is 450, FiO2 70%, and PEEP of 18, this morning blood gases show pO2 of 63, pCO2 33, pH is 7.38. Patient is currently on 0.9 at 130 and no per hour, Diprivan is a 35 mics per kilo per minute, fentanyl drip is at 1 adam per kilo per minute, and Nexium is at 1.45 mics per kilo per minute. She is noted to be hypothermic early this morning with a temp of 93.4F. White blood cell count is 5.4, hemoglobin is 8.8, facet, 0.8, d-dimer is 1.67, sodium is 139, potassium is 3.3, chloride is 114, CO2 is 19, BUN is 13, creatinine 0.53, CRP is 216, AST is 40, ALT is 19, alkaline phosphatase is 80, troponin was less than 0.012. LDH is pending today. Progesterone level was negative at 0.07, urinalysis showed no evidence of infection. Blood cultures were negative. She remains on Lovenox 40 mg twice daily, IV Solu-Medrol 60 g every 6 hours, she received 480 mg of Tocilizumab. Received 1 unit of convalescent plasma. She is receiving nutritional support in the form of vital HP at 20 with a goal of 29. Has been tolerating tube feedings, fluid boluses were given yesterday, she still continues on 0.9 NS at 130 ML per hour and her urine output is marginal, and patient will receive additional liter fluid bolus On 09/14/2020 and seeing this patient for a follow-up as the patient is currently intubated on a mechanical ventilated with hypoxic respiratory failure due to COVID 19 related pneumonia and respiratory failure. The patient was intubated on 09/07/2020 and the patient has been treated with a convalescent plasma and received a dose of Actemra and the patient is currently on steroids. On today's evaluation, the patient remains sedated and the patient is currently on a combination of propofol 60 mics /kg per minute and the patient on fentanyl at 3 mcg/kg/h. The patient was also paralyzed and the paramedics was discontinued yesterday at around 10:00. Since then the patient has been off paralytics.. The patient remains on a mechanical ventilator on assist control mode at the rate of 28 with a tidal volume of 400 and FiO2 of 50% with a PEEP of 15. The patient blood gases is still pending from this morning.Chest x-ray showing diffuse bilateral pulmonary infiltrate, and the infiltrates are worse in the right lower lobe compared to the left although there is bilateral pulmonary infiltrates. The patient's subclavian triple-lumen catheter on the left and the patient has an ET tube that that being around 2 cm above the jason. and the patient remains on Lovenox 60 mg every 24 hours. The patient is receiving NovoLog insulin for size. Coverage blood sugar control. The patient is also utilizing clevidipine drip for blood pressure control at 2 mg an hour she is on Norvasc 5 mg by mouth twice a day. The patient is also on metoprolol 100 mg by mouth twice a day. The patient is on Zestril 20 mg by mouth twice a day for blood pressure control. The patient is on levothyroxine 75 g and 37.5 g orally on a daily basis. The patient is receiving enteral feeding for nutritional support. The most recent CRP level is at 9, the most recent LDH level was 1750. D-dimer was elevated at 8.2. Hypertension, hypothyroidism, IBS, hiatal hernia, and the patient initially presented to us on 09/05/2020 with gastrointestinal symptoms and shortness of breath. the morning labs show normal electrolytes, no other abnormalities are noted. The patient remains on IV Solu-Medrol 40 mg every 12 hours. Lovenox is a 60 mg every 12 hours and the patient d-dimer was 8.21. The peak airway pressures around 41. Static pressure is 33-34. On 09/15/2020, the patient remains intubated on mechanical ventilator. The patient was intubated for Covid 19 related pneumonia. The patient was intubated on 09/07/2020. The patient currently is sedated with propofol which is running at 60 mcg/kg per minute and the fentanyl is also running at 3 mcg/kg/h. The patient is off paralytics for now. Meanwhile, the patient remains an assist- control mode of ventilation which is essentially the same as yesterday. The patient is on a tidal volume of 350 with an FiO2 of 50% and a PEEP of 13 and the rate of 28. The peak airway pressures around 37 anesthetic pressures 34. The patient continues to have a very enlarged and swollen tongue which is nonnecrotic at this point in time. The blood gases from this morning shows a pH of 7.49 with a pCO2 of 38 and a pO2 of 90. Chest x-ray still pending for now. The chest x-ray from yesterday was still showing diffuse bilateral pulmonary in filtrates. Meanwhile, the patient is still on clevidipine drip for blood pressure control. Her blood pressure remains quite elevated. She is running at 4 mg an hour and the patient is also on a combination of Norvasc a total of 10 mg by mouth daily, metoprolol 100 mg by mouth twice a day, Zestril 20 mg by mouth twice a day. She is still receiving Solu-Medrol 40 mg IV every 8 hours. Anticoagulation is with Lovenox 60 mg by subcu twice a day. On her blood work, she has a normal renal function with a BUN of 27 and creatinine of 0.5. Electrolytes are normal. White count of 12.7 with a hemoglobin of 9.8. The liver function tests are essentially within normal limits. Hemodynamically stab le. No pressors for now. She is afebrile. Her net fluid balance is been +1.4 L over the past 24 hours. The patient is receiving enteral feeding for nutritional support. She is receiving vital high protein at the rate of 10 mL an hour. She is also receiving NovoLog insulin for sliding scale coverage. 09/16/2020, patient is being seen for a follow-up. The patient remains sedated with propofol at 50 mcg/kg per minute and fentanyl is running at 2.5 mcg/kg/h. No paralytics are being utilized. She remains on a mechanical ventilator. She is still with Covid 19 related pneumonia and she is intubated as such on 09/07/2020. She is on assist control mode at the rate of 28 with a tidal volume of 350 and FiO2 of 50% with a PEEP of 8. We were able to wean the PEEP considerably since yesterday. Her current peak airway pressure is 31. The follow-up blood gases from today showing a pH of 7.52 with a pCO2 of 35 and a pO2 of 61. The chest x-ray from today is showing bilateral pulmonary in filtrates and there is improved aeration in the upper lobes. There is still infiltration of the mid and lower lobes bilaterally. ET tube is in good location. The patient continues to have extensive tongue swelling which is obviously protruding outside her mouth. No signs of any necrosis of the tongue. I stopped the DEV inhibitor. She remains on steroids and the patient is receiving Solu Medrol 40 mg every 8 hours. She remains on Lovenox 60 mg of cutaneous every 12 hours. In terms of her blood work, the patient has a hemoglobin of 10.4 with a white cell count of 18.6, and platelet count is at 279, her d-dimer is at 5.62 which is lower compared to yesterday, the rest of the inflammatory markers are showing a CRP level of 6.9 which is also lower compared to yesterday. LFTs are normal. Creatinine 0.5 which is also normal. He was dynamically stable. She is on no pressors. Fluid balance is -3.8 L over the past 24 hours as the patient was being diuresed with Lasix. She received 40 mg of Lasix every 12 hours and this is obviously helped her with her fluid balance. She is gently sedated for now. She is arousable. Moves around. No agitation. She is quite successfully mechanical ventilator. During feeding is with vital high protein at the rate of 10 mL an hour. Orthostasis thousand and 21, the patient is awaiting PEG and trach. She is currently sedated with propofol running at 50 mcg/kg per minute and the fentanyl is running at 2.5 mcg/kg/h. The patient is on no paralytics. She is arousable and she is following some simple orders and commands even while being on sedation. She is gradually noted to be more aroused. As mentioned earlier she, she is a case of a Covid 19 related pneumonia with secondary respiratory failure and the patient has been on mechanical ventilator since 09/07/2020. She remains on assist control mode at the rate of 28 with a tidal volume of 350 and FiO2 of 50% with a PEEP of 8. The chest x-ray from today is showing infiltration in the mid and lower lung eli bilaterally. Most of the infiltration is in the perihilar area.. X-ray is looking slightly improved compared to yesterday and ET tube remains in a good location, The blood gases from today is showing a pH of 7.57 with a pCO2 of 33 and pO2 of 88. I'm suggesting a drop in her respiratory rate based on the fact that the patient has developed some respiratory alkalosis. The peak and static pressures are 29 and 22 respectively. I dropped a respiratory rate down to 18 and the flow down to 60. On a separate note, the patient continues to have a very swollen and large tongue which is sticking out of her mouth. I'm not exactly sure what's causing this problem. ET tube may be causing some pressure on her tongue. In any rate, the ET tube was removed and the patient will be having a tracheostomy tube inserted today.. The patient remains on Decadron. The patient is currently on Decadron at a dose of 6 mg IV every 12 hours. The patient is also on Lovenox 60 mg every 12 hours and this is held this morning for surgery. The patient has a d-dimer of 2.87 and the rest of the inflammatory markers are still pending for now. She is hemodynamically stable. Fluid balance is in order of -1.6 L. The patient is getting Lasix 40 mg IV every 12 hours pages also on vital high protein at the rate of 10 mL an hour and currently the enteral feeding is on hold awaiting surgery. On today's evaluation of 09/18/2020, the patient is post PEG tube insertion and tracheostomy tube insertion. As noted earlier, the patient had a massively enlarged and swollen and protruding the tongue and on today's evaluation the tongue seems to be smaller and more retracted as the orotracheal tube has been taken out and the patient was given a tracheostomy. Currently she is a trach tube which is a Shiley #8. She is calm and comfortable. She is on a combination of propofol and fentanyl. We're the process of weaning the sedation. She is arousable. She is following commands. She is currently running at propofol at 40 mcg/kg per minute and fentanyl is running at 2 mcg/ kg/h. She stated that she was in pain and essentially intended to drop the propofol and keep the fentanyl for now. She is quite successfully mechanical ventilator. She is currently on assist control mode with a rate of 18 and tidal volume of 350and FiO2 of 40% with a PEEP of 8. The blood gases from today showing a pH of 7.45 with a pCO2 43 and pO2 of 154. The patient is also having a follow-up chest x-ray that showed adequate positioning of the orotracheal tube. There is some limited infiltration of the lung bases bilaterally. There is also a left subclavian triple-lumen catheter. Otherwise, the patient is doing well. She is arousable. She is following some simple commands. The peak airway pressure on the mechanical ventilator is 24. She remains on Decadron 6 mg IV every 12 hours and the patient is also on Lovenox at a dose of 40 mg every 24 hours. On her blood work, the patient has a d-dimer of 1.83, the patient's LDH level is 1080 and a CRP level was not obtained on today's evaluation. As such, COVID-19 pneumonia is table and the patient is post tracheostomy tube inse rtion for the need of a prolonged ventilatory support. As far as enteral feeding, the patient was receiving vital high protein is be restarted within 24 hours a PEG tube insertion. PEG tube exit site is dry clean and intact at this point in time. No fever. Hemodynamically stable. No pressors. ENT was consulted regarding the tongue swelling. We are the process of weaning this patient of sedation. Protest on Levaquin for a few days ago was 0.05. 09/19/2020, the patient is off sedation with propofol and she is on requiring fentanyl at 1.5 mcg/kg per hour and this is only for pain control. she is awake and following commands and answering questions. She is profoundly weak. She again with increasing her fingers and toes. She cannot raise it against gravity. She can move her head. She can blink. Her tongue swelling has improved considerably. She isPost tracheostomy tube insertion and the patient has a #[address]. On today's evaluation, the patient has a assist-control mode rate of 18, tidal volume is at 350, FiO2 is at 40% and a PEEP is currently at 5. The blood gases from today showed a pH of 7.44 with a pCO2 of 41 and pO2 of 107. The chest x-ray from today is showing adequate positioning of the tracheostomy tube. Limited bibasilar pulmonary infiltrates. Findings are essentially stable for now. In terms of inflammatory markers, the d-dimer is down to 3.1 and the LDH level is 1055 and a CRP level is 1.9. Rest of the blood work and electrodes are all within normal limits. She has a PEG tube for which she is getting enteral feeding and nutritional support. She is currently receiving vital high protein at the rate of 30 mL an hour. No abdominal distention. She has not had a bowel movement since 09/11/2020. Her pro-calcitonin level was low. She remains on Lovenox 40 mg subcu every 24 hours. She is also on Decadron 6 mg IV once a day. 09/20/2020, the patient is completely off sedation. She is awake. Extremely weak limited to prolonged hospitalization intubation mechanical ventilation. She is able to wiggle her toes pH is able to communicate. She follows instructions the she also response to commands. She is very much, comfortable. She is laying down comfortably in bed. She is still on a mechanical ventilator. She has a Shiley tracheostomy tube #8. She is currently on a tidal volume of 350 with an FiO2 of 40% and a PEEP of 5 and a rate of 18. Blood gases from today shows a pH of 7.49 with a pCO2 of 40 and pO2 of 126. Chest x-ray from today is showing no significant change. Note that the patient was given a spontanous breathing trial yesterday with a support of 10 and a PEEP of 5. She was able to tolerate it for a total of 30 minutes and that she gets tired and she was placed back on assist control volume cycle mechanical ventilator. There is clearing of the lower lobe pulmonary infiltrates and a tracheostomy tube is in a good location. She is receiving enteral feeding for nutritional support and she is currently on vital high protein at the rate of 46 mL an hour. On her blood work, the inflammatory markers show a decline in the LDH and CRP as noted from today with an LDH of 883 and a CRP of 1.6. Renal function stable. Hemoglobin is at 9.0. No other issues for now. Does have dropped feet bilaterally and the patient has medi boots. The patient has been in a negative fluid balance as the patient is receiving Lasix 40 mg IV every 24 hours. There is significant improvement edema in all 4 extremities. She is also on Decadron 4 mg oral dose as the patient has been in the hospital and was being on steroids for the past 2 weeks. On 09/21/2020 patient seen in follow-up in the intensive care unit, she remains off all sedation, she is following commands, she is awake and alert, she is mouthing words, she is able to raise her arms slightly, and wiggle her toes, however she remains very weak, she has been tolerating pressure support trials, and she currently remains on pressure support of 10 and CPAP of 5, with FiO2 of 40%, and she has been tolerating them very well, is maintaining O2 saturation at or around 96-97% on FiO2 of 40%, her vital signs have been stable, hem odynamically she stable, she is in sinus mechanism, she has had some low-grade fevers, afebrile this morning, blood cultures have shown no growth. Today's labs have been reviewed, normal white count at 8.5, hemoglobin of 8.9, sodium is 133, potassium is 3.5, chloride is 102, CO2 31, BUN of 21 creatinine 0.42, LDH is trending down, and is currently at 793, and CRP is at 1.0. Patient remains on oral Decadron 4 mg daily, current dose of Lovenox is 40 mg daily. Today's chest x-ray shows similar appearing bilateral interstitial opacities. She is receiving nutritional support in the form of vital high protein at goal, with standard water flushes, and patient has been tolerating tube feedings quite well. Patient will receive a PICC line today, her central line will be discontinued, discharge planning is in progress for discharge to LTAC facility On 09/22/2020 patient seen in follow-up in the intensive care unit, she is awake and alert, she is following commands, she remains very weak, she is mouthing words, answering appropriately, seems to be oriented 3, she is trached to the ventilator, and she has tolerated close to 36 hours of pressure-support trials from Monday at 9:30 in the morning through Monday at 5:30 in the evening, and was placed on assist-control mode of ventilation last night in view of respiratory fatigue, this morning she was on assist-control ventilation with a rate of 18, tidal 350, FiO2 of 40% and PEEP of 5, this morning's blood gas showed pO2 of 139, pCO2 40, and pH of 7.49, patient was placed back on pressure- support of 10, a CPAP of 5, FiO2 of 40%, tolerating it very well, her only IV drip this point I'm seeing in 20 ML per hour, she was found to have some drainage around the PEG tube site and some redness, and she was placed on Levaquin empirically, CT of the abdomen and pelvis showed mild edema within the soft tissues about the PEG tube insertion site, with possibility of cellulitis, and lobular contour of the liver which may represent early cirrhosis. Lung windows showed a patchy reticular and groundglass opacities within the lower lungs with consolidation in the left lower lobe related to COVID-19 pneumonia. Chest x-ray showed very mild interstitial infiltrates. Her CBC shows white blood cell count of 9.7, hemoglobin of 9.3, sodium is 132, potassium is 3.5, chloride is 101, CO2 31, BUN 20, creatinine 0.4, LDH of 816, CRP of 1.4. Blood cultures have shown no growth. Patient is currently on 4 mg of oral Decadron and daily basis, and prophylactic dose of Lovenox, she also continues on daily dose of IV Lasix, she is in -866 mL fluid balance over the last 24 hours, she has had no acute events overnight, social work is following, and patient is appropriate for transfer to LTAC facility for further weaning and physical therapy, and is currently awaiting insurance authorization. On 09/23/2020 patient seen in follow-up in intensive care unit, she is trached to the ventilator, she has been doing pressure-support trials every day, she has remained on pressure-support of 10 and CPAP of 5 settings since yesterday morning, tolerating them quite well so far, FiO2 is at 40%, she is maintaining stable O2 saturations, she is breathing comfortably, she is awake and alert, oriented 3, she is achieving tidal volumes of over 600 ML, no tachycardia or tachypnea no desaturations, she is on point of normal saline at a rate of 20 ML per hour, no other drips, she is tolerating tube feedings with vital high protein at a rate of 46 with a goal of 46 and standard water flushes. Her PEG tube site was draining some yellow drainage and patient was started on antibiotics, CT of abdomen and pelvis was completed showing possibility of cellulitis, we'll send wound cultures today, otherwise she has remained stable, no new chest x-ray today, no worsening dyspnea, she is on Levaquin for antibiotic coverage, she is in sinus mechanism with a rate of 90, today's labs have been reviewed showing white blood cell count 8.6, hemoglobin is 8.1, sodium is 136, potassium 3.4, chloride is 104, CO2 is 29, BUN of 22, creatinine 0.47, LDH is 652, and CRP is 1.7. Patient remains on daily dose of Lasix, and she is maintaining negative fluid balance -1.500 fluid balance over the last 24 hours, generalized edema is improving. Patient is working with physical therapy, she remains on Decadron 4 mg daily, Lovenox 40 mg daily, and Polyvitamin's. No other acute events overnight, the patient is awaiting insurance authorization for placement in the LTAC facility On 09/25/1999 the patient in follow-up in the intensive care unit, she is awake, she is following commands, she is oriented 3, she started to the ventilator, yesterday she tolerated all day of pressure-support trials with the pressure- support of 10, and CPAP of 5, she did become fatigued at bedtime and she was placed back on assist control mode of ventilation, she remains on assist-control this morning with a rate of 18, tidal vital 350, FiO2 40% and PEEP of 5, no blood gases were done this morning, she is on point and was seen at 20 ML per hour, patient's chest x-ray shows bilateral multifocal opacities greater in the lung bases, with no significant change, but signs have been stable, she is hemodynamically stable, she is in sinus mechanism, she is not on any vasopressor support, she is awake and alert, she is breathing comfortably, she is tolerating nutritional support with bilateral AFOs at 50 ML per hour, she is on antibiotics in the form of Levaquin for possibility of PEG tube site infection, this is less purulent drainage around the PEG tube site today, wound cultures have been sent and are pending at this time, in the meantime patient has no leukocytosis on today's labs, no fever or chills, no increased redness or purulent drainage. Patient is working with physical therapy, and she has had no acute events overnight, she is awaiting insurance authorization and there is possibility she may be approved today. Objective - Vital Signs Vital signs: Vital Signs Temp 98.4 F 09/24/20 04:00 Pulse 84 09/24/20 09:00 Resp 20 09/24/20 09:00 BP 121/66 09/24/20 09:00 Pulse Ox 99 09/24/20 09:00 Intake & Output 09/23/20 09/24/20 09/24/20 18:59 06:59 18:59 Intake Total 1134 990 255 Output Total 2825 865 360 Balance -1691 125 -105 Weight 73.8 kg 73.5 kg Intake: IV 255 240 60 Sodium Chloride 0.9% 500 240 240 60 ml 500 ml @ 20 mls/hr IV .Q24H [facility] Rx#:[id number] pressure bag 15 Intake, IV Titration 100 Amount Levofloxacin 500Mg-D5w 100 Pmx 500 mg In Dextrose/ Water 1 100ml.bag @ 100 mls/hr IVPB Q24H [facility] Rx#: [id number] Tube Feeding 614 610 150 Other 165 140 45 Output: Urine 2825 865 360 Other: Voiding Method Indwelling Catheter Indwelling Catheter Indwelling Catheter # Bowel Movements 1 2 ABP, PAP, CO, CI - Last Documented Arterial Blood Pressure 116/55 - Exam GENERAL EXAM: Awake and alert, 65-year-old white female trached to the ventilator, on pressure-support of 10, and CPAP of 5, and FiO2 of 40% of 96%, comfortable in no apparent distress. HEAD: Normocephalic/atraumatic. EYES: Normal reaction of pupils, equal size. Conjunctiva pink, sclera white. NOSE: Clear with pink turbinates. THROAT: No erythema or exudates. NECK: No masses, no JVD, no thyroid enlargement, no adenopathy. Midline tracheostomy patient has a Shiley tube in place, and it is connected to the ventilator patient is currently on pressure-support mode of ventilation CHEST: No chest wall deformity. Symmetrical expansion. LUNGS: Equal air entry with no crackles, wheeze, rhonchi or dullness. CVS: Regular rate and rhythm, normal S1 and S2, no gallops, no murmurs, no rubs ABDOMEN: Soft, nontender. No hepatosplenomegaly, normal bowel sounds, no guarding or rigidity. PEG tube is in place and patient is receiving nutritional support with tube feedings EXTREMITIES: No clubbing, no edema, no cyanosis, 2+ pulses and upper and lower extremities. MUSCULOSKELETAL: Muscle strength and tone normal. SPINE: No scoliosis or deformity SKIN: No rashes CENTRAL NERVOUS SYSTEM: Awake and alert, oriented 3, is trached, she is able to mouth words, she is responding appropriately to verbal command, No focal deficits, tone is normal in all 4 extremities. - Labs CBC & Chem 7: 09/24/20 04:45 09/24/20 04:45 Labs: Abnormal Lab Results - Last 24 Hours (Table) 09/23/20 09/23/20 09/23/20 Range/Units 13:19 17:35 23:42 RBC (3.80-5.40) m/uL Hgb (11.4-16.0) gm/dL Hct (34.0-46.0) % Sodium (137-145) mmol/L BUN (7-17) mg/dL Creatinine (0.52-1.04) mg/dL Glucose (74-99) mg/dL POC Glucose (mg/dL) 227 H 143 H 131 H (75-99) mg/dL AST (14-36) U/L ALT (4-34) U/L Alkaline Phosphatase (38-126) U/L Total Protein (6.3-8.2) g/dL Albumin (3.5-5.0) g/dL 09/24/20 09/24/20 09/24/20 Range/Units 04:45 04:45 06:09 RBC 2.77 L (3.80-5.40) m/uL Hgb 7.9 L (11.4-16.0) gm/dL Hct 25.2 L (34.0-46.0) % Sodium 134 L (137-145) mmol/L BUN 22 H (7-17) mg/dL Creatinine 0.44 L (0.52-1.04) mg/dL Glucose 118 H (74-99) mg/dL POC Glucose (mg/dL) 142 H (75-99) mg/dL AST 51 H (14-36) U/L ALT 127 H (4-34) U/L Alkaline Phosphatase 138 H (38-126) U/L Total Protein 5.0 L (6.3-8.2) g/dL Albumin 2.8 L (3.5-5.0) g/dL 09/24/20 Range/Units 11:20 RBC (3.80-5.40) m/uL Hgb (11.4-16.0) gm/dL Hct (34.0-46.0) % Sodium (137-145) mmol/L BUN (7-17) mg/dL Creatinine (0.52-1.04) mg/dL Glucose (74-99) mg/dL POC Glucose (mg/dL) 175 H (75-99) mg/dL AST (14-36) U/L ALT (4-34) U/L Alkaline Phosphatase (38-126) U/L Total Protein (6.3-8.2) g/dL Albumin (3.5-5.0) g/dL Microbiology - Last 24 Hours (Table) 09/23/20 11:00 Gram Stain - Preliminary Abdomen Wound Culture - Preliminary Gram Neg Bacilli 09/23/20 11:00 Anaerobic Culture - Preliminary Abdomen Assessment and Plan Plan: Assessment: #1. Acute hypoxic respiratory failure related to acute COVID 19 pneumonia, patient was admitted to the hospital on 09/05/2020, transfer to the intensive care unit on 09/07/2020 and intubated on 09/07/2020, will receive a dose of Actemra 1, and, convalescent plasma 1 on 09/07/2020. Patient received a tracheostomy tube and PEG tube on 09/17/2020, without complications, patient is currently off sedation, following commands, and currently on pressure-support with pressure of 10 and CPAP of 5, tolerating them well so far #2. Elevated inflammatory markers including LDH and a d-dimer, which are improving and patient is currently on Decadron 4 mg daily, and at prophylactic dose of Lovenox #3. Swollen and extremely bulky and enlarged tongue, the possibility of ALLERGIC reaction and possibility of angioedema consider possibility of an stomach obstruction and secondary swelling and the swelling has improved, and patient had the orotracheal ET tube removed and patient currently has a tracheostomy tube in place and the tongue swelling has pretty much subsided #4. Retention, currently better controlled, and she is on cognition and Norvasc on Lopressor and hydralazine #5. Increased inflammatory markers, improving #6. Hypothyroidism #6. Never smoker #7. IBS #8. Profound muscle weakness related to critical illness polyneuropathy and my opathy Plan: Continue on current vent settings, with assist-control mode of ventilation Continue current dose Decadron and prophylactic Lovenox Patient is doing well Continues on empiric antibiotics for purulent drainage from around the PEG tube site which we will culture Continue nutritional support Continue with empiric Levaquin Physical therapy to continue working on passive range of motion Chest x-ray and labs reviewed Discharge to LTAC facility once the insurance authorization is obtained I performed a history & physical examination of the patient and discussed their management with my nurse practitioner, Danyell Larsen. I reviewed the nurse practitioner's note and agree with the documented findings and plan of care. Lung sounds are positive for diminished breath sounds. The findings and the impression was discussed with the patient. I attest to the documentation by the nurse practitioner. Time with Patient: Greater than 30
--- NOTE | 2020-09-24 12:28 | P.PN ---
<Kayce Morocho - Last Filed: 09/24/20 12:24> Subjective Progress Note Date: 09/24/20 CHIEF COMPLAINT: Respiratory failure HISTORY OF PRESENT ILLNESS: Patient is status post tracheostomy and PEG tube placement. She is tolerating tube feedings. Tube feeds are at goal. Patient is scheduled to be transferred to [facility] later today. She is on mechanical ventilation. Patient is status post excision and drainage of abdominal wall abscess by Dr. Al. Cultures were obtained. She remains on antibiotics. Per nursing staff there is only a small amount of drainage on the dressing around the PEG tube. The erythema has resolved. Afebrile WBC 6.6 hemoglobin 7.9 PHYSICAL EXAM: VITAL SIGNS: Reviewed. GENERAL: Well-developed in no acute distress. HEENT: Trach site clean dry and intact ABDOMEN: Soft. Nondistended. Nontender. Minimal drainage on dressing around PEG tube site NEUROLOGIC: Alert and oriented. Cranial nerves II through XII grossly intact. ASSESSMENT: 1. Acute hypoxic respiratory failure secondary to COVID-19 pneumonia. Status post tracheostomy placement 2. Severe protein calorie malnutrition status post PEG tube placement 3. Suspected infected hematoma at PEG tube site status post bedside I&D by Dr. Al PLAN: -Continue ICU management -Continue supportive care -Continue antibiotics -Continue tube feedings Physician Copy Coordinator note has been reviewed by physician. Signing provider agrees with the documented findings, assessment, and plan of care. Objective - Vital Signs Vital signs: Vital Signs Temp 98.4 F 09/24/20 04:00 Pulse 84 09/24/20 09:00 Resp 20 09/24/20 09:00 BP 121/66 09/24/20 09:00 Pulse Ox 99 09/24/20 09:00 Intake & Output 09/23/20 09/24/20 09/24/20 18:59 06:59 18:59 Intake Total 1134 990 255 Output Total 2825 865 360 Balance -1691 125 -105 Weight 73.8 kg 73.5 kg Intake: IV 255 240 60 Sodium Chloride 0.9% 500 240 240 60 ml 500 ml @ 20 mls/hr IV .Q24H [facility] Rx#:[id number] pressure bag 15 Intake, IV Titration 100 Amount Levofloxacin 500Mg-D5w 100 Pmx 500 mg In Dextrose/ Water 1 100ml.bag @ 100 mls/hr IVPB Q24H [facility] Rx#: [id number] Tube Feeding 614 610 150 Other 165 140 45 Output: Urine 2825 865 360 Other: Voiding Method Indwelling Catheter Indwelling Catheter Indwelling Catheter # Bowel Movements 1 2 ABP, PAP, CO, CI - Last Documented Arterial Blood Pressure 116/55 - Labs CBC & Chem 7: 09/24/20 04:45 09/24/20 04:45 Labs: Abnormal Lab Results - Last 24 Hours (Table) 09/23/20 09/23/20 09/23/20 Range/Units 13:19 17:35 23:42 RBC (3.80-5.40) m/uL Hgb (11.4-16.0) gm/dL Hct (34.0-46.0) % Sodium (137-145) mmol/L BUN (7-17) mg/dL Creatinine (0.52-1.04) mg/dL Glucose (74-99) mg/dL POC Glucose (mg/dL) 227 H 143 H 131 H (75-99) mg/dL AST (14-36) U/L ALT (4-34) U/L Alkaline Phosphatase (38-126) U/L Total Protein (6.3-8.2) g/dL Albumin (3.5-5.0) g/dL 09/24/20 09/24/20 09/24/20 Range/Units 04:45 04:45 06:09 RBC 2.77 L (3.80-5.40) m/uL Hgb 7.9 L (11.4-16.0) gm/dL Hct 25.2 L (34.0-46.0) % Sodium 134 L (137-145) mmol/L BUN 22 H (7-17) mg/dL Creatinine 0.44 L (0.52-1.04) mg/dL Glucose 118 H (74-99) mg/dL POC Glucose (mg/dL) 142 H (75-99) mg/dL AST 51 H (14-36) U/L ALT 127 H (4-34) U/L Alkaline Phosphatase 138 H (38-126) U/L Total Protein 5.0 L (6.3-8.2) g/dL Albumin 2.8 L (3.5-5.0) g/dL 09/24/20 Range/Units 11:20 RBC (3.80-5.40) m/uL Hgb (11.4-16.0) gm/dL Hct (34.0-46.0) % Sodium (137-145) mmol/L BUN (7-17) mg/dL Creatinine (0.52-1.04) mg/dL Glucose (74-99) mg/dL POC Glucose (mg/dL) 175 H (75-99) mg/dL AST (14-36) U/L ALT (4-34) U/L Alkaline Phosphatase (38-126) U/L Total Protein (6.3-8.2) g/dL Albumin (3.5-5.0) g/dL Microbiology - Last 24 Hours (Table) 09/23/20 11:00 Gram Stain - Preliminary Abdomen Wound Culture - Preliminary Gram Neg Bacilli 09/23/20 11:00 Anaerobic Culture - Preliminary Abdomen <David Al - Last Filed: 09/24/20 16:02> Subjective As above. Gastrostomy site packing was removed. Area was irrigated with saline. No significant purulence noted. Tenderness is minimal. Mild erythema. Continue local wound care to the PEG tube site. Bolster remains quite loose. She is tolerating tube feeds. Stable for transfer. Continue local wound care at [facility]. I was able to meet the patient's in person and show him the feeding tube site. Objective - Vital Signs Vital signs: Vital Signs Temp 98.4 F 09/24/20 04:00 Pulse 88 09/24/20 14:00 Resp 11 L 09/24/20 14:00 BP 104/58 09/24/20 14:00 Pulse Ox 99 09/24/20 14:00 Intake & Output 09/23/20 09/24/20 09/24/20 18:59 06:59 18:59 Intake Total 1134 990 555 Output Total 2825 865 2360 Balance -1691 125 -1805 Weight 73.8 kg 73.5 kg Intake: IV 255 240 60 Sodium Chloride 0.9% 500 240 240 60 ml 500 ml @ 20 mls/hr IV .Q24H [facility] Rx#:[id number] pressure bag 15 Intake, IV Titration 100 Amount Levofloxacin 500Mg-D5w 100 Pmx 500 mg In Dextrose/ Water 1 100ml.bag @ 100 mls/hr IVPB Q24H [facility] Rx#: [id number] Tube Feeding 614 610 450 Other 165 140 45 Output: Urine 2825 785 2360 Other: Voiding Method Indwelling Catheter Indwelling Catheter Indwelling Catheter # Bowel Movements 1 2 ABP, PAP, CO, CI - Last Documented Arterial Blood Pressure 116/55 - Labs CBC & Chem 7: 09/24/20 04:45 09/24/20 04:45 Labs: Abnormal Lab Results - Last 24 Hours (Table) 09/23/20 09/23/20 09/24/20 Range/Units 17:35 23:42 04:45 RBC 2.77 L (3.80-5.40) m/uL Hgb 7.9 L (11.4-16.0) gm/dL Hct 25.2 L (34.0-46.0) % Sodium (137-145) mmol/L BUN (7-17) mg/dL Creatinine (0.52-1.04) mg/dL Glucose (74-99) mg/dL POC Glucose (mg/dL) 143 H 131 H (75-99) mg/dL AST (14-36) U/L ALT (4-34) U/L Alkaline Phosphatase (38-126) U/L Total Protein (6.3-8.2) g/dL Albumin (3.5-5.0) g/dL 09/24/20 09/24/20 09/24/20 Range/Units 04:45 06:09 11:20 RBC (3.80-5.40) m/uL Hgb (11.4-16.0) gm/dL Hct (34.0-46.0) % Sodium 134 L (137-145) mmol/L BUN 22 H (7-17) mg/dL Creatinine 0.44 L (0.52-1.04) mg/dL Glucose 118 H (74-99) mg/dL POC Glucose (mg/dL) 142 H 175 H (75-99) mg/dL AST 51 H (14-36) U/L ALT 127 H (4-34) U/L Alkaline Phosphatase 138 H (38-126) U/L Total Protein 5.0 L (6.3-8.2) g/dL Albumin 2.8 L (3.5-5.0) g/dL Microbiology - Last 24 Hours (Table) 09/23/20 11:00 Gram Stain - Preliminary Abdomen Wound Culture - Preliminary Gram Neg Bacilli 09/23/20 11:00 Anaerobic Culture - Preliminary Abdomen Assessment and Plan (1) Respiratory failure Status: Acute Code(s): J96.90 - RESPIRATORY FAILURE, UNSP, UNSP W HYPOXIA OR HYPERCAPNIA SNOMED Code(s): 349787688
--- NOTE | 2020-09-24 13:44 | P.DS ---
Providers Date of admission: 09/05/20 21:59 Attending physician: Juan Peace Consults: 09/06/20 14:19 Consult Physician Routine Consulting Provider: Malinda Bazzi Consult Reason/Comments: Acute hypoxic respiratory failure/COVID 19 pneumonia Do you want consulting provider notified?: Yes 09/07/20 20:59 Consult Physician Routine Consulting Provider: Andrew Hawkins Consult Reason/Comments: Abnormal troponin Do you want consulting provider notified?: Yes 09/16/20 09:25 Consult Physician Routine Consulting Provider: David Al Consult Reason/Comments: trach and peg Do you want consulting provider notified?: Yes 09/17/20 15:51 Consult Physician Routine Consulting Provider: Vidal Mccoy Consult Reason/Comments: Tongue swelling Do you want consulting provider notified?: Already Contacted Primary care physician: Uriah Huffguille [place] [facility] Course: Diagnoses: -Acute severe bilateral COVID 19 pneumonia, improving -Acute severe hypoxic respiratory failure, she is status post tracheostomy tube and PEG tube on 09/17/2020 -Acute delirium and acute metabolic encephalopathy from COVID 19 pneumonia, improved and currently she is alert and awake. -Acute PEG tube site cellulitis. Status post I and D by Dr. Al, wound cultures, gram-negative bacilli. Surgery team recommended to discharge patient on Levaquin. -mildly abnormal troponin, heel stiffener recommended conservative medical management and normal LV function per echo -Hypothyroidism -Essential Hypertension -Hyperlipidemia -Asthma -GERD - irritable bowel syndrome: -Diabetes mellitus type 2 -Obesity BMI 31.4 Hospital course: 65-year-old female , whose PCP is Dr. Haq, states she's been exposed to Covid 19 from both her son and daughter who states she's had smiilar symptoms for last 8 days which include nausea vomiting recently diarrhea rhinorrhea no overt shortness of breath she does have a cough also a fever and generalized weakness. decreased oral intake. Patient found to have acute hypoxic respiratory failure secondary to bilateral acute Covid 19 pneumonia, patient was admitted to the hospital on 09/05/2020, transfer to the intensive care unit on 09/07/2020 and intubated on 09/07/2020, received a dose of Actemra 1, and convalescent plasma 1 on 09/07/2020. Patient received a tracheostomy tube and PEG tube on 09/17/2020, without complications, Currently patient awake and alert and follows commands. She has been followed closely by pulmonary/critical care team. Surgery team did the tracheostomy and PEG tube placement Currently patient is medically stable and she was cleared by all consultants including the pulmonary/critical care team to be transferred to for LTAC facility He would be discharged on short course of dexamethasone, oral Lasix, vitamin C, vitamin D and zinc. Also prophylactic dose of Lovenox, multiple blood pressure medication including hydralazine, metoprolol and Lasix. Her blood pressure is expected to improve with stopping steroids dexamethasone. Also levofloxacin, short oral course while monitoring her cellulitis in the abdomen around PEG tube. Problems and management plan were discussed with the patient and he verbalized understanding and acceptance Patient was found stable and can be discharged home however he needs follow-up as an outpatient. Patient was instructed to follow up with PCP to [facility] within one week and patient agrees. Patient recommended to follow-up with Dr. Leon in 3-4 weeks, surgeon Dr. Mireles went 2 weeks [address] heel stiffener Dr. Bach in 2-4 weeks Physical exam -Gen: patient is a AAOx3, no distress. Status post tracheostomy. Follow command CVS: S1-S2, RRR, no murmur Lungs: B/L CTA, no wheezing -Abdomen: soft, no distention, no tenderness, positive bowel sounds. Status post PEG tube, improving cellulitis around PEG opening , wound is clean and healing Extremity: no leg edema or induration Time spent more than 35 minutes Patient Condition at Discharge: Fair Plan - Discharge Summary New Discharge Prescriptions: New dexAMETHasone ORAL [Hexadrol] 4 mg PO DAILY 2 Days #2 tab Furosemide [Lasix] 40 mg PO DAILY #30 tablet Metoprolol Tartrate [Lopressor] 50 mg PO TID tab Enoxaparin [Lovenox] 40 mg SQ DAILY syringe INSULIN ASPART (NovoLOG) [NovoLOG (formulary)] 0 unit SQ Q6H vial Pantoprazole Sodium [Protonix] 40 mg PO BID #60 tablet. Cholecalciferol [Vitamin D3 (25 Mcg = 1000 Iu)] 125 mcg PO DAILY tablet hydrALAZINE HCL [Apresoline] 100 mg PO TID tab Lactulose [Cephulac] 30 gm PO BID PRN ml PRN Reason: Constipation Levofloxacin [Levaquin] 500 mg PO DAILY 7 Days #7 tab Zinc Sulfate [Orazinc] 220 mg PO DAILY cap Chlorhexidine Gluconate [Peridex] 15 ml MUCOUS MEM BID ml Ascorbic Acid [Vitamin C] 1,000 mg PO DAILY tab Albuterol Inhaler [Ventolin Hfa Inhaler] 2 puff INHALATION RT-QID PRN puff PRN Reason: Shortness Of Breath Or Wheezing Continue Rosuvastatin [Crestor] 10 mg PO HS Montelukast [Singulair] 10 mg PO HS Levothyroxine Sodium [Synthroid] 75 mcg PO MOTUWETHFR Citalopram Hydrobromide [CeleXA] 40 mg PO DAILY Aspirin EC [Ecotrin Low Dose] 81 mg PO HS Levothyroxine Sodium [Synthroid] 37.5 mcg PO SA Omeprazole 20 mg PO BID Fexofenadine HCl [Shamika Allergy] 180 mg PO HS Changed Melatonin 5 mg PO HS PRN #0 PRN Reason: Insomnia Discontinued Metoprolol Tartrate [Lopressor] 100 mg PO DAILY metFORMIN HCL [Glucophage] 500 mg PO BID lisinopriL [Prinivil] 5 mg PO HS amLODIPine [Norvasc] 5 mg PO DAILY@1400 Multivitamins, Thera [Multivitamin (formulary)] 1 tab PO HS lisinopriL [Zestril] 10 mg PO DAILY Discharge Medication List Levothyroxine Sodium [Synthroid] 75 mcg PO MOTUWETHFR 05/06/15 [History] Montelukast [Singulair] 10 mg PO HS 05/06/15 [History] Rosuvastatin [Crestor] 10 mg PO HS 05/06/15 [History] Aspirin EC [Ecotrin Low Dose] 81 mg PO HS 09/05/20 [History] Citalopram Hydrobromide [CeleXA] 40 mg PO DAILY 09/05/20 [History] Fexofenadine HCl [Shamika Allergy] 180 mg PO HS 09/05/20 [History] Levothyroxine Sodium [Synthroid] 37.5 mcg PO SA 09/05/20 [History] Omeprazole 20 mg PO BID 09/05/20 [History] Ascorbic Acid [Vitamin C] 1,000 mg PO DAILY tab 09/23/20 [Rx] Chlorhexidine Gluconate [Peridex] 15 ml MUCOUS MEM BID ml 09/23/20 [Rx] Cholecalciferol [Vitamin D3 (25 Mcg = 1000 Iu)] 125 mcg PO DAILY tablet 09/23/20 [Rx] Enoxaparin [Lovenox] 40 mg SQ DAILY syringe 09/23/20 [Rx] Furosemide [Lasix] 40 mg PO DAILY #30 tablet 09/23/20 [Rx] INSULIN ASPART (NovoLOG) [NovoLOG (formulary)] 0 unit SQ Q6H vial 09/23/20 [Rx] Lactulose [Cephulac] 30 gm PO BID PRN ml 09/23/20 [Rx] Levofloxacin [Levaquin] 500 mg PO DAILY 7 Days #7 tab 09/23/20 [Rx] Melatonin 5 mg PO HS PRN #0 09/23/20 [Rx] Metoprolol Tartrate [Lopressor] 50 mg PO TID tab 09/23/20 [Rx] Pantoprazole Sodium [Protonix] 40 mg PO BID #60 tablet.dr 09/23/20 [Rx] Zinc Sulfate [Orazinc] 220 mg PO DAILY cap 09/23/20 [Rx] dexAMETHasone ORAL [Hexadrol] 4 mg PO DAILY 2 Days #2 tab 09/23/20 [Rx] hydrALAZINE HCL [Apresoline] 100 mg PO TID tab 09/23/20 [Rx] Albuterol Inhaler [Ventolin Hfa Inhaler] 2 puff INHALATION RT-QID PRN puff 09/24/20 [Rx] Follow up Appointment(s)/Referral(s): David Al MD [Medical Doctor] - 1 Week (general surgeon ) Alejandro Haq MD [Primary Care Provider] - 1-2 days Maninder Harris MD [STAFF PHYSICIAN] - 2 Weeks (heel stiffener ) Cheo Leon DO [Doctor of Osteopathic Medicine] - 4 Weeks (gas torch solderer ) Discharge Disposition: [facility]
[2020-09-24 14:47] VITALS: BP 104/58; PULSE 88; RESP 11
== END 2020-09-24 15:37 | DRG 4 ==
LOC: EC 17:34 → 4SSUR 21:59 → 3SCARD 09-06 17:17 → 2SICU 09-07 02:31
PROVIDERS: ADMIT Hospitalist; ATTEND Hospitalist
PROC: 3E0333Z Introduction of Anti-inflammatory into Peripheral Vein, Percutaneous Approach (ICD-10-PCS; 2020-09-05)
PROC: 5A1955Z Respiratory Ventilation, Greater than 96 Consecutive Hours (ICD-10-PCS; principal; 2020-09-07)
PROC: XW043H5 Introduction of Tocilizumab into Central Vein, Percutaneous Approach, New Technology Group 5 (ICD-10-PCS; 2020-09-07)
PROC: XW13325 Transfusion of Convalescent Plasma (Nonautologous) into Peripheral Vein, Percutaneous Approach, New Technology Group 5 (ICD-10-PCS; 2020-09-07)
PROC: 0BH17EZ Insertion of Endotracheal Airway into Trachea, Via Natural or Artificial Opening (ICD-10-PCS; 2020-09-07)
PROC: 05H633Z Insertion of Infusion Device into Left Subclavian Vein, Percutaneous Approach (ICD-10-PCS; 2020-09-08)
PROC: 0DH63UZ Insertion of Feeding Device into Stomach, Percutaneous Approach (ICD-10-PCS; 2020-09-17)
PROC: 0B110F4 Bypass Trachea to Cutaneous with Tracheostomy Device, Open Approach (ICD-10-PCS; 2020-09-17 14:00)
PROC: 0W9F3ZZ Drainage of Abdominal Wall, Percutaneous Approach (ICD-10-PCS; 2020-09-23)
DX: U07.1 COVID-19 (principal); J96.01 Acute respiratory failure with hypoxia; J12.82 Pneumonia due to coronavirus disease 2019; G93.41 Metabolic encephalopathy; A08.39 Other viral enteritis; G72.81 Critical illness myopathy; G62.81 Critical illness polyneuropathy; L03.311 Cellulitis of abdominal wall; E87.3 Alkalosis; K94.22 Gastrostomy infection; Z90.710 Acquired absence of both cervix and uterus; I10 Essential (primary) hypertension; E07.9 Disorder of thyroid, unspecified; K21.9 Gastro-esophageal reflux disease without esophagitis; I73.00 Raynaud's syndrome without gangrene; K58.9 Irritable bowel syndrome, unspecified; K44.9 Diaphragmatic hernia without obstruction or gangrene; R01.1 Cardiac murmur, unspecified; Z79.890 Hormone replacement therapy; Z79.899 Other long term (current) drug therapy; Z79.84 Long term (current) use of oral hypoglycemic drugs; E03.9 Hypothyroidism, unspecified; N28.9 Disorder of kidney and ureter, unspecified; D72.810 Lymphocytopenia; Z79.01 Long term (current) use of anticoagulants; R79.89 Other specified abnormal findings of blood chemistry; E78.5 Hyperlipidemia, unspecified; J45.909 Unspecified asthma, uncomplicated; E11.9 Type 2 diabetes mellitus without complications; D64.9 Anemia, unspecified; E88.09 Other disorders of plasma-protein metabolism, not elsewhere classified; E66.9 Obesity, unspecified; Z68.31 Body mass index [BMI] 31.0-31.9, adult; E11.65 Type 2 diabetes mellitus with hyperglycemia; K58.0 Irritable bowel syndrome with diarrhea; T78.3XXA Angioneurotic edema, initial encounter; R00.0 Tachycardia, unspecified; Z88.0 Allergy status to penicillin; E86.0 Dehydration; R74.01 Elevation of levels of liver transaminase levels; I95.9 Hypotension, unspecified
CPT/HCPCS: 36415; 36573; 36600; 43246; 71045; 71046; 71275; 74018; 74150; 80048; 80053; 81003; 82550; 82553; 82728; 82805; 83605; 83615; 83625; 83735; 83880; 84132; 84145; 84484; 85025; 85379; 85384; 85610; 85730; 86140; 86850; 86900; 86901; 87040; 87070; 87075; 87077; 87186; 87205; 87635; 93005; 93306; 94002; 94003; 94640; 94660; 96360; 96361; 99285

== ENCOUNTER 2020-12-16 14:56 | Emergency (ER) | payer BC ==
[2020-12-16] MEDS ORDERED: SODIUM CHLORIDE 0.9% 1,000 ML IV STA (15:38)
[2020-12-16] MEDS ORDERED: MECLIZINE 12.5 MG TAB PO STA (15:46)
[2020-12-16] MEDS ORDERED: KETOROLAC 15 MG/ML 1 ML VIAL IVP STA (15:46)
[2020-12-16] MEDS ORDERED: ACETAMINOPHEN TAB 500 MG TAB PO STA (15:46)
[2020-12-16] MEDS ORDERED: diphenhydrAMINE 50 MG/ML 1 ML VIAL IVP STA (15:46)
[2020-12-16] MEDS ORDERED: PROCHLORPERAZINE INJ 10 MG/2 ML VIAL IVP STA (15:49)
[2020-12-16 16:11] LABS: Basophils % (A) 0 %; Eosinophils # (A) 0.1 k/uL (0-0.7); Eosinophils % (A) 1 %; HCT 34.9 % (34.0-46.0); HGB 11.3 gm/dL (11.4-16.0); Lymphocytes # (A) 1.6 k/uL (1.0-4.8); Lymphocytes % (A) 23 %; MCH 25.7 pg (25.0-35.0); MCHC 32.5 g/dL (31.0-37.0); MCV 78.9 fL (80.0-100.0); Mean Platelet Volume 7.2; Monocytes # (A) 0.5 k/uL (0-1.0); Monocytes % (A) 7 %; Neutrophils # (A) 4.4 k/uL (1.3-7.7); Neutrophils % (A) 63 %; Platelet Count 324 k/uL (150-450); RBC 4.42 m/uL (3.80-5.40); RDW 13.7 % (11.5-15.5)
[2020-12-16 16:32] LABS: ALT 48 U/L (4-34); AST 42 U/L (14-36); African American GFR (CKD) >90 (>60 ml/min/1.73 sqM); Albumin 3.9 g/dL (3.5-5.0); Alkaline Phosphatase 157 U/L (38-126); Anion Gap 10 mmol/L; Blood Urea Nitrogen 10 mg/dL (7-17); Calcium 9.8 mg/dL (8.4-10.2); Carbon Dioxide 23 mmol/L (22-30); Chloride 104 mmol/L (98-107); Creatine Kinase 26 U/L (30-135); Glucose 109 mg/dL (74-99); Non-African American GFR(CKD) >90 (>60 ml/min/1.73 sqM); Potassium 3.6 mmol/L (3.5-5.1); Sodium 137 mmol/L (137-145); Total Bilirubin 0.1 mg/dL (0.2-1.3); Total Protein 6.4 g/dL (6.3-8.2)
[2020-12-16 16:37] LABS: INR 0.9 (<1.2); Prothrombin Time 9.7 sec (9.0-12.0)
--- NOTE | 2020-12-16 16:37 | XR ---
EXAMINATION TYPE: XR chest 1V portable DATE OF EXAM: 12/16/2020 CLINICAL HISTORY: chest pain. TECHNIQUE: Portable frontal view of the chest. COMPARISON: 09/24/2020 FINDINGS: Tracheostomy tube overlies the tracheal air column. The cardiomediastinal silhouette is again mildly enlarged. Mild diffuse chronic interstitial coarseni ng. Pulmonary vasculature is prominent centrally, particularly in the right infrahilar region. There is no focal air space opacity. Increased density over the lung bases likely represent overlapping marilyn ast soft tissues. No pleural effusion. No pneumothorax seen. No acute displaced osseous fracture. IMPRESSION: Cardiomegaly. There may be mild central pulmonary vascular congestion.
[2020-12-16 16:45] LABS: Partial Thromboplastin Time 20.1 sec (22.0-30.0)
--- NOTE | 2020-12-16 17:54 | ED ---
General Adult HPI - General Chief complaint: Dizziness Stated complaint: dehydration, dizziness Time Seen by Provider: 12/16/20 15:07 Source: patient, family Mode of arrival: wheelchair Limitations: no limitations - History of Present Illness Initial comments: Patient is 65-year-old female with past medical history remarkable for hypertension, GERD, thyroid disorder, COVID-19 infection resulting in hypoxic respiratory failure and tracheostomy placement who presents emergency Department after feeling lightheaded and dehydrated after being on the boat today and heat. Patient states that when she got off the boat, she felt lightheaded. This resolved when she sat down. She states that she also had some mild room spinning sensation does have a history of vertigo. She states she feels nauseous now and the lightheadedness sensation is improved. She denies any chest pain, shortness of breath, abdominal pain. She denies any sensory deficits but does endorse a mild tension-like headache. She denies any blurry vision. She states she is otherwise feels okay. She denies any fevers, chills, cough. She has no other acute complaints at this time. Patient presents with her over concern for possible dehydration. - Related Data Home Medications Medication Instructions Recorded Confirmed Levothyroxine Sodium [Synthroid] 75 mcg PO MOTUWETHFR 05/06/15 12/16/20 Montelukast [Singulair] 10 mg PO HS 05/06/15 12/16/20 Aspirin EC [Ecotrin Low Dose] 81 mg PO HS 09/05/20 12/16/20 Citalopram Hydrobromide [CeleXA] 40 mg PO DAILY 09/05/20 12/16/20 Fexofenadine HCl [Shamika Allergy] 180 mg PO HS 09/05/20 12/16/20 Levothyroxine Sodium [Synthroid] 37.5 mcg PO SA 09/05/20 12/16/20 Atorvastatin [Lipitor] 20 mg PO HS 12/16/20 12/16/20 Biotin 5,000 mcg PO DAILY 12/16/20 12/16/20 Metoprolol Tartrate [Lopressor] 100 mg PO DAILY 12/16/20 12/16/20 Nitroglycerin Sl Tabs [Nitrostat] 0.4 mg SUBLINGUAL Q5M PRN 12/16/20 12/16/20 hydrALAZINE HCL 25 mg PO TID 12/16/20 12/16/20 Allergies Allergy/AdvReac Type Severity Reaction Status Date / Time Penicillins Allergy Rash/Hives Verified 12/16/20 15:04 Review of Systems ROS Statement: Those systems with pertinent positive or pertinent negative responses have been documented in the HPI. Review of Systems: CONST: Denies fever EYES: Denies blurry vision ENT: Denies nasal congestion C/V: Denies Chest pain RESP: Denies shortness of breath GI: Endorses nausea : Denies dysuria SKIN: Denies rash. MSK: Denies joint pain. NEURO: Endorses headache ROS Other: All systems not noted in ROS Statement are negative. Past Medical History Past Medical History: GERD/Reflux, Hypertension, Thyroid Disorder Additional Past Medical History / Comment(s): HEART murmur, IBS, hiatal hernia. raynauds. covid pneumonia on vent for long time, trached. History of Any Multi-Drug Resistant Organisms: None Reported Past Surgical History: Section, Hysterectomy, Orthopedic Surgery, Tonsillectomy, Uterine Ablation Additional Past Surgical History / Comment(s): RT CARPAL TUNNEL, 2 C-Sections Past Anesthesia/Blood Transfusion Reactions: Postoperative Nausea & Vomiting (PONV) Past Psychological History: No Psychological Hx Reported Smoking Status: Never smoker Past Alcohol Use History: None Reported Past Drug Use History: None Reported - Past Family History Father Family Medical History: Cancer Additional Family Medical History / Comment(s): Father has heart problems and has had prostate cancer. He is 78 yrs old. Mother Family Medical History: Cancer, Dementia Additional Family Medical History / Comment(s): Mother of dementia at age 78 yrs. General Exam - General Exam Comments Initial Comments: General: Appears in no acute distress. HEAD: Normal with no signs of head trauma. EYES: PERRLA, EOMI, conjunctiva normal, no discharge. ENT: Hearing grossly intact. Patient has dry oropharynx mildly. RESPIRATORY: Clear breath sounds bilaterally. No wheezes, rales, or rhonchi. C/V: Regular rate and rhythm. S1 and S2 auscultated, no edema, peripheral pulses 2+ and intact throughout ABD: Abd is soft, nontender, nondistended EXT: Normal range of motion, no obvious deformity SKIN: No rashes or lesions observed on exposed skin. NEURO: Alert and oriented 4. Cranial nerves II-12 are intact. No focal sensory strength deficits. Cerebellar function is intact as evident by normal finger to nose testing. Limitations: no limitations Course Vital Signs 12/16/20 12/16/20 12/16/20 15:00 17:00 18:00 Temperature 98.4 F 97.7 F 98.0 F Pulse Rate 65 64 70 Respiratory 16 18 18 Rate Blood Pressure 146/82 130/77 134/82 O2 Sat by Pulse 98 98 98 Oximetry Medical Decision Making - Medical Decision Making Based on the patient's presentation and physical exam, I do believe she likely expensed dehydration, however cannot rule out her typical vertigo at this time versus cardiac etiology with her age and history. Therefore we will obtain a cardiac workup troponin, EKG, chest x-ray. We also obtained loculates as well as a CPK. She'll be given a 1 L fluid bolus as well as IV Benadryl, Toradol, Antivert, Compazine and by mouth Tylenol. She'll be subsequently reevaluated for improvement. She was in agreement with this plan. Patient's EKG shows no signs concerning for acute ischemia. Patient's chest x- ray shows cardiac megaly with mild central pulmonary vascular congestion. Laboratory studies are remarkable for a bike acidic anemia with a hemoglobin of 11.3. CPK is low. Patient has nonspecific LFT elevations as well. Reevaluation of the patient is feeling back to normal. She is tolerating by mouth intake at this time. She is ambulatory without difficulty. She has no lightheadedness and no nausea. She is requesting to go home at this time. I did review with her her workup in other no remarkable findings. I do believe it is safe for her to be discharged this time. She was in agreement with this plan. I instructed the patient to follow up with their PCP in the next 3 days. . I explained that the patient should return to the emergency department if they experience any worsening symptoms. Strict return precautions were discussed with the patient. The patient expressed understanding of these instructions. I answered all questions that the patient had. The patient was discharged home in improved condition with their prescriptions and follow up information. - Lab Data Result diagrams: 12/16/20 16:04 12/16/20 16:04 Lab Results 12/16/20 12/16/20 12/16/20 Range/Units 16:04 16:04 16:04 WBC 7.0 (3.8-10.6) k/uL RBC 4.42 (3.80-5.40) m/uL Hgb 11.3 L (11.4-16.0) gm/dL Hct 34.9 (34.0-46.0) % MCV 78.9 L (80.0-100.0) fL MCH 25.7 (25.0-35.0) pg MCHC 32.5 (31.0-37.0) g/dL RDW 13.7 (11.5-15.5) % Plt Count 324 (150-450) k/uL MPV 7.2 Neutrophils % 63 % Lymphocytes % 23 % Monocytes % 7 % Eosinophils % 1 % Basophils % 0 % Neutrophils # 4.4 (1.3-7.7) k/uL Lymphocytes # 1.6 (1.0-4.8) k/uL Monocytes # 0.5 (0-1.0) k/uL Eosinophils # 0.1 (0-0.7) k/uL Basophils # 0.0 (0-0.2) k/uL Manual Slide Review Performed PT (9.0-12.0) sec INR (<1.2) APTT (22.0-30.0) sec Sodium 137 (137-145) mmol/L Potassium 3.6 (3.5-5.1) mmol/L Chloride 104 (98-107) mmol/L Carbon Dioxide 23 (22-30) mmol/L Anion Gap 10 mmol/L BUN 10 (7-17) mg/dL Creatinine 0.56 (0.52-1.04) mg/dL Est GFR (CKD-EPI)AfAm >90 (>60 ml/min/1.73 sqM) Est GFR (CKD-EPI)NonAf >90 (>60 ml/min/1.73 sqM) Glucose 109 H (74-99) mg/dL Calcium 9.8 (8.4-10.2) mg/dL Total Bilirubin 0.1 L (0.2-1.3) mg/dL AST 42 H (14-36) U/L ALT 48 H (4-34) U/L Alkaline Phosphatase 157 H (38-126) U/L Creatine Kinase 26 L (30-135) U/L Troponin I <0.012 (0.000-0.034) ng/mL Total Protein 6.4 (6.3-8.2) g/dL Albumin 3.9 (3.5-5.0) g/dL 12/16/20 Range/Units 16:04 WBC (3.8-10.6) k/uL RBC (3.80-5.40) m/uL Hgb (11.4-16.0) gm/dL Hct (34.0-46.0) % MCV (80.0-100.0) fL MCH (25.0-35.0) pg MCHC (31.0-37.0) g/dL RDW (11.5-15.5) % Plt Count (150-450) k/uL MPV Neutrophils % % Lymphocytes % % Monocytes % % Eosinophils % % Basophils % % Neutrophils # (1.3-7.7) k/uL Lymphocytes # (1.0-4.8) k/uL Monocytes # (0-1.0) k/uL Eosinophils # (0-0.7) k/uL Basophils # (0-0.2) k/uL Manual Slide Review PT 9.7 (9.0-12.0) sec INR 0.9 (<1.2) APTT 20.1 L (22.0-30.0) sec Sodium (137-145) mmol/L Potassium (3.5-5.1) mmol/L Chloride (98-107) mmol/L Carbon Dioxide (22-30) mmol/L Anion Gap mmol/L BUN (7-17) mg/dL Creatinine (0.52-1.04) mg/dL Est GFR (CKD-EPI)AfAm (>60 ml/min/1.73 sqM) Est GFR (CKD-EPI)NonAf (>60 ml/min/1.73 sqM) Glucose (74-99) mg/dL Calcium (8.4-10.2) mg/dL Total Bilirubin (0.2-1.3) mg/dL AST (14-36) U/L ALT (4-34) U/L Alkaline Phosphatase (38-126) U/L Creatine Kinase (30-135) U/L Troponin I (0.000-0.034) ng/mL Total Protein (6.3-8.2) g/dL Albumin (3.5-5.0) g/dL - EKG Data -: EKG Interpreted by Me EKG Comments: 12-lead Electrocardiogram Interpretation Note EKG was reviewed and interpreted by myself. 12-lead ECG performed at 1554 is interpreted by me as revealing bradycardia at a rate of 54 beats per minute. [place] is normal. CT interval is 154 ms, QRS duration is 82 ms, QTc is 449 ms.. There is a T-wave inversion in lead III which I do see on prior EKGs.. R wave progression across the precordium was satisfactory. By my interpretation this EKG is non-diagnostic for acute ischemia. Disposition Clinical Impression: Dehydration, Lightheadedness, Tracheostomy dependent Disposition: HOME SELF-CARE Condition: Good Instructions (If sedation given, give patient instructions): Dehydration (ED), Dizziness (ED) Is patient prescribed a controlled substance at d/c from ED?: No Referrals: Alejandro Haq MD [Primary Care Provider] - 1-2 days
[2020-12-16 18:01] VITALS: BP 134/82; PULSE 70; RESP 18; TEMP 98
== END 2020-12-16 18:02 | disposition home or self-care (01) ==
LOC: EC 14:56
DX: E86.0 Dehydration (principal); R42 Dizziness and giddiness; E07.9 Disorder of thyroid, unspecified; I10 Essential (primary) hypertension; K21.9 Gastro-esophageal reflux disease without esophagitis; K58.9 Irritable bowel syndrome, unspecified; Z79.82 Long term (current) use of aspirin; Z93.0 Tracheostomy status
CPT/HCPCS: 36415; 71045; 80053; 82550; 84484; 85025; 85610; 85730; 93005; 96361; 96374; 96375; 99284

== ENCOUNTER → 2023-01-25 | Outpatient (CLI) | payer BC ==
--- NOTE | 2023-01-26 08:09 | MM ---
Reason for Exam: Screening (asymptomatic). Last mammogram was performed 2 year(s) and 11 month(s) ago. Patient History: Menarche at age 16. First Full-Term at age 32. Late child-bearing (after 30). Hysterectomy at age 52. Postmenopausal. Patient used Hormonal Contraceptives for 7 years. Maternal aunt had breast cancer, age 58. Maternal aunt had breast cancer. Mother had breast cancer, age 58. Risk Values: Tiffany 5 year model risk: 3.1%. NCI Lifetime model risk: 11.3%. Prior Study Comparison: 03/27/2013 Left Diagnostic Mammogram, [facility]. 03/29/2018 Bilateral Screening Mammogram, [facility]. 02/27/2020 Bilateral Screening Mammogram, [facility]. Tissue Density: The breast tissue is heterogeneously dense. This may lower the sensitivity of mammography. Findings: Analyzed By CAD. Suggestion of new cluster of microcalcifications outer lower left breast proximally 7 cm from the nipple. Additional views are recommended. Otherwise benign punctate calcifications seen bilaterally. No evidence for mass or distortion. Overall Assessment: Incomplete: need additional imaging evaluation, BI-RAD 0 Management: Diagnostic Mammogram of the left breast. . Patient should continue monthly self-breast exams. A clinical breast exam by your physician is recommended on an annual basis. This exam should not preclude additional follow-up of suspicious palpable abnormalities. Note on Tiffany scores and lifetime risk: 1. A Tiffany score greater than 3% is considered moderate risk. If this is the case, consider specialist referral to assess eligibility for a risk reducing agent. 2. If overall lifetime risk for the development of breast cancer is 20% or higher, the patient may qualify for future screening with alternating mammogram and breast MRI. Electronically signed and approved by: Jonathan Apple M.D. Radiologis
== END | disposition home or self-care (01) ==
LOC: RADMAMWWP 09:57
PROVIDERS: ATTEND Family Medicine
DX: Z12.31 Encounter for screening mammogram for malignant neoplasm of breast (principal); Z78.0 Asymptomatic menopausal state; Z80.3 Family history of malignant neoplasm of breast
CPT/HCPCS: 77063; 77067

== ENCOUNTER → 2023-01-31 | Outpatient (CLI) | payer BC ==
--- NOTE | 2023-02-01 10:09 | MM ---
Reason for Exam: Additional evaluation requested from abnormal screening. Last screening mammogram was performed less than 1 month ago. Patient History: Menarche at age 16. First Full-Term at age 32. Late child-bearing (after 30). Hysterectomy at age 52. Postmenopausal. Patient used Hormonal Contraceptives for 7 years. Maternal aunt had breast cancer, age 58. Maternal aunt had breast cancer. Mother had breast cancer, age 58. Risk Values: Tiffany 5 year model risk: 3.1%. NCI Lifetime model risk: 10.9%. Prior Study Comparison: 03/29/2018 Bilateral Screening Mammogram, [facility]. 02/27/2020 Bilateral Screening Mammogram, [facility]. 01/25/2023 Bilateral MG 3D screening mammo w/cad, [facility]. Tissue Density: Left: The breast tissue is heterogeneously dense. This may lower the sensitivity of mammography. Findings: Analyzed By CAD. Grouped calcifications persist in the left breast upper aspect 7.3 cm from the nipple. Less well appreciated on MLO and CC view. Overall Assessment: Suspicious, BI-RAD 4 Management: Stereotactic Core Biopsy of the left breast. Results were given to the patient verbally at the time of exam. Patient should continue monthly self-breast exams. A clinical breast exam by your physician is recommended on an annual basis. This exam should not preclude additional follow-up of suspicious palpable abnormalities. Note on Tiffany scores and lifetime risk: 1. A Tiffany score greater than 3% is considered moderate risk. If this is the case, consider specialist referral to assess eligibility for a risk reducing agent. 2. If overall lifetime risk for the development of breast cancer is 20% or higher, the patient may qualify for future screening with alternating mammogram and breast MRI. Electronically signed and approved by: Cheo Kinney DO
== END | disposition home or self-care (01) ==
LOC: RADMAMWWP 14:55
PROVIDERS: ATTEND Family Medicine
DX: R92.8 Other abnormal and inconclusive findings on diagnostic imaging of breast (principal); Z78.0 Asymptomatic menopausal state; Z80.3 Family history of malignant neoplasm of breast
CPT/HCPCS: 77061; 77065

== ENCOUNTER → 2023-02-13 | Day surgery (SDC) | payer BC, MEDICARE ==
--- NOTE | 2023-02-17 11:07 | MM ---
Risk Values: Tiffany 5 year model risk: 3.1%. NCI Lifetime model risk: 10.9%. Prior Study Comparison: 02/27/2020 Bilateral Screening Mammogram, [facility]. 01/25/2023 Bilateral MG 3D screening mammo w/cad, [facility]. 01/31/2023 Left MG 3D work up w/cad , [facility]. Pathology Description: Location: upper outer quadrant. Marker Left Behind. Specimen Radiograph. Calcium Found: Yes Approach: CC FA Cores: 7 Skin Nicks: 1 Gauge: 9 The calcifications in question within the left breast were targeted by the undersigned. Procedure was performed by the undersigned. Informed consent was obtained and all of the patients questions were answered. The standard sterile technique was utilized and appropriate local anesthesia was obtained with 1% lidocaine. Mammotome probe was advanced and multiple core samples were obtained and sent to pathology for interpretation. Microclip marker was deployed at the site of biopsy. Post procedural mammogram demonstrates appropriate deployment of radiopaque clip marker. The patient tolerated the procedure well and left the department in stable condition. Pathology results are pending. Impression: Successful stereotactic core biopsy left breast. Pathology Results: Result: Benign, Fibrocystic change. LEFT BREAST, NEEDLE CORE BIOPSY: Proliferative fibrocystic changes including sclerosing adenosis with calcifications and moderate to florid usual type ductal hyperplasia. See note. Notes CK 5/6 immunoperoxidase stain was performed on block A2 in order to further evaluate the tissue, and examined with appropriate positive controls. The CK 5/6 immunostain highlights a myoepithelial layer surrounding glandular and tubular structures within the stroma. The epithelial cells within enlarged ducts show positive staining for CK 5/6 with a mosaic type staining pattern. The results confirm the diagnosis of the specimen as benign with sclerosing adenosis and usual type ductal hyperplasia. Overall Assessment: Benign Management: Diagnostic Mammogram of the left breast in 6 months. Electronically signed and approved by: Jonathan Apple M.D. Radiologis
== END ==
LOC: RADMAMWWP 10:01
PROVIDERS: ATTEND Surgery
DX: N60.12 Diffuse cystic mastopathy of left breast (principal); N60.22 Fibroadenosis of left breast
CPT/HCPCS: 88305; 88342; 19081; A4648

== ENCOUNTER → 2024-04-03 | Outpatient (CLI) | payer MEDICARE ==
--- NOTE | 2024-04-03 13:30 | MM ---
Reason for Exam: Clinical finding. Last mammogram was performed 1 year(s) and 2 month(s) ago. Indicated Problems: Pain of the left side (Global) for 5 Month(s). Patient History: Menarche at age 16. First Full-Term at age 32. Late child-bearing (after 30). Hysterectomy at age 52. Postmenopausal. Patient used Hormonal Contraceptives for 7 years. 02/13/2023, Benign MG stereo VAD BX LT on the left side. Maternal aunt had breast cancer, age 58. Maternal aunt had breast cancer. Mother had breast cancer, age 58. Risk Values: Tiffany 5 year model risk: 3.7%. NCI Lifetime model risk: 12.2%. Prior Study Comparison: 05/11/1998 Screening Mammogram, [facility]. 07/18/2000 Screening Mammogram, [facility]. 12/18/2007 Bilateral Screening Mammogram, [facility]. 09/08/2010 Bilateral Screening Mammogram, [facility]. 03/20/2013 Bilateral Screening Mammogram, [facility]. 03/27/2013 Left Diagnostic Mammogram, [facility]. 03/29/2018 Bilateral Screening Mammogram, [facility]. 02/27/2020 Bilateral Screening Mammogram, [facility]. 01/25/2023 Bilateral MG 3D screening mammo w/cad, [facility]. 01/31/2023 Left MG 3D work up w/cad LT, [facility]. Tissue Density: The breasts are heterogeneously dense, which may obscure small masses. Findings: Analyzed By CAD. Areas of asymmetric density are unchanged. Round and punctate calcifications are also unchanged. No significant change from prior exams. Overall Assessment: Incomplete: need additional imaging evaluation, BI-RAD 0 Management: Diagnostic Breast Ultrasound of the left breast. Laterally for breast pain [facility], , 04/03/2024 1:27 PM. Electronically signed and approved by: Joie Medrano M.D. Radiologist
--- NOTE | 2024-04-03 14:07 | USB ---
Reason for Exam: Clinical finding. Patient History: Menarche at age 16. First Full-Term at age 32. Late child-bearing (after 30). Hysterectomy at age 52. Postmenopausal. Patient used Hormonal Contraceptives for 7 years. 02/13/2023, Benign MG stereo VAD BX LT on the left side. Maternal aunt had breast cancer, age 58. Maternal aunt had breast cancer. Mother had breast cancer, age 58. Risk Values: Tiffany 5 year model risk: 3.7%. NCI Lifetime model risk: 12.2%. Technique: Method: Targeted. Prior Study Comparison: 02/27/2020 Bilateral Screening Mammogram, [facility]. 01/25/2023 Bilateral MG 3D screening mammo w/cad, [facility]. 01/31/2023 Left MG 3D work up w/cad LT, [facility]. Findings: The lateral section of the breast of the left breast, the axilla of the left breast and the retroareolar of the left breast were scanned. Targeted ultrasound lateral half of the left breast 12:00 to 6:00 including scanning of the subareolar region and axilla. Dense tissue is present in the 2:00 position, mammographic correlation. No solid or cystic lesion or axillary lymphadenopathy.. Overall Assessment: Benign, BI-RAD 2 Management: Screening Mammogram of both breasts in 1 year. Further clinical management of patient's lateral left breast pain. See note below in regards to patient's increased 5 year Tiffany score A clinical breast exam by your physician is recommended on an annual basis and results should be correlated with mammographic findings. This exam should not preclude additional follow-up of suspicious palpable abnormalities. Results were given to the patient verbally at the time of exam. Note on Tiffany scores and lifetime risk: 1. A Tiffany score greater than 3% is considered moderate risk. If this is the case, consider specialist referral to assess eligibility for a risk reducing agent. 2. If overall lifetime risk for the development of breast cancer is 20% or higher, the patient may qualify for future screening with alternating mammogram and breast MRI. [facility], , 04/03/2024 2:03 PM. Electronically signed and approved by: Joie Medrano M.D. Radiologist
== END | disposition home or self-care (01) ==
LOC: RADMAMWWP 12:46
PROVIDERS: ATTEND Surgery
CPT/HCPCS: 77062; 77066